=== PATIENT | female | born 1960 | race Caucasian/White ===

== ENCOUNTER → 2020-03-17 08:30 | Outpatient (BNVA) | payer MEDICARE, SELFPAY | PROVIDERS: PCP Internal Medicine Geriatric Medicine; Visit Provider Nurse Practitioner | DX: Z13.89 Encounter for screening for other disorder (principal) | CPT/HCPCS: Q3014 ==

== ENCOUNTER → 2020-03-31 09:52 | Outpatient (BNVA) | payer MEDICARE, MEDICAID, SELFPAY | PROVIDERS: PCP Internal Medicine Geriatric Medicine; Visit Provider Internal Medicine | DX: E03.9 Hypothyroidism, unspecified (principal) | CPT/HCPCS: 99202 ==

== ENCOUNTER 2020-03-31 11:13 | Outpatient (REF) | payer MEDICARE, MEDICAID, SELFPAY ==
[2020-03-31 14:52] LABS: Free T4 (Free Thyroxine) 1.07 ng/dL (0.71-1.85)
[2020-04-01 06:32] LABS: Thyroglobulin Antibodies <1 IU/mL (< or = 1); Thyroid Peroxidase Antibodies 120 IU/mL (<9)
== END 2020-03-31 11:14 | disposition home or self-care (01) ==
LOC: HO.10HDL 11:13
PROVIDERS: Visit Provider Internal Medicine
DX: E03.9 Hypothyroidism, unspecified (principal)
CPT/HCPCS: 36415; 84439; 84443; 86376; 86800

== ENCOUNTER 2020-04-12 07:47 | Outpatient (REF) | payer MEDICARE, MEDICAID, SELFPAY ==
--- NOTE | ~2020-04-12 | US_ITS ---
EXAMINATION: US THYROID CLINICAL INFORMATION: Hypothyroidism, unspecified. COMPARISON: None TECHNIQUE: Linear transducer diego-scale and color Doppler examination with attention to the region of the thyroid. FINDINGS: SIZE: Measurements of the thyroid lobes and nodules are given in sagittal, anteroposterior and transverse dimensions respectively. Right Thyroid Lobe: 4.0 x 1.7 x 1.4 cm, volume 5.0 mL. Parenchyma: The gland echotexture is heterogeneous. Thyroid vascularity is normal. Left Thyroid Lobe: 3.5 x 1.0 x 1.4 cm, volume 2.6 mL. Parenchyma: The gland echotexture is heterogeneous. Thyroid vascularity is normal. Isthmus: 0.4 cm in maximum AP dimension. Estimated total number of nodules greater than or equal to 1 cm: 0. Motor [employer] As[employer]er nodules are described as follows: 1. Location: Right lower pole. Size: 0.8 x 0.7 x 0.7 cm, volume 0.2 mL. Nodule characteristics: Composition: Solid (2). Echogenicity: Hyperechoic (1). Shape: Not taller than wide (0). Margins: Smooth (0). Echogenic Foci: None (0). ACR TI-RADS total points: 3 ACR TI-RADS category: 3 NODES: No lymphadenopathy is seen in the tissue surrounding the thyroid gland. US/US thyroid IMPRESSION: Small heterogeneous thyroid gland. Solitary small right thyroid nodule. ACR TI-RADS RECOMMENDATION REFERENCE: Ultrasound-guided fine-needle aspiration, followup ultrasound, no further follow up. * TR1 (0 point) and TR 2 (2 points): No FNA or follow up * TR3 (3 points): FNA if more than or equal to 2.5 cm in maximum dimension, followup ultrasound in 1, 3 and 5 years if 1.5 to 2.4 cm in maximum dimension. * TR4 (4-6 points): FNA if more than or equal to 1.5 cm in maximum dimension, followup ultrasound in 1, 2, 3 and 5 years if 1 to 1.4 cm in maximum dimension. * TR5 (more than or equal to 7 points): FNA if more than or equal to 1 cm in maximum dimension, followup ultrasound every year for 5 years if 0.5 to 0.9 cm in maximum dimension. * TR3, TR4 or TR5 nodules that are below the size threshold for follow up receive no follow up.
== END 2020-04-12 07:48 | disposition home or self-care (01) ==
LOC: HO.US 07:47
PROVIDERS: PCP Internal Medicine Geriatric Medicine; Visit Provider Internal Medicine
DX: E03.9 Hypothyroidism, unspecified (principal)
CPT/HCPCS: 76536

== ENCOUNTER → 2020-04-14 15:02 | Outpatient (BNVA) | payer MEDICARE, MEDICAID, SELFPAY | PROVIDERS: Visit Provider Internal Medicine | DX: E03.9 Hypothyroidism, unspecified (principal); E04.1 Nontoxic single thyroid nodule; E66.09 Other obesity due to excess calories | CPT/HCPCS: Q3014 ==

== ENCOUNTER → 2020-06-14 10:32 | Outpatient (BNVA) | payer MEDICARE, MEDICAID, SELFPAY | PROVIDERS: PCP Internal Medicine Geriatric Medicine; Visit Provider Internal Medicine | CPT/HCPCS: Q3014 ==

== ENCOUNTER 2020-12-31 13:19 | Outpatient (REF) | payer MEDICARE, MEDICAID, SELFPAY ==
--- NOTE | ~2020-12-31 | CT_ITS ---
EXAMINATION: CT CHEST SCREENING CLINICAL INFORMATION: Nicotine dependence. COMPARISON: None. TECHNIQUE: Multidetector volumetric CT imaging of the chest is performed without contrast using low dose technique. Additional 2-D coronal and sagittal reformatted images and axial 3-D maximum intensity projection (MIP) images are generated on the CT workstation. This CT examination was performed using dose optimization techniques as appropriate, variously including the following: *Automated exposure control *Adjustment of mA and/or kV according to patient size (this includes techniques or standardized protocols for targeted exams where dose is matched to indication/reason for exam; i.e. extremities or head) *Use of iterative reconstruction technique DLP: 293 mGy-cm FINDINGS: LUNGS: The lungs are well expanded and clear of acute pneumonic process. Mild atelectatic changes are seen in the right middle lobe. There are 1 mm punctate calcifications in the right upper lobe, superior segment right lower lobe likely calcified granulomas. There is a noncalcified 4 mm nodule left lower lobe. MEDIASTINUM: The heart size and the great vessels are normal caliber. There is no pericardial effusion. The central trachea and bronchi are widely patent. No abnormal mediastinal or axillary lymph nodes seen. There is no pericardial effusion. The thyroid lobes are symmetrical and normal. PLEURA: There is no pleural effusion. No pleural mass or thickening. AXILLA: There are small shotty lymph nodes in the axilla none of which are significant. The chest wall is unremarkable. UPPER ABDOMEN: Visualized liver, spleen, pancreas, and bilateral adrenal glands are unremarkable. OSSEOUS STRUCTURES: No lytic or sclerotic process seen. CT/CT lung screening IMPRESSION: Punctate 1 mm calcifications. There is a 4 mm noncalcified nodule. ASSESSMENT: Lung-RADS category 2: Benign. RECOMMENDATION: Low-dose annual CT chest.
== END 2020-12-31 13:20 | disposition home or self-care (01) ==
LOC: HO.CT 13:19
PROVIDERS: Visit Provider Physician Assistant Medical
DX: Z12.2 Encounter for screening for malignant neoplasm of respiratory organs (principal); F17.210 Nicotine dependence, cigarettes, uncomplicated
CPT/HCPCS: 71271; G0296

== ENCOUNTER 2021-02-01 09:00 | Outpatient (RCR) | payer MEDICARE, MEDICAID, SELFPAY | END 2021-02-25 10:20 | disposition home or self-care (01) | LOC: HO.PT 09:00 | PROVIDERS: Visit Provider Orthopaedic Surgery | DX: Z98.1 Arthrodesis status (principal) | CPT/HCPCS: 97110; 97116; 97140; 97162; 97530 ==

== ENCOUNTER 2021-06-06 08:27 | Outpatient (REF) | payer MEDICARE, MEDICAID, SELFPAY ==
--- NOTE | ~2021-06-06 | US_ITS ---
EXAMINATION: US THYROID CLINICAL INFORMATION: Nontoxic single thyroid nodule. COMPARISON: US thyroid 04/12/2020. TECHNIQUE: Linear transducer grayscale and color Doppler examination with attention to the region of the thyroid. FINDINGS: SIZE: Measurements of the thyroid lobes and nodules are given in sagittal, anteroposterior and transverse dimensions respectively. Right Thyroid Lobe: 3.6 x 1.3 x 1.6 cm, volume 3.9 mL. Previously 4.0 x 1.7 x 1.4 cm, volume 5.0 mL. Parenchyma: The gland echotexture is heterogeneous. Thyroid vascularity is increased. Left Thyroid Lobe: 3.8 x 1.2 x 1.4 cm, volume 3.3 mL. Previously 3.5 x 1.0 x 1.4 cm, volume 2.6 mL. Parenchyma: The gland echotexture is heterogeneous. Thyroid vascularity is increased. Isthmus: 0.6 cm in maximum AP dimension. Previously 0.4 cm. Estimated total number of nodules greater than or equal to 1 cm: 0. [employer] Manager nodules are described as follows: 1. Location: Right inferior lateral. Size: 0.7 x 0.7 x 0.7 cm, volume 0.2 mL. Previously: 0.8 x 0.7 x 0.7 cm, volume 0.2 mL. Nodule characteristics: Composition: Solid (2). Echogenicity: Hyperechoic (1). Shape: Not taller than wide (0). Margins: Smooth (0). Echogenic Foci: Peripheral calcifications (2). In retrospect this is unchanged. ACR TI-RADS total points: 5 ACR TI-RADS category: 4 Significant change in size (>/= 20% in 2 dimensions and minimal increase of 2 mm or 50% or greater increase in volume): No Change in features: No Change in ACR TI-RADS risk category: No NODES: No lymphadenopathy is seen in the tissue surrounding the thyroid gland. US/US thyroid IMPRESSION: Slightly heterogeneous hypervascular thyroid gland. Stable solitary left thyroid nodule. ACR TI-RADS RECOMMENDATION REFERENCE: Ultrasound-guided fine-needle aspiration, followup ultrasound, no further follow up. * TR1 (0 point) and TR 2 (2 points): No FNA or follow up * TR3 (3 points): FNA if more than or equal to 2.5 cm in maximum dimension, followup ultrasound in 1, 3 and 5 years if 1.5 to 2.4 cm in maximum dimension. * TR4 (4-6 points): FNA if more than or equal to 1.5 cm in maximum dimension, followup ultrasound in 1, 2, 3 and 5 years if 1 to 1.4 cm in maximum dimension. * TR5 (more than or equal to 7 points): FNA if more than or equal to 1 cm in maximum dimension, followup ultrasound every year for 5 years if 0.5 to 0.9 cm in maximum dimension. * TR3, TR4 or TR5 nodules that are below the size threshold for follow up receive no follow up.
== END 2021-06-06 08:28 | disposition home or self-care (01) ==
LOC: HO.US 08:27
PROVIDERS: Visit Provider Internal Medicine
DX: E04.1 Nontoxic single thyroid nodule (principal)
CPT/HCPCS: 76536

== ENCOUNTER → 2021-06-28 07:53 | Outpatient (BNVA) | payer MEDICARE, MEDICAID, SELFPAY | PROVIDERS: PCP Internal Medicine Geriatric Medicine; Visit Provider Nurse Practitioner | DX: K90.89 Other intestinal malabsorption (principal); K21.9 Gastro-esophageal reflux disease without esophagitis; R13.10 Dysphagia, unspecified | CPT/HCPCS: 99212 ==

== ENCOUNTER 2021-08-05 12:20 | Emergency (ER) | payer MEDICARE, MEDICAID, SELFPAY ==
--- NOTE | ~2021-08-05 | CT_ITS ---
EXAMINATION: CT HEAD WITHOUT CONTRAST CLINICAL INFORMATION: Trauma COMPARISON: None TECHNIQUE: Contiguous axial imaging was performed from the skull base to vertex without intravenous administration of contrast. This CT examination was performed using dose optimization techniques as appropriate, variously including the following: *Automated exposure control *Adjustment of mA and/or kV according to patient size (this includes techniques or standardized protocols for targeted exams where dose is matched to indication/reason for exam; i.e. extremities or head) *Use of iterative reconstruction technique DLP: 579 mGy-cm FINDINGS: There is no evidence of acute intracranial hemorrhage or territorial infarction. No abnormal mass effect or midline shift is seen. Banks to white matter differentiation is well preserved. No extra-axial fluid collections are identified. The ventricles are normal in size. There is no abnormal attenuation within the brain parenchyma. The osseous structures and soft tissues are normal. There is bilateral maxillary sinus disease left greater than right. CT/CT head/brain wo con IMPRESSION: No acute intracranial findings. Bilateral maxillary sinus disease.
--- NOTE | ~2021-08-05 | CT_ITS ---
EXAMINATION: CT FACIAL BONES WITHOUT CONTRAST CLINICAL INFORMATION: Fall COMPARISON: None TECHNIQUE: Axial imaging with coronal and sagittal reformatted images. Noncontrast This CT examination was performed using dose optimization techniques as appropriate, variously including the following: *Automated exposure control *Adjustment of mA and/or kV according to patient size (this includes techniques or standardized protocols for targeted exams where dose is matched to indication/reason for exam; i.e. extremities or head) *Use of iterative reconstruction technique DLP: 301 mGy-cm FINDINGS: There is no fracture. Significant sinus disease is noted in the ethmoids and left greater than right maxillary sinuses greater than sphenoid regions. CT/CT facial bones wo con IMPRESSION: No acute fracture is seen here. Note is made of sinus disease.
--- NOTE | ~2021-08-05 | XR_ITS ---
EXAMINATION: XR WRIST, LEFT CLINICAL INFORMATION: Left wrist pain navicular region. Fall. COMPARISON: None TECHNIQUE: Four views of the left wrist. FINDINGS: The bones and soft tissues are normal. No fracture. Alignment is anatomic with normal joint spaces. No erosions or abnormal soft tissue calcifications. XR/XR wrist LT 2V IMPRESSION: Normal left wrist.
--- NOTE | ~2021-08-05 | CT_ITS ---
EXAMINATION: CT CHEST WITHOUT CONTRAST CLINICAL INFORMATION: Right-sided rib pain COMPARISON: Previous chest CT December 2020 TECHNIQUE: Multidetector volumetric CT imaging of the chest was done. Axial MIP volume rendering provided. Sagittal and coronal reformatted images were obtained. This CT examination was performed using dose optimization techniques as appropriate, variously including the following: *Automated exposure control *Adjustment of mA and/or kV according to patient size (this includes techniques or standardized protocols for targeted exams where dose is matched to indication/reason for exam; i.e. extremities or head) *Use of iterative reconstruction technique DLP: 351 mGy-cm FINDINGS: LUNGS: There is evidence of mild paraseptal emphysema. There are small calcified pulmonary nodules that are stable. There is a small 4 mm noncalcified left lower lobe nodule axial image 13 series 3 that is stable. MEDIASTINUM: The heart size is normal. There is mild coronary artery calcification. No pericardial effusion. Upper normal-size thoracic aorta. No enlarged lymph nodes. PLEURA: There is no pleural effusion. No pleural mass or thickening. No pneumothorax. AXILLA: No lymphadenopathy. UPPER ABDOMEN: Unremarkable. OSSEOUS STRUCTURES: There are nondisplaced right lateral fourth through sixth rib fractures. CT/CT chest wo con IMPRESSION: Nondisplaced right lateral rib fractures. No evidence for acute disease in the chest. Stable small calcified and noncalcified pulmonary nodules. Mild paraseptal emphysema. Fleischner guidelines were followed.
--- NOTE | ~2021-08-05 | CT_ITS ---
EXAMINATION: CT CERVICAL SPINE WITHOUT CONTRAST CLINICAL INFORMATION: Fall COMPARISON: None TECHNIQUE: CT scan of the cervical spine with reconstruction imaging performed at the acquisition workstation This CT examination was performed using dose optimization techniques as appropriate, variously including the following: *Automated exposure control *Adjustment of mA and/or kV according to patient size (this includes techniques or standardized protocols for targeted exams where dose is matched to indication/reason for exam; i.e. extremities or head) *Use of iterative reconstruction technique DLP: 458 mGy-cm FINDINGS: Multilevel spondylosis of the cervical spine with advanced degenerative disc changes at C4-5, C5-6, and C6-7 levels with disc space narrowing vacuum disc phenomenon and endplate osteophytes. Facets unremarkable. Slight retrolisthesis of C5 on C6 secondary to the aforementioned degenerative changes. No fracture. CT/CT cervical spine wo con IMPRESSION: Multilevel spondylosis. No acute finding. Fleischner guidelines were followed.
[2021-08-05 12:24] VITALS: BP 130/98; PULSE 94; O2SAT 97
[2021-08-05 12:28] VITALS: BP 152/87; PULSE 82; RESP 18; O2SAT 98; BMI 34.3
[2021-08-05 12:31] VITALS: TEMP 36.6
--- NOTE | 2021-08-05 14:54 | ED.FALL ---
HPI - Fall General Chief Complaint: Fall Stated Complaint: JAW PAIN,HEADACHE,DIZZINESS Time Seen by Provider: 08/05/21 14:42 History of Present Illness HPI Narrative: Patient is a 60-year-old female presents today with having accidentally fallen. Patient denies any dizziness, chest pain prior. Patient tripped over an air conditioner complaining of pain to the reza area complaining of pain to her head. Question loss of consciousness. Pain to her neck. Pain to her right rib area. Patient denies any nausea vomiting. Denies any focal weakness. Patient is from home. Not on blood thinners. Also complaining of pain to the left wrist when she broke her fall. No difficulty swallowing. No changes in voice. Patient is from home. Related Data Home Medications Medication Instructions Recorded Confirmed albuterol sulfate 90 mcg/actuation inhalation PRN 03/31/20 06/14/20 aerosol inhaler cyanocobalamin (vitamin B-12) 1,000 mcg IM 03/31/20 06/14/20 1,000 mcg/mL injection solution ibuprofen 800 mg tablet 800 mg PO TID 03/31/20 06/14/20 mometasone 0.1 % topical cream appl topical DAILY 03/31/20 06/14/20 neomycin 3.5 mg/g-polymyxin B 0.25 ophthalmic-Right TID-QID 03/31/20 06/14/20 10,000 unit/g-dexameth 0.1 % eye oint paroxetine HCl 10 mg tablet 10 mg PO DAILY 03/31/20 06/14/20 polyethylene glycol 3350 17 17 g PO DAILY 03/31/20 06/14/20 gram/dose oral powder levothyroxine 50 mcg tablet 50 mcg PO DAILY 06/14/20 06/14/20 Allergies Allergy/AdvReac Type Severity Reaction Status Date / Time sertraline [From ZOLOFT] Allergy Severe GI Verified 06/28/21 07:59 UPSET/LETHARGY/CONFUSION atorvastatin [ATORVASTATIN] Allergy Intermediate SEVER Verified 06/28/21 07:59 MUSCLE/FOOT PAIN oxycodone [OXYCODONE] Allergy Intermediate GI Verified 06/28/21 07:59 UPSET,CONFUSION cefaclor [From Ceclor] Allergy Mild DYSPNEA Verified 06/28/21 07:59 Penicillins Allergy Mild DYSPNEA Verified 06/28/21 07:59 vancomycin [Vancomycin] Allergy Mild ITCHING Verified 06/28/21 07:59 acetaminophen Allergy Unknown Unknown Verified 06/28/21 07:59 [Tylenol-Codeine #3] penicillin V Allergy Unknown unknown Verified 06/28/21 07:59 Clindamycin HCl Allergy Unknown unknown Uncoded 06/28/21 07:59 Review of Systems Review of Systems: Positive chest wall pain on the right. Worse with movement. Question loss of consciousness. Positive head injury. Yes all other systems are reviewed and are negative PMFSH Past Medical History Attestation statement: The following information was validated with the patient. Medical History B12 deficiency Depression Female bladder prolapse Hyperlipidemia Osteopenia Surgical History History of colonoscopy History of esophagogastroduodenoscopy (EGD) History of foot surgery Hx of cholecystectomy Hx of mammogram Hx of tonsillectomy Family History Family History Father Heart disease Mother Cardiomyopathy Goiter Maternal Grandfather Stomach cancer Social History Social History (Updated 12/31/20 @ 13:21 by Richa Wing PA-C) Alcohol intake: current Alcohol intake frequency: a few times a month Patient Tobacco Use Status: Current everyday Tobacco user Tobacco use type: Cigarette Cigarettes Per Day: 30 Years Smoked: 40 - onset 22, 1.5-2ppd x 40yrs, 60+PYH Advance Directives: No Advance Directives Information Provided: No Patient : No Physical Exam Vital Signs: Vital Signs: Last Vital Signs Temp 97.9 F 08/05/21 12:31 Pulse 82 08/05/21 12:28 Resp 18 08/05/21 12:28 BP 152/87 H 08/05/21 12:28 Pulse Ox 98 08/05/21 12:28 O2 Del Method 08/05/21 12:28 BMI result Body Mass Index 34.3 Appearance: Alert. Oriented X3. No acute distress. Eyes: Pupils equal, round and reactive to light. Positive mild pain on palpation of the chin area. There is no malocclusion noted. There is no midface tenderness on palpation. ENT: Pharynx normal. Neck: Normal inspection. Neck supple. No lymph nodes noted. No crepitus. There is no posterior C-spine tenderness. CVS: Normal heart rate and rhythm. Pulses normal. Normal S1 and S2. There is no clavicular tenderness. There is mild chest wall tenderness on the right. There is no crepitus noted Respiratory: No respiratory distress. Breath sounds normal. No Wheezing. No rales Abdomen: Soft and nontender. No rigidity. No distention. good BS x4 Skin: Skin warm and dry. Normal skin color. Normal skin turgor. Extremities: No lower extremity edema. Neurovascular intact to all extremities. No Lacerations. No Rash. Examination of the left wrist showed no anatomical snuffbox tenderness. There is good sensation in the hands over the median radial and ulnar nerves. Capillary refill less than 2 seconds. Skin intact. Range of motion intact at the wrist with no deficits flexion extension medial ulnar deviation. Neuro: Oriented X 3. No motor deficit. No sensory deficit. Moving all extermities. No slurred speech MDM - Fall MDM Narrative Medical decision making narrative: CT scan head face C-spine chest was ordered. Labs ordered. X-rays ordered. Unfortunately patient eloped from the emergency department prior to the x-ray and the CT scan. Medical Records Attestation: I reviewed the patient's medical records. Discharge Plan Discharge Clinical Impression: Fall, Head injury Prescriptions: No Action levothyroxine 50 mcg tablet 50 mcg PO DAILY cyanocobalamin (vitamin B-12) 1,000 mcg/mL solution 1,000 mcg IM ibuprofen 800 mg tablet 800 mg PO TID paroxetine HCl 10 mg tablet 10 mg PO DAILY polyethylene glycol 3350 17 gram/dose powder 17 g PO DAILY albuterol sulfate 90 mcg/actuation HFA aerosol inhaler inhalation PRN mometasone 0.1 % cream topical DAILY neomycin-polymyxin B-dexameth 3.5 mg/g-10,000 unit/g-0.1 % ointment 0.25 ophthalmic-Right TID-QID
[2021-08-05 15:30] LABS: MANUAL DIFF FLAG NO
[2021-08-05 15:33] LABS: Basophils Absolute Auto 0.1 X10*3/uL (0.0-0.2); Basophils Percent Auto 0.4 % (0-2); Eosinophils Absolute Auto 0.2 X10*3/uL (0.0-0.4); Eosinophils Percent Auto 1.6 % (0-4); Hematocrit 47.5 % (37.0-47.0); Hemoglobin 15.1 g/dl (12.0-16.0); Imm Gran Abs Auto 0.06 X10*3/uL (0.00-0.03); Imm Gran Pct Auto 0.5 % (0.0-0.4); Lymphocytes Absolute Auto 2.3 X10*3/uL (1.2-4.9); Lymphocytes Percent Auto 20.1 % (20-40); Mean Corpuscular HGB Conc 31.8 g/dl (31.0-35.0); Mean Corpuscular Hemoglobin 29.3 pg (27.0-33.0); Mean Corpuscular Volume 92.2 fL (80.0-98.0); Mean Platelet Volume 10.2 fL (9.4-12.3); Monocytes Absolute Auto 0.6 X10*3/uL (0.1-1.2); Monocytes Percent Auto 5.2 % (2-11); Neutrophils Absolute Auto 8.1 x10*3/uL (2.0-8.3); Neutrophils Percent Auto 72.2 % (45-73); Platelet Count 265 X10*3/uL (160-400); Red Blood Count 5.15 X10*6/uL (4.20-5.50); White Blood Count 11.2 X10*3/uL (4.8-10.8)
[2021-08-05 15:50] LABS: Anion Gap 12 (12-20); Blood Urea Nitrogen 12 mg/dL (9-16); Calcium 9.8 mg/dL (8.4-10.2); Carbon Dioxide 27 mmol/L (22-29); Chloride 106 mmol/L (96-108); Creatinine Clr Calc Pharmacy 102.6; Estimated Glomerular Filt Rate > 60; Glucose Random 99 mg/dL (60-115); Potassium 4.5 mmol/L (3.3-5.1); Sodium 140 mmol/L (135-145)
[2021-08-05 17:02] VITALS: BP 146/102; PULSE 95; RESP 18; O2SAT 99
--- NOTE | 2021-08-05 17:09 | PC.NURSE ---
Pt provided with DC instructions and incentive spirometry. Pt verbalized understanding and was able to teach back IS teachings. Pt A/O and discharged home at this time.
== END 2021-08-05 17:10 | disposition home or self-care (01) ==
PROVIDERS: Emergency Provider Emergency Medicine Emergency Medical Services; PCP Internal Medicine Geriatric Medicine
DX: R07.81 Pleurodynia (principal); R51.9 Headache, unspecified; R68.84 Jaw pain; M25.532 Pain in left wrist; M54.6 Pain in thoracic spine; M54.2 Cervicalgia; R42 Dizziness and giddiness; F17.210 Nicotine dependence, cigarettes, uncomplicated; Z71.6 Tobacco abuse counseling
CPT/HCPCS: 36415; 70450; 70486; 71250; 72125; 73100; 80048; 85025; 99284

== ENCOUNTER → 2021-09-14 09:07 | Outpatient (BNVA) | payer MEDICARE, MEDICAID, SELFPAY | PROVIDERS: PCP Internal Medicine Geriatric Medicine; Visit Provider Internal Medicine | DX: E03.9 Hypothyroidism, unspecified (principal); E04.1 Nontoxic single thyroid nodule | CPT/HCPCS: 99212 ==

== ENCOUNTER 2022-01-04 06:33 | Emergency (ER) | payer MEDICARE, MEDICAID, SELFPAY ==
--- NOTE | ~2022-01-04 | XR_ITS ---
EXAMINATION: XR ABDOMEN COMPLETE CLINICAL INDICATION: Pain COMPARISON: None TECHNIQUE: 2 views of the abdomen. FINDINGS: There is scattered gas and stool seen in colon without distention. There is no organomegaly. No radiopaque renal or gallbladder calculi seen. No gross bony abnormality. XR/XR abdomen min 2V IMPRESSION: Mild constipation.
[2022-01-04 06:39] VITALS: BP 122/75; BP 152/70; PULSE 82; PULSE 87; RESP 16; TEMP 36.3; O2SAT 97; O2SAT 98; BMI 34.7
--- NOTE | 2022-01-04 06:54 | ED_ITS ---
HPI - Abdominal Pain General Chief Complaint: Abdominal Pain Stated Complaint: Abd pain Time Seen by Provider: 01/04/22 06:52 Source: patient Mode of arrival: ambulatory Limitations: no limitations History of Present Illness HPI narrative: Diffuse abdominal pain, with diarrhea and mucous. patient with consistent pain, she is going frequently with mucous. MD elicited complaint: abdominal pain Pertinent past history: other (diarrhea) Onset (ago): week(s) Pain Consistency: intermittent Location: diffuse Severity: moderate Quality: cramping Exacerbating factors: eating Relieving factors: nothing Associated symptoms: diarrhea Related Data Home Medications Medication Instructions Recorded Confirmed albuterol sulfate 90 mcg/actuation inhalation PRN 03/31/20 09/14/21 aerosol inhaler cyanocobalamin (vitamin B-12) 1,000 mcg IM 03/31/20 09/14/21 1,000 mcg/mL injection solution ibuprofen 800 mg tablet 800 mg PO TID 03/31/20 09/14/21 mometasone 0.1 % topical cream appl topical DAILY 03/31/20 09/14/21 neomycin 3.5 mg/g-polymyxin B 0.25 ophthalmic-Right TID-QID 03/31/20 09/14/21 10,000 unit/g-dexameth 0.1 % eye oint paroxetine HCl 10 mg tablet 10 mg PO DAILY 03/31/20 09/14/21 polyethylene glycol 3350 17 17 g PO DAILY 03/31/20 09/14/21 gram/dose oral powder levothyroxine 50 mcg tablet 50 mcg PO DAILY 06/14/20 09/14/21 cholecalciferol (vitamin D3) 1,250 1,250 mcg PO QWEEK 09/14/21 09/14/21 mcg (50,000 unit) capsule multivitamin 1 tab PO DAILY 09/14/21 09/14/21 tizanidine 2 mg tablet 2 mg PO BEDTIME 09/14/21 09/14/21 Previous Rx's Medication Instructions Recorded xwduhxzpp-rgzvcijfa-qqhduass-scop 1 tab PO BID PRN indigestion #14 01/04/22 16.2 mg-0.1037 mg-0.0194 mg tablet tabs () psyllium husk 3.4 gram/5.4 gram 1 tbsp PO DAILY #660 grams 01/04/22 oral powder (Metamucil) Allergies Allergy/AdvReac Type Severity Reaction Status Date / Time sertraline [From ZOLOFT] Allergy Severe GI Verified 09/14/21 09:17 UPSET/LETHARGY/CONFUSION atorvastatin [ATORVASTATIN] Allergy Intermediate SEVER Verified 09/14/21 09:17 MUSCLE/FOOT PAIN oxycodone [OXYCODONE] Allergy Intermediate GI Verified 09/14/21 09:17 UPSET,CONFUSION cefaclor [From Ceclor] Allergy Mild DYSPNEA Verified 09/14/21 09:17 Penicillins Allergy Mild DYSPNEA Verified 09/14/21 09:17 vancomycin [Vancomycin] Allergy Mild ITCHING Verified 09/14/21 09:17 acetaminophen Allergy Unknown Unknown Verified 09/14/21 09:17 [Tylenol-Codeine #3] penicillin V Allergy Unknown unknown Verified 09/14/21 09:17 Clindamycin HCl Allergy Unknown unknown Uncoded 09/14/21 09:17 Review of Systems Constitutional: Reports no additional constitutional complaints Eyes: Reports no additional eye complaints Denies dizziness Cardiovascular: Reports no additional cardiovascular complaints Respiratory: Reports as per HPI Gastrointestinal: Reports no additional gastrointestinal complaints Genitourinary: Reports no additional female genitourinary complaints Musculoskeletal: Reports no additional musculoskeletal complaints Skin/Breast: Denies rash Reports system reviewed and no additional complaints, except as documented, Denies dizziness and Denies Sensory deficit (Neuro) Psychiatric: Denies anxiety PMFSH Past Medical History Medical History B12 deficiency Depression Female bladder prolapse Hyperlipidemia Hypothyroidism (~2014) Obesity Osteopenia Personal history of nicotine dependence Thyroid nodule Surgical History History of colonoscopy History of esophagogastroduodenoscopy (EGD) History of foot surgery Hx of cholecystectomy Hx of mammogram Hx of tonsillectomy Family History Family History Father Heart disease Mother Cardiomyopathy Goiter Maternal Grandfather Stomach cancer Social History Social History Alcohol intake: current Alcohol intake frequency: a few times a month Patient Tobacco Use Status: Current everyday Tobacco user Tobacco use type: Cigarette Cigarettes Per Day: 30 Years Smoked: 40 - onset 22, 1.5-2ppd x 40yrs, 60+PYH Advance Directives: No Physical Exam ED Vital Signs: Vital Signs - 24 hr 01/04/22 06:39 01/04/22 07:38 Temperature 97.3 F Pulse Rate 87 75 Respiratory Rate 16 18 Blood Pressure 122/75 121/75 Pulse Oximetry 97 94 Oxygen Delivery Method Room Air Room Air BMI result Body Mass Index 34.7 Neuro Sensory Exam: No Sensory deficit (Neuro) Course Reevaluation(s) Reevaluation #1: Xray and labs are normal, patient with mild constipation. Will place on donatal for pain and metamucil for fiber Time: 08:48 Medications Administered Generic Name Dose Route Start Last Admin Trade Name Freq PRN Reason Stop Dose Admin Sodium Chloride 500 mls @ 250 mls/hr 01/04/22 07:15 01/04/22 07:27 Ns IVCONT 01/04/22 09:14 250 mls/hr .Q2H RHIANNA Administration Discontinued Medications Generic Name Dose Route Start Last Admin Trade Name Freq PRN Reason Stop Dose Admin Pantoprazole Sodium 40 mg 01/04/22 06:59 01/04/22 07:27 Pantoprazole Sodium 40 Mg/10 Ml Vial IVPUSH 01/04/22 07:00 40 mg ONCE ONE Administration MDM - Abdominal Pain Lab Data Result diagrams: 01/04/22 07:20 01/04/22 07:20 Labs: Lab Results 01/04/22 01/04/22 01/04/22 Range/Units 07:20 07:20 07:20 WBC 9.3 (4.8-10.8) X10*3/uL RBC 5.23 (4.20-5.50) X10*6/uL Hgb 15.2 (12.0-16.0) g/dl Hct 47.8 H (37.0-47.0) % MCV 91.4 (80.0-98.0) fL MCH 29.1 (27.0-33.0) pg MCHC 31.8 (31.0-35.0) g/dl RDW 13.7 (11.0-16.0) % Plt Count 281 (160-400) X10*3/uL MPV 10.0 (9.4-12.3) fL Immature Gran % (Auto) 0.3 (0.0-0.4) % Neut % (Auto) 60.4 (45-73) % Lymph % (Auto) 26.8 (20-40) % [place] % (Auto) 8.6 (2-11) % Eos % (Auto) 3.4 (0-4) % Baso % (Auto) 0.5 (0-2) % Lymph # (Auto) 2.5 (1.2-4.9) X10*3/uL [place] # (Auto) 0.8 (0.1-1.2) X10*3/uL Eos # (Auto) 0.3 (0.0-0.4) X10*3/uL Baso # (Auto) 0.1 (0.0-0.2) X10*3/uL Abs Immat Gran (auto) 0.03 (0.00-0.03) X10*3/uL Absolute Neuts (auto) 5.6 (2.0-8.3) x10*3/uL Absolute Nucleated RBC 0.000 (0.0-0.012) X10*3/uL Nucleated RBC % (auto) 0.0 (0.0-0.2) /100WBC Sodium 140 (135-145) mmol/L Potassium 4.1 (3.3-5.1) mmol/L Chloride 103 (96-108) mmol/L Carbon Dioxide 26 (22-29) mmol/L Anion Gap 15 (12-20) BUN 14 (9-16) mg/dL Creatinine 0.77 (0.5-1.4) mg/dL Estim Creat Clear Calc 92.6 Estimated GFR > 60 Random Glucose 105 (60-115) mg/dL Calcium 9.6 (8.4-10.2) mg/dL Total Bilirubin 0.5 (0.0-1.0) mg/dL AST 16 (5-31) U/L ALT 12 (0-31) U/L Alkaline Phosphatase 107 (39-117) U/L Total Protein 7.2 (6.5-8.0) g/dL Albumin 4.2 (3.5-5.0) g/dL Lipase 27 (8-78) U/L Urine Color Straw Urine Appearance Clear Urine pH 5.5 (5.0-9.0) Ur Specific [place] <= 1.005 (1.005-1.025) Urine Protein Negative (Neg-Trace) mg/dL Urine Glucose (UA) Negative (Negative) mg/dL Urine Ketones Negative (Negative) mg/dL Urine Blood Negative (Negative) Urine Nitrite Negative (Negative) Ur Leukocyte Esterase Negative (Negative) Imaging Data Abdominal x-ray: Radiologist's impression: EXAMINATION: XR ABDOMEN COMPLETE CLINICAL INDICATION: Pain COMPARISON: None TECHNIQUE: 2 views of the abdomen. FINDINGS: There is scattered gas and stool seen in colon without distention. There is no organomegaly. No radiopaque renal or gallbladder calculi seen. No gross bony abnormality. XR/XR abdomen min 2V IMPRESSION: Mild constipation. ? Dictated By: Jason Bacon MD Signed By: <Electronically signed by Jason Bacon MD in OV> Discharge Plan Discharge Clinical Impression: Irritable bowel Patient Disposition: Home, Self-Care Instructions: Irritable Bowel Syndrome (ED), Constipation (ED) Prescriptions: New Metamucil 3.4 gram/5.4 gram powder 1 tbsp PO DAILY Qty: 660 0RF Rx Instructions: mix into at least 8 oz of water or juice before administering wdykkrtqr-slxshv-smsrpriy-scop [] 16.2-0.1037 -0.0194 mg tablet 1 tab PO BID PRN (Reason: indigestion) Qty: 14 0RF No Action levothyroxine 50 mcg tablet 50 mcg PO DAILY cyanocobalamin (vitamin B-12) 1,000 mcg/mL solution 1,000 mcg IM ibuprofen 800 mg tablet 800 mg PO TID paroxetine HCl 10 mg tablet 10 mg PO DAILY polyethylene glycol 3350 17 gram/dose powder 17 g PO DAILY albuterol sulfate 90 mcg/actuation HFA aerosol inhaler inhalation PRN mometasone 0.1 % cream topical DAILY neomycin-polymyxin B-dexameth 3.5 mg/g-10,000 unit/g-0.1 % ointment 0.25 ophthalmic-Right TID-QID tizanidine 2 mg tablet 2 mg PO BEDTIME cholecalciferol (vitamin D3) 1,250 mcg (50,000 unit) capsule 1,250 mcg PO QWEEK multivitamin Tablet 1 tab PO DAILY Referrals: Name,MD Krzysztof [Primary Care Provider] - 5 days
[2022-01-04 07:27] LABS: MANUAL DIFF FLAG NO
[2022-01-04] MEDS: Pantoprazole Sodium 40 MG/10 ML VIAL IVPUSH (07:27)
[2022-01-04] MEDS: 0.9 % Sodium Chloride 500 ML 250 ML IVCONT (07:27)
[2022-01-04 07:29] LABS: Basophils Absolute Auto 0.1 X10*3/uL (0.0-0.2); Basophils Percent Auto 0.5 % (0-2); Eosinophils Absolute Auto 0.3 X10*3/uL (0.0-0.4); Eosinophils Percent Auto 3.4 % (0-4); Hematocrit 47.8 % (37.0-47.0); Hemoglobin 15.2 g/dl (12.0-16.0); Imm Gran Abs Auto 0.03 X10*3/uL (0.00-0.03); Imm Gran Pct Auto 0.3 % (0.0-0.4); Lymphocytes Absolute Auto 2.5 X10*3/uL (1.2-4.9); Lymphocytes Percent Auto 26.8 % (20-40); Mean Corpuscular HGB Conc 31.8 g/dl (31.0-35.0); Mean Corpuscular Hemoglobin 29.1 pg (27.0-33.0); Mean Corpuscular Volume 91.4 fL (80.0-98.0); Monocytes Absolute Auto 0.8 X10*3/uL (0.1-1.2); Monocytes Percent Auto 8.6 % (2-11); Neutrophils Absolute Auto 5.6 x10*3/uL (2.0-8.3); Neutrophils Percent Auto 60.4 % (45-73); Platelet Count 281 X10*3/uL (160-400); Red Blood Count 5.23 X10*6/uL (4.20-5.50); Red Cell Distribution Width 13.7 % (11.0-16.0); White Blood Count 9.3 X10*3/uL (4.8-10.8)
[2022-01-04 07:38] VITALS: BP 121/75; PULSE 75; RESP 18; O2SAT 94
[2022-01-04 07:38] LABS: Appearance Urine Clear; Color Urine Straw; Glucose Urine UA Negative (Negative); Leukocyte Esterase Urine Negative (Negative); Nitrite Urine Negative (Negative); PH 5.5 (5.0-9.0); Specific Gravity - Urine <= 1.005 (1.005-1.025); Urine Blood Negative (Negative); Urine Ketones Negative (Negative); Urine Protein Negative (Neg-Trace)
[2022-01-04 07:43] LABS: Alanine Aminotransferase 12 U/L (0-31); Albumin Level 4.2 g/dL (3.5-5.0); Alkaline Phosphatase 107 U/L (39-117); Anion Gap 15 (12-20); Aspartate Amino Transferase 16 U/L (5-31); Bilirubin Total 0.5 mg/dL (0.0-1.0); Blood Urea Nitrogen 14 mg/dL (9-16); Calcium 9.6 mg/dL (8.4-10.2); Carbon Dioxide 26 mmol/L (22-29); Chloride 103 mmol/L (96-108); Creatinine Clr Calc Pharmacy 92.6; Estimated Glomerular Filt Rate > 60; Glucose Random 105 mg/dL (60-115); Lipase 27 U/L (8-78); Potassium 4.1 mmol/L (3.3-5.1); Sodium 140 mmol/L (135-145); Total Protein 7.2 g/dL (6.5-8.0)
== END 2022-01-04 09:02 | disposition home or self-care (01) ==
PROVIDERS: Emergency Provider Emergency Medicine; PCP Internal Medicine Geriatric Medicine
DX: K58.9 Irritable bowel syndrome, unspecified (principal); R10.9 Unspecified abdominal pain; F17.210 Nicotine dependence, cigarettes, uncomplicated; Z79.899 Other long term (current) drug therapy; Z71.6 Tobacco abuse counseling
CPT/HCPCS: 36415; 74019; 80053; 81003; 83690; 85025; 96374; 99283; 99284

== ENCOUNTER → 2022-04-04 14:57 | Outpatient (BNVA) | payer MEDICARE, MEDICAID, SELFPAY | PROVIDERS: PCP Internal Medicine Geriatric Medicine; Referring Provider Internal Medicine Geriatric Medicine; Visit Provider Nurse Practitioner | DX: K90.89 Other intestinal malabsorption (principal); K21.9 Gastro-esophageal reflux disease without esophagitis; R13.10 Dysphagia, unspecified | CPT/HCPCS: 99212 ==

== ENCOUNTER 2022-08-31 08:45 | Outpatient (REF) | payer MEDICARE, MEDICAID, SELFPAY ==
[2022-08-31 15:35] LABS: TSH reflex Free T4 4.39 uIU/mL (0.32-4.0)
[2022-08-31 16:12] LABS: Free T4 (Free Thyroxine) 1.03 ng/dL (0.71-1.85)
== END 2022-08-31 08:46 | disposition home or self-care (01) ==
LOC: HO.HHCL 08:45
PROVIDERS: Visit Provider Internal Medicine Geriatric Medicine
DX: E03.8 Other specified hypothyroidism (principal)
CPT/HCPCS: 36415; 84439; 84443

== ENCOUNTER 2022-10-05 13:40 | Outpatient (AMB) | payer MEDICARE, MEDICAID, SELFPAY ==
--- NOTE | 2022-10-05 13:42 | MHC.OFFVIS ---
Intake Vital Signs 10/05/22 13:54 Height 5 ft 6 in Weight 218 lb BMI 35.2 BP 141/73 H Blood Pressure Location Lt brachial Position Sitting Pulse 80 Intake Visit Reasons: umbilical hernia Intake Note: Patient is seen in office for evaluation and treatment of an umbilical hernia. Patient c/o: onset since having a hysterectomy on 05/2022, had past surgeries in the area such as c-sections and cholecystectomy, states area is still sore from recent surgery, pain, diarrhea, GERD, IBS denies nausea, vomit, constipation Batch Mixer Required: No Accompanied by: Other Relationship Allergies sertraline [From ZOLOFT] Allergy (Severe, Verified 10/05/22 13:51) GI UPSET/LETHARGY/CONFUSION atorvastatin [ATORVASTATIN] Allergy (Intermediate, Verified 10/05/22 13:51) SEVER MUSCLE/FOOT PAIN oxycodone [OXYCODONE] Allergy (Intermediate, Verified 10/05/22 13:51) GI UPSET,CONFUSION cefaclor [From Ceclor] Allergy (Mild, Verified 10/05/22 13:51) DYSPNEA Penicillins Allergy (Mild, Verified 10/05/22 13:51) DYSPNEA vancomycin [Vancomycin] Allergy (Mild, Verified 10/05/22 13:51) ITCHING acetaminophen [Tylenol-Codeine #3] Allergy (Unknown, Verified 10/05/22 13:51) Unknown penicillin V Allergy (Unknown, Verified 10/05/22 13:51) unknown Medication List - Last Reconciled 10/05/22 by Sp Dubois MD albuterol sulfate 90 mcg/actuation inhalation PRN cyanocobalamin (vitamin B-12) 1,000 mcg IM hydrocodone-acetaminophen 5-300 mg 1 tab PO BID PRN ibuprofen 800 mg PO TID levothyroxine 50 mcg PO DAILY mometasone 0.1% appl topical DAILY multivitamin 1 tab PO DAILY naloxone 4 mg/actuation 0 sprays intranasal paroxetine HCl 10 mg PO DAILY lodrnwmcb-ibkkyg-ipiafvqa-scop 16.2-0.1037 -0.0194 mg () 1 tab PO BID PRN polyethylene glycol 3350 17 grams PO DAILY HPI HPI Comments History of Present Illness Details 61-year-old female patient presenting with complaints of abdominal pain in a periumbilical location with a palpable lump. This is been developing over the last several months and seems to be increasing in size. The patient has had multiple abdominal surgeries including several Caesarean sections, hysterectomy, and open cholecystectomy. She was subsequently evaluated by CT abdomen and pelvis which confirmed a 2.5 cm ventral hernia/incisional hernia above the umbilicus. She denies nausea, vomiting, fever, or chills. She also denies any new bowel changes but does report a prior history of IBS and GERD. [facility], [facility] Medical History B12 deficiency Depression Female bladder prolapse Hyperlipidemia Hypothyroidism (~2014) Obesity Osteopenia Personal history of nicotine dependence Thyroid nodule Surgical History History of colonoscopy History of esophagogastroduodenoscopy (EGD) History of foot surgery History of partial hysterectomy (05/2022) Hx of cholecystectomy Hx of mammogram Hx of tonsillectomy Family History Father Heart disease Mother Cardiomyopathy Goiter Maternal Grandfather Stomach cancer Social History Alcohol intake: current Alcohol intake frequency: a few times a month Patient Tobacco Use Status: Current everyday Tobacco user Tobacco use type: Cigarette Cigarettes Per Day: 30 Years Smoked: 40 - onset 22, 1.5-2ppd x 40yrs, 60+PYH Review of Systems Const All systems reviewed & are unremarkable except as noted in HPI and below Denies chills, Denies fever(s), Denies headache(s), Denies poor appetite and Denies weakness ENT Denies headache(s) Card Denies chest pain, Denies irregular heart rhythm, Denies palpitations and Denies dyspnea Resp Denies cough, Denies excessive phlegm production and Denies dyspnea GI Reports abdominal pain, Denies bloating, Denies change in bowel habits, Denies constipation, Reports heartburn, Denies diarrhea, Denies nausea and Denies vomiting Denies urinary frequency Musc Denies back pain, Denies muscle weakness and Denies numbness Skin/Breast Denies changing lesions and Denies unusual bruising Neuro Denies headache(s), Denies numbness, Denies paresthesias and Denies weakness Psych Denies anxiety and Denies depression Endo Denies palpitations Romel/Lymph Denies lymphadenopathy Physical Exam Vital Signs: Last Vital Signs Pulse 80 10/05/22 13:54 BP 141/73 H 10/05/22 13:54 BMI result Body Mass Index 35.2 Const General: cooperative and no acute distress Nutritional Appearance: well nourished Orientation/consciousness: patient oriented x3 Limitations: no limitations and ambulation with cane HEENT Head: Yes normocephalic and Yes atraumatic Ears: hearing grossly normal bilaterally Neck Neck: Yes normal visual inspection Resp Effort & Inspection: normal respiratory effort, no audible wheezes, no cough and no respiratory distress Cardio Jugular venous distension: no JVD GI Inspection: Yes normal to inspection and Yes obesity Palpation (GI): Soft to palpation, nontender, no guarding and not rigid Abdomen image: 1. Palpable hernia located above the umbilicus which increases in size with Valsalva maneuvers. Skin Other: Warm, dry, no rash Redundant abdominal skin Neuro General: patient oriented x3 Extrem General: Yes no clubbing, cyanosis or edema Assessment & Plan Assessment & Plan (1) Incisional hernia without obstruction or gangrene: Code(s): K43.2 - Incisional hernia without obstruction or gangrene Plan 61-year-old female patient presenting with a probable incisional hernia located above the umbilicus confirmed by CT abdomen and pelvis. On examination there is a palpable lump located just above the umbilicus measuring approximately 3.5 cm in diameter. The lump increases in size with Valsalva maneuvers and reduces with light pressure. Findings are consistent with an incisional hernia. I recommended repair of this incisional hernia with mesh on elective basis. After discussion of the procedure, risks, and alternatives, he consents to the repair of the incisional hernia with mesh. This will be scheduled at her earliest convenience. Coding Level of Care Code New Pt Level 4 (01669) Diagnoses Incisional hernia without obstruction or gangrene K43.2
[2022-10-05 13:54] VITALS: BP 141/73; PULSE 80; BMI 35.2
== END 2022-10-05 14:05 | disposition home or self-care (01) ==
PROVIDERS: PCP Internal Medicine Geriatric Medicine; Visit Provider Surgery
DX: K43.2 Incisional hernia without obstruction or gangrene (principal)
CPT/HCPCS: 99204

== ENCOUNTER → 2022-10-05 13:40 | Outpatient (BNVA) | payer MEDICARE, MEDICAID, SELFPAY | PROVIDERS: PCP Internal Medicine Geriatric Medicine; Visit Provider Surgery | DX: K43.2 Incisional hernia without obstruction or gangrene (principal) | CPT/HCPCS: 99202 ==

== ENCOUNTER 2022-11-01 08:21 | Outpatient (AMB) | payer MEDICARE, MEDICAID, SELFPAY ==
--- NOTE | 2022-11-01 08:30 | MHC.OFFVIS ---
Intake Vital Signs 11/01/22 08:31 Height 5 ft 6 in Weight 212 lb 15.465 oz BMI 34.4 BP 105/68 Blood Pressure Location Lt brachial Position Sitting Pulse 111 H Intake Visit Reasons: IBS / Gerd EST [facility] May Intake Note: Patient returns to in office visit today in follow up for abdominal pain. CC: pain from gastritis , nausea, throbbing sensation from esophagus, foul smell from stool x 2 days, abdominal pain x 6 days. She states stools started brown a few days ago, then they were black, then orange, and now they smell really bad. S/p hysterectomy and double prolapse repair 05/15/22. She reports it does not matter what she eats she continues to have pain. Medical Information Specialist Required: No Allergies sertraline [From ZOLOFT] Allergy (Severe, Verified 11/01/22 08:37) GI UPSET/LETHARGY/CONFUSION atorvastatin [ATORVASTATIN] Allergy (Intermediate, Verified 11/01/22 08:37) SEVER MUSCLE/FOOT PAIN oxycodone [OXYCODONE] Allergy (Intermediate, Verified 11/01/22 08:37) GI UPSET,CONFUSION cefaclor [From Ceclor] Allergy (Mild, Verified 11/01/22 08:37) DYSPNEA Penicillins Allergy (Mild, Verified 11/01/22 08:37) DYSPNEA vancomycin [Vancomycin] Allergy (Mild, Verified 11/01/22 08:37) ITCHING acetaminophen [Tylenol-Codeine #3] Allergy (Unknown, Verified 11/01/22 08:37) Unknown penicillin V Allergy (Unknown, Verified 11/01/22 08:37) unknown HPI IBS / Gerd EST [facility] May HPI Details Assessment & Plan (1) Bile salt-induced diarrhea: ?Code(s): K90.89 - Other intestinal malabsorption ?Plan: She is having very bad diarrhea, and even when the stool is soft she has bleeding and she has some trouble evacuating, because it is too soft. She has tried FODMAP and avoiding foods but she can not find any particular food that sets it off. She will be having surgery to correct uterine prolapse and bladder prolapse soon and this will likely be helpful. She never tried the carafate, after more education she is agreeable to trying starting at 1/2 pill at 4pm daily. She is having a lot of rectal bleeding. She went to the ER and was put on pheno/levsin which worked, but then her PCP put her on bentyl which did not work. These meds will not correct the underlying problem, so they are not the best approach. ROV 4-6 weeks. (2) GERD (gastroesophageal reflux disease): ?Code(s): K21.9 - Gastro-esophageal reflux disease without esophagitis (3) Dysphagia: ?Code(s): R13.10 - Dysphagia, unspecified ? ? ? Medications: New sucralfate (Carafa te) 1 g? PO .q4pm 30 tabs 3RF K90.89 - Other int estinal malabsorpt ion ? TODAY'S VISIT She had several surgeries for hyst and bladder sling. This was at [facility]. Since she has copious diarrhea 10-15 times a day with varying consistencies and color, some black but some bile yellow and green. She has pain in the bilateral lower abdomen like menses cramps that are 10/10 and relieved a while after BM, and soreness around the umbilicus. She also has pain in the upper mid stomach with eating that is better with donnatol. The diarrhea smells like something and is different than she has ever had, she is concerned re: Internal bleeding. She says that she has been losing weight. Has upcoming surgery with Dr. Perkins for paraumbilcal/ventral hernia end of november ? . Had umbilical cellulits and abx. Will check for c diff etc, FIT, CBC. Filling donnatol, she did not have success with carafate and cholestyramine. ROV 2 weeks. [facility] Medical History (Updated 11/01/22 @ 09:05 by BARBIE Thomas) Female bladder prolapse B12 deficiency Depression Hyperlipidemia Osteopenia Personal history of nicotine dependence Obesity Thyroid nodule Hypothyroidism (~2014) Surgical History History of partial hysterectomy (05/2022) History of colonoscopy History of foot surgery Hx of mammogram Hx of cholecystectomy Hx of tonsillectomy History of esophagogastroduodenoscopy (EGD) Family History Father Heart disease Mother Cardiomyopathy Goiter Maternal Grandfather Stomach cancer Social History Alcohol intake: current Alcohol intake frequency: a few times a month Patient Tobacco Use Status: Current everyday Tobacco user Tobacco use type: Cigarette Cigarettes Per Day: 30 Years Smoked: 40 - onset 22, 1.5-2ppd x 40yrs, 60+PYH Review of Systems Const Denies fatigue, Denies fever(s), Denies night sweats, Denies poor appetite and Reports weight loss ENT Reports Normal hearing present, Denies dental pain, Denies dysphagia, Denies hearing loss, Denies mouth pain, Denies odynophagia, Denies throat swelling, Denies tongue swelling and Reports other (Dentition adequate) Card Reports no additional complaints Resp Reports no additional complaints GI Reports abdominal pain, Denies melena, Denies bloating, Reports hematochezia, Denies constipation, Reports GI cramping, Denies dysphagia, Denies excessive flatus, Denies early satiety, Denies heartburn, Reports diarrhea, Denies nausea, Denies odynophagia, Denies vomiting and Denies hematemesis Skin/Breast Denies pruritus, Denies lesions, Denies rash and Denies jaundice Neuro Reports Normal hearing present and Denies Abnormal speech present Endo Denies fatigue Aller/Immun Denies throat swelling and Denies tongue swelling Physical Exam Vital Signs: Last Vital Signs Pulse 111 H 11/01/22 08:31 BP 105/68 11/01/22 08:31 BMI result Body Mass Index 34.4 Const General: cooperative, no acute distress, well developed and well groomed Nutritional Appearance: well nourished and obese Orientation/consciousness: oriented to person, oriented to place and oriented to time Limitations: No language barrier and ambulation with cane HEENT Head: Yes normocephalic and Yes atraumatic Eyes General: appearance normal, both eyes and all related structures Pupils: Equal, round and reactive pupils present Neck Neck: Yes normal visual inspection and Yes no lymphadenopathy Thyroid: Thyroid normal Resp Effort & Inspection: normal respiratory effort and able to speak in complete sentences Auscultation: clear to auscultation bilaterally Cardio Rate: regular rate Rhythm: regular rhythm Heart sounds: Normal, physiologic split S2 sound present Peripheral pulses: radial pulses present and posterior tibial pulses present GI Inspection: No distended, Yes Abdominal panniculus present, Yes obesity and Yes scar Palpation (GI): Soft to palpation, nontender, no guarding, not rigid and No hepatosplenomegaly present Percussion: Yes normal to percussion Auscultation: normal bowel sounds Rectal Exam - Female: deferred Abdomen image: 1. OLD SURGICAL SCAR 2. WLEL HEALING RECTEN SURGICAL SCARS 3. 4. 5. 6. 7. Skin General skin exam: no rashes or lesions noted, turgor normal, skin not dry, no jaundice, No spider nevi and no striae Rashes: no rashes Nails: normal Neuro General: oriented to person, oriented to place and oriented to time Cranial nerves: Yes Equal, round and reactive pupils present and Yes Normal hearing present Speech: No Abnormal speech present Extrem General: Yes normal to inspection, No clubbing, No cyanosis and No edema Psych Appearance: grossly normal and well kempt Mental Status: mental status grossly normal Speech and movement: Normal speech and movement present Affect: normal affect Attitude: cooperative Thought process: Normal thought process present and not confabulating Thought content: Normal thought content present Insight: Fair insight present (Psych) Judgement: Fair judgement present (Psych) Assessment & Plan Assessment & Plan (1) Bile salt-induced diarrhea: Code(s): K90.89 - Other intestinal malabsorption Plan: She had several surgeries for hyst and bladder sling. This was at [facility]. Since she has copious diarrhea 10-15 times a day with varying consistencies and color, some black but some bile yellow and green. She has pain in the bilateral lower abdomen like menses cramps that are 10/10 and relieved a while after BM, and soreness around the umbilicus. She also has pain in the upper mid stomach with eating that is better with donnatol. The diarrhea smells like something and is different than she has ever had, she is concerned re: Internal bleeding. She says that she has been losing weight. Has upcoming surgery with Dr. Perkins for paraumbilcal/ventral hernia end of november ? . Had umbilical cellulits and abx. Will check for c diff etc, FIT, CBC. Filling donnatol, she did not have success with carafate and cholestyramine. She has not been taking anything for GERD. ROV 2 weeks. (2) GERD (gastroesophageal reflux disease): Code(s): K21.9 - Gastro-esophageal reflux disease without esophagitis (3) Dysphagia: Code(s): R13.10 - Dysphagia, unspecified (4) Acute diarrhea: Code(s): R19.7 - Diarrhea, unspecified Orders: Orders GI Panel 11/01/22 R19.7 - Diarrhea, unspecified CDiff Gene PCR 11/01/22 R19.7 - Diarrhea, unspecified FITS 11/02/22 R19.7 - Diarrhea, unspecified Complete Blood Count Auto Diff 11/01/22 R19.7 - Diarrhea, unspecified Medications: Refilled uhazxqkbt-osomrz-elxqrkgy-scop 16.2-0.1037 -0.0194 mg () 1 tab PO BID PRN 60 tabs 3RF indigestion R10.0 - Acute abdomen Coding Level of Care Code Est Pt Level 4 (30920) Diagnoses Bile salt-induced diarrhea K90.89 GERD (gastroesophageal reflux disease) K21.9 Dysphagia R13.10 Acute diarrhea R19.7
[2022-11-01 08:31] VITALS: BP 105/68; PULSE 111; BMI 34.4
== END 2022-11-01 09:15 | disposition home or self-care (01) ==
PROVIDERS: PCP Internal Medicine Geriatric Medicine; Visit Provider Nurse Practitioner
DX: K90.89 Other intestinal malabsorption (principal); K21.9 Gastro-esophageal reflux disease without esophagitis; R13.10 Dysphagia, unspecified; R19.7 Diarrhea, unspecified
CPT/HCPCS: 99214

== ENCOUNTER 2022-11-01 08:21 | Outpatient (REF) | payer MEDICARE, MEDICAID, SELFPAY ==
[2022-11-01 09:52] LABS: MANUAL DIFF FLAG NO
[2022-11-01 10:18] LABS: Basophils Absolute Auto 0.1 X10*3/uL (0.0-0.2); Basophils Percent Auto 0.6 % (0-2); Eosinophils Absolute Auto 0.3 X10*3/uL (0.0-0.4); Eosinophils Percent Auto 3.2 % (0-4); Hemoglobin 15.2 g/dl (12.0-16.0); Imm Gran Abs Auto 0.02 X10*3/uL (0.00-0.03); Imm Gran Pct Auto 0.2 % (0.0-0.4); Lymphocytes Absolute Auto 2.1 X10*3/uL (1.2-4.9); Lymphocytes Percent Auto 23.8 % (20-40); Mean Corpuscular HGB Conc 31.7 g/dl (31.0-35.0); Mean Corpuscular Hemoglobin 28.8 pg (27.0-33.0); Mean Corpuscular Volume 91.1 fL (80.0-98.0); Mean Platelet Volume 10.2 fL (9.4-12.3); Monocytes Absolute Auto 0.9 X10*3/uL (0.1-1.2); Monocytes Percent Auto 10.6 % (2-11); Neutrophils Absolute Auto 5.5 x10*3/uL (2.0-8.3); Neutrophils Percent Auto 61.6 % (45-73); Platelet Count 301 X10*3/uL (160-400); Red Blood Count 5.27 X10*6/uL (4.20-5.50); Red Cell Distribution Width 14.6 % (11.0-16.0); White Blood Count 8.9 X10*3/uL (4.8-10.8)
[2022-11-01 14:12] LABS: CDiff Gene PCR NEGATIVE (Negative)
[2022-11-01 14:24] LABS: Adenovirus F 40/41 Not Detected (Not Detect.); Astrovirus Not Detected (Not Detect.); Campylobacter Not Detected (Not Detect.); Cryptosporidium Not Detected (Not Detect.); Cyclospora cayetanensis Not Detected (Not Detect.); E. coli EAEC Not Detected (Not Detect.); E. coli EPEC Not Detected (Not Detect.); E. coli ETEC Not Detected (Not Detect.); E. coli STEC Not Detected (Not Detect.); Entamoeba histolytica Not Detected (Not Detect.); Giardia lamblia Not Detected (Not Detect.); Norovirus GI/GII Not Detected (Not Detect.); Plesiomonas shigelloides Not Detected (Not Detect.); Rotavirus A Not Detected (Not Detect.); Salmonella Not Detected (Not Detect.); Sapovirus Not Detected (Not Detect.); Shigella sp./EIEC Not Detected (Not Detect.); Vibrio Not Detected (Not Detect.); Vibrio Cholerae Not Detected (Not Detect.); Yersinia enterocolitica Not Detected (Not Detect.)
== END 2022-11-01 08:22 | disposition home or self-care (01) ==
LOC: HO.LAB 08:21
PROVIDERS: PCP Internal Medicine Geriatric Medicine; Visit Provider Nurse Practitioner
DX: K90.89 Other intestinal malabsorption (principal); K21.9 Gastro-esophageal reflux disease without esophagitis; R13.10 Dysphagia, unspecified; R19.7 Diarrhea, unspecified
CPT/HCPCS: 36415; 85025; 87493; 87507; 99212

== ENCOUNTER 2022-11-02 16:12 | Outpatient (REF) | payer MEDICARE, MEDICAID, SELFPAY ==
[2022-11-02 17:01] LABS: FIT Int Ctl YES
[2022-11-02 17:16] LABS: FIT1 POSITIVE (NEGATIVE); FIT2 POSITIVE (NEGATIVE)
== END 2022-11-02 16:13 | disposition home or self-care (01) ==
LOC: HO.LNP 16:12
PROVIDERS: Visit Provider Nurse Practitioner
DX: R19.7 Diarrhea, unspecified (principal)
CPT/HCPCS: 82274

== ENCOUNTER 2022-11-14 11:06 | Outpatient (AMB) | payer MEDICARE, MEDICAID, SELFPAY ==
--- NOTE | 2022-11-14 11:10 | MHC.OFFVIS ---
Intake Vital Signs 11/14/22 11:23 Height 5 ft 6 in Weight 216 lb 4 oz BMI 34.9 BP 131/78 Blood Pressure Location Lt brachial Position Sitting Pulse 94 Intake Visit Reasons: re-evaluation, surgery 12/11/22 Intake Note: Patient is seen in office for follow up visit, re-evaluate for upcoming surgical procedure. Patient c/o: admits to severe diarrhea that lasted 14 days, loss 6 pounds, diarrhea re-started on Sunday, tender and pain around the belly button, nausea, heartburn, those have IBS Equipment Superintendent Required: No Accompanied by: Self / Same As Patient Allergies sertraline [From ZOLOFT] Allergy (Severe, Verified 11/14/22 11:23) GI UPSET/LETHARGY/CONFUSION atorvastatin [ATORVASTATIN] Allergy (Intermediate, Verified 11/14/22 11:23) SEVER MUSCLE/FOOT PAIN oxycodone [OXYCODONE] Allergy (Intermediate, Verified 11/14/22 11:23) GI UPSET,CONFUSION cefaclor [From Ceclor] Allergy (Mild, Verified 11/14/22 11:23) DYSPNEA Penicillins Allergy (Mild, Verified 11/14/22 11:23) DYSPNEA vancomycin [Vancomycin] Allergy (Mild, Verified 11/14/22 11:23) ITCHING acetaminophen [Tylenol-Codeine #3] Allergy (Unknown, Verified 11/14/22 11:23) Unknown penicillin V Allergy (Unknown, Verified 11/14/22 11:23) unknown Medication List - Last Reconciled 11/14/22 by Sp Dubois MD albuterol sulfate 90 mcg/actuation inhalation PRN cyanocobalamin (vitamin B-12) 1,000 mcg IM fluticasone propionate 110 mcg/actuation (Flovent HFA) inhalation hydrocodone-acetaminophen 5-300 mg 1 tab PO BID PRN ibuprofen 800 mg PO TID levothyroxine 50 mcg PO DAILY mometasone 0.1% appl topical DAILY multivitamin 1 tab PO DAILY naloxone 4 mg/actuation 0 sprays intranasal paroxetine HCl 10 mg PO DAILY hztznjwpd-miftqt-alkybukk-scop 16.2-0.1037 -0.0194 mg () 1 tab PO BID PRN polyethylene glycol 3350 17 grams PO DAILY HPI HPI Comments History of Present Illness Details 61-year-old female patient returning for re-evaluation of her periumbilical hernia. She was previously evaluated on 10/05/2022 for similar complaint. She presented with complaints of abdominal pain in a periumbilical location with a palpable lump. This has developed over the last several months and seems to be increasing in size. The patient has had multiple abdominal surgeries including several Caesarean sections, hysterectomy, and open cholecystectomy. She was subsequently evaluated by CT abdomen and pelvis which confirmed a 2.5 cm ventral hernia/incisional hernia above the umbilicus. She denies nausea, vomiting, fever, or chills. She reports having increased discomfort from her IBS and has had frequent diarrhea for which she is seeing Luna Swartz. She is mainly having pain below the umbilicus extending to the left lower quadrant. [facility] Medical History Female bladder prolapse B12 deficiency Depression Hyperlipidemia Osteopenia Personal history of nicotine dependence Obesity Thyroid nodule Hypothyroidism (~2014) Surgical History History of partial hysterectomy (05/2022) History of colonoscopy History of foot surgery Hx of mammogram Hx of cholecystectomy Hx of tonsillectomy History of esophagogastroduodenoscopy (EGD) Family History Father Heart disease Mother Cardiomyopathy Goiter Maternal Grandfather Stomach cancer Social History Alcohol intake: current Alcohol intake frequency: a few times a month Patient Tobacco Use Status: Current everyday Tobacco user Tobacco use type: Cigarette Cigarettes Per Day: 30 Years Smoked: 40 - onset 22, 1.5-2ppd x 38yrs, 60+PYH Review of Systems Const All systems reviewed & are unremarkable except as noted in HPI and below Denies chills, Denies fever(s), Denies headache(s), Denies poor appetite and Denies weakness ENT Denies headache(s) Card Denies chest pain, Denies irregular heart rhythm, Denies palpitations and Denies dyspnea Resp Denies cough, Denies excessive phlegm production and Denies dyspnea GI Reports abdominal pain, Denies bloating, Denies change in bowel habits, Denies constipation, Reports heartburn, Denies diarrhea, Denies nausea and Denies vomiting Denies urinary frequency Musc Denies back pain, Denies muscle weakness and Denies numbness Skin/Breast Denies changing lesions and Denies unusual bruising Neuro Denies headache(s), Denies numbness, Denies paresthesias and Denies weakness Psych Denies anxiety and Denies depression Endo Denies palpitations Romel/Lymph Denies lymphadenopathy Physical Exam Vital Signs: Last Vital Signs Pulse 94 11/14/22 11:23 BP 131/78 11/14/22 11:23 BMI result Body Mass Index 34.9 Const General: cooperative and no acute distress Nutritional Appearance: well nourished Orientation/consciousness: patient oriented x3 Limitations: no limitations and ambulation with cane HEENT Head: Yes normocephalic and Yes atraumatic Ears: hearing grossly normal bilaterally Neck Neck: Yes normal visual inspection Resp Effort & Inspection: normal respiratory effort, no audible wheezes, no cough and no respiratory distress Cardio Jugular venous distension: no JVD GI Other: Palpable tenderness noted in the left lower quadrant extending from the midline to the midclavicular line. No distended non reducible hernia is identified at this time. Skin is slightly red from the folds of skin but no evidence of hernia incarceration at this time. Inspection: Yes normal to inspection and Yes obesity Palpation (GI): Soft to palpation, nontender, no guarding and not rigid Abdomen image: 1. Area of discomfort left lower quadrant Skin Other: Warm, dry, no rash Redundant abdominal skin Neuro General: patient oriented x3 Extrem General: Yes no clubbing, cyanosis or edema Assessment & Plan Assessment & Plan (1) Incisional hernia without obstruction or gangrene: Code(s): K43.2 - Incisional hernia without obstruction or gangrene Plan 61-year-old female patient presenting with a probable incisional hernia located above the umbilicus confirmed by CT abdomen and pelvis. On examination there is a palpable lump located just above the umbilicus measuring approximately 3.5 cm in diameter. The lump increases in size with Valsalva maneuvers and reduces with light pressure. Findings are consistent with an incisional hernia. I recommended repair of this incisional hernia with mesh on elective basis. After discussion of the procedure, risks, and alternatives, he consents to the repair of the incisional hernia with mesh. Her surgery is currently scheduled on 12/11/2022. Coding Level of Care Code Est Pt Level 3 (12530) Diagnoses Incisional hernia without obstruction or gangrene K43.2
[2022-11-14 11:23] VITALS: BP 131/78; PULSE 94; BMI 34.9
== END 2022-11-14 11:32 | disposition home or self-care (01) ==
PROVIDERS: PCP Internal Medicine Geriatric Medicine; Visit Provider Surgery
DX: K43.2 Incisional hernia without obstruction or gangrene (principal)
CPT/HCPCS: 99213

== ENCOUNTER → 2022-11-14 11:06 | Outpatient (BNVA) | payer MEDICARE, MEDICAID, SELFPAY | PROVIDERS: PCP Internal Medicine Geriatric Medicine; Visit Provider Surgery | DX: K43.2 Incisional hernia without obstruction or gangrene (principal) | CPT/HCPCS: 99212 ==

== ENCOUNTER 2022-12-01 11:36 | Outpatient (AMB) | payer MEDICARE, MEDICAID, SELFPAY ==
--- NOTE | 2022-12-01 11:40 | MHC.OFFVIS ---
Intake Vital Signs 12/01/22 11:43 Height 5 ft 6 in Weight 218 lb 11.177 oz BMI 35.3 BP 130/73 Blood Pressure Location Lt brachial Position Sitting Pulse 82 Intake Visit Reasons: follow up Intake Note: Patient returns to in office visit today in follow up of labs and abdominal pain. CC: Patient reports that by November 14 her symptoms subsided and now the symptoms are starting to bother again . She state that she could not get her and Dr. Martell prescribed Phenohytro. Managed Services Consultant Required: No Accompanied by: Self / Same As Patient Allergies sertraline [From ZOLOFT] Allergy (Severe, Verified 01/02/23 08:54) GI UPSET/LETHARGY/CONFUSION atorvastatin [ATORVASTATIN] Allergy (Intermediate, Verified 01/02/23 08:54) SEVER MUSCLE/FOOT PAIN oxycodone [OXYCODONE] Allergy (Intermediate, Verified 01/02/23 08:54) GI UPSET,CONFUSION cefaclor [From Ceclor] Allergy (Mild, Verified 01/02/23 08:54) DYSPNEA Penicillins Allergy (Mild, Verified 01/02/23 08:54) DYSPNEA vancomycin [Vancomycin] Allergy (Mild, Verified 01/02/23 08:54) ITCHING acetaminophen [Tylenol-Codeine #3] Allergy (Unknown, Verified 01/02/23 08:54) Unknown penicillin V Allergy (Unknown, Verified 01/02/23 08:54) unknown Medication List - Last Reconciled 12/01/22 by BARBIE Thomas albuterol sulfate 90 mcg/actuation inhalation PRN cyanocobalamin (vitamin B-12) 1,000 mcg IM dicyclomine 20 mg PO QID 90 days fluticasone propionate 110 mcg/actuation (Flovent HFA) inhalation hydrocodone-acetaminophen 5-300 mg 1 tab PO BID PRN levothyroxine 50 mcg PO DAILY mometasone 0.1% appl topical DAILY naloxone 4 mg/actuation 0 sprays intranasal paroxetine HCl 10 mg PO DAILY nyvuqcwfi-xbhqmo-flfktsjn-scop 16.2-0.1037 -0.0194 mg (Phenohytro) 1 tab PO TID polyethylene glycol 3350 17 grams PO DAILY HPI follow up HPI Details .Assessment & Plan (1) Bile salt-induced diarrhea: Code(s): K90.89 - Other intestinal malabsorption Plan: She had several surgeries for hyst and bladder sling. This was at [facility]. Since she has copious diarrhea 10-15 times a day with varying consistencies and color, some black but some bile yellow and green. She has pain in the bilateral lower abdomen like menses cramps that are 10/10 and relieved a while after BM, and soreness around the umbilicus. She also has pain in the upper mid stomach with eating that is better with donnatol. The diarrhea smells like something and is different than she has ever had, she is concerned re: Internal bleeding. She says that she has been losing weight. Has upcoming surgery with Dr. Perkins for paraumbilcal/ventral hernia end of november ? . Had umbilical cellulits and abx. Will check for c diff etc, FIT, CBC. Filling donnatol, she did not have success with carafate and cholestyramine. She has not been taking anything for GERD. ROV 2 weeks. (2) GERD (gastroesophageal reflux disease): Code(s): K21.9 - Gastro-esophageal reflux disease without esophagitis (3) Dysphagia: Code(s): R13.10 - Dysphagia, unspecified (4) Acute diarrhea: Code(s): R19.7 - Diarrhea, unspecified Orders: Orders GI Panel 11/01/22 R19.7 - Diarrhea, unspecified CDiff Gene PCR 11/01/22 R19.7 - Diarrhea, unspecified FITS 11/02/22 R19.7 - Diarrhea, unspecified Complete Blood Count Auto Diff 11/01/22 R19.7 - Diarrhea, unspecified Medications: Refilled ijswlhpfj-cgqxhb-buurrauq-scop 16.2-0.1037 -0.0194 mg () 1 tab PO BID PRN 60 tabs 3RF indigestion R10.0 - Acute abdomen CORRESPONDENCE On 11/07/22 @ 07:43 Luna Swartz Wrote To MaximeLuna Please keep me posted on PA progress and advise pt of our efforts. On 11/06/22 @ 16:49 Dameon Mahmood Wrote To MaximeLuna It is for RODERICK Call started. On 11/01/22 @ 16:13 MaximeLuna Wrote To Dameon Mahmood V can you call and find out which prescription On 11/01/22 @ 11:16 Isabell Tamayo Wrote To MaximeMay Tenisha called she said the prescription you ordered is not covered by her insurance is there an alternative you can order for her instead. Thank you TODAY'S VISIT It seems that her primary care was able to get the covered under a different name of pheno- hydro. BUT she needs to take 3 a day but she can 't afford it because she has to pay $23 for 21 pills. Her diarrhea continues and she has been the BR as much as 15 times. She has not find the dicyclomine helpful so we will discontinue it. She did not tolerate the Carafate and also was not very effective. Will try cholestyramine instead, get a CRP, fecal calprotectin, and a RAST allergen panel to see if we can uncover some reversible cause of her severe diarrhea. She is requesting to see 1 of the physicians for another look and I will certainly accommodate her by referring her up. She is welcome to return to my service if desired. [facility] Medical History Female bladder prolapse B12 deficiency Depression Hyperlipidemia Osteopenia Personal history of nicotine dependence Obesity Thyroid nodule Hypothyroidism (~2014) Surgical History History of incisional hernia repair (12/11/22) Previous section Hx of laparoscopy History of partial hysterectomy (05/2022) History of colonoscopy History of foot surgery Hx of mammogram Hx of cholecystectomy Hx of tonsillectomy History of esophagogastroduodenoscopy (EGD) Family History Father Heart disease Mother Cardiomyopathy Goiter Maternal Grandfather Stomach cancer Social History Alcohol intake: current Alcohol intake frequency: holidays/special occasions only Patient Tobacco Use Status: Current everyday Tobacco user Tobacco use type: Cigarette Cigarettes Per Day: 10 Years Smoked: 40 - onset 22, 1.5-2ppd x 40yrs, 60+PYH Review of Systems Const Denies fatigue, Denies fever(s), Denies night sweats, Denies poor appetite and Denies weight loss ENT Reports Normal hearing present, Denies dental pain, Denies dysphagia, Denies hearing loss, Denies mouth pain, Denies odynophagia, Denies throat swelling, Denies tongue swelling and Reports other (Dentition adequate) Card Reports no additional complaints Resp Reports no additional complaints GI Denies abdominal pain, Denies melena, Reports bloating, Denies hematochezia, Denies constipation, Reports GI cramping, Denies dysphagia, Denies excessive flatus, Denies early satiety, Reports heartburn, Reports diarrhea, Denies nausea, Denies odynophagia, Denies vomiting and Denies hematemesis Skin/Breast Denies pruritus, Denies lesions, Denies rash and Denies jaundice Neuro Reports Normal hearing present and Denies Abnormal speech present Endo Denies fatigue Aller/Immun Denies throat swelling and Denies tongue swelling Physical Exam Vital Signs: Last Vital Signs Pulse 82 12/01/22 11:43 BP 130/73 12/01/22 11:43 BMI result Body Mass Index 35.3 Const General: cooperative, no acute distress, well developed and well groomed Nutritional Appearance: well nourished and obese Orientation/consciousness: oriented to person, oriented to place and oriented to time Limitations: No language barrier and ambulation with cane HEENT Head: Yes normocephalic and Yes atraumatic Eyes General: appearance normal, both eyes and all related structures Pupils: Equal, round and reactive pupils present Neck Neck: Yes normal visual inspection and Yes no lymphadenopathy Thyroid: Thyroid normal Resp Effort & Inspection: normal respiratory effort and able to speak in complete sentences Auscultation: clear to auscultation bilaterally Cardio Rate: regular rate Rhythm: regular rhythm Heart sounds: Normal, physiologic split S2 sound present Peripheral pulses: radial pulses present and posterior tibial pulses present GI Inspection: No distended, Yes Abdominal panniculus present and Yes obesity Palpation (GI): Soft to palpation, nontender, no guarding, not rigid and No hepatosplenomegaly present Percussion: Yes normal to percussion Auscultation: normal bowel sounds Rectal Exam - Female: deferred Skin General skin exam: no rashes or lesions noted, turgor normal, skin not dry, no jaundice, No spider nevi and no striae Rashes: no rashes Nails: normal Neuro General: oriented to person, oriented to place and oriented to time Cranial nerves: Yes Equal, round and reactive pupils present and Yes Normal hearing present Speech: No Abnormal speech present Extrem General: Yes normal to inspection, No clubbing, No cyanosis and No edema Psych Appearance: grossly normal and well kempt Mental Status: mental status grossly normal Speech and movement: Normal speech and movement present Affect: normal affect Attitude: cooperative Thought process: Normal thought process present and not confabulating Thought content: Normal thought content present Insight: Poor insight present (Psych) Judgement: Poor judgement present (Psych) Assessment & Plan Assessment & Plan (1) Bile salt-induced diarrhea: Code(s): K90.89 - Other intestinal malabsorption Plan: It seems that her primary care was able to get the covered under a different name of pheno- hydro. BUT she needs to take 3 a day but she can 't afford it because she has to pay $23 for 21 pills. Her diarrhea continues and she has been the BR as much as 15 times. She has not find the dicyclomine helpful so we will discontinue it. She did not tolerate the Carafate and also was not very effective. Will try cholestyramine instead, get a CRP, fecal calprotectin, and a RAST allergen panel to see if we can uncover some reversible cause of her severe diarrhea. She is requesting to see 1 of the physicians for another look and I will certainly accommodate her by referring her up. She is welcome to return to my service if desired. (2) GERD (gastroesophageal reflux disease): Code(s): K21.9 - Gastro-esophageal reflux disease without esophagitis (3) Acute diarrhea: Code(s): R19.7 - Diarrhea, unspecified Orders: Orders C Reactive Protein 12/01/22 R19.7 - Diarrhea, unspecified Calprotectin, Fecal 12/01/22 R19.7 - Diarrhea, unspecified Rast Allergen 12/01/22 R19.7 - Diarrhea, unspecified Medications: New cholestyramine-aspartame 4 gram (Cholestyramine Light) administer w/meal; 4 grams PO BID 60 ea 6RF K90.89 - Other intestinal malabsorption Discontinued dicyclomine Discontinued Reason: Doctor's Order 20 mg PO QID 90 days 360 tabs 1RF Coding Level of Care Code Est Pt Level 3 (67511) Diagnoses Bile salt-induced diarrhea K90.89 GERD (gastroesophageal reflux disease) K21.9 Acute diarrhea R19.7
[2022-12-01 11:43] VITALS: BP 130/73; PULSE 82; BMI 35.3
== END 2022-12-01 12:30 | disposition home or self-care (01) ==
PROVIDERS: PCP Internal Medicine Geriatric Medicine; Visit Provider Nurse Practitioner
DX: K90.89 Other intestinal malabsorption (principal); K21.9 Gastro-esophageal reflux disease without esophagitis; R19.7 Diarrhea, unspecified
CPT/HCPCS: 99213

== ENCOUNTER → 2022-12-01 11:36 | Outpatient (BNVA) | payer MEDICARE, MEDICAID, SELFPAY | PROVIDERS: PCP Internal Medicine Geriatric Medicine; Visit Provider Nurse Practitioner | DX: K90.89 Other intestinal malabsorption (principal); R19.7 Diarrhea, unspecified; K21.9 Gastro-esophageal reflux disease without esophagitis | CPT/HCPCS: 99212 ==

== ENCOUNTER 2022-12-11 06:07 | Day surgery (SDC) | payer MEDICARE, MEDICAID, SELFPAY ==
[2022-12-07 07:27] VITALS: BMI 34.9
--- NOTE | 2022-12-10 18:46 | HO.ANESPROP2 ---
HPI - Anesthesia Eval Consult details Narrative: Incisional hernia, 60PKYear history pof smoking PMFSH Active Problems Active Problems: All Active Problems (Updated 12/01/22 @ 12:19 by BARBIE Thomas) Irritable bowel syndrome with diarrhea (Acute) Acute diarrhea (Acute) Incisional hernia without obstruction or gangrene (Acute) Umbilical hernia (Acute) Personal history of nicotine dependence (Acute) Obesity (Acute) Thyroid nodule (Acute) Hypothyroidism (Acute ~2015) Dysphagia (Acute) GERD (gastroesophageal reflux disease) (Acute) Bile salt-induced diarrhea (Acute) Past Medical History Medical History Female bladder prolapse B12 deficiency Depression Hyperlipidemia Osteopenia Personal history of nicotine dependence Obesity Thyroid nodule Hypothyroidism (~2014) Family History Family History Father Heart disease Mother Cardiomyopathy Goiter Maternal Grandfather Stomach cancer Family history of problems with anesthesia: No Surgical History Surgical History History of partial hysterectomy (05/2022) History of colonoscopy History of foot surgery Hx of mammogram Hx of cholecystectomy Hx of tonsillectomy History of esophagogastroduodenoscopy (EGD) History of Problems with Anesthesia: No Social History Social History Alcohol intake: current Alcohol intake frequency: a few times a month Patient Tobacco Use Status: Current everyday Tobacco user Tobacco use type: Cigarette Cigarettes Per Day: 30 Years Smoked: 40 - onset 22, 1.5-2ppd x 40yrs, 60+PYH Meds Allergies Allergy/AdvReac Type Severity Reaction Status Date / Time sertraline [From ZOLOFT] Allergy Severe GI Verified 11/14/22 11:23 UPSET/LETHARGY/CONFUSION atorvastatin [ATORVASTATIN] Allergy Intermediate SEVER Verified 11/14/22 11:23 MUSCLE/FOOT PAIN oxycodone [OXYCODONE] Allergy Intermediate GI Verified 11/14/22 11:23 UPSET,CONFUSION cefaclor [From Ceclor] Allergy Mild DYSPNEA Verified 11/14/22 11:23 Penicillins Allergy Mild DYSPNEA Verified 11/14/22 11:23 vancomycin [Vancomycin] Allergy Mild ITCHING Verified 11/14/22 11:23 acetaminophen Allergy Unknown Unknown Verified 11/14/22 11:23 [Tylenol-Codeine #3] penicillin V Allergy Unknown unknown Verified 11/14/22 11:23 Home Medications Medication Instructions Recorded Confirmed Last Taken Type albuterol sulfate 90 mcg/actuation inhalation PRN 03/31/20 12/01/22 Unknown History aerosol inhaler cyanocobalamin (vitamin B-12) 1,000 mcg IM 03/31/20 12/01/22 Unknown History 1,000 mcg/mL injection solution mometasone 0.1 % topical cream appl topical DAILY 03/31/20 12/01/22 Unknown History paroxetine HCl 10 mg tablet 10 mg PO DAILY 03/31/20 12/01/22 Unknown History polyethylene glycol 3350 17 17 g PO DAILY 03/31/20 11/14/22 Unknown History gram/dose oral powder levothyroxine 50 mcg tablet 50 mcg PO DAILY 06/14/20 12/01/22 Unknown History naloxone 4 mg/actuation nasal spray 0 spray intranasal 04/04/22 12/01/22 Unknown History hydrocodone 5 mg-acetaminophen 300 1 tab PO BID PRN 10/05/22 12/01/22 Unknown History mg tablet fluticasone propionate 110 inhalation 11/01/22 12/01/22 Unknown History mcg/actuation HFA aerosol inhaler (Flovent HFA) xljlxykpv-trqbmfhwb-ofhwfxvy-scop 1 tab PO TID 12/01/22 12/01/22 Unknown History 16.2 mg-0.1037 mg-0.0194 mg tablet (Phenohytro) Exam Exam Date and Time: December 10, 2022 1846 Height,Weight and Vital Signs: Height 5 ft 6 in Weight 97.976 kg Airway Mallampati Class: II Heart: rrr Lungs: bilat wheezing Assessment and Plan Assessment Anesthesia Assessment: Anesthesia Plan Discussed, Smoking Cess. Discussed and Chart Reviewed Final Anesthetic Review Family History of Problems with Anesthesia: No History of Problems with Anesthesia: No NPO: Yes ASA Class: III Final Preanesthetic Review: No Changes in Pt Med Stat, Consent Obtained/Reviewed and Anes Risks/Benef Reviewed Patient Risk: High Procedure Risk: Intermediate Anesthetic Plan Anesthetic Plan: GA Disposition: Standard PACU
[2022-12-11] VITALS (12 sets, daily range): BP systolic 111–134; BP diastolic 67–89; PULSE 69–87; RESP 16–20; TEMP 36.4–37.2; O2SAT 94–99
[2022-12-11] MEDS: Lactated Ringers 1,000 ML 100 ML IVCONT (06:53)
--- NOTE | 2022-12-11 07:19 | MHC.SHP ---
Pre-Procedural Eval Section A Date of Service: 12/11/22 The patient is an INPATIENT: No Changes since office visit: Yes Patient answered all questions; No Cold of Flu in the past 2 weeks, No New Medical Problems and No Changes in Medication The History & Physical has been completed within 30 days and I have reviewed it.: Yes Section B Chief Complaint: Umbilical hernia without obstruction or gangrene Allergies: Allergies Allergy/AdvReac Type Severity Reaction Status Date / Time sertraline [From ZOLOFT] Allergy Severe GI Verified 11/14/22 11:23 UPSET/LETHARGY/CONFUSION atorvastatin [ATORVASTATIN] Allergy Intermediate SEVER Verified 11/14/22 11:23 MUSCLE/FOOT PAIN oxycodone [OXYCODONE] Allergy Intermediate GI Verified 11/14/22 11:23 UPSET,CONFUSION cefaclor [From Ceclor] Allergy Mild DYSPNEA Verified 11/14/22 11:23 Penicillins Allergy Mild DYSPNEA Verified 11/14/22 11:23 vancomycin [Vancomycin] Allergy Mild ITCHING Verified 11/14/22 11:23 acetaminophen Allergy Unknown Unknown Verified 11/14/22 11:23 [Tylenol-Codeine #3] penicillin V Allergy Unknown unknown Verified 11/14/22 11:23 Plan Diagnosis/Plan: Unchanged I have reviewed the history and physical and performed a pertinent physical examination on my patient. No changes have occurred unless specified. Time Spent With Patient Time: Total time managing care of this patient today ____ minutes.
--- NOTE | 2022-12-11 07:38 | W.PM.OPN ---
Operative Note Operative Note Date of Service: 12/11/22 Narrative: Preoperative diagnosis:Incisional Hernia Postoperative diagnosis:same Procedure:Repair of incisional hernia with mesh Surgeon: Sp Dubois MD Associate Spa Director: Leola Chan PA-C Anesthesia: general LMA Indications for procedure: 61-year-old female patient presenting with a large upper abdominal incisional hernia located at the periumbilical location extending to the right. Operative findings: 5 cm fascial defect located just above the umbilicus repaired with an 8 cm round Ventralex mesh Specimen: none Estimated blood loss: 10 mL Complications: none Procedure details: patient was brought to the OR placed in a supine position. After administering general anesthesia patient's abdomen was prepped with ChloraPrep and draped in a sterile fashion. A surgical time-out was called the consent confirmed. Patient received preoperative antibiotics and Venodyne boots were in place. Local anesthesia was infiltrated in the midline extending around the umbilicus. Incision was then made with a scalpel carried out through subcutaneous tissue up to the hernia sac. A large hernia sac was identified measuring at least 10 cm in diameter. This was dissected down to the fascia the circumferentially. Fascial defect measured approximately 5 cm in diameter. The fascial defect was further defined circumferentially and the hernia reduced into the peritoneal space. A preperitoneal space was further dissected using combination of blunt and electrocautery dissection. An 8 cm round Ventralex mesh was then obtained. This was then deployed within the preperitoneal space. The peritoneum was not entered at any point during the procedure. Mesh was then secured in 4 quadrants using a 1 Tycron suture. Bleeding was controlled using electrocautery and suture ligature of 3-0 Polysorb. Fascia was then closed over the mesh using [id number] 1 Tycron sutures. Wounds were then irrigated with saline solution and suctioned dry. Additional local was infiltrated into the fascia and subcutaneous tissue. Umbilical skin was then attached to the fascia using a 3-0 Polysorb suture. Deep subcutaneous tissue and dermis were then reapproximated using interrupted 3-0 Polysorb sutures. Skin was closed using a running subcuticular 4-0 Polysorb suture. Steri-Strips, 2 x 2 gauze and Tegaderm were then applied. The patient tolerated the procedure well. Sponge, instrument, needle counts reported as correct. Patient was transferred to PACU in stable condition.
[2022-12-11] MEDS: fentaNYL citrate/PF 100 MCG/2 ML VIAL 25 MCG IVPUSH ×2 (09:30→09:44)
[2022-12-11] MEDS: HYDROcodone Bit/Acetam 5/325 TABLET 1 TAB PO (10:17)
== END 2022-12-11 11:59 | disposition home or self-care (01) ==
PROVIDERS: PCP Internal Medicine Geriatric Medicine; Visit Provider Surgery
PROC: (CPT 49593; principal; 2022-12-11 07:30)
DX: K43.2 Incisional hernia without obstruction or gangrene (principal); E78.5 Hyperlipidemia, unspecified; N81.10 Cystocele, unspecified; E03.9 Hypothyroidism, unspecified; E66.9 Obesity, unspecified; Z68.34 Body mass index [BMI] 34.0-34.9, adult; K58.9 Irritable bowel syndrome, unspecified; Z79.51 Long term (current) use of inhaled steroids; Z79.1 Long term (current) use of non-steroidal anti-inflammatories (NSAID); Z79.899 Other long term (current) drug therapy; Z88.0 Allergy status to penicillin; Z88.1 Allergy status to other antibiotic agents; Z88.8 Allergy status to other drugs, medicaments and biological substances; F17.210 Nicotine dependence, cigarettes, uncomplicated; Z98.890 Other specified postprocedural states
CPT/HCPCS: 49593; C1781; C9088; J1170; J1956; J2371; J2405; J2795; J3010

== ENCOUNTER → 2022-12-11 06:07 | Outpatient (BNV) | payer MEDICARE, MEDICAID, SELFPAY | PROVIDERS: PCP Internal Medicine Geriatric Medicine; Visit Provider Surgery | DX: K43.2 Incisional hernia without obstruction or gangrene (principal) | CPT/HCPCS: 49593 ==

== ENCOUNTER 2022-12-21 08:52 | Outpatient (AMB) | payer MEDICARE, MEDICAID, SELFPAY ==
--- NOTE | 2022-12-21 08:55 | A.OFFVIS_ITS ---
Intake Vital Signs 12/21/22 09:05 Height 5 ft 6 in Weight 214 lb BMI 34.5 BP 127/80 Blood Pressure Location Lt brachial Position Sitting Pulse 113 H Intake Visit Reasons: S/P incisional hernia w/mesh Intake Note: Patient is seen in office for post op assessment post incisional hernia repair. 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 Accompanied by: Self / Same As Patient Allergies sertraline [From ZOLOFT] Allergy (Severe, Verified 12/21/22 08:56) GI UPSET/LETHARGY/CONFUSION atorvastatin [ATORVASTATIN] Allergy (Intermediate, Verified 12/21/22 08:56) SEVER MUSCLE/FOOT PAIN oxycodone [OXYCODONE] Allergy (Intermediate, Verified 12/21/22 08:56) GI UPSET,CONFUSION cefaclor [From Ceclor] Allergy (Mild, Verified 12/21/22 08:56) DYSPNEA Penicillins Allergy (Mild, Verified 12/21/22 08:56) DYSPNEA vancomycin [Vancomycin] Allergy (Mild, Verified 12/21/22 08:56) ITCHING acetaminophen [Tylenol-Codeine #3] Allergy (Unknown, Verified 12/21/22 08:56) Unknown penicillin V Allergy (Unknown, Verified 12/21/22 08:56) unknown HPI HPI Comments History of Present Illness Details Patient returns 1 week following repair of a mid abdominal incisional hernia on 12/11/2022. She developed an oral thrush and started taking nystatin swish yesterday. She continues to have some burning the mouth. Reports some mild discomfort in the incision but generally feels well. She continues to wear the abdominal binder as recommended. She denies nausea, vomiting, fever or chills. [facility] Medical History (Updated 12/18/22 @ 10:35 by Sp Dubios MD) Female bladder prolapse B12 deficiency Depression Hyperlipidemia Osteopenia Personal history of nicotine dependence Obesity Thyroid nodule Hypothyroidism (~2014) Surgical History (Updated 12/20/22 @ 09:47 by DARON Hamm) History of incisional hernia repair (12/11/22) Previous section Hx of laparoscopy History of partial hysterectomy (05/2022) History of colonoscopy History of foot surgery Hx of mammogram Hx of cholecystectomy Hx of tonsillectomy History of esophagogastroduodenoscopy (EGD) Family History Father Heart disease Mother Cardiomyopathy Goiter Maternal Grandfather Stomach cancer Social History Alcohol intake: current Alcohol intake frequency: holidays/special occasions only Patient Tobacco Use Status: Current everyday Tobacco user Tobacco use type: Cigarette Cigarettes Per Day: 10 Years Smoked: 40 - onset 22, 1.5-2ppd x 40yrs, 60+PYH Physical Exam Const General: no acute distress Nutritional Appearance: obese Orientation/consciousness: patient oriented x3 Limitations: ambulation with cane Resp Effort & Inspection: normal respiratory effort GI Other: Intact midline incision without redness or discharge. Steri-Strips remain in place. Palpation (GI): Soft to palpation, nontender, no guarding and not rigid Skin Other: Warm, dry, no rash Neuro General: patient oriented x3 Extrem General: Yes edema Assessment & Plan Assessment & Plan (1) Oral candidiasis: Code(s): B37.0 - Candidal stomatitis (2) Incisional hernia without obstruction or gangrene: Code(s): K43.2 - Incisional hernia without obstruction or gangrene Plan Patient returns following repair of an incisional hernia with mesh. She received perioperative dose of antibiotics and now has oral thrush. She was started on nystatin yesterday and she continue this as prescribed for the next 7 days. She will follow-up in 3-4 weeks for follow-up examination. She should avoid any lifting greater than 10 lb. Ambulation is encouraged. Continue with abdominal binder. Medications: New nystatin administer 1/2 of dose in each side of the mouth, retain in mouth as long as possible 400,000 units (4 mL) PO QID 7 days 112 mL 0RF B37.0 - Candidal stomatitis Coding Level of Care Code Global (95654) Diagnoses Oral candidiasis B37.0 Incisional hernia without obstruction or gangrene K43.2
[2022-12-21 09:05] VITALS: BP 127/80; PULSE 113; BMI 34.5
== END 2022-12-21 09:24 | disposition home or self-care (01) ==
PROVIDERS: PCP Internal Medicine Geriatric Medicine; Visit Provider Surgery
DX: B37.0 Candidal stomatitis (principal); K43.2 Incisional hernia without obstruction or gangrene; Z09 Encounter for follow-up examination after completed treatment for conditions other than malignant neoplasm
CPT/HCPCS: 99214

== ENCOUNTER → 2022-12-21 08:52 | Outpatient (BNVA) | payer MEDICARE, MEDICAID, SELFPAY | PROVIDERS: PCP Internal Medicine Geriatric Medicine; Visit Provider Surgery | DX: B37.0 Candidal stomatitis (principal); K43.2 Incisional hernia without obstruction or gangrene | CPT/HCPCS: 99212 ==

== ENCOUNTER 2023-01-02 08:41 | Outpatient (AMB) | payer MEDICARE, MEDICAID, SELFPAY ==
--- NOTE | 2023-01-02 08:43 | A.OFFVIS_ITS ---
Intake Vital Signs 01/02/23 08:53 Height 5 ft 6 in Weight 213 lb 4 oz BMI 34.4 BP 127/74 Blood Pressure Location Lt brachial Position Sitting Pulse 113 H Intake Visit Reasons: Wound check Intake Note: Patient is seen in office for post op assessment post incisional hernia repair. 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 Accompanied by: Self / Same As Patient Allergies sertraline [From ZOLOFT] Allergy (Severe, Verified 01/02/23 08:54) GI UPSET/LETHARGY/CONFUSION atorvastatin [ATORVASTATIN] Allergy (Intermediate, Verified 01/02/23 08:54) SEVER MUSCLE/FOOT PAIN oxycodone [OXYCODONE] Allergy (Intermediate, Verified 01/02/23 08:54) GI UPSET,CONFUSION cefaclor [From Ceclor] Allergy (Mild, Verified 01/02/23 08:54) DYSPNEA Penicillins Allergy (Mild, Verified 01/02/23 08:54) DYSPNEA vancomycin [Vancomycin] Allergy (Mild, Verified 01/02/23 08:54) ITCHING acetaminophen [Tylenol-Codeine #3] Allergy (Unknown, Verified 01/02/23 08:54) Unknown penicillin V Allergy (Unknown, Verified 01/02/23 08:54) unknown HPI HPI Comments History of Present Illness Details 62-year-old female patient returning 3 w eeks following repair of a mid abdominal incisional hernia on 12/11/2022. She developed an oral thrush and started taking nystatin swish last week. Reports some mild discomfort in the incision but then was concerned about infection in the incision. She denies fever, chills, nausea or vomiting. Reports that the oral thrush is much improved and she is no longer taking the nystatin. [facility] Medical History Female bladder prolapse B12 deficiency Depression Hyperlipidemia Osteopenia Personal history of nicotine dependence Obesity Thyroid nodule Hypothyroidism (~2014) Surgical History History of incisional hernia repair (12/11/22) Previous section Hx of laparoscopy History of partial hysterectomy (05/2022) History of colonoscopy History of foot surgery Hx of mammogram Hx of cholecystectomy Hx of tonsillectomy History of esophagogastroduodenoscopy (EGD) Family History Father Heart disease Mother Cardiomyopathy Goiter Maternal Grandfather Stomach cancer Social History Alcohol intake: current Alcohol intake frequency: holidays/special occasions only Patient Tobacco Use Status: Current everyday Tobacco user Tobacco use type: Cigarette Cigarettes Per Day: 10 Years Smoked: 40 - onset 22, 1.5-2ppd x 40yrs, 60+PYH Physical Exam Const General: no acute distress Nutritional Appearance: obese Orientation/consciousness: patient oriented x3 Limitations: ambulation with cane Resp Effort & Inspection: normal respiratory effort GI Other: Intact midline incision without redness or discharge. Small stitch abscess may have been present previously but no active infection is noted at this time. No evidence of erythema or fluctuance. No hernia noted with Valsalva maneuvers. Palpation (GI): Soft to palpation, nontender, no guarding and not rigid Skin Other: Warm, dry, no rash Neuro General: patient oriented x3 Extrem General: Yes edema Assessment & Plan Assessment & Plan (1) Oral candidiasis: Code(s): B37.0 - Candidal stomatitis (2) Incisional hernia without obstruction or gangrene: Code(s): K43.2 - Incisional hernia without obstruction or gangrene Plan 62-year-old female patient returning 3 weeks following incisional hernia repair. She may have developed a small stitch abscess which has subsequently resolved. I recommended keeping the incision open and avoiding the abdominal binder at this time. She does not require antibiotics as there is no active infection at this time. She should continue to avoid lifting greater than [address] and bend but just avoid the lifting. She will return on 01/11/2023 for follow-up visit. Coding Level of Care Code Global (54240) Diagnoses Oral candidiasis B37.0 Incisional hernia without obstruction or gangrene K43.2
[2023-01-02 08:53] VITALS: BP 127/74; PULSE 113; BMI 34.4
== END 2023-01-02 08:55 | disposition home or self-care (01) ==
PROVIDERS: PCP Internal Medicine Geriatric Medicine; Visit Provider Surgery
DX: B37.0 Candidal stomatitis (principal); K43.2 Incisional hernia without obstruction or gangrene
CPT/HCPCS: 99212

== ENCOUNTER → 2023-01-02 08:41 | Outpatient (BNVA) | payer MEDICARE, MEDICAID, SELFPAY | PROVIDERS: PCP Internal Medicine Geriatric Medicine; Visit Provider Surgery | DX: Z48.815 Encounter for surgical aftercare following surgery on the digestive system (principal); B37.0 Candidal stomatitis; Z87.19 Personal history of other diseases of the digestive system | CPT/HCPCS: 99212 ==

== ENCOUNTER 2023-01-12 12:53 | Outpatient (AMB) | payer MEDICARE, MEDICAID, SELFPAY ==
--- NOTE | 2023-01-12 13:09 | A.OFFVIS_ITS ---
Intake Vital Signs 3 01/12/23 13:13 Height 5 ft 6 in Weight 214 lb BMI 34.5 BP 131/78 Blood Pressure Location Lt brachial Position Sitting Pulse 105 H Intake Visit Reasons: 3 wk follow up incisional hernia repair Intake Note: Patient is seen in office for 3wks follow up visit, post incisional hernia repair. 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 Accompanied by: Family/Other Allergies sertraline [From ZOLOFT] Allergy (Severe, Verified 01/12/23 13:12) GI UPSET/LETHARGY/CONFUSION atorvastatin [ATORVASTATIN] Allergy (Intermediate, Verified 01/12/23 13:12) SEVER MUSCLE/FOOT PAIN oxycodone [OXYCODONE] Allergy (Intermediate, Verified 01/12/23 13:12) GI UPSET,CONFUSION cefaclor [From Ceclor] Allergy (Mild, Verified 01/12/23 13:12) DYSPNEA Penicillins Allergy (Mild, Verified 01/12/23 13:12) DYSPNEA vancomycin [Vancomycin] Allergy (Mild, Verified 01/12/23 13:12) ITCHING acetaminophen [Tylenol-Codeine #3] Allergy (Unknown, Verified 01/12/23 13:12) Unknown penicillin V Allergy (Unknown, Verified 01/12/23 13:12) unknown HPI HPI Comments 2 History of Present Illness0 Details Patient returns and following repair of a ventral hernia above the umbilicus on 12/11/2022. Patient underwent a repair of 5 cm defect using an 8 cm round Ventralex mesh. She developed small amount of discharge from the incision presumably from a stitch abscess. She feels a lump to the right of the incision and is concerned about a hernia recurrence. [facility] Medical History Female bladder prolapse B12 deficiency Depression Hyperlipidemia Osteopenia Personal history of nicotine dependence Obesity Thyroid nodule Hypothyroidism (~2014) Surgical History History of incisional hernia repair (12/11/22) Previous section Hx of laparoscopy History of partial hysterectomy (05/2022) History of colonoscopy History of foot surgery Hx of mammogram Hx of cholecystectomy Hx of tonsillectomy History of esophagogastroduodenoscopy (EGD) Family History Father Heart disease Mother Cardiomyopathy Goiter Maternal Grandfather Stomach cancer Social History Alcohol intake: current Alcohol intake frequency: holidays/special occasions only Patient Tobacco Use Status: Current everyday Tobacco user Tobacco use type: Cigarette Cigarettes Per Day: 10 Years Smoked: 40 - onset 22, 1.5-2ppd x 38yrs, 60+PYH Physical Exam Vital Signs: Last Vital Signs Pulse 105 H 01/12/23 13:13 BP 131/78 01/12/23 13:13 BMI result Body Mass Index 34.5 Const General: well developed Nutritional Appearance: obese Orientation/consciousness: patient oriented x3 Resp Effort & Inspection: normal respiratory effort GI Other: Midline incision with 1 small open area superficial wound suggestive of a stitch abscess from the dissolvable suture. A seromas palpable to the right of midline. No changes noted with Valsalva maneuvers. No evidence of wound infection. Dry sterile dressings applied to the incision. Abdomen image: 2 1. seroma right lower quadrant to the right of incision Neuro General: patient oriented x3 Extrem General: No edema Assessment & Plan Assessment & Plan (1) Incisional hernia without obstruction or gangrene: Code(s): K43.2 - Incisional hernia without obstruction or gangrene Plan continue light duty with no lifting greater than 10 lb. Patient should apply bacitracin to the incision followed by dry sterile dressing. Will monitor the size of the seroma. May possibly require aspiration if it continues increase in size. Patient should follow-up in 2-3 weeks. Coding Level of Care Code Global (48886) Diagnoses Incisional hernia without obstruction or gangrene K43.2
[2023-01-12 13:13] VITALS: BP 131/78; PULSE 105; BMI 34.5
== END 2023-01-12 13:21 | disposition home or self-care (01) ==
PROVIDERS: PCP Internal Medicine Geriatric Medicine; Visit Provider Surgery
DX: K43.2 Incisional hernia without obstruction or gangrene (principal); L76.32 Postprocedural hematoma of skin and subcutaneous tissue following other procedure
CPT/HCPCS: 99213

== ENCOUNTER → 2023-01-12 12:53 | Outpatient (BNVA) | payer MEDICARE, MEDICAID, SELFPAY | PROVIDERS: PCP Internal Medicine Geriatric Medicine; Visit Provider Surgery | DX: K43.2 Incisional hernia without obstruction or gangrene (principal) | CPT/HCPCS: 99212 ==

== ENCOUNTER → 2023-01-15 09:49 | Outpatient (BNVA) | payer MEDICARE, MEDICAID, SELFPAY | PROVIDERS: PCP Internal Medicine Geriatric Medicine; Visit Provider Surgery | DX: Z48.00 Encounter for change or removal of nonsurgical wound dressing (principal) | CPT/HCPCS: 99211 ==

== ENCOUNTER 2023-01-17 11:24 | Outpatient (REF) | payer MEDICARE, MEDICAID, SELFPAY ==
--- NOTE | ~2023-01-17 | US_ITS ---
EXAMINATION: US THYROID CLINICAL INFORMATION: Nontoxic single thyroid nodule. COMPARISON: Ultrasound soft tissue head/neck thyroid dated 06/06/2021 and 04/12/2020. TECHNIQUE: Linear transducer grayscale and color Doppler examination with attention to the region of the thyroid. FINDINGS: SIZE: Measurements of the thyroid lobes and nodules are given in sagittal, anteroposterior and transverse dimensions respectively. Right Thyroid Lobe: 3.8 x 1.1 x 1.1 cm, volume 2.21 mL. Previously 3.6 x 1.3 x 1.6 cm, volume 3.9 mL. Parenchyma: The gland echotexture is heterogeneous. Thyroid vascularity is increased. Left Thyroid Lobe: 3.5 x 0.83 x 1.1 cm, volume 1.7 mL. Previously 3.8 x 1.2 x 1.4 cm, volume 3.3 mL. Parenchyma: The gland echotexture is heterogeneous. Thyroid vascularity is increased. Isthmus: 0.46 cm in maximum AP dimension. Previously 0.60 cm. Estimated total number of nodules greater than or equal to 1 cm: 0. Roller Hand nodules are described as follows: 1. Location: Right inferior. Size: 0.6 x 0.6 x 0.6 cm, volume 0.11 mL. Previously: 0.7 x 0.7 x 0.7 cm, volume 0.20 mL. Nodule characteristics: Composition: Solid (2). Echogenicity: Isoechoic (1). Shape: Not taller than wide (0). Margins: Smooth (0). Echogenic Foci: None (0). ACR TI-RADS total points: 3 ACR TI-RADS category: 3 Significant change in size (>/= 20% in 2 dimensions and minimal increase of 2 mm or 50% or greater increase in volume): No NODES: No lymphadenopathy is seen in the tissue surrounding the thyroid gland. US/US thyroid IMPRESSION: A 0.6 cm TR 3 right inferior thyroid nodule which does not meet criteria for follow-up. Heterogeneous hypervascular thyroid is seen in the setting of thyroiditis.. ACR TI-RADS RECOMMENDATION REFERENCE: Ultrasound-guided fine-needle aspiration, follow up ultrasound, no further followup. * TR1 (0 point) and TR2 (2 points): No FNA or followup * TR3 (3 points): FNA if more than or equal to 2.5 cm in maximum dimension, follow up ultrasound in 1, 3 and 5 years if 1.5 to 2.4 cm in maximum dimension. * TR4 (4-6 points): FNA if more than or equal to 1.5 cm in maximum dimension, follow up ultrasound in 1, 2, 3 and 5 years if 1 to 1.4 cm in maximum dimension. * TR5 (more than or equal to 7 points): FNA if more than or equal to 1 cm in maximum dimension, follow up ultrasound every year for 5 years if 0.5 to 0.9 cm in maximum dimension. * TR3, TR4 or TR5 nodules that are below the size threshold for follow up receive no followup.
== END 2023-01-17 11:25 | disposition home or self-care (01) ==
LOC: HO.US 11:24
PROVIDERS: PCP Internal Medicine Geriatric Medicine; Visit Provider Internal Medicine Geriatric Medicine
DX: E04.1 Nontoxic single thyroid nodule (principal)
CPT/HCPCS: 76536; 99211

== ENCOUNTER 2023-01-23 08:34 | Outpatient (REF) | payer MEDICARE, MEDICAID, SELFPAY ==
--- NOTE | ~2023-01-23 | CT_ITS ---
EXAMINATION: CT CHEST SCREENING CLINICAL INFORMATION: Current smoker; 40 pack-year history. COMPARISON: Chest CT examinations dated 08/05/2021 and 12/31/2020. TECHNIQUE: Multidetector volumetric CT imaging of the chest is performed without contrast using low dose technique. Additional 2D coronal and sagittal reformatted images and axial 3D maximum intensity projection (MIP) images are generated on the CT workstation. This CT examination was performed using dose optimization techniques as appropriate, variously including the following: *Automated exposure control *Adjustment of mA and/or kV according to patient size (this includes techniques or standardized protocols for targeted exams where dose is matched to indication/reason for exam; i.e. extremities or head) *Use of iterative reconstruction technique DLP: 64 mGy-cm FINDINGS: LUNGS: In the anterior right apex (5:103), a small benign, calcified granuloma is seen. In the posterior basal segment of the left lower lobe (5:258), a benign, stable 4 mm noncalcified nodule is seen, which is unchanged from 12/31/2020 (5:261). There is no new nodule, mass, infiltrate or groundglass opacity. There is mild biapical pleural and parenchymal scarring. There is mild linear scar/subsegmental atelectasis within the lingula and the lateral basal segment of the left lower lobe. There is no associated focal airway obstruction. No generalized small airway thickening is seen. The central airways appear patent. MEDIASTINUM: The thyroid is unremarkable. There is no thoracic aortic aneurysm. There are mild atherosclerotic calcifications of the great vessel origins and thoracic aorta. No mediastinal or hilar lymphadenopathy is seen. CORONARY ARTERY CALCIFICATION: Very mild. PLEURA: There is no pleural effusion. No pleural mass or thickening. AXILLA: No lymphadenopathy. UPPER ABDOMEN: Limited evaluation of the upper abdominal viscera, including the adrenal glands, is unremarkable. OSSEOUS STRUCTURES: Unremarkable. CT/CT lung screening IMPRESSION: There are benign, stable calcified and noncalcified lung nodules. No new nodule, mass, infiltrate or groundglass opacity is seen. There is no thoracic lymphadenopathy or pleural effusion. No aggressive osseous lesion is noted. ASSESSMENT: Lung-RADS category 2: Benign RECOMMENDATION: Routine annual low-dose CT screening in 12 months.
== END 2023-01-23 08:35 | disposition home or self-care (01) ==
LOC: HO.CT 08:34
PROVIDERS: PCP Internal Medicine Geriatric Medicine; Visit Provider Physician Assistant Medical
DX: Z12.2 Encounter for screening for malignant neoplasm of respiratory organs (principal); F17.210 Nicotine dependence, cigarettes, uncomplicated
CPT/HCPCS: 71271; 99212

== ENCOUNTER 2023-01-23 13:40 | Outpatient (AMB) | payer MEDICARE, MEDICAID, SELFPAY ==
--- NOTE | 2023-01-23 13:52 | MHC.OFFVIS ---
Intake Vital Signs 01/23/23 13:53 Height 5 ft 6 in Weight 213 lb 13.574 oz BMI 34.5 BP 122/72 Blood Pressure Location Lt brachial Position Sitting Intake Visit Reasons: 3 week follow-up incisional hernia Intake Note: Patient is seen in office for 3 wks follow up visit, post incisional hernia repair. 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 Accompanied by: Self / Same As Patient Allergies sertraline [From ZOLOFT] Allergy (Severe, Verified 01/23/23 13:56) GI UPSET/LETHARGY/CONFUSION atorvastatin [ATORVASTATIN] Allergy (Intermediate, Verified 01/23/23 13:56) SEVER MUSCLE/FOOT PAIN oxycodone [OXYCODONE] Allergy (Intermediate, Verified 01/23/23 13:56) GI UPSET,CONFUSION cefaclor [From Ceclor] Allergy (Mild, Verified 01/23/23 13:56) DYSPNEA Penicillins Allergy (Mild, Verified 01/23/23 13:56) DYSPNEA vancomycin [Vancomycin] Allergy (Mild, Verified 01/23/23 13:56) ITCHING acetaminophen [Tylenol-Codeine #3] Allergy (Unknown, Verified 01/23/23 13:56) Unknown penicillin V Allergy (Unknown, Verified 01/23/23 13:56) unknown HPI HPI Comments History of Present Illness Details Patient reports increased discharge from the midline incision since her last visit. She feels that some of the swelling is improved however there is still swelling to the right of midline. Discharge has persisted. She denies any fever or chills. [facility] Medical History Female bladder prolapse B12 deficiency Depression Hyperlipidemia Osteopenia Personal history of nicotine dependence Obesity Thyroid nodule Hypothyroidism (~2014) Surgical History History of incisional hernia repair (12/11/22) Previous section Hx of laparoscopy History of partial hysterectomy (05/2022) History of colonoscopy History of foot surgery Hx of mammogram Hx of cholecystectomy Hx of tonsillectomy History of esophagogastroduodenoscopy (EGD) Family History Father Heart disease Mother Cardiomyopathy Goiter Maternal Grandfather Stomach cancer Social History Alcohol intake: current Alcohol intake frequency: holidays/special occasions only Patient Tobacco Use Status: Current everyday Tobacco user Tobacco use type: Cigarette Cigarettes Per Day: 10 Years Smoked: 40 - onset 22, 1.5-2ppd x 38yrs, 60+PYH Physical Exam Vital Signs: Last Vital Signs BP 122/72 01/23/23 13:53 BMI result Body Mass Index 34.5 Const General: comfortable Nutritional Appearance: well nourished Orientation/consciousness: patient oriented x3 Resp Effort & Inspection: normal respiratory effort GI Other: Lower midline incision with an opening measuring approximately 1 cm in diameter reducing clear to cloudy discharge. An area of fullness is noted to the right of midline which does not change with Valsalva maneuvers. There is no overlying erythema to indicate underlying abscess. A needle aspiration was performed through the open incision and no seroma could be drained. Findings are suggestive of an underlying area of inflammation, scar tissue following hernia repair. Wounds were dressed with fluff gauze and ABD pad. Neuro General: patient oriented x3 Assessment & Plan Assessment & Plan (1) Incisional hernia without obstruction or gangrene: Code(s): K43.2 - Incisional hernia without obstruction or gangrene Plan Patient returns with spontaneous drainage of the seroma through the midline incision. The seroma is now improved although there is still small area of residual inflammation to the right of midline. Needle aspiration was negative for any further seroma. I recommended starting antibiotics to help decrease the inflammation. She should continue with the dry sterile dressings a return on Sunday follow-up examination. Medications: New doxycycline hyclate 100 mg PO BID 40 tabs 0RF K43.2 - Incisional hernia without obstruction or gangrene Coding Level of Care Code Global (90527) Diagnoses Incisional hernia without obstruction or gangrene K43.2
[2023-01-23 13:53] VITALS: BP 122/72; BMI 34.5
== END 2023-01-23 14:00 | disposition home or self-care (01) ==
PROVIDERS: PCP Internal Medicine Geriatric Medicine; Visit Provider Surgery
DX: K43.2 Incisional hernia without obstruction or gangrene (principal)
CPT/HCPCS: 99213

== ENCOUNTER → 2023-01-26 10:55 | Outpatient (BNVA) | payer MEDICARE, MEDICAID, SELFPAY | PROVIDERS: PCP Internal Medicine Geriatric Medicine; Visit Provider Surgery | DX: K43.2 Incisional hernia without obstruction or gangrene (principal) | CPT/HCPCS: 99212 ==

== ENCOUNTER → 2023-01-29 09:51 | Outpatient (BNVA) | payer MEDICARE, MEDICAID, SELFPAY | PROVIDERS: PCP Internal Medicine Geriatric Medicine; Visit Provider Surgery | DX: K42.9 Umbilical hernia without obstruction or gangrene (principal); K43.2 Incisional hernia without obstruction or gangrene; K58.0 Irritable bowel syndrome with diarrhea | CPT/HCPCS: 99211 ==

== ENCOUNTER → 2023-01-30 11:03 | Outpatient (BNVA) | payer MEDICARE, MEDICAID, SELFPAY | PROVIDERS: PCP Internal Medicine Geriatric Medicine; Visit Provider Surgery ==

== ENCOUNTER 2023-02-07 14:40 | Outpatient (REF) | payer MEDICARE, MEDICAID, SELFPAY ==
[2023-02-07 18:27] LABS: Blood Urea Nitrogen 13 mg/dL (9-16); Estimated Glomerular Filt Rate > 60
== END 2023-02-07 14:41 | disposition home or self-care (01) ==
LOC: HO.LAB 14:40
PROVIDERS: Absent Provider Nurse Practitioner; PCP Internal Medicine Geriatric Medicine; Visit Provider Surgery
DX: Z09 Encounter for follow-up examination after completed treatment for conditions other than malignant neoplasm (principal); R22.2 Localized swelling, mass and lump, trunk; Z87.19 Personal history of other diseases of the digestive system
CPT/HCPCS: 36415; 82565; 84520; 99212

== ENCOUNTER 2023-02-07 14:40 | Outpatient (AMB) | payer MEDICARE, MEDICAID, SELFPAY ==
--- NOTE | 2023-02-07 14:45 | MHC.OFFVIS ---
Intake Vital Signs 02/07/23 14:51 Height 5 ft 6 in Weight 210 lb BMI 33.9 BP 139/72 Blood Pressure Location Rt brachial Position Sitting Pulse 91 Intake Visit Reasons: wound check (JM pt) Intake Note: This patient patient presents for an assessment for wound check. Patient c/o; reports no changes at this time. 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 Accompanied by: Other Relationship Allergies sertraline [From ZOLOFT] Allergy (Severe, Verified 02/07/23 14:52) GI UPSET/LETHARGY/CONFUSION atorvastatin [ATORVASTATIN] Allergy (Intermediate, Verified 02/07/23 14:52) SEVER MUSCLE/FOOT PAIN oxycodone [OXYCODONE] Allergy (Intermediate, Verified 02/07/23 14:52) GI UPSET,CONFUSION cefaclor [From Ceclor] Allergy (Mild, Verified 02/07/23 14:52) DYSPNEA Penicillins Allergy (Mild, Verified 02/07/23 14:52) DYSPNEA vancomycin [Vancomycin] Allergy (Mild, Verified 02/07/23 14:52) ITCHING acetaminophen [Tylenol-Codeine #3] Allergy (Unknown, Verified 02/07/23 14:52) Unknown penicillin V Allergy (Unknown, Verified 02/07/23 14:52) unknown HPI wound check (SHERI pt) HPI Details She had undergone incisional hernia repair with Dr. Dubois last 12/11/2022 She has had this open wound on the area and had been following Dr. Dubois for wound care. She also has had this persistent ?lump? to the right of the incision. She feels that this has not really improved and had been persisted. She describes a little bit of discomfort She undergoes packing changes on the open wound every day. She has no GI complaints. She had been started on oral antibiotics work Dr. Dubois and she is supposed to complete this this weekend. [facility] Medical History Abdominal wall mass Female bladder prolapse B12 deficiency Depression Hyperlipidemia Osteopenia Personal history of nicotine dependence Obesity Thyroid nodule Hypothyroidism (~2014) Surgical History History of incisional hernia repair (12/11/22) Previous section Hx of laparoscopy History of partial hysterectomy (05/2022) History of colonoscopy History of foot surgery Hx of mammogram Hx of cholecystectomy Hx of tonsillectomy History of esophagogastroduodenoscopy (EGD) Family History Father Heart disease Mother Cardiomyopathy Goiter Maternal Grandfather Stomach cancer Social History Alcohol intake: current Alcohol intake frequency: holidays/special occasions only Patient Tobacco Use Status: Current everyday Tobacco user Tobacco use type: Cigarette Cigarettes Per Day: 10 Years Smoked: 40 - onset 22, 1.5-2ppd x 38yrs, 60+PYH Review of Systems Const Denies chills and Denies fever(s) Card Denies chest pain, Denies dyspnea and Denies dyspnea on exertion Resp Denies cough, Denies dyspnea and Denies dyspnea on exertion GI Denies hematochezia and Denies change in bowel habits Denies hematuria Musc Denies back pain and Denies limited range of motion Neuro Denies focal weakness and Denies convulsions Psych Denies depression and Denies mood swings Physical Exam Vital Signs: Last Vital Signs Pulse 91 02/07/23 14:51 BP 139/72 02/07/23 14:51 BMI result Body Mass Index 33.9 Const Other: Morbidly obese General: comfortable and no acute distress Resp Effort & Inspection: normal respiratory effort GI Other: Open wound, on the midline incision, about 1 cm in diameter but tunneling deep in the subcutaneous layer, about 4 cm deep on probing; vague mass to the right of the midline adjacent to the umbilicus, about 2.5 cm, Palpation (GI): not firm, nontender and no guarding Assessment & Plan Assessment & Plan (1) Abdominal wall mass: Code(s): R22.2 - Localized swelling, mass and lump, trunk Plan She has had a persistent mass in the abdominal wall after hernia repair last November,. She also has this persistent open wound that tunnels to the deep subcutaneous layer . She says she has 1st rated about this persistent issues. I have ordered for a CT scan investigate this persistent mass which may be a granuloma on the area. She is to follow-up with Dr. Dubois after the CT scan. I have changed her dressings and applied light packing for now. Overall, she looks well otherwise. Orders: Orders CT abdomen pelvis w IV con Today R22.2 - Localized swelling, mass and lump, trunk Blood Urea Nitrogen Today R22.2 - Localized swelling, mass and lump, trunk Creatinine Today R22.2 - Localized swelling, mass and lump, trunk Coding Level of Care Code Global (06935) Diagnoses Abdominal wall mass R22.2
[2023-02-07 14:51] VITALS: BP 139/72; PULSE 91; BMI 33.9
== END 2023-02-07 15:06 | disposition home or self-care (01) ==
PROVIDERS: PCP Internal Medicine Geriatric Medicine; Visit Provider Surgery
DX: R22.2 Localized swelling, mass and lump, trunk (principal)
CPT/HCPCS: 99213

== ENCOUNTER 2023-02-09 09:16 | Outpatient (REF) | payer MEDICARE, MEDICAID, SELFPAY ==
[2023-02-09] MEDS: iohexoL 350 MG/ML 75 ML INFUS..BTL 85 ML IV (09:57)
== END 2023-02-09 09:17 | disposition home or self-care (01) ==
LOC: HO.CT 09:16
PROVIDERS: Visit Provider Surgery
DX: R22.2 Localized swelling, mass and lump, trunk (principal)
CPT/HCPCS: 74177; Q9967

== ENCOUNTER 2023-02-15 10:41 | Outpatient (AMB) | payer MEDICARE, MEDICAID, SELFPAY ==
--- NOTE | 2023-02-15 10:49 | MHC.OFFVIS ---
Intake Vital Signs 02/15/23 10:54 Height 5 ft 6 in Weight 208 lb BMI 33.6 BP 113/71 Blood Pressure Location Rt brachial Position Sitting Pulse 102 H Intake Visit Reasons: Abdominal wall mass, CT results Intake Note: Patient is seen in office for CT scan results, following abdominal wall mass. Pt c/o: reports no changes at this time. CT: 02/09/23 (not read) Collector Required: No Accompanied by: Other Relationship Allergies sertraline [From ZOLOFT] Allergy (Severe, Verified 02/15/23 10:55) GI UPSET/LETHARGY/CONFUSION atorvastatin [ATORVASTATIN] Allergy (Intermediate, Verified 02/15/23 10:55) SEVER MUSCLE/FOOT PAIN oxycodone [OXYCODONE] Allergy (Intermediate, Verified 02/15/23 10:55) GI UPSET,CONFUSION cefaclor [From Ceclor] Allergy (Mild, Verified 02/15/23 10:55) DYSPNEA Penicillins Allergy (Mild, Verified 02/15/23 10:55) DYSPNEA vancomycin [Vancomycin] Allergy (Mild, Verified 02/15/23 10:55) ITCHING acetaminophen [Tylenol-Codeine #3] Allergy (Unknown, Verified 02/15/23 10:55) Unknown penicillin V Allergy (Unknown, Verified 02/15/23 10:55) unknown Medication List - Last Reconciled 02/16/23 by Sp Dubois MD albuterol sulfate 90 mcg/actuation inhalation PRN cholestyramine-aspartame 4 gram (Cholestyramine Light) 4 grams PO BID cyanocobalamin (vitamin B-12) 1,000 mcg IM docusate sodium 100 mg PO BID doxycycline hyclate 100 mg PO BID fluticasone propionate 110 mcg/actuation (Flovent HFA) inhalation hydrocodone-acetaminophen 5-300 mg 1 tab PO Q6H PRN hydrocodone-acetaminophen 5-300 mg 1 tab PO BID PRN levothyroxine 50 mcg PO DAILY mometasone 0.1% appl topical DAILY naloxone 4 mg/actuation 0 sprays intranasal nystatin 400,000 units (4 mL) PO QID 7 days paroxetine HCl 10 mg PO DAILY awkmaivic-uevuae-syzjzhhi-scop 16.2-0.1037 -0.0194 mg (Phenohytro) 1 tab PO TID polyethylene glycol 3350 17 grams PO DAILY HPI HPI Comments History of Present Illness Details Patient returns today for wound check and review of her recent CT. She reports continued discharge from the wound and has visiting nurses changing the dressing [address] abdomen and pelvis was reviewed in detail with the patient and her family. Inflammatory changes noted in the right abdomen adjacent to the previous hernia site. No seroma or mesh disruption is identified. No involvement of underlying bowel is identified as well. Subcutaneous air is consistent with the open wound and packing currently in place. [facility] Medical History Abdominal wall mass Female bladder prolapse B12 deficiency Depression Hyperlipidemia Osteopenia Personal history of nicotine dependence Obesity Thyroid nodule Hypothyroidism (~2014) Surgical History History of incisional hernia repair (12/11/22) Previous section Hx of laparoscopy History of partial hysterectomy (05/2022) History of colonoscopy History of foot surgery Hx of mammogram Hx of cholecystectomy Hx of tonsillectomy History of esophagogastroduodenoscopy (EGD) Family History Father Heart disease Mother Cardiomyopathy Goiter Maternal Grandfather Stomach cancer Social History Alcohol intake: current Alcohol intake frequency: holidays/special occasions only Patient Tobacco Use Status: Current everyday Tobacco user Tobacco use type: Cigarette Cigarettes Per Day: 10 Years Smoked: 40 - onset 22, 1.5-2ppd x 40yrs, 60+PYH Physical Exam Vital Signs: Last Vital Signs Pulse 102 H 02/15/23 10:54 BP 113/71 02/15/23 10:54 BMI result Body Mass Index 33.6 Const General: no acute distress Nutritional Appearance: well nourished Orientation/consciousness: patient oriented x3 Resp Effort & Inspection: normal respiratory effort, no cough and no respiratory distress GI Other: Dressings changed to abdominal incision. Current opening measures approximately 0.5 cm in diameter extends approximately 3 cm deep. Granulation is noted at the margins wounds were packed with quarter-inch Nu Gauze followed by dry sterile dressings. Patient tolerated the dressing change well. Overall the wounds are much improved from prior examination. Neuro General: patient oriented x3 Assessment & Plan Assessment & Plan (1) Incisional hernia without obstruction or gangrene: Code(s): K43.2 - Incisional hernia without obstruction or gangrene Plan 62-year-old female patient returning following recent incisional hernia repair. CT revealed mainly postoperative change at the site of the previous hernia with no seroma, abscess or hernia recurrence. Mesh repair is intact and no bowel changes are noted. Patient completed her antibiotics and no further antibiotics will be given at this time. I have asked her to return in 1 week for wound examination. She should continue with visiting nurses as well. Coding Level of Care Code Global (67415) Diagnoses Incisional hernia without obstruction or gangrene K43.2
[2023-02-15 10:54] VITALS: BP 113/71; PULSE 102; BMI 33.6
== END 2023-02-15 11:12 | disposition home or self-care (01) ==
PROVIDERS: PCP Internal Medicine Geriatric Medicine; Visit Provider Surgery
DX: K43.2 Incisional hernia without obstruction or gangrene (principal)
CPT/HCPCS: 99213

== ENCOUNTER → 2023-02-15 10:41 | Outpatient (BNVA) | payer MEDICARE, MEDICAID, SELFPAY | PROVIDERS: PCP Internal Medicine Geriatric Medicine; Visit Provider Surgery | DX: K43.2 Incisional hernia without obstruction or gangrene (principal) | CPT/HCPCS: 99212 ==

== ENCOUNTER 2023-02-22 11:40 | Outpatient (AMB) | payer MEDICARE, MEDICAID, SELFPAY ==
--- NOTE | 2023-02-22 11:45 | MHC.OFFVIS ---
Intake Vital Signs 02/22/23 11:53 Height 5 ft 6 in Weight 207 lb BMI 33.4 BP 138/94 H Blood Pressure Location Lt brachial Position Sitting Pulse 93 Intake Visit Reasons: follow up Abdominal wall mass Intake Note: Patient is seen in office for follow up visit, following abdominal wall abscess. Pt c/o: admits to less discharge in the area, has nurses coming in 3 times a week, applying dry wick, admits to nausea and pain Abap Developer Required: No Accompanied by: Self / Same As Patient Allergies sertraline [From ZOLOFT] Allergy (Severe, Verified 02/22/23 11:52) GI UPSET/LETHARGY/CONFUSION atorvastatin [ATORVASTATIN] Allergy (Intermediate, Verified 02/22/23 11:52) SEVER MUSCLE/FOOT PAIN oxycodone [OXYCODONE] Allergy (Intermediate, Verified 02/22/23 11:52) GI UPSET,CONFUSION cefaclor [From Ceclor] Allergy (Mild, Verified 02/22/23 11:52) DYSPNEA Penicillins Allergy (Mild, Verified 02/22/23:52) DYSPNEA vancomycin [Vancomycin] Allergy (Mild, Verified 02/22/23 11:52) ITCHING acetaminophen [Tylenol-Codeine #3] Allergy (Unknown, Verified 02/22/23:52) Unknown penicillin V Allergy (Unknown, Verified 02/22/23:) unknown HPI HPI Comments History of Present Illness Details Patient returns today for wound check and review of her recent CT. She reports continued discharge from the wound and has visiting nurses changing the dressing [address] abdomen and pelvis was reviewed in detail with the patient and her family. Inflammatory changes noted in the right abdomen adjacent to the previous hernia site. No seroma or mesh disruption is identified. No involvement of underlying bowel is identified as well. Subcutaneous air is consistent with the open wound and packing currently in place. [facility] Medical History Abdominal wall mass Female bladder prolapse B12 deficiency Depression Hyperlipidemia Osteopenia Personal history of nicotine dependence Obesity Thyroid nodule Hypothyroidism (~2014) Surgical History History of incisional hernia repair (12/11/22) Previous section Hx of laparoscopy History of partial hysterectomy (05/2022) History of colonoscopy History of foot surgery Hx of mammogram Hx of cholecystectomy Hx of tonsillectomy History of esophagogastroduodenoscopy (EGD) Family History Father Heart disease Mother Cardiomyopathy Goiter Maternal Grandfather Stomach cancer Social History Alcohol intake: current Alcohol intake frequency: holidays/special occasions only Patient Tobacco Use Status: Current everyday Tobacco user Tobacco use type: Cigarette Cigarettes Per Day: 10 Years Smoked: 40 - onset 22, 1.5-2ppd x 40yrs, 60+PYH Physical Exam Const General: no acute distress Nutritional Appearance: well nourished Orientation/consciousness: patient oriented x3 Resp Effort & Inspection: normal respiratory effort, no cough and no respiratory distress GI Other: Wounds examined and dressings changed. No erythema identified in the skin. Wound measures just slightly less than 3 cm in depth. Wound packed with quarter-inch Nu gauze followed by 4 x 4 and ABD pad. Patient tolerated dressing change well. Neuro General: patient oriented x3 Assessment & Plan Assessment & Plan (1) Incisional hernia without obstruction or gangrene: Code(s): K43.2 - Incisional hernia without obstruction or gangrene Plan Slow improvement in the abdominal incision closing slightly from last week. Continue local wound care with visiting nurses and follow-up in 2 weeks. Coding Level of Care Code Global (86566) Diagnoses Incisional hernia without obstruction or gangrene K43.2
[2023-02-22 11:53] VITALS: BP 138/94; PULSE 93; BMI 33.4
== END 2023-02-22 12:01 | disposition home or self-care (01) ==
PROVIDERS: PCP Internal Medicine Geriatric Medicine; Visit Provider Surgery
DX: K43.2 Incisional hernia without obstruction or gangrene (principal)
CPT/HCPCS: 99212

== ENCOUNTER → 2023-02-22 11:40 | Outpatient (BNVA) | payer MEDICARE, MEDICAID, SELFPAY | PROVIDERS: PCP Internal Medicine Geriatric Medicine; Visit Provider Surgery | DX: K43.2 Incisional hernia without obstruction or gangrene (principal) | CPT/HCPCS: 99212 ==

== ENCOUNTER 2023-02-27 12:57 | Outpatient (AMB) | payer MEDICARE, MEDICAID, SELFPAY ==
--- NOTE | 2023-02-27 13:04 | A.OFFVIS_ITS ---
Intake Vital Signs 02/27/23 13:05 Height 5 ft 6 in Weight 207 lb BMI 33.4 BP 120/82 Blood Pressure Location Lt brachial Position Sitting Intake Visit Reasons: wound check - bump increasing in size Intake Note: Patient is seen in office for wound check, post hernia repair. Pt c/o: admits that lump has increase in size, some yellow discharge Service Advocate Contact Required: No Accompanied by: Self / Same As Patient Allergies sertraline [From ZOLOFT] Allergy (Severe, Verified 02/27/23 13:07) GI UPSET/LETHARGY/CONFUSION atorvastatin [ATORVASTATIN] Allergy (Intermediate, Verified 02/27/23 13:07) SEVER MUSCLE/FOOT PAIN oxycodone [OXYCODONE] Allergy (Intermediate, Verified 02/27/23 13:07) GI UPSET,CONFUSION cefaclor [From Ceclor] Allergy (Mild, Verified 02/27/23 13:07) DYSPNEA Penicillins Allergy (Mild, Verified 02/27/23 13:07) DYSPNEA vancomycin [Vancomycin] Allergy (Mild, Verified 02/27/23 13:07) ITCHING acetaminophen [Tylenol-Codeine #3] Allergy (Unknown, Verified 02/27/23 13:07) Unknown penicillin V Allergy (Unknown, Verified 02/27/23 13:07) unknown HPI HPI Comments History of Present Illness Details VNA felt the lump in the right upper quadrant is increasing in size and recommended re-examination. Patient continues to have some cloudy discharge from opening. Denies any pain associated with the lump. [facility] Medical History Abdominal wall mass Female bladder prolapse B12 deficiency Depression Hyperlipidemia Osteopenia Personal history of nicotine dependence Obesity Thyroid nodule Hypothyroidism (~2014) Surgical History History of incisional hernia repair (12/11/22) Previous section Hx of laparoscopy History of partial hysterectomy (05/2022) History of colonoscopy History of foot surgery Hx of mammogram Hx of cholecystectomy Hx of tonsillectomy History of esophagogastroduodenoscopy (EGD) Family History Father Heart disease Mother Cardiomyopathy Goiter Maternal Grandfather Stomach cancer Social History Alcohol intake: current Alcohol intake frequency: holidays/special occasions only Patient Tobacco Use Status: Current everyday Tobacco user Tobacco use type: Cigarette Cigarettes Per Day: 10 Years Smoked: 40 - onset 22, 1.5-2ppd x 38yrs, 60+PYH Physical Exam Vital Signs: Last Vital Signs BP 120/82 02/27/23 13:05 BMI result Body Mass Index 33.4 Const General: no acute distress Nutritional Appearance: well nourished Orientation/consciousness: patient oriented x3 Limitations: no limitations GI Other: Wound packed with Nu Gauze. Thin white fluid draining. Wound is 2.5 cm deep by 0.75 cm wide. Lump is unchanged in the right upper quadrant, nontender to palpation with no overlying skin change consistent with postoperative scar tissue. No changes noted with Valsalva maneuvers. Neuro General: patient oriented x3 Extrem Other: No edema Assessment & Plan Assessment & Plan (1) Abdominal wall mass: Code(s): R22.2 - Localized swelling, mass and lump, trunk Plan No change in the swelling in the right upper quadrant consistent with postoperative scar tissue. Site is non fluctuant, nontender with no overlying skin change to suggest underlying abscess. Previous attempts at needle aspiration were negative as well. CT negative for abscess. Continue local wound care with packing of incision and dry sterile dressings. Restart antibiotics for 10 days. Follow-up in 1 week. Medications: Refilled doxycycline hyclate 100 mg PO BID 20 tabs 0RF K43.2 - Incisional hernia without obstruction or gangrene Coding Level of Care Code Global (83237) Diagnoses Abdominal wall mass R22.2
[2023-02-27 13:05] VITALS: BP 120/82; BMI 33.4
== END 2023-02-27 13:47 | disposition home or self-care (01) ==
PROVIDERS: PCP Internal Medicine Geriatric Medicine; Visit Provider Surgery
DX: R22.2 Localized swelling, mass and lump, trunk (principal)
CPT/HCPCS: 99213

== ENCOUNTER → 2023-02-27 12:57 | Outpatient (BNVA) | payer MEDICARE, MEDICAID, SELFPAY | PROVIDERS: PCP Internal Medicine Geriatric Medicine; Visit Provider Surgery | DX: R22.2 Localized swelling, mass and lump, trunk (principal) | CPT/HCPCS: 99212 ==

== ENCOUNTER 2023-03-08 09:23 | Outpatient (AMB) | payer MEDICARE, MEDICAID, SELFPAY ==
--- NOTE | 2023-03-08 09:24 | MHC.OFFVIS ---
Intake Vital Signs 03/08/23 09:33 Height 5 ft 6 in Weight 204 lb 8 oz BMI 33.0 BP 121/77 Blood Pressure Location Lt brachial Position Sitting Pulse 98 Intake Visit Reasons: follow up Abdominal wall mass Intake Note: Patient is seen in office for follow up visit, following abdominal wall mass. 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 Accompanied by: Self / Same As Patient Allergies sertraline [From ZOLOFT] Allergy (Severe, Verified 03/08/23 09:25) GI UPSET/LETHARGY/CONFUSION atorvastatin [ATORVASTATIN] Allergy (Intermediate, Verified 03/08/23 09:25) SEVER MUSCLE/FOOT PAIN oxycodone [OXYCODONE] Allergy (Intermediate, Verified 03/08/23 09:25) GI UPSET,CONFUSION cefaclor [From Ceclor] Allergy (Mild, Verified 03/08/23 09:25) DYSPNEA Penicillins Allergy (Mild, Verified 03/08/23 09:25) DYSPNEA vancomycin [Vancomycin] Allergy (Mild, Verified 03/08/23 09:25) ITCHING acetaminophen [Tylenol-Codeine #3] Allergy (Unknown, Verified 03/08/23 09:25) Unknown penicillin V Allergy (Unknown, Verified 03/08/23 09:25) unknown HPI HPI Comments History of Present Illness Details 62-year-old female patient returning for wound check following repair of a large incisional hernia on 12/12/2023. She continues to have [facility]NA for dressing changes 3 times weekly. She reports continued discharge from the wound. She was placed on oral antibiotics doxycycline 100 mg p.o. b.i.d.. [facility] Medical History Abdominal wall mass Female bladder prolapse B12 deficiency Depression Hyperlipidemia Osteopenia Personal history of nicotine dependence Obesity Thyroid nodule Hypothyroidism (~2014) Surgical History History of incisional hernia repair (12/11/22) Previous section Hx of laparoscopy History of partial hysterectomy (05/2022) History of colonoscopy History of foot surgery Hx of mammogram Hx of cholecystectomy Hx of tonsillectomy History of esophagogastroduodenoscopy (EGD) Family History Father Heart disease Mother Cardiomyopathy Goiter Maternal Grandfather Stomach cancer Social History Alcohol intake: current Alcohol intake frequency: holidays/special occasions only Patient Tobacco Use Status: Current everyday Tobacco user Tobacco use type: Cigarette Cigarettes Per Day: 10 Years Smoked: 40 - onset 22, 1.5-2ppd x 40yrs, 60+PYH Physical Exam Const General: no acute distress Nutritional Appearance: well nourished Orientation/consciousness: patient oriented x3 Limitations: no limitations GI Other: Wound packed with Nu Gauze. Thin white fluid draining. Wound is 2 cm deep by 0.75 cm wide. Lump is much smaller in the right upper quadrant, nontender to palpation with no overlying skin change consistent with postoperative scar tissue. No changes noted with Valsalva maneuvers. Packing was removed dry sterile dressings applied. Neuro General: patient oriented x3 Extrem Other: No edema Assessment & Plan Assessment & Plan (1) Incisional hernia without obstruction or gangrene: Code(s): K43.2 - Incisional hernia without obstruction or gangrene Plan Patient will continue with daily dressing changes but the packing will be stopped. Patient will return in 1 week for follow-up evaluation. She should continue the antibiotics until complete. Orders change with VNA by phone. Coding Level of Care Code Global (08256) Diagnoses Incisional hernia without obstruction or gangrene K43.2
[2023-03-08 09:33] VITALS: BP 121/77; PULSE 98; BMI 33.0
== END 2023-03-08 09:42 | disposition home or self-care (01) ==
PROVIDERS: PCP Internal Medicine Geriatric Medicine; Visit Provider Surgery
DX: K43.2 Incisional hernia without obstruction or gangrene (principal)
CPT/HCPCS: 99213

== ENCOUNTER → 2023-03-08 09:23 | Outpatient (BNVA) | payer MEDICARE, MEDICAID, SELFPAY | PROVIDERS: PCP Internal Medicine Geriatric Medicine; Visit Provider Surgery | DX: K43.2 Incisional hernia without obstruction or gangrene (principal) | CPT/HCPCS: 99212 ==

== ENCOUNTER 2023-03-09 11:10 | Outpatient (REF) | payer MEDICARE, MEDICAID, SELFPAY ==
[2023-03-09 12:43] LABS: C Reactive Protein 0.56 mg/dL (< or = 0.50)
== END 2023-03-09 11:11 | disposition home or self-care (01) ==
LOC: HO.LAB 11:10
PROVIDERS: Visit Provider Nurse Practitioner
DX: R19.7 Diarrhea, unspecified (principal)
CPT/HCPCS: 36415; 86003; 86140

== ENCOUNTER 2023-03-12 11:24 | Outpatient (AMB) | payer MEDICARE, MEDICAID, SELFPAY ==
--- NOTE | 2023-03-12 11:27 | A.OFFVIS_ITS ---
Intake Vital Signs 03/12/23 11:29 Height 5 ft 6 in Weight 202 lb 13.204 oz BMI 32.7 BP 120/78 Blood Pressure Location Lt brachial Position Sitting Pulse 91 Intake Visit Reasons: may pt second opinion Intake Note: Tenisha presents in the office as a second opinion from Luna Swartz. She states she was given a Rast Allergen. Allergies sertraline [From ZOLOFT] Allergy (Severe, Verified 03/08/23 09:25) GI UPSET/LETHARGY/CONFUSION atorvastatin [ATORVASTATIN] Allergy (Intermediate, Verified 03/08/23 09:25) SEVER MUSCLE/FOOT PAIN oxycodone [OXYCODONE] Allergy (Intermediate, Verified 03/08/23 09:25) GI UPSET,CONFUSION cefaclor [From Ceclor] Allergy (Mild, Verified 03/08/23 09:25) DYSPNEA Penicillins Allergy (Mild, Verified 03/08/23 09:25) DYSPNEA vancomycin [Vancomycin] Allergy (Mild, Verified 03/08/23 09:25) ITCHING acetaminophen [Tylenol-Codeine #3] Allergy (Unknown, Verified 03/08/23 09:25) Unknown penicillin V Allergy (Unknown, Verified 03/08/23 09:25) unknown HPI may pt second opinion HPI Details 62 yr old f here for f/u Had been seeing May, ongoing diarrhea with constipation bouts she can go up to 8 times a day, feels prolapse has came back she takes colace she has gas bloating with veg says she has had lazy colon and IBS etc since GB removed aged 19 she had rectal and vaginal prolapse surgery 05/2022 she was intolerant of cholestyramine -made her sick recovering from ventral hernia repair abscess and just finsished ABx, finally healing ibuprofen every other day at least OD last colonoscopy 2016--- no random bx done. hyperplastic polyp removed LABS: stool PCR GI--neg c diff neg celiac neg RAST pending EXAM: GENERAL: The patient is well developed and nontoxic. VITAL SIGNS:see workflow HEENT: Nonicteric sclerae, PERRLA, EOMI. Oropharynx clear. Moist mucous membranes. Conjunctivae appear well perfused. No thyroid mass. CHEST: Chest wall is nontender. HEART: Regular rate and rhythm without murmurs. LUNGS: Clear to auscultation bilaterally. ABDOMEN: Soft, positive bowel sounds, nontender, no organomegaly.no flank tenderness--bandage lower abdo SKIN: No rash, no excessive bruising, petechiae, or purpura. NEUROLOGIC: Cranial nerves II-XII intact without motor/sensory deficit. Psych: nml affect A/P: 1/ Abn bowel habit ddx: BAM, SIBO, CHO i ntolerance, food allergies, IBD, microscopic colitis--tried fodmap PLAN: 1/ Await RAST if neg then SIBO test, fec al lacto, elastas,e fats, tryptase, h istamine 2/ she is against other tabs and meds at this time, discussed other options like acupuncture, massage therapies etc PFSH Medical History Abdominal wall mass Female bladder prolapse B12 deficiency Depression Hyperlipidemia Osteopenia Personal history of nicotine dependence Obesity Thyroid nodule Hypothyroidism (~2014) Surgical History History of incisional hernia repair (12/11/22) Previous section Hx of laparoscopy History of partial hysterectomy (05/2022) History of colonoscopy History of foot surgery Hx of mammogram Hx of cholecystectomy Hx of tonsillectomy History of esophagogastroduodenoscopy (EGD) Family History Father Heart disease Mother Cardiomyopathy Goiter Maternal Grandfather Stomach cancer Social History Alcohol intake: current Alcohol intake frequency: holidays/special occasions only Patient Tobacco Use Status: Current everyday Tobacco user Tobacco use type: Cigarette Cigarettes Per Day: 10 Years Smoked: 40 - onset 22, 1.5-2ppd x 40yrs, 60+PYH Physical Exam Vital Signs: Last Vital Signs Pulse 91 03/12/23 11:29 BP 120/78 03/12/23 11:29 BMI result Body Mass Index 32.7 Assessment & Plan Assessment & Plan (1) Irritable bowel syndrome with diarrhea: Code(s): K58.0 - Irritable bowel syndrome with diarrhea Plan: A/P: 1/ Abn bowel habit ddx: BAM, SIBO, CHO intolerance, food allergies, IBD, microscopic colitis--tried fodmap PLAN: 1/ Await RAST if neg then SIBO test, fecal lacto, elastas,e fats, tryptase, histamine 2/ she is against other tabs and meds at this time, discussed other options like acupuncture, massage therapies etc (2) Dysphagia: Code(s): R13.10 - Dysphagia, unspecified Plan: A/P: 1/ Abn bowel habit ddx: BAM, SIBO, CHO intolerance, food allergies, IBD, microscopic colitis--tried fodmap PLAN: 1/ Await RAST if neg then SIBO test, fecal lacto, elastas,e fats, tryptase, histamine 2/ she is against other tabs and meds at this time, discussed other options like acupuncture, massage therapies etc Coding Level of Care Code Est Pt Level 4 (39356) Diagnoses Irritable bowel syndrome with diarrhea K58.0 Dysphagia R13.10
[2023-03-12 11:29] VITALS: BP 120/78; PULSE 91; BMI 32.7
== END 2023-03-12 13:22 | disposition home or self-care (01) ==
PROVIDERS: PCP Internal Medicine Geriatric Medicine; Visit Provider Internal Medicine Gastroenterology
DX: K58.0 Irritable bowel syndrome with diarrhea (principal); R13.10 Dysphagia, unspecified
CPT/HCPCS: 99214

== ENCOUNTER → 2023-03-12 11:24 | Outpatient (BNVA) | payer MEDICARE, MEDICAID, SELFPAY | PROVIDERS: PCP Internal Medicine Geriatric Medicine; Visit Provider Internal Medicine Gastroenterology | DX: K58.0 Irritable bowel syndrome with diarrhea (principal); R13.10 Dysphagia, unspecified | CPT/HCPCS: 99212 ==

== ENCOUNTER 2023-03-15 09:06 | Outpatient (AMB) | payer MEDICARE, MEDICAID, SELFPAY ==
[2023-03-15 09:17] VITALS: BP 124/68; PULSE 101; BMI 33.1
--- NOTE | 2023-03-15 09:17 | A.OFFVIS_ITS ---
Intake Vital Signs 03/15/23 09:17 Height 5 ft 6 in Weight 205 lb BMI 33.1 BP 124/68 Blood Pressure Location Lt brachial Position Sitting Pulse 101 H Intake Visit Reasons: f/u Abdominal wall mass Intake Note: Patient is seen in office for follow up visit, following abdominal wall mass. 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 Accompanied by: Self / Same As Patient Allergies sertraline [From ZOLOFT] Allergy (Severe, Verified 03/15/23 09:18) GI UPSET/LETHARGY/CONFUSION atorvastatin [ATORVASTATIN] Allergy (Intermediate, Verified 03/15/23 09:18) SEVER MUSCLE/FOOT PAIN oxycodone [OXYCODONE] Allergy (Intermediate, Verified 03/15/23 09:18) GI UPSET,CONFUSION cefaclor [From Ceclor] Allergy (Mild, Verified 03/15/23 09:18) DYSPNEA Penicillins Allergy (Mild, Verified 03/15/23 09:18) DYSPNEA vancomycin [Vancomycin] Allergy (Mild, Verified 03/15/23 09:18) ITCHING acetaminophen [Tylenol-Codeine #3] Allergy (Unknown, Verified 03/15/23 09:18) Unknown penicillin V Allergy (Unknown, Verified 03/15/23 09:18) unknown Medication List - Last Reconciled 03/15/23 by Sp Dubois MD albuterol sulfate 90 mcg/actuation inhalation PRN cyanocobalamin (vitamin B-12) 1,000 mcg IM docusate sodium 100 mg PO BID fluticasone propionate 110 mcg/actuation (Flovent HFA) inhalation hydrocodone-acetaminophen 5-300 mg 1 tab PO Q6H PRN hydrocodone-acetaminophen 5-300 mg 1 tab PO BID PRN hydrocodone-acetaminophen 5-325 mg 1 tab PO BID PRN ibuprofen 800 mg PO TID levothyroxine 50 mcg PO DAILY mometasone 0.1% appl topical DAILY naloxone 4 mg/actuation 0 sprays intranasal nystatin 400,000 units (4 mL) PO QID 7 days omeprazole 20 mg PO DAILY paroxetine HCl 10 mg PO DAILY sozsowzmn-szybts-hnyieolj-scop 16.2-0.1037 -0.0194 mg (Phenohytro) 1 tab PO TID polyethylene glycol 3350 17 grams PO DAILY HPI HPI Comments History of Present Illness Details 62-year-old female status post repair of an incisional hernia in the lower abdomen returning today for wound check. Since the packing was removed she denies any further discharge. She does have some pain in the incision when standing and sitting. She denies any redness and is no longer applying a dressing. She denies fever or chills. [facility] Medical History Abdominal wall mass Female bladder prolapse B12 deficiency Depression Hyperlipidemia Osteopenia Personal history of nicotine dependence Obesity Thyroid nodule Hypothyroidism (~2014) Surgical History History of incisional hernia repair (12/11/22) Previous section Hx of laparoscopy History of partial hysterectomy (05/2022) History of colonoscopy History of foot surgery Hx of mammogram Hx of cholecystectomy Hx of tonsillectomy History of esophagogastroduodenoscopy (EGD) Family History Father Heart disease Mother Cardiomyopathy Goiter Maternal Grandfather Stomach cancer Social History Alcohol intake: current Alcohol intake frequency: holidays/special occasions only Patient Tobacco Use Status: Current everyday Tobacco user Tobacco use type: Cigarette Cigarettes Per Day: 10 Years Smoked: 40 - onset 22, 1.5-2ppd x 40yrs, 60+PYH Physical Exam Vital Signs: Last Vital Signs Pulse 101 H 03/15/23 09:17 BP 124/68 03/15/23 09:17 BMI result Body Mass Index 33.1 Const General: comfortable and no acute distress Nutritional Appearance: well nourished Orientation/consciousness: patient oriented x3 GI Other: Abdominal incision is now well healed with no further discharge. The incision is now well healed. No erythema or fluctuance is appreciated. No tenderness to deep palpation. No hernias are identified with Valsalva maneuvers. Neuro General: patient oriented x3 Assessment & Plan Assessment & Plan (1) Abdominal wall mass: Code(s): R22.2 - Localized swelling, mass and lump, trunk (2) Incisional hernia without obstruction or gangrene: Code(s): K43.2 - Incisional hernia without obstruction or gangrene Plan 62-year-old female patient returning for wound check after incisional hernia repair. The persistent drainage is now stopped and no purulent discharge or abscess is identified. We will schedule her for an ultrasound around the incision to evaluate for any residual seroma. She will return following the study to review the results. She is welcome to call sooner for any new concerns. Orders: Orders US abdomen limited Today K43.2 - Incisional hernia without obstruction or gangrene, R22.2 - Localized swelling, mass and lump, trunk Coding Level of Care Code Global (80685) Diagnoses Abdominal wall mass R22.2 Incisional hernia without obstruction or gangrene K43.2
== END 2023-03-15 09:21 | disposition home or self-care (01) ==
PROVIDERS: PCP Internal Medicine Geriatric Medicine; Visit Provider Surgery
DX: R22.2 Localized swelling, mass and lump, trunk (principal); K43.2 Incisional hernia without obstruction or gangrene
CPT/HCPCS: 99213

== ENCOUNTER → 2023-03-15 09:06 | Outpatient (BNVA) | payer MEDICARE, MEDICAID, SELFPAY | PROVIDERS: PCP Internal Medicine Geriatric Medicine; Visit Provider Surgery | DX: Z48.815 Encounter for surgical aftercare following surgery on the digestive system (principal); R22.2 Localized swelling, mass and lump, trunk | CPT/HCPCS: 99212 ==

== ENCOUNTER 2023-03-20 08:26 | Outpatient (REF) | payer MEDICARE, MEDICAID, SELFPAY ==
--- NOTE | ~2023-03-20 | US_ITS ---
EXAMINATION: US ABDOMEN LIMITED CLINICAL INFORMATION: Pain/lump right periumbilical region. History of periumbilical hernia surgery on 12/11/2022. History of abscess/seroma with drainage COMPARISON: 02/09/2023 CT TECHNIQUE: Real-time imaging of the right periumbilical region. Permanent documented images obtained and cine images obtained. FINDINGS: In the region of right periumbilical discomfort/lump, complex appearing tissue is identified. There is suggestion of a 7.2 x 3.0 x 5.1 cm soft tissue mass, question hernia and/or abscess. US/US abdomen limited IMPRESSION: Abnormal right periumbilical soft tissue, underlying abscess and/or hernia not excluded. Abdomen/pelvic CT with IV and oral contrast recommended.
== END 2023-03-20 08:27 | disposition home or self-care (01) ==
LOC: HO.US 08:26
PROVIDERS: PCP Internal Medicine Geriatric Medicine; Visit Provider Surgery
DX: R22.2 Localized swelling, mass and lump, trunk (principal); K43.2 Incisional hernia without obstruction or gangrene
CPT/HCPCS: 76705

== ENCOUNTER 2023-03-23 08:34 | Outpatient (AMB) | payer MEDICARE, MEDICAID, SELFPAY ==
[2023-03-23 09:04] VITALS: BP 143/79; PULSE 107; BMI 33.1
--- NOTE | 2023-03-23 09:04 | A.OFFVIS_ITS ---
Intake Vital Signs 03/23/23 09:04 Height 5 ft 6 in Weight 205 lb BMI 33.1 BP 143/79 H Blood Pressure Location Lt brachial Position Sitting Pulse 107 H Intake Visit Reasons: Abdominal wall mass, persistent seroma, US results Intake Note: Patient is seen in office for ultrasound results, following abdominal wall mass. Pt c/o: wound is completely closed, continued pain in the abdomen, here for results CT:03/20/23 Director Workers Compensation Required: No Accompanied by: Self / Same As Patient Allergies sertraline [From ZOLOFT] Allergy (Severe, Verified 03/23/23 09:06) GI UPSET/LETHARGY/CONFUSION atorvastatin [ATORVASTATIN] Allergy (Intermediate, Verified 03/23/23 09:06) SEVER MUSCLE/FOOT PAIN oxycodone [OXYCODONE] Allergy (Intermediate, Verified 03/23/23 09:06) GI UPSET,CONFUSION cefaclor [From Ceclor] Allergy (Mild, Verified 03/23/23 09:06) DYSPNEA Penicillins Allergy (Mild, Verified 03/23/23 09:06) DYSPNEA vancomycin [Vancomycin] Allergy (Mild, Verified 03/23/23 09:06) ITCHING acetaminophen [Tylenol-Codeine #3] Allergy (Unknown, Verified 03/23/23 09:06) Unknown penicillin V Allergy (Unknown, Verified 03/23/23 09:06) unknown Medication List - Last Reconciled 03/23/23 by Sp Dubois MD albuterol sulfate 90 mcg/actuation inhalation PRN cyanocobalamin (vitamin B-12) 1,000 mcg IM docusate sodium 100 mg PO BID fluticasone propionate 110 mcg/actuation (Flovent HFA) inhalation hydrocodone-acetaminophen 5-300 mg 1 tab PO Q6H PRN hydrocodone-acetaminophen 5-300 mg 1 tab PO BID PRN hydrocodone-acetaminophen 5-325 mg 1 tab PO BID PRN ibuprofen 800 mg PO TID levothyroxine 50 mcg PO DAILY mometasone 0.1% appl topical DAILY naloxone 4 mg/actuation 0 sprays intranasal nystatin 400,000 units (4 mL) PO QID 7 days omeprazole 20 mg PO DAILY paroxetine HCl 10 mg PO DAILY dczoteewz-nflgbc-whugiwbf-scop 16.2-0.1037 -0.0194 mg (Phenohytro) 1 tab PO TID polyethylene glycol 3350 17 grams PO DAILY HPI HPI Comments History of Present Illness Details Patient returns for follow-up wound check after recent ultrasound. Ultrasound shows postoperative changes however abscess and hernia could not be ruled out by ultrasound. Patient reports some tenderness in the incision area but denies any redness or discharge. She denies fever or chills. [facility] Medical History Abdominal wall mass Female bladder prolapse B12 deficiency Depression Hyperlipidemia Osteopenia Personal history of nicotine dependence Obesity Thyroid nodule Hypothyroidism (~2014) Surgical History History of incisional hernia repair (12/11/22) Previous section Hx of laparoscopy History of partial hysterectomy (05/2022) History of colonoscopy History of foot surgery Hx of mammogram Hx of cholecystectomy Hx of tonsillectomy History of esophagogastroduodenoscopy (EGD) Family History Father Heart disease Mother Cardiomyopathy Goiter Maternal Grandfather Stomach cancer Social History Alcohol intake: current Alcohol intake frequency: holidays/special occasions only Patient Tobacco Use Status: Current everyday Tobacco user Tobacco use type: Cigarette Cigarettes Per Day: 10 Years Smoked: 40 - onset 22, 1.5-2ppd x 40yrs, 60+PYH Physical Exam Vital Signs: Last Vital Signs Pulse 107 H 03/23/23 09:04 BP 143/79 H 03/23/23 09:04 BMI result Body Mass Index 33.1 Const General: no acute distress Nutritional Appearance: well nourished Orientation/consciousness: patient oriented x3 Resp Effort & Inspection: normal respiratory effort GI Other: Incision is well healed with no redness or discharge appreciated. No hernia noted with Valsalva maneuvers. Area of swelling in the right upper quadrant is smaller from previous examination. No other significant changes are identified to indicate abscess or hernia recurrence. Neuro General: patient oriented x3 Assessment & Plan Assessment & Plan (1) Incisional hernia without obstruction or gangrene: Code(s): K43.2 - Incisional hernia without obstruction or gangrene Plan Patient returns for follow-up examination of her incisional hernia wounds. The wounds are clean, dry, and intact without redness or discharge. There is no evidence of hernia recurrence or abscess. She may resume normal activity. I have asked her to return approximately 2 weeks for a final postoperative visit. Coding Level of Care Code Global (90870) Diagnoses Incisional hernia without obstruction or gangrene K43.2
== END 2023-03-23 09:18 | disposition home or self-care (01) ==
PROVIDERS: PCP Internal Medicine Geriatric Medicine; Visit Provider Surgery
DX: K43.2 Incisional hernia without obstruction or gangrene (principal)
CPT/HCPCS: 99213

== ENCOUNTER → 2023-03-23 08:34 | Outpatient (BNVA) | payer MEDICARE, MEDICAID, SELFPAY | PROVIDERS: PCP Internal Medicine Geriatric Medicine; Visit Provider Surgery | DX: K43.2 Incisional hernia without obstruction or gangrene (principal) | CPT/HCPCS: 99212 ==

== ENCOUNTER → 2023-03-26 11:22 | Outpatient (BNVA) | payer MEDICARE, MEDICAID, SELFPAY | PROVIDERS: PCP Internal Medicine Geriatric Medicine; Visit Provider Surgery | DX: R22.2 Localized swelling, mass and lump, trunk (principal); L03.90 Cellulitis, unspecified | CPT/HCPCS: 99211 ==

== ENCOUNTER → 2023-04-06 09:49 | Outpatient (BNVA) | payer MEDICARE, MEDICAID, SELFPAY | PROVIDERS: PCP Internal Medicine Geriatric Medicine; Visit Provider Surgery | DX: Z48.00 Encounter for change or removal of nonsurgical wound dressing (principal); Z87.19 Personal history of other diseases of the digestive system | CPT/HCPCS: 99212 ==

== ENCOUNTER → 2023-04-06 09:49 | Outpatient (AMB) | payer MEDICARE, MEDICAID, SELFPAY ==
--- NOTE | 2023-03-26 13:00 | A.OFFVIS_ITS ---
Intake Intake Visit Reasons: Abdominal wall mass, persistent seroma, US results Allergies sertraline [From ZOLOFT] Allergy (Severe, Verified 03/23/23 09:06) GI UPSET/LETHARGY/CONFUSION atorvastatin [ATORVASTATIN] Allergy (Intermediate, Verified 03/23/23 09:06) SEVER MUSCLE/FOOT PAIN oxycodone [OXYCODONE] Allergy (Intermediate, Verified 03/23/23 09:06) GI UPSET,CONFUSION cefaclor [From Ceclor] Allergy (Mild, Verified 03/23/23 09:06) DYSPNEA Penicillins Allergy (Mild, Verified 03/23/23 09:06) DYSPNEA vancomycin [Vancomycin] Allergy (Mild, Verified 03/23/23 09:06) ITCHING acetaminophen [Tylenol-Codeine #3] Allergy (Unknown, Verified 03/23/23 09:06) Unknown penicillin V Allergy (Unknown, Verified 03/23/23 09:06) unknown metronidazole [From Flagyl] Adverse Reaction (Unknown, Unverified 03/27/23 08:51) Unknown Bactrim Allergy (Unknown, Uncoded 03/27/23 08:51) Unknown HPI HPI Comments History of Present Illness Details Patient called over the weekend because of the onset of drainage once again from the incision. Drainage started on Sunday and continued through Sunday. She presents today for wound check. [facility] Medical History Abdominal wall mass Female bladder prolapse B12 deficiency Depression Hyperlipidemia Osteopenia Personal history of nicotine dependence Obesity Thyroid nodule Hypothyroidism (~2014) Surgical History History of incisional hernia repair (12/11/22) Previous section Hx of laparoscopy History of partial hysterectomy (05/2022) History of colonoscopy History of foot surgery Hx of mammogram Hx of cholecystectomy Hx of tonsillectomy History of esophagogastroduodenoscopy (EGD) Family History Father Heart disease Mother Cardiomyopathy Goiter Maternal Grandfather Stomach cancer Social History Alcohol intake: current Alcohol intake frequency: holidays/special occasions only Patient Tobacco Use Status: Current everyday Tobacco user Tobacco use type: Cigarette Cigarettes Per Day: 10 Years Smoked: 40 - onset 22, 1.5-2ppd x 38yrs, 60+PYH Physical Exam Const General: anxious Resp Effort & Inspection: normal respiratory effort GI Other: small opening noted lateral to the umbilicus. Light pressure on the right upper quadrant produces a small amount of discharge. No surrounding erythema appreciated. Wounds dressed with dry sterile dressing and ABD. Assessment & Plan Assessment & Plan (1) Abdominal wall mass: Code(s): R22.2 - Localized swelling, mass and lump, trunk Plan Persistent discharge from umbilical incision. Continue local wound care. Will restart antibiotics. Patient initially prescribed Bactrim but she reports that her mother had an allergy and she refuses to take this medication. She also refuses to take Flagyl. Prescription for doxycycline 100 mg p.o. b.i.d. x7 days prescribed. Follow-up in 1 week. Medications: New sulfamethoxazole-trimethoprim 800-160 mg (Bactrim DS) 1 tab PO Q12H 14 tabs 0RF R22.2 - Localized swelling, mass and lump, trunk Coding Level of Care Code Global (44310) Diagnoses Abdominal wall mass R22.2
== END ==
PROVIDERS: PCP Internal Medicine Geriatric Medicine; Visit Provider Surgery
DX: R22.2 Localized swelling, mass and lump, trunk (principal)
CPT/HCPCS: 99212

== ENCOUNTER → 2023-04-06 09:49 | Outpatient (BNVA) | payer MEDICARE, MEDICAID, SELFPAY | PROVIDERS: PCP Internal Medicine Geriatric Medicine; Visit Provider Surgery | DX: R22.2 Localized swelling, mass and lump, trunk (principal) | CPT/HCPCS: 99212 ==

== ENCOUNTER 2023-04-06 10:11 | Outpatient (AMB) | payer MEDICARE, MEDICAID, SELFPAY ==
[2023-04-06 10:10] VITALS: BP 123/86; PULSE 88; BMI 33.1
--- NOTE | 2023-04-06 10:10 | A.OFFVIS_ITS ---
Intake Vital Signs 04/06/23 10:10 Height 5 ft 6 in Weight 205 lb BMI 33.1 BP 123/86 Blood Pressure Location Lt brachial Position Sitting Pulse 88 Intake Visit Reasons: Abdominal wall mass, persistent seroma, US results Intake Note: Patient is seen in office for abdominal wall mass, wound check. Patient c/o: per pt on 03/26/23 wound started to drain, lasted for a week and since hasn't had any discharge Operations Advisor Required: No Accompanied by: Self / Same As Patient Allergies sertraline [From ZOLOFT] Allergy (Severe, Verified 04/06/23 10:13) GI UPSET/LETHARGY/CONFUSION atorvastatin [ATORVASTATIN] Allergy (Intermediate, Verified 04/06/23 10:13) SEVER MUSCLE/FOOT PAIN oxycodone [OXYCODONE] Allergy (Intermediate, Verified 04/06/23 10:13) GI UPSET,CONFUSION cefaclor [From Ceclor] Allergy (Mild, Verified 04/06/23 10:13) DYSPNEA Penicillins Allergy (Mild, Verified 04/06/23 10:13) DYSPNEA vancomycin [Vancomycin] Allergy (Mild, Verified 04/06/23 10:13) ITCHING acetaminophen [Tylenol-Codeine #3] Allergy (Unknown, Verified 04/06/23 10:13) Unknown penicillin V Allergy (Unknown, Verified 04/06/23 10:13) unknown metronidazole [From Flagyl] Adverse Reaction (Unknown, Unverified 04/06/23 10:13) Unknown Bactrim Allergy (Unknown, Uncoded 04/06/23 10:13) Unknown HPI HPI Comments History of Present Illness Details Patient returns for follow-up examination. She reports discharge for approximately 1 week but no further discharge since Sunday (6 days). She denies any significant pain but does have a little soreness in the incision. She continues to apply a sterile dressing to the wound. She denies any fever or chills. [facility] Medical History Abdominal wall mass Female bladder prolapse B12 deficiency Depression Hyperlipidemia Osteopenia Personal history of nicotine dependence Obesity Thyroid nodule Hypothyroidism (~2014) Surgical History History of incisional hernia repair (12/11/22) Previous section Hx of laparoscopy History of partial hysterectomy (05/2022) History of colonoscopy History of foot surgery Hx of mammogram Hx of cholecystectomy Hx of tonsillectomy History of esophagogastroduodenoscopy (EGD) Family History Father Heart disease Mother Cardiomyopathy Goiter Maternal Grandfather Stomach cancer Social History Alcohol intake: current Alcohol intake frequency: holidays/special occasions only Patient Tobacco Use Status: Current everyday Tobacco user Tobacco use type: Cigarette Cigarettes Per Day: 10 Years Smoked: 40 - onset 22, 1.5-2ppd x 40yrs, 60+PYH Physical Exam Vital Signs: Last Vital Signs Pulse 88 04/06/23 10:10 BP 123/86 04/06/23 10:10 BMI result Body Mass Index 33.1 Const General: comfortable Nutritional Appearance: well nourished GI Other: Incision is now healed with no evidence of discharge. There are 2 areas of thickening in the subcutaneous tissue in the right upper quadrant with no overlying redness and no fluctuance to palpation. No discharge could be expressed from the incision. Sterile dressing was reapplied. Skin Other: Warm, dry, no rashes Assessment & Plan Assessment & Plan (1) Incisional hernia without obstruction or gangrene: Code(s): K43.2 - Incisional hernia without obstruction or gangrene Plan Patient is wounds are healed for the past 6 days. She will continue to apply a sterile dressing for protection and return approximately 2 weeks for wound check. Coding Level of Care Code Global (93036) Diagnoses Incisional hernia without obstruction or gangrene K43.2
== END 2023-04-06 10:17 | disposition home or self-care (01) ==
PROVIDERS: PCP Internal Medicine Geriatric Medicine; Visit Provider Surgery
DX: K43.2 Incisional hernia without obstruction or gangrene (principal); Z09 Encounter for follow-up examination after completed treatment for conditions other than malignant neoplasm
CPT/HCPCS: 99212

== ENCOUNTER 2023-04-10 10:40 | Outpatient (AMB) | payer MEDICARE, MEDICAID, SELFPAY ==
--- NOTE | 2023-04-10 10:44 | MHC.OFFVIS ---
Intake Vital Signs 04/10/23 10:49 Height 5 ft 6 in Weight 204 lb BMI 32.9 BP 133/84 Blood Pressure Location Lt brachial Position Sitting Pulse 101 H Intake Visit Reasons: wound check, redness Intake Note: Patient is seen in office for wound check, following post hernia repair. Pt c/o: pt states on Sunday she was in increase pain and notice the areas was red and swollen Inspector Metal Can Required: No Accompanied by: Self / Same As Patient Allergies sertraline [From ZOLOFT] Allergy (Severe, Verified 04/10/23 10:49) GI UPSET/LETHARGY/CONFUSION atorvastatin [ATORVASTATIN] Allergy (Intermediate, Verified 04/10/23 10:49) SEVER MUSCLE/FOOT PAIN oxycodone [OXYCODONE] Allergy (Intermediate, Verified 04/10/23 10:49) GI UPSET,CONFUSION cefaclor [From Ceclor] Allergy (Mild, Verified 04/10/23 10:49) DYSPNEA Penicillins Allergy (Mild, Verified 04/10/23 10:49) DYSPNEA vancomycin [Vancomycin] Allergy (Mild, Verified 04/10/23 10:49) ITCHING acetaminophen [Tylenol-Codeine #3] Allergy (Unknown, Verified 04/10/23 10:49) Unknown penicillin V Allergy (Unknown, Verified 04/10/23 10:49) unknown metronidazole [From Flagyl] Adverse Reaction (Unknown, Unverified 04/10/23 10:49) Unknown Bactrim Allergy (Unknown, Uncoded 04/10/23 10:49) Unknown Medication List - Last Reconciled 04/10/23 by Sp Dubois MD albuterol sulfate 90 mcg/actuation inhalation PRN cyanocobalamin (vitamin B-12) 1,000 mcg IM docusate sodium 100 mg PO BID doxycycline hyclate 100 mg PO BID 7 days fluticasone propionate 110 mcg/actuation (Flovent HFA) inhalation ibuprofen 800 mg PO TID levothyroxine 50 mcg PO DAILY mometasone 0.1% appl topical DAILY naloxone 4 mg/actuation 0 sprays intranasal nystatin 400,000 units (4 mL) PO QID 7 days omeprazole 20 mg PO DAILY paroxetine HCl 10 mg PO DAILY ifxrffqin-cudczi-jaxzllzd-scop 16.2-0.1037 -0.0194 mg (Phenohytro) 1 tab PO TID polyethylene glycol 3350 17 grams PO DAILY HPI HPI Comments History of Present Illness Details Patient returns for wound check of her abdominal incision. She noted some burning and pinching over the last several days which improved with Motrin and warm compresses. She denies any bleeding or discharge from the incision. She stopped applying a dressing to the wound. She denies any fever or chills. PFS Medical History Abdominal wall mass Female bladder prolapse B12 deficiency Depression Hyperlipidemia Osteopenia Personal history of nicotine dependence Obesity Thyroid nodule Hypothyroidism (~2014) Surgical History History of incisional hernia repair (12/11/22) Previous section Hx of laparoscopy History of partial hysterectomy (05/2022) History of colonoscopy History of foot surgery Hx of mammogram Hx of cholecystectomy Hx of tonsillectomy History of esophagogastroduodenoscopy (EGD) Family History Father Heart disease Mother Cardiomyopathy Goiter Maternal Grandfather Stomach cancer Social History Alcohol intake: current Alcohol intake frequency: holidays/special occasions only Patient Tobacco Use Status: Current everyday Tobacco user Tobacco use type: Cigarette Cigarettes Per Day: 10 Years Smoked: 40 - onset 22, 1.5-2ppd x 40yrs, 60+PYH Physical Exam Const General: comfortable Nutritional Appearance: well nourished GI Other: Incision is now healed with no evidence of discharge. She continues to have 2 areas of thickening which are minimally tender. There is no erythema overlying the skin. There does appear to be slight skin redness from moisture affect in the umbilical skin. No evidence of an underlying abscess by examination. Skin Other: Warm, dry, no rashes Assessment & Plan Assessment & Plan (1) Abdominal wall mass: Code(s): R22.2 - Localized swelling, mass and lump, trunk Plan Will restart antibiotics for 10 days. Patient to return in 1 week if not improved. Medications: Refilled doxycycline hyclate 100 mg PO BID 20 tabs 0RF 7 days L03.90 - Cellulitis, unspecified, R22.2 - Localized swelling, mass and lump, trunk Coding Level of Care Code Global (87434) Diagnoses Abdominal wall mass R22.2
[2023-04-10 10:49] VITALS: BP 133/84; PULSE 101; BMI 32.9
== END 2023-04-10 11:20 | disposition home or self-care (01) ==
PROVIDERS: PCP Internal Medicine Geriatric Medicine; Visit Provider Surgery
DX: R22.2 Localized swelling, mass and lump, trunk (principal)
CPT/HCPCS: 99212

== ENCOUNTER → 2023-04-10 10:40 | Outpatient (BNVA) | payer MEDICARE, MEDICAID, SELFPAY | PROVIDERS: PCP Internal Medicine Geriatric Medicine; Visit Provider Surgery | DX: Z48.1 Encounter for planned postprocedural wound closure (principal); Z87.19 Personal history of other diseases of the digestive system; Z98.890 Other specified postprocedural states | CPT/HCPCS: 99212 ==

== ENCOUNTER 2023-04-23 10:31 | Outpatient (AMB) | payer MEDICARE, MEDICAID, SELFPAY ==
--- NOTE | 2023-04-23 10:41 | MHC.OFFVIS ---
Intake Vital Signs 04/23/23 10:45 Height 5 ft 6 in Weight 204 lb 8 oz BMI 33.0 BP 130/80 Blood Pressure Location Lt brachial Position Sitting Intake Visit Reasons: abdominal wall mass, discharge Intake Note: Patient is seen in office for abdominal mass, wound check. Pt c/o: admits to bloody discharge in the area since yesterday, change dressing frequently, pain has gone down since yesterday Addiction Treatment Counselor Required: No Accompanied by: Self / Same As Patient Allergies sertraline [From ZOLOFT] Allergy (Severe, Verified 04/23/23 10:44) GI UPSET/LETHARGY/CONFUSION atorvastatin [ATORVASTATIN] Allergy (Intermediate, Verified 04/23/23 10:44) SEVER MUSCLE/FOOT PAIN oxycodone [OXYCODONE] Allergy (Intermediate, Verified 04/23/23 10:44) GI UPSET,CONFUSION cefaclor [From Ceclor] Allergy (Mild, Verified 04/23/23 10:44) DYSPNEA Penicillins Allergy (Mild, Verified 04/23/23 10:44) DYSPNEA vancomycin [Vancomycin] Allergy (Mild, Verified 04/23/23 10:44) ITCHING acetaminophen [Tylenol-Codeine #3] Allergy (Unknown, Verified 04/23/23 10:44) Unknown penicillin V Allergy (Unknown, Verified 04/23/23 10:44) unknown metronidazole [From Flagyl] Adverse Reaction (Unknown, Unverified 04/23/23 10:44) Unknown Bactrim Allergy (Unknown, Uncoded 04/23/23 10:44) Unknown Medication List - Last Reconciled 04/23/23 by Sp Dubois MD albuterol sulfate 90 mcg/actuation inhalation PRN cyanocobalamin (vitamin B-12) 1,000 mcg IM docusate sodium 100 mg PO BID doxycycline hyclate 100 mg PO BID 7 days fluticasone propionate 110 mcg/actuation (Flovent HFA) inhalation ibuprofen 800 mg PO TID levothyroxine 50 mcg PO DAILY mometasone 0.1% appl topical DAILY naloxone 4 mg/actuation 0 sprays intranasal nystatin 400,000 units (4 mL) PO QID 7 days omeprazole 20 mg PO DAILY paroxetine HCl 10 mg PO DAILY jebshlwtn-ssbrbp-exbschwm-scop 16.2-0.1037 -0.0194 mg (Phenohytro) 1 tab PO TID polyethylene glycol 3350 17 grams PO DAILY HPI HPI Comments History of Present Illness Details Patient returns after developing a sudden onset of discharge from the midline incision of mainly bloody fluid. She reports an area of swelling in the right upper quadrant which had increased in size prior to the development of this discharge. She denied any foul smell or purulent output. She continues to have some bloody discharge today but does feel that the lump has decreased in size in the right upper quadrant. She has had several episodes of the Wound healing and subsequently draining. She reports developing a yeast infection after her last course of antibiotics. This was treated by her food counselor. [facility] Medical History Abdominal wall mass Female bladder prolapse B12 deficiency Depression Hyperlipidemia Osteopenia Personal history of nicotine dependence Obesity Thyroid nodule Hypothyroidism (~2014) Surgical History History of incisional hernia repair (12/11/22) Previous section Hx of laparoscopy History of partial hysterectomy (05/2022) History of colonoscopy History of foot surgery Hx of mammogram Hx of cholecystectomy Hx of tonsillectomy History of esophagogastroduodenoscopy (EGD) Family History Father Heart disease Mother Cardiomyopathy Goiter Maternal Grandfather Stomach cancer Social History Alcohol intake: current Alcohol intake frequency: holidays/special occasions only Patient Tobacco Use Status: Current everyday Tobacco user Tobacco use type: Cigarette Cigarettes Per Day: 10 Years Smoked: 40 - onset 22, 1.5-2ppd x 40yrs, 60+PYH Physical Exam Vital Signs: Last Vital Signs BP 130/80 04/23/23 10:45 BMI result Body Mass Index 33.0 Const General: comfortable Nutritional Appearance: well nourished GI Other: Small opening in the midline incision is noted lateral to the umbilicus. Pressure on the right upper quadrant does produce some thick bloody fluid suggestive of old blood. No erythema is noted. An area of firmness still felt in the right upper quadrant as noted below. This appears to be a seroma or hematoma collection. Abdomen image: 1. Site of seroma/hematoma Skin Other: Warm, dry, no rashes, no erythema Assessment & Plan Assessment & Plan (1) Abdominal wall seroma: Code(s): S30.1XXA - Contusion of abdominal wall, initial encounter Qualifiers: Encounter type: subsequent encounter Qualified Code(s): S30.1XXD - Contusion of abdominal wall, subsequent encounter Plan 62-year-old female patient with a previous history of a large incisional hernia repair now with persistent seroma in the right upper quadrant with occasional discharge from the incision. This has erupted several times in the past several months with intermittent healing of the incision. We discussed options including incision of the persistent seroma in the right upper quadrant with washout and possible drain placement. After discussion of the procedure, risks, and alternatives, the patient gives her consent for a drainage of right upper quadrant seroma. This will be scheduled as a short-stay surgery. Coding Level of Care Code Est Pt Level 4 (19537) Diagnoses Abdominal wall seroma, subsequent encounter S30.1XXD Encounter type: subsequent encounter
[2023-04-23 10:45] VITALS: BP 130/80; BMI 33.0
== END 2023-04-23 11:16 | disposition home or self-care (01) ==
PROVIDERS: PCP Internal Medicine Geriatric Medicine; Visit Provider Surgery
DX: L76.34 Postprocedural seroma of skin and subcutaneous tissue following other procedure (principal)
CPT/HCPCS: 99214

== ENCOUNTER → 2023-04-23 10:31 | Outpatient (BNVA) | payer MEDICARE, MEDICAID, SELFPAY | PROVIDERS: PCP Internal Medicine Geriatric Medicine; Visit Provider Surgery | DX: S30.1XXD Contusion of abdominal wall, subsequent encounter (principal) | CPT/HCPCS: 99212 ==

== ENCOUNTER 2023-04-30 07:00 | Day surgery (SDC) | payer MEDICARE, MEDICAID, SELFPAY ==
[2023-04-30] VITALS (7 sets, daily range): BP systolic 114–130; BP diastolic 63–86; PULSE 61–73; RESP 16; TEMP 36.2–36.4; O2SAT 96–98; BMI 33.4
[2023-04-30] MEDS: Lactated Ringers 1,000 ML 100 ML IVCONT (07:39)
--- NOTE | 2023-04-30 08:15 | P.CONAN_ITS ---
[facility] Active Problems Active Problems: All Active Problems (Updated 04/23/23 @ 11:52 by Sp Dubois MD) Abdominal wall seroma (Acute) Abdominal wall mass (Acute) Oral candidiasis (Acute) Irritable bowel syndrome with diarrhea (Acute) Acute diarrhea (Acute) Incisional hernia without obstruction or gangrene (Acute) Umbilical hernia (Acute) Dysphagia (Acute) GERD (gastroesophageal reflux disease) (Acute) Bile salt-induced diarrhea (Acute) Personal history of nicotine dependence (Acute) Obesity (Acute) Thyroid nodule (Acute) Hypothyroidism (Acute ~2014) Past Medical History Medical History Abdominal wall mass Female bladder prolapse B12 deficiency Depression Hyperlipidemia Osteopenia Personal history of nicotine dependence Obesity Thyroid nodule Hypothyroidism (~2014) Family History Family History Father Heart disease Mother Cardiomyopathy Goiter Maternal Grandfather Stomach cancer Family history of problems with anesthesia: No Surgical History Surgical History History of incisional hernia repair (12/11/22) Previous section Hx of laparoscopy History of partial hysterectomy (05/2022) History of colonoscopy History of foot surgery Hx of mammogram Hx of cholecystectomy Hx of tonsillectomy History of esophagogastroduodenoscopy (EGD) History of Problems with Anesthesia: No Social History Social History Alcohol intake: current Alcohol intake frequency: does not drink Patient Tobacco Use Status: Current everyday Tobacco user Tobacco use type: Cigarette Cigarettes Per Day: 10 Years Smoked: 40 - onset 22, 1.5-2ppd x 40yrs, 60+PYH Second Hand Smoke Exposure: No Meds Allergies Allergy/AdvReac Type Severity Reaction Status Date / Time sertraline [From ZOLOFT] Allergy Severe GI Verified 04/23/23 10:44 UPSET/LETHARGY/CONFUSION atorvastatin [ATORVASTATIN] Allergy Intermediate SEVER Verified 04/23/23 10:44 MUSCLE/FOOT PAIN oxycodone [OXYCODONE] Allergy Intermediate GI Verified 04/23/23 10:44 UPSET,CONFUSION cefaclor [From Ceclor] Allergy Mild DYSPNEA Verified 04/23/23 10:44 Penicillins Allergy Mild DYSPNEA Verified 04/23/23 10:44 vancomycin [Vancomycin] Allergy Mild ITCHING Verified 04/23/23 10:44 acetaminophen Allergy Unknown Unknown Verified 04/23/23 10:44 [Tylenol-Codeine #3] penicillin V Allergy Unknown unknown Verified 04/23/23 10:44 metronidazole [From Flagyl] AdvReac Unknown Unknown Unverified 04/23/23 10:44 Bactrim Allergy Unknown Unknown Uncoded 04/23/23 10:44 Active Medications: Current Medications Fentanyl (Fentanyl Citrate/Pf 100 Mcg/2 Ml Vial) 25 mcg IVPUSH Q5M PRN; Protocol PRN Reason: Pain, Moderate(Pain Scale 4-6) Stop: 04/30/23 14:14 Hydromorphone HCl (Hydromorphone Hcl 0.5 Mg/0.5 Ml Syringe) 0.5 mg IVPUSH Q5M PRN; Protocol PRN Reason: Pain, Severe (Pain Scale 7-10) Stop: 04/30/23 14:14 Lactated Ringer's (Lr) 1,000 mls @ 100 mls/hr IVCONT .Q10H RHIANNA Last Admin: 04/30/23 07:39 Dose: 100 mls/hr Home Medications Medication Instructions Recorded Confirmed Last Taken Type albuterol sulfate 90 mcg/actuation inhalation PRN Shortness Of Breath 03/31/20 04/23/23 Unknown History aerosol inhaler Or Wheezing cyanocobalamin (vitamin B-12) 1,000 mcg IM 03/31/20 04/23/23 Unknown History 1,000 mcg/mL injection solution mometasone 0.1 % topical cream appl topical DAILY 03/31/20 04/23/23 Unknown History paroxetine HCl 10 mg tablet 10 mg PO DAILY 03/31/20 04/23/23 Unknown History polyethylene glycol 3350 17 17 g PO DAILY 03/31/20 04/23/23 Unknown History gram/dose oral powder levothyroxine 50 mcg tablet 50 mcg PO DAILY 06/14/20 04/23/23 12/11/22 05:00 History naloxone 4 mg/actuation nasal spray 0 spray intranasal 04/04/22 04/23/23 Unknown History fluticasone propionate 110 inhalation 11/01/22 04/23/23 Unknown History mcg/actuation HFA aerosol inhaler (Flovent HFA) hloivrpfc-atddieyaw-ibolkqpp-scop 1 tab PO TID 12/01/22 04/23/23 Unknown History 16.2 mg-0.1037 mg-0.0194 mg tablet (Phenohytro) docusate sodium 100 mg capsule 100 mg PO BID 12/11/22 04/23/23 Unknown History ibuprofen 800 mg tablet 800 mg PO TID 03/12/23 04/23/23 Unknown History omeprazole 20 mg capsule,delayed 20 mg PO DAILY 03/12/23 04/23/23 Unknown History release Exam Height,Weight and Vital Signs: Height 5 ft 6 in Weight 93.95 kg Last Vital Signs Temp 97.6 F 04/30/23 07:38 Pulse 68 04/30/23 07:38 Resp 16 04/30/23 07:38 BP 114/71 04/30/23 07:38 Pulse Ox 97 04/30/23 07:38 O2 Del Method Room Air 04/30/23 07:38 Airway Mallampati Class: II TM Dist: >3cm Neck ROM: Full Denture: Upper and Lower Loose/Missing/Broken Teeth: No Heart: rrr Lungs: cta b/l Assessment and Plan Assessment Anesthesia Assessment: Anesthesia Plan Discussed, Smoking Cess. Discussed and Chart Reviewed Final Anesthetic Review Family History of Problems with Anesthesia: No History of Problems with Anesthesia: No NPO: Yes ASA Class: III Final Preanesthetic Review: No Changes in Pt Med Stat, Meds/Allgs Chart Reviewed, Consent Obtained/Reviewed and Anes Risks/Benef Reviewed Patient Risk: Intermediate Procedure Risk: Low Anesthetic Plan Anesthetic Plan: MAC: Disposition: Standard PACU
--- NOTE | 2023-04-30 08:26 | MHC.SHP ---
Pre-Procedural Eval Section A - 24 Hr Update-Section A only Date of Service: 04/30/23 The patient is an INPATIENT: No Changes since office visit: Yes Patient answered all questions; No Cold of Flu in the past 2 weeks, No New Medical Problems and No Changes in Medication The patient has been examined within 24 hours of the surgical procedure. The History & Physical has been completed within 30 days and I have reviewed it.: Yes Section B - Complete if H&P > 30 days Chief Complaint: Contusion of abdominal wall, subsequent encounter Allergies: Allergies Allergy/AdvReac Type Severity Reaction Status Date / Time sertraline [From ZOLOFT] Allergy Severe GI Verified 04/23/23 10:44 UPSET/LETHARGY/CONFUSION atorvastatin [ATORVASTATIN] Allergy Intermediate SEVER Verified 04/23/23 10:44 MUSCLE/FOOT PAIN oxycodone [OXYCODONE] Allergy Intermediate GI Verified 04/23/23 10:44 UPSET,CONFUSION cefaclor [From Ceclor] Allergy Mild DYSPNEA Verified 04/23/23 10:44 Penicillins Allergy Mild DYSPNEA Verified 04/23/23 10:44 vancomycin [Vancomycin] Allergy Mild ITCHING Verified 04/23/23 10:44 acetaminophen Allergy Unknown Unknown Verified 04/23/23 10:44 [Tylenol-Codeine #3] penicillin V Allergy Unknown unknown Verified 04/23/23 10:44 metronidazole [From Flagyl] AdvReac Unknown Unknown Unverified 04/23/23 10:44 Bactrim Allergy Unknown Unknown Uncoded 04/23/23 10:44 Plan Diagnosis/Plan: Unchanged I have reviewed the history and physical and performed a pertinent physical examination on my patient. No changes have occurred unless specified. Time Spent With Patient Time: Total time managing care of this patient today ____ minutes.
[2023-04-30] MEDS: fentaNYL citrate/PF 100 MCG/2 ML VIAL 25 MCG IVPUSH ×2 (10:15→10:21)
[2023-04-30] MEDS: HYDROcodone Bit/Acetam 5/325 TABLET 1 TAB PO (10:55)
--- NOTE | 2023-04-30 13:24 | P.OP_ITS ---
Operative Note Operative Note Date of Service: 04/30/23 Narrative: Preoperative diagnosis: Seroma right upper quadrant following hernia repair Postoperative diagnosis: Same Procedure: Drainage/excision of seroma upper quadrant Surgeon: Sp Dubois MD Milieu Counselor: Leola Chan PA-C Anesthesia: Mac Indications for procedure: 62-year-old female patient with a previous history of a large incisional hernia status repair with mesh. Patient has had intermittent drainage from the incision and was found to have have a seroma located in the right upper quadrant. She presents today for excision of this seroma and drainage track. Operative findings: Seroma noted in the right upper quadrant measuring approximately 4 cm in diameter excised up to the skin incision in the midline. Collection did not extend to the mesh repair. Specimen: Wound culture, seroma wall right upper quadrant Estimated blood loss: 5 mL Complications: None Procedure details: Patient was brought to the OR placed in a supine position. After administering light sedation the patient's abdomen was prepped with Betadine and draped in a sterile fashion. Local anesthesia was infiltrated around the palpable mass in the right upper quadrant. An incision in a transverse fashion was then made over the seroma. This was carried out through subcutaneous tissue up to the seroma collection. Cultures were obtained of the fluid. The surrounding inhalation tissue that made up the seroma was then excised using electrocautery down to normal tissue. The excision was also extended to the midline to include the midline incision. Counter incision in the midline was then made to include this tract. Hemostasis was assured using electrocautery. Deep subcutaneous tissue and dermis were then reapproximated using interrupted 3-0 Polysorb sutures. Skin was closed using interrupted 3-0 nylon sutures. Sterile dressings were then applied. The patient tolerated the procedure well. She was transferred to PACU in stable condition.
== END 2023-04-30 11:28 | disposition home or self-care (01) ==
PROVIDERS: PCP Internal Medicine Geriatric Medicine; Visit Provider Surgery
PROC: (CPT 22903; principal; 2023-04-30 08:40)
DX: K91.872 Postprocedural seroma of a digestive system organ or structure following a digestive system procedure (principal); S30.1XXA Contusion of abdominal wall, initial encounter; Y83.8 Other surgical procedures as the cause of abnormal reaction of the patient, or of later complication, without mention of misadventure at the time of the procedure; Y92.9 Unspecified place or not applicable; E78.5 Hyperlipidemia, unspecified; E03.9 Hypothyroidism, unspecified; M85.80 Other specified disorders of bone density and structure, unspecified site; N81.10 Cystocele, unspecified; E66.9 Obesity, unspecified; Z68.33 Body mass index [BMI] 33.0-33.9, adult; F32.A Depression, unspecified; Z79.1 Long term (current) use of non-steroidal anti-inflammatories (NSAID); Z79.51 Long term (current) use of inhaled steroids; Z79.899 Other long term (current) drug therapy; Z88.8 Allergy status to other drugs, medicaments and biological substances; Z88.0 Allergy status to penicillin; Z88.1 Allergy status to other antibiotic agents; Z88.5 Allergy status to narcotic agent; Z90.710 Acquired absence of both cervix and uterus; Z98.890 Other specified postprocedural states; Z90.49 Acquired absence of other specified parts of digestive tract; F17.210 Nicotine dependence, cigarettes, uncomplicated
CPT/HCPCS: 22903; 87070; 87073; 87076; 87205; 88305; J2250; J2704; J2795; J3010

== ENCOUNTER → 2023-04-30 07:00 | Outpatient (BNV) | payer MEDICARE, MEDICAID, SELFPAY | PROVIDERS: PCP Internal Medicine Geriatric Medicine; Visit Provider Surgery | DX: L76.32 Postprocedural hematoma of skin and subcutaneous tissue following other procedure (principal) | CPT/HCPCS: 10140 ==

== ENCOUNTER → 2023-05-03 10:26 | Outpatient (BNVA) | payer MEDICARE, MEDICAID, SELFPAY | PROVIDERS: PCP Internal Medicine Geriatric Medicine; Visit Provider Surgery ==

== ENCOUNTER 2023-05-07 12:57 | Outpatient (AMB) | payer MEDICARE, MEDICAID, SELFPAY ==
--- NOTE | 2023-05-07 13:02 | A.OFFVIS_ITS ---
Intake Vital Signs 05/07/23 13:09 Height 5 ft 6 in Weight 206 lb 2.115 oz BMI 33.3 Pulse 70 Intake Visit Reasons: s/p abd wound wall fluid collection ( Naima pt) Intake Note: Patient is seen in office for wound check, post excision abdominal wound. Pt c/o: admits to pain, bloody discharge, redness, nausea, diarrhea Ios Developer Required: No Accompanied by: Family/Other Allergies sertraline [From ZOLOFT] Allergy (Severe, Verified 05/07/23 13:09) GI UPSET/LETHARGY/CONFUSION atorvastatin [ATORVASTATIN] Allergy (Intermediate, Verified 05/07/23 13:09) SEVER MUSCLE/FOOT PAIN oxycodone [OXYCODONE] Allergy (Intermediate, Verified 05/07/23 13:09) GI UPSET,CONFUSION cefaclor [From Ceclor] Allergy (Mild, Verified 05/07/23 13:09) DYSPNEA Penicillins Allergy (Mild, Verified 05/07/23 13:09) DYSPNEA vancomycin [Vancomycin] Allergy (Mild, Verified 05/07/23 13:09) ITCHING acetaminophen [Tylenol-Codeine #3] Allergy (Unknown, Verified 05/07/23 13:09) Unknown penicillin V Allergy (Unknown, Verified 05/07/23 13:09) unknown metronidazole [From Flagyl] Adverse Reaction (Unknown, Unverified 05/07/23 13:09) Unknown Bactrim Allergy (Unknown, Uncoded 05/07/23 13:09) Unknown HPI HPI Comments History of Present Illness Details Patient presents with her because of wound /incision issue. She had some staining of her incision and presented here because of concern. She was seen by Rich last week on in the office. Patient presents here for a similar complaint of wound it evaluation COUNTS INCLUDE [facility] BEDS AT THE [facility] Medical History Abdominal wall mass Female bladder prolapse B12 deficiency Depression Hyperlipidemia Osteopenia Personal history of nicotine dependence Obesity Thyroid nodule Hypothyroidism (~2014) Surgical History Hx of abdominal surgery (04/30/23) History of incisional hernia repair (12/11/22) Previous section Hx of laparoscopy History of partial hysterectomy (05/2022) History of colonoscopy History of foot surgery Hx of mammogram Hx of cholecystectomy Hx of tonsillectomy History of esophagogastroduodenoscopy (EGD) Family History Father Heart disease Mother Cardiomyopathy Goiter Maternal Grandfather Stomach cancer Social History Alcohol intake: current Alcohol intake frequency: does not drink Patient Tobacco Use Status: Current everyday Tobacco user Tobacco use type: Cigarette Cigarettes Per Day: 10 Years Smoked: 40 - onset 22, 1.5-2ppd x 40yrs, 60+PYH Second Hand Smoke Exposure: No Physical Exam Vital Signs: Last Vital Signs Pulse 70 05/07/23 13:09 BMI result Body Mass Index 33.3 GI Other: Abdomen is soft. Incision clean dry and intact right mid abdomen sutures present. No evidence of any cellulitis or fluctuance. Assessment & Plan Assessment & Plan (1) Abdominal wall seroma: Code(s): S30.1XXA - Contusion of abdominal wall, initial encounter Qualifiers: Encounter type: subsequent encounter Qualified Code(s): S30.1XXD - Contusion of abdominal wall, subsequent encounter Plan Patient is very anxious and apprehensive. She was reassured at present time there was no acute surgical issue regarding her incision. She is scheduled see Dr. Dubois later in the week. She is to keep that appointment. All questions answered. She was given local instructions, and scheduled as above or follow-up p.r.n.. Coding Level of Care Code New Pt Level 4 (76862) Diagnoses Abdominal wall seroma, subsequent encounter S30.1XXD Encounter type: subsequent encounter
[2023-05-07 13:09] VITALS: PULSE 70; BMI 33.3
== END 2023-05-07 13:22 | disposition home or self-care (01) ==
PROVIDERS: PCP Internal Medicine Geriatric Medicine; Visit Provider Surgery
DX: S30.1XXD Contusion of abdominal wall, subsequent encounter (principal)
CPT/HCPCS: 99204

== ENCOUNTER → 2023-05-07 12:57 | Outpatient (BNVA) | payer MEDICARE, MEDICAID, SELFPAY | PROVIDERS: PCP Internal Medicine Geriatric Medicine; Visit Provider Surgery | DX: S30.1XXD Contusion of abdominal wall, subsequent encounter (principal) | CPT/HCPCS: 99202 ==

== ENCOUNTER 2023-05-08 08:56 | Outpatient (AMB) | payer MEDICARE, MEDICAID, SELFPAY ==
--- NOTE | 2023-05-08 08:57 | A.OFFVIS_ITS ---
Intake Vital Signs 05/08/23 09:05 Height 5 ft 6 in Weight 206 lb 2.115 oz BMI 33.3 BP 127/81 Blood Pressure Location Lt brachial Position Sitting Pulse 107 H Intake Visit Reasons: S/P drainage Abd. wall fluid collection Intake Note: Patient is seen in office for post op assessment post excision of seroma upper quadrant. 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: No Accompanied by: Self / Same As Patient Allergies sertraline [From ZOLOFT] Allergy (Severe, Verified 05/07/23 13:09) GI UPSET/LETHARGY/CONFUSION atorvastatin [ATORVASTATIN] Allergy (Intermediate, Verified 05/07/23 13:09) SEVER MUSCLE/FOOT PAIN oxycodone [OXYCODONE] Allergy (Intermediate, Verified 05/07/23 13:09) GI UPSET,CONFUSION cefaclor [From Ceclor] Allergy (Mild, Verified 05/07/23 13:09) DYSPNEA Penicillins Allergy (Mild, Verified 05/07/23 13:09) DYSPNEA vancomycin [Vancomycin] Allergy (Mild, Verified 05/07/23 13:09) ITCHING acetaminophen [Tylenol-Codeine #3] Allergy (Unknown, Verified 05/07/23 13:09) Unknown penicillin V Allergy (Unknown, Verified 05/07/23 13:09) unknown metronidazole [From Flagyl] Adverse Reaction (Unknown, Unverified 05/07/23 13:09) Unknown Bactrim Allergy (Unknown, Uncoded 05/07/23 13:09) Unknown Medication List - Last Reconciled 05/08/23 by Sp Dubois MD albuterol sulfate 90 mcg/actuation inhalation PRN cyanocobalamin (vitamin B-12) 1,000 mcg IM docusate sodium 100 mg PO BID doxycycline hyclate 100 mg PO BID 7 days fluticasone propionate 110 mcg/actuation (Flovent HFA) inhalation hydrocodone-acetaminophen 5-325 mg 1 tab PO Q6H PRN ibuprofen 800 mg PO TID levothyroxine 50 mcg PO DAILY mometasone 0.1% appl topical DAILY naloxone 4 mg/actuation 0 sprays intranasal nystatin 400,000 units (4 mL) PO QID 7 days omeprazole 20 mg PO DAILY paroxetine HCl 10 mg PO DAILY zavrhojne-drufaq-bbdozbzs-scop 16.2-0.1037 -0.0194 mg (Phenohytro) 1 tab PO TID polyethylene glycol 3350 17 grams PO DAILY HPI HPI Comments History of Present Illness Details Patient returns following excision of a seroma cavity in the right upper quadrant. She noted some discharge yesterday as well as over the weekend which was bloody in color. This was coming from the incision in the right upper quadrant. She feels it has filled fluid again. PFSH Medical History Abdominal wall mass Female bladder prolapse B12 deficiency Depression Hyperlipidemia Osteopenia Personal history of nicotine dependence Obesity Thyroid nodule Hypothyroidism (~2014) Surgical History Hx of abdominal surgery (04/30/23) History of incisional hernia repair (12/11/22) Previous section Hx of laparoscopy History of partial hysterectomy (05/2022) History of colonoscopy History of foot surgery Hx of mammogram Hx of cholecystectomy Hx of tonsillectomy History of esophagogastroduodenoscopy (EGD) Family History Father Heart disease Mother Cardiomyopathy Goiter Maternal Grandfather Stomach cancer Social History Alcohol intake: current Alcohol intake frequency: does not drink Patient Tobacco Use Status: Current everyday Tobacco user Tobacco use type: Cigarette Cigarettes Per Day: 10 Years Smoked: 40 - onset 22, 1.5-2ppd x 40yrs, 60+PYH Second Hand Smoke Exposure: No Physical Exam Vital Signs: Last Vital Signs Pulse 107 H 05/08/23 09:05 BP 127/81 05/08/23 09:05 BMI result Body Mass Index 33.3 GI Other: Incision in the right upper quadrant is clean and intact. Some bloody discharge is noted between the 2nd and 3rd suture from the right suggestive of an underlying hematoma. Two sutures removed and the incision probe with a cotton swab. Large thick bloody collection was drained. This was then packed with Nu Gauze and covered with dry sterile dressings. The patient tolerated this well. Extrem Other: No edema Assessment & Plan Assessment & Plan (1) Abdominal wall seroma: Code(s): S30.1XXA - Contusion of abdominal wall, initial encounter Qualifiers: Encounter type: subsequent encounter Qualified Code(s): S30.1XXD - Contusion of abdominal wall, subsequent encounter Plan Hematoma/seroma of the right upper quadrant status post excision. The incision was opened today and a large hematoma drained. Wounds were then packed and covered with dry sterile dressings. Patient is instructed to follow-up on for wound check. Patient's pain medication was refilled as well. Medications: Refilled hydrocodone-acetaminophen 5-325 mg Partial Fill upon patient request. 1 tab PO Q6H PRN 15 tabs 0RF pain (scale score 7-10) Coding Level of Care Code Global (47636) Diagnoses Abdominal wall seroma, subsequent encounter S30.1XXD Encounter type: subsequent encounter
[2023-05-08 09:05] VITALS: BP 127/81; PULSE 107; BMI 33.3
== END 2023-05-08 09:27 | disposition home or self-care (01) ==
PROVIDERS: PCP Internal Medicine Geriatric Medicine; Visit Provider Surgery
DX: S30.1XXD Contusion of abdominal wall, subsequent encounter (principal)
CPT/HCPCS: 99024

== ENCOUNTER → 2023-05-08 08:56 | Outpatient (BNVA) | payer MEDICARE, MEDICAID, SELFPAY | PROVIDERS: PCP Internal Medicine Geriatric Medicine; Visit Provider Surgery | DX: S30.1XXD Contusion of abdominal wall, subsequent encounter (principal); X58.XXXD Exposure to other specified factors, subsequent encounter; Z79.899 Other long term (current) drug therapy | CPT/HCPCS: 99212 ==

== ENCOUNTER 2023-05-10 09:10 | Outpatient (AMB) | payer MEDICARE, MEDICAID, SELFPAY ==
--- NOTE | 2023-05-10 09:16 | MHC.OFFVIS ---
Intake Vital Signs 05/10/23 09:27 Height 5 ft 6 in Weight 205 lb 0.478 oz BMI 33.1 BP 122/82 Blood Pressure Location Lt brachial Position Sitting Intake Visit Reasons: wound check Intake Note: Patient is seen in office for wound check, following hematoma/seroma of the right upper quadrant status post excision. 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 Accompanied by: Self / Same As Patient Allergies sertraline [From ZOLOFT] Allergy (Severe, Verified 05/10/23 09:28) GI UPSET/LETHARGY/CONFUSION atorvastatin [ATORVASTATIN] Allergy (Intermediate, Verified 05/10/23 09:28) SEVER MUSCLE/FOOT PAIN oxycodone [OXYCODONE] Allergy (Intermediate, Verified 05/10/23 09:28) GI UPSET,CONFUSION cefaclor [From Ceclor] Allergy (Mild, Verified 05/10/23 09:28) DYSPNEA Penicillins Allergy (Mild, Verified 05/10/23 09:28) DYSPNEA vancomycin [Vancomycin] Allergy (Mild, Verified 05/10/23 09:28) ITCHING acetaminophen [Tylenol-Codeine #3] Allergy (Unknown, Verified 05/10/23 09:28) Unknown penicillin V Allergy (Unknown, Verified 05/10/23 09:28) unknown metronidazole [From Flagyl] Adverse Reaction (Unknown, Unverified 05/10/23 09:28) Unknown Bactrim Allergy (Unknown, Uncoded 05/10/23 09:28) Unknown HPI HPI Comments History of Present Illness Details Patient returns following excision of a seroma cavity in the right upper quadrant. She had drainage of the packing is in however the packing came out during the night and wound has subsequently sealed. She reports some pain in the incision area. [facility] Medical History Abdominal wall mass Female bladder prolapse B12 deficiency Depression Hyperlipidemia Osteopenia Personal history of nicotine dependence Obesity Thyroid nodule Hypothyroidism (~2014) Surgical History Hx of abdominal surgery (04/30/23) History of incisional hernia repair (12/11/22) Previous section Hx of laparoscopy History of partial hysterectomy (05/2022) History of colonoscopy History of foot surgery Hx of mammogram Hx of cholecystectomy Hx of tonsillectomy History of esophagogastroduodenoscopy (EGD) Family History Father Heart disease Mother Cardiomyopathy Goiter Maternal Grandfather Stomach cancer Social History Alcohol intake: current Alcohol intake frequency: does not drink Patient Tobacco Use Status: Current everyday Tobacco user Tobacco use type: Cigarette Cigarettes Per Day: 10 Years Smoked: 40 - onset 22, 1.5-2ppd x 40yrs, 60+PYH Second Hand Smoke Exposure: No Physical Exam Vital Signs: Last Vital Signs BP 122/82 05/10/23 09:27 BMI result Body Mass Index 33.1 GI Other: Incision in the right upper quadrant is sealed. Sutures remained intact. Wound was probed with a cotton swab with production of a small amount of bloody fluid. Wound was repacked with quarter-inch Nu Gauze and covered with dry sterile dressings. Extrem Other: No edema Assessment & Plan Assessment & Plan (1) Abdominal wall seroma: Code(s): S30.1XXA - Contusion of abdominal wall, initial encounter Qualifiers: Encounter type: subsequent encounter Qualified Code(s): S30.1XXD - Contusion of abdominal wall, subsequent encounter Plan Hematoma/seroma of the right upper quadrant status post excision. Wound was repacked and covered with dry sterile dressings. Instructed patient to try to keep packing in place until next week. Patient may bend without restriction. No restrictions to lifting as well. She will return next week for suture removal and wound check. Medications: New doxycycline hyclate 100 mg PO BID 28 caps 1RF S30.1XXA - Contusion of abdominal wall, initial encounter Coding Level of Care Code Global (06935) Diagnoses Abdominal wall seroma, subsequent encounter S30.1XXD Encounter type: subsequent encounter
[2023-05-10 09:27] VITALS: BP 122/82; BMI 33.1
== END 2023-05-10 09:43 | disposition home or self-care (01) ==
PROVIDERS: PCP Internal Medicine Geriatric Medicine; Visit Provider Surgery
DX: S30.1XXD Contusion of abdominal wall, subsequent encounter (principal)
CPT/HCPCS: 99024

== ENCOUNTER → 2023-05-10 09:10 | Outpatient (BNVA) | payer MEDICARE, MEDICAID, SELFPAY | PROVIDERS: PCP Internal Medicine Geriatric Medicine; Visit Provider Surgery | DX: S30.1XXD Contusion of abdominal wall, subsequent encounter (principal) | CPT/HCPCS: 99212 ==

== ENCOUNTER 2023-05-15 11:10 | Outpatient (AMB) | payer MEDICARE, MEDICAID, SELFPAY ==
--- NOTE | 2023-05-15 11:23 | A.OFFVIS_ITS ---
Intake Vital Signs 05/15/23 11:24 Height 5 ft 6 in Weight 205 lb BMI 33.1 BP 143/82 H Blood Pressure Location Lt brachial Position Sitting Pulse 93 Intake Visit Reasons: wound check , Suture removal Intake Note: Patient is seen in office for suture removal, post excision abdominal wound seroma. 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 Required: No Accompanied by: Self / Same As Patient Allergies sertraline [From ZOLOFT] Allergy (Severe, Verified 05/15/23 11:26) GI UPSET/LETHARGY/CONFUSION atorvastatin [ATORVASTATIN] Allergy (Intermediate, Verified 05/15/23 11:26) SEVER MUSCLE/FOOT PAIN oxycodone [OXYCODONE] Allergy (Intermediate, Verified 05/15/23 11:26) GI UPSET,CONFUSION cefaclor [From Ceclor] Allergy (Mild, Verified 05/15/23 11:26) DYSPNEA Penicillins Allergy (Mild, Verified 05/15/23 11:26) DYSPNEA vancomycin [Vancomycin] Allergy (Mild, Verified 05/15/23 11:26) ITCHING acetaminophen [Tylenol-Codeine #3] Allergy (Unknown, Verified 05/15/23 11:26) Unknown penicillin V Allergy (Unknown, Verified 05/15/23 11:26) unknown metronidazole [From Flagyl] Adverse Reaction (Unknown, Unverified 05/15/23 11:26) Unknown Bactrim Allergy (Unknown, Uncoded 05/15/23 11:26) Unknown Medication List - Last Reconciled 05/15/23 by Sp Dubois MD albuterol sulfate 90 mcg/actuation inhalation PRN cyanocobalamin (vitamin B-12) 1,000 mcg IM docusate sodium 100 mg PO BID doxycycline hyclate 100 mg PO BID fluticasone propionate 110 mcg/actuation (Flovent HFA) inhalation ibuprofen 800 mg PO TID levothyroxine 50 mcg PO DAILY mometasone 0.1% appl topical DAILY naloxone 4 mg/actuation 0 sprays intranasal nystatin 400,000 units (4 mL) PO QID 7 days omeprazole 20 mg PO DAILY paroxetine HCl 10 mg PO DAILY uujotsqfc-ykpjfu-jnvdxjkw-scop 16.2-0.1037 -0.0194 mg (Phenohytro) 1 tab PO TID polyethylene glycol 3350 17 grams PO DAILY HPI HPI Comments History of Present Illness Details Patient returns for wound check. She reports a large amount of drainage on . Packing fell out approximately 1.5 days after her last visit. She reports feeling nauseous but denies any fever or chills. PFSH Medical History Abdominal wall mass Female bladder prolapse B12 deficiency Depression Hyperlipidemia Osteopenia Personal history of nicotine dependence Obesity Thyroid nodule Hypothyroidism (~2014) Surgical History Hx of abdominal surgery (04/30/23) History of incisional hernia repair (12/11/22) Previous section Hx of laparoscopy History of partial hysterectomy (05/2022) History of colonoscopy History of foot surgery Hx of mammogram Hx of cholecystectomy Hx of tonsillectomy History of esophagogastroduodenoscopy (EGD) Family History Father Heart disease Mother Cardiomyopathy Goiter Maternal Grandfather Stomach cancer Social History Alcohol intake: current Alcohol intake frequency: does not drink Patient Tobacco Use Status: Current everyday Tobacco user Tobacco use type: Cigarette Cigarettes Per Day: 10 Years Smoked: 40 - onset 22, 1.5-2ppd x 40yrs, 60+PYH Second Hand Smoke Exposure: No Physical Exam Vital Signs: Last Vital Signs Pulse 93 05/15/23 11:24 BP 143/82 H 05/15/23 11:24 BMI result Body Mass Index 33.1 Const General: no acute distress Nutritional Appearance: well nourished Resp Effort & Inspection: normal respiratory effort GI Other: Incision in the right upper quadrant was probed with a cotton swab. No further seroma is identified. Inflammation remains but no fluid discharge could be identified. Wound was repacked with quarter-inch Nu Gauze. Sutures removed from umbilical and right upper quadrant incision. Dry sterile dressings were applied. Extrem General: No edema Assessment & Plan Assessment & Plan (1) Abdominal wall seroma: Code(s): S30.1XXA - Contusion of abdominal wall, initial encounter Qualifiers: Encounter type: subsequent encounter Qualified Code(s): S30.1XXD - Contusion of abdominal wall, subsequent encounter Plan Patient returns for wound check. No further fluid collection is identified at this time. Wounds were repacked with Nu Gauze and covered with dry sterile dressings. Patient will return next week for an RN visit. Coding Level of Care Code Global (24969) Diagnoses Abdominal wall seroma, subsequent encounter S30.1XXD Encounter type: subsequent encounter
[2023-05-15 11:24] VITALS: BP 143/82; PULSE 93; BMI 33.1
== END 2023-05-15 11:41 | disposition home or self-care (01) ==
PROVIDERS: PCP Internal Medicine Geriatric Medicine; Visit Provider Surgery
DX: S30.1XXD Contusion of abdominal wall, subsequent encounter (principal)
CPT/HCPCS: 99024

== ENCOUNTER → 2023-05-15 11:10 | Outpatient (BNVA) | payer MEDICARE, MEDICAID, SELFPAY | PROVIDERS: PCP Internal Medicine Geriatric Medicine; Visit Provider Surgery | DX: Z48.1 Encounter for planned postprocedural wound closure (principal); S30.1XXD Contusion of abdominal wall, subsequent encounter | CPT/HCPCS: 99212 ==

== ENCOUNTER 2023-05-16 14:09 | Outpatient (AMB) | payer MEDICARE, MEDICAID, SELFPAY ==
--- NOTE | 2023-05-16 16:22 | MHC.OFFVIS ---
Intake Intake Visit Reasons: wound check, incision open up Allergies sertraline [From ZOLOFT] Allergy (Severe, Verified 05/15/23 11:26) GI UPSET/LETHARGY/CONFUSION atorvastatin [ATORVASTATIN] Allergy (Intermediate, Verified 05/15/23 11:26) SEVER MUSCLE/FOOT PAIN oxycodone [OXYCODONE] Allergy (Intermediate, Verified 05/15/23 11:26) GI UPSET,CONFUSION cefaclor [From Ceclor] Allergy (Mild, Verified 05/15/23 11:26) DYSPNEA Penicillins Allergy (Mild, Verified 05/15/23 11:26) DYSPNEA vancomycin [Vancomycin] Allergy (Mild, Verified 05/15/23 11:26) ITCHING acetaminophen [Tylenol-Codeine #3] Allergy (Unknown, Verified 05/15/23 11:) Unknown penicillin V Allergy (Unknown, Verified 05/15/23 11:) unknown metronidazole [From Flagyl] Adverse Reaction (Unknown, Unverified 05/15/23 11:) Unknown Bactrim Allergy (Unknown, Uncoded 05/15/23 11:) Unknown Medication List - Last Reconciled 05/16/23 by Sp Dubois MD [ABD gauze pads 1 box As directed] albuterol sulfate 90 mcg/actuation inhalation PRN cyanocobalamin (vitamin B-12) 1,000 mcg IM docusate sodium 100 mg PO BID doxycycline hyclate 100 mg PO BID fluticasone propionate 110 mcg/actuation (Flovent HFA) inhalation ibuprofen 800 mg PO TID [Kerlix gauze pads 1 box As directed] levothyroxine 50 mcg PO DAILY mometasone 0.1% appl topical DAILY naloxone 4 mg/actuation 0 sprays intranasal nystatin 400,000 units (4 mL) PO QID 7 days omeprazole 20 mg PO DAILY paroxetine HCl 10 mg PO DAILY ffevkzhok-cizkjr-nhogtdtg-scop 16.2-0.1037 -0.0194 mg (Phenohytro) 1 tab PO TID polyethylene glycol 3350 17 grams PO DAILY HPI HPI Comments History of Present Illness Details Patient returns today for wound check. was changing her dressing this morning and felt the incision had opened up. She was asked to return today for re-evaluation. She denies any new symptoms. There was some discharge overnight. She denies any fever or chills. [facility] Medical History Abdominal wall mass Female bladder prolapse B12 deficiency Depression Hyperlipidemia Osteopenia Personal history of nicotine dependence Obesity Thyroid nodule Hypothyroidism (~2014) Surgical History Hx of abdominal surgery (04/30/23) History of incisional hernia repair (12/11/22) Previous section Hx of laparoscopy History of partial hysterectomy (05/2022) History of colonoscopy History of foot surgery Hx of mammogram Hx of cholecystectomy Hx of tonsillectomy History of esophagogastroduodenoscopy (EGD) Family History Father Heart disease Mother Cardiomyopathy Goiter Maternal Grandfather Stomach cancer Social History Alcohol intake: current Alcohol intake frequency: does not drink Patient Tobacco Use Status: Current everyday Tobacco user Tobacco use type: Cigarette Cigarettes Per Day: 10 Years Smoked: 40 - onset 22, 1.5-2ppd x 40yrs, 60+PYH Second Hand Smoke Exposure: No Physical Exam Const General: no acute distress Nutritional Appearance: well nourished Resp Effort & Inspection: normal respiratory effort GI Other: Incision in the right upper quadrant is open in the central portion where the packing previously was. There is a small amount of skin slough noted at this spot but no new opening is identified. The umbilical incision is now well healed. Wounds were repacked with quarter-inch Nu Gauze and covered with dry sterile dressings. Extrem General: No edema Assessment & Plan Assessment & Plan (1) Abdominal wall seroma: Code(s): S30.1XXA - Contusion of abdominal wall, initial encounter Qualifiers: Encounter type: subsequent encounter Qualified Code(s): S30.1XXD - Contusion of abdominal wall, subsequent encounter Plan Patient returns for wound check. No further fluid collection is identified at this time. Wounds were repacked with Nu Gauze and covered with dry sterile dressings. Patient will return next week for an RN visit. Coding Level of Care Code Global (46287) Diagnoses Abdominal wall seroma, subsequent encounter S30.1XXD Encounter type: subsequent encounter
== END 2023-05-16 14:36 | disposition home or self-care (01) ==
PROVIDERS: PCP Internal Medicine Geriatric Medicine; Visit Provider Surgery
DX: S30.1XXD Contusion of abdominal wall, subsequent encounter (principal)
CPT/HCPCS: 99024

== ENCOUNTER → 2023-05-16 14:09 | Outpatient (BNVA) | payer MEDICARE, MEDICAID, SELFPAY | PROVIDERS: PCP Internal Medicine Geriatric Medicine; Visit Provider Surgery | DX: S30.1XXD Contusion of abdominal wall, subsequent encounter (principal) | CPT/HCPCS: 99212 ==

== ENCOUNTER → 2023-05-22 09:53 | Outpatient (BNVA) | payer MEDICARE, MEDICAID, SELFPAY | PROVIDERS: PCP Internal Medicine Geriatric Medicine; Visit Provider Surgery | DX: Z48.01 Encounter for change or removal of surgical wound dressing (principal) | CPT/HCPCS: 99211 ==

== ENCOUNTER → 2023-05-29 11:00 | Outpatient (BNVA) | payer MEDICARE, MEDICAID, SELFPAY | PROVIDERS: PCP Internal Medicine Geriatric Medicine; Visit Provider Surgery | DX: Z48.1 Encounter for planned postprocedural wound closure (principal) | CPT/HCPCS: 99211 ==

== ENCOUNTER 2023-06-05 11:04 | Outpatient (AMB) | payer MEDICARE, MEDICAID, SELFPAY ==
--- NOTE | 2023-06-05 11:05 | MHC.OFFVIS ---
Vital Signs 06/05/23 11:15 Height 5 ft 6 in Weight 206 lb BMI 33.2 BP 130/84 Blood Pressure Location Lt brachial Position Sitting Pulse 95 Intake Visit Reasons: wound check Intake Note: Patient is seen in office for wound check, post excision abdominal wound seroma. 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 Accompanied by: Self / Same As Patient Allergies sertraline [From ZOLOFT] Allergy (Severe, Verified 06/05/23 11:05) GI UPSET/LETHARGY/CONFUSION atorvastatin [ATORVASTATIN] Allergy (Intermediate, Verified 06/05/23 11:05) SEVER MUSCLE/FOOT PAIN oxycodone [OXYCODONE] Allergy (Intermediate, Verified 06/05/23 11:05) GI UPSET,CONFUSION cefaclor [From Ceclor] Allergy (Mild, Verified 06/05/23 11:05) DYSPNEA Penicillins Allergy (Mild, Verified 06/05/23 11:05) DYSPNEA vancomycin [Vancomycin] Allergy (Mild, Verified 06/05/23 11:05) ITCHING acetaminophen [Tylenol-Codeine #3] Allergy (Unknown, Verified 06/05/23 11:05) Unknown penicillin V Allergy (Unknown, Verified 06/05/23 11:05) unknown metronidazole [From Flagyl] Adverse Reaction (Unknown, Unverified 06/05/23 11:05) Unknown Bactrim Allergy (Unknown, Uncoded 06/05/23 11:05) Unknown HPI Comments Details: Patient returns for wound check. She continues to have a small amount of discharge and continues to feel a lump under the incision. There is occasional discomfort from the site. She did have some discharge from the umbilical incision however nothing since last week. [facility] Medical History Abdominal wall mass Female bladder prolapse B12 deficiency Depression Hyperlipidemia Osteopenia Personal history of nicotine dependence Obesity Thyroid nodule Hypothyroidism (~2014) Surgical History Hx of abdominal surgery (04/30/23) History of incisional hernia repair (12/11/22) Previous section Hx of laparoscopy History of partial hysterectomy (05/2022) History of colonoscopy History of foot surgery Hx of mammogram Hx of cholecystectomy Hx of tonsillectomy History of esophagogastroduodenoscopy (EGD) Family History Father Heart disease Mother Cardiomyopathy Goiter Maternal Grandfather Stomach cancer Social History Alcohol intake: current Alcohol intake frequency: does not drink Patient Tobacco Use Status: Current everyday Tobacco user Tobacco use type: Cigarette Cigarettes Per Day: 10 Years Smoked: 40 - onset 22, 1.5-2ppd x 40yrs, 60+PYH Second Hand Smoke Exposure: No Physical Exam Const General: no acute distress Nutritional Appearance: well nourished Orientation/consciousness: patient oriented x3 Resp Effort & Inspection: normal respiratory effort GI Other: Incision in the right upper quadrant is open and measures approximately 2 cm deep which is much improved from prior examination. The expected inflammatory reaction is noted surrounding this but no residual seroma or abscess cavity is appreciated. No packing was required at this time. Wounds dressed with fluff gauze and dry sterile dressings. The umbilical incision is well healed. Neuro General: patient oriented x3 Extrem General: No edema Assessment & Plan Assessment & Plan (1) Abdominal wall seroma: Code(s): S30.1XXA - Contusion of abdominal wall, initial encounter Category: Surgical Qualifiers: Encounter type: subsequent encounter Qualified Code(s): S30.1XXD - Contusion of abdominal wall, subsequent encounter Plan Abdominal seroma is now resolved with residual open incision which is healing slowly. Depth of the incision is now approximately 2 cm. She should continue with dry sterile dressings and follow-up in approximately 2 weeks. Coding Level of Care Code Global (68188) Diagnoses Abdominal wall seroma, subsequent encounter S30.1XXD Encounter type: subsequent encounter
[2023-06-05 11:15] VITALS: BP 130/84; PULSE 95; BMI 33.2
== END 2023-06-05 11:23 | disposition home or self-care (01) ==
PROVIDERS: PCP Internal Medicine Geriatric Medicine; Visit Provider Surgery
DX: S30.1XXD Contusion of abdominal wall, subsequent encounter (principal)
CPT/HCPCS: 99024

== ENCOUNTER → 2023-06-05 11:04 | Outpatient (BNVA) | payer MEDICARE, MEDICAID, SELFPAY | PROVIDERS: PCP Internal Medicine Geriatric Medicine; Visit Provider Surgery | DX: S30.1XXD Contusion of abdominal wall, subsequent encounter (principal) | CPT/HCPCS: 99212 ==

== ENCOUNTER 2023-06-15 11:10 | Outpatient (AMB) | payer MEDICARE, MEDICAID, SELFPAY ==
[2023-06-15 11:31] VITALS: BP 117/76; PULSE 93; BMI 33.2
--- NOTE | 2023-06-15 11:31 | MHC.OFFVIS ---
Vital Signs 06/15/23 11:31 Height 5 ft 6 in Weight 206 lb BMI 33.2 BP 117/76 Blood Pressure Location Rt brachial Position Sitting Pulse 93 Intake Visit Reasons: Wound Check Intake Note: Patient here for wound check on abd. Reports wound is closing up. Worried seroma will grow back and won't have space to come out. Patient c/o: painful lump underneath scar from hernia surgery. Finished Doxy course. 2nd complaint: LLQ feels like is blowing up. Painful to touch. Bump developed after 2nd surgery. 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 Accompanied by: Self / Same As Patient Allergies sertraline [From ZOLOFT] Allergy (Severe, Verified 06/18/23 09:48) GI UPSET/LETHARGY/CONFUSION atorvastatin [ATORVASTATIN] Allergy (Intermediate, Verified 06/18/23 09:48) SEVER MUSCLE/FOOT PAIN oxycodone [OXYCODONE] Allergy (Intermediate, Verified 06/18/23 09:48) GI UPSET,CONFUSION cefaclor [From Ceclor] Allergy (Mild, Verified 06/18/23 09:48) DYSPNEA Penicillins Allergy (Mild, Verified 06/18/23 09:48) DYSPNEA vancomycin [Vancomycin] Allergy (Mild, Verified 06/18/23 09:48) ITCHING acetaminophen [Tylenol-Codeine #3] Allergy (Unknown, Verified 06/18/23 09:48) Unknown penicillin V Allergy (Unknown, Verified 06/18/23 09:48) unknown metronidazole [From Flagyl] Adverse Reaction (Unknown, Unverified 06/18/23 09:48) Unknown Bactrim Allergy (Unknown, Uncoded 06/18/23 09:48) Unknown Medication List - Last Reconciled 06/19/23 by Sp Dubois MD [ABD gauze pads 1 box As directed] albuterol sulfate 90 mcg/actuation inhalation PRN cyanocobalamin (vitamin B-12) 1,000 mcg IM docusate sodium 100 mg PO BID fluticasone furoate 100 mcg/actuation (Arnuity Ellipta) 1 inh inhalation DAILY ibuprofen 800 mg PO TID [Kerlix gauze pads 1 box As directed] levothyroxine 50 mcg PO DAILY loratadine 10 mg PO DAILY mometasone 0.1% appl topical DAILY naloxone 4 mg/actuation 0 sprays intranasal nystatin 400,000 units (4 mL) PO QID 7 days omeprazole 20 mg PO DAILY paroxetine HCl 10 mg PO DAILY jvxqgmxxn-fmoudu-ywiiqcqx-scop 16.2-0.1037 -0.0194 mg (Phenohytro) 1 tab PO TID polyethylene glycol 3350 17 grams PO DAILY sodium,potassium,mag sulfates 17.5-3.13-1.6 gram (Suprep Bowel Prep Kit) DILUTE; drink 1/2 at 6-8 pm and half at 11 PM- 1AM HPI Comments Details: Patient is concerned regarding her right upper quadrant incision. She has had no discharge for the past 48 hours and is concerned the lesion is filling up once again. She denies any fever or chills. Patient is concerned about swelling in the left upper quadrant and feels a new collection may be developing. [facility] Medical History Abdominal wall mass Female bladder prolapse B12 deficiency Depression Hyperlipidemia Osteopenia Personal history of nicotine dependence Obesity Thyroid nodule Hypothyroidism (~2014) Surgical History Hx of abdominal surgery (04/30/23) History of incisional hernia repair (12/11/22) Previous section Hx of laparoscopy History of partial hysterectomy (05/2022) History of colonoscopy History of foot surgery Hx of mammogram Hx of cholecystectomy Hx of tonsillectomy History of esophagogastroduodenoscopy (EGD) Family History Father Heart disease Mother Cardiomyopathy Goiter Maternal Grandfather Stomach cancer Social History Alcohol intake: current Alcohol intake frequency: does not drink Patient Tobacco Use Status: Current everyday Tobacco user Tobacco use type: Cigarette Cigarettes Per Day: 10 Years Smoked: 40 - onset 22, 1.5-2ppd x 40yrs, 60+PYH Second Hand Smoke Exposure: No Physical Exam Vital Signs: Last Vital Signs Pulse 93 06/15/23 11:31 BP 117/76 06/15/23 11:31 BMI result Body Mass Index 33.2 Const General: comfortable Nutritional Appearance: well nourished GI Other: Incision in the right upper quadrant remains open. This was gently probed with a cotton swab. A pocket approximately 1.5 cm deep was identified. A small amount of purulence discharge was able to be drained. This was then packed with quarter-inch Nu Gauze. Dry sterile dressings were applied. Assessment & Plan Assessment & Plan (1) Abdominal wall seroma: Code(s): S30.1XXA - Contusion of abdominal wall, initial encounter Category: Surgical Qualifiers: Encounter type: subsequent encounter Qualified Code(s): S30.1XXD - Contusion of abdominal wall, subsequent encounter Plan Right upper quadrant incision was opened and a small amount of purulence discharge noted. This was repacked with Nu Gauze covered with dry sterile dressings. The left upper quadrant feels normal to me however I will order an ultrasound to evaluate for subcutaneous collections. She will return in 2 weeks. Orders: Orders US abdomen limited 06/15/23 S30.1XXD - Contusion of abdominal wall, subsequent encounter Coding Level of Care Code Global (56993) Diagnoses Abdominal wall seroma, subsequent encounter S30.1XXD Encounter type: subsequent encounter
== END 2023-06-15 11:53 | disposition home or self-care (01) ==
PROVIDERS: PCP Internal Medicine Geriatric Medicine; Visit Provider Surgery
DX: S30.1XXD Contusion of abdominal wall, subsequent encounter (principal)
CPT/HCPCS: 99024

== ENCOUNTER → 2023-06-15 11:10 | Outpatient (BNVA) | payer MEDICARE, MEDICAID, SELFPAY | PROVIDERS: PCP Internal Medicine Geriatric Medicine; Visit Provider Surgery | DX: L76.34 Postprocedural seroma of skin and subcutaneous tissue following other procedure (principal) | CPT/HCPCS: 99212 ==

== ENCOUNTER 2023-06-18 09:40 | Outpatient (AMB) | payer MEDICARE, MEDICAID, SELFPAY ==
--- NOTE | 2023-06-18 09:45 | A.OFFVIS_ITS ---
Vital Signs 06/18/23 09:46 Height 5 ft 6 in Weight 205 lb 0.478 oz BMI 33.1 BP 123/74 Blood Pressure Location Lt brachial Position Sitting Pulse 93 Intake Visit Reasons: follow up Intake Note: Arlin presents in the office as a follow up. CC: Still having complications from her hernia surgery. She states that she still has issues with her bowels. She does not always take miralax because when she has to leave her house she will have diarrhea. She deals with constipation and then she has diarrhea - then back to hard stools. US is on the . Since her surgery she has leakage and one side of her stomach is hanging down lower than the other. Left side is swollen but she states she does not feel anything in there. IT is visibly bigger than the other side. Allergies sertraline [From ZOLOFT] Allergy (Severe, Verified 06/18/23 09:48) GI UPSET/LETHARGY/CONFUSION atorvastatin [ATORVASTATIN] Allergy (Intermediate, Verified 06/18/23 09:48) SEVER MUSCLE/FOOT PAIN oxycodone [OXYCODONE] Allergy (Intermediate, Verified 06/18/23 09:48) GI UPSET,CONFUSION cefaclor [From Ceclor] Allergy (Mild, Verified 06/18/23 09:48) DYSPNEA Penicillins Allergy (Mild, Verified 06/18/23 09:48) DYSPNEA vancomycin [Vancomycin] Allergy (Mild, Verified 06/18/23 09:48) ITCHING acetaminophen [Tylenol-Codeine #3] Allergy (Unknown, Verified 06/18/23 09:48) Unknown penicillin V Allergy (Unknown, Verified 06/18/23 09:48) unknown metronidazole [From Flagyl] Adverse Reaction (Unknown, Unverified 06/18/23 09:48) Unknown Bactrim Allergy (Unknown, Uncoded 06/18/23 09:48) Unknown HPI HPI follow up : Details: 62 yr old f here for f/u RECAP: Had been seeing May, ongoing diarrhea with constipation bouts she can go up to 8 times a day, feels prolapse has came back she takes colace she has gas bloating with veg says she has had lazy colon and IBS etc since GB removed aged 19 she had rectal and vaginal prolapse surgery 05/2022 she was intolerant of cholestyramine -made her sick recovering from ventral hernia repair abscess and just finished ABx, finally healing ibuprofen every other day at least OD last colonoscopy 2017--- no random bx done. hyperplastic polyp removed LABS: stool PCR GI--neg c diff neg celiac neg RAST--pos for egg whites, shrimp and scallop INTERIM: she has had issues with hernia surgery, seroma keeps developing she has noted loose stools then hard stools she uses dulcolax as needed she has to do manual disimpaction sometimes, puts her hand into the rectum to remove stools taking activia she has dry heaves and chronic nausea, satiety EXAM: GENERAL: The patient is well developed and nontoxic. VITAL SIGNS:see workflow HEENT: Nonicteric sclerae, PERRLA, EOMI. Oropharynx clear. Moist mucous mem branes. Conjunctivae appear well perfused. No thyroid mass. CHEST: Chest wall is nontender. HEART: Regular rate and rhythm without murmurs. LUNGS: Clear to auscultation bilaterally. ABDOMEN: Soft, positive bowel sounds, nontender, no organomegaly.no flank tenderness--bandage lower abdo with seroma SKIN: No rash, no excessive bruising, petechiae, or purpura. NEUROLOGIC: Cranial nerves II-XII intact without motor/sensory deficit. Psych: nml affect A/P: 1/ Abn bowel habit ddx: BAM, SIBO, CHO intolerance, food allergies, IBD, microscopic colitis--tried fodmap --miht need MR defecography or ARM 2/ satiety, nausea--r/o GOO PLAN: 1/ colonoscopy with suprep, egd for nausea 2/ advised on high fiber diet to make stool more consistent--add benefiber PFSH Medical History Abdominal wall mass Female bladder prolapse B12 deficiency Depression Hyperlipidemia Osteopenia Personal history of nicotine dependence Obesity Thyroid nodule Hypothyroidism (~2014) Surgical History Hx of abdominal surgery (04/30/23) History of incisional hernia repair (12/11/22) Previous section Hx of laparoscopy History of partial hysterectomy (05/2022) History of colonoscopy History of foot surgery Hx of mammogram Hx of cholecystectomy Hx of tonsillectomy History of esophagogastroduodenoscopy (EGD) Family History Father Heart disease Mother Cardiomyopathy Goiter Maternal Grandfather Stomach cancer Social History Alcohol intake: current Alcohol intake frequency: does not drink Patient Tobacco Use Status: Current everyday Tobacco user Tobacco use type: Cigarette Cigarettes Per Day: 10 Years Smoked: 40 - onset 22, 1.5-2ppd x 40yrs, 60+PYH Second Hand Smoke Exposure: No Physical Exam Vital Signs: Last Vital Signs Pulse 93 06/18/23 09:46 BP 123/74 06/18/23 09:46 BMI result Body Mass Index 33.1 Assessment & Plan Assessment & Plan (1) Abnormal bowel habits: Code(s): R19.8 - Other specified symptoms and signs involving the digestive system and abdomen Category: Medical Plan: see above Orders: Orders Fecal Fat Qualitative Today R19.8 - Other specified symptoms and signs involving the digestive system and abdomen Pancreatic Elastase-1 Today R19.8 - Other specified symptoms and signs involving the digestive system and abdomen Lactoferrin, Fecal, Quant. Today K51.50 - Left sided colitis without complications, R19.8 - Other specified symptoms and signs involving the digestive system and abdomen Immunoglobulin E Today R19.8 - Other specified symptoms and signs involving the digestive system and abdomen Tryptase Today R19.7 - Diarrhea, unspecified, R19.8 - Other specified symptoms and signs involving the digestive system and abdomen Histamine Plasma Today R19.8 - Other specified symptoms and signs involving the digestive system and abdomen Medications: New sodium,potassium,mag sulfates 17.5-3.13-1.6 gram (Suprep Bowel Prep Kit) DILUTE; drink 1/2 at 6-8 pm and half at 11 PM- 1AM 354 mL 0RF Coding Level of Care Code Est Pt Level 4 (46613) Diagnoses Abnormal bowel habits R19.8
[2023-06-18 09:46] VITALS: BP 123/74; PULSE 93; BMI 33.1
== END 2023-06-18 10:29 | disposition home or self-care (01) ==
PROVIDERS: PCP Internal Medicine Geriatric Medicine; Visit Provider Internal Medicine Gastroenterology
DX: R19.8 Other specified symptoms and signs involving the digestive system and abdomen (principal)
CPT/HCPCS: 99214

== ENCOUNTER → 2023-06-18 09:40 | Outpatient (BNVA) | payer MEDICARE, MEDICAID, SELFPAY | PROVIDERS: PCP Internal Medicine Geriatric Medicine; Visit Provider Internal Medicine Gastroenterology | DX: R19.8 Other specified symptoms and signs involving the digestive system and abdomen (principal) | CPT/HCPCS: 99212 ==

== ENCOUNTER 2023-06-21 07:41 | Outpatient (REF) | payer MEDICARE, MEDICAID, SELFPAY ==
--- NOTE | ~2023-06-21 | US_ITS ---
EXAMINATION: US ABDOMEN LIMITED CLINICAL INFORMATION: Contusion abdominal wall, subsequent encounter Swelling left upper quadrant following hernia repair. History of periumbilical hernia surgery 12/11/2022 with seroma and drainage. Now with fullness/swelling left mid flank area COMPARISON: Limited abdominal ultrasound 03/20/2023 TECHNIQUE: Real-time imaging from just to the right of the umbilicus to the left upper quadrant/left flank was performed FINDINGS: Ultrasound of the area scanned demonstrate no abnormal fluid collection.? Small hernia in the left mid abdomen measuring 0.57 cm US/US abdomen limited IMPRESSION: 1. No abnormal fluid collection in the area of concern. 2. ? Small hernia in the left mid abdomen. If of clinical concern, CT scan of the abdomen could be obtained.
[2023-06-21 09:08] LABS: MANUAL DIFF FLAG NO
[2023-06-21 09:49] LABS: Basophils Absolute Auto 0.1 X10*3/uL (0.0-0.2); Basophils Percent Auto 0.8 % (0-2); Eosinophils Absolute Auto 0.4 X10*3/uL (0.0-0.4); Eosinophils Percent Auto 4.9 % (0-4); Hematocrit 45.4 % (37.0-47.0); Hemoglobin 14.6 g/dl (12.0-16.0); Imm Gran Abs Auto 0.03 X10*3/uL (0.00-0.03); Imm Gran Pct Auto 0.3 % (0.0-0.4); Lymphocytes Absolute Auto 2.1 X10*3/uL (1.2-4.9); Mean Corpuscular HGB Conc 32.2 g/dl (31.0-35.0); Mean Corpuscular Hemoglobin 28.7 pg (27.0-33.0); Mean Corpuscular Volume 89.2 fL (80.0-98.0); Mean Platelet Volume 10.2 fL (9.4-12.3); Monocytes Absolute Auto 0.8 X10*3/uL (0.1-1.2); Monocytes Percent Auto 8.4 % (2-11); Neutrophils Absolute Auto 5.5 x10*3/uL (2.0-8.3); Neutrophils Percent Auto 61.6 % (45-73); Platelet Count 273 X10*3/uL (160-400); Red Blood Count 5.09 X10*6/uL (4.20-5.50); White Blood Count 8.9 X10*3/uL (4.8-10.8)
[2023-06-21 10:47] LABS: Alanine Aminotransferase 15 U/L (0-31); Albumin Level 3.9 g/dL (3.5-5.0); Alkaline Phosphatase 101 U/L (39-117); Anion Gap 14 (12-20); Aspartate Amino Transferase 19 U/L (5-31); Bilirubin Total 0.4 mg/dL (0.0-1.0); Blood Urea Nitrogen 13 mg/dL (9-16); Calcium 9.9 mg/dL (8.4-10.2); Carbon Dioxide 26 mmol/L (22-29); Chloride 105 mmol/L (96-108); Estimated Glomerular Filt Rate > 60; Glucose Random 85 mg/dL (60-115); Potassium 4.2 mmol/L (3.3-5.1); Sodium 141 mmol/L (135-145); Total Protein 7.4 g/dL (6.5-8.0)
[2023-06-21 11:04] LABS: TSH reflex Free T4 5.76 uIU/mL (0.32-4.0)
[2023-06-21 11:38] LABS: Free T4 (Free Thyroxine) 1.17 ng/dL (0.71-1.85)
[2023-06-22 23:38] LABS: Immunoglobulin E 76 kU/L (<OR=114)
[2023-06-29 16:47] LABS: Histamine Plasma <1.5 ng/mL (< OR = 1.8)
== END 2023-06-21 07:42 | disposition home or self-care (01) ==
LOC: HO.US 07:41
PROVIDERS: Absent Provider Internal Medicine Geriatric Medicine; PCP Internal Medicine Geriatric Medicine; Referring Provider Internal Medicine Gastroenterology; Visit Provider Surgery
DX: S30.1XXD Contusion of abdominal wall, subsequent encounter (principal); R19.8 Other specified symptoms and signs involving the digestive system and abdomen; R19.7 Diarrhea, unspecified; E03.9 Hypothyroidism, unspecified; R53.83 Other fatigue
CPT/HCPCS: 36415; 76705; 80053; 82785; 83088; 83520; 84439; 84443; 85025

== ENCOUNTER 2023-06-22 09:46 | Outpatient (AMB) | payer MEDICARE, MEDICAID, SELFPAY ==
--- NOTE | 2023-06-22 09:53 | MHC.OFFVIS ---
Vital Signs 06/22/23 10:08 Height 5 ft 6 in Weight 207 lb BMI 33.4 BP 153/69 H Blood Pressure Location Lt brachial Position Sitting Pulse 103 H Intake Visit Reasons: 1 wk Wound Check Intake Note: Patient is seen in office for ultrasound results, following seroma of the abdomen. 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 Accompanied by: Self / Same As Patient Allergies sertraline [From ZOLOFT] Allergy (Severe, Verified 06/22/23 09:54) GI UPSET/LETHARGY/CONFUSION atorvastatin [ATORVASTATIN] Allergy (Intermediate, Verified 06/22/23 09:54) SEVER MUSCLE/FOOT PAIN oxycodone [OXYCODONE] Allergy (Intermediate, Verified 06/22/23 09:54) GI UPSET,CONFUSION cefaclor [From Ceclor] Allergy (Mild, Verified 06/22/23 09:54) DYSPNEA Penicillins Allergy (Mild, Verified 06/22/23 09:54) DYSPNEA vancomycin [Vancomycin] Allergy (Mild, Verified 06/22/23 09:54) ITCHING acetaminophen [Tylenol-Codeine #3] Allergy (Unknown, Verified 06/22/23 09:54) Unknown penicillin V Allergy (Unknown, Verified 06/22/23 09:54) unknown metronidazole [From Flagyl] Adverse Reaction (Unknown, Unverified 06/22/23 09:54) Unknown Bactrim Allergy (Unknown, Uncoded 06/22/23 09:54) Unknown HPI Comments Details: Patient returns to review recent ultrasound evaluation of the left upper quadrant. No fluid collections were identified however the possibility of a new abdominal wall hernia was noted by ultrasound in the left upper quadrant. This is in a separate location from previous surgery and appears to be directly over the rectus muscle. Overall patient feels improved with decreased size of the right upper quadrant lump and decreased amount of discharge. [facility] Medical History Abdominal wall mass Female bladder prolapse B12 deficiency Depression Hyperlipidemia Osteopenia Personal history of nicotine dependence Obesity Thyroid nodule Hypothyroidism (~2014) Surgical History Hx of abdominal surgery (04/30/23) History of incisional hernia repair (12/11/22) Previous section Hx of laparoscopy History of partial hysterectomy (05/2022) History of colonoscopy History of foot surgery Hx of mammogram Hx of cholecystectomy Hx of tonsillectomy History of esophagogastroduodenoscopy (EGD) Family History Father Heart disease Mother Cardiomyopathy Goiter Maternal Grandfather Stomach cancer Social History Alcohol intake: current Alcohol intake frequency: does not drink Patient Tobacco Use Status: Current everyday Tobacco user Tobacco use type: Cigarette Cigarettes Per Day: 10 Years Smoked: 40 - onset 22, 1.5-2ppd x 40yrs, 60+PYH Second Hand Smoke Exposure: No Physical Exam Vital Signs: Last Vital Signs Pulse 103 H 06/22/23 10:08 BP 153/69 H 06/22/23 10:08 BMI result Body Mass Index 33.4 Const General: comfortable Nutritional Appearance: well nourished GI Other: Incision in the right upper quadrant remains open. A small amount of discharge was able to be expressed with a cotton swab. Wound measures approximately 1 cm deep. No packing was applied. No palpable lump is noted in the left upper quadrant at this time with Valsalva maneuvers. Dry sterile dressing was applied to the right upper quadrant incision. Assessment & Plan Assessment & Plan (1) Abdominal wall seroma: Code(s): S30.1XXA - Contusion of abdominal wall, initial encounter Category: Surgical Qualifiers: Encounter type: subsequent encounter Qualified Code(s): S30.1XXD - Contusion of abdominal wall, subsequent encounter (2) Incisional hernia without obstruction or gangrene: Code(s): K43.2 - Incisional hernia without obstruction or gangrene Category: Medical Plan Patient returns following ultrasound of the left upper quadrant to evaluate for seroma. No seroma was identified although the possibility of a new hernia was noted in the left upper quadrant. This is certainly an unusual location for a ventral hernia with the overlying rectus muscle. On examination no hernia is identified. Ultrasound report does recommend proceeding with CT abdomen and pelvis to better evaluate for hernia. I discussed this with the patient and she agrees to proceed. She will return following the study to review the results. Orders: Orders CT abdomen pelvis wo IV con Today K43.2 - Incisional hernia without obstruction or gangrene Coding Level of Care Code Global (52120) Diagnoses Abdominal wall seroma, subsequent encounter S30.1XXD Encounter type: subsequent encounter Incisional hernia without obstruction or gangrene K43.2
[2023-06-22 10:08] VITALS: BP 153/69; PULSE 103; BMI 33.4
== END 2023-06-22 10:20 | disposition home or self-care (01) ==
PROVIDERS: PCP Internal Medicine Geriatric Medicine; Visit Provider Surgery
DX: S30.1XXD Contusion of abdominal wall, subsequent encounter (principal); K43.2 Incisional hernia without obstruction or gangrene
CPT/HCPCS: 99024

== ENCOUNTER → 2023-06-22 09:46 | Outpatient (BNVA) | payer MEDICARE, MEDICAID, SELFPAY | PROVIDERS: PCP Internal Medicine Geriatric Medicine; Visit Provider Surgery | DX: S30.1XXD Contusion of abdominal wall, subsequent encounter (principal); K43.2 Incisional hernia without obstruction or gangrene | CPT/HCPCS: 99212 ==

== ENCOUNTER 2023-06-29 11:03 | Outpatient (REF) | payer MEDICARE, MEDICAID, SELFPAY ==
--- NOTE | ~2023-06-29 | CT_ITS ---
EXAMINATION: CT ABDOMEN AND PELVIS WITHOUT CONTRAST CLINICAL INFORMATION: Incisional hernia evaluation COMPARISON: Prior ultrasound dated 06/21/[address] abdomen pelvis 02/09/2023 TECHNIQUE: Multidetector volumetric imaging was performed from the superior aspect of the liver through the pubic symphysis. Sagittal and coronal reformatted images were obtained on the technologist's workstation. This CT examination was performed using dose optimization techniques as appropriate, variously including the following: *Automated exposure control *Adjustment of mA and/or kV according to patient size (this includes techniques or standardized protocols for targeted exams where dose is matched to indication/reason for exam; i.e. extremities or head) *Use of iterative reconstruction technique DLP: 809 mGy-cm FINDINGS: LUNG BASES: The visualized lung bases are unremarkable. LIVER, GALLBLADDER, AND BILIARY TREE: The liver is normal in size, shape, and attenuation. No focal hepatic lesion or biliary ductal dilatation is present. The gallbladder is absent. PANCREAS: Unremarkable. SPLEEN: Small adjacent splenule. Spleen otherwise unremarkable. No perisplenic collections. No left upper quadrant collections. ADRENAL GLANDS: Unremarkable. KIDNEYS AND URETERS: Tiny punctate bilateral nephroliths but no hydronephrosis or perinephric collection. Previously noted tiny hypodensities in the kidneys are less conspicuous on this noncontrast study. BLADDER: The bladder is decompressed thus suboptimally evaluated. GASTROINTESTINAL TRACT: There is moderate sigmoid diverticular disease, with some induration in the adjacent perisigmoid fat suspicious for mild diverticulitis. No drainable collections. No bowel obstruction or right or left lower quadrant inflammatory change. Surgical clips are observed, at the base of the cecum. ABDOMINAL WALL: There is residual induration within the anterior abdominal subcutaneous fat right of midline cyst with the patient's incisional hernia with scarring however I do not see an active hernia or defect in the ventral fascia and bowel does not appear to participate. The appearance certainly has improved from 02/09/2023. Abscess collections are not seen. LYMPH NODES: Normal. VASCULAR: Aorta is atherosclerotic but nonaneurysmal. PELVIC VISCERA: Unremarkable. OSSEOUS STRUCTURES: Unremarkable. CT/CT abdomen pelvis wo IV con IMPRESSION: 1. Previously noted edema and induration in the subcutaneous tissues at the umbilicus as improved with residual scarring noted. A recurrent bowel containing hernia is not seen and there are no abscess collections. 2. Mild diverticulitis of the sigmoid colon without drainable collections. Fleischner guidelines were followed.
== END 2023-06-29 11:04 | disposition home or self-care (01) ==
LOC: HO.CT 11:03
PROVIDERS: PCP Internal Medicine Geriatric Medicine; Visit Provider Surgery
DX: K43.2 Incisional hernia without obstruction or gangrene (principal)
CPT/HCPCS: 74176

== ENCOUNTER 2023-07-06 10:20 | Outpatient (AMB) | payer MEDICARE, MEDICAID, SELFPAY ==
--- NOTE | 2023-07-06 10:26 | A.OFFVIS_ITS ---
Vital Signs 07/06/23 10:35 Height 5 ft 6 in Weight 207 lb BMI 33.4 BP 131/85 Blood Pressure Location Lt brachial Position Sitting Pulse 104 H Intake Visit Reasons: Ct-Scan results Intake Note: Patient is seen in office for CT scan results, following seroma. 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 Accompanied by: Self / Same As Patient Allergies sertraline [From ZOLOFT] Allergy (Severe, Verified 07/06/23 10:27) GI UPSET/LETHARGY/CONFUSION atorvastatin [ATORVASTATIN] Allergy (Intermediate, Verified 07/06/23 10:27) SEVER MUSCLE/FOOT PAIN oxycodone [OXYCODONE] Allergy (Intermediate, Verified 07/06/23 10:27) GI UPSET,CONFUSION cefaclor [From Ceclor] Allergy (Mild, Verified 07/06/23 10:27) DYSPNEA Penicillins Allergy (Mild, Verified 07/06/23 10:27) DYSPNEA vancomycin [Vancomycin] Allergy (Mild, Verified 07/06/23 10:27) ITCHING acetaminophen [Tylenol-Codeine #3] Allergy (Unknown, Verified 07/06/23 10:27) Unknown penicillin V Allergy (Unknown, Verified 07/06/23 10:27) unknown metronidazole [From Flagyl] Adverse Reaction (Unknown, Unverified 07/06/23 10:27) Unknown Bactrim Allergy (Unknown, Uncoded 07/06/23 10:27) Unknown Medication List - Last Reconciled 07/06/23 by Sp Dubois MD [ABD gauze pads 1 box As directed] albuterol sulfate 90 mcg/actuation inhalation PRN cyanocobalamin (vitamin B-12) 1,000 mcg IM docusate sodium 100 mg PO BID fluticasone furoate 100 mcg/actuation (Arnuity Ellipta) 1 inh inhalation DAILY ibuprofen 800 mg PO TID [Kerlix gauze pads 1 box As directed] levothyroxine 50 mcg PO DAILY loratadine 10 mg PO DAILY mometasone 0.1% appl topical DAILY naloxone 4 mg/actuation 0 sprays intranasal nystatin 400,000 units (4 mL) PO QID 7 days omeprazole 20 mg PO DAILY paroxetine HCl 10 mg PO DAILY aulifrbup-xhyuum-ncfxkobo-scop 16.2-0.1037 -0.0194 mg (Phenohytro) 1 tab PO TID polyethylene glycol 3350 17 grams PO DAILY sodium,potassium,mag sulfates 17.5-3.13-1.6 gram (Suprep Bowel Prep Kit) DILUTE; drink 1/2 at 6-8 pm and half at 11 PM- 1AM HPI Comments Details: Patient returns reporting upper respiratory infection symptoms. She noted occasional discharge from the abdominal wound but no discharge recently. She returns following a recent CT abdomen and pelvis with she was reviewed in detail. No recurrent hernia, fluid collection is identified. There is evidence of diverticulosis with some inflammatory changes. No drainable collections are identified. [facility] Medical History Abdominal wall mass Female bladder prolapse B12 deficiency Depression Hyperlipidemia Osteopenia Personal history of nicotine dependence Obesity Thyroid nodule Hypothyroidism (~2014) Surgical History Hx of abdominal surgery (04/30/23) History of incisional hernia repair (12/11/22) Previous section Hx of laparoscopy History of partial hysterectomy (05/2022) History of colonoscopy History of foot surgery Hx of mammogram Hx of cholecystectomy Hx of tonsillectomy History of esophagogastroduodenoscopy (EGD) Family History Father Heart disease Mother Cardiomyopathy Goiter Maternal Grandfather Stomach cancer Social History Alcohol intake: current Alcohol intake frequency: does not drink Patient Tobacco Use Status: Current everyday Tobacco user Tobacco use type: Cigarette Cigarettes Per Day: 10 Years Smoked: 40 - onset 22, 1.5-2ppd x 40yrs, 60+PYH Second Hand Smoke Exposure: No Physical Exam Vital Signs: Last Vital Signs Pulse 104 H 07/06/23 10:35 BP 131/85 07/06/23 10:35 BMI result Body Mass Index 33.4 Const General: comfortable Nutritional Appearance: well nourished GI Other: Incision in the right upper quadrant is now closed and no remaining pocket could be identified with a cotton swab. There is some overlying skin excoriation but no residual fluid collection could be identified. The midline incision is clean and intact without any new opening. Left upper quadrant is soft and nondistended. No changes noted with Valsalva maneuvers. Assessment & Plan Assessment & Plan (1) Abdominal wall seroma: Code(s): S30.1XXA - Contusion of abdominal wall, initial encounter Category: Surgical Qualifiers: Encounter type: subsequent encounter Qualified Code(s): S30.1XXD - Contusion of abdominal wall, subsequent encounter Plan Patient's symptoms are now improved and no residual fluid collections are bailey ntified. She should continue with dry sterile dressings as needed. She may resume normal activity without restrictions. She should follow up as needed. Coding Level of Care Code Global (85816) Diagnoses Abdominal wall seroma, subsequent encounter S30.1XXD Encounter type: subsequent encounter
[2023-07-06 10:35] VITALS: BP 131/85; PULSE 104; BMI 33.4
== END 2023-07-06 10:44 | disposition home or self-care (01) ==
PROVIDERS: PCP Internal Medicine Geriatric Medicine; Visit Provider Surgery
DX: S30.1XXD Contusion of abdominal wall, subsequent encounter (principal)
CPT/HCPCS: 99024

== ENCOUNTER → 2023-07-06 10:20 | Outpatient (BNVA) | payer MEDICARE, MEDICAID, SELFPAY | PROVIDERS: PCP Internal Medicine Geriatric Medicine; Visit Provider Surgery | DX: S30.1XXD Contusion of abdominal wall, subsequent encounter (principal); X58.XXXD Exposure to other specified factors, subsequent encounter | CPT/HCPCS: 99212 ==

== ENCOUNTER 2023-07-09 | Outpatient (REF) | payer MEDICARE, MEDICAID, SELFPAY ==
[2023-07-16 17:14] LABS: Fecal Fat Qualitative Normal (Normal)
[2023-07-17 19:24] LABS: Pancreatic Elastase-1 >500 mcg/g
== END 2023-07-09 00:01 | disposition home or self-care (01) ==
LOC: HO.LNP
PROVIDERS: Visit Provider Internal Medicine Gastroenterology
DX: R19.8 Other specified symptoms and signs involving the digestive system and abdomen (principal); K51.50 Left sided colitis without complications
CPT/HCPCS: 82656; 82705; 83631

== ENCOUNTER 2023-07-10 11:28 | Outpatient (REF) | payer MEDICARE, MEDICAID, SELFPAY ==
[2023-07-17 09:53] LABS: Creatinine 24Hr Urine 555 mg/24 h (603 - 1783); N-Methylhistamine, 24Hr Urine 102 mcg/g Cr (30-200); Total Volume 1850 mL
== END 2023-07-10 11:29 | disposition home or self-care (01) ==
LOC: HO.LNP 11:28
PROVIDERS: Visit Provider Internal Medicine Gastroenterology
DX: R19.8 Other specified symptoms and signs involving the digestive system and abdomen (principal); R74.8 Abnormal levels of other serum enzymes; K51.50 Left sided colitis without complications
CPT/HCPCS: 81050; 82542

== ENCOUNTER 2023-07-13 06:24 | Day surgery (SDC) | payer MEDICARE, MEDICAID, SELFPAY ==
--- NOTE | 2023-07-11 12:33 | HO.ANESPROP2 ---
Documented by User: Kala Godinez NP 07/11/23 12:34 HPI - Anesthesia Eval Consult details Narrative: 62yo F for Upper Endoscopy and Colonoscopy PMFSH Active Problems Active Problems: All Active Problems Elevated serum tryptase (Acute) Abnormal bowel habits (Acute) Abdominal wall seroma (Acute) Abdominal wall mass (Acute) Oral candidiasis (Acute) Irritable bowel syndrome with diarrhea (Acute) Acute diarrhea (Acute) Incisional hernia without obstruction or gangrene (Acute) Umbilical hernia (Acute) Dysphagia (Acute) GERD (gastroesophageal reflux disease) (Acute) Bile salt-induced diarrhea (Acute) Personal history of nicotine dependence (Acute) Obesity (Acute) Thyroid nodule (Acute) Hypothyroidism (Acute ~2015) Past Medical History Medical History Abdominal wall mass Female bladder prolapse B12 deficiency Depression Hyperlipidemia Osteopenia Personal history of nicotine dependence Obesity Thyroid nodule Hypothyroidism (~2014) Family History Family History Father Heart disease Mother Cardiomyopathy Goiter Maternal Grandfather Stomach cancer Family history of problems with anesthesia: No Surgical History Surgical History Hx of abdominal surgery (04/30/23) History of incisional hernia repair (12/11/22) Previous section Hx of laparoscopy History of partial hysterectomy (05/2022) History of colonoscopy History of foot surgery Hx of mammogram Hx of cholecystectomy Hx of tonsillectomy History of esophagogastroduodenoscopy (EGD) History of Problems with Anesthesia: No Social History Social History Alcohol intake: current Alcohol intake frequency: does not drink Patient Tobacco Use Status: Current everyday Tobacco user Tobacco use type: Cigarette Cigarette Packs Per Day: 0.5 Cigarettes Per Day: 10.0 Years Smoked: 40 - onset 22, 1.5-2ppd x 38yrs, 60+PYH Date Education Initiated: 07/13/23 Second Hand Smoke Exposure: No Use of substances other than those prescribed or required for medical reasons: No Are you DNR?: No Advance Directives: No Advance Directives Information Provided: Yes Meds Allergies Allergy/AdvReac Type Severity Reaction Status Date / Time sertraline [From ZOLOFT] Allergy Severe GI Verified 07/13/23 07:06 UPSET/LETHARGY/CONFUSION atorvastatin [ATORVASTATIN] Allergy Intermediate SEVER Verified 07/13/23 07:06 MUSCLE/FOOT PAIN oxycodone [OXYCODONE] Allergy Intermediate GI Verified 07/13/23 07:06 UPSET,CONFUSION cefaclor [From Ceclor] Allergy Mild DYSPNEA Verified 07/13/23 07:06 Penicillins Allergy Mild DYSPNEA Verified 07/13/23 07:06 vancomycin [Vancomycin] Allergy Mild ITCHING Verified 07/13/23 07:06 acetaminophen Allergy Unknown Unknown Verified 07/13/23 07:06 [Tylenol-Codeine #3] penicillin V Allergy Unknown unknown Verified 07/13/23 07:06 metronidazole [From Flagyl] AdvReac Unknown Unknown Verified 07/13/23 07:06 Bactrim Allergy Unknown Unknown Uncoded 07/13/23 06:39 Home Medications ?Medication ?Instructions ?Recorded ?Confirmed ?Last Taken ?Type albuterol sulfate 90 mcg/actuation inhalation PRN Shortness Of Breath 03/31/20 07/06/23 Unknown History aerosol inhaler Or Wheezing cyanocobalamin (vitamin B-12) 1,000 mcg IM 03/31/20 07/06/23 Unknown History 1,000 mcg/mL injection solution mometasone 0.1 % topical cream appl topical DAILY 03/31/20 07/06/23 Unknown History paroxetine HCl 10 mg tablet 10 mg PO DAILY 03/31/20 07/06/23 Unknown History polyethylene glycol 3350 17 17 g PO DAILY 03/31/20 07/06/23 Unknown History gram/dose oral powder levothyroxine 50 mcg tablet 50 mcg PO DAILY 06/14/20 07/06/23 12/11/22 05:00 History naloxone 4 mg/actuation nasal spray 0 spray intranasal 04/04/22 07/06/23 Unknown History gvakrhpvw-pzbzqntuq-qzkwezit-scop 1 tab PO TID 12/01/22 07/06/23 Unknown History 16.2 mg-0.1037 mg-0.0194 mg tablet (Phenohytro) docusate sodium 100 mg capsule 100 mg PO BID 12/11/22 07/06/23 Unknown History ibuprofen 800 mg tablet 800 mg PO TID 03/12/23 07/06/23 Unknown History omeprazole 20 mg capsule,delayed 20 mg PO DAILY 03/12/23 07/06/23 Unknown History release fluticasone furoate 100 1 inh inhalation DAILY 06/18/23 07/06/23 Unknown History mcg/actuation blister powder for inhalation (Arnuity Ellipta) loratadine 10 mg tablet 10 mg PO DAILY 06/18/23 07/06/23 Unknown History Assessment and Plan Assessment Anesthesia Assessment: Chart Reviewed Final Anesthetic Review Family History of Problems with Anesthesia: No History of Problems with Anesthesia: No Documented by User: Karla Stark MD 07/13/23 08:06 PMF Past Medical History Medical History Abdominal wall mass Female bladder prolapse B12 deficiency Depression Hyperlipidemia Osteopenia Personal history of nicotine dependence Obesity Thyroid nodule Hypothyroidism (~2014) Family History Family History Father Heart disease Mother Cardiomyopathy Goiter Maternal Grandfather Stomach cancer Surgical History Surgical History Hx of abdominal surgery (04/30/23) History of incisional hernia repair (12/11/22) Previous section Hx of laparoscopy History of partial hysterectomy (05/2022) History of colonoscopy History of foot surgery Hx of mammogram Hx of cholecystectomy Hx of tonsillectomy History of esophagogastroduodenoscopy (EGD) Social History Social History Alcohol intake: current Alcohol intake frequency: does not drink Patient Tobacco Use Status: Current everyday Tobacco user Tobacco use type: Cigarette Cigarette Packs Per Day: 0.5 Cigarettes Per Day: 10.0 Years Smoked: 40 - onset 22, 1.5-2ppd x 40yrs, 60+PYH Date Education Initiated: 07/13/23 Second Hand Smoke Exposure: No Use of substances other than those prescribed or required for medical reasons: No Are you DNR?: No Advance Directives: No Advance Directives Information Provided: Yes Meds Allergies Allergy/AdvReac Type Severity Reaction Status Date / Time sertraline [From ZOLOFT] Allergy Severe GI Verified 07/13/23 07:06 UPSET/LETHARGY/CONFUSION atorvastatin [ATORVASTATIN] Allergy Intermediate SEVER Verified 07/13/23 07:06 MUSCLE/FOOT PAIN oxycodone [OXYCODONE] Allergy Intermediate GI Verified 07/13/23 07:06 UPSET,CONFUSION cefaclor [From Ceclor] Allergy Mild DYSPNEA Verified 07/13/23 07:06 Penicillins Allergy Mild DYSPNEA Verified 07/13/23 07:06 vancomycin [Vancomycin] Allergy Mild ITCHING Verified 07/13/23 07:06 acetaminophen Allergy Unknown Unknown Verified 07/13/23 07:06 [Tylenol-Codeine #3] penicillin V Allergy Unknown unknown Verified 07/13/23 07:06 metronidazole [From Flagyl] AdvReac Unknown Unknown Verified 07/13/23 07:06 Bactrim Allergy Unknown Unknown Uncoded 07/13/23 06:39 Home Medications ?Medication ?Instructions ?Recorded ?Confirmed ?Last Taken ?Type albuterol sulfate 90 mcg/actuation inhalation PRN Shortness Of Breath 03/31/20 07/06/23 Unknown History aerosol inhaler Or Wheezing cyanocobalamin (vitamin B-12) 1,000 mcg IM 03/31/20 07/06/23 Unknown History 1,000 mcg/mL injection solution mometasone 0.1 % topical cream appl topical DAILY 03/31/20 07/06/23 Unknown History paroxetine HCl 10 mg tablet 10 mg PO DAILY 03/31/20 07/06/23 Unknown History polyethylene glycol 3350 17 17 g PO DAILY 03/31/20 07/06/23 Unknown History gram/dose oral powder levothyroxine 50 mcg tablet 50 mcg PO DAILY 06/14/20 07/06/23 12/11/22 05:00 History naloxone 4 mg/actuation nasal spray 0 spray intranasal 04/04/22 07/06/23 Unknown History jbtihupdv-mxwgwpxsx-ntitevtc-scop 1 tab PO TID 12/01/22 07/06/23 Unknown History 16.2 mg-0.1037 mg-0.0194 mg tablet (Phenohytro) docusate sodium 100 mg capsule 100 mg PO BID 12/11/22 07/06/23 Unknown History ibuprofen 800 mg tablet 800 mg PO TID 03/12/23 07/06/23 Unknown History omeprazole 20 mg capsule,delayed 20 mg PO DAILY 03/12/23 07/06/23 Unknown History release fluticasone furoate 100 1 inh inhalation DAILY 06/18/23 07/06/23 Unknown History mcg/actuation blister powder for inhalation (Arnuity Ellipta) loratadine 10 mg tablet 10 mg PO DAILY 06/18/23 07/06/23 Unknown History Exam Airway Mallampati Class: II TM Dist: >3cm Neck ROM: Full Partial: Upper and Lower Loose/Missing/Broken Teeth: Yes, Upper and Lower Heart: RRR Lungs: CTA Assessment and Plan Final Anesthetic Review NPO: Yes ASA Class: II Final Preanesthetic Review: Meds/Allgs Chart Reviewed, Consent Obtained/Reviewed and Anes Risks/Benef Reviewed Patient Risk: Low Procedure Risk: Intermediate Anesthetic Plan Anesthetic Plan: MAC: Disposition: Standard PACU
--- NOTE | 2023-07-13 06:04 | MHC.SHP ---
Pre-Procedural Eval Section A - 24 Hr Update-Section A only Date of Service: 07/13/23 The patient is an INPATIENT: No The patient has been examined within 24 hours of the surgical procedure. The History & Physical has been completed within 30 days and I have reviewed it.: Yes Section B - Complete if H&P > 30 days Chief Complaint: Other specified symptoms and signs involving Allergies: Allergies Allergy/AdvReac Type Severity Reaction Status Date / Time sertraline [From ZOLOFT] Allergy Severe GI Verified 07/06/23 10:27 UPSET/LETHARGY/CONFUSION atorvastatin [ATORVASTATIN] Allergy Intermediate SEVER Verified 07/06/23 10:27 MUSCLE/FOOT PAIN oxycodone [OXYCODONE] Allergy Intermediate GI Verified 07/06/23 10:27 UPSET,CONFUSION cefaclor [From Ceclor] Allergy Mild DYSPNEA Verified 07/06/23 10:27 Penicillins Allergy Mild DYSPNEA Verified 07/06/23 10:27 vancomycin [Vancomycin] Allergy Mild ITCHING Verified 07/06/23 10:27 acetaminophen Allergy Unknown Unknown Verified 07/06/23 10:27 [Tylenol-Codeine #3] penicillin V Allergy Unknown unknown Verified 07/06/23 10:27 metronidazole [From Flagyl] AdvReac Unknown Unknown Unverified 07/06/23 10:27 Bactrim Allergy Unknown Unknown Uncoded 07/06/23 10:27 Plan I have reviewed the history and physical and performed a pertinent physical examination on my patient. No changes have occurred unless specified. Time Spent With Patient Time: Total time managing care of this patient today ____ minutes.
[2023-07-13 06:43] VITALS: BMI 33.5
[2023-07-13 06:49] VITALS: BP 114/86; PULSE 90; RESP 18; TEMP 36.3; O2SAT 95; BMI 33.5
[2023-07-13] MEDS: Lactated Ringers 1,000 ML 100 ML IVCONT (07:03)
--- NOTE | 2023-07-13 08:26 | HO.OPN-COLON ---
Colonoscopy Operative Note Operative Note Date of Service: 07/13/23 Narrative: Operative Information Procedure Description: EGD, Colonoscopy Indication: nausea, abnormal bowel habits Anesthesia: MAC FLEXIBLE TRANSORAL UPPER GASTROINTESTINAL ENDOSCOPY AND COLONOSCOPY PROCEDURE NOTE UPPER ENDOSCOPY Consent: Indications for the procedure and potential complications of bleeding, perforation, reaction to medications and missed diagnosis were discussed with the patient and informed consent was obtained. Instrument: Olympus GIF H 190 J mid size upper endoscope Monitoring: Vital signs and clinical assessment, continuous EKG monitoring, Pulse oximetry, Carbon Dioxide monitoring and blood pressure monitoring were done throughout the procedure. Procedure: The patient was placed in the left lateral decubitis position and pre-procedure medications were administered and a bite block was placed. The endoscope was inserted into the mouth and advanced under direct vision to the third part of duodenum. A careful inspection was made as the upper endoscope was withdrawn including a retroflexed examination of the proximal stomach; Findings and interventions are described below. Findings: Larynx:normal Esophagus: GE junction at 38 cm, diaphragm hiatus at 38 cm, edema and swelling at GEJ, bx taken from GEJ and distal esophagus Stomach: Patchy erythema and edema. Biopsies were obtained. Grade 2 flap valve on retroflexed examination of the cardia. Duodenum: Normal bulb and descending duodenum, bx taken Intervention: Biopsies as noted above, COLONOSCOPY Instrument: Olympus variable stiffness pediatric scope 190L Colonoscopy Monitoring: Vital signs and clinical assessment, continuous EKG monitoring, Pulse oximetry, Carbon Dioxide monitoring and blood pressure monitoring were done throughout the procedure. Colon withdrawal time was 20 minutes. Procedure: The patient was placed in the left lateral decubitis position and pre-procedure medications were administered. After a digital rectal examination of the ano-rectum, the video colonoscope was inserted into the rectum and advanced through the colon to the cecum/TI. The colonoscope was slowly withdrawn in a retrograde panoramic fashion and the colon mucosa was carefully examined including a retroflexed view of the rectum. Findings and interventions are described below. Procedure Difficulty: easy Findings: Terminal Ileum-normal, bx taken Bx taken from right, left colon, sigmoid and rectum Cecum:normal Ascending Colon: 6-7 mm sessile polyp removed with cold snare Transverse Colon -normal Descending Colon:normal Sigmoid Colon: moderate severe diverticulosis with luminal narrowing and patchy erythema Rectum: Retroflexion with small internal hemorrhoids, grade I, patchy erythema and congestion consistent with possible prolapse, x 2 sessile polyps 5-7 mm removed with cold forceps Anorectum - normal Colon preparation: [place] Bowel Preparation Scale Right colon; 2 Transverse colon: 2 Left colon; 2 (0 = Unprepared colon segment with mucosa not seen due to solid stool that cannot be cleared. 1 = Portion of mucosa of the colon segment seen, but other areas of the colon segment not well seen due to staining, residual stool and/or opaque liquid. 2 = Minor amount of residual staining, small fragments of stool and/or opaque liquid, but mucosa of colon segment seen well. 3 = Entire mucosa of colon segment seen well with no residual staining, small fragments of stool or opaque liquid) Impression and Post Procedure Diagnosis: Endoscopy Findings: gastritis esophagitis Colonoscopy Findings: diverticulosis colon polyps internal hemorrhoids non specific proctitis Plan: Await Pathology results Repeat Colonoscopy in 5 years due to polyps or earlier if clinically indicated High fiber diet leaflet avoid straining at stool, epsom salts and sitz bath, anusol supps or cream if h pylori pos then treat Above findings were reviewed with the patient and relevant handouts were provided if indicated.
[2023-07-13 08:30] VITALS: BP 105/72; PULSE 83; RESP 18; TEMP 36.1; O2SAT 97
[2023-07-13 08:45] VITALS: BP 122/71; PULSE 77; RESP 18; TEMP 36.1; O2SAT 96
== END 2023-07-13 09:20 | disposition home or self-care (01) ==
PROVIDERS: PCP Internal Medicine Geriatric Medicine; Visit Provider Internal Medicine Gastroenterology
PROC: (CPT 45385; principal; 2023-07-13 07:30)
DX: R19.4 Change in bowel habit (principal); R11.0 Nausea; K63.5 Polyp of colon; K62.1 Rectal polyp; K57.30 Diverticulosis of large intestine without perforation or abscess without bleeding; K52.9 Noninfective gastroenteritis and colitis, unspecified; K62.89 Other specified diseases of anus and rectum; K64.0 First degree hemorrhoids; K20.90 Esophagitis, unspecified without bleeding; K29.70 Gastritis, unspecified, without bleeding; K29.80 Duodenitis without bleeding; Z88.0 Allergy status to penicillin; Z88.6 Allergy status to analgesic agent; Z88.8 Allergy status to other drugs, medicaments and biological substances
CPT/HCPCS: 45385; 45380; 43239; 88305; 88313; 88342; J2704

== ENCOUNTER → 2023-07-13 06:24 | Outpatient (BNV) | payer MEDICARE, MEDICAID, SELFPAY | PROVIDERS: PCP Internal Medicine Geriatric Medicine; Visit Provider Internal Medicine Gastroenterology | DX: R11.0 Nausea (principal); K29.70 Gastritis, unspecified, without bleeding; K20.90 Esophagitis, unspecified without bleeding; K63.5 Polyp of colon; K52.9 Noninfective gastroenteritis and colitis, unspecified; K62.89 Other specified diseases of anus and rectum | CPT/HCPCS: 43239; 45380; 45385 ==

== ENCOUNTER → 2023-07-26 09:20 | Outpatient (BNVA) | payer MEDICARE, MEDICAID, SELFPAY | PROVIDERS: PCP Internal Medicine Geriatric Medicine; Visit Provider Surgery | DX: Z48.00 Encounter for change or removal of nonsurgical wound dressing (principal) | CPT/HCPCS: 99211 ==

== ENCOUNTER 2023-08-09 13:43 | Outpatient (AMB) | payer MEDICARE, MEDICAID, SELFPAY ==
--- NOTE | 2023-08-09 13:48 | MHC.OFFVIS ---
Vital Signs 08/09/23 13:54 Height 5 ft 6 in Weight 207 lb 3.752 oz BMI 33.4 Respiration 16 Intake Visit Reasons: Incision site check, leaking Intake Note: Patient is seen in office for wound check, post abdominal seroma. 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 Accompanied by: Self / Same As Patient Allergies sertraline [From ZOLOFT] Allergy (Severe, Verified 08/09/23 13:54) GI UPSET/LETHARGY/CONFUSION atorvastatin [ATORVASTATIN] Allergy (Intermediate, Verified 08/09/23 13:54) SEVER MUSCLE/FOOT PAIN oxycodone [OXYCODONE] Allergy (Intermediate, Verified 08/09/23 13:54) GI UPSET,CONFUSION cefaclor [From Ceclor] Allergy (Mild, Verified 08/09/23 13:54) DYSPNEA Penicillins Allergy (Mild, Verified 08/09/23 13:54) DYSPNEA vancomycin [Vancomycin] Allergy (Mild, Verified 08/09/23 13:54) ITCHING acetaminophen [Tylenol-Codeine #3] Allergy (Unknown, Verified 08/09/23 13:54) Unknown penicillin V Allergy (Unknown, Verified 08/09/23 13:54) unknown metronidazole [From Flagyl] Adverse Reaction (Unknown, Verified 08/09/23 13:54) Unknown Bactrim Allergy (Unknown, Uncoded 08/09/23 13:54) Unknown HPI Comments Details: Patient returns for wound check of her incision in the right upper quadrant. She noted some discharge and pain below the incision. She continues to feel hardness below the incision. She is concerned about a collection of fluid redeveloping. [facility] Medical History Abdominal wall mass Female bladder prolapse B12 deficiency Depression Hyperlipidemia Osteopenia Personal history of nicotine dependence Obesity Thyroid nodule Hypothyroidism (~2014) Surgical History Hx of abdominal surgery (04/30/23) History of incisional hernia repair (12/11/22) Previous section Hx of laparoscopy History of partial hysterectomy (05/2022) History of colonoscopy History of foot surgery Hx of mammogram Hx of cholecystectomy Hx of tonsillectomy History of esophagogastroduodenoscopy (EGD) Family History Father Heart disease Mother Cardiomyopathy Goiter Maternal Grandfather Stomach cancer Social History Alcohol intake: current Alcohol intake frequency: does not drink Patient Tobacco Use Status: Current everyday Tobacco user Tobacco use type: Cigarette Cigarette Packs Per Day: 0.5 Cigarettes Per Day: 10.0 Years Smoked: 40 - onset 22, 1.5-2ppd x 38yrs, 60+PYH Second Hand Smoke Exposure: No Physical Exam Vital Signs: Last Vital Signs Resp 16 08/09/23 13:54 BMI result Body Mass Index 33.4 Const General: no acute distress Nutritional Appearance: well nourished Resp Effort & Inspection: normal respiratory effort GI Other: Midline incision is now clean, dry and intact without any redness or discharge. The incision in the right upper quadrant is somewhat retracted causing a cave like appearance with some skin excoriation probably from moisture. There may actually be a fungal skin infection associated with this. No skin opening is identified. Normal scar tissue was noted below the skin. No evidence of fluctuance. Assessment & Plan Assessment & Plan (1) Fungal skin infection: Code(s): B36.9 - Superficial mycosis, unspecified Category: Medical Plan Patient appears to be have a cutaneous fungal infection which may benefit from applying nystatin cream. She should do this least once a day and leave the wound open to dry out. She should follow up as needed. Medications: New nystatin 1 appl topical BID 15 grams 0RF B36.9 - Superficial mycosis, unspecified Coding Level of Care Code Est Pt Level 2 (69490) Diagnoses Fungal skin infection B36.9
[2023-08-09 13:54] VITALS: RESP 16; BMI 33.4
== END 2023-08-09 14:10 | disposition home or self-care (01) ==
PROVIDERS: PCP Internal Medicine Geriatric Medicine; Visit Provider Surgery
DX: B36.9 Superficial mycosis, unspecified (principal)
CPT/HCPCS: 99214

== ENCOUNTER → 2023-08-09 13:43 | Outpatient (BNVA) | payer MEDICARE, MEDICAID, SELFPAY | PROVIDERS: PCP Internal Medicine Geriatric Medicine; Visit Provider Surgery | DX: B36.9 Superficial mycosis, unspecified (principal) | CPT/HCPCS: 99212 ==

== ENCOUNTER 2023-09-06 11:22 | Outpatient (AMB) | payer MEDICARE, MEDICAID, SELFPAY ==
--- NOTE | 2023-09-06 11:29 | A.OFFVIS_ITS ---
Vital Signs 3 09/06/23 11:34 Height 5 ft 6 in Weight 208 lb BMI 33.6 BP 141/82 H Blood Pressure Location Lt brachial Position Sitting Pulse 89 Intake Visit Reasons: Wound check Intake Note: Patient is seen in office for wound check, post abdominal seroma. 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 Accompanied by: Self / Same As Patient Allergies sertraline [From ZOLOFT] Allergy (Severe, Verified 09/06/23 11:35) GI UPSET/LETHARGY/CONFUSION atorvastatin [ATORVASTATIN] Allergy (Intermediate, Verified 09/06/23 11:35) SEVER MUSCLE/FOOT PAIN oxycodone [OXYCODONE] Allergy (Intermediate, Verified 09/06/23 11:35) GI UPSET,CONFUSION cefaclor [From Ceclor] Allergy (Mild, Verified 09/06/23 11:35) DYSPNEA Penicillins Allergy (Mild, Verified 09/06/23 11:35) DYSPNEA vancomycin [Vancomycin] Allergy (Mild, Verified 09/06/23 11:35) ITCHING acetaminophen [Tylenol-Codeine #3] Allergy (Unknown, Verified 09/06/23 11:35) Unknown penicillin V Allergy (Unknown, Verified 09/06/23 11:35) unknown metronidazole [From Flagyl] Adverse Reaction (Unknown, Verified 09/06/23 11:35) Unknown Bactrim Allergy (Unknown, Uncoded 09/06/23 11:35) Unknown Medication List - Last Reconciled 09/06/23 by Sp Dubois MD [ABD gauze pads 1 box As directed] albuterol sulfate 90 mcg/actuation inhalation PRN cyanocobalamin (vitamin B-12) 1,000 mcg IM docusate sodium 100 mg PO BID fluticasone furoate 100 mcg/actuation (Arnuity Ellipta) 1 inh inhalation DAILY ibuprofen 800 mg PO TID [Kerlix gauze pads 1 box As directed] levothyroxine 50 mcg PO DAILY loratadine 10 mg PO DAILY mesalamine 4 grams (60 mL) [place] BEDTIME mesalamine ER (Apriso) 1.5 grams (4 x 0.375 gram) PO QAM mometasone 0.1% appl topical DAILY naloxone 4 mg/actuation 0 sprays intranasal nystatin 400,000 units (4 mL) PO QID 7 days nystatin 1 appl topical BID omeprazole 20 mg PO DAILY paroxetine HCl 10 mg PO DAILY ukkqacpkv-wmhnvr-wgmemmkk-scop 16.2-0.1037 -0.0194 mg (Phenohytro) 1 tab PO TID polyethylene glycol 3350 17 grams PO DAILY sodium,potassium,mag sulfates 17.5-3.13-1.6 gram (Suprep Bowel Prep Kit) DILUTE; drink 1/2 at 6-8 pm and half at 11 PM- 1AM HPI Comments Details: 62-year-old female patient with a prior history of incisional hernia repair returning today for wound check. She reports some whitish changes in the skin in the right upper quadrant at the site of a previous seroma. After she takes a shower sometimes the whitish piece is removed but subsequently returns. She also feels a palpable nodule under the skin further up in the right upper quadrant. She is concerned about further fluid accumulating. [facility] Medical History Abdominal wall mass Female bladder prolapse B12 deficiency Depression Hyperlipidemia Osteopenia Personal history of nicotine dependence Obesity Thyroid nodule Hypothyroidism (~2014) Surgical History Hx of abdominal surgery (04/30/23) History of incisional hernia repair (12/11/22) Previous section Hx of laparoscopy History of partial hysterectomy (05/2022) History of colonoscopy History of foot surgery Hx of mammogram Hx of cholecystectomy Hx of tonsillectomy History of esophagogastroduodenoscopy (EGD) Family History Father Heart disease Mother Cardiomyopathy Goiter Maternal Grandfather Stomach cancer Social History Alcohol intake: current Alcohol intake frequency: does not drink Patient Tobacco Use Status: Current everyday Tobacco user Tobacco use type: Cigarette Cigarette Packs Per Day: 0.5 Cigarettes Per Day: 10.0 Years Smoked: 40 - onset 22, 1.5-2ppd x 40yrs, 60+PYH Second Hand Smoke Exposure: No Review of Systems Const All systems reviewed & are unremarkable except as noted in HPI and below Denies chills, Denies fever(s), Denies headache(s), Denies poor appetite and Denies weakness ENT Denies headache(s) Card Denies chest pain, Denies irregular heart rhythm, Denies palpitations and Denies dyspnea Resp Denies cough, Denies excessive phlegm production and Denies dyspnea GI Reports abdominal pain, Denies bloating, Denies change in bowel habits, Denies constipation, Reports heartburn, Denies diarrhea, Denies nausea and Denies vomiting Denies urinary frequency Musc Denies back pain, Denies muscle weakness and Denies numbness Skin/Breast Denies changing lesions and Denies unusual bruising Neuro Denies headache(s), Denies numbness, Denies paresthesias and Denies weakness Psych Denies anxiety and Denies depression Endo Denies palpitations Romel/Lymph Denies lymphadenopathy Physical Exam Vital Signs: Last Vital Signs Pulse 89 09/06/23 11:34 BP 141/82 H 09/06/23 11:34 BMI result Body Mass Index 33.6 Const General: no acute distress Nutritional Appearance: well nourished Resp Effort & Inspection: normal respiratory effort GI Other: Midline incision is now clean, dry and intact without any redness or discharge. The incision in the right upper quadrant is somewhat retracted but no further fungal infection is identified. Skin is dry and intact without discharge. No hernia recurrence is identified. Subcutaneous palpable lump feels consistent with scar tissue from the prior excision. No evidence of fluctuance or erythema. Abdomen image: 2 1. Palpable lump right upper quadrant consistent with scar tissue Assessment & Plan Assessment & Plan (1) Fungal skin infection: Code(s): B36.9 - Superficial mycosis, unspecified Category: Medical Plan Patient returns for an abdominal wound check; wounds are clean and intact without redness or discharge. The previous fungal skin infection is now resolved. Coding Level of Care Code Est Pt Level 3 (18036) Diagnoses Fungal skin infection B36.9
[2023-09-06 11:34] VITALS: BP 141/82; PULSE 89; BMI 33.6
== END 2023-09-06 11:42 | disposition home or self-care (01) ==
PROVIDERS: PCP Internal Medicine Geriatric Medicine; Visit Provider Surgery
DX: B36.9 Superficial mycosis, unspecified (principal)
CPT/HCPCS: 99213

== ENCOUNTER → 2023-09-06 11:22 | Outpatient (BNVA) | payer MEDICARE, MEDICAID, SELFPAY | PROVIDERS: PCP Internal Medicine Geriatric Medicine; Visit Provider Surgery | DX: B36.9 Superficial mycosis, unspecified (principal) | CPT/HCPCS: 99212 ==

== ENCOUNTER 2023-09-28 13:03 | Emergency (ER) | payer MEDICARE, MEDICAID, SELFPAY ==
--- NOTE | ~2023-09-28 | XR_ITS ---
EXAMINATION: XR KNEE, RIGHT CLINICAL INFORMATION: Pain and swelling. Unable to bear weight. COMPARISON: Right knee radiographs dated 06/21/2017. TECHNIQUE: Four views of the right knee. FINDINGS: There is no fracture or dislocation. Joint spaces are well-maintained. There may be a very small suprapatellar effusion. Regional soft tissue is normal. XR/XR knee RT 4V IMPRESSION: No fracture or dislocation. Possible small right suprapatellar joint effusion.
--- NOTE | ~2023-09-28 | XR_ITS ---
EXAMINATION: XR TIBIA AND FIBULA, LEFT CLINICAL INFORMATION: Pain status post fall. COMPARISON: Left foot radiographs dated 11/27/2017. TECHNIQUE: AP and lateral views of the left tibia and fibula were obtained. FINDINGS: The left tibia and left fibula are intact. There is no dislocation. The ankle mortise appears maintained. The knee joint appears maintained. There are screws within the proximal aspect of the first metatarsal bone. Regional soft tissue appears normal. XR/XR tibia fibula LT 2V IMPRESSION: No fracture or dislocation.
--- NOTE | 2023-09-28 13:19 | ED_ITS ---
HPI - Extremity Injury (Lower) General Chief Complaint: Extremity Injury, Lower Stated Complaint: Fall 09/27/23 - knee injury Time Seen by Provider: 09/28/23 13:35 Source: patient and RN notes reviewed Mode of arrival: ambulatory Limitations: no limitations History of Present Illness ED Provider: Tamica Bullard PA-C HPI Narrative: This is a 62-year-old female who presents emergency department with complaints of right knee pain and left reza pain status post mechanical fall. Patient states that she accidentally slipped on a grape in the grocery store 1 week ago and fell directly onto her right knee. She states that during this fall she twisted her knee. She states that she has been resting, icing, elevating and using Huber wrap at home however states that she continues to have pain. She states that the pain worsens with weight-bearing and going down stairs. She previously was seen by the orthopedic team for knee pain in the past, however states that she was not a candidate for any surgical intervention. She denies hitting her head or loss of consciousness during this fall. She denies any fevers or chills. No other complaints or concerns at this time. MD complaint: knee injury Onset (ago): week(s) Type of Injury: blunt Place: street/outdoors Severity: moderate Relieving factors: NSAID, cold therapy and immobilization Exacerbating factors: weight bearing, movement and palpation Context: fall and direct blow Associated symptoms: swelling Other symptoms: none Treatments prior to arrival: cold therapy, bandage and NSAIDS Related Data Home Medications ?Medication ?Instructions ?Recorded ?Confirmed albuterol sulfate 90 mcg/actuation inhalation PRN Shortness Of Breath 03/31/20 09/06/23 aerosol inhaler Or Wheezing cyanocobalamin (vitamin B-12) 1,000 mcg IM 03/31/20 09/06/23 1,000 mcg/mL injection solution mometasone 0.1 % topical cream appl topical DAILY 03/31/20 09/06/23 paroxetine HCl 10 mg tablet 10 mg PO DAILY 03/31/20 09/06/23 polyethylene glycol 3350 17 17 g PO DAILY 03/31/20 09/06/23 gram/dose oral powder levothyroxine 50 mcg tablet 50 mcg PO DAILY 06/14/20 09/06/23 naloxone 4 mg/actuation nasal spray 0 spray intranasal 04/04/22 09/06/23 pwcaasado-txtxcuaav-iakrhoxs-scop 1 tab PO TID 12/01/22 09/06/23 16.2 mg-0.1037 mg-0.0194 mg tablet (Phenohytro) docusate sodium 100 mg capsule 100 mg PO BID 12/11/22 09/06/23 ibuprofen 800 mg tablet 800 mg PO TID 03/12/23 09/06/23 omeprazole 20 mg capsule,delayed 20 mg PO DAILY 03/12/23 09/06/23 release fluticasone furoate 100 1 inh inhalation DAILY 06/18/23 09/06/23 mcg/actuation blister powder for inhalation (Arnuity Ellipta) loratadine 10 mg tablet 10 mg PO DAILY 06/18/23 09/06/23 Previous Rx's ?Medication ?Instructions ?Recorded nystatin 100,000 unit/mL oral 400,000 unit (4 mL) PO QID 7 days 12/20/22 suspension #112 mL ABD gauze pads 1 box #1 ea 05/21/23 Kerlix gauze pads 1 box #1 ea 05/21/23 sodium,potassium,mag sulfates 17.5 See Rx Instructions PO .COMPLEX 06/18/23 gram-3.13 gram-1.6 gram oral soln #354 mL (Suprep Bowel Prep Kit) mesalamine 0.375 gram 1.5 g (4 x 0.375 gram) PO QAM #120 07/18/23 capsule,extended release 24 hr caps (Apriso) mesalamine 4 gram/60 mL enema 4 g (60 mL) SD BEDTIME #1,680 mL 07/18/23 nystatin 100,000 unit/gram topical 1 appl topical BID #15 grams 08/09/23 cream Allergies Allergy/AdvReac Type Severity Reaction Status Date / Time sertraline [From ZOLOFT] Allergy Severe GI Verified 09/28/23 13:24 UPSET/LETHARGY/CONFUSION atorvastatin [ATORVASTATIN] Allergy Intermediate SEVER Verified 09/28/23 13:24 MUSCLE/FOOT PAIN oxycodone [OXYCODONE] Allergy Intermediate GI Verified 09/28/23 13:24 UPSET,CONFUSION cefaclor [From Ceclor] Allergy Mild DYSPNEA Verified 09/28/23 13:24 Penicillins Allergy Mild DYSPNEA Verified 09/28/23 13:24 vancomycin [Vancomycin] Allergy Mild ITCHING Verified 09/28/23 13:24 acetaminophen Allergy Unknown Unknown Verified 09/28/23 13:24 [Tylenol-Codeine #3] penicillin V Allergy Unknown unknown Verified 09/28/23 13:24 metronidazole [From Flagyl] AdvReac Unknown Unknown Verified 09/28/23 13:24 Bactrim Allergy Unknown Unknown Uncoded 09/28/23 13:24 Review of Systems Review of Systems: Yes all other systems are reviewed and are negative Constitutional: Constitutional: Reports as per [facility] Past Medical History Medical History Abdominal wall mass Female bladder prolapse B12 deficiency Depression Hyperlipidemia Osteopenia Personal history of nicotine dependence Obesity Thyroid nodule Hypothyroidism (~2014) Surgical History Hx of abdominal surgery (04/30/23) History of incisional hernia repair (12/11/22) Previous section Hx of laparoscopy History of partial hysterectomy (05/2022) History of colonoscopy History of foot surgery Hx of mammogram Hx of cholecystectomy Hx of tonsillectomy History of esophagogastroduodenoscopy (EGD) Family History Family History Father Heart disease Mother Cardiomyopathy Goiter Maternal Grandfather Stomach cancer Social History Social History Alcohol intake: current Alcohol intake frequency: does not drink Patient Tobacco Use Status: Current everyday Tobacco user Tobacco use type: Cigarette Cigarette Packs Per Day: 0.5 Cigarettes Per Day: 10.0 Years Smoked: 40 - onset 22, 1.5-2ppd x 40yrs, 62+PYH Second Hand Smoke Exposure: No Advance Directives: No Advance Directives Information Provided: No Do you have a plan to hurt others: No Plan Physical Exam Vital Signs: Vital Signs: Last Vital Signs Temp 98.4 F 09/28/23 16:02 Pulse 66 09/28/23 16:02 Resp 16 09/28/23 16:02 BP 113/64 09/28/23 16:02 Pulse Ox 97 09/28/23 16:02 O2 Del Method Room Air 09/28/23 16:02 BMI result Body Mass Index 34.0 Const: General: cooperative, comfortable and no acute distress Orientation/consciousness: patient oriented x3 Limitations: no limitations HEENT: Head: Yes normal to inspection, Yes normocephalic and Yes atraumatic Ears: hearing grossly normal bilaterally General nose exam: Normal external nose present Face and sinus: Yes normal facial exam Mouth: Normal oral and palatal mucosa present, oropharynx normal and moist mucous membranes Throat: Yes posterior oropharynx normal Eyes: General: appearance normal, both eyes and all related structures Eyelids: Yes eyelids normal Conjunctivae: conjunctivae normal Sclerae: sclerae normal Pupils: Equal, round and reactive pupils present EOM: EOMs intact bilaterally Neck: Neck: Yes normal visual inspection, Yes full ROM and Yes no lymp hadenopathy Lymphatic: no lymphadenopathy noted Chest: Chest palpation & inspection: normal inspection of the chest Resp: Effort & Inspection: normal respiratory effort and able to speak in complete sentences Auscultation: clear to auscultation bilaterally, no crackles, no rales, no rhonchi and no wheezes Cardio: Rate: regular rate Rhythm: regular rhythm Heart sounds: S1 normal heart sound present and S2 normal heart sound present GI: Inspection: Yes normal to inspection Skin: General skin exam: no rashes or lesions noted Trauma: no lacerations or abrasions Wounds: no wounds Neuro: General: patient oriented x3 and moves all extremities Cranial nerves: Yes Equal, round and reactive pupils present Extrem: Other: Right knee with ecchymosis, and tenderness to palpation along the medial aspect, full range of motion of the knee without difficulty. No overlying erythema or warmth. No patellar ballottement. Negative anterior-posterior drawer test. No pain with varus and valgus strain. Negative patellar grind test Left mid reza with hematoma noted, no bony step-off or deformity. No open wounds, erythema or warmth. General: Yes normal to inspection Right upper extremity: normal to inspection Left upper extremity: normal to inspection Right lower extremity: normal to inspection Left lower extremity: normal to inspection Course Course Course Narrative: This is a Rapid Medical Exam performed in triage by Nella Mercer PA-C. Full HPI, ROS and PE to be performed by primary ED provider. 62 year-old female w/ PMHx p GERD, obesity, hypothyroid, resenting to the ED c/o R knee pain s/p slip & fall at grocery store on grape 8 days ago.. denies head trauma or LOC. does not take AC. taking Motrin w/o relief PE: ambulating w/limping gait with cane. +R knee with swelling & ttp. L reza w/swelling and ecchymosis Plan: XR Medical Decision Making Medical Decision Making MDM Narrative: This is a 62-year-old female who presents emergency department with complaints of right knee pain and left tib-fib pain status post mechanical fall which occurred 1 week ago. No head strike or LOC. On arrival, vital signs revealing slight hyper tension at 163/97, all other vital signs within normal limits. X- ray of the right knee and left tib-fib revealing no acute bony abnormalities. There is a slight joint effusion noted to the right knee. Discussed findings with patient, she will follow-up with orthopedics for further treatment and recommendations. Patient given Huber wrap. Given strict return precautions. She understands and agrees with plan. Patient stable for discharge Differential Diagnosis Differential Diagnoses: The differential diagnosis associated with the presentation includes Contusion, fracture, sprain, strain Radiology Impression Discussion of test interpretation with radiology: I have reviewed the radiologist's reading. Radiologist Impression: FINDINGS: The left tibia and left fibula are intact. There is no dislocation. The ankle mortise appears maintained. The knee joint appears maintained. There are screws within the proximal aspect of the first metatarsal bone. Regional soft tissue appears normal. XR/XR tibia fibula LT 2V IMPRESSION: No fracture or dislocation. XR/XR knee RT 4V IMPRESSION: No fracture or dislocation. Possible small right suprapatellar joint effusion. Dictated By: Charly Jackson Jr, DO Signed By: <Electronically signed by Charly Jackson Jr, DO in OV> External Record Review External record reviewed: Prior outpatient labs Discharge Plan Discharge Clinical Impression: Knee pain, right Patient Disposition: Home, Self-Care Instructions: Knee Pain (ED) Additional Instructions: You were seen in the emergency department due to right knee pain. Your x-ray does not show any broken bones. You do have moderate swelling in this area. Please rest, ice, elevate, and use Huber wrap. You need follow-up with the orthopedic team as you may have a ligament injury. Call to make an appointment. Alternate between ibuprofen and Tylenol as needed for pain. If any new or worsening symptoms occur including but not limited to worsening pain, fevers, chills, redness or swelling, please return for re-evaluation. Prescriptions: No Action (DME) ABD gauze pads 1 box 9x5 See Rx Instructions .Route .MEDSUPPLY Qty: 1 6RF Rx Instructions: As directed (DME) Kerlix gauze pads 1 box 6x6 See Rx Instructions .Route .MEDSUPPLY Qty: 1 1RF Rx Instructions: As directed mesalamine [Apriso] 0.375 gram capsule,extended release 24hr 1.5 g PO QAM Qty: 120 2RF mesalamine 4 gram/60 mL enema 4 g SD BEDTIME Qty: 1680 0RF docusate sodium 100 mg capsule 100 mg PO BID levothyroxine 50 mcg tablet 50 mcg PO DAILY cyanocobalamin (vitamin B-12) 1,000 mcg/mL solution 1,000 mcg IM paroxetine HCl 10 mg tablet 10 mg PO DAILY polyethylene glycol 3350 17 gram/dose powder 17 g PO DAILY albuterol sulfate 90 mcg/actuation HFA aerosol inhaler inhalation PRN (Reason: Shortness Of Breath Or Wheezing) mometasone 0.1 % cream topical DAILY naloxone 4 mg/actuation spray,non-aerosol 0 spray intranasal ibuprofen 800 mg tablet 800 mg PO TID omeprazole 20 mg capsule,delayed release(DR/EC) 20 mg PO DAILY loratadine 10 mg tablet 10 mg PO DAILY Arnuity Ellipta 100 mcg/actuation blister with device 1 inh inhalation DAILY sodium,potassium,mag sulfates [Suprep Bowel Prep Kit] 17.5-3.13-1.6 gram recon soln See Rx Instructions PO .COMPLEX Qty: 354 0RF Rx Instructions: DILUTE; drink 1/2 at 6-8 pm and half at 11 PM- 1AM nystatin 100,000 unit/mL suspension 400,000 unit PO QID 7 Days Qty: 112 0RF Rx Instructions: administer 1/2 of dose in each side of the mouth, retain in mouth as long as possible mlksmuozv-ohexms-iorlrkpp-scop [Phenohytro] 16.2-0.1037 -0.0194 mg tablet 1 tab PO TID nystatin 100,000 unit/gram cream 1 appl topical BID Qty: 15 0RF Referrals: [facility] [Provider Group] Interventions: ED Discharge Assessment Last Done: 09/28/23 16:02 Discharge Date/Time: 09/28/23 16:03 Print Language: [place] Islander
[2023-09-28 13:20] VITALS: BP 163/97; PULSE 83; RESP 18; TEMP 36.7; O2SAT 96; BMI 34.0
[2023-09-28 16:02] VITALS: BP 113/64; PULSE 66; RESP 16; TEMP 36.9; O2SAT 97
== END 2023-09-28 16:03 | disposition home or self-care (01) ==
PROVIDERS: Emergency Provider Emergency Medicine; PCP Internal Medicine Geriatric Medicine
DX: M25.561 Pain in right knee (principal)
CPT/HCPCS: 73564; 73590; 99283

== ENCOUNTER 2023-10-11 13:55 | Outpatient (AMB) | payer MEDICARE, MEDICAID, SELFPAY ==
[2023-10-11 14:00] VITALS: BMI 33.9
--- NOTE | 2023-10-11 14:00 | MHC.OFFVIS ---
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 Patient reports that on 09/20/23 she was in the grocery store when she slipped on a grape and twisted her knee. Patient reports that she is able to walk but she is having severe pain in the knee cap with going up and down stairs. Allergies sertraline [From ZOLOFT] Allergy (Severe, Verified 10/12/23 09:16) GI UPSET/LETHARGY/CONFUSION atorvastatin [ATORVASTATIN] Allergy (Intermediate, Verified 10/12/23 09:16) SEVER MUSCLE/FOOT PAIN oxycodone [OXYCODONE] Allergy (Intermediate, Verified 10/12/23 09:16) GI UPSET,CONFUSION cefaclor [From Ceclor] Allergy (Mild, Verified 10/12/23 09:16) DYSPNEA Penicillins Allergy (Mild, Verified 10/12/23 09:16) DYSPNEA vancomycin [Vancomycin] Allergy (Mild, Verified 10/12/23 09:16) ITCHING acetaminophen [Tylenol-Codeine #3] Allergy (Unknown, Verified 10/12/23 09:16) Unknown penicillin V Allergy (Unknown, Verified 10/12/23 09:16) unknown metronidazole [From Flagyl] Adverse Reaction (Unknown, Verified 10/12/23 09:16) Unknown Bactrim Allergy (Unknown, Uncoded 10/12/23 09:16) Unknown HPI 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 Patient reports that on 09/20/23 she was in the grocery store when she slipped on a grape and twisted her knee. Patient reports that she is able to walk but she is having severe pain in the knee cap with going up and down stairs. It is improving but still painful. COUNTS INCLUDE 234 BEDS AT THE [facility] Medical History Abdominal wall mass Female bladder prolapse B12 deficiency Depression Hyperlipidemia Osteopenia Personal history of nicotine dependence Obesity Thyroid nodule Hypothyroidism (~2014) Surgical History Hx of abdominal surgery (04/30/23) History of incisional hernia repair (12/11/22) Previous section Hx of laparoscopy History of partial hysterectomy (05/2022) History of colonoscopy History of foot surgery Hx of mammogram Hx of cholecystectomy Hx of tonsillectomy History of esophagogastroduodenoscopy (EGD) Family History Father Heart disease Mother Cardiomyopathy Goiter Maternal Grandfather Stomach cancer Social History Alcohol intake: current Alcohol intake frequency: does not drink Patient Tobacco Use Status: Current everyday Tobacco user Tobacco use type: Cigarette Cigarette Packs Per Day: 0.5 Cigarettes Per Day: 10.0 Years Smoked: 40 - onset 22, 1.5-2ppd x 40yrs, 62+PYH Second Hand Smoke Exposure: No Physical Exam Vital Signs: BMI result Body Mass Index 33.9 Extrem Other: On physical exam she has full range of motion she walks without antalgia. There is moderate tenderness to palpation over the anterior knee with resolving ecchymosis. Results Reviewed Results Reviewed: I personally reviewed relevant radiographs. Radiographs were reviewed and I suspect there is a very small fracture of the distal pole of the patella. There is no displacement. Assessment & Plan Assessment & Plan (1) Patella fracture: Code(s): S82.009A - Unspecified fracture of unspecified patella, initial encounter for closed fracture Category: Medical Plan: Nondisplaced and small distal pole patella fracture. She is walking without difficulty in his full range of motion. There is no pain with resisted leg extension. I recommend she continue to engage in activity as tolerated. May follow up if pain persists but not necessary otherwise. Coding Level of Care Code New Pt Level 3 (11076) Diagnoses Patella fracture S82.009A
== END 2023-10-11 14:35 | disposition home or self-care (01) ==
PROVIDERS: PCP Internal Medicine Geriatric Medicine; Visit Provider Orthopaedic Surgery
DX: S82.009A Unspecified fracture of unspecified patella, initial encounter for closed fracture (principal); W01.0XXA Fall on same level from slipping, tripping and stumbling without subsequent striking against object, initial encounter
CPT/HCPCS: 99203

== ENCOUNTER → 2023-10-11 13:55 | Outpatient (BNVA) | payer MEDICARE, MEDICAID, SELFPAY | PROVIDERS: PCP Internal Medicine Geriatric Medicine; Visit Provider Orthopaedic Surgery | DX: S82.001A Unspecified fracture of right patella, initial encounter for closed fracture (principal); W01.198A Fall on same level from slipping, tripping and stumbling with subsequent striking against other object, initial encounter; Y93.01 Activity, walking, marching and hiking; Y92.512 Supermarket, store or market as the place of occurrence of the external cause; Y99.9 Unspecified external cause status | CPT/HCPCS: 99202 ==

== ENCOUNTER 2023-10-12 08:54 | Outpatient (AMB) | payer MEDICARE, MEDICAID, SELFPAY ==
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
[2023-10-12 09:16] VITALS: BP 136/84; PULSE 81; BMI 33.3
== END 2023-10-12 09:45 | disposition home or self-care (01) ==
PROVIDERS: PCP Internal Medicine Geriatric Medicine; Visit Provider Student in an Organized Health Care Education/Training Program
DX: E03.9 Hypothyroidism, unspecified (principal); E04.1 Nontoxic single thyroid nodule
CPT/HCPCS: 99214

== ENCOUNTER → 2023-10-12 08:54 | Outpatient (BNVA) | payer MEDICARE, MEDICAID, SELFPAY | PROVIDERS: PCP Internal Medicine Geriatric Medicine; Visit Provider Student in an Organized Health Care Education/Training Program | DX: E06.3 Autoimmune thyroiditis (principal); E04.1 Nontoxic single thyroid nodule | CPT/HCPCS: 99212 ==

== ENCOUNTER 2023-11-08 10:26 | Outpatient (REF) | payer MEDICARE, MEDICAID, SELFPAY ==
[2023-11-08 11:32] LABS: Anion Gap 11 (12-20); Blood Urea Nitrogen 12 mg/dL (9-16); Calcium 9.9 mg/dL (8.4-10.2); Carbon Dioxide 25 mmol/L (22-29); Chloride 108 mmol/L (96-108); Estimated Glomerular Filt Rate > 60; Glucose Random 93 mg/dL (60-115); Sodium 140 mmol/L (135-145)
[2023-11-08 11:41] LABS: Free T4 (Free Thyroxine) 1.73 ng/dL (0.71-1.85); Thyroid Stimulating Hormone 3.96 uIU/mL (0.32-4.0)
[2023-11-08 11:41] LABS: Vitamin D 25-OH Total 13.4 ng/mL (>30)
[2023-11-08 11:51] LABS: Folate 6.2 ng/mL (> or = 4.0); Vitamin B12 582 pg/mL (200-900)
== END 2023-11-08 10:27 | disposition home or self-care (01) ==
LOC: HO.LAB 10:26
PROVIDERS: Absent Provider Student in an Organized Health Care Education/Training Program; PCP Internal Medicine Geriatric Medicine; Visit Provider Internal Medicine Geriatric Medicine
DX: E04.1 Nontoxic single thyroid nodule (principal); T39.395A Adverse effect of other nonsteroidal anti-inflammatory drugs [NSAID], initial encounter; R53.83 Other fatigue; E03.9 Hypothyroidism, unspecified; K90.89 Other intestinal malabsorption; K29.60 Other gastritis without bleeding
CPT/HCPCS: 36415; 80048; 82306; 82607; 82746; 84439; 84443

== ENCOUNTER 2023-11-09 14:30 | Outpatient (REF) | payer MEDICARE, MEDICAID, SELFPAY ==
--- NOTE | ~2023-11-09 | MR_ITS ---
EXAMINATION: MR LUMBAR SPINE WITHOUT CONTRAST CLINICAL INFORMATION: Lower back pain, radiating to bilateral legs COMPARISON: None TECHNIQUE: MRI of the lumbar spine was obtained using routine sequences without contrast. FINDINGS: Normal anatomic alignment. No suspicious marrow signal or focal osseous lesion. No significant marrow edema. The vertebral body heights are maintained. Mild disc desiccation at L3-L4 and L4-L5. The conus medullaris terminates at the level of T12-L1. The distal spinal cord is normal in appearance. The cauda equina nerve roots appear normal. Small sacral Tarlov cysts at S1-S2 No significant abnormalities of the paraspinal musculature. Limited evaluation of the intra-abdominal structures without significant abnormalities. The abdominal aorta is of normal contour and caliber. SPINAL LEVELS: L1-L2: No significant spinal canal or neuroforaminal narrowing. L2-L3: No significant spinal canal or neuroforaminal narrowing. L3-L4: No significant spinal canal or neuroforaminal narrowing. Mild facet arthropathy. L4-L5: No significant spinal canal or neuroforaminal narrowing. Mild facet arthropathy. L5-S1: No significant spinal canal or neuroforaminal narrowing. Moderate facet arthropathy. MR/MR lumbar spine wo con IMPRESSION: Lower lumbar facet arthropathy, worst at L5-S1. Otherwise unremarkable MRI of the lumbar spine. No significant spinal canal stenosis, neural foraminal narrowing, or evidence of nerve impingement. Electronically signed by: Good Rodriguez MD 11/13/2023 06:34 PM EDT
== END 2023-11-09 14:31 | disposition home or self-care (01) ==
LOC: HO.MRI 14:30
PROVIDERS: PCP Internal Medicine Geriatric Medicine; Visit Provider Internal Medicine Geriatric Medicine
DX: M54.16 Radiculopathy, lumbar region (principal)
CPT/HCPCS: 72148

== ENCOUNTER 2023-11-16 07:40 | Outpatient (REF) | payer MEDICARE, MEDICAID, SELFPAY ==
--- NOTE | ~2023-11-16 | XR_ITS ---
EXAMINATION: XR HIP, RIGHT CLINICAL INFORMATION: Severe right lateral hip pain for about a month after a fall COMPARISON: CT abdomen/pelvis 06/29/2023 TECHNIQUE: AP and frog-leg lateral views of the right hip. FINDINGS: No fracture. Alignment is anatomic. Hip joint space is maintained. No focal soft tissue swelling. Right pelvic lymph node. No radiopaque foreign body. XR/XR hip RT min 2V IMPRESSION: Normal right hip. Electronically signed by: Nerissa Garvey DO 11/16/2023 10:55 AM EDT
== END 2023-11-16 07:41 | disposition home or self-care (01) ==
LOC: HO.XRAY 07:40
PROVIDERS: PCP Internal Medicine Geriatric Medicine; Visit Provider Internal Medicine Geriatric Medicine
DX: M70.61 Trochanteric bursitis, right hip (principal)
CPT/HCPCS: 73502

== ENCOUNTER 2024-01-18 11:08 | Outpatient (AMB) | payer MEDICARE, MEDICAID, SELFPAY ==
--- NOTE | 2024-01-18 11:10 | A.OFFVIS_ITS ---
Vital Signs 01/18/24 11:11 Height 5 ft 6 in Intake Visit Reasons: New prob- Trochanteric Bursitis of R hip Intake Note: Tenisha is a 63 year old female who presents today for a new problem visit with complaints of right hip pain. Patient was referred by her PCP for hip bursitis due to the pain along the lateral aspect of her hip. Pt states this is from a fall on 09/20/23. Pt states her ROM is limited and she has difficulty lifting her right foot due to the pain in her hip. Allergies sertraline [From ZOLOFT] Allergy (Severe, Verified 01/18/24 11:12) GI UPSET/LETHARGY/CONFUSION atorvastatin [ATORVASTATIN] Allergy (Intermediate, Verified 01/18/24 11:12) SEVER MUSCLE/FOOT PAIN oxycodone [OXYCODONE] Allergy (Intermediate, Verified 01/18/24 11:12) GI UPSET,CONFUSION cefaclor [From Ceclor] Allergy (Mild, Verified 01/18/24 11:12) DYSPNEA Penicillins Allergy (Mild, Verified 01/18/24 11:12) DYSPNEA vancomycin [Vancomycin] Allergy (Mild, Verified 01/18/24 11:12) ITCHING acetaminophen [Tylenol-Codeine #3] Allergy (Unknown, Verified 01/18/24 11:12) Unknown penicillin V Allergy (Unknown, Verified 01/18/24 11:12) unknown metronidazole [From Flagyl] Adverse Reaction (Unknown, Verified 01/18/24 11:12) Unknown Bactrim Allergy (Unknown, Uncoded 01/18/24 11:12) Unknown HPI HPI New prob- Trochanteric Bursitis of R hip : Details: Tenisha is a 63 year old female who presents today for a new problem visit with complaints of right hip pain. Patient was referred by her PCP for hip bursitis due to the pain along the lateral aspect of her hip. Pt states this is from a fall on 09/20/23. Pt states her ROM is limited and she has difficulty lifting her right foot due to the pain in her hip. [facility] Medical History (Updated 01/18/24 @ 13:23 by Matthias Robbins MD) Nicotine dependence, cigarettes, uncomplicated Abdominal wall mass Female bladder prolapse B12 deficiency Depression Hyperlipidemia Osteopenia Obesity Thyroid nodule Hypothyroidism (~2014) Surgical History Hx of abdominal surgery (04/30/23) History of incisional hernia repair (12/11/22) Previous section Hx of laparoscopy History of partial hysterectomy (05/2022) History of colonoscopy History of foot surgery Hx of mammogram Hx of cholecystectomy Hx of tonsillectomy History of esophagogastroduodenoscopy (EGD) Family History Father Heart disease Mother Cardiomyopathy Goiter Maternal Grandfather Stomach cancer Social History Alcohol intake: current Alcohol intake frequency: does not drink Patient Tobacco Use Status: Current everyday Tobacco user Tobacco use type: Cigarette Cigarette Packs Per Day: 0.5 Cigarettes Per Day: 10.0 Years Smoked: 40 - onset 22, 1.5-2ppd x 40yrs, 62+PYH Second Hand Smoke Exposure: No Physical Exam Extrem Other: TTP right lateral hip Office Procedures Joint Inj/Aspir; Non-Pain Clin Joint Injection/Drain Details: Injected 1 mL of Decadron and 3 mL 1% lidocaine and 3 mL of 0.25% Marcaine. Site was prepped using aseptic technique. Patient tolerated the procedure well. Shoulders, Hips, Knees, Hip Injection Large Joint : Right Hip (Greater trochanter) Coding Procedure code (CPT) selection complete Assessment & Plan Assessment & Plan (1) Greater trochanteric bursitis of right hip: Code(s): M70.61 - Trochanteric bursitis, right hip Category: Medical Plan: Greater trochanteric bursitis Injected right hip. continue HEP f/u as needed Coding Level of Care Code Est Pt Level 3 (94915) Diagnoses Greater trochanteric bursitis of right hip M70.61 CPT Codes Shoulders, Hips, Knees, - Hip Injection Large Joint : Right Hip ([id number])
== END 2024-01-18 12:10 | disposition home or self-care (01) ==
PROVIDERS: PCP Internal Medicine Geriatric Medicine; Visit Provider Orthopaedic Surgery
DX: M70.61 Trochanteric bursitis, right hip (principal)
CPT/HCPCS: 20610; 99213

== ENCOUNTER → 2024-01-18 11:08 | Outpatient (BNVA) | payer MEDICARE, MEDICAID, SELFPAY | PROVIDERS: PCP Internal Medicine Geriatric Medicine; Visit Provider Orthopaedic Surgery | DX: M70.61 Trochanteric bursitis, right hip (principal) | CPT/HCPCS: 20610; 99212; J0665; J1100; J2003 ==

== ENCOUNTER 2024-01-29 07:51 | Outpatient (REF) | payer MEDICARE, MEDICAID, SELFPAY | END 2024-01-29 07:52 | disposition home or self-care (01) | LOC: HO.CT 07:51 | PROVIDERS: PCP Internal Medicine Geriatric Medicine; Visit Provider Physician Assistant Medical | DX: Z12.2 Encounter for screening for malignant neoplasm of respiratory organs (principal); F17.210 Nicotine dependence, cigarettes, uncomplicated | CPT/HCPCS: 71271 ==

== ENCOUNTER → 2024-01-29 07:53 | Outpatient (BNV) | payer MEDICARE, MEDICAID, SELFPAY | PROVIDERS: PCP Internal Medicine Geriatric Medicine; Visit Provider Radiology Diagnostic Radiology | DX: J43.2 Centrilobular emphysema (principal); R91.1 Solitary pulmonary nodule; F17.210 Nicotine dependence, cigarettes, uncomplicated | CPT/HCPCS: 71271 ==

== ENCOUNTER 2024-02-04 07:49 | Outpatient (REF) | payer MEDICARE, MEDICAID, SELFPAY | END 2024-02-04 07:50 | disposition home or self-care (01) | LOC: HO.US 07:49 | PROVIDERS: PCP Internal Medicine Geriatric Medicine; Visit Provider Student in an Organized Health Care Education/Training Program | DX: E04.1 Nontoxic single thyroid nodule (principal) | CPT/HCPCS: 76536 ==

== ENCOUNTER → 2024-02-04 07:51 | Outpatient (BNV) | payer MEDICARE, MEDICAID, SELFPAY | PROVIDERS: PCP Internal Medicine Geriatric Medicine; Visit Provider Radiology Diagnostic Radiology | DX: E04.1 Nontoxic single thyroid nodule (principal) | CPT/HCPCS: 76536 ==

== ENCOUNTER 2024-03-13 08:54 | Outpatient (REF) | payer MEDICARE, MEDICAID, SELFPAY ==
[2024-03-13 11:41] LABS: Free T4 (Free Thyroxine) 1.16 ng/dL (0.71-1.85); Thyroid Stimulating Hormone 2.26 uIU/mL (0.32-4.0)
--- OUTSIDE RECORDS SUMMARY | 2024-03-13 12:29 | XMS_ITS | Clinical Summary ---
Demographics Address [address] [place] [address] Mobile Phone Home Phone Email Address Preferred Language en Marital Status Legally Denominational Affiliation Unknown Race White Ethnic Group Not or Lati no Author Organization [employer] Address [address] [place] [address] [address] [place] [address] Care Team Providers Care Valve Grinder Name Role Phone Name, Krzysztof PERSON Primary Care Provider [phone] Allergies Active Allergy Reactions Criticality Noted Date Comments Acetaminophen 03/22/2015 Other Reaction(s): Unknown Acetaminophen-Codeine Nausea And Vomiting 07/31 Atorvastatin High 04/22/2014 Other reaction(s): Leg weakness Worsening leg pain Other Reaction(s): SEVER MUSCLE/FOOT PAIN Cefaclor Low 04/21/2005 Other Reaction(s): DYSPNEA Codeine 03/22/2015 Metronidazole 04/23/2023 Other Reaction(s): Unknown Oxycodone High 04/23/2023 Other Reaction(s): GI UPSET,CONFUSION Oxycodone-Acetaminophen Low 04/29/2018 Other reaction(s): Gastritis, Hives/Urticaria Penicillins Low 03/22/2015 Other reaction(s): Itching Other Reaction(s): DYSPNEA, unknown Sertraline High 04/29/2018 Other reaction(s): Gastritis Other Reaction(s): GI UPSET/LETHARGY/CON FUSION Sulfamethoxazole-Trimeth oprim 04/23/2023 Other Reaction(s): Unknown mother with allergy Vancomycin Itching Low 04/21/2005 Other reaction(s): Itching Medications fluticasone (Flonase) 50 MCG/ACT nasal spray Administer 1-2 sprays into affected nostril(s) at bed time. 07/13/19 22 Active folic acid (Folvite) 1 MG tablet Take 1 tablet by mouth at bed time. 04/30/19 22 Active ketotifen (Zaditor) 0.025 % ophthalmic solution Administer 1 drop into affected eye(s) every 12 (twelve) hours. 01/08/20 18 Active loperamide (Imodium) 2 MG capsule take 2 capsule by oral route after 1st loose stool, followed by 1 capsule after each subsequent loose stool not to exceed 8mg per day 03/15/19 18 Active melatonin tablet One tab once a bedtime 04/30/19 22 Active trimethoprim-po lymyxin b (Polytrim) ophthalmic solution Administer 1 drop into affected eye(s) every 6 (six) hours. 03/02/19 22 Active albuterol (Ventolin HFA) 108 (90 Base) MCG/ACT inhalerIndicati ons:Wheeze TAKE 2 PUFFS BY MOUTH EVERY 4 TO 6 HOURS IF NEEDED 18 g 1 08/23/19 23 Active doxycycline (Vibra-Tabs) 100 MG tablet Take 100 mg by mouth 2 times daily. 01/24/20 23 Active omeprazole OTC (PriLOSEC OTC) 20 MG EC tablet Take 1 tablet (20 mg) by mouth before breakfast. Do not crush, chew, or split. 30 tablet 11 01/27/20 23 Active cyanocobalamin (Vitamin B-12) 1000 MCG/ML injectionIndica tions:Vitamin B 12 deficiency INJECT 1 ML INTRAMUSCULARLY EVERY MONTH 3 mL 11 02/10/20 23 Active PARoxetine (Paxil) 10 MG tabletIndicatio ns:Anxiety TAKE 1 TABLET BY MOUTH EVERY DAY 90 tablet 3 04/20/19 24 Active Mometasone Furoate (Asmanex HFA) 100 MCG/ACT aerosolIndicati ons:Cough, unspecified type,Wheezing INHALE 1 PUFF BY MOUTH TWICE A DAY. RINSE MOUTH WITH WATER AFTER USE TO REDUCE AFTERTASTE AND INCIDENCE OF CANDIDIASIS. DO NOT SWALLOW. 13 g 2 04/26/19 24 Active fluticasone furoate (Arnuity Ellipta) 100 MCG/ACT inhaler Inhale 1 puff in the morning. Rinse mouth with water after use to reduce aftertaste and incidence of candidiasis. Do not swallow. 1 each 5 04/30/19 24 025 Active levothyroxine (Synthroid, Levoxyl) 50 MCG tablet TAKE 1 TABLET (50 MCG) BY MOUTH BEFORE BREAKFAST 90 tablet 3 07/20/19 24 025 Active loratadine (Claritin) 10 MG tablet TAKE 1 TABLET BY MOUTH EVERY DAY 90 tablet 1 07/30/19 24 Active mometasone (Elocon) 0.1 % ointment Apply topically Once per day. 45 g 2 10/19/19 24 025 Active ibuprofen 800 MG tablet TAKE 1 TABLET BY MOUTH 3 TIMES A DAY WITH FOOD 90 tablet 3 10/24/19 24 Active docusate sodium (Colace) 100 MG capsule Take 1 capsule (100 mg) by mouth 2 times daily. 180 capsule 1 11/08/19 24 Active Multiple Vitamin (multivitamin) capsuleIndicati ons:Tiredness Take 1 capsule by mouth Once per day. 30 capsule 11 11/08/19 24 025 Active cholecalciferol (Vitamin D-3) 25 MCG (1000 UT) capsuleIndicati ons:Vitamin D deficiency Take 1 capsule (25 mcg) by mouth Once per day. 30 capsule 11 11/08/19 24 025 Active polyethylene glycol, PEG, 3350 (Miralax) 17 g packet DISSOLVE 17 GRAMS IN 8 OZ OF FLUID LIQUID DRINK DAILY DIRECTED 100 packet 2 11/23/19 24 Active PHENobarbital-h yoscyamine-atro pine-scopoloami ne () 16.2 MG tablet Take 1 tablet by mouth 3 times daily. 21 tablet 12/31/19 24 Active Hospital, Clinic, or Other Facility Administered Medication Ordered Dose Route Frequency Start Date End Date Status cyanocobalamin (Vitamin B-12) injection 1,000 mcgIndications:Cobalamin deficiency 1000 mcg IM Every 30 days 02/10/2022 Active cyanocobalamin (Vitamin B-12) injection 1,000 mcgIndications:Cobalamin deficiency 1000 mcg IM Every 30 days 08/17/2022 Active cyanocobalamin (Vitamin B-12) injection 1,000 mcgIndications:Vitamin B 12 deficiency 1000 mcg IM Every 30 days 08/22/2023 Active Active Problems Problem Noted Date Diagnosed Date Ulcerative rectosigmoiditis without complication 09/12/2023 Abnormal bowel habits 09/11/2023 Elevated serum tryptase 09/11/2023 Abdominal wall mass 05/25/2023 Acute abdomen 05/25/2023 Acute diarrhea 05/25/2023 Bile salt-induced diarrhea 05/25/2023 Closed rib fracture 05/25/2023 Fall 05/25/2023 Head injury 05/25/2023 Incisional hernia without obstruction or gangren e 05/25/2023 Oral candidiasis 05/25/2023 Personal history of nicotine dependence 05/25/19 24 Umbilical hernia 05/25/2023 Hypothyroidism 05/25/2023 Irritable bowel syndrome 05/25/2023 GERD (gastroesophageal reflux disease) Abdominal wall seroma 05/25/2023 Obesity 05/25/2023 Cutaneous candidiasis 04/16/2023 Overview (05/25/2023): Last Assessment & Plan: I recommended she treat topically with nystatin BID and use oral fluconazole every three days for 5 doses. She was reluctant to use oral and thus will try topical first. If not improving in the next couple days, will try oral. She will warm compress and rinse with cool water for comfort. No soap on the vulva. She will call if she is not improving by Sunday. Thyroid nodule 12/15/2022 History of hysterectomy 07/14/2022 Rhinitis 01/17/2022 Condyloma 12/11/2017 History of cholecystectomy 11/06/2017 Osteopenia 05/31/2017 Rectocele 04/26/2017 Overview (07/14/2022): Last Assessment & Plan: I strongly encouraged Tenisha to follow up with GI and consider Linzess. I explained that it would be worth a try as she is currently miserable with her diarrhea symptoms and it is limiting her ability to live her daily life. She agreed to consider and call her GI. Last Assessment & Plan: Same as for cystocele as noted above. Chronic diarrhea 03/15/2017 Closed fracture of foot 01/19/2017 Joint pain 07/21/2016 Neck pain 01/27/2016 Foot pain 11/25/2015 Hammer toe 11/25/2015 Dysphagia 03/22/2015 Osteoarthritis of ankle and foot 03/22/2015 Peripheral neuropathic pain 03/22/2015 Acquired hypothyroidism 10/13/2014 Esophageal reflux 09/02/2014 Anxiety 06/28/2012 Chronic pain 06/28/2012 Depression 06/28/2012 Vitamin B 12 deficiency 06/19/2012 Radiculitis, cervical 07/18/2010 Hyperlipidemia 05/23/2010 Obesity, unspecified 04/21/2005 Tobacco use disorder 04/21/2005 Overview (07/14/2022): Last Assessment & Plan: Trying to cut down Resolved Problems Problem Noted Date Diagnosed Date Resolved Date Irritable bowel syndrome with diarrhea 05/25/2023 09/12/2023 Itch of left eye 01/07/2018 10/12/2022 Vaginal pessary in situ 07/21/201603/2022 Midline cystocele 01/27/2016 07/14/2022 Overview (07/14/2022): Last Assessment & Plan: After placing #4 ring with support, she was sent to the bathroom and with minimal Valsalva, the pessary was expelled. A larger size was not feasible. Reviewed other options for pelvic organ prolapse. I explained that since she is symptomatic and has now failed pessary x 2, she is most likely to have benefit from surgical intervention. Her GH is too large to maintain a pessary in place. She was encouraged to follow up with Dr. You, but preferred to see our Urogyn providers here to discuss surgical intervention. I asked her to obtain a copy of her Urodynamic studies from Dr. You's office in preparation for this visit and bring them along. Chronic fatigue syndrome 11/25/2015 Encounters Date Type Department Care Team Description 03/13/2024 Orders Only GENERIC EXTERNAL DATA DEPARTMENT Provider, Generic External Data 02/20/2024 9:30 AM EST Clinical Support [facility] [address] [place] [phone] Chitra Madrid, SAMRA Vitamin B 12 deficiency 02/19/2024 Travel 02/14/2024 Telephone [facility] [address] [place] [address] Carolina Chopra [place] jan recalls 01/29/2024 Orders Only [facility] External Provider, [facility] 01/25/2024 1:15 PM EST Office Visit [facility] [place] [address] Chepe Moreno MD Xanthoma (Primary Dx) 01/25/2024 Travel 01/22/2024 9:30 AM EST Clinical Support [facility] [address] [place] [address] Chitra Madrid, RN Vitamin B 12 deficiency 01/22/2024 Telephone [facility] [address] [place] [address] Chitra Madrid, SAMRA 01/22/2024 Travel 01/18/2024 Travel 01/02/2024 Telephone [facility] [address] [place] [address] Krzysztof Martell MD 01/01/[address] [address] Chitra Madrid, SAMRA 12/31/[address] [address] Chitra Madrid, SAMRA 12/31/2023 Refill [facility] [address] [place] [address] Krzysztof Martell MD 12/24/[address] [address] Natalee Stoddard, SAMRA 12/21/2023 9:30 AM EST Clinical Support [facility] [address] [place] [address] Aileen Payton, SAMRA Vitamin B 12 deficiency 12/18/2023 Refill [facility] [address] [place] [phone] Name, MD Krzysztof 12/16/2023 Travel from Last 3 Months Immunizations Name Administration Dates Next Due Influenza injectable quadriv alent IIV4 with preservative 11/06/2017,11/20/2016,11/25/2015 Influenza injectable quadriv alent preservative free 11/28/2022,11/01/2021,11/19/2020,10/27,10/31/2018 Influenza, IIV3, injectable 11/26/2020, 4 Influenza, seasonal, injecta ble, preservative free 12/11/2023,12/08/2014 Moderna Covid-19 Vaccine 12+ 03/02/2021,05/20/19 21,04/21/2020 Moderna Covid-19 Vaccine 6+ Bivalent 01/18/2022 PPD Test 03/21/2001,03/19/2001 Rabies, intramuscular 01/04/2013,01/01/2013 Td (adult), 5 Lf tetanus tox oid, preservative free, adsorbed 01/01/2013 Tdap 12/11/2023,10/21/2008 Social History Tobacco Use Types Packs/Day Years Used Date Smoking Tobacco: Every Day Cigarettes Smokeless Tobacco: Current Tobacco Cessation:Ready to Q uit: Not Asked; Counseling Given: Not Answered Alcohol Use Standard Drinks/Week Comments Yes 0 (1 standard drink = 0.6 oz pur e alcohol) occassionally Depression Answer Date Recorded Patient Health Questionnaire-9 Score 0 05/29/2023 Patient Health Questionnaire-9 Score 0 05/29/2023 Last PHQ-9: Questionnaire Data Not on file 0 05/29/2023 Housing Stability Answer Date Recorded What is your housing situation today? I have andrea pruitt 05/29/[address] you li ve. Do you have problems with any of the following? None of the above 05/29/2023 Food Insecurity Answer Date Recorded Within the past 12 months, y ou worried that your food would run out before you got money to buy more: Never True 05/29/2023 Within the past 12 months,th e food you bought just didn't last and you didn't have enough money to get more: Never True Transportation Answer Date Recorded In the past 12 months, has l ack of transportation kept you from medical appts, meetings, work or from getting things needed for daily living? No 05/29/2023 Utilities Answer Date Recorded In the past 12 months, has t he electric, gas, oil or water company threatened to shut off services in your home? No 05/29/2023 Depression Answer Date Recorded Patient Health Questionnaire-2 Score 0 05/29/2023 Comments Unknown Sex and Gender Information Value Date Recorded Sex Assigned at Female 12/12/2021 10:29 AM EDT Legal Sex Female 10:29 AM EDT Gender Identity Female 12/12/2021 10:29 AM EDT Sexual Orientation Straight 12/12/2021 10 :29 AM EDT Last Filed Vital Signs Vital Sign Reading Time Taken Comments Blood Pressure 144/65 01/25/2024 1:18 PM EST Pulse 100 01/25/2024 1:18 PM EST Temperature 36.2 ??C (97.1 ??F) 01/25/2024 1:18 PM ES T Respiratory Rate 19 01/25/2024 1:18 PM EST Oxygen Saturation 97% 01/25/2024 1:18 PM EST Inhaled Oxygen Concentration - - Weight 96.3 kg (212 lb 6.4 oz) 01/22/2024 9:45 A M EST Height 167.6 cm (5' 6 ) 12/11/2023 9:04 AM EDT Body Mass Index 34.28 12/11/2023 9:04 AM EDT Plan of Treatment Upcoming Encounters Date Type Department Care Team (Late st Contact Info) Description 03/21/2024 9:30 AM EST Clinical Support [facility] [address] [place] [phone] 04/25/2024 10:00 AM EDT Office Visit [facility] [address] [place] [phone] Name, MD Krzysztof [address] [place] [phone] Health Maintenance Due Date Last Done Comments CT Colonography 1962 FIT DNA/Cologuard 1960 FIT 1960 FOBT 1960 HIV Screening 1960 Sigmoidoscopy 1960 Hepatitis C Screening 1980 Pneumococcal Vaccine: 50+ Years (1 of 2 - PCV) 1981 Zoster Vaccines (1 of 2) 2012 COVID-19 Vaccine ( season) 2023 01/18/2022, 03/02/2021, 05/19/2020, Additional history exists Depression Screening 05/28/2024 05/29/2023, 05/29/19 24 SDOH Screening 05/28/2024 05/29/2023 Alcohol/Substance Use Screening 09/11/2024 09/12/2023 Tobacco Screening 01/24/2025 01/25/2024 Mammogram 02/08/2025 02/09/2024, 01/03/2022 Colonoscopy 08/24/2026 08/24/2016 Colorectal Cancer Screening 08/24/2026 Cervical Cancer Screening 05/10/2027 HPV/Cotest 05/10/2027 Pap Smear 05/10/2027 05/09/2022 Lipid Panel 06/30/2027 06/29/2022, 04/12, 10/27/2020, Additional history exists DTaP/Tdap/Td Vaccines (4 - Td or Tdap) 12/10/2033 12/11/2023, 01/01/2013, 10/21/2008 RSV Patients and Patients Aged 60 years or older (1 - 1-dose 75+ series) 2037 Influenza Vaccine Completed 12/11/2023, , 11/01/2021, Additional history exists HIB Vaccines Aged Out No longer eligi ble based on patient's age to complete this topic HPV Vaccines Aged Out No longer eligi ble based on patient's age to complete this topic Hepatitis A Vaccines Aged Out No long er eligible based on patient's age to complete this topic Hepatitis B Vaccines Aged Out No long er eligible based on patient's age to complete this topic IPV Vaccines Aged Out No longer eligi ble based on patient's age to complete this topic Meningococcal Vaccine Aged Out No nathan linda eligible based on patient's age to complete this topic RSV under 20 months Aged Out No longe r eligible based on patient's age to complete this topic Rotavirus Vaccines Aged Out No longer eligible based on patient's age to complete this topic Procedures Procedure Name Priority Date/Time Associated Diagnosis Comments TSH Routine 03/13/2024 9:37 AM EST T4, FREE Routine 03/13/2024 9:37 AM EST US THYROID Routine 02/04/2024 8:00 AM EST LDCT LUNG SCREENING Routine 01/29/2024 8 :09 AM EST LIPID PANEL, STANDARD Routine 06/29/2022 7:58 AM EDT Hyperlipidemia, unspecified hyperlipidemia type NSAID long-term use Cobalamin deficiency Acquired hypothyroidism PAP/HPV Routine 05/09/2022 12:00 AM EDT MAMMOGRAPHY Routine 01/03/2022 2:56 PM EST COLONOSCOPY Routine 08/24/2016 from Last 3 Months or Most Recently Relevant to Health Maintenance Results * TSH (03/13/2024 9:37 AM EST) Thyroid Stimulating Hormone 2.26 0.32 - 4.0 uIU/mL [facility] Comment:TSH 3rd Generation ( [facility]) 03/13/2024 9:37 AM EST 03/13/2024 9:37 AM EST us Generic External Data Provider LAB BLOOD ORDERAB LES Final Result Performing Organization Address City/[facility]/ZIP Co de Phone Number [facility] [address] [place] [phone] * T4, Free (03/13/2024 9:37 AM EST) Free T4 (Free Thyroxine) 1.16 0.71 - 1.85 ng/dL [facility] 03/13/2024 9:37 AM EST 03/13/2024 9:37 AM EST Generic External Data Provider LAB BLOOD ORDERAB LES Final Result Performing Organization Address City/[facility]/ZIP Co de Phone Number [facility] [address] [place] [phone] * US Thyroid (02/04/2024 8:00 AM EST) Anatomical Region Laterality Modality Head, Neck Ultrasound 02/04/2024 8:00 AM EST Narrative 03/13/2024 11:38 AM EST ? [facility] ?[address] ?[place] [address] ? Ultrasound Report ? Signed ? Patient: Robert,Tenisha V ?MR#: [id number] ?? 14 ? : 1960 ?Acct:[id number] ? Age/Sex: 63 / F ?ADM Date: 02/04/24 ? Loc: HO.US ? Attending Dr: Carla Prieto MD ? Ordering Physician: Carla Prieto MD ?? Date of Service: 02/04/24 ?? Procedure(s): US thyroid ?? Accession Number(s): [id number] ? cc: Carla Prieto MD; Krzysztof Martell MD ? EXAMINATION: ??US THYROID ? HISTORY: E04.1 - Nontoxic single thyroid nodule ? TECHNIQUE: Real-time grayscale ultrasound imaging was performed and ?? images were reviewed. ? COMPARISON: Comparison is made with the prior examination dated ?? 01/17/2023. ? FINDINGS: ?? SIZE: The right thyroid lobe measures 3.8 x 1.3 x 1.4 cm. ??The left ?? thyroid lobe measures 3.4 x 0.9 x 1.3 cm. ?? The isthmus measures 4 mm. ? FLOW: ??Flow to the gland is normal. ? ECHOGENICITY: ??The echotexture of the gland is heterogeneous. ? NODULES: ?? Again seen is a nodule at the lower pole of the right thyroid lobe with ?? imaging characteristics of follows: ? Nodule #: 1 ? Location: Right lower pole measuring 7 x 7 x 7 mm (previously 6 x 6 x 6 ?? mm). ?? Shape: ??Round ?? Margins: ??Smooth ?? Echotexture: ??Isoechoic ?? Morphology: ??Solid ?? Calcifications: ??None ?? TIRADS: TR3: Mildly suspicious. ? US/US thyroid ?? IMPRESSION: ?? Stable 7 mm nodule at the lower pole of the right thyroid lobe. ? ACR TI-RADS Guidelines ? TR1: Benign, ??No follow-up or biopsy required ?? TR2: Not Suspicious, ??No biopsy indicated ?? TR3: Mildly Suspicious, ??FNA if >= 2.5 cm, Follow if >= 1.5 cm ?? TR4: Moderately Suspicious, FNA if >= 1.5 cm, Follow if >= 1.0 cm ?? TR5: Highly Suspicious, ??FNA if >= 1.0 cm, Follow if >= 0.5 cm ? Electronically signed by: ??Stuart Cisneros MD ??03/13/2024 11:35 AM EST ?? RP ? Dictated By: ?Stuart Cisneros MD ? Signed By: ?<Electronically signed by Stuart Cisneros MD in OV> ?03/13/241134 ? DD/ 0800 ? TD/TT: 02/04/24 0806 ? Delivery Room Supervisor: ? Procedure Note Jerzy, Image - 03/13/2024 [place] [address] Ultrasound Report Signed Patient: Tenisha Jones VMR#: [id number] 14 : 1960Acct:[id number] Age/Sex: 63 / FADM Date: 02/04/24 Loc: HO.US Attending Dr: Carla Prieto MD Ordering Physician: Carla Prieto MD Date of Service: 02/04/24 Procedure(s): US thyroid Accession Number(s): [id number] cc: Carla Prieto MD; Name,Krzysztof PERSON EXAMINATION: US THYROID HISTORY: E04.1 - Nontoxic single thyroid nodule TECHNIQUE: Real-time grayscale ultrasound imaging was performed and images were reviewed. COMPARISON: Comparison is made with the prior examination dated 01/17/2023. FINDINGS: SIZE: The right thyroid lobe measures 3.8 x 1.3 x 1.4 cm. The left thyroid lobe measures 3.4 x 0.9 x 1.3 cm. The isthmus measures 4 mm. FLOW: Flow to the gland is normal. ECHOGENICITY: The echotexture of the gland is heterogeneous. NODULES: Again seen is a nodule at the lower pole of the right thyroid lobe with imaging characteristics of follows: Nodule #: 1 Location: Right lower pole measuring 7 x 7 x 7 mm (previously 6 x 6 x 6 mm). Shape: Round Margins: Smooth Echotexture: Isoechoic Morphology: Solid Calcifications: None TIRADS: TR3: Mildly suspicious. US/US thyroid IMPRESSION: Stable 7 mm nodule at the lower pole of the right thyroid lobe. ACR TI-RADS Guidelines TR1: Benign, No follow-up or biopsy required TR2: Not Suspicious, No biopsy indicated TR3: Mildly Suspicious, FNA if >= 2.5 cm, Follow if >= 1.5 cm TR4: Moderately Suspicious, FNA if >= 1.5 cm, Follow if >= 1.0 cm TR5: Highly Suspicious, FNA if >= 1.0 cm, Follow if >= 0.5 cm Electronically signed by: Stuart Cisneros MD 03/13/2024 11:35 AM EST Dictated By: Stuart Cisneros MD Signed By: <Electronically signed by Stuart Cisneros MD in OV> 03/13/24 1135 DD/ 0800 TD/TT: 02/04/24 0806 Delivery Room Supervisor: [facility] External Provider IMG US PROCEDURES Final Result * CT Lung Screening Low dose (01/29/2024 8:09 AM EST) Anatomical Region Laterality Modality Lung Computed Tomogra phy 01/29/2024 8:09 AM EST Narrative 03/12/2024 8:51 AM EST ? [facility] ?[address] ?[place] [address] ? CT Scan Report ? Signed ? Patient: Robert,Tenisha V ?MR#: [id number] ?? 14 ? : 1960 ?Acct:[id number] ? Age/Sex: 63 / F ?ADM Date: 12/17/24 ? Loc: HO.CT ? Attending Dr: Richa Wing PA-C ? Ordering Physician: Richa Wing PA-C ?? Date of Service: 01/29/24 ?? Procedure(s): CT lung screening ?? Accession Number(s): [id number] ? cc: Richa Wing PA-C; Name,Krzysztof PERSON ? Report Number: ?? [id number]: Total DLP = ?? 73.00 mGy-cm ?? EXAMINATION: ?? CT LOW-DOSE SCREENING CHEST WITHOUT CONTRAST ? CLINICAL INFORMATION: ?? Nicotine dependence, cigarettes, uncomplicated. The patient is a ?? current smoker with a 41 pack-year history of smoking. ? COMPARISON: ?? CT chest low-dose screening 01/23/2023, 12/31/2020. ?? X-ray chest 11/08/2015 and 04/03/2015. ? TECHNIQUE: ?? Multidetector volumetric CT imaging of the chest is performed on a ?? Siemens SOMATOM Definition scanner without contrast using low dose ?? technique. Additional 2D coronal and sagittal reformatted images and ?? axial 3D maximum intensity projection (MIP) images are generated on the ?? CT workstation. ? This CT examination was performed using dose optimization techniques as ?? appropriate, variously including the following: ?? *Automated exposure control ?? *Adjustment of mA and/or kV according to patient size (this includes ?? techniques or standardized protocols for targeted exams where dose is ?? matched to indication/reason for exam; i.e. extremities or head) ?? *Use of iterative reconstruction technique ? TOTAL EXAM DLP: ?? 73 mGy-cm. ? CTDIvol: ?? 1.91 mGy. ? Exam submitted for review 03/12/2024 7:48 AM INSPECTING MACHINE ADJUSTER. ? FINDINGS: ? PULMONARY NODULES: ?? -A few tiny calcified granulomata are stable and unchanged, benign. ?? -3 mm nodule in the anterior segment left upper lobe (series 5, image ?? 203), stable and benign. ?? -5 mm stable nodule in the left lower lobe (series 5, image 320), ?? benign. ?? -No new or enlarging pulmonary nodules. ? LUNGS: ?? -Mild centrilobular emphysema with upper lobe predominance. There are ?? paraseptal changes as well. ?? -Mild biapical pleural parenchymal scarring. ?? -Lungs otherwise clear without abnormal groundglass opacity or ?? consolidation. ?? -Small airways appear normal. ?? -Central airways are patent and normal. ?? -No pleural effusion or pneumothorax. ? MEDIASTINUM: ?? -Normal thyroid. ?? -Mildly ectatic ascending aorta at 3.9 cm. Aorta mildly calcified ?? without aneurysm. ?? -Main pulmonary artery is normal. ?? -There is no lymphadenopathy or mass in the mediastinum. ?? -Normal esophagus and GE junction. ?? -Heart size normal. No pericardial effusion. ? CORONARY ARTERY CALCIFICATION: Mild three-vessel calcification. ? CHEST WALL/AXILLA: Unremarkable. ? UPPER ABDOMEN: ?? -Gallbladder is likely surgically absent or completely contracted. ?? -Remainder of the imaged upper abdominal contents appear normal. ? OSSEOUS STRUCTURES: ?? -No suspicious lytic or blastic bone lesions. Mild degenerative ?? arthritis bilateral shoulder joints. ? CT/CT lung screening ?? IMPRESSION: ? 1. A few stable tiny scattered calcified granulomata and tiny ?? noncalcified nodules, without change, benign. No new or enlarging ?? pulmonary nodule. ?? 2. Mild centrilobular and paraseptal emphysematous changes with upper ?? lobe predominance. No active lung disease. ?? 3. Ancillary findings as discussed in the body of the report. ? ASSESSMENT: ?? 1. Lung-RADS Category 2: Benign appearance or behavior of nodules. ? 2. Lung-RADS Category S: None. ? RECOMMENDATION: ?? Continued routine annual low-dose CT lung screening in 1 year is ?? recommended. An order for CT CHEST LOW DOSE CANCER SCREENING ([id number]) ?? can be placed. ? Electronically signed by: ??Joaquim Loyola MD ??03/12/2024 08:48 AM EST RP ? Dictated By: ?Joaquim Loyola MD ? Signed By: ?<Electronically signed by Joaquim Loyola MD in OV> ?03/12/24 0848 ? DD/DT: 01/28/ 0809 ? TD/TT: 01/28/ 0843 ? Delivery Room Supervisor: ? Procedure Note Donotuseinterpreter, Image - 03/12/[address] [address] [address] Scan Report Signed Patient: Tenisha Jones VMR#: [id number] 14 : 1960Acct:[id number] Age/Sex: 63 / FADM Date: 01/29/24 Loc: HO.CT Attending Dr: Richa Wing PA-C Ordering Physician: Richa Wnig PA-C Date of Service: 01/29/24 Procedure(s): CT lung screening Accession Number(s): [id number] cc: Richa Wing PA-C; Name,Krzysztof PERSON Report Number: [id number]: Total DLP = 73.00 mGy-cm EXAMINATION: CT LOW-DOSE SCREENING CHEST WITHOUT CONTRAST CLINICAL INFORMATION: Nicotine dependence, cigarettes, uncomplicated. The patient is a current smoker with a 41 pack-year history of smoking. COMPARISON: CT chest low-dose screening 01/23/2023, 12/31/2020. X-ray chest 11/08/2015 and 04/03/2015. TECHNIQUE: Multidetector volumetric CT imaging of the chest is performed on a Siemens SOMATOM Definition scanner without contrast using low dose technique. Additional 2D coronal and sagittal reformatted images and axial 3D maximum intensity projection (MIP) images are generated on the CT workstation. This CT examination was performed using dose optimization techniques as appropriate, variously including the following: *Automated exposure control *Adjustment of mA and/or kV according to patient size (this includes techniques or standardized protocols for targeted exams where dose is matched to indication/reason for exam; i.e. extremities or head) *Use of iterative reconstruction technique TOTAL EXAM DLP: 73 mGy-cm. CTDIvol: 1.91 mGy. Exam submitted for review 03/12/2024 7:48 AM INSPECTING MACHINE ADJUSTER. FINDINGS: PULMONARY NODULES: -A few tiny calcified granulomata are stable and unchanged, benign. -3 mm nodule in the anterior segment left upper lobe (series 5, image 203), stable and benign. -5 mm stable nodule in the left lower lobe (series 5, image 320), benign. -No new or enlarging pulmonary nodules. LUNGS: -Mild centrilobular emphysema with upper lobe predominance. There are paraseptal changes as well. -Mild biapical pleural parenchymal scarring. -Lungs otherwise clear without abnormal groundglass opacity or consolidation. -Small airways appear normal. -Central airways are patent and normal. -No pleural effusion or pneumothorax. MEDIASTINUM: -Normal thyroid. -Mildly ectatic ascending aorta at 3.9 cm. Aorta mildly calcified without aneurysm. -Main pulmonary artery is normal. -There is no lymphadenopathy or mass in the mediastinum. -Normal esophagus and GE junction. -Heart size normal. No pericardial effusion. CORONARY ARTERY CALCIFICATION: Mild three-vessel calcification. CHEST WALL/AXILLA: Unremarkable. UPPER ABDOMEN: -Gallbladder is likely surgically absent or completely contracted. -Remainder of the imaged upper abdominal contents appear normal. OSSEOUS STRUCTURES: -No suspicious lytic or blastic bone lesions. Mild degenerative arthritis bilateral shoulder joints. CT/CT lung screening IMPRESSION: 1. A few stable tiny scattered calcified granulomata and tiny noncalcified nodules, without change, benign. No new or enlarging pulmonary nodule. 2. Mild centrilobular and paraseptal emphysematous changes with upper lobe predominance. No active lung disease. 3. Ancillary findings as discussed in the body of the report. ASSESSMENT: 1. Lung-RADS Category 2: Benign appearance or behavior of nodules. 2. Lung-RADS Category S: None. RECOMMENDATION: Continued routine annual low-dose CT lung screening in 1 year is recommended. An order for CT CHEST LOW DOSE CANCER SCREENING ([id number]) can be placed. Electronically signed by: Joaquim Loyola MD 03/12/2024 08:48 AM EST Dictated By: Joaquim Loyola MD Signed By: <Electronically signed by Joaquim Loyola MD in OV> 03/12/24 0848 DD/ 0809 TD/TT: 01/29/24 0843 Delivery Room Supervisor: [facility] External Provider IMG CT PROCEDURES Edited Result - Final * (ABNORMAL) Lipid Panel, Standard (06/29/2022 7:58 AM EDT) Cholesterol, Total 267(H) <200 mg/dL [facility] HDL Cholesterol 52 > OR = 50 mg/dL [facility] Triglycerides 151(H) <150 mg/dL [facility] LDL Cholesterol 185(H) mg/dL (calc) [facility] Comment: Reference range: <100 Desirable range <100 mg/dL for primary prevention; ?? <70 mg/dL for patients with CHD or diabetic patients with > or = 2 CHD risk factors. LDL-C is now calculated using the Leora calculation, which is a validated novel method providing better accuracy than the Friedewald equation in the estimation of LDL-C. Ankur SS et al. JOSE ALEJANDRO. 2013;310(19): 9990-5697 (http://education.[employer]/faq/EOB242) Chol/HDLC Ratio 5.1(H) <5.0 (calc) [facility] Non-HDL Cholesterol 215(H) <130 mg/dL (calc) [facility] Comment: For patients with diabetes plus 1 major ASCVD risk factor, treating to a non-HDL-C goal of <100 mg/dL (LDL-C of <70 mg/dL) is considered a therapeutic option. Blood Venous blood specimen / Unknown 06/29/2022 7:58 AM EDT 06/29/2022 7:58 AM EDT Narrative [facility] - 06/29/2022 10:32 PM EDT FASTING:YES FASTING: YES Krzysztof Martell MD LAB BLOOD ORDERABLES Final Resul t [facility] [address], [place] [address] [facility] [address] [place] [address] * Pap Smear (05/09/2022 12:00 AM EDT) Historical Provider HEALTH MAINTENANCE Final Result * Hm Colonoscopy (08/24/2016) Colonoscopy performed Historical Provider HEALTH MAINTENANCE Final Result from Last 3 Months or Most Recently Relevant to Health Maintenance Insurance [place] [address] [place] [phone] [facility] * Guarantor: Tenisha Jones V Account Type Relation to Patient Date of Phone Billing Address Personal/Family Self [address] [place] Care Teams Valve Grinder Relationship Specialty Start Date End Date Name, MD Krzysztof [address] [place] [id number] PCP - General Family Medicine 02/12/18
--- OUTSIDE RECORDS SUMMARY | 2024-03-13 12:29 | XMS_ITS | Encounter Summary ---
Author Organization [email or web address] Address [address] [facility] 7[address] [place] [address] Care Team Providers Care Scalehouse Attendant Name Role Phone Name, Krzysztof PERSON Primary Care Provider [phone] Reason for Visit * Reason Onset Date Comments Durable Medical Equipment 02/21/2023 Encounter Details Date Type Department Care Team ([facility] st Contact Info) Description 02/21/2023 Telephone [facility] [address] [place], [place] [phone] Name, MD Krzysztof [address] [place] [address] Durable Medical Equipment Social History Tobacco Use Types Packs/Day Years Used Date Smoking Tobacco: Every Day Cigarettes Smokeless Tobacco: Current Alcohol Use Standard Drinks/Week Comments Yes 0 (1 standard drink = 0.6 oz pur e alcohol) occassionally Housing Stability Answer Date Recorded What is your housing situation today? I have andrea pruitt 11/28/[address] you li ve. Do you have problems with any of the following? None of the above 11/28/2022 Food Insecurity Answer Date Recorded Within the past 12 months, y ou worried that your food would run out before you got money to buy more: Never True 11/28/2022 Within the past 12 months,th e food you bought just didn't last and you didn't have enough money to get more: Never True Transportation Answer Date Recorded In the past 12 months, has l ack of transportation kept you from medical appts, meetings, work or from getting things needed for daily living? No 11/28/2022 Utilities Answer Date Recorded In the past 12 months, has t he electric, gas, oil or water company threatened to shut off services in your home? No 11/28/2022 Depression Answer Date Recorded Patient Health Questionnaire-2 Score 0 01/18/2022 Comments Unknown Sex and Gender Information Value Date Recorded Sex Assigned at Female 12/12/2021 10:29 AM EDT Legal Sex Female 10:29 AM EDT Gender Identity Female 12/12/2021 10:29 AM EDT Sexual Orientation Straight 12/12/2021 10 :29 AM EDT documented as of this encounter Miscellaneous Notes * Telephone Encounter - Michela Mcgovern - 02/21/2023 11:42 AM EST Tc from [place] with [facility] requesting a shower chair for pt due to multiple falls, she is also requesting script to be send to a [employer] that does deliver DME. documented in this encounter Plan of Treatment Upcoming Encounters Date Type Department Care Team (Late st Contact Info) Description 03/21/2024 9:30 AM EST Clinical Support [facility] [address] [place] [phone] 04/25/2024 10:00 AM EDT Office Visit [facility] [address] [place] [phone] NameKrzysztof MD [address] [place] [phone] documented as of this encounter Visit Diagnoses Not on filedocumented in this encounter Care Teams Scalehouse Attendant Relationship Specialty Start Date End Date NameKrzysztof MD [address] [place] [phone] PCP - General Family Medicine 02/12/18 documented as of this encounter
--- OUTSIDE RECORDS SUMMARY | 2024-03-13 12:29 | XMS_ITS | Encounter Summary ---
Demographics Address [address] [place] [address] Mobile Phone Home Phone Email Address Preferred Language en Marital Status Legally Protestant Affiliation Unknown Race White Ethnic Group Not or Lati no Author Organization [employer] Address [address] [facility] [address] [facility] [address] 7[address] [place] [address] Care Team Providers Care Content Producer Name Role Phone Name, Krzysztof PERSON Primary Care Provider [phone] Encounter Details Date Type Department Care Team (Latest Contact Info) Description 02/19/2024 Travel Social History Tobacco Use Types Packs/Day Years [...] AM EDT documented as of this encounter Plan of Treatment Upcoming Encounters Date Type Department Care Team (Late st Contact Info) Description 03/21/2024 9:30 AM EST Clinical Support [address] [address] 04/25/2024 10:00 AM EDT Office Visit [address] [address] Name, MD Krzysztof [address] [place] [address] documented as of this encounter Visit Diagnoses Not on filedocumented in this encounter Additional Health Concerns Assessment Noted Time PHQ-9 Depression Total Score: 0 05/29/19 24 9:06 AM EDT documented as of this encounter Care Teams Content Producer Relationship Specialty Start Date End Date Name, MD Krzysztof [address] [place] [phone] PCP - General Family Medicine 02/12/18 documented as of this encounter
--- OUTSIDE RECORDS SUMMARY | 2024-03-13 12:29 | XMS_ITS | Encounter Summary ---
Author Organization [employer] Address [address] [facility] 7t [place] [address] Care Team Providers Care Plumber Apprentice Name Role Phone Name, Krzysztof PERSON Primary Care Provider [phone] Reason for Visit * Reason Onset Date Comments Nurse Triage 09/17/2023 Encounter Details Date Type Department Care Team ([facility] st Contact Info) Description 09/17/2023 Telephone [facility] [address] [place], [place] [phone] Name, MD Krzysztof [address] [place] [address] Nurse Triage Social History Tobacco Use Types Packs/Day Years [...] encounter Miscellaneous Notes * Telephone Encounter - Maddy Francois RN - 09/17/2023 8:55 AM EDT Please see below as FYI . Please advise team should any further recommendations for plan of care. * Telephone Encounter - Maddy Francois RN - 09/17/2023 8:47 AM EDT Call returned to Tenisha Jones to triage below. Reports having seen Dr. Hood during Derm clinic. Per pt banged knee right where had cryotherapy ,blister popped and wart fell off on Sunday evening. Per pt cleaned area off with warm water and applied a band-aid to cover. Per pt skin is red. Yesterday had discharge that was clear. Per pt very itchy and tender. Per pt area does not appear larger. No fever. Reviewed clear triage for warts Pedi Protocol. Under home recs for warts already treated with freezing it states Freezing Warts Off - Don't Open Blister After freezing, a blister almost always develops on top of the wart. Sometimes, it's a blood blister. A blister means the freezing was effective and destroyed the wart tissue. Do not open the blister. It will dry up in a few days and peel off in 2 weeks. No treatment is necessary. If the blister does open and drain, apply antibiotic ointment (OTC) 3 times a day for 2 days. For pain, give acetaminophen or ibuprofen as needed (See Dosage chart). Pt agrees to apply bacitracin today and return call tomorrow if does not look any better or purulent discharge develops. Reviewed home care advise, ER precautions and reasons to call back. Multiple (2) protocols were used on this call. Disposition for Call: Home Care Protocol Used: Ryan (Pediatric) Protocol-Based Disposition: Home Care Positive Triage Question: * Wart frozen with liquid nitrogen, questions about * All higher-acuity triage questions were negative Care Advice Discussed: * Freezing Warts Off - Don't Open Blister * Reasons To Call Back - Spreading redness occurs - Fever occurs - Your child becomes worse Protocol Used: No Protocol Available (Adult) Protocol-Based Disposition: Home Care Positive Triage Question: * Patient's symptoms are safe to treat at home per nursing judgment * All higher-acuity triage questions were negative Care Advice Discussed: * Reasons To Call Back - New symptoms develop - You become worse * Telephone Encounter - Lowell Coles - 09/17/2023 8:35 AM EDT Symptom: Wound Infection - Caller Reports Outcome: Talk to a nurse or provider within 15 minutes Reason: Severe pain now ( blisters ) The caller accepted this outcome Please contact at [phone] documented in this encounter Plan of Treatment Upcoming Encounters Date Type Department Care Team (Late st Contact Info) Description 03/21/2024 9:30 AM EST Clinical Support [address] [address] 04/25/2024 10:00 AM EDT Office Visit [address] [address] Name, MD Krzysztof [address] [place] [address] documented as of this encounter Visit Diagnoses Not on filedocumented in this encounter Additional Health Concerns Assessment Noted Time PHQ-9 Depression Total Score: 0 05/29/19 24 9:06 AM EDT documented as of this encounter Care Teams Plumber Apprentice Relationship Specialty Start Date End Date Name, MD Krzysztof [address] [place] [address] PCP - General Family Medicine 02/12/18 documented as of this encounter
--- OUTSIDE RECORDS SUMMARY | 2024-03-13 12:29 | XMS_ITS | Encounter Summary ---
Author Organization [facility] [employer] Address [address] [facility] 7t [place] [address] Care Team Providers Care Machine Hoop Maker Helper Name Role Phone Name, Krzysztof PERSON Primary Care Provider [phone] Encounter Details Date Type Department Care Team (Late Contact Info) Description 08/31/2022 Orders Only [facility] [address] [place] [address] [phone] Name, MD Krzysztof [address] [place] [address] [phone] Subclinical hypothyroidism Social History Tobacco Use Types Packs/Day Years Used Date Smoking Tobacco: Every Day Cigarettes Smokeless Tobacco: Current Alcohol Use Standard Drinks/Week Comments Yes 0 (1 standard drink = 0.6 oz pur e alcohol) occassionally Depression Answer Date Recorded Patient Health Questionnaire-2 Score 0 01/18/2022 Comments Unknown Sex and Gender Information Value Date Recorded Sex Assigned at Female 12/12/2021 10:29 AM EDT Legal Sex Female 10:29 AM EDT Gender Identity Female 12/12/2021 10:29 AM EDT Sexual Orientation Straight 12/12/2021 10 :29 AM EDT COVID-19 Exposure Response Date Recorded In the last 10 days, have yo u been in contact with someone who was confirmed or suspected to have Coronavirus/COVID-19? No / Unsure 08/16/2022 9:40 AM EDT documented as of this encounter Plan of Treatment Upcoming Encounters Date Type Department Care Team (Late Contact Info) Description 03/21/2024 9:30 AM EST Clinical Support [facility] [address] [place] [address] [phone] 04/25/2024 10:00 AM EDT Office Visit [facility] [address] [place] [address] Name, MD Krzysztof [address] [place] [address] documented as of this encounter Procedures Procedure Name Priority Date/Time Associated Diagnosis Comments TSH W/REFLEX TO FT4 Routine 08/31/2022 8:48 AM EDT Subclinical hypothyroidism documented in this encounter Results * (ABNORMAL) TSH W/Reflex to FT4 (08/31/2022 8:48 AM EDT) TSH reflex Free T4 4.39(H) 0.32 - 4.0 uIU/mL [facility] Blood 08/31/2022 8:48 AM EDT 08/31/2022 11:21 AM EDT Krzysztof Martell MD LAB BLOOD ORDERABLES Final Resul t [facility] [address] [place] [phone] documented in this encounter Visit Diagnoses Diagnosis Subclinical hypothyroidism Other specified acquired hypothyroidism documented in this encounter Care Teams Machine Hoop Maker Helper Relationship Specialty Start Date End Date Name, MD Kr[place] [address] PCP - General Family Medicine 02/12/18 documented as of this encounter
--- OUTSIDE RECORDS SUMMARY | 2024-03-13 12:29 | XMS_ITS | Encounter Summary ---
Author Organization [facility] [employer] Address [address] [facility] [address] [place] [address] Care Team Providers Care Clinical Services Director Name Role Phone Name, Krzysztof PERSON Primary Care Provider [phone] Encounter Details Date Type Department Care Team (Late Contact Info) Description 07/14/2022 Abstract [facility] [address] [place] [address] [phone] Name, MD Krzysztof [address] [place] [phone] Social History Tobacco Use Types Packs/Day Years [...] suspected to have Coronavirus/COVID-19? No / Unsure 07/14/2022 8:53 AM EDT documented as of this encounter Plan of Treatment Upcoming Encounters Date Type Department Care Team (Late Contact Info) Description 03/21/2024 9:30 AM EST Clinical Support [facility] [address] [place] [phone] 04/25/2024 10:00 AM EDT Office Visit [facility] [address] [place] [address] Name, MD Krzysztof [address] [place] [address] documented as of this encounter Procedures Procedure Name Priority Date/Time Associated Diagnosis Comments PAP/HPV Routine 05/09/2022 12:00 AM EDT MAMMOGRAPHY Routine 01/03/2022 2:56 PM EST documented in this encounter Results * Pap Smear (05/09/2022 12:00 AM EDT) us Historical Provider HEALTH MAINTENANCE Final Result * Mammography (01/03/2022 2:56 PM EST) Mammogram Birads-1 Anatomical Region Laterality Modality Other Narrative 01/03/2022 2:56 PM EST Recommended routine annual mammo ( [facility]) us Historical Provider MD CHOCO GAINES Edited Result - Final documented in this encounter Visit Diagnoses Not on filedocumented in this encounter Care Teams Clinical Services Director Relationship Specialty Start Date End Date Name, MD Krzysztof [address] [facility] [place] [address] PCP - General Family Medicine 02/12/18 documented as of this encounter
--- OUTSIDE RECORDS SUMMARY | 2024-03-13 12:29 | XMS_ITS | Encounter Summary ---
Author Organization [employer] Address [address] [facility] 7[address] [place] [address] Care Team Providers Care Counter Cutter Name Role Phone Name, Krzysztof PERSON Primary Care Provider [phone] Encounter Details Date Type Department Care Team (Late st Contact Info) Description 09/20/2023 Orders Only [facility] [address] [place] [address] Angelica Kyle RN Vitamin B 12 deficiency Social History Tobacco Use Types Packs/Day Years [...] your housing situation today? I have andrea sonal 05/29/[address] you li [...] Description 03/21/2024 9:30 AM EST Clinical Support [facility] [address] [place] [id number] 04/25/2024 10:00 AM EDT Office Visit [facility] [address] [place] [id number] Name, MD Krzysztof [address] [place] [phone] documented as of this encounter Procedures Procedure Name Priority Date/Time Associated Diagnosis Comments XR TIBIA FIBULA 2 VIEWS LEFT Routine 09/28/2023 2:49 PM EDT XR KNEE 4+ VIEWS RIGHT Routine 09/28/2023 1:34 PM EDT documented in this encounter Results * XR Tibia Fibula 2 Views Left (09/28/2023 2:49 PM EDT) Anatomical Region Laterality Modality Lower Extremities, Lower Leg Left Rad iographic Imaging 09/28/2023 2:49 PM EDT Narrative 09/28/2023 3:06 PM EDT ? [facility] ?[address] ?[place] [address] ?XRay Report ? Signed ? Patient: Robert,Tenisha V ?MR#: [id number] ?? 14 ? : 1960 ?Acct:[id number] ? Age/Sex: 62 / F ?ADM Date: 08/16/24 ? Loc: HO.ED ? Attending Dr: ? Ordering Physician: Tamica Bullard ?? Date of Service: 09/28/23 ?? Procedure(s): XR tibia fibula LT 2V ?? Accession Number(s): [id number] ? cc: Tamica Bullard; Name,Krzysztof PERSON ? EXAMINATION: ?? XR TIBIA AND FIBULA, LEFT ? CLINICAL INFORMATION: ?? Pain status post fall. ? COMPARISON: ?? Left foot radiographs dated 11/27/2017. ? TECHNIQUE: ?? AP and lateral views of the left tibia and fibula were obtained. ? FINDINGS: ?? The left tibia and left fibula are intact. There is no dislocation. The ?? ankle mortise appears maintained. The knee joint appears maintained. ?? There are screws within the proximal aspect of the first metatarsal ?? bone. Regional soft tissue appears normal. ? XR/XR tibia fibula LT 2V ?? IMPRESSION: ?? No fracture or dislocation. ? Dictated By: ?Charly Jackson Jr DO ? Signed By: ?<Electronically signed by Charly Jackson Jr, DO in OV> ?09/28/23 1502 ? DD/ 1449 ? TD/TT: ? Ski Instructor: CB ? Procedure Note Jerzy, Image - 09/28/2023 [place] [address] XRay Report Signed Patient: Tenisha Jones VMR#: [id number] 14 : 1960Acct:[id number] Age/Sex: 62 / FADM Date: 09/28/23 Loc: HO.ED Attending Dr: Ordering Physician: Tamica Bullard Date of Service: 09/28/23 Procedure(s): XR tibia fibula LT 2V Accession Number(s): [id number] cc: Tamica Bullard; Name,Krzysztof PERSON EXAMINATION: XR TIBIA AND FIBULA, LEFT CLINICAL INFORMATION: Pain status post fall. COMPARISON: Left foot radiographs dated 11/27/2017. TECHNIQUE: AP and lateral views of the left tibia and fibula were obtained. FINDINGS: The left tibia and left fibula are intact. There is no dislocation. The ankle mortise appears maintained. The knee joint appears maintained. There are screws within the proximal aspect of the first metatarsal bone. Regional soft tissue appears normal. XR/XR tibia fibula LT 2V IMPRESSION: No fracture or dislocation. Dictated By: Charly Jackson Jr DO Signed By: <Electronically signed by Charly Jackson Jr, DO inOV> 09/28/23 1502 DD/ 1449 TD/TT: Ski Instructor: TA [facility] External Provider IMG XR PROCEDURES Final Result * XR Knee 4+ Views Right (09/28/2023 1:34 PM EDT) Anatomical Region Laterality Modality Lower Extremities, Knee Right Radiogra phic Imaging 09/28/2023 1:34 PM EDT Narrative 09/28/2023 3:13 PM EDT ? [facility] ?[address] ?[place] [address] ?XRay Report ? Signed ? Patient: Robert,Tenisha V ?MR#: [id number] ?? 14 ? : 1960 ?Acct:[id number] ? Age/Sex: 62 / F ?ADM Date: 09/28/23 ? Loc: HO.ED ? Attending Dr: ? Ordering Physician: Nella Mercer ?? Date of Service: 09/28/23 ?? Procedure(s): XR knee RT 4V ?? Accession Number(s): [id number] ? cc: Krzysztof Martell MD; Nella Mercer ? EXAMINATION: ?? XR KNEE, RIGHT ? CLINICAL INFORMATION: ?? Pain and swelling. Unable to bear weight. ? COMPARISON: ?? Right knee radiographs dated 06/21/2017. ? TECHNIQUE: ?? Four views of the right knee. ? FINDINGS: ?? There is no fracture or dislocation. Joint spaces are well-maintained. ?? There may be a very small suprapatellar effusion. Regional soft tissue ?? is normal. ? XR/XR knee RT 4V ?? IMPRESSION: ?? No fracture or dislocation. Possible small right suprapatellar joint ?? effusion. ? Dictated By: ?Charly Jackson Jr DO ? Signed By: ?<Electronically signed by Charly Jackson Jr, DO in OV> ?09/28/23 1509 ? DD/ 1334 ? TD/TT: ? Ski Instructor: CB ? Procedure Note Jerzy, Image - 09/28/2023 [facility] [address] [place] [address] XRay Report Signed Patient: Tenisha Jones VMR#: [id number] 14 : 1960Acct:[id number] Age/Sex: 62 / FADM Date: 09/28/23 Loc: HO.ED Attending Dr: Ordering Physician: Nella Mercer Date of Service: 09/28/23 Procedure(s): XR knee RT 4V Accession Number(s): [id number] cc: Krzysztof Martell MD; Nlela Mercer EXAMINATION: XR KNEE, RIGHT CLINICAL INFORMATION: Pain and swelling. Unable to bear weight. COMPARISON: Right knee radiographs dated 06/21/2017. TECHNIQUE: Four views of the right knee. FINDINGS: There is no fracture or dislocation. Joint spaces are well-maintained. There may be a very small suprapatellar effusion. Regional soft tissue is normal. XR/XR knee RT 4V IMPRESSION: No fracture or dislocation. Possible small right suprapatellar joint effusion. Dictated By: Charly Jackson Jr, DO Signed By: <Electronically signed by Charly Jackson Jr, DO inOV> 09/28/23 1509 DD/ 1334 TD/TT: Ski Instructor: TA [facility] External Provider IMG XR PROCEDURES Final Result documented in this encounter Visit Diagnoses Diagnosis Vitamin B 12 deficiency Other B-complex deficiencies documented in this encounter Additional Health Concerns Assessment Noted Time PHQ-9 Depression Total Score: 0 05/29/19 24 9:06 AM EDT documented as of this encounter Care Teams Counter Cutter Relationship Specialty Start Date End Date Name, MD Krzysztof [address] [place] [address] PCP - General Family Medicine 02/12/18 documented as of this encounter
--- OUTSIDE RECORDS SUMMARY | 2024-03-13 12:29 | XMS_ITS | Encounter Summary ---
Author Organization [facility] Address [address] [place] [address] Care Team Providers Care Chief Operating Officer Name Role Phone Name, Krzysztof PERSON Primary Care Provider [phone] Reason for Visit * Reason Comments Uterine Prolapse Encounter Details Date Type Department Care Team (Late st Contact Info) Description 03/06/2024 1:00 PM EST Office Visit Urogynecology - [address] [address] Angelica Gunderson, [employer] [address] [address] Pyuria (Primary Dx); Cystocele with rectocele Social History Tobacco Use Types Packs/Day Years Used Date Smoking Tobacco: Every Day Cigarettes Smokeless Tobacco: Never Tobacco Cessation:Ready to Q uit: Not Asked; Counseling Given: Not Answered Alcohol Use Standard Drinks/Week Comments Yes 0 (1 standard drink = 0.6 oz pur e alcohol) Sex and Gender Information Value Date Recorded Sex Assigned at Not on file Gender Identity Not on file Sexual Orientation Not on file Job Start Date Occupation Industry Not on file Not on file Not on file documented as of this encounter Last Filed Vital Signs Vital Sign Reading Time Taken Comments Blood Pressure 130/85 03/06/2024 12:57 PM EST Pulse 94 03/06/2024 12:57 PM EST Temperature - - Respiratory Rate - - Oxygen Saturation - - Inhaled Oxygen Concentration - - Weight 95.3 kg (210 lb) 03/06/2024 12:57 PM EST Height - - Body Mass Index 33.89 04/16/2023 2:10 PM EST documented in this encounter Progress Notes * Angelica Lowe Neptali, [employer] - 03/06/2024 1:00 PM EST UROGYNECOLOGY FOLLOW UP VISIT DATE: 03/05/2024 CHIEF COMPLAINT: Tenisha Jones is a 63 y.o. female who presents for a follow-up of rectocele. Epic reviewed Note surgical records in historical epic . Pt reports pulling discomfort in lower pelvic region radiating out bilaterally for 4 weeks. Bruises sensation with palpation. Denies dysuria. No post void fullness Increased urinary frequency. Reports loose stools and diarrhea intermittent halfway Strange consistency to stool No change in prolapse or sensation of vaginal bulge. Summary from Last Visit : Last seen by Dr Ibarra for pelvic pain and prolapse She is s/p laparoscopic supracervical hysterectomy, with bilateral salpingectomy, laparoscopic sacrocolpopexy retropubic mid-urethral sling, posterior colporrhaphy and perineorrhaphy and cystourethroscopy on 05/15/2022. Dr Arzola. POP-Q: Prolapse Noted: Yes Aa: -2 Ba: -2 C: -8 GH: 3 PB: 3 TVL: 9 Ap: 0 Bp: 0 D: -9 Pt was given extensive counseling for surgical repair of prolapse. She states history of IBS, she was advised to have bowel function improved prior to having surgicalrepair. History Since Last Visit: She was diagnosed with ventral hernia in November 2023. Her wound would not close, she went back to the OR x 2. Pt seen by Dr Simon for UC and diverticulitis. She was treated with conservative measures. No medscurrently for this condition. Scheduled to return in april. REVIEW OF SYSTEMS (ROS): Negative to review except as above in HPI. PAST/FAMILY/SOCIAL HISTORY (PFSH): Past Surgical History: No date: SECTION Comment: PROCEDURE: HISTORICAL ; COMMENT: 2 No date: CHOLECYSTECTOMY Comment: PROCEDURE: HISTORICAL CHOLECYSTECTOMY 08/24/2016: COLONOSCOPY Comment: PROCEDURE: HISTORICAL COLONOSCOPY; COMMENT: Diverticulosis, colonic polyps (Hyperplastic 0.45 cmat greatest diameter No date: OTHER SURGICAL HISTORY Comment: PROCEDURE: ---- OTHER ----; COMMENT: 4 foot surgeries No date: OTHER SURGICAL HISTORY Comment: PROCEDURE: ---- OTHER ----; COMMENT: hist laparoscopy No date: TONSILLECTOMY Comment: PROCEDURE: HISTORICAL TONSILLECTOMY Past Medical History: No date: Abdominal bloating Comment: DX:Abdominal bloating No date: GERD (gastroesophageal reflux disease) Comment: DX:GERD (gastroesophageal reflux disease) 04/10/2010: Historical Medical DX Comment: DX:Alcohol abuse, episodic 05/23/2010: Hyperlipidemia Comment: DX:Hyperlipidemia No date: IBS (irritable bowel syndrome) Comment: DX:IBS (irritable bowel syndrome) 04/21/2005: Obesity, unspecified Comment: DX:Obesity, unspecified 04/21/2005: Tobacco use disorder Comment: DX:Tobacco use disorder Family History Problem Relation Name Age of Onset Esophageal cancer Brother 77.00 Maternal 1/2 brother Stomach cancer Maternal Grandfather Other (Other: cardiomyopathy) Mother at the age of 66.goiter, LOGISTICS COORDINATOR cancer ? Other (Other: valvular heart disease) Father at the age of 46. Breast cancer Neg Hx Ovarian cancer Neg Hx Colon cancer Neg Hx Uterine cancer Neg Hx Prostate cancer Neg Hx Pancreatic cancer Neg Hx reports that she has been smoking cigarettes. She has never used smokeless tobacco. She reports current alcohol use. She reports that she does not use drugs. I have reviewed the PFSH in the electronic medical record, and have updated them as necessary. Maryann Gunderson NP OBJECTIVE: There were no vitals filed for this visit. Physical Exam Life Skills Worker present: no Constitutional: BMI - There is no height or weight on file to calculate BMI. General - Awake, alert, no acute distress. Head - Normocephalic, Atraumatic Pulmonary - Normal respiratory effort, Speaking in full sentences comfortably Abdominal - Soft, Nondistended, Nontender. No rebound or guarding Pelvic: External Genitalia: Normal external genitalia, No erythema, No discharge. Urethral Meatus: Normal urethral meatus Urethra: Supine cough stress test negative. Vagina: Atrophic epithelium POP-Q: Prolapse Noted: Yes Aa: -2 Ba: -2 C: -8 GH: 3 PB: 3 TVL: 9 Ap: +1 Bp: +1 D: 9 Levator Ani Contraction: Flicker (1/5) Trace but instant contraction: <1 second Levator Ani Tone: Normal and Able to relax Levator Ani Tenderness: none Bimanual: {Small, mobile, antiverted uterus, No adnexal masses POST-VOID RESIDUAL MD performed (See procedure note below). Procedure Note: A catheterization was performed to check PVR and UA. I cleansed the urethral meatus with Betadine. Under sterile techniques a straight cath was inserted. Specimen was collected without difficulty. Patient tolerated procedure well. Maryann Gunderson NP Post-Void Residual: 20 ml. I have reviewed the post-void residual, and have independently interpreted it as: neg for urinary retention URINE DIPSTICK performed due to pelvic pain. Leuks: small Nitrites: neg Heme: neg I have reviewed the urine dipstick results, and have independently interpreted it as: presumptive urinary tract infection and for hematuria Assessment & Diagnosis: Pelvic Organ Prolapse We discussed the nature of pelvic organ prolapse, and reviewed basic alternatives includin. expectant management (no treatment) 2. pelvic floor physical therapy 3. pessary management- pt tried in the past with LOGISTICS COORDINATOR 4. surgical repair. We discussed the elective nature of prolapse treatment, which in nearly all cases can be postponed or avoided if symptoms are not bothersome or inhibiting to one???s level of function and/or quality of life. A typical pessary management routine was outlined, the need for periodic removal, and the need for periodic office visits were discussed. We discussed arranging a separate visit for a pessary fittingand for pessary care teaching. We reviewed surgical techniques for prolapse repair, including vaginal, laparoscopic, and abdominalapproaches. We discussed pt multiple comorbid conditions. She has appt for treatment for her ulcerative colitis, IBS and hernia Recommended to complete evaluation for colitis. Option for pessary fitting to assess change in pelvic discomfort with use. We discussed her history of UTI's and hematuria. Discussed plan of care including urine culture andpending treatment. Discussed recommended CT urogram and cystoscopy. Provided education regarding monitoring symptoms of infection to determine risk factors. Macrodantin suppression. D mannose reviewed if needed after culture results. Hygiene and postmenopausal state addressed as risk factors. UTIs (N39.0) We discussed abnormal UA We discussed the use of estrace vaginal cream. We discussed this in light of the findings regardingrisks of systemic estrogen including breast disease, heart disease, and blood clots as well as other risks. We also discussed that with vaginal estrogen there is far less systemic absorption and current research suggests that this is likely a less risky modality. We also encouraged her to consult with her general practitioner or oncologist before starting this medicine, but that we feel it is likely a safe component of her treatment plan. PLAN Urine sent for culture Treatment pending final results Discussed risks of UTI with diarrhea and bowel dysfunction . Will provide plan of care for prevention if UTI persist RTC 6 months or sooner as needed Treatment plan: Risk of morbidity, mortality and/or complications of treatment plan: Low I spent a total of 40 minutes on the date of the service, in seeing the patient and performing the following activities: Preparing to see the patient (e.g. reviewing tests) Performing a medically appropriate examination and/or evaluation Counseling and educating the patient, family or caregiver Documenting clinical information in the electronic health record Coordination of care (not separately reported) My final recommendations will be communicated back to the requesting physician by way of shared Medical record or letter via US mail. Maryann Gunderson NP 03/05/2024 documented in this encounter Plan of Treatment Not on file documented as of this encounter Procedures Procedure Name Priority Date/Time Associated Diagnosis Comments CULTURE URINE Routine 03/06/2024 1:58 PM EST Pyuria documented in this encounter Results * Culture urine (03/06/2024 1:58 PM EST) Culture, Urine <1,000 cfu/ml mixed bacterial nimco 03/08/2024 10:45 AM EST [facility] Urine Urinary bladder structure / Unknown Non-blood Collection / Unknown 03/06/2024 1:58 PM EST 03/06/2024 1:58 PM EST Angelica Gunderson NP LAB MICROBIOLOGY - GENERAL ORDERABLES [facility] [address] [place] [address], documented in this encounter Visit Diagnoses Diagnosis Pyuria- Primary Other nonspecific finding on examination of urine Cystocele with rectocele documented in this encounter Historical Medications * This list may reflect changes made after this encounter. Medication Sig Dispensed Refills Start Date End Date PHENobarbital-hyoscyamine -atropine-scopoloamine () 16.2-0.1037 -0.0194 mg per tablet Take 1 tablet by mouth. polyethylene glycol (MIRALAX) 17 gram packet Take 17 g by mouth 1 (one) time each day. 05/15/2022 docusate sodium (COLACE) 100 mg capsule Take 1 capsule (100 mg total) by mouth 2 (two) times a day. HYDROcodone-acetaminophen (VICODIN) 5-300 mg per tablet Take 1 tablet by mouth. 05/16/2022 cyanocobalamin (VITAMIN B-12) 1,000 mcg/mL injection Inject 1 mL (1,000 mcg total) into the shoulder, thigh, or buttocks every 30 (thirty) days. 02/09/2023 Vitamin D3 25 mcg (1,000 unit) capsule take 1 capsule (25 mcg) by mouth once per day. ibuprofen (ADVIL,MOTRIN) 800 mg tablet Take 1 tablet (800 mg total) by mouth 3 (three) times a day with meals. 10/24/2023 PARoxetine (PAXIL) 10 mg tablet Take 1 tablet (10 mg total) by mouth 1 (one) time each day. added in this encounter Care Teams Chief Operating Officer Relationship Specialty Start Date End Date Name, MD Krzysztof [address] [place], [place] PCP - General Internal Medicine 12/22/10 documented as of this encounter
--- OUTSIDE RECORDS SUMMARY | 2024-03-13 12:29 | XMS_ITS | Encounter Summary ---
Demographics Address [address] [place] [address] Mobile Phone Home Phone Email Address Preferred Language en Marital Status Legally Protestant Affiliation Unknown Race White Ethnic Group Not or Lati no Author Organization [employer] Address [address] [place] [address] Care Team Providers Care Blender Name Role Phone Name, Krzysztof PERSON Primary Care Provider [phone] Encounter Details Date Type Department Care Team (Late st Contact Info) Description 01/29/2024 Orders Only [facility] External Provider, [facility] Social History Tobacco Use Types Packs/Day Years [...] Description 03/21/2024 9:30 AM EST Clinical Support [facility] [address] [place] [address] 04/25/2024 10:00 AM EDT Office Visit [facility] [address] [place] [address] Name, MD Krzysztof [address] [facility] [address] documented as of this encounter Procedures Procedure Name Priority Date/Time Associated Diagnosis Comments US THYROID Routine 02/04/2024 8:00 AM EST LDCT LUNG SCREENING Routine 01/29/2024 8 :09 AM EST documented in this encounter Results * US Thyroid (02/04/2024 8:00 AM EST) Anatomical Region Laterality Modality Head, Neck Ultrasound 02/04/2024 8:00 AM EST Narrative 03/13/2024 11:38 AM EST ? [facility] ?[address] ?[place] [address] ? Ultrasound Report ? Signed ? Patient: Robert,Tenisha V ?MR#: [id number] ?? 14 ? : 1960 ?Acct:[id number] ? Age/Sex: 63 / F ?ADM Date: 12/23/24 ? Loc: HO.US ? Attending Dr: Carla Prieto MD ? Ordering Physician: Carla Prieto MD ?? Date of Service: 02/04/24 ?? Procedure(s): US thyroid ?? Accession Number(s): [id number] ? cc: Carla Prieto MD; Name,Krzysztof PERSON ? EXAMINATION: ??US THYROID ? HISTORY: E04.1 [...] signed by Stuart Cisneros MD in OV> ?03/13/24 1135 ? DD/DT: 02/03/ 0800 ? TD/TT: 02/04/24 0806 ? Coldfusion: ? Procedure Note Donotuseinterpreter, Image - 03/13/[address] [address] Ultrasound Report Signed Patient: Tenisha Jones VMR#: [id number] 14 : 1960Acct:[id number] Age/Sex: 63 / FADM Date: 02/04/24 Loc: HO.US Attending Dr: Carla Prieto MD Ordering Physician: Carla Prieto MD Date of Service: 02/04/24 Procedure(s): US thyroid Accession Number(s): [id number] cc: Carla Prieto MD; Name,Krzysztof PERSON EXAMINATION: [...] Stuart Cisneros MD 03/13/2024 11:35 AM EST RP Dictated By: Stuart Cisneros MD Signed By: <Electronically signed by Stuart Cisenros MD in OV> 03/13/24 1135 DD/ 08 TD/TT: 02/04/24 0806 Coldfusion: us [facility] External Provider IMG US PROCEDURES Final Result * CT Lung Screening Low dose (01/29/2024 8:09 AM EST) Anatomical Region Laterality Modality Lung Computed Tomogra phy 01/29/2024 8:09 AM EST Narrative 03/12/2024 8:51 AM EST ? [facility] ?[address] ?[place] [address] ? CT Scan Report ? Signed ? Patient: Robert,Tenisha V ?MR#: [id number] ?? 14 ? : 1960 ?Acct:[id number] ? Age/Sex: 63 / F ?ADM Date: 01/29/24 ? Loc: HO.CT ? Attending Dr: Richa Wing PA-C ? Ordering Physician: Richa Wing PA-C ?? Date of Service: 01/29/24 ?? Procedure(s): CT lung screening ?? Accession Number(s): [id number] ? cc: May,Richa Maurer PA-C; Name,Krzysztof PERSON ? Report Number: ?? [id number]: Total DLP = ?? 73.00 mGy-cm ?? [...] Exam submitted for review 03/12/2024 7:48 AM [facility]. ? FINDINGS: ? PULMONARY NODULES: ?? -A [...] for CT CHEST LOW DOSE CANCER SCREENING ([id number]) ?? can be placed. ? Electronically signed by: ??Joaquim Loyola MD ??03/12/2024 08:48 AM EST RP ? Dictated By: ?Joaquim Loyola MD ? Signed By: ?<Electronically signed by Joaquim Loyola MD in OV> ?03/12/24 0848 ? DD/ 0809 ? TD/TT: 01/29/24 0843 ? Coldfusion: ? Procedure Note Jerzy, Image - 03/12/[address] [address] [address] Scan Report Signed Patient: Tenisha Jones R#: [id number] 14 : 1960Acct:[id number] Age/Sex: 63 / FADM Date: 01/29/24 Loc: HO.CT Attending Dr: Richa Wing PA-C Ordering Physician: Richa Wing PA-C Date of Service: 01/29/24 Procedure(s): CT lung screening Accession Number(s): [id number] cc: Richa Wing PA-C; Name,Krzysztof PERSON Report Number: [id number]: Total DLP = 73.00 mGy-cm EXAMINATION: CT [...] Exam submitted for review 03/12/2024 7:48 AM SEC[facility] M[employer]ER. FINDINGS: PULMONARY NODULES: -A few tiny calcified [...] for CT CHEST LOW DOSE CANCER SCREENING ([id number]) can be placed. Electronically signed by: Joaquim Loyola MD 03/12/2024 08:48 AM [facility] [place] [place] Dictated By: Joaquim Looyla MD Signed By: <Electronically signed by Joaquim Loyola MD in OV> 03/12/24 0848 DD/ 0809 TD/TT: 01/29/24 0843 Coldfusion: [facility] External Provider IMG CT PROCEDURES Edited Result - Final documented in this encounter Visit Diagnoses Not on filedocumented in this encounter Additional Health Concerns Assessment Noted Time PHQ-9 Depression Total Score: 0 05/29/19 24 9:06 AM EDT documented as of this encounter Care Teams Blender Relationship Specialty Start Date End Date Name, MD Krzysztof [address] [place] [address] PCP - General Family Medicine 02/12/18 documented as of this encounter
--- OUTSIDE RECORDS SUMMARY | 2024-03-13 12:29 | XMS_ITS | Encounter Summary ---
Author Organization [employer] Address [address] [facility] 7t [place] [address] Care Team Providers Care Performance Test Architect Name Role Phone Name, Krzysztof PERSON Primary Care Provider [phone] Reason for Visit * Reason Onset Date Comments юлия recalls 02/14/2024 Encounter Details Date Type Department Care Team ([facility] st Contact Info) Description 02/14/2024 Telephone [facility] [address] [place], [place] [phone] Carolina Chopra [place] юлия recalls Social History Tobacco Use Types Packs/Day Years [...] encounter Miscellaneous Notes * Telephone Encounter - Carolina Chopra MA - 02/14/2024 3:30 PM EST T/C placed to pt. Scheduled recall. Pt agrees with plan. Reminder letter sent . documented in this encounter Plan of Treatment Upcoming Encounters Date Type Department Care Team (Late st Contact Info) Description 03/21/2024 9:30 AM EST Clinical Support [facility] [address] [place] [phone] 04/25/2024 10:00 AM EDT Office Visit [facility] [address] [place] [phone] Name, MD Krzysztof [address] [place] [phone] documented as of this encounter Visit Diagnoses Not on filedocumented in this encounter Additional Health Concerns Assessment Noted Time PHQ-9 Depression Total Score: 0 05/29/19 24 9:06 AM EDT documented as of this encounter Care Teams Performance Test Architect Relationship Specialty Start Date End Date Name, MD Krzysztof [address] [place] [phone] PCP - General Family Medicine 02/12/18 documented as of this encounter
--- OUTSIDE RECORDS SUMMARY | 2024-03-13 12:29 | XMS_ITS | Encounter Summary ---
Author Organization [employer] Address [address] [facility] 7t [place] [address] Care Team Providers Care Parking Meter Collector Name Role Phone Name, Krzysztof PERSON Primary Care Provider Reason for Visit * Reason Comments B12 Injection Encounter Details Date Type Department Care Team (Latest Contact Info) Description 02/20/2024 9:30 AM EST Clinical Support [facility] [address] [place], [place] [phone] Chitra Madrid RN [address] [place], [place] [phone] Vitamin B 12 deficiency Social History Tobacco [...] AM EDT documented as of this encounter Progress Notes * Chitra Madrid RN - 02/20/2024 9:30 AM EST S: Pt here for nurse visit for Vitamin B-12 Injection. Pt states that she has recently been sick with a GI virus and was coughing and vomiting. Pt reports symptoms have resolved but now c/o right sided lower back pain radiating down the back of her right thigh. Pt reports that she is icing her backand using Ibuprofen as rx and trying to walk as much as possible. Reports that pain is improving slightly but is still present. O: Standing order verified 08/21/23. A: Pt tolerated IM injection to right deltoid well. No adverse reaction noted. P: Pt advised of upcoming nurse visit for Vitamin B-12 Injection and given appointment reminder card. Recommended that pt come to [facility] prn for imaging if back pain does not continue to improve. Pt verbalized understanding and states agreement with plan. documented in this encounter Plan of Treatment Upcoming Encounters Date Type Department Care Team (Late st Contact Info) Description 03/21/2024 9:30 AM EST Clinical Support [address] [address] 04/25/2024 10:00 AM EDT Office Visit [address] [address] Name, MD Krzysztof [address] [place] [phone] documented as of this encounter Visit Diagnoses Diagnosis Vitamin B 12 deficiency Other B-complex deficiencies documented in this encounter Administered Medications Active Administered Medications - up to 3 most recent administrations Medication Order MAR Action Action Date Dose Rate Site cyanocobalamin (Vitamin B-12) injection 1,000 mcg 1,000 mcg, Intramuscular, Every 30 days, First dose on Sun08/22/23 at 0900Indications:Vitamin B 12 deficiency Given 02/20/2024 9:38 AM EST 1,000 mcg Right Deltoid Given 01/22/2024 9:43 AM EST 1,000 mcg Le ft Deltoid Given 12/21/2023 9:40 AM EST 1,000 mcg Ri ght Deltoid documented in this encounter Additional Health Concerns Assessment Noted Time PHQ-9 Depression Total Score: 0 05/29/19 24 9:06 AM EDT documented as of this encounter Care Teams Parking Meter Collector Relationship Specialty Start Date End Date Name, MD Krzysztof [address] [place] [address] PCP - General Family Medicine 02/12/18 documented as of this encounter
--- OUTSIDE RECORDS SUMMARY | 2024-03-13 12:29 | XMS_ITS | Encounter Summary ---
Author Organization [facility] [facility] [employer] Address [address] [place] [address] 7[address] [place] [address] Care Team Providers Care Plumbing Warehouse Helper Name Role Phone Name, Krzysztof PERSON Primary Care Provider [phone] Reason for Visit * Reason Onset Date Comments Med Refill 08/21/2022 Encounter Details Date Type Department Care Team (Late st Contact Info) Description 08/21/2022 Refill [facility] [address] [place] [address] [phone] Name, MD Krzsyztof [address] [place] [address] Social History Tobacco Use Types Packs/Day Years [...] Description 03/21/2024 9:30 AM EST Clinical Support [facility] [address] [place] [phone] 04/25/2024 10:00 AM EDT Office Visit [facility] [address] [place] [address] Name, MD Krzysztof [address] [place] [phone] documented as of this encounter Visit Diagnoses Not on filedocumented in this encounter Care Teams Plumbing Warehouse Helper Relationship Specialty Start Date End Date Name, MD Krzysztof [address] [place] [phone] PCP - General Family Medicine 02/12/18 documented as of this encounter
--- OUTSIDE RECORDS SUMMARY | 2024-03-13 12:29 | XMS_ITS | Encounter Summary ---
Author Organization [employer] In[employer] [facility] [employer] Address [address] [place] [address] 7[address] [place] [address] Care Team Providers Care Saddle Stitch Operator Name Role Phone Name, Krzysztof PERSON Primary Care Provider [phone] Encounter Details Date Type Department Care Team ([facility] Contact Info) Description 01/18/2022 Abstract [facility] [address] [place] [address] [phone] Name, MD Krzysztof [address] [place] [address] [phone] Social History Tobacco Use Types Packs/Day Years Used Date Smoking Tobacco: Every Day Cigarettes Smokeless Tobacco: Current Depression Answer Date Recorded Patient Health Questionnaire-2 [...] suspected to have Coronavirus/COVID-19? No / Unsure 01/20/2022 11:08 AM EST documented as of this encounter Plan of Treatment Upcoming Encounters Date Type Department Care Team ([facility] Contact Info) Description 03/21/2024 9:30 AM EST Clinical Support [facility] [address] [place] [address] [phone] 04/25/2024 10:00 AM EDT Office Visit [address] [phone] Name, MD Krzysztof [address] [place] [address] documented as of this encounter Visit Diagnoses Not on filedocumented in this encounter Care Teams Saddle Stitch Operator Relationship Specialty Start Date End Date Name, MD Krzysztof [address] [place] [address] PCP - General Family Medicine 02/12/18 documented as of this encounter
--- OUTSIDE RECORDS SUMMARY | 2024-03-13 12:29 | XMS_ITS | Encounter Summary ---
Author Organization [employer] Address [address] [place] [address] 7 [place] [address] Care Team Providers Care Ground Host/Hostess Name Role Phone Name, Krzysztof PERSON Primary Care Provider [phone] Encounter Details Date Type Department Care Team (Late st Contact Info) Description 07/01/2022 Orders Only [facility] [address] [place], [place] [phone] Nils Meza MD [address] [place], [place] [phone] Social History Tobacco Use Types Packs/Day Years [...] Description 03/21/2024 9:30 AM EST Clinical Support [facility] [address] [place] [address] [phone] 04/25/2024 10:00 AM EDT Office Visit [facility] [address] [place] [address] [phone] Name, MD Krzysztof [address] [place] [phone] documented as of this encounter Visit Diagnoses Not on filedocumented in this encounter Care Teams Ground Host/Hostess Relationship Specialty Start Date End Date Name, MD Krzysztof [address] [place] [address] PCP - General Family Medicine 02/12/18 documented as of this encounter
--- OUTSIDE RECORDS SUMMARY | 2024-03-13 12:29 | XMS_ITS | Clinical Summary ---
Author Organization [facility] [address] [place] [address] [place] [phone] Phone Care Team Providers Care Atm Servicer Name Role Phone Name, Krzysztof PERSON Primary Care Provider [phone] Allergies Active Allergy Reactions Criticality Noted Date Comments Acetaminophen-Codeine Nausea And Vomiting 07/31 Atorvastatin High 04/22/2014 Other Reaction(s): Pain in feet Worsening leg pain Other reaction(s): Leg weakness Worsening leg pain Other Reaction(s): SEVER MUSCLE/FOOT PAIN Cefaclor Headache Low 04/21/2005 Other Reaction(s): DYSPNEA Codeine High 03/22/2015 Other Reaction(s): Stomach pain, Arthritis Metronidazole 04/23/2023 Other Reaction(s): Unknown Oxycodone High 05/04/2022 Other Reaction(s): Halluctions Other Reaction(s): GI UPSET,CONFUSION Penicillins Unknown 05/15/2022 Sertraline GI intolerance High 04/29/2018 Other Reaction(s): change in Mental status Other reaction(s): Gastritis Other Reaction(s): GI UPSET/LETHARGY/CONF USION Sulfamethoxazole-Trimet hoprim 04/23/2023 Other Reaction(s): Unknown mother with allergy Vancomycin Itching High 04/21/2005 Other Reaction(s): icthing Other reaction(s): Itching Medications Medication Sig Dispensed Refills Start Date End Date Status PARoxetine (PAXIL) 10 mg tablet Take 1 tablet (10 mg total) by mouth 1 (one) time each day. Active ibuprofen (ADVIL,MOTRIN) 800 mg tablet Take 1 tablet (800 mg total) by mouth 3 (three) times a day with meals. 10/24/2023 Active Vitamin D3 25 mcg (1,000 unit) capsule take 1 capsule (25 mcg) by mouth once per day. Active cyanocobalamin (VITAMIN B-12) 1,000 mcg/mL injection Inject 1 mL (1,000 mcg total) into the shoulder, thigh, or buttocks every 30 (thirty) days. 02/09/2023 Active HYDROcodone-acetamino phen (VICODIN) 5-300 mg per tablet Take 1 tablet by mouth. 05/16/2022 Active docusate sodium (COLACE) 100 mg capsule Take 1 capsule (100 mg total) by mouth 2 (two) times a day. Active polyethylene glycol (MIRALAX) 17 gram packet Take 17 g by mouth 1 (one) time each day. 05/15/2022 Active PHENobarbital-hyoscya gaqi-kucbbuxe-qvbwaji amine () 16.2-0.1037 -0.0194 mg per tablet Take 1 tablet by mouth. Active Encounters Date Type Department Care Team Description 03/06/2024 1:00 PM EST Office Visit Urogynecology - [address] [phone] Angelica Gunderson NP Pyuria (Primary Dx); Cystocele with rectocele 02/09/2024 8:30 AM EST - 02/09/2024 11:59 PM EST Hospital Encounter Radiology Department - [address] [phone] Encounter for screening mammogram for breast cancer Discharge Disposition: Home or Self Care from Last 3 Months Surgical History Surgery Date Site/Laterality Comments OTHER SURGICAL HISTORY PROCEDURE: ---- OTHER ----; COMMENT: 4 foot surgeries TONSILLECTOMY PROCEDURE: HISTORICAL TONSILLECTOMY CHOLECYSTECTOMY PROCEDURE: HISTORICAL CHOLECYSTECTOMY SECTION PROCEDURE: HISTORICAL ; COMMENT: 2 OTHER SURGICAL HISTORY PROCEDURE: ---- OTHER ----; COMMENT: hist laparoscopy COLONOSCOPY 08/24/2016 PROCEDURE: HISTORICAL COLONOSCOPY; COMMENT: Diverticulosis, colonic polyps (Hyperplastic 0.45 cmat greatest diameter Medical History Medical History Date Comments Tobacco use disorder 04/21/2005 DX:Tobacco use disorder Obesity, unspecified 04/21/2005 DX:Obesity, unspecified Historical Medical DX 04/10/2010 DX:Alcohol abuse, episodic Hyperlipidemia 05/23/2010 DX:Hyperlipidemi a GERD (gastroesophageal reflux disease) DX:GERD (gastroesophageal reflux disease) IBS (irritable bowel syndrome) D X:IBS (irritable bowel syndrome) Abdominal bloating DX:Abdominal bloating Family History Medical History Relation Name Comments Esophageal cancer Brother Maternal 1 /2 brother Other: valvular heart disease Father at the age of 46. Stomach cancer Maternal Grandfather Other: cardiomyopathy Mother a t the age of 66.goiter, DIET KITCHEN COOK cancer ? Breast cancer Neg Hx Colon cancer Neg Hx Ovarian cancer Neg Hx Pancreatic cancer Neg Hx Prostate cancer Neg Hx Uterine cancer Neg Hx Relation Name Status Comments Brother Father heart problems Maternal Grandfather Maternal Grandmother Marga CORDERO Mother cardimyopathy Sister 1 Alive heart problems Sister 2 Alive heart problems Son Alive Social History Tobacco Use Types Packs/Day Years [...] file Not on file Not on file Obstetrics History Para Term AB IAB SAB Ectopic Multiple Livin g Live Births 3 3 3 3 Date Outcome GA Total Labor Labor/2nd/3rd Weight Sex Type Anes PTL Anni A1 A5 Name Clin Term Term Term Last Filed Vital Signs Vital Sign Reading Time Taken Comments Blood Pressure 130/85 03/06/2024 12:57 PM EST Pulse 94 03/06/2024 12:57 PM EST Temperature - - Respiratory Rate - - Oxygen Saturation - - Inhaled Oxygen Concentration - - Weight 95.3 kg (210 lb) 03/06/2024 12:57 PM EST Height 167.6 cm (5' 6 ) 04/16/2023 2:10 PM EST Body Mass Index 33.89 04/16/2023 2:10 PM EST Plan of Treatment Health Maintenance Due Date Last Done Comments Pneumococcal Vaccine: Pediatrics (0 to 5 Years) and At-Risk Patients (6 to 64 Years) (1 of 2 - PCV) 1968 Cervical Cancer Screening: HPV 12/21/1983 Zoster Vaccines (1 of 2) 2012 Colorectal Cancer Screening: Colonoscopy 01/21/2022 HIV Screening 01/21/2022 Hepatitis C Screening 01/21/2022 Medicare Annual Wellness Visit 01/21/2022 Social Influencers of Health Screening 01/21/2022 COVID-19 Vaccine ( season) 2023 01/18/2022, 03/02/2021, 05/19/2020, Additional history exists Depression Screening 05/28/2024 05/29/2023 Breast Cancer Screening 02/08/2026 02/09/20 24, 01/06/2023, 12/31/2021, Additional history exists Cholesterol Screening (Lipid Panel) 06/30/2027 06/29/2022 DTaP,Tdap,and Td Vaccines (4 - Td or Tdap) 12/10/2033 12/11/2023, 01/01/2013, 10/21/2008 RSV Immunization Patients 60+ Years Old (1 - 1-dose 75+ series) 2037 Influenza [...] on patient's age to complete this topic MMR Vaccines Aged Out No longer eligi ble based on patient's age to complete this topic Meningococcal ACWY Vaccine Aged Out N o longer eligible based on patient's age to complete this topic RSV Immunization Patients Under 20 months Aged Out No longer eligible based on patient's age to complete this topic Varicella Vaccines Aged Out No longer eligible based on patient's age to complete this topic Procedures Procedure Name Priority Date/Time Associated Diagnosis Comments CULTURE URINE Routine 03/06/2024 1:58 PM EST Pyuria MG MAMMO DIGITAL SCREENING W DEVEN BILAT Routine 02/09/2024 8:44 AM EST Encounter for screening mammogram for breast cancer from Last 3 Months Results * Culture urine (03/06/2024 1:58 PM EST) Culture, Urine <1,000 cfu/ml mixed bacterial nimco 03/08/2024 10:45 AM EST [facility] Urine Urinary bladder structure / Unknown Non-blood Collection / Unknown 03/06/2024 1:58 PM EST 03/06/2024 1:58 PM EST Angelica Gunderson NP LAB MICROBIOLOGY - GENERAL ORDERABLES [facility] [address] [place] [address], * MG Mammo Digital Screening w Deven bilat (02/09/2024 8:44 AM EST) Anatomical Region Laterality Modality Breast Bilateral Mammography 02/11/2024 7:32 PM EST Impressions 02/11/2024 7:33 PM EST No mammographic evidence of malignancy. BREAST DENSITY: B - There are scattered areas of fibroglandular density. BI-RADS CATEGORY: 1 - NEGATIVE RECOMMENDATION: Screening bilateral mammogram is recommended in 1 year. MAMMO LOCATION: [facility], [address] [place] [address], [address], . -------- FINAL REPORT -------- Dictated By: Ashli Tirado Dictated Date: 02/11/2024 19:32 ET Assigned Physician: Ashli Tirado Reviewed and Electronically Signed By: Ashli Tirado Signed Date: 02/11/2024 19:33 ET Workstation ID: [id number] Transcribed By: Self Edit Transcribed Date: 02/11/2024 19:32 ET Narrative 02/11/2024 7:33 PM EST EXAM: Screening Mammogram CLINICAL: 63 years old, Female, routine annual exam. COMPARISON: 01/06/2023 and as far back as 12/02/2019 ?? TECHNIQUE: Bilateral MLO and CC views were obtained digitally with 3-D mammogram (digital breast tomosynthesis). Computer-aided detection was utilized in evaluation of this exam (CAD). FINDINGS: No new suspicious mass, architectural distortion, or suspicious calcifications. Procedure Note Ashli Tirado MD - 02/11/2024 EXAM: Screening Mammogram CLINICAL: 63 years old, Female, routine annual exam. COMPARISON: 01/06/2023 and as far back as 12/02/2019 TECHNIQUE: Bilateral MLO and CC views were obtained digitally with 3-Dmammogram (digital breast tomosynthesis). Computer-aided detection wasutilized in evaluation of this exam (CAD). FINDINGS: No new suspicious mass, architectural distortion, or suspiciouscalcifications. IMPRESSION: No mammographic evidence of malignancy. BREAST DENSITY: B - There are scattered areas of fibroglandular density. BI-RADS CATEGORY: 1 - NEGATIVE RECOMMENDATION: Screening bilateral mammogram is recommended in 1 year. MAMMO LOCATION: [facility], [address] [place] [address], [phone], . -------- FINAL REPORT -------- Dictated By: Ashli Tirado Dictated Date: 02/11/2024 19:32 ET Assigned Physician: Ashli Tirado Reviewed and Electronically Signed By: Ashli Tirado Signed Date: 02/11/2024 19:33 ET Workstation ID: [id number] Transcribed By: Self Edit Transcribed Date: 02/11/2024 19:32 ET Krzysztoffabiola CONTRERAS BI PROCEDURES from Last 3 Months Care Teams Atm Servicer Relationship Specialty Start Date End Date Name, MD [facility] [address] [facility] [place] P[facility] - General Internal Medicine 12/22/10
--- OUTSIDE RECORDS SUMMARY | 2024-03-13 12:29 | XMS_ITS | Encounter Summary ---
Demographics Address [address] [place] [address] Mobile Phone Home Phone Email Address Preferred Language en Marital Status Legally Caodaism Affiliation Unknown Race White Ethnic Group Not or Lati no Author Organization [employer] Address [address] [facility] 7t [place] [address] Care Team Providers Care Ornament Maker Hand Name Role Phone Name, Krzysztof PERSON Primary Care Provider [phone] Reason for Visit * Reason Onset Date Comments PA Clarification 12/19/2022 Prior Authorization 12/19/2022 Phenobarbita l Encounter Details Date Type Department Care Team ([facility] st Contact Info) Description 12/19/[address] [facility] [address] [place], [place] [phone] Name, MD Krzysztof [address] [place], [place] [phone] PA Clarification ; Prior Authorization (Phenobarbital) Social History Tobacco Use Types Packs/Day Years [...] encounter Miscellaneous Notes * Telephone Encounter - Geovanna Grnaado - 12/21/2022 1:27 PM EST TW returned call to [facility], a clarification of dosage was needed and was corrected with information on in chart. [facility] determined that a PA was not needed for this medication and that the Pharmacy was to call the Pharmacy Help Desk at [phone]. Pharmacy was called and informed. * Telephone Encounter - Mauro Figueroa - 12/19/2022 11:53 AM EST Tc from Cam with [facility] requesting a call from a nurse or provider in regards to a PA form that was received. ( Did specify which medication) Cam states that in order to approve some verification and clarification most be revised. Please contact Cam at [phone] documented in this encounter Plan of Treatment Upcoming Encounters Date Type Department Care Team (Late st Contact Info) Description 03/21/2024 9:30 AM EST Clinical Support [facility] [address] [place] [phone] 04/25/2024 10:00 AM EDT Office Visit [facility] [address] [place] [phone] Name, MD [place] [address] documented as of this encounter Visit Diagnoses Not on filedocumented in this encounter Care Teams Ornament Maker Hand Relationship Specialty Start Date End Date Name, MD Krzysztof [address] [place] [address] PCP - General Family Medicine 02/12/18 documented as of this encounter
== END 2024-03-13 08:55 | disposition home or self-care (01) ==
LOC: HO.LAB 08:54
PROVIDERS: PCP Internal Medicine Geriatric Medicine; Visit Provider Student in an Organized Health Care Education/Training Program
DX: E04.1 Nontoxic single thyroid nodule (principal); E03.9 Hypothyroidism, unspecified
CPT/HCPCS: 36415; 84439; 84443; 99212

== ENCOUNTER 2024-03-13 08:54 | Outpatient (AMB) | payer MEDICARE, MEDICAID, SELFPAY ==
[2024-03-13 08:56] VITALS: BP 100/78; PULSE 80; BMI 33.9
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
== END 2024-03-13 09:18 | disposition home or self-care (01) ==
PROVIDERS: PCP Internal Medicine Geriatric Medicine; Visit Provider Student in an Organized Health Care Education/Training Program
DX: E03.9 Hypothyroidism, unspecified (principal); E04.1 Nontoxic single thyroid nodule
CPT/HCPCS: 99213

== ENCOUNTER 2024-04-14 12:56 | Outpatient (AMB) | payer MEDICARE, MEDICAID, SELFPAY ==
--- NOTE | 2024-04-14 13:08 | MHC.OFFVIS ---
Vital Signs 04/14/24 13:09 Height 5 ft 6 in Weight 207 lb 3.752 oz BMI 33.4 BP 157/96 H Blood Pressure Location Lt brachial Position Sitting Pulse 98 Intake Visit Reasons: follow up Intake Note: Tenisha presents in the office as a follow up for her procedure. CC: Had a colonoscopy and she states she has IBS, leaky gut, lazy colon and now Ulcerative Colitis. She is not sure what she should do because she cannot follow diet plans because the IBS and Diverticulitis. She states that she is always suffering. Armorer Technician Required: No Allergies sertraline [From ZOLOFT] Allergy (Severe, Verified 04/14/24 13:09) GI UPSET/LETHARGY/CONFUSION atorvastatin [ATORVASTATIN] Allergy (Intermediate, Verified 04/14/24 13:09) SEVER MUSCLE/FOOT PAIN oxycodone [OXYCODONE] Allergy (Intermediate, Verified 04/14/24 13:09) GI UPSET,CONFUSION cefaclor [From Ceclor] Allergy (Mild, Verified 04/14/24 13:09) DYSPNEA Penicillins Allergy (Mild, Verified 04/14/24 13:09) DYSPNEA vancomycin [Vancomycin] Allergy (Mild, Verified 04/14/24 13:09) ITCHING acetaminophen [Tylenol-Codeine #3] Allergy (Unknown, Verified 04/14/24 13:09) Unknown penicillin V Allergy (Unknown, Verified 04/14/24 13:09) unknown metronidazole [From Flagyl] Adverse Reaction (Unknown, Verified 04/14/24 13:09) Unknown Bactrim Allergy (Unknown, Uncoded 04/14/24 13:09) Unknown HPI HPI follow up: Details: 62 yr old f here for f/u RECAP: Had been seeing May, ongoing diarrhea with constipation bouts she can go up to 8 times a day, feels prolapse has came back she takes colace she has gas bloating with veg says she has had lazy colon and IBS etc since GB removed aged 19 she had rectal and vaginal prolapse surgery 05/2022 she was intolerant of cholestyramine -made her sick recovering from ventral hernia repair abscess and just finished ABx, finally healing ibuprofen every other day at least OD last colonoscopy 2016--- no random bx done. hyperplastic polyp removed LABS: stool PCR GI--neg c diff neg celiac neg RAST--pos for egg whites, shrimp and scallop EGD/colonscopy 2023- severe diverticulosis colitis INTERIM: she has been having erratic bowek habits she might have flu illness at this time she had norvovirus recently she has fair appetite omeprazole not effective for reflux EXAM: GENERAL: The patient is well developed and nontoxic. VITAL SIGNS:see workflow HEENT: Nonicteric sclerae, PERRLA, EOMI. Oropharynx clear. Moist mucous membranes. Conjunctivae appear well perfused. No thyroid mass. CHEST: Chest wall is nontender. HEART: Regular rate and rhythm without murmurs. LUNGS: Clear to auscultation bilaterally. ABDOMEN: Soft, positive bowel sounds, nontender, no organomegaly.no flank tenderness--bandage lower abdo with seroma SKIN: No rash, no excessive bruising, petechiae, or purpura. NEUROLOGIC: Cranial nerves II-XII intact without motor/sensory deficit. Psych: nml affect A/P: 1/ Abn bowel habit with chronic colitis on the left side and active esophagitis 2/ satiety, nausea--r/o GOO PLAN: 1/ advised to stop NSAID can use tylenol 2/ omeprazole not helping her, will send pantoprazole 40 mg 3/ advised on entyvio given her sx, she is reluctant to take budesonide or other mesalamine [facility] Medical History (Updated 01/18/24 @ 13:23 by Matthias Robbins MD) Nicotine dependence, cigarettes, uncomplicated Abdominal wall mass Female bladder prolapse B12 deficiency Depression Hyperlipidemia Osteopenia Obesity Thyroid nodule Hypothyroidism (~2014) Surgical History Hx of abdominal surgery (04/30/23) History of incisional hernia repair (12/11/22) Previous section Hx of laparoscopy History of partial hysterectomy (05/2022) History of colonoscopy History of foot surgery Hx of mammogram Hx of cholecystectomy Hx of tonsillectomy History of esophagogastroduodenoscopy (EGD) Family History Father Heart disease Mother Cardiomyopathy Goiter Maternal Grandfather Stomach cancer Social History Alcohol intake: current Alcohol intake frequency: does not drink Patient Tobacco Use Status: Current everyday Tobacco user Tobacco use type: Cigarette Cigarette Packs Per Day: 0.5 Cigarettes Per Day: 10.0 Years Smoked: 40 - onset 22, 1.5-2ppd x 40yrs, 62+PYH Second Hand Smoke Exposure: No Physical Exam Vital Signs: Last Vital Signs Pulse 98 04/14/24 13:09 BP 157/96 H 04/14/24 13:09 BMI result Body Mass Index 33.4 Assessment & Plan Assessment & Plan (1) Abnormal bowel habits: Code(s): R19.8 - Other specified symptoms and signs involving the digestive system and abdomen Category: Medical Plan: see above Medications: New acetaminophen 1,000 mg (2 x 500 mg) PO Q6H PRN 60 caps 0RF pain Coding Level of Care Code Est Pt Level 3 (52303) Diagnoses Abnormal bowel habits R19.8
[2024-04-14 13:09] VITALS: BP 157/96; PULSE 98; BMI 33.4
--- OUTSIDE RECORDS SUMMARY | 2024-04-14 15:09 | XMS_ITS | Encounter Summary ---
Author Organization [facility] [employer] Address [address] [place] [address] Care Team Providers Care Manager Sterile Name Role Phone Name, Krzysztof PERSON Primary Care Provider [phone] Encounter Details Date Type Department Care Team (Late Contact Info) Description 07/14/2022 Abstract [facility] MEDICINE [address] [place] [address] [phone] NameKrzysztof MD [address] [place] [address] [phone] Social History Tobacco Use Types Packs/Day Years [...] Upcoming Encounters Date Type Department Care Team ([facility] Contact Info) Description 04/25/2024 10:00 AM EDT Office Visit [facility] MEDICINE [address] [place] [address] [phone] Name, [place] [address] 05/05/2024 1:00 PM EDT Clinical Support [facility] [place] [address] documented as of this encounter Procedures Procedure [...] PM EST Recommended routine annual mammo ( [facility]) us Historical Provider MD CHOCO GAINES Edited Result - Final documented in this encounter Visit Diagnoses Not on filedocumented in this encounter Care Teams Manager Sterile Relationship Specialty Start Date End Date Name, [place] [address] PCP - General Family Medicine 02/12/18 documented as of this encounter
--- OUTSIDE RECORDS SUMMARY | 2024-04-14 15:09 | XMS_ITS | Encounter Summary ---
Author Organization [facility] [employer] Address [address] [place] [address] [address] [place] [address] Care Team Providers Care Grader Patrol Name Role Phone Name, Krzysztof PERSON Primary Care Provider [phone] Reason for Visit * Reason Onset Date Comments Med Refill 08/21/2022 Encounter Details Date Type Department Care Team (Late st Contact Info) Description 08/21/2022 Refill [facility] MEDICINE [address] [place], [place] [phone] Name, MD Krzysztof [address] [place] [address] Social History Tobacco Use Types Packs/Day Years [...] Department Care Team (Late Contact Info) Description 04/25/2024 10:00 AM EDT Office Visit [address] [address] Name, MD Krzysztof [address] [place] [phone] 05/05/2024 1:00 PM EDT Clinical Support [address] [address] documented as of this encounter Visit Diagnoses Not on filedocumented in this encounter Care Teams Grader Patrol Relationship Specialty Start Date End Date Name, MD Krzysztof [address] [place] [address] PCP - General Family Medicine 02/12/18 documented as of this encounter
--- OUTSIDE RECORDS SUMMARY | 2024-04-14 15:09 | XMS_ITS | Encounter Summary ---
Author Organization [employer] Address [address] [place] [address] Care Team Providers Care News Production Supervisor Name Role Phone Name, Krzysztof PERSON Primary Care Provider [phone] Encounter Details Date Type Department Care Team (Late st Contact Info) Description 09/20/2023 Orders Only [facility] MEDICINE [address] [place] [address] Angelica Kyle RN Vitamin B 12 deficiency [...] Care Team (Late st Contact Info) Description 04/25/2024 10:00 AM EDT Office Visit [address] [address] Name, MD Krzysztof [address] [place] [phone] 05/05/2024 1:00 PM EDT Clinical Support [address] [address] documented as of this encounter Procedures Procedure [...] EDT Narrative 09/28/2023 3:06 PM EDT ? [facility] ?[address] ?[place] [address] ?XRay Report ? Signed ? Patient: Robert,Tenisha V ?MR#: [id number] ?? 14 ? : 1960 ?Acct:[id number] ? Age/Sex: 62 / F ?ADM Date: 08/16/24 ? Loc: HO.ED ? Attending Dr: ? Ordering Physician: Tamica Bullard ?? Date of Service: 09/28/23 ?? Procedure(s): XR tibia fibula LT 2V ?? Accession Number(s): [id number] ? cc: Tamica Bullard; Name,Krzysztof PERSON ? [...] 1502 ? DD/ 1449 ? TD/TT: ? Firer Locomotive: CB ? Procedure Note Jerzy, Image - 09/28/2023 [place] [address] XRay Report Signed Patient: Tenisha Jones VMR#: [id number] 14 : 1960Acct:[id number] Age/Sex: 62 / FADM Date: 09/28/23 Loc: HO.ED Attending Dr: Ordering Physician: Tamica Bullard Date of Service: 09/28/23 Procedure(s): XR tibia fibula LT 2V Accession Number(s): [id number] cc: Tamica Bullard; Name,Krzysztof PERSON EXAMINATION: XR [...] fracture or dislocation. Dictated By: Charly Jackson Jr, DO Signed By: <Electronically signed by Charly Jackson Jr, DO inOV> 09/28/23 1502 DD/ 1449 TD/TT: Firer Locomotive: TA [facility] External Provider IMG XR PROCEDURES Final Result * XR Knee 4+ Views Right (09/28/2023 1:34 PM EDT) Anatomical Region Laterality Modality Lower Extremities, Knee Right Radiogra phic Imaging 09/28/2023 1:34 PM EDT Narrative 09/28/2023 3:13 PM EDT ? [facility] ?[address] ?[place] [address] ?XRay Report ? Signed ? Patient: Robert,Tenisha V ?MR#: [id number] ?? 14 ? : 1960 ?Acct:[id number] ? Age/Sex: 62 / F ?ADM Date: 09/28/23 ? Loc: HO.ED ? Attending Dr: ? Ordering Physician: Nella Mercer ?? Date of Service: 09/28/23 ?? Procedure(s): XR knee RT 4V ?? Accession Number(s): [id number] ? cc: Krzysztof Martell MD; Nella Mercer [...] By: ?<Electronically signed by Charly Jackson Jr, in OV> ?09/28/23 1509 ? DD/ 1334 ? TD/TT: ? Firer Locomotive: CB ? Procedure Note Jerzy, Image - 09/28/2023 [facility] [address] [place] [address] XRay Report Signed Patient: Tenisha Jones VMR#: [id number] 14 : 1960Acct:[id number] Age/Sex: 62 / FADM Date: 09/28/23 Loc: HO.ED Attending Dr: Ordering Physician: Nella Mercer Date of Service: 09/28/23 Procedure(s): XR knee RT 4V Accession Number(s): [id number] cc: Krzysztof Martell MD; Nella Mercer EXAMINATION: XR KNEE, RIGHT CLINICAL INFORMATION: [...] right suprapatellar joint effusion. Dictated By: Charly Jacskon Jr, DO Signed By: <Electronically signed by Charly Jackson Jr, DO inOV> 09/28/23 1509 DD/ 1334 TD/TT: Firer Locomotive: TA [facility] External Provider IMG XR PROCEDURES Final Result documented in this encounter Visit Diagnoses Diagnosis Vitamin B 12 deficiency Other B-complex deficiencies documented in this encounter Additional Health Concerns Assessment Noted Time PHQ-9 Depression Total Score: 0 05/29/19 24 9:06 AM EDT documented as of this encounter Care Teams News Production Supervisor Relationship Specialty Start Date End Date Name, MD Krzysztof [address] [place] [address] PCP - General Family Medicine 02/12/18 documented as of this encounter
--- OUTSIDE RECORDS SUMMARY | 2024-04-14 15:09 | XMS_ITS | Encounter Summary ---
Author Organization [facility] Address [address] [place] [address] Care Team Providers Care Sand Cutter Operator Name Role Phone Krzysztof Arellano MD Primary Care Provider Unavailabl e Krzysztof Arellano MD Primary Care Provider Unavailabl e Reason for Visit * Reason Onset Date Comments Follow-up Appt Unavailable 01/26/2012 Encounter Details Date Type Department Care Team Description 01/26/2012 Telephone Adult Medicine [address] [address] NameKrzysztof MD Follow-up Appt Unavailable Social History Tobacco Use Types Packs/Day Years Used Date Smoking Tobacco: Every Day Cigarettes 0.5 Smokeless Tobacco: Never Comments:She has been advise d she should stop smoking. quit 01/2011 Alcohol Use Standard Drinks/Week Comments Yes 0 (1 standard drink = 0.6 oz pur e alcohol) occ Sex Assigned at Date Recorded Not on file Job Start Date Occupation Industry Not on file Not on file Not on file documented as of this encounter Miscellaneous Notes * Telephone Encounter - Mikaela Sandoval R.N. - 01/26/2012 11:15 AM EST Pt booked for 02/15 at 10;[address] arellano, message left for pt to call. she will need to confirm appointment or be rescheduled with triage. * Telephone Encounter - Irasema Braswell - 01/26/2012 11:10 AM EST Pt needs a [address] Arellano. She would prefer a morning appt. Please contact patient to schedule. documented in this encounter Plan of Treatment Not on file documented as of this encounter Visit Diagnoses Not on filedocumented in this encounter Care Teams Sand Cutter Operator Relationship Specialty Start Date End Date Name, MD Krzysztof PCP - General Internal Medicine 12/22/10 04/05/15 Name, MD Krzysztof PCP - General Internal Medicine 04/06/15 documented as of this encounter
--- OUTSIDE RECORDS SUMMARY | 2024-04-14 15:09 | XMS_ITS | Encounter Summary ---
Author Organization [facility] Address [address] [place] [address] Care Team Providers Care Developmental Services Worker Name Role Phone Krzysztof Martell MD Primary Care Provider Unavailabl e Krzysztof Martell MD Primary Care Provider Unavailabl e Reason for Visit * Reason Onset Date Comments Provider Call Back 11/28/2013 Encounter Details Date Type Department Care Team Description 11/28/2013 Telephone Adult Medicine [address] [address] Krzysztof Martell MD Provider Call Back Social History Tobacco Use Types Packs/Day Years [...] encounter Miscellaneous Notes * Telephone Encounter - Radha Paredes R.N. - 11/28/2013 2:52 PM EDT Pt states having feet pain, joint pain, feels like feet are on fire. States she held medication today and pain has decreased. Relayed message from Dr Martell, pt will stop lipitor and monitor pain, she plans to callback Sunday for further instructions. * Telephone Encounter - Radha Paredes R.N. - 11/28/2013 1:21 PM EDT TCt pt at [phone] (home), left message for pt to call back. * Telephone Encounter - Krzysztof Martell MD - 11/28/2013 9:29 AM EDT Call the patient and see if she is having the pain since starting on the Lipitor. If she is I wouldrecommend to stop the medication * Telephone Encounter - Marie Woods - 11/28/2013 9:11 AM EDT Caller requesting call back from provider: Is the caller the patient? YES If caller is not the patient, what is the callers name? N/A Callers relationship to patient? N/A If person calling is not the patient themselves, is there a verbal release in FYI or permanent comments for this person: YES Reason for call back: Patient is on new med for 10 days now, making her foot hurt worse not able towalk or stand on her feet. Patient wants to stop taking it for a few days to see what happens. Please call patient back to see if she can change to something else. Caller offered to speak with the nurse for assistance: YES Response: Patient offered to speak with nurse for assistance and patient agreed. Message forwarded to nurse. documented in this encounter Plan of Treatment Not on file documented as of this encounter Visit Diagnoses Not on filedocumented in this encounter Care Teams Developmental Services Worker Relationship Specialty Start Date End Date Jasbir, MD Krzysztof PCP - General Internal Medicine 12/22/10 04/05/15 Krzysztof Martell MD PCP - General Internal Medicine 04/06/15 documented as of this encounter
--- OUTSIDE RECORDS SUMMARY | 2024-04-14 15:09 | XMS_ITS | Encounter Summary ---
Author Organization [facility] Address [address] [place] [address] Care Team Providers Care Aircraft De Icer Installer Name Role Phone Name, Krzysztof PERSON Primary Care Provider Unavailabl e Encounter Details Date Type Department Care Team Description 03/08/2022 Release of Information Medical Records [address] [place] [phone] Abstract, Provider Social History Tobacco Use Types Packs/Day Years [...] file Not on file Not on file COVID-19 Exposure Response Date Recorded In the last 10 days, have yo u been in contact with someone who was confirmed or suspected to have Coronavirus/COVID-19? No / Unsure 03/01/2022 9:34 AM EST documented as of this encounter Plan of Treatment Not on file documented as of this encounter Visit Diagnoses Not on filedocumented in this encounter Care Teams Aircraft De Icer Installer Relationship Specialty Start Date End Date Name, MD Krzysztof PCP - General Internal Medicine 04/06/15 documented as of this encounter
--- OUTSIDE RECORDS SUMMARY | 2024-04-14 15:09 | XMS_ITS | Encounter Summary ---
Author Organization [facility] Address [address] [place] [address] Care Team Providers Care Neurological Surgery Teacher Name Role Phone Name, Krzysztof PERSON Primary Care Provider Unavailabl e Reason for Visit * Reason Onset Date Comments Surgery (Schedule) 11/07/2019 Encounter Details Date Type Department Care Team Description 11/07/2019 Telephone OBGYN - [facility] [address] [place], [place] [phone] Fantasma Magana MD [address] [place], [place] [phone] Surgery (Schedule) Social History Tobacco Use Types Packs/Day Years [...] Exposure Response Date Recorded In the last month, have you been in contact with someone who was confirmed or suspected to have Coronavirus / COVID-19? No / Unsure 10/22/2019 8:36 AM EDT documented as of this encounter Miscellaneous Notes * Telephone Encounter - Fantasma Magana MD - 11/07/2019 12:14 PM EDT She is currently being scheduled, she will follow-up with me for hysterectomy preop prior to her hysterectomy. She is aware that she may leave her pessary in place guarding her pessary she may make an appointment to have it replaced or if she feels comfortable without it she can avoid replacement. Fantasma Magana MD * Telephone Encounter - Bridgette Rosado - 11/07/2019 9:49 AM EDT Patient called and states discussed with Dr Magana having surgery for a prolapsed blatter and rectal prolapse. Pt also states her pessary fell out and wants Dr Magana to call her. Does not want to speak with the [place]. documented in this encounter Plan of Treatment Not on file documented as of this encounter Visit Diagnoses Not on filedocumented in this encounter Care Teams Neurological Surgery Teacher Relationship Specialty Start Date End Date Name, MD Krzysztof PCP - General Internal Medicine 04/06/15 documented as of this encounter
--- OUTSIDE RECORDS SUMMARY | 2024-04-14 15:09 | XMS_ITS | Clinical Summary ---
Demographics Address [address] [place] [address] Mobile Phone Home Phone Email Address Preferred Language en Marital Status Legally Spiritism Affiliation Unknown Race White Ethnic Group Not or Lati no Author Organization [employer] Address [address] [place] [address] [address] [place] [address] Care Team Providers Care Laminating Machine Offbearer Name Role Phone Name, Krzysztof PERSON Primary Care Provider [phone] Allergies Active Allergy Reactions Criticality Noted Date [...] sprays into affected nostril(s) at bed time. 022 Active folic acid (Folvite) 1 MG tablet Take 1 tablet by mouth at bed time. Active ketotifen (Zaditor) 0.025 % ophthalmic solution Administer 1 drop into affected eye(s) every 12 (twelve) hours. Active loperamide (Imodium) 2 MG capsule take 2 capsule by oral route after 1st loose stool, followed by 1 capsule after each subsequent loose stool not to exceed 8mg per day Active melatonin tablet One tab once a bedtime Active trimethoprim-p olymyxin b (Polytrim) ophthalmic solution Administer 1 drop into affected eye(s) every 6 (six) hours. 022 Active albuterol (Ventolin HFA) 108 (90 Base) MCG/ACT inhalerIndicat ions:Wheeze TAKE 2 PUFFS BY MOUTH EVERY 4 TO 6 HOURS IF NEEDED 18 g 1 023 Active doxycycline (Vibra-Tabs) 100 MG tablet Take 100 mg by mouth 2 times daily. 023 Active omeprazole OTC (PriLOSEC OTC) 20 MG EC tablet Take 1 tablet (20 mg) by mouth before breakfast. Do not crush, chew, or split. 30 tablet 11 023 Active Mometasone Furoate (Asmanex HFA) 100 MCG/ACT aerosolIndicat ions:Cough, unspecified type,Wheezing INHALE 1 PUFF BY MOUTH TWICE A DAY. RINSE MOUTH WITH WATER AFTER USE TO REDUCE AFTERTASTE AND INCIDENCE OF CANDIDIASIS. DO NOT SWALLOW. 13 g 2 024 Active fluticasone furoate (Arnuity Ellipta) 100 MCG/ACT inhaler Inhale 1 puff in the morning. Rinse mouth with water after use to reduce aftertaste and incidence of candidiasis. Do not swallow. 1 each 5 024 2024 Active levothyroxine (Synthroid, Levoxyl) 50 MCG tablet TAKE 1 TABLET (50 MCG) BY MOUTH BEFORE BREAKFAST 90 tablet 3 024 2024 Active loratadine (Claritin) 10 MG tablet TAKE 1 TABLET BY MOUTH EVERY DAY 90 tablet 1 024 Active mometasone (Elocon) 0.1 % ointment Apply topically Once per day. 45 g 2 024 2024 Active ibuprofen 800 MG tablet TAKE 1 TABLET BY MOUTH 3 TIMES A DAY WITH FOOD 90 tablet 3 Active docusate sodium (Colace) 100 MG capsule Take 1 capsule (100 mg) by mouth 2 times daily. 180 capsule 1 Active Multiple Vitamin (multivitamin) capsuleIndicat ions:Tiredness Take 1 capsule by mouth Once per day. 30 capsule 11 024 2024 Active cholecalcifero l (Vitamin D-3) 25 MCG (1000 UT) capsuleIndicat ions:Vitamin D deficiency Take 1 capsule (25 mcg) by mouth Once per day. 30 capsule 11 024 2024 Active polyethylene glycol, PEG, 3350 (Miralax) 17 g packet DISSOLVE 17 GRAMS IN 8 OZ OF FLUID LIQUID DRINK DAILY DIRECTED 100 packet 2 Active PHENobarbital- hyoscyamine-at ropine-scopolo amine () 16.2 MG tablet Take 1 tablet by mouth 3 times daily. 21 tablet Active cyanocobalamin (Vitamin B-12) 1000 MCG/ML injectionIndic ations:Vitamin B 12 deficiency INJECT 1 ML INTRAMUSCULARLY EVERY MONTH 3 mL 3 025 Active PARoxetine (Paxil) 10 MG tabletIndicati ons:Anxiety TAKE 1 TABLET BY MOUTH EVERY DAY 90 tablet 3 025 Active cyanocobalamin (Vitamin B-12) 1000 MCG/ML injectionIndic ations:Vitamin B 12 deficiency INJECT 1 ML INTRAMUSCULARLY EVERY MONTH 3 mL 11 023 2024 Discontinued PARoxetine (Paxil) 10 MG tabletIndicati ons:Anxiety TAKE 1 TABLET BY MOUTH EVERY DAY 90 tablet 3 024 2024 Discontinued(R eorder (will not trigger notification to Pharmacy)) Hospital, Clinic, or Other Facility Administered Medication [...] 05/25/2023 Personal history of nicotine dependence 05/25/19 Umbilical hernia 05/25/2023 Hypothyroidism 05/25/2023 Irritable bowel [...] eye 01/07/2018 10/12/2022 Vaginal pessary in situ 07/21/2016 06/0 03/2022 Midline cystocele 01/27/2016 07/14/2022 Overview (07/14/2022): Last [...] Encounters Date Type Department Care Team Description 04/12/2024 Refill [facility] [address] [place] [address] Name, MD Krzysztof Anxiety 04/12/2024 Refill [facility] [place] [address] Odilia Niño FNP Vitamin B 12 deficiency; Anxiety 04/04/2024 11:00 AM EST Clinical Support [address] [place] [address] Chitra Madrid, SAMRA Vitamin B 12 deficiency 04/03/2024 Travel 03/13/2024 Orders Only GENERIC EXTERNAL DATA DEPARTMENT Provider, Generic External Data 02/20/2024 9:30 AM EST Clinical Support [address] [address] Chitra Madrid, SAMRA Vitamin B 12 deficiency 02/19/2024 Travel 02/14/[address] [address] Carolina Chopra [place] jan recalls 01/29/2024 Orders Only [facility] External Provider, [facility] 01/25/2024 1:15 PM EST Office Visit [address] [address] Chepe Moreno MD Xanthoma (Primary Dx) 01/25/2024 Travel 01/22/2024 9:30 AM EST Clinical Support [address] [address] Chitra Madrid, SAMRA Vitamin B 12 deficiency 01/22/[address] [address] Chitra Madrid, SAMRA 01/22/2024 Travel 01/18/2024 Travel from Last 3 Months Immunizations Name [...] Description 04/25/2024 10:00 AM EDT Office Visit [facility] [address] [place] [address] Name, MD Krzysztof [address] [place] [address] 05/05/2024 1:00 PM EDT Clinical Support [address] [address] Health Maintenance Due Date Last Done Comments [...] Stimulating Hormone 2.26 0.32 - 4.0 uIU/mL [facility] Comment:TSH 3rd Generation ( [facility]) 03/13/2024 9:37 AM EST 03/13/2024 9:37 AM EST Generic External Data Provider LAB BLOOD ORDERAB LES Final Result Performing Organization Address City/[facility]/ZIP Co de Phone Number [facility] [address] [place] [phone] * T4, Free (03/13/2024 9:37 AM EST) Free T4 (Free Thyroxine) 1.16 0.71 - 1.85 ng/dL [facility] 03/13/2024 9:37 AM EST 03/13/2024 9:37 AM EST Generic External Data Provider LAB BLOOD ORDERAB LES Final Result Performing Organization Address City/[facility] Co de Phone Number [facility] [address] [place] [phone] * US Thyroid (02/04/2024 8:00 AM EST) Anatomical Region Laterality Modality Head, Neck Ultrasound 02/04/2024 8:00 AM EST Narrative 03/13/2024 11:38 AM EST ? [facility] ?[address] ?[place] [address] ? Ultrasound Report ? Signed ? Patient: Robert,Tenisha V ?MR#: [id number] ?? 14 ? : 1960 ?Acct:[id number] ? Age/Sex: 63 / F ?ADM Date: 02/04/24 ? Loc: HO.US ? Attending Dr: Carla Prieto MD ? Ordering Physician: Carla Prieto MD ?? Date of Service: 02/04/24 ?? Procedure(s): US thyroid ?? Accession Number(s): [id number] ? cc: Carla Prieto MD; Name,Krzysztof PERSON [...] signed by Stuart Cisneros MD in OV> ?03/13/245 ? DD/ 0800 ? TD/TT: 02/04/24 0806 ? Bail Bonding Agent: ? Procedure Note Donotuseinterpreter, Image - 03/13/2024 [place] [address] Ultrasound Report Signed Patient: Tenisha Jones VMR#: [id number] 14 : 1960Acct:[id number] Age/Sex: 63 / FADM Date: 02/04/24 Loc: HO.US Attending Dr: Carla Prieto MD Ordering Physician: Carla Prieto MD Date of Service: 02/04/24 Procedure(s): US thyroid Accession Number(s): [id number] cc: Carla Prieto MD; Name,Krzysztof PERSON EXAMINATION: [...] 03/13/24 1135 DD/ 0800 TD/TT: 02/04/24 0806 Bail Bonding Agent: [facility] External Provider IMG US PROCEDURES Final Result * CT Lung Screening Low dose (01/29/2024 8:09 AM EST) Anatomical Region Laterality Modality Lung Computed Tomogra phy 01/29/2024 8:09 AM EST Narrative 03/12/2024 8:51 AM EST ? [facility] ?[address] ?[place] [address] ? CT Scan Report ? Signed ? Patient: Robert,Tenisha V ?MR#: [id number] ?? 14 ? : 1960 ?Acct:[id number] ? Age/Sex: 63 / F ?ADM Date: 12/17/24 ? Loc: HO.CT ? Attending Dr: Richa Wing PA-C ? Ordering Physician: Richa Wing PA-C ?? Date of Service: 01/29/24 ?? Procedure(s): CT lung screening ?? Accession Number(s): [id number] ? cc: Richa Wing PA-C; Name,Krzysztof PERSON ? Report Number: ?? [id number]: Total DLP = ?? 73.00 mGy-cm ?? [...] Exam submitted for review 03/12/2024 7:48 AM ENGINEERING DOCUMENTATION SPECIALIST. ? FINDINGS: ? PULMONARY NODULES: ?? -A [...] for CT CHEST LOW DOSE CANCER SCREENING ([id number]) ?? can be placed. ? Electronically signed by: ??Joaquim Loyola MD ??03/12/2024 08:48 AM EST RP ? Dictated By: ?Joaquim Loyola MD ? Signed By: ?<Electronically signed by Joaquim Loyola MD in OV> ?03/12/24 0848 ? DD/ 0809 ? TD/TT: 01/29/24 0843 ? Bail Bonding Agent: ? Procedure Note Jerzy, Image - 03/12/[address] [address] [address] Scan Report Signed Patient: Tenisha Jones VMR#: [id number] 14 : 1960Acct:[id number] Age/Sex: 63 / FADM Date: 01/29/24 Loc: HO.CT Attending Dr: Richa Wing PA-C Ordering Physician: Richa Wing PA-C Date of Service: 01/29/24 Procedure(s): CT lung screening Accession Number(s): [id number] cc: Richa Wing PA-C; Name,Krzysztof PERSON Report Number: [id number]: Total DLP = 73.00 mGy-cm EXAMINATION: CT [...] Exam submitted for review 03/12/2024 7:48 AM ENGINEERING DOCUMENTATION SPECIALIST. FINDINGS: PULMONARY NODULES: -A few tiny calcified [...] for CT CHEST LOW DOSE CANCER SCREENING ([id number]) can be placed. Electronically signed by: Joaquim Loyola MD 03/12/2024 08:48 AM [facility] Dictated By: Joaquim Loyola MD Signed By: <Electronically signed by Joaquim Loyola MD in OV> 03/12/24 0848 DD/ 0809 TD/TT: 01/29/24 0843 Bail Bonding Agent: [facility] External Provider IM CT PROCEDURES Edited Result - Final * (ABNORMAL) Lipid Panel, Standard (06/29/2022 7:58 AM EDT) Cholesterol, Total 267(H) <200 mg/dL [facility] [employer] [employer] HDL Cholesterol 52 > OR = 50 mg/dL [facility] [employer] Triglycerides 151(H) <150 mg/dL [facility] [employer] [employer] LDL Cholesterol 185(H) mg/dL (calc) [facility] [employer] [employer] Comment: Reference range: <100 Desirable range <100 mg/dL for primary prevention; ?? <70 mg/dL for patients with CHD or diabetic patients with > or = 2 CHD risk factors. LDL-C is now calculated using the Leora calculation, which is a validated novel method providing better accuracy than the Friedewald equation in the estimation of LDL-C. Ankur SS et al. JOSE ALEJANDRO. 2013;310(19): 6834-0979 (http://education.Viadeo/faq/YOI275) Chol/HDLC Ratio 5.1(H) <5.0 (calc) [facility] [employer] Non-HDL Cholesterol 215(H) <130 mg/dL (calc) [facility] [employer] [employer] Comment: For patients with diabetes plus 1 major ASCVD risk factor, treating to a non-HDL-C goal of <100 mg/dL (LDL-C of <70 mg/dL) is considered a therapeutic option. Blood Venous blood specimen / Unknown 06/29/2022 7:58 AM EDT 06/29/2022 7:58 AM EDT Narrative [facility] - 06/29/2022 10:32 PM EDT FASTING:YES FASTING: YES Krzysztof Martell MD LAB BLOOD ORDERABLES Final Resul t [facility] [address], [place] [address] [facility] [employer] [address] [place] [address] * Pap Smear (05/09/2022 12:00 AM EDT) Historical Provider HEALTH MAINTENANCE Final Result * Colonoscopy (08/24/2016) Colonoscopy performed Historical Provider HEALTH MAINTENANCE Final Result from Last 3 Months or Most Recently Relevant to Health Maintenance Insurance [place] [phone] [facility] STAND[facility] Care Teams Laminating Machine Offbearer Relationship Specialty Start Date End Date Name, MD Krzysztof [address] [place] [address] VIRI Owen [address] PCP - General Family Medicine 02/12/18
--- OUTSIDE RECORDS SUMMARY | 2024-04-14 15:09 | XMS_ITS | Encounter Summary ---
Author Organization [facility] Address [address] [place] [address] Care Team Providers Care Spray Gun Repairer Helper Name Role Phone NameKrzysztof MD Primary Care Provider Unavailabl e NameKrzysztof MD Primary Care Provider Unavailabl e Reason for Visit * Reason Onset Date Comments Provider Call Back 02/19/2012 Encounter Details Date Type Department Care Team Description 02/19/2012 Telephone Adult Medicine [address] [address] Name, MD Krzysztof Provider Call Back Social History Tobacco Use [...] encounter Miscellaneous Notes * Telephone Encounter - Kala Altamirano - 03/04/2012 11:32 AM EST Patient [employer] Disability form was already completed, pateint states that she needs a follow up withDr Name after 03/06/11 with her appointment with Dr. Darío Tello. * Telephone Encounter - Kaia Pedroza L.P.N. - 02/19/2012 3:47 PM EST Needs appt to discuss forms with pcp. * Telephone Encounter - Kala Altamirano - 02/19/2012 2:15 PM EST Caller requesting call back from provider:Krzysztof Martell MD Is the caller the patient? YES If caller is not the patient, what is the callers name? N/A Callers relationship to patient? N/A If person calling is not the patient themselves, is there a verbal release in FYI or permanent comments for this person: YES Reason for call back: Patient would like a call back from Krzysztof Martell MD, she would like to discussher disability forms with him, patient is also requesting that we contact Dr Ruth office to request office notes there number is [phone] fax number is [phone] Caller offered to speak with the nurse for assistance: YES Response: Patient unwilling to offer reason for requesting provider to call them documented in this encounter Plan of Treatment Not on file documented as of this encounter Visit Diagnoses Not on filedocumented in this encounter Care Teams Spray Gun Repairer Helper Relationship Specialty Start Date End Date Krzysztof Martell MD PCP - General Internal Medicine 12/22/10 04/05/15 Krzysztof Martell MD PCP - General Internal Medicine 04/06/15 documented as of this encounter
--- OUTSIDE RECORDS SUMMARY | 2024-04-14 15:09 | XMS_ITS | Encounter Summary ---
Author Organization [facility] Address [address] [place] [address] Care Team Providers Care Arson And Bomb Investigator Name Role Phone Name, Krzysztof PERSON Primary Care Provider Unavailabl e Encounter Details Date Type Department Care Team Description 05/18/2022 Orders Only Medical Records [address] [place] [address] Nikole Arzola MD [facility] [place], [place] [phone] Social History Tobacco Use Types Packs/Day Years [...] Recorded In the last 10 days, have ariel ratliff been in contact with someone who was confirmed or suspected to have Coronavirus/COVID-19? No / Unsure 05/18/2022 2:10 PM EDT documented as of this encounter Plan of Treatment Not on file documented as of this encounter Procedures Procedure Name Priority Date/Time Associated Diagnosis Comments OUTSIDE PATHOLOGY Routine 05/15/2022 documented in this encounter Results * OUTSIDE PATHOLOGY (05/15/2022) Nikole Arzola MD OUTSIDE LAB documented in this encounter Visit Diagnoses Not on filedocumented in this encounter Care Teams Arson And Bomb Investigator Relationship Specialty Start Date End Date Name, MD Krzysztof PCP - General Internal Medicine 04/06/15 documented as of this encounter
--- OUTSIDE RECORDS SUMMARY | 2024-04-14 15:09 | XMS_ITS | Encounter Summary ---
Author Organization [facility] Address [address] [place] [address] Care Team Providers Care Travel Pta Name Role Phone Krzysztof Martell MD Primary Care Provider Unavailabl e NameKrzysztof MD Primary Care Provider Unavailabl e Reason for Visit * Reason Onset Date Comments Call-returning From Provider 07/04/2011 Encounter Details Date Type Department Care Team Description 07/04/2011 Telephone Adult [address] [address] Name, MD Krzysztof Call-returning From Provider Social History Tobacco Use Types Packs/Day Years Used Date Smoking Tobacco: Former Cigarettes 0.5 Q uit: 06/17/2011 Smokeless Tobacco: Never Comments:She has been advise [...] encounter Miscellaneous Notes * Telephone Encounter - Lisa Hinojosa - 07/04/2011 3:09 PM EDT [employer] 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
--- OUTSIDE RECORDS SUMMARY | 2024-04-14 15:09 | XMS_ITS | Encounter Summary ---
Author Organization [employer] Address [address] [place] [address] [address] [place] [address] Care Team Providers Care Toys And Games Hand Finisher Name Role Phone Name, Krzysztof PERSON Primary Care Provider [phone] Encounter Details Date Type Department Care Team (Late st Contact Info) Description 07/01/2022 Orders Only [facility] MED & PEDS [address] [place], [place] [phone] Nils Meza MD [address] [place], [place] [phone] Social History Tobacco Use Types Packs/Day Years [...] Description 04/25/2024 10:00 AM EDT Office Visit [facility]ICINE [address] [place] [phone] Name, MD Krzysztof [address] [place] [phone] 05/05/2024 1:00 PM EDT Clinical Support [address] [address] documented as of this encounter Visit Diagnoses Not on filedocumented in this encounter Care Teams Toys And Games Hand Finisher Relationship Specialty Start Date End Date Name, MD Krzysztof [address] [place] [address] PCP - General Family Medicine 02/12/18 documented as of this encounter
--- OUTSIDE RECORDS SUMMARY | 2024-04-14 15:09 | XMS_ITS | Encounter Summary ---
Author Organization [facility] Address [address] [place] [address] Care Team Providers Care Quality Control Representative Name Role Phone Name, Krzysztof PERSON Primary Care Provider Unavailabl e Name, Krzysztof PERSON Primary Care Provider Unavailabl e Encounter Details Date Type Department Care Team Description 04/18/2012 Voice Network Engineer Report Medical Records [address] [place] [address] Neela Rich [address] [place] [address] Social History Tobacco Use Types Packs/Day Years [...] on file documented as of this encounter Plan of Treatment Not on file documented as of this encounter Visit Diagnoses Not on filedocumented in this encounter Care Teams Quality Control Representative Relationship Specialty Start Date End Date Krzysztof Martell MD PCP - General Internal Medicine 12/22/10 04/05/15 Krzysztof Martell MD PCP - General Internal Medicine 04/06/15 documented as of this encounter
--- OUTSIDE RECORDS SUMMARY | 2024-04-14 15:09 | XMS_ITS | Clinical Summary ---
Author Organization [facility] [address] [place] [address] [place] [phone] Phone Care Team Providers Care Crankshaft Straightener Name Role Phone Name, Krzysztof PERSON Primary Care Provider [phone] Allergies Active Allergy Reactions Criticality Noted Date [...] Other Reaction(s): icthing Other reaction(s): Itching Medications PARoxetine (PAXIL) 10 mg tablet Take 1 [...] buttocks every 30 (thirty) days. 02/09/2023 Active HYDROcodone-li taminophen (VICODIN) 5-300 mg per tablet Take 1 tablet by mouth. 05/16/2022 Active docusate sodium (COLACE) 100 mg capsule Take 1 capsule (100 mg total) by mouth 2 (two) times a day. Active polyethylene glycol (MIRALAX) 17 gram packet Take 17 g by mouth 1 (one) time each day. 05/15/2022 Active PHENobarbital-h yoscyamine-atro pine-scopoloami ne () 16.2-0.1037 -0.0194 mg per tablet Take 1 tablet by mouth. Active Encounters Date Type Department Care Team Description 03/06/2024 1:00 PM EST Office Visit Urogynecology - [address] [phone] Angelica Gunderson NP Pyuria (Primary Dx); Cystocele with rectocele 02/09/2024 8:30 AM EST - 02/09/2024 11:59 PM EST Hospital Encounter Radiology Department - [address] [phone] Encounter for screening mammogram for breast cancer [...] Mother a t the age of 66.goiter, MIXING OPERATOR cancer ? Breast cancer Neg Hx Colon [...] drink = 0.6 oz pur e alcohol) Comments No Sex and Gender Information Value Date Recorded Sex Assigned at Not on file Legal Sex Female 2:35 PM EST Gender Identity Not on file Sexual Orientation Not on file Obstetrics History Para Term [...] Due Date Last Done Comments Pneumococcal Vaccine: 50+ Years (1 of 2 - PCV) 1981 Pneumococcal Vaccine: Pediatrics (0 to 5 Years) and At-Risk Patients (6 to 64 Years) (1 of 2 - PCV) 1981 Cervical Cancer Screening: HPV 12/21/1983 Zoster Vaccines [...] patient's age to complete this topic Meningococcal B Vacine Aged Out No lo nger eligible based on patient's age to complete [...] mixed bacterial nimco 03/08/2024 10:45 AM EST [facility] Urine Urinary bladder structure / Unknown Non-blood Collection / Unknown 03/06/2024 1:58 PM EST 03/06/2024 1:58 PM EST us Angelica Gunderson NP LAB MICROBIOLOGY - GENERAL ORDERABLES Final Result [facility] [address] [place] [address], * MG Mammo Digital Screening w Deven bilat (02/09/2024 8:44 AM EST) Anatomical Region Laterality Modality Breast Bilateral Mammography 02/11/2024 7:32 PM EST Impressions 02/11/2024 7:33 PM EST No mammographic evidence of malignancy. BREAST DENSITY: B - There are scattered areas of fibroglandular density. BI-RADS CATEGORY: 1 - NEGATIVE RECOMMENDATION: Screening bilateral mammogram is recommended in 1 year. MAMMO LOCATION: [place], [address] [place] [address], [id number], . -------- FINAL REPORT -------- Dictated By: Ashli Tirado Dictated Date: 02/11/2024 19:32 ET Assigned Physician: Ashli Tirado Reviewed and Electronically Signed By: Ashli Tirado Signed Date: 02/11/2024 19:33 ET Workstation ID: [id number] Transcribed By: Self Edit Transcribed Date: 02/11/2024 [...] is recommended in 1 year. MAMMO LOCATION: [facility], [address] [place] [address], [id number], . -------- FINAL REPORT -------- Dictated By: Ashli Tirado Dictated Date: 02/11/2024 19:32 ET Assigned Physician: Ashli Tirado Reviewed and Electronically Signed By: Ashli Tirado Signed Date: 02/11/2024 19:33 ET Workstation ID: [id number] Transcribed By: Self Edit Transcribed Date: 02/11/2024 19:32 ET Krzysztof Martell MD IMG BI PROCEDURES Final Result from Last 3 Months Insurance MEDICAID - [place] MEDICARE Care Teams Crankshaft Straightener Relationship Specialty Start Date End Date Name, MD Krzysztof [address] [facility] [place] PCP - General Internal Medicine 12/22/10
--- OUTSIDE RECORDS SUMMARY | 2024-04-14 15:09 | XMS_ITS | Encounter Summary ---
Author Organization [facility] Address [address] [place] [address] Care Team Providers Care Designer And Patternmaker Name Role Phone Name, Krzysztof PERSON Primary Care Provider Unavailabl e Name, Krzysztof PERSON Primary Care Provider Unavailabl e Reason for Visit * Reason Onset Date Comments refill request 01/13/2014 Encounter Details Date Type Department Care Team Description 01/13/2014 Refill Adult Medicine [address] [address] Name, MD Krzysztof refill request Social History Tobacco Use Types Packs/Day Years [...] encounter Miscellaneous Notes * Telephone Encounter - Keeley Vuong M.A. - 01/13/2014 3:59 PM EST medication is not due til 01/19/14 I left a message for the patient to return my call. * Telephone Encounter - Trinidad Buckner - 01/13/2014 12:33 PM EST Patient would like script to be: PLACED IN PATIENT TRESTLEMAN WHEN WAS THE PATIENT'S LAST APPOINTMENT IN ADULT MEDICINE? 11/18/2013 WHEN WAS THE LAST TIME THE PATIENT SAW THEIR PCP? 11/18/2013 Does patient have an upcoming appointment? Yes 04/22/2014 (THE MEDICATION REQUESTED IS ON THE MED LIST ABOVE) All of the medications requested were on the CURRENT MEDS list Did you check the Pharmacy information above?: YES Patient wants: 30 -day supply Is this a mail order prescription request ? NO Patients current insurance carrier is: [place] / [place] / Product Type: [place]ID [id number] documented in this encounter Plan of Treatment Not on file documented as of this encounter Visit Diagnoses Diagnosis Chronic pain Other chronic pain Neuropathic pain Neuralgia, neuritis, and radiculitis, unspecified documented in this encounter Care Teams Designer And Patternmaker Relationship Specialty Start Date End Date Krzysztof Martell MD PCP - General Internal Medicine 12/22/10 04/05/15 Krzysztof Martell MD PCP - General Internal Medicine 04/06/15 documented as of this encounter
--- OUTSIDE RECORDS SUMMARY | 2024-04-14 15:09 | XMS_ITS | Encounter Summary ---
Author Organization [facility] Address [address] [place] [address] Care Team Providers Care Care Consultant Name Role Phone Name, Krzysztof PERSON Primary Care Provider Unavailabl e Reason for Visit * Reason Onset Date Comments Pre-op Needed 04/06/2022 Encounter Details Date Type Department Care Team Description 04/06/2022 Telephone Urogy[address] [address] Nikole Arzola MD [address] [place] [address] [place] [address] Pre-op Needed Social History Tobacco Use Types Packs/Day Years [...] encounter Miscellaneous Notes * Telephone Encounter - Shara Pham - 04/06/2022 2:05 PM EST Patient is suppose to have surgery with DR Arzola on 05/15 but states her pcp never received a request to do a pre-op for her prior to the surgery. She sees Dr Martell at [facility]. She has an appointment already with Dr Martell on 05/03/22 but they will need the pre-op paperwork. Please let pt know. documented in this encounter Plan of Treatment Not on file documented as of this encounter Visit Diagnoses Not on filedocumented in this encounter Care Teams Care Consultant Relationship Specialty Start Date End Date Name, MD Krzysztof PCP - General Internal Medicine 04/06/15 documented as of this encounter
--- OUTSIDE RECORDS SUMMARY | 2024-04-14 15:10 | XMS_ITS | Encounter Summary ---
Author Organization [employer] Address [address] [facility] 7t [place] [address] Care Team Providers Care Patient Care Director Name Role Phone Name, Krzysztof PERSON Primary Care Provider [phone] Reason for Visit * Reason Comments B12 Injection Encounter Details Date Type Department Care Team (Latest Contact Info) Description 04/04/2024 11:00 AM EST Clinical Support [facility] MEDICINE [address] [place], [place] [phone] Chitra Madrid RN [address] [place], [place] [phone] Vitamin B 12 deficiency Social History Tobacco [...] Progress Notes * Chitra Madrid RN - 04/04/2024 11:00 AM EST S: Pt here for nurse visit for Vitamin B-12 Injection. Pt states that she has not been feeling wellsince last B-12 injection. Pt reports that she had a stomach virus. Pt states she has been having aheadache in her forehead over her right eye and her ear is bothering her. Pt states she has not been evaluated and will not go to the ED. O: Cyanocobalamin deficiency. Standing order verified. A: Pt tolerated IM injection to right deltoid well. No adverse reaction noted. P: Pt advised of upcoming nurse visit for Vitamin B-12 Injection and given appointment reminder card. Pt verbalized understanding and states agreement with plan. Pt encouraged to seek WIC evaluation for reported symptoms. Pt advised of WIC availability. documented in this encounter Plan of Treatment Upcoming Encounters Date Type Department Care Team (Late st Contact Info) Description 04/25/2024 10:00 AM EDT Office Visit [facility] [address] [place] [address] Name, MD Krzysztof [address] [place] [address] 05/05/2024 1:00 PM EDT Clinical Support [address] [address] documented as of this encounter Visit Diagnoses Diagnosis Vitamin B 12 deficiency Other B-complex deficiencies documented in this encounter Administered Medications Active Administered Medications - up to 3 most recent administrations Medication Order MAR Action Action Date Dose Rate Site cyanocobalamin (Vitamin B-12) injection 1,000 mcg 1,000 mcg, Intramuscular, Every 30 days, First dose on Sun08/22/23 at 0900Indications:Vitamin B 12 deficiency Given 04/04/2024 11:15 AM EST 1,000 mcg Right Deltoid Given 02/20/2024 9:38 AM EST 1,000 mcg Ri ght Deltoid Given 01/22/2024 9:43 AM EST 1,000 mcg Le ft Deltoid documented in this encounter Additional Health Concerns Assessment Noted Time PHQ-9 Depression Total Score: 0 05/29/19 9:06 AM EDT documented as of this encounter Care Teams Patient Care Director Relationship Specialty Start Date End Date Name, MD Krzysztof [address] [place] [address] PCP - General Family Medicine 02/12/18 documented as of this encounter
--- OUTSIDE RECORDS SUMMARY | 2024-04-14 15:10 | XMS_ITS | Encounter Summary ---
Author Organization [facility] Address [address] [place] [address] Care Team Providers Care Home Energy Consultant Supervisor Name Role Phone Name, Krzysztof PERSON Primary Care Provider Unavailabl e Name, Krzysztof PERSON Primary Care Provider Unavailabl e Reason for Visit * Reason Comments E-prescribe Rx Request Encounter Details Date Type Department Care Team Description 05/05/2013 Refill Adult Medicine [address] [address] Lashonda Corbett NP E-prescribe Rx Request Social History Tobacco Use Types Packs/Day Years [...] Telephone Encounter - Mikaela Sandoval R.N. - 05/07/2013 11:55 AM EDT Pt to see dr arellano today at 1:45 * Telephone Encounter - Keeley Vuong M.A. - 05/07/2013 8:03 AM EDT Pt canceled appt with dr arellano for today but is still booked with lashonda for 05/08/13 which needs to be canceled if contract will be issued it has to come from pcp * Telephone Encounter - Mikaela Sandoval R.N. - 05/06/2013 3:43 PM EDT Pt has continued elbow pain and anticipates she will need contused pain meds, she will need to see dr arellano, booked for tomorrow at 1:[address] arellano I left a message for the patient to return my call. She needs to be made aware of this appointment,she cannot see lashonda for med contract and this is the next available appointment with dr arellano untilthe may * Telephone Encounter - Keeley Vuong M.A. - 05/06/2013 2:31 PM EDT Pt need to be seen by md * Telephone Encounter - Maria Isabel Arora - 05/06/2013 1:51 PM EDT Scheduled appointment for patient to be seen with Lashonda 05/08/13 at 8:45AM * Telephone Encounter - Keeley Vuong M.A. - 05/06/2013 7:42 AM EDT Pt will need to be seen no contract on file last seen in adult med 11/2012 * Telephone Encounter - Brandi Null - 05/05/2013 4:01 PM EDT Patient would like script to be: E-PRESCRIBED/FAXED TO PHARMACY WHEN WAS THE PATIENT'S LAST APPOINTMENT IN ADULT MEDICINE? 12/11/2012 WHEN WAS THE LAST TIME THE PATIENT SAW THEIR PCP? 07/29/2012 Does patient have an upcoming appointment? [facility]ill request. Appt due (THE MEDICATION REQUESTED IS ON THE MED LIST ABOVE) All of the medications requested were on the CURRENT MEDS list Did you check the Pharmacy information above?: YES Patient wants: 30 -day supply Is this a mail order prescription request ? NO Patients current insurance carrier is: Payor: [employer] Plan: [facility] TYPE II $10/$18 [id number] Product Type: HMO [id number] documented in this encounter Plan of Treatment Not on file documented as of this encounter Visit Diagnoses Not on filedocumented in this encounter Care Teams Home Energy Consultant Supervisor Relationship Specialty Start Date End Date Name, MD Krzysztof PCP - General Internal Medicine 12/22/10 04/05/15 Name, MD Krzysztof PCP - General Internal Medicine 04/06/15 documented as of this encounter
--- OUTSIDE RECORDS SUMMARY | 2024-04-14 15:10 | XMS_ITS | Encounter Summary ---
Author Organization [facility] Address [address] [place] [address] Care Team Providers Care Personnel Clerk Name Role Phone Name, Krzysztof PERSON Primary Care Provider Unavailabl e Name, Krzysztof PERSON Primary Care Provider Unavailabl e Encounter Details Date Type Department Care Team Description 01/01/2013 Night Triage Doc Medical Records [address] [place] [address] Abstract, Provider Social History Tobacco Use Types [...] on filedocumented in this encounter Care Teams Personnel Clerk Relationship Specialty Start Date End Date Krzysztof Martlel MD PCP - General Internal Medicine 12/22/10 04/05/15 Krzysztof Martell MD PCP - General Internal Medicine 04/06/15 documented as of this encounter
--- OUTSIDE RECORDS SUMMARY | 2024-04-14 15:10 | XMS_ITS | Encounter Summary ---
Author Organization [employer] Address [address] [facility] 7t [place] [address] Care Team Providers Care Intel Analyst Name Role Phone Name, Krzysztof PERSON Primary Care Provider [phone] Reason for Visit * Reason Comments Med Refill Encounter Details Date Type Department Care Team ([facility] st Contact Info) Description 04/12/2024 Refill [facility] MEDICINE [address] [place], [place] [phone] Odilia Niño FNP [address] [place], [place] [phone] Vitamin B 12 deficiency; Anxiety Social History Tobacco Use Types Packs/Day Years [...] Description 04/25/2024 10:00 AM EDT Office Visit [address] [address] Name, MD Krzysztof [address] [place] [address] 05/05/2024 1:00 PM EDT Clinical Support [address] [address] documented as of this encounter Visit Diagnoses Diagnosis Vitamin B 12 deficiency Other B-complex deficiencies Anxiety Anxiety state, unspecified documented in this encounter Additional Health Concerns Assessment Noted Time PHQ-9 Depression Total Score: 0 05/29/19 24 9:06 AM EDT documented as of this encounter Care Teams Intel Analyst Relationship Specialty Start Date End Date Name, MD Krzysztof [address] [place] [address] PCP - General Family Medicine 02/12/18 documented as of this encounter
--- OUTSIDE RECORDS SUMMARY | 2024-04-14 15:10 | XMS_ITS | Encounter Summary ---
Author Organization [employer] Includes [facility] [employer] Address [address] [place] [address] 7[address] [place] [address] Care Team Providers Care Electrophysiology Technician Name Role Phone Name, Krzysztof PERSON Primary Care Provider Encounter Details Date Type Department Care Team (Late Contact Info) Description 01/18/2022 Abstract [facility] MEDICINE [address] [place] [address] [phone] Name, MD Krzysztof [address] [place] [phone] Social History Tobacco Use Types Packs/Day Years [...] Description 04/25/2024 10:00 AM EDT Office Visit [facility] MEDICINE [address] [place] [phone] Name, MD Krzysztof [address] [place] [phone] 05/05/2024 1:00 PM EDT Clinical Support [facility] MEDICINE [address] [place] [address] documented as of this encounter Visit Diagnoses Not on filedocumented in this encounter Care Teams Electrophysiology Technician Relationship Specialty Start Date End Date Name, MD Krzysztof [address] [place] [address] PCP - General Family Medicine 02/12/18 documented as of this encounter
--- OUTSIDE RECORDS SUMMARY | 2024-04-14 15:10 | XMS_ITS | Encounter Summary ---
Demographics Address [address] [place] [address] Mobile Phone Home Phone Email Address Preferred Language en Marital Status Legally Scientologist Affiliation Unknown Race White Ethnic Group Not or Lati no Author Organization [employer] Address [address] [facility] [address] 7t [place] [address] Care Team Providers Care Net Solutions Architect Name Role Phone Name, Krzysztof PERSON Primary Care Provider Encounter Details Date Type Department Care Team (Latest Contact Info) Description 04/03/2024 Travel Social History Tobacco Use Types Packs/Day [...] Description 04/25/2024 10:00 AM EDT Office Visit [facility] MEDICINE [address] [place] [address] Name, MD Krzysztof [address] [place] [address] 05/05/2024 1:00 PM EDT Clinical Support [address] [address] documented as of this encounter Visit Diagnoses Not on filedocumented in this encounter Additional Health Concerns Assessment Noted Time PHQ-9 Depression Total Score: 0 05/29/19 24 9:06 AM EDT documented as of this encounter Care Teams Net Solutions Architect Relationship Specialty Start Date End Date NameKrzysztof MD [address] [place] [address] PCP - General Family Medicine 02/12/18 documented as of this encounter
--- OUTSIDE RECORDS SUMMARY | 2024-04-14 15:10 | XMS_ITS | Encounter Summary ---
Author Organization [facility] Address [address] [place] [address] Care Team Providers Care Parts Analyst Name Role Phone Name, Krzysztof PERSON Primary Care Provider Unavailabl e Encounter Details Date Type Department Care Team Description 05/03/2017 Release of Information Medical Records [address] [place] [address] Abstract, Provider Social History Tobacco Use Types [...] on filedocumented in this encounter Care Teams Parts Analyst Relationship Specialty Start Date End Date Name, MD Krzysztof PCP - General Internal Medicine 04/06/15 documented as of this encounter
--- OUTSIDE RECORDS SUMMARY | 2024-04-14 15:10 | XMS_ITS | Encounter Summary ---
Author Organization [facility] Address [address] [place] [address] Care Team Providers Care Drug Abuse Counselor Name Role Phone Name, Krzysztof PERSON Primary Care Provider Unavailabl e Reason for Visit * Reason Onset Date Comments Medication 04/19/2023 Encounter Details Date Type Department Care Team Description 04/19/2023 Telephone OBGYN - [facility] [address] [place] [address] Marian Tong MD [address] [place] [phone] Medication Social History Tobacco Use Types Packs/Day Years [...] encounter Miscellaneous Notes * Telephone Encounter - Slime Weber R.N. - 04/19/2023 1:53 PM EST Spoke with patient. Pt states she is feeling better, no redness or discomfort. Using topical medication since 04/17/23. Advised to continue BID until 04/23/23. Pt understands. * Telephone Encounter - Blanquita Verduzco - 04/19/2023 12:23 PM EST Chief Complaint/problem: Patient came in and got medication for yeast infection, nystatin and she is wondering how long she should take it for. How long has the patient had this problem? 4 days Pt???s AERONAUTICAL INSPECTOR provider: Marian Tong MD Last menstrual period (LMP) or EDC (due date): N/A documented in this encounter Plan of Treatment Not on file documented as of this encounter Visit Diagnoses Not on filedocumented in this encounter Care Teams Drug Abuse Counselor Relationship Specialty Start Date End Date Name, MD Krzysztof PCP - General Internal Medicine 04/06/15 documented as of this encounter
--- OUTSIDE RECORDS SUMMARY | 2024-04-14 15:10 | XMS_ITS | Encounter Summary ---
Author Organization [facility] Address [address] [place] [address] Care Team Providers Care Technical System Analyst Name Role Phone Arvind Berry MD Primary Care Provider [phone] Krzysztof Martell MD Primary Care Provider Unavailabl e Name, Krzysztof PERSON Primary Care Provider Unavailabl e Encounter Details Date Type Department Care Team Description 05/02/2010 Night Triage Doc Medical Records [address] [place] [address] Abstract, Provider Social History Tobacco Use Types Packs/Day Years Used Date Smoking Tobacco: Every Day Cigarettes 0.5 Comments:She has been advise d she should stop smoking. Alcohol Use Standard Drinks/Week Comments Yes 0 [...] on filedocumented in this encounter Care Teams Technical System Analyst Relationship Specialty Start Date End Date Arvind Berry MD [address] [place] [address] PCP - General 08/14/00 12/21/10 Krzysztof Martell MD [address] [place] [address] PCP - General Internal Medicine 12/22/10 04/05/15 Krzysztof Martell MD [address] [place] [address] PCP - General Internal Medicine 04/06/15 documented as of this encounter
--- OUTSIDE RECORDS SUMMARY | 2024-04-14 15:10 | XMS_ITS | Encounter Summary ---
Demographics Address [address] [place] [address] Mobile Phone Home Phone Email Address Preferred Language en Marital Status Legally Restorationist Affiliation Unknown Race White Ethnic Group Not or Lati no Author Organization [employer] Address [address] [facility] 7t [place] [address] Care Team Providers Care Lathe Sander Name Role Phone Name, Krzysztof PERSON Primary Care Provider [phone] Reason for Visit * Reason Onset Date Comments PA Clarification 12/19/2022 Prior Authorization 12/19/2022 Phenobarbita l Encounter Details Date Type Department Care Team ([facility] st Contact Info) Description 12/19/2022 Telephone [facility] MEDICINE [address] [place], [place] [phone] Name, MD Krzysztof [address] [place], [place] [phone] PA Clarification ; Prior Authorization (Phenobarbital) Social [...] Miscellaneous Notes * Telephone Encounter - Geovanna Granado - 12/21/2022 1:27 PM EST TW returned call to [facility], a clarification of dosage was needed and was corrected with information on in chart. [facility] determined that a PA was not needed for this medication and that the Pharmacy was to call the Pharmacy Help Desk at [phone]. Pharmacy was called and informed. * Telephone Encounter - Mauro Figueroa - 12/19/2022 11:53 AM EST Tc from Cam with [facility] requesting a call from a nurse or provider in regards to a PA form that was received. ( Did specify which medication) Cam states that in order to approve some verification and clarification most be revised. Please contact Cam at [phone] documented in this encounter Plan of Treatment Upcoming Encounters Date Type Department Care Team (Late st Contact Info) Description 04/25/2024 10:00 AM EDT Office Visit [facility] MEDICINE [address] [place] [address] Name, MD Krzysztof [address] [place] [address] 05/05/2024 1:00 PM EDT Clinical Support [address] [address] documented as of this encounter Visit Diagnoses Not on filedocumented in this encounter Care Teams Lathe Sander Relationship Specialty Start Date End Date Name, MD [facility]ztof [address] [facility] [address] PCP - General Family Medicine 02/12/18 documented as of this encounter
--- OUTSIDE RECORDS SUMMARY | 2024-04-14 15:10 | XMS_ITS | Encounter Summary ---
Author Organization [facility] Address [address] [place] [address] Care Team Providers Care Proteomics Scientist Name Role Phone NameKrzysztof MD Primary Care Provider Unavailabl e NameKrzysztof MD Primary Care Provider Unavailabl e Reason for Visit * Reason Onset Date Comments Special Procedure 07/31/2013 colonoscopy Encounter Details Date Type Department Care Team Description 07/31/2013 Telephone Gastroenterology - [address] [address] Name, MD Krzysztof Special Procedure (colonoscopy) Social History Tobacco Use Types Packs/Day Years [...] encounter Miscellaneous Notes * Telephone Encounter - Krystin Jane - 07/31/2013 3:42 PM EDT After attempting to contact patient via 2 letter/ 1 call, patient has not contacted gastroenterology to reschedule colonoscopy. At this time, patient will be removed from referral. documented in this encounter Plan of Treatment Not on file documented as of this encounter Visit Diagnoses Not on filedocumented in this encounter Care Teams Proteomics Scientist Relationship Specialty Start Date End Date Krzysztof Martell MD PCP - General Internal Medicine 12/22/10 04/05/15 Name, MD Krzysztof PCP - General Internal Medicine 04/06/15 documented as of this encounter
--- OUTSIDE RECORDS SUMMARY | 2024-04-14 15:10 | XMS_ITS | Encounter Summary ---
Author Organization [facility] Address [address] [place] [address] Care Team Providers Care Applications Systems Analyst Name Role Phone Name, Krzysztof PERSON Primary Care Provider Unavailabl e Name, Krzysztof PERSON Primary Care Provider Unavailabl e Encounter Details Date Type Department Care Team Description 05/13/2013 Controlled Substance Contract with Plan Medical Records [address] [place] [id number] Abstract, Provider Social History Tobacco Use Types [...] on filedocumented in this encounter Care Teams Applications Systems Analyst Relationship Specialty Start Date End Date Krzysztof Martell MD PCP - General Internal Medicine 12/22/10 04/05/15 Krzysztof Martell MD PCP - General Internal Medicine 04/06/15 documented as of this encounter
--- OUTSIDE RECORDS SUMMARY | 2024-04-14 15:10 | XMS_ITS | Encounter Summary ---
Author Organization [employer] Address [address] [facility] 7t [place] [address] Care Team Providers Care Cnc Technician Name Role Phone Name, Krzysztof PERSON Primary Care Provider [phone] Reason for Visit * Reason Comments Med Refill Encounter Details Date Type Department Care Team ([facility] st Contact Info) Description 04/12/2024 Refill [facility] MEDICINE [address] [place], [place] [phone] Name, MD Krzysztof [address] [place], [place] [phone] Anxiety Social History Tobacco Use Types Packs/Day [...] Description 04/25/2024 10:00 AM EDT Office Visit [address] [address] Name, MD Krzysztof [address] [place] [address] 05/05/2024 1:00 PM EDT Clinical Support [address] [address] documented as of this encounter Visit Diagnoses Diagnosis Anxiety Anxiety state, unspecified documented in this encounter Additional Health Concerns Assessment Noted Time PHQ-9 Depression Total Score: 0 05/29/19 24 9:06 AM EDT documented as of this encounter Care Teams Cnc Technician Relationship Specialty Start Date End Date Name, MD Krzysztof [address] [place] [address] PCP - General Family Medicine 02/12/18 documented as of this encounter
--- OUTSIDE RECORDS SUMMARY | 2024-04-14 15:10 | XMS_ITS | Encounter Summary ---
Author Organization [employer] Address [address] [facility] 7t [place] [address] Care Team Providers Care Presser And Shaper Knitted Goods Name Role Phone Name, Krzysztof PERSON Primary Care Provider Encounter Details Date Type Department Care Team ([facility] Contact Info) Description 08/31/2022 Orders Only [facility] [address] [place] [address] [phone] NameKrzysztof MD [address] [place] [address] [phone] Subclinical hypothyroidism Social History Tobacco Use Types [...] Upcoming Encounters Date Type Department Care Team ([facility] Contact Info) Description 04/25/2024 10:00 AM EDT Office Visit [facility] [address] [place] [address] [phone] Name, [place] [id number] 05/05/2024 1:00 PM EDT Clinical Support [facility] [place] [place] [id number] documented as of this encounter Procedures Procedure Name Priority Date/Time Associated Diagnosis Comments TSH W/REFLEX TO FT4 Routine 08/31/2022 8:48 AM EDT Subclinical hypothyroidism documented in this encounter Results * (ABNORMAL) TSH W/Reflex to FT4 (08/31/2022 8:48 AM EDT) TSH reflex Free T4 4.39(H) 0.32 - 4.0 uIU/mL [facility] Blood 08/31/2022 8:48 AM EDT 08/31/2022 11:21 AM EDT Krzysztof Martell MD LAB BLOOD ORDERABLES Final Resul t [facility] [address] [place] [address] [phone] documented in this encounter Visit Diagnoses Diagnosis Subclinical hypothyroidism Other specified acquired hypothyroidism documented in this encounter Care Teams Presser And Shaper Knitted Goods Relationship Specialty Start Date End Date Name, [place] [id number] PCP - General Family Medicine 02/12/18 documented as of this encounter
--- OUTSIDE RECORDS SUMMARY | 2024-04-14 15:10 | XMS_ITS | Encounter Summary ---
Author Organization [facility] Address [address] [place] [address] Care Team Providers Care Eclectic Doctor Name Role Phone Name, Krzysztof PERSON Primary Care Provider Unavailabl e Name, Krzysztof PERSON Primary Care Provider Unavailabl e Encounter Details Date Type Department Care Team Description 01/01/2013 Night Triage Doc Medical Records [address] [place] [address] Abstract, Provider Social History Tobacco Use Types [...] on filedocumented in this encounter Care Teams Eclectic Doctor Relationship Specialty Start Date End Date Krzysztof Martell MD PCP - General Internal Medicine 12/22/10 04/05/15 Krzysztof Martell MD PCP - General Internal Medicine 04/06/15 documented as of this encounter
--- OUTSIDE RECORDS SUMMARY | 2024-04-14 15:10 | XMS_ITS | Clinical Summary ---
Author Organization [facility] Address [address] [place] [address] Care Team Providers Care Readiness Paraprofessional Name Role Phone Name, Krzysztof PERSON Primary Care Provider Unavailabl e Allergies Active Allergy Reactions Severity Noted Date Comments Atorvastatin 04/22/2014 Worsening leg pain Cefaclor 04/21/2005 Penicillins 04/21/2005 Oxycodone-Acetaminophen Hives/Urticaria, Gastr itis Low 04/29/2018 Acetaminophen-Codeine Nausea and Vomiting 07/31 Vancomycin 04/21/2005 Zoloft Gastritis Low 04/29/2018 Medications Medication Sig Dispensed Refills Start Date End Date Status ranitidine (ZANTAC) 300 MG tablet Take 300 mg by mouth 2 times daily. 0 Active cyanocobalamin 1000 MCG/ML injectionIndication s:Vitamin B 12 deficiency Inject 1 mL into the muscle every 30 days. 1 mL 5 01/12/2015 Active paroxetine (PAXIL) 10 MG tablet TAKE 1 TABLET BY MOUTH EVERY DAY IN THE MORNING 30 Tab 5 02/16/2015 Active hydrocodone-acetami nophen (NORCO) 7.5-325 MG per tabletIndications:C hronic pain,Neuropathic pain Take 1 tablet by mouth 2 times daily as needed for Pain. Times 2 weeks then 1 daily 42 tablet 0 03/12/2015 Active Probiotic Product (PROBIOTIC OR) Take by mouth daily. 0 Active Wheat Dextrin (BENEFIBER OR) Take by mouth every other day. 0 Active Sennosides (SENNA LAX OR) Take by mouth at bedtime. 0 Active Calcium Carbonate-Vitamin D (CALTRATE 600+D OR) Take by mouth. 0 A ctive levothyroxine (SYNTHROID, LEVOTHROID) 50 MCG tablet Take 50 mcg by mouth daily. 0 Active clotrimazole-betame thasone (LOTRISONE) cream APPLY TO AFFECTED AREA TWICE DAILY FOR 10 DAYS. 30 g 0 09/07/2018 Active estradiol (ESTRACE VAGINAL) 0.1 MG/GM vaginal creamIndications:BRITO I (stress urinary incontinence, female),Pessary maintenance Apply a pea-sized drop on fingertip and rub the external vaginal area every night for 3 weeks, then every other night for 2 weeks and then twice weekly from then on. 42.5 g 3 01/31/2019 Active vitamin B-12 (CYANOCOBALAMIN) 1000 MCG tablet Take 1,000 mcg by mouth daily. 0 05/02/2019 Active OXYQUINOLONE SULFATE VAGINAL (Trimo-Bonds) 0.025 % GelIndications:Pess dilma maintenance Place 1 Applicatorful vaginally every 28 days. 30 g 0 05/19/2021 Active clotrimazole-betame thasone (Lotrisone) cream Apply to area sparingly twice a day for up to two weeks 30 g 0 05/19/2021 Active dicyclomine (BENTYL) 20 MG tablet Take 1 Tablet by mouth every 6 hours. 0 Active HYDROcodone-Acetami nophen 5-300 MG TabIndications:Acut e postoperative pain Take 1 Tablet by mouth every 6 hours as needed for Pain for up to 3 days. 12 Tablet 0 05/16/2022 Active Elastic Bandages & Supports (Abdominal Binder/Elastic 2XL) MiscIndications:Pos toperative state 1 Units by Does not apply route daily. 1 Each 0 05/23/2022 Active Incontinence Supply Disposable (Disposable Brief X-Large) MiscIndications:Pos toperative state Wear 1 brief per day as needed for vaginal bleeding/discharge and compression. 15 Each 0 05/23/2022 Active miconazole (Desenex) 2 % powder Apply 1 g topically as needed for Itching for up to 10 days. 70 g 0 06/05/2022 Active polyethylene glycol (MiraLax) 17 g packet Take 1 Packet by mouth daily for 6 days. 6 Each 0 06/16/2022 Active Magnesium Hydroxide (DULCOLAX OR) Take by mouth. 0 Active ibuprofen (ADVIL,MOTRIN) 800 MG tablet Take 1 Tablet by mouth every 8 hours as needed. 0 Active nystatin (MYCOSTATIN) ointment Apply twice daily 30 g 0 04/16/2023 Active fluconazole (DIFLUCAN) 150 MG tablet Take one tablet every 3 days for 5 doses 5 Tablet 0 04/16/2023 Active Active Problems Problem Noted Date Cutaneous candidiasis 04/16/2023 Last Assessment & Plan: I recommended she [...] if she is not improving by Sunday. Midline cystocele 12/22/2021 Last Assessment & Plan: After placing #4 [...] for this visit and bring them along. Rectocele 12/22/2021 Last Assessment & Plan: Same as for cystocele as noted above. Irritable bowel syndrome with diarrhea 1 02/21/2021 Last Assessment & Plan: I strongly encouraged Tenisha to follow up with GI and consider Linzess. I explained that it would be worth a try as she is currently miserable with her diarrhea symptoms and it is limiting her ability to live her daily life. She agreed to consider and call her GI. Condyloma 12/11/2017 Subclinical hypothyroidism 10/13/2014 Esophageal reflux 09/02/2014 Depression 06/28/2012 Anxiety 06/28/2012 Chronic pain 06/28/2012 Vitamin B 12 deficiency 06/19/2012 Radiculitis, cervical 07/18/2010 Hyperlipidemia 05/23/2010 Tobacco use disorder 04/21/2005 Last Assessment & Plan: Trying to cut down Obesity, unspecified 04/21/2005 Resolved Problems Problem Noted Date Resolved Date Incomplete uterine prolapse 04/27/201712/13 Elevated blood pressure 03/12/2012 04/23/19 15 Alcohol abuse, episodic 04/10/2010 09/29/19 11 Immunizations Name Administration Dates Next Due COVID-19 (Moderna) 03/02/2021,05/19/2020, 021 Influenza (> 6 Months) 11/26/2020,11/18/2013 Influenza (>6 Months) Split Preservative Free 12/08/2014 PPD-RBMG 03/21/2001,03/19/2001 Tdap 10/21/2008 Family History Medical History Relation Name Comments CA Esophageal Brother Maternal 1/2 b rother valvular heart disease Father at the age of 46. 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 CA Breast Negative Hx CA Colon Negative Hx CA Ovarian Negative Hx Cancer of the Pancreas Negative Hx Cancer of the Prostate Negative Hx Uterine Cancer Negative Hx Relation Name Status Comments Brother Father heart problems Maternal Grandfather Maternal Grandmother Marga CORDERO Mother cardimyopathy Sister 1 Alive heart problems Sister 2 Alive heart problems Son Alive Social History Tobacco Use Types Packs/Day Years Used Date Smoking Tobacco: Every Day Cigarettes 0.5 Smokeless Tobacco: Never Tobacco Cessation:Ready to Q uit: Not Asked; Counseling Given: Not Answered Comments:She has been advised she should stop smoking. quit 01/2011 Alcohol Use Standard Drinks/Week Comments Yes 0 (1 standard drink = 0.6 oz pur e alcohol) occ Sex Assigned at Date Recorded Not on file Job Start Date Occupation Industry Not on file Not on file Not on file Last Filed Vital Signs Vital Sign Reading Time Taken Comments Blood Pressure 112/74 04/16/2023 2:10 PM EST Pulse 63 04/16/2023 2:10 PM EST Temperature 36.2 ??C (97.1 ??F) 02/17/2015 9:04 AM ES T Respiratory Rate 16 04/16/2023 2:10 PM EST Oxygen Saturation 97% 04/29/2018 8:45 AM EDT Inhaled Oxygen Concentration - - Weight 92 kg (202 lb 12.8 oz) 04/16/2023 2:10 PM EST Height 167.6 cm (5' 6 ) 04/16/2023 2:10 PM EST Body Mass Index 32.73 04/16/2023 2:10 PM EST Plan of Treatment Health Maintenance Due Date Last Done Comments SHINGLES VACCINE (1 of 2) 2012 BASELINE HEALTH EXAM 40-64 11/19/201511/18, 06/23/2011, 06/23/2011, Additional history exists DTAP/TDAP/TD (2 - Td or Tdap) 10/21/2018 10/21/2008 DEPRESSION SCREEN 04/30/2019 04/29/2018 (Completed) CHOLESTEROL SCREENING 12/17/2019 12/16/2014 , 10/01/2014, 11/07/2013, Additional history exists COLON CANCER SCREENING 08/24/2021 08/24/2016 TOBACCO CHECK/ADVISE 02/22/2022 02/23/2020, 04/29/2018 (Completed) Covid-19 Vaccine (4 - 2022-2 4 season) 2023 03/02/2021, 05/19/2020, 04/21/2020 INFLUENZA (#1) 2023 11/26/2020, 10/13 (External Completion of Vaccination per patient), 10/22/2017 (Completed), Additional history exists MAMMOGRAM 01/07/2024 01/06/2023, 12/13, 12/25/2020, Additional history exists BMI CHECK/ADVISE 02/13/2024 05/09/2022, 12/2020, 04/29/2018 (Completed), Additional history exists CERVICAL CANCER SCREENING 05/10/20272022, 04/27/2017, 12/08/2014, Additional history exists PNEUMOCOCCAL VACCINE FOR HIG H RISK PATIENTS (#1) 12/21/2027 HEPATITIS C SCREENING Completed 03/20/2013 Care Teams Readiness Paraprofessional Relationship Specialty Start Date End Date Name, MD Krzysztof PCP - General Internal Medicine 04/06/15
--- OUTSIDE RECORDS SUMMARY | 2024-04-14 15:10 | XMS_ITS | Encounter Summary ---
Author Organization [facility] Address [address] [place] [address] Care Team Providers Care Cert Occupational Therapy Asst Name Role Phone Name, Krzysztof PERSON Primary Care Provider Unavailabl e Encounter Details Date Type Department Care Team Description 04/11/2016 Leather Roller Report Medical Records [address] [place] [address] Kinga Clark MD Social History Tobacco Use Types Packs/Day Years Used Date Smoking Tobacco: Every Day Cigarettes 0.5 Smokeless Tobacco: Never Comments:She has been advise d she should stop smoking. quit 01/2011 Alcohol Use Standard Drinks/Week Comments No 0 (1 standard drink = 0.6 oz pur e alcohol) Sex Assigned at Date Recorded Not on file Job Start Date Occupation Industry Not on file Not on file Not on file documented as of this encounter Plan of Treatment Not on file documented as of this encounter Visit Diagnoses Not on filedocumented in this encounter Care Teams Cert Occupational Therapy Asst Relationship Specialty Start Date End Date Name, MD Krzysztof PCP - General Internal Medicine 04/06/15 documented as of this encounter
--- OUTSIDE RECORDS SUMMARY | 2024-04-14 15:10 | XMS_ITS | Encounter Summary ---
Author Organization [facility] Address [address] [place] [address] Care Team Providers Care Dope And Fabric Worker Name Role Phone Name, Krzysztof PERSON Primary Care Provider Unavailabl e Encounter Details Date Type Department Care Team Description 04/30/2017 Business Doc Medical Records [address] [place] [id number] Abstract, Provider Social History Tobacco Use Types [...] on filedocumented in this encounter Care Teams Dope And Fabric Worker Relationship Specialty Start Date End Date Name, MD Krzysztof PCP - General Internal Medicine 04/06/15 documented as of this encounter
--- OUTSIDE RECORDS SUMMARY | 2024-04-14 15:10 | XMS_ITS | Encounter Summary ---
Author Organization [facility] Address [address] [place] [address] Care Team Providers Care Steel Hanger Name Role Phone Name, Krzyszotf PERSON Primary Care Provider Unavailabl e Name, Krzysztof PERSON Primary Care Provider Unavailabl e Encounter Details Date Type Department Care Team Description 02/14/2011 Telehealth Nurse Report Medical Records [address] [place] [address] Babar Thurman MD Social History Tobacco Use Types Packs/Day [...] on filedocumented in this encounter Care Teams Steel Hanger Relationship Specialty Start Date End Date Krzysztof Martell MD PCP - General Internal Medicine 12/22/10 04/05/15 Krzysztof Martell MD PCP - General Internal Medicine 04/06/15 documented as of this encounter
--- OUTSIDE RECORDS SUMMARY | 2024-04-14 15:10 | XMS_ITS | Encounter Summary ---
Author Organization [employer] Address [address] [facility] 7t [place] [address] Care Team Providers Care Product Responsibility Liaison Name Role Phone Name, Krzysztof PERSON Primary Care Provider [phone] Reason for Visit * Reason Onset Date Comments Durable Medical Equipment 02/21/2023 Encounter Details Date Type Department Care Team ([facility] st Contact Info) Description 02/21/2023 Telephone [facility] [address] [place], [place] [phone] Name, MD Krzysztof [address] [place] [address] Durable Medical Equipment Social History Tobacco Use [...] requesting script to be send to a [facility] that does deliver DME. documented in this encounter Plan of Treatment Upcoming Encounters Date Type Department Care Team (Late st Contact Info) Description 04/25/2024 10:00 AM EDT Office Visit [address] [address] Name, MD Krzysztof [address] [place] [phone] 05/05/2024 1:00 PM EDT Clinical Support [address] [address] documented as of this encounter Visit Diagnoses Not on filedocumented in this encounter Care Teams Product Responsibility Liaison Relationship Specialty Start Date End Date Name, MD Krzysztof [address] [place] [phone] PCP - General Family Medicine 02/12/18 documented as of this encounter
--- OUTSIDE RECORDS SUMMARY | 2024-04-14 15:10 | XMS_ITS | Encounter Summary ---
Author Organization [facility] Address [address] [place] [address] Care Team Providers Care Silk Hanger Name Role Phone Name, Krzysztof PERSON Primary Care Provider Unavailabl e Encounter Details Date Type Department Care Team Description 09/18/2022 Pt. Non Urgent Medical Question Urogynecology [address] [phone] Nikole Arzola MD [address] [place] [address] [place] [address] Social History Tobacco Use Types Packs/Day Years [...] In the last 10 days, have ariel u been in contact with someone who was confirmed or suspected to have Coronavirus/COVID-19? No / Unsure 09/15/2022 10:22 AM EDT documented as of this encounter Plan of Treatment Not on file documented as of this encounter Visit Diagnoses Not on filedocumented in this encounter Care Teams Silk Hanger Relationship Specialty Start Date End Date Name, MD Krzysztof PCP - General Internal Medicine 04/06/15 documented as of this encounter
--- OUTSIDE RECORDS SUMMARY | 2024-04-14 15:10 | XMS_ITS | Encounter Summary ---
Author Organization [facility] Address [address] [place] [address] Care Team Providers Care Pre Press Proofer Name Role Phone Arvind Berry MD Primary Care Provider [phone] Name, Krzysztof PERSON Primary Care Provider Unavailabl e Name, Krzysztof PERSON Primary Care Provider Unavailabl e Encounter Details Date Type Department Care Team Description 08/17/2010 Hospital Medical Records [address] [place] [phone] Darío Tello DO Social History Tobacco Use Types Packs/Day Years [...] on filedocumented in this encounter Care Teams Pre Press Proofer Relationship Specialty Start Date End Date Arvind Berry MD [address] [place] [id number] PCP - General 08/14/00 12/21/10 Krzysztof Martell MD [address] [place] [phone] PCP - General Internal Medicine 12/22/10 04/05/15 Krzysztof Martell MD [address] [place] [id number] PCP - General Internal Medicine 04/06/15 documented as of this encounter
--- OUTSIDE RECORDS SUMMARY | 2024-04-14 15:10 | XMS_ITS | Encounter Summary ---
Author Organization [facility] Address [address] [place] [address] Care Team Providers Care Chemical Research Technician Name Role Phone Name, Krzysztof PERSON Primary Care Provider Unavailabl e Name, Krzysztof PERSON Primary Care Provider Unavailabl e Encounter Details Date Type Department Care Team Description 02/11/2015 [employer] Report Medical Records [address] [place] [address] Abstract, Provider Social History Tobacco Use Types [...] on filedocumented in this encounter Care Teams Chemical Research Technician Relationship Specialty Start Date End Date Krzysztof Martell MD PCP - General Internal Medicine 12/22/10 04/05/15 Krzysztof Martell MD PCP - General Internal Medicine 04/06/15 documented as of this encounter
== END 2024-04-14 13:36 | disposition home or self-care (01) ==
PROVIDERS: PCP Internal Medicine Geriatric Medicine; Visit Provider Internal Medicine Gastroenterology
DX: R19.8 Other specified symptoms and signs involving the digestive system and abdomen (principal)
CPT/HCPCS: 99213

== ENCOUNTER → 2024-04-14 12:56 | Outpatient (BNVA) | payer MEDICARE, MEDICAID, SELFPAY | PROVIDERS: PCP Internal Medicine Geriatric Medicine; Visit Provider Internal Medicine Gastroenterology | DX: R19.8 Other specified symptoms and signs involving the digestive system and abdomen (principal) | CPT/HCPCS: 99212 ==

== ENCOUNTER 2024-04-18 09:19 | Outpatient (AMB) | payer MEDICARE, MEDICAID, SELFPAY ==
--- NOTE | 2024-04-18 09:20 | A.OFFVIS_ITS ---
Vital Signs 04/18/24 09:33 Height 5 ft 6 in Weight 205 lb BMI 33.1 Intake Visit Reasons: OV- F/u inj last 01/18/24 R hip Intake Note: Tenisha is a 63 year old female who presents today for a follow up of her right hip bursitis. The right bursa hip was last injected on 01/18/24. She reports limited range of motion. Can Pusher Required: No Allergies sertraline [From ZOLOFT] Allergy (Severe, Verified 04/18/24 09:21) GI UPSET/LETHARGY/CONFUSION atorvastatin [ATORVASTATIN] Allergy (Intermediate, Verified 04/18/24 09:21) SEVER MUSCLE/FOOT PAIN oxycodone [OXYCODONE] Allergy (Intermediate, Verified 04/18/24 09:21) GI UPSET,CONFUSION cefaclor [From Ceclor] Allergy (Mild, Verified 04/18/24 09:21) DYSPNEA Penicillins Allergy (Mild, Verified 04/18/24 09:21) DYSPNEA vancomycin [Vancomycin] Allergy (Mild, Verified 04/18/24 09:21) ITCHING acetaminophen [Tylenol-Codeine #3] Allergy (Unknown, Verified 04/18/24 09:21) Unknown penicillin V Allergy (Unknown, Verified 04/18/24 09:21) unknown metronidazole [From Flagyl] Adverse Reaction (Unknown, Verified 04/18/24 09:21) Unknown Bactrim Allergy (Unknown, Uncoded 04/18/24 09:21) Unknown Medication List - Last Reconciled 04/18/24 by Catherine Blackwood RN [ABD gauze pads 1 box As directed] acetaminophen 1,000 mg (2 x 500 mg) PO Q6H PRN albuterol sulfate 90 mcg/actuation inhalation PRN cholecalciferol (vitamin D3) (Vitamin D3) 25 mcg PO DAILY cyanocobalamin (vitamin B-12) 1,000 mcg IM docusate sodium 100 mg PO BID fluticasone furoate 100 mcg/actuation (Arnuity Ellipta) 1 inh inhalation DAILY ibuprofen 800 mg PO TID [Kerlix gauze pads 1 box As directed] levothyroxine 50 mcg PO DAILY loratadine 10 mg PO DAILY mometasone 0.1% appl topical DAILY naloxone 4 mg/actuation 0 sprays intranasal paroxetine HCl 10 mg PO DAILY eucpowygg-pkbpuk-kpdhepna-scop 16.2-0.1037 -0.0194 mg (Phenohytro) 1 tab PO TID polyethylene glycol 3350 17 grams PO DAILY HPI HPI OV- F/u inj last 01/18/24 R hip: Details: I injected her hip about 3 mo ago and the benefits were brief. She describes lateral pain extending down to her knee. She denies groin pain. There is difficutly with stairs. [facility] Medical History (Updated 01/18/24 @ 13:23 by Matthias Robbins MD) Nicotine dependence, cigarettes, uncomplicated Abdominal wall mass Female bladder prolapse B12 deficiency Depression Hyperlipidemia Osteopenia Obesity Thyroid nodule Hypothyroidism (~2014) Surgical History Hx of abdominal surgery (04/30/23) History of incisional hernia repair (12/11/22) Previous section Hx of laparoscopy History of partial hysterectomy (05/2022) History of colonoscopy History of foot surgery Hx of mammogram Hx of cholecystectomy Hx of tonsillectomy History of esophagogastroduodenoscopy (EGD) Family History Father Heart disease Mother Cardiomyopathy Goiter Maternal Grandfather Stomach cancer Social History Alcohol intake: current Alcohol intake frequency: does not drink Patient Tobacco Use Status: Current everyday Tobacco user Tobacco use type: Cigarette Cigarette Packs Per Day: 0.5 Cigarettes Per Day: 10.0 Years Smoked: 40 - onset 22, 1.5-2ppd x 40yrs, 62+PYH Second Hand Smoke Exposure: No Physical Exam Vital Signs: BMI result Body Mass Index 33.1 Extrem Other: TTP right lateral hip Neg impingement Assessment & Plan Assessment & Plan (1) Greater trochanteric bursitis of right hip: Code(s): M70.61 - Trochanteric bursitis, right hip Category: Medical Plan: Greater trochanteric bursitis/ ITB sydrome. PT Orders: Orders PT Evaluation and Treatment 04/18/24 M70.61 - Trochanteric bursitis, right hip Coding Level of Care Code Est Pt Level 3 (93787) Diagnoses Greater trochanteric bursitis of right hip M70.61
[2024-04-18 09:33] VITALS: BMI 33.1
--- OUTSIDE RECORDS SUMMARY | 2024-04-18 10:06 | XMS_ITS | Encounter Summary ---
Author Organization [facility] [employer] Address [address] [facility] [address] [place] [address] Care Team Providers Care Field Checker Name Role Phone Name, Krzysztof PERSON Primary Care Provider [phone] Encounter Details Date Type Department Care Team (Late Contact Info) Description 07/14/2022 Abstract [facility] [address] [place] [address] [phone] NameKrzysztof MD [address] [place] [address] [phone] Social History Tobacco Use Types Packs/Day Years [...] Upcoming Encounters Date Type Department Care Team ([facility] Contact Info) Description 04/25/2024 10:00 AM EDT Office Visit [facility] [address] [place] [address] [phone] Name, [place] [address] 05/05/2024 1:00 PM EDT Clinical Support [facility] [place] [address] documented as of this encounter Procedures Procedure [...] PM EST Recommended routine annual mammo ( [facility] us Historical Provider MD CHOCO GAINES Edited Result - Final documented in this encounter Visit Diagnoses Not on filedocumented in this encounter Care Teams Field Checker Relationship Specialty Start Date End Date Name, [place] [address] PCP - General Family Medicine 02/12/18 documented as of this encounter
--- OUTSIDE RECORDS SUMMARY | 2024-04-18 10:06 | XMS_ITS | Encounter Summary ---
Author Organization [facility] [employer] Address [address] [place] [address] [address] [place] [address] Care Team Providers Care Braider Operator Name Role Phone Name, Krzysztof PERSON Primary Care Provider [phone] Reason for Visit * Reason Onset Date Comments Med Refill 08/21/2022 Encounter Details Date Type Department Care Team (Late st Contact Info) Description 08/21/2022 Refill [facility] [address] [place], [place] [phone] Name, MD Krzysztof [address] [place] [address] Social History Tobacco Use Types Packs/Day Years [...] Description 04/25/2024 10:00 AM EDT Office Visit [address] [address] Name, MD Krzysztof [address] [place] [address] 05/05/2024 1:00 PM EDT Clinical Support [address] [address] documented as of this encounter Visit Diagnoses Not on filedocumented in this encounter Care Teams Braider Operator Relationship Specialty Start Date End Date Name, MD Krzysztof [address] [place] [address] PCP - General Family Medicine 02/12/18 documented as of this encounter
--- OUTSIDE RECORDS SUMMARY | 2024-04-18 10:06 | XMS_ITS | Encounter Summary ---
Author Organization [facility] [employer] Address [address] [facility] 7t [place] [address] Care Team Providers Care Roll Hauler Name Role Phone Name, Krzysztof PERSON Primary Care Provider [phone] Encounter Details Date Type Department Care Team ([facility] Contact Info) Description 08/31/2022 Orders Only [facility] [address] [place] [address] [phone] NameKrzysztof MD [address] [place] [address] [phone] Subclinical hypothyroidism Social History Tobacco Use Types [...] Upcoming Encounters Date Type Department Care Team ([facility] Contact Info) Description 04/25/2024 10:00 AM EDT Office Visit [facility] [address] [place] [address] [phone] Name, [place] [address] 05/05/2024 1:00 PM EDT Clinical Support [facility] [place] [address] documented as of this encounter Procedures Procedure Name Priority Date/Time Associated Diagnosis Comments TSH W/REFLEX TO FT4 Routine 08/31/2022 8:48 AM EDT Subclinical hypothyroidism documented in this encounter Results * (ABNORMAL) TSH W/Reflex to FT4 (08/31/2022 8:48 AM EDT) TSH reflex Free T4 4.39(H) 0.32 - 4.0 uIU/mL [facility] Blood 08/31/2022 8:48 AM EDT 08/31/2022 11:21 AM EDT Krzysztof Martell MD LAB BLOOD ORDERABLES Final Resul t [facility] [address] [place] [address] [phone] documented in this encounter Visit Diagnoses Diagnosis Subclinical hypothyroidism Other specified acquired hypothyroidism documented in this encounter Care Teams Roll Hauler Relationship Specialty Start Date End Date Name, [place] [address] PCP - General Family Medicine 02/12/18 documented as of this encounter
--- OUTSIDE RECORDS SUMMARY | 2024-04-18 10:06 | XMS_ITS | Encounter Summary ---
Author Organization [employer] Address 75 [facility] 7t [place] [address] Care Team Providers Care Scrap Breaker Name Role Phone Name, Krzysztof PERSON Primary Care Provider [phone] Reason for Visit * Reason Comments Med Refill Encounter Details Date Type Department Care Team ([facility] st Contact Info) Description 04/12/2024 Refill [facility] [address] [place], [place] [phone] Name, MD Krzysztof [address] [place] [address] Anxiety Social History Tobacco Use Types Packs/Day [...] Description 04/25/2024 10:00 AM EDT Office Visit [address] [address] Name, MD Krzysztof [address] [place] [address] 05/05/2024 1:00 PM EDT Clinical Support [address] [address] documented as of this encounter Visit Diagnoses Diagnosis Anxiety Anxiety state, unspecified documented in this encounter Additional Health Concerns Assessment Noted Time PHQ-9 Depression Total Score: 0 05/29/19 24 9:06 AM EDT documented as of this encounter Care Teams Scrap Breaker Relationship Specialty Start Date End Date Name, MD Krzysztof [address] [place] [address] PCP - General Family Medicine 02/12/18 documented as of this encounter
--- OUTSIDE RECORDS SUMMARY | 2024-04-18 10:06 | XMS_ITS | Encounter Summary ---
Author Organization [employer] Address 75 [facility] 7t [place] [address] Care Team Providers Care Supervisor Tan Room Name Role Phone Name, Krzysztof PERSON Primary Care Provider [phone] Reason for Visit * Reason Comments Med Refill Encounter Details Date Type Department Care Team ([facility] st Contact Info) Description 04/12/2024 Refill [facility] [address] [place], [place] [phone] Odilia Niño FNP [address] [place], [place] [phone] Vitamin B 12 deficiency; Anxiety Social History [...] Description 04/25/2024 10:00 AM EDT Office Visit [address] [address] Name, MD Krzysztof [address] [place] [address] 05/05/2024 1:00 PM EDT Clinical Support [address] [address] documented as of this encounter Visit Diagnoses Diagnosis Vitamin B 12 deficiency Other B-complex deficiencies Anxiety Anxiety state, unspecified documented in this encounter Additional Health Concerns Assessment Noted Time PHQ-9 Depression Total Score: 0 05/29/19 24 9:06 AM EDT documented as of this encounter Care Teams Supervisor Tan Room Relationship Specialty Start Date End Date Name, MD Krzysztof [address] [place] [address] PCP - General Family Medicine 02/12/18 documented as of this encounter
--- OUTSIDE RECORDS SUMMARY | 2024-04-18 10:06 | XMS_ITS | Encounter Summary ---
Author Organization [employer] Address 75 [facility] 7t [place] [address] Care Team Providers Care Swaging Machine Operator Name Role Phone Name, Krzysztof PERSON Primary Care Provider [phone] Encounter Details Date Type Department Care Team (Late st Contact Info) Description 09/20/2023 Orders Only [facility] [address] [place] [address] Angelica Kyle RN Vitamin B 12 deficiency [...] Description 04/25/2024 10:00 AM EDT Office Visit [address] [address] Name, MD Krzysztof [address] [place] [address] 05/05/2024 1:00 PM EDT Clinical Support [address] [address] documented as of this encounter Procedures Procedure [...] EDT Narrative 09/28/2023 3:06 PM EDT ? [facility] ?[address] ?[place] [address] ?XRay Report ? Signed ? Patient: Robert,Tenisha V ?MR#: [id number] ?? 14 ? : 1960 ?Acct:[id number] ? Age/Sex: 62 / F ?ADM Date: 08/16/24 ? Loc: HO.ED ? Attending Dr: ? Ordering Physician: Tamica Bullard ?? Date of Service: 09/28/23 ?? Procedure(s): XR tibia fibula LT 2V ?? Accession Number(s): [id number] ? cc: Tamica Bullard; Name,Krzysztof PERSON ? [...] 1502 ? DD/ 1449 ? TD/TT: ? X Ray Examiner Of Aircraft: CB ? Procedure Note Jerzy, Image - 09/28/2023 [place] [address] XRay Report Signed Patient: Tenisha Jones VMR#: [id number] 14 : 1960Acct:[id number] Age/Sex: 62 / FADM Date: 09/28/23 Loc: HO.ED Attending Dr: Ordering Physician: Tamica Bullard Date of Service: 09/28/23 Procedure(s): XR tibia fibula LT 2V Accession Number(s): [id number] cc: Tamica Bullard; Name,Krzysztof PERSON EXAMINATION: XR [...] DO inOV> 09/28/23 1502 DD/ 1449 TD/TT: X Ray Examiner Of Aircraft: TA [facility] External Provider IMG XR PROCEDURES Final Result * XR Knee 4+ Views Right (09/28/2023 1:34 PM EDT) Anatomical Region Laterality Modality Lower Extremities, Knee Right Radiogra phic Imaging 09/28/2023 1:34 PM EDT Narrative 09/28/2023 3:13 PM EDT ? [facility] ?[address] ?[place] [address] ?XRay Report ? Signed ? Patient: Robert,Tenisha V ?MR#: [id number] ?? 14 ? : 1960 ?Acct:[id number] ? Age/Sex: 62 / F ?ADM Date: 09/28/23 ? Loc: HO.ED ? Attending Dr: ? Ordering Physician: Nella Mercer ?? Date of Service: 09/28/23 ?? Procedure(s): XR knee RT 4V ?? Accession Number(s): [id number] ? cc: Krzysztof Martell MD; Nella Mercer [...] 1509 ? DD/ 1334 ? TD/TT: ? X Ray Examiner Of Aircraft: CB ? Procedure Note Jerzy, Image - 09/28/2023 [facility] [address] [place] [address] XRay Report Signed Patient: Tenisha Jones VMR#: [id number] 14 : 1960Acct:[id number] Age/Sex: 62 / FADM Date: 09/28/23 Loc: HO.ED Attending Dr: Ordering Physician: Nella Mercer Date of Service: 09/28/23 Procedure(s): XR knee RT 4V Accession Number(s): [id number] cc: Krzysztof Martell MD; Nella Mercer EXAMINATION: [...] DO inOV> 09/28/23 1509 DD/ 1334 TD/TT: X Ray Examiner Of Aircraft: TA [facility] External Provider IMG XR PROCEDURES Final Result documented in this encounter Visit Diagnoses Diagnosis Vitamin B 12 deficiency Other B-complex deficiencies documented in this encounter Additional Health Concerns Assessment Noted Time PHQ-9 Depression Total Score: 0 05/29/19 24 9:06 AM EDT documented as of this encounter Care Teams Swaging Machine Operator Relationship Specialty Start Date End Date Name, MD Krzysztof [address] [place] [address] PCP - General Family Medicine 02/12/18 documented as of this encounter
--- OUTSIDE RECORDS SUMMARY | 2024-04-18 10:06 | XMS_ITS | Encounter Summary ---
Author Organization [employer] Address 75 [facility] 7t [place] [address] Care Team Providers Care Buckshot Swage Operator Name Role Phone Name, Krzysztof PERSON Primary Care Provider [phone] Reason for Visit * Reason Onset Date Comments Durable Medical Equipment 02/21/2023 Encounter Details Date Type Department Care Team ([facility] st Contact Info) Description 02/21/2023 Telephone [facility] [address] [place], [place] [phone] Name, MD Krzysztof 230 [place] [address] Durable Medical Equipment Social History Tobacco Use [...] requesting script to be send to a [employer] that does deliver DME. documented in this encounter Plan of Treatment Upcoming Encounters Date Type Department Care Team (Late st Contact Info) Description 04/25/2024 10:00 AM EDT Office Visit [address] [address] Name, MD Krzysztof [address] [place] [address] 05/05/2024 1:00 PM EDT Clinical Support [address] [address] documented as of this encounter Visit Diagnoses Not on filedocumented in this encounter Care Teams Buckshot Swage Operator Relationship Specialty Start Date End Date Name, MD Krzysztof [address] [place] [address] PCP - General Family Medicine 02/12/18 documented as of this encounter
--- OUTSIDE RECORDS SUMMARY | 2024-04-18 10:06 | XMS_ITS | Clinical Summary ---
Author Organization [facility] [address] [place] [address] [place] [phone] Phone Care Team Providers Care Hammerer Name Role Phone Name, Krzysztof PERSON Primary Care Provider [phone] Allergies Active Allergy Reactions Criticality Noted Date [...] 1:00 PM EST Office Visit Urogynecology - [address] [phone] Angelica Gunderson NP Pyuria (Primary Dx); Cystocele with rectocele 02/09/2024 8:30 AM EST - 02/09/2024 11:59 PM EST Hospital Encounter Radiology Department - [address] [phone] Encounter for screening mammogram for breast cancer [...] Mother a t the age of 66.goiter, [employer] cancer ? Breast cancer Neg Hx Colon [...] mixed bacterial nimco 03/08/2024 10:45 AM EST [facility] Urine Urinary bladder structure / Unknown Non-blood Collection / Unknown 03/06/2024 1:58 PM EST 03/06/2024 1:58 PM EST us Angelica Gunderson NP LAB MICROBIOLOGY - GENERAL ORDERABLES Final Result [facility] [address] [place] [address], * MG Mammo Digital Screening w Deven bilat (02/09/2024 8:44 AM EST) Anatomical Region Laterality Modality Breast Bilateral Mammography 02/11/2024 7:32 PM EST Impressions 02/11/2024 7:33 PM EST No mammographic evidence of malignancy. BREAST DENSITY: B - There are scattered areas of fibroglandular density. BI-RADS CATEGORY: 1 - NEGATIVE RECOMMENDATION: Screening bilateral mammogram is recommended in 1 year. MAMMO LOCATION: [facility], [address] [place] [address], [phone], . -------- FINAL REPORT -------- Dictated By: Ashli Tirado Dictated Date: 02/11/2024 19:32 ET Assigned Physician: Ashli Tirado Reviewed and Electronically Signed By: Ashli Tirado Signed Date: 02/11/2024 19:33 ET Workstation ID: [id number] Transcribed By: Self Edit Transcribed Date: 02/11/2024 [...] is recommended in 1 year. MAMMO LOCATION: [facility], [address] [place] [address], [address], . -------- FINAL REPORT -------- Dictated By: Ashli Tirado Dictated Date: 02/11/2024 19:32 ET Assigned Physician: Ashli Tirado Reviewed and Electronically Signed By: Ashli Tirado Signed Date: 02/11/2024 19:33 ET Workstation ID: [id number] Transcribed By: Self Edit Transcribed Date: 02/11/2024 19:32 ET Krzysztof Martell MD IMG BI PROCEDURES Final Result from Last 3 Months Insurance MEDICAID - [place] MEDICARE Care Teams Hammerer Relationship Specialty Start Date End Date Name, MD Krzysztof 4 [facility] [place] PCP - General Internal Medicine 12/22/10
--- OUTSIDE RECORDS SUMMARY | 2024-04-18 10:06 | XMS_ITS | Encounter Summary ---
Demographics Address [address] [place] [address] Mobile Phone Home Phone Email Address Preferred Language en Marital Status Legally Latter Day Affiliation Unknown Race White Ethnic Group Not or Lati no Author Organization [employer] Address 75 [facility] 7t [place] [address] Care Team Providers Care Cullet Washer Name Role Phone Name, Krzysztof PERSON Primary Care Provider [phone] Reason for Visit * Reason Onset Date Comments PA Clarification 12/19/2022 Prior Authorization 12/19/2022 Phenobarbita l Encounter Details Date Type Department Care Team ([facility] st Contact Info) Description 12/19/2022 Telephone [facility] [address] [place], [place] [phone] Name, MD Krzysztof [address] [place], [place] [phone] PA Clarification ; Prior Authorization (Phenobarbital) Social [...] 1:27 PM EST TW returned call to [facility], a clarification of dosage was needed and was corrected with information on in chart. [facility] determined that a PA was not needed for this medication and that the Pharmacy was to call the Pharmacy Help Desk at [phone]. Pharmacy was called and informed. * Telephone Encounter - Mauro Figueroa - 12/19/2022 11:53 AM EST Tc from Cam with [facility] requesting a call from a nurse or provider in regards to a PA form that was received. ( Did specify which medication) Cam states that in order to approve some verification and clarification most be revised. Please contact Cam at [phone] documented in this encounter Plan of Treatment Upcoming Encounters Date Type Department Care Team (Late st Contact Info) Description 04/25/2024 10:00 AM EDT Office Visit [facility] [address] [place] [phone] Name, MD Krzysztof [address] [place] [address] 05/05/2024 1:00 PM EDT Clinical Support [address] [address] documented as of this encounter Visit Diagnoses Not on filedocumented in this encounter Care Teams Cullet Washer Relationship Specialty Start Date End Date Name, MD Krzysztof [address] [facility] [place] [address] PCP - General Family Medicine 02/12/18 documented as of this encounter
--- OUTSIDE RECORDS SUMMARY | 2024-04-18 10:06 | XMS_ITS | Clinical Summary ---
Demographics Address [address] [place] [address] Mobile Phone Home Phone Email Address Preferred Language en Marital Status Legally Sabianist Affiliation Unknown Race White Ethnic Group Not or Lati no Author Organization [employer] Address [address] [place] [address] 7t [place] [address] Care Team Providers Care Hospital Nurse Liaison Name Role Phone Name, Krzysztof PERSON Primary Care Provider [phone] Allergies Active Allergy Reactions Criticality Noted Date [...] Last Assessment & Plan: I strongly encouraged Tneisha to follow up with GI and consider [...] Type Department Care Team Description 04/12/2024 Refill [facility] [address] [place] [address] Name, MD Krzysztof Anxiety 04/12/2024 Refill [facility] [place] [address] Odilia Niño FNP Vitamin B 12 deficiency; Anxiety 04/04/2024 11:00 AM EST Clinical Support [address] [place] [address] Chitra Madrid, SAMRA Vitamin B 12 deficiency 04/03/2024 Travel 03/13/2024 Orders Only GENERIC EXTERNAL DATA DEPARTMENT Provider, Generic External Data 02/20/2024 9:30 AM EST Clinical Support [address] [address] Chitra Madrid, SAMRA Vitamin B 12 deficiency 02/19/2024 Travel 02/14/[address] [address] Carolina Chopra [place] jan recalls 01/29/2024 Orders Only [facility] External Provider, [facility] 01/25/2024 1:15 PM EST Office Visit [address] [address] Chepe Moreno MD Xanthoma (Primary Dx) 01/25/2024 Travel 01/22/2024 9:30 AM EST Clinical Support [address] [address] Chitra Madrid, SAMRA Vitamin B 12 deficiency 01/22/[address] [address] Chitra Madrid, SAMRA 01/22/2024 Travel from Last 3 Months Immunizations Name [...] Description 04/25/2024 10:00 AM EDT Office Visit [address] [address] Name, MD Krzysztof [address] [place] [address] 05/05/2024 1:00 PM EDT Clinical Support [address] [address] Health Maintenance Due Date Last Done Comments [...] Stimulating Hormone 2.26 0.32 - 4.0 uIU/mL [facility] Comment:TSH 3rd Generation ( [facility]) 03/13/2024 9:37 AM EST 03/13/2024 9:37 AM EST Generic External Data Provider LAB BLOOD ORDERAB LES Final Result Performing Organization Address City/[facility]/ZIP Co de Phone Number [facility] [address] [place] [phone] * T4, Free (03/13/2024 9:37 AM EST) Free T4 (Free Thyroxine) 1.16 0.71 - 1.85 ng/dL [facility] 03/13/2024 9:37 AM EST 03/13/2024 9:37 AM EST Generic External Data Provider LAB BLOOD ORDERAB LES Final Result Performing Organization Address [facility] Co de Phone Number [facility] [address] [place] [phone] * US Thyroid (02/04/2024 8:00 AM EST) Anatomical Region Laterality Modality Head, Neck Ultrasound 02/04/2024 8:00 AM EST Narrative 03/13/2024 11:38 AM EST ? [facility] ?[address] ?[place] [address] ? Ultrasound Report ? Signed ? Patient: Robert,Tenisha V ?MR#: [id number] ?? 14 ? : 1960 ?Acct:[id number] ? Age/Sex: 63 / F ?ADM Date: 02/04/24 ? Loc: HO.US ? Attending Dr: Carla Prieto MD ? Ordering Physician: Carla Prieto MD ?? Date of Service: 02/04/24 ?? Procedure(s): US thyroid ?? Accession Number(s): [id number] ? cc: Carla Prieto MD; Name,Krzysztof PERSON [...] Cisneros MD in OV> ?03/13/24 1135 ? DD/ 0800 ? TD/TT: 02/04/24 0806 ? Any Commodity Buyer: ? Procedure Note Donjacquelinsherylter, Image - 03/13/2024 [place] [address] Ultrasound Report Signed Patient: Tenisha Jones VMR#: [id number] 14 : 1960Acct:[id number] Age/Sex: 63 / FADM Date: 02/04/24 Loc: HO.US Attending Dr: Carla Prieto MD Ordering Physician: Carla Prieto MD Date of Service: 02/04/24 Procedure(s): US thyroid Accession Number(s): [id number] cc: Carla Prieto MD; Name,Krzysztof PERSON EXAMINATION: [...] 03/13/24 1135 DD/ 0800 TD/TT: 02/04/24 0806 Any Commodity Buyer: [facility] External Provider IMG US PROCEDURES Final Result * CT Lung Screening Low dose (01/29/2024 8:09 AM EST) Anatomical Region Laterality Modality Lung Computed Tomogra phy 01/29/2024 8:09 AM EST Narrative 03/12/2024 8:51 AM EST ? [facility] ?[address] ?[place] [address] ? CT Scan Report ? Signed ? Patient: Robert,Tenisha V ?MR#: [id number] ?? 14 ? : 1960 ?Acct:[id number] ? Age/Sex: 63 / F ?ADM Date: 12/17/24 ? Loc: HO.CT ? Attending Dr: Richa Wing PA-C ? Ordering Physician: Richa Wing PA-C ?? Date of Service: 01/29/24 ?? Procedure(s): CT lung screening ?? Accession Number(s): [id number] ? cc: Richa Wing PA-C; Name,Krzysztof PEROSN ? Report Number: ?? [id number]: Total DLP = ?? 73.00 mGy-cm ?? [...] Exam submitted for review 03/12/2024 7:48 AM FUNDRAISING OFFICER. ? FINDINGS: ? PULMONARY NODULES: ?? -A [...] for CT CHEST LOW DOSE CANCER SCREENING ([id number]) ?? can be placed. ? Electronically signed by: ??Joaquim Loyola MD ??03/12/2024 08:48 AM EST RP ? Dictated By: ?Joaquim Loyola MD ? Signed By: ?<Electronically signed by Joaquim Loyola MD in OV> ?03/12/24 0848 ? DD/ 0809 ? TD/TT: 01/29/24 0843 ? Any Commodity Buyer: ? Procedure Note Jerzy, Image - 03/12/[address] [address] [address] Scan Report Signed Patient: Tenisha Jones VMR#: [id number] 14 : 1960Acct:[id number] Age/Sex: 63 / FADM Date: 01/29/24 Loc: HO.CT Attending Dr: Richa Wing PA-C Ordering Physician: Richa Wing PA-C Date of Service: 01/29/24 Procedure(s): CT lung screening Accession Number(s): [id number] cc: Richa Wing PA-C; Name,Krzysztof PERSON Report Number: [id number]: Total DLP = 73.00 mGy-cm EXAMINATION: CT [...] Exam submitted for review 03/12/2024 7:48 AM FUNDRAISING OFFICER. FINDINGS: PULMONARY NODULES: -A few tiny calcified [...] for CT CHEST LOW DOSE CANCER SCREENING ([id number]) can be placed. Electronically signed by: Joaquim Loyola MD 03/12/2024 08:48 AM [facility] Dictated By: Joaquim Loyola MD Signed By: <Electronically signed by Joaquim Loyola MD in OV> 03/12/24 0848 DD/ 0809 TD/TT: 01/29/24 0843 Any Commodity Buyer: [facility] External Provider [facility] CT PROCEDURES Edited Result - Final * (ABNORMAL) Lipid Panel, Standard (06/29/2022 7:58 AM EDT) Cholesterol, Total 267(H) <200 mg/dL [employer] [facility] [employer] HDL Cholesterol 52 > OR = 50 mg/dL [employer] [facility] [employer] Triglycerides 151(H) <150 mg/dL [employer] LDL Cholesterol 185(H) mg/dL (calc) [employer] Comment: Reference range: <100 Desirable range <100 mg/dL for primary prevention; ?? <70 mg/dL for patients with CHD or diabetic patients with > or = 2 CHD risk factors. LDL-C is now calculated using the Leora calculation, which is a validated novel method providing better accuracy than the Friedewald equation in the estimation of LDL-C. Ankur SS et al. JOSE ALEJANDRO. 2013;310(19): 6731-1322 (http://education.thrdPlace/faq/JDP053) Chol/HDLC Ratio 5.1(H) <5.0 (calc) [employer] Non-HDL Cholesterol 215(H) <130 mg/dL (calc) [employer] Comment: For patients with diabetes plus 1 major ASCVD risk factor, treating to a non-HDL-C goal of <100 mg/dL (LDL-C of <70 mg/dL) is considered a therapeutic option. Blood Venous blood specimen / Unknown 06/29/2022 7:58 AM EDT 06/29/2022 7:58 AM EDT Narrative [facility] - 06/29/2022 10:32 PM EDT FASTING:YES FASTING: YES Krzysztof Martell MD LAB BLOOD ORDERABLES Final Resul t [facility] [address], [place] [address] [employer] [address] [place] [phone] * Pap Smear (05/09/2022 12:00 AM EDT) Historical Provider HEALTH MAINTENANCE Final Result * Hm Colonoscopy (08/24/2016) Colonoscopy performed Historical Provider HEALTH MAINTENANCE Final Result from Last 3 Months or Most Recently Relevant to Health Maintenance Insurance MEDICARE [facility] STANDARD * Guarantor: Tenisha Jones V Account Type Relation to Patient Date of Phone Billing Address Personal/Family Self [address] [place] Care Teams Hospital Nurse Liaison Relationship Specialty Start Date End Date Name, MD Krzysztof [address] [facility] [place] [address] PCP - General Family Medicine 02/12/18
--- OUTSIDE RECORDS SUMMARY | 2024-04-18 10:06 | XMS_ITS | Encounter Summary ---
Author Organization [facility] [employer] Address [address] [place] [address] [address] [place] [address] Care Team Providers Care Rn Clinical Documentation Specialist Name Role Phone Name, Krzysztof PERSON Primary Care Provider [phone] Encounter Details Date Type Department Care Team (Late Contact Info) Description 01/18/2022 Abstract [facility] [address] [place] [address] [phone] Name, MD Krzysztof [address] [place] [address] [phone] Social History Tobacco Use Types Packs/Day Years [...] Description 04/25/2024 10:00 AM EDT Office Visit [facility] [address] [place] [address] [phone] Name, MD Krzysztof [address] [place] [address] [phone] 05/05/2024 1:00 PM EDT Clinical Support [facility] [address] [place] [address] documented as of this encounter Visit Diagnoses Not on filedocumented in this encounter Care Teams Rn Clinical Documentation Specialist Relationship Specialty Start Date End Date Name, MD Krzysztof [address] [place] [address] PCP - General Family Medicine 02/12/18 documented as of this encounter
--- OUTSIDE RECORDS SUMMARY | 2024-04-18 10:06 | XMS_ITS | Encounter Summary ---
Author Organization [employer] Address [address] [place] [address] 7 [place] [address] Care Team Providers Care Buckle Wire Inserter Name Role Phone Name, Krzysztof PERSON Primary Care Provider [phone] Encounter Details Date Type Department Care Team (Late st Contact Info) Description 07/01/[address] [facility] [address] [place], [place] [phone] Nils Meza MD [address] [place], [place] [phone] Social History Tobacco Use Types Packs/Day Years [...] Description 04/25/2024 10:00 AM EDT Office Visit [facility] [address] [place] [address] [phone] Name, MD Krzysztof [address] [place] [address] [phone] 05/05/2024 1:00 PM EDT Clinical Support [address] [address] documented as of this encounter Visit Diagnoses Not on filedocumented in this encounter Care Teams Buckle Wire Inserter Relationship Specialty Start Date End Date Name, MD Krzysztof [address] [place] [address] PCP - General Family Medicine 02/12/18 documented as of this encounter
--- OUTSIDE RECORDS SUMMARY | 2024-04-18 10:07 | XMS_ITS | Encounter Summary ---
Author Organization [employer] Address [address] [facility] 7t [place] [address] Care Team Providers Care Senior Health Physics Technician Name Role Phone Name, Krzysztof PERSON Primary Care Provider [phone] Reason for Visit * Reason Comments B12 Injection Encounter Details Date Type Department Care Team (Latest Contact Info) Description 04/04/2024 11:00 AM EST Clinical Support [facility] [address] [place], [place] [phone] Chitra Madrid RN [address] [place], [place] [phone] Vitamin B 12 deficiency Social History Tobacco [...] 04/25/2024 10:00 AM EDT Office Visit [facility] [address] [place] [phone] Name, MD Krzysztof [address] [place] [address] 05/05/2024 1:00 PM EDT Clinical Support [address] [address] documented as of this encounter Visit Diagnoses [...] documented as of this encounter Care Teams Senior Health Physics Technician Relationship Specialty Start Date End Date Name, MD Krzysztof [address] [place] [address] PCP - General Family Medicine 02/12/18 documented as of this encounter
--- OUTSIDE RECORDS SUMMARY | 2024-04-18 10:07 | XMS_ITS | Encounter Summary ---
Demographics Address [address] [place] [address] Mobile Phone Home Phone Email Address Preferred Language en Marital Status Legally Sikhism Affiliation Unknown Race White Ethnic Group Not or Lati no Author Organization [employer] Address [address] [facility] [address] [address] 7t [place] [address] Care Team Providers Care Control Specialist Name Role Phone Name, Krzysztof PERSON Primary Care Provider [phone] Encounter Details Date Type Department Care Team [...] Visit [facility] [address] [place] [phone] Name, MD Krzysztof [address] [place] [phone] 05/05/2024 1:00 PM EDT Clinical Support [address] [address] documented as of this encounter Visit Diagnoses Not on filedocumented in this encounter Additional Health Concerns Assessment Noted Time PHQ-9 Depression Total Score: 0 05/29/19 24 9:06 AM EDT documented as of this encounter Care Teams Control Specialist Relationship Specialty Start Date End Date NameKrzysztof MD [address] [place] [address] PCP - General Family Medicine 02/12/18 documented as of this encounter
== END 2024-04-18 09:57 | disposition home or self-care (01) ==
PROVIDERS: PCP Internal Medicine Geriatric Medicine; Visit Provider Orthopaedic Surgery
DX: M70.61 Trochanteric bursitis, right hip (principal)
CPT/HCPCS: 99213

== ENCOUNTER → 2024-04-18 09:19 | Outpatient (BNVA) | payer MEDICARE, MEDICAID, SELFPAY | PROVIDERS: PCP Internal Medicine Geriatric Medicine; Visit Provider Orthopaedic Surgery | DX: M70.61 Trochanteric bursitis, right hip (principal) | CPT/HCPCS: 99212 ==

== ENCOUNTER 2024-06-18 13:59 | Outpatient (AMB) | payer MEDICARE, MEDICAID, SELFPAY ==
--- NOTE | 2024-06-18 14:12 | MHC.OFFVIS ---
Vital Signs 06/18/24 14:14 Height 5 ft 6 in Weight 208 lb BMI 33.6 BP 142/82 H Blood Pressure Location Lt brachial Position Sitting Respiration 16 Pulse 110 H Pulse Source Pulse Oximeter Pulse Oximetry (%) 96 Oxygen Delivery Method Room Air Intake Visit Reasons: Trochanteric bursitis of rt hip Timber Estimator Required: No Allergies sertraline [From ZOLOFT] Allergy (Severe, Verified 06/18/24 14:15) GI UPSET/LETHARGY/CONFUSION atorvastatin [ATORVASTATIN] Allergy (Intermediate, Verified 06/18/24 14:15) SEVER MUSCLE/FOOT PAIN oxycodone [OXYCODONE] Allergy (Intermediate, Verified 06/18/24 14:15) GI UPSET,CONFUSION cefaclor [From Ceclor] Allergy (Mild, Verified 06/18/24 14:15) DYSPNEA Penicillins Allergy (Mild, Verified 06/18/24 14:15) DYSPNEA vancomycin [Vancomycin] Allergy (Mild, Verified 06/18/24 14:15) ITCHING acetaminophen [Tylenol-Codeine #3] Allergy (Unknown, Verified 06/18/24 14:15) Unknown penicillin V Allergy (Unknown, Verified 06/18/24 14:15) unknown metronidazole [From Flagyl] Adverse Reaction (Unknown, Verified 06/18/24 14:15) Unknown Bactrim Allergy (Unknown, Uncoded 06/18/24 14:15) Unknown Medication List - Last Reconciled 06/18/24 by Nadeen Greenfield LPN [ABD gauze pads 1 box As directed] acetaminophen 1,000 mg (2 x 500 mg) PO Q6H PRN albuterol sulfate 90 mcg/actuation inhalation PRN cholecalciferol (vitamin D3) (Vitamin D3) 25 mcg PO DAILY cyanocobalamin (vitamin B-12) 1,000 mcg IM docusate sodium 100 mg PO BID fluticasone furoate 100 mcg/actuation (Arnuity Ellipta) 1 inh inhalation DAILY hydrocodone-acetaminophen 5-325 mg 1 tab PO Q6H PRN ibuprofen 800 mg PO TID [Kerlix gauze pads 1 box As directed] levothyroxine 50 mcg PO DAILY loratadine 10 mg PO DAILY mometasone 0.1% appl topical DAILY naloxone 4 mg/actuation 0 sprays intranasal paroxetine HCl 10 mg PO DAILY gjlyixuao-bqzxii-akgekhxa-scop 16.2-0.1037 -0.0194 mg (Phenohytro) 1 tab PO TID polyethylene glycol 3350 17 grams PO DAILY HPI Comments Details: The patient is a 63-year-old female presenting with chronic right hip and lateral thigh pain resulting from a fall in September of the previous year. Initially treated with a cortisone injection by orthopedics and physical therapy, her symptoms persisted, indicating potential sacroiliac joint dysfunction and iliotibial band syndrome not fully addressed by previous interventions. Despite imaging results showing no abnormalities, the patient continues to experience significant pain in the hip radiating to the lower extremities, which affects mobility and daily functions. Patient is currently active in physical therapy though she states it is not helping her pain. They recommended she hold off further sessions until being evaluated in our office. She is currently alternating Motrin and Vicodin throughout the day. This provides her some relief though pain persists. - Onset: September of the previous year, post-fall at the grocery store. - Quality and Character: Severe, radiating from hip down the thigh, occasionally into the groin. - Primary Location: Right hip. - Radiation: Down the leg to the knee, sometimes into the groin. - Exacerbating Factors: Prolonged sitting, standing, walking, stair descent, adverse weather. - Relieving Factors: Heat application; alternative topical treatment with ?snake oil.? - Interference: Walking, dressing, showering, and other activities of daily living severely impacted. - Affect: Pain significantly affects mood and daily functioning. - Analgesia: Current medications include Vicodin and Motrin, providing partial relief. - Adverse Effects: No reported adverse effects from current pain medications. - Activities of Daily Living: Major limitations in mobility and daily activities, needing assistance. - Aberrant Drug Related Behaviors: None reported. [facility] Medical History (Updated 06/18/24 @ 16:38 by Juliana Okeefe APRN, HOURLY SALES STAFF) Nicotine dependence, cigarettes, uncomplicated Abdominal wall mass Female bladder prolapse B12 deficiency Depression Hyperlipidemia Osteopenia Obesity Thyroid nodule Hypothyroidism (~2014) Surgical History Hx of abdominal surgery (04/30/23) History of incisional hernia repair (12/11/22) Previous section Hx of laparoscopy History of partial hysterectomy (05/2022) History of colonoscopy History of foot surgery Hx of mammogram Hx of cholecystectomy Hx of tonsillectomy History of esophagogastroduodenoscopy (EGD) Family History Father Heart disease Mother Cardiomyopathy Goiter Maternal Grandfather Stomach cancer Social History Alcohol intake: current Alcohol intake frequency: does not drink Patient Tobacco Use Status: Current everyday Tobacco user Tobacco use type: Cigarette Cigarette Packs Per Day: 0.5 Cigarettes Per Day: 10.0 Years Smoked: 40 - onset 22, 1.5-2ppd x 40yrs, 60+PYH Second Hand Smoke Exposure: No Review of Systems Const Details: - Musculoskeletal: Reports pain in the hip, knee, groin, ankle, and sacroiliac region. - Neurological: Reports episodic electrical shock sensation from leg to head. - General: Denies head injury from the fall. - Integumentary: Reports swelling in the hip area. Physical Exam Vital Signs: Last Vital Signs Pulse 110 H 06/18/24 14:14 Resp 16 06/18/24 14:14 BP 142/82 H 06/18/24 14:14 Pulse Ox 96 06/18/24 14:14 Oxygen Delivery Method Room Air 06/18/24 14:14 BMI result Body Mass Index 33.6 Results Reviewed Results Reviewed: 11/16/23 XR/XR hip RT min 2V IMPRESSION: Normal right hip. 11/09/23 MR/MR lumbar spine wo con IMPRESSION: Lower lumbar facet arthropathy, worst at L5-S1. Otherwise unremarkable MRI of the lumbar spine. No significant spinal canal stenosis, neural foraminal narrowing, or evidence of nerve impingement. Assessment & Plan Assessment & Plan (1) Greater trochanteric bursitis of right hip: Code(s): M70.61 - Trochanteric bursitis, right hip Category: Medical (2) Chronic pain syndrome: Code(s): G89.4 - Chronic pain syndrome Category: Medical (3) Sacroiliac joint dysfunction of right side: Code(s): M53.3 - Sacrococcygeal disorders, not elsewhere classified Category: Medical (4) ITB syndrome: Code(s): M76.30 - Iliotibial band syndrome, unspecified leg Category: Medical Plan I suggested a diagnostic injection for sacroiliac joint dysfunction to ascertain its role in her symptomatology, planned under x-ray guidance to verify needle placement and efficacy of anesthetic relief. This will guide further management, potentially with steroids if indicated. I reassured her regarding the minimal risks and benefits of the procedure. Continued physical therapy focusing on pelvic alignment is advised, with instruction to maintain pain diaries to monitor symptom changes post-procedure. Upon procedural approval, scheduling will take place at the hospital's procedure unit. I thoroughly discussed with the patient the potential diagnosis of sacroiliac joint dysfunction and iliotibial band syndrome based on her presentation and the relief anticipated from a diagnostic injection. We covered the procedural aspects, including the use of numbing agents like lidocaine and ropivacaine, alongside minimal risk factors such as bleeding, infection, and lack of steroid-related complications. I explained the subsequent step of steroid use contingent on successful diagnostic relief, highlighting the procedural benefits of targeted symptom alleviation. Additionally, we discussed maintaining current medication regimens and incorporating physical therapy adjustments to enhance alignment and manage iliotibial band symptoms. I advised that she remain in contact for follow-up upon procedure outcome observation. Patient has exhausted conservative therapy including PT, home exercise program, prescription medications, with the current medications, nonsteroidal anti-inflammatory medications all without improvement of her symptoms. Will schedule for fluoroscopy guided right diagnostic sacroiliac joint injection with local anesthetic. Patient was informed and verbally consented to the use of an ambient scribe for clinic note documentation during this visit. Patient Instructions: - Await scheduling for the planned diagnostic injection at the hospital's procedure unit. - Continue physical therapy sessions, focusing on pelvic alignment. - Maintain a pain diary to track pain levels post-procedure. - Use heat application as necessary for symptom relief. - Report any significant changes in symptoms or increased pain promptly. Coding Level of Care Code New Pt Level 4 (10464) Complex EM visit Add On G2211 Diagnoses Greater trochanteric bursitis of right hip M70.61 Chronic pain syndrome G89.4 Sacroiliac joint dysfunction of right side M53.3 ITB syndrome M76.30
[2024-06-18 14:14] VITALS: BP 142/82; PULSE 110; RESP 16; O2SAT 96; BMI 33.6
--- OUTSIDE RECORDS SUMMARY | 2024-06-18 15:16 | XMS_ITS | Encounter Summary ---
Author Organization [employer] Address [address] 7t [place] [address] Care Team Providers Care Manufacturing Management Associate Name Role Phone Name, Krzysztof PERSON Primary Care Provider [phone] Reason for Visit * Reason Onset Date Comments Med Refill 06/11/2024 Encounter Details Date Type Department Care Team ([facility] st Contact Info) Description 06/11/2024 Refill [facility] [address] [place], [place] [phone] Name, MD Krzysztof [address] [place], [place] [phone] Lumbar back pain with radiculopathy affecting left lower extremity Social History Tobacco Use Types Packs/Day Years [...] is your housing situation today? I have andreaevy pruitt 05/29/[address] you [...] enough money to get more: Never True 04/ Transportation Answer Date Recorded In the past [...] Care Team (Late st Contact Info) Description 06/23/2024 3:30 PM EDT Clinical Support [facility] [address] [place] [address] documented as of this encounter Visit Diagnoses Diagnosis Lumbar back pain with radiculopathy affecting left lower extremity documented in this encounter Additional Health Concerns Assessment Noted Time PHQ-9 Depression Total Score: 0 05/29/19 24 9:06 AM EDT documented as of this encounter Care Teams Manufacturing Management Associate Relationship Specialty Start Date End Date Name, MD Krzysztof [address] [place] [address] PCP - General Family Medicine 02/12/18 documented as of this encounter
--- OUTSIDE RECORDS SUMMARY | 2024-06-18 15:16 | XMS_ITS | Encounter Summary ---
Demographics Address [address] [place] [address] Mobile Phone Home Phone Email Address Preferred Language en Marital Status Legally Church Affiliation Unknown Race White Ethnic Group Unknown Author Organization [employer] Address [address] [facility] 7t [place] [address] Care Team Providers Care Bulwark Carpenter Name Role Phone Name, Krzysztof PERSON Primary Care Provider [phone] Reason for Visit * Reason Onset Date Comments PA Clarification 12/19/2022 Prior Authorization 12/19/2022 Phenobarbita l Encounter Details Date Type Department Care Team ([facility] st Contact Info) Description 12/19/2022 Telephone [facility] [address] [place], [place] [phone] Name, MD Krzysztof [address] [place] [address] PA Clarification ; Prior Authorization (Phenobarbital) Social [...] 1:27 PM EST TW returned call to [facility], a clarification of dosage was needed and was corrected with information on in chart. [facility] determined that a PA was not needed for this medication and that the Pharmacy was to call the Pharmacy Help Desk at [phone]. Pharmacy was called and informed. * Telephone Encounter - Mauro Figueroa - 12/19/2022 11:53 AM EST Tc from Cam with [facility] requesting a call from a nurse or provider in regards to a PA form that was received. ( Did specify which medication) Cam states that in order to approve some verification and clarification most be revised. Please contact Cam at [phone] documented in this encounter Plan of Treatment Upcoming Encounters Date Type Department Care Team (Late st Contact Info) Description 06/23/2024 3:30 PM EDT Clinical Support [facility] [address] [place] [address] documented as of this encounter Visit Diagnoses Not on filedocumented in this encounter Care Teams Bulwark Carpenter Relationship Specialty Start Date End Date Name, MD Krzysztof [address] [place] [address] PCP - General Family Medicine 1/1/19 documented as of this encounter
--- OUTSIDE RECORDS SUMMARY | 2024-06-18 15:16 | XMS_ITS | Encounter Summary ---
Author Organization [employer] Address [address] [facility] [address] [place] [address] Care Team Providers Care Slunk Skin Curer Name Role Phone Name, Krzysztof PERSON Primary Care Provider [phone] Reason for Visit * Reason Onset Date Comments Med Refill 05/21/2024 Encounter Details Date Type Department Care Team ([facility] st Contact Info) Description 05/21/2024 Refill [facility] [address] [place], [place] [phone] Name, MD Krzysztof [address] [place], [place] [phone] Social History Tobacco Use Types Packs/Day Years [...] Description 06/23/2024 3:30 PM EDT Clinical Support [facility] [address] [place] [address] documented as of this encounter Visit Diagnoses Not on filedocumented in this encounter Additional Health Concerns Assessment Noted Time PHQ-9 Depression Total Score: 0 05/29/19 24 9:06 AM EDT documented as of this encounter Care Teams Slunk Skin Curer Relationship Specialty Start Date End Date Name, MD Krzysztof [address] [place] [address] PCP - General Family Medicine 02/12/18 documented as of this encounter
--- OUTSIDE RECORDS SUMMARY | 2024-06-18 15:16 | XMS_ITS | Encounter Summary ---
Author Organization [employer] Address [address] [facility] 7t [place] [address] Care Team Providers Care Sludge Control Attendant Name Role Phone Name, Krzysztof PERSON Primary Care Provider [phone] Encounter Details Date Type Department Care Team (Late st Contact Info) Description 08/31/2022 Orders Only [facility] [address] [place] [address] [phone] Name, MD Krzysztof [address] [place] [address] [phone] Subclinical hypothyroidism Social History Tobacco Use Types [...] Description 06/23/2024 3:30 PM EDT Clinical Support [facility] [address] [place] [address] [phone] documented as of this encounter Procedures Procedure Name Priority Date/Time Associated Diagnosis Comments TSH W/REFLEX TO FT4 Routine 08/31/2022 8:48 AM EDT Subclinical hypothyroidism documented in this encounter Results * (ABNORMAL) TSH W/Reflex to FT4 (08/31/2022 8:48 AM EDT) TSH reflex Free T4 4.39(H) 0.32 - 4.0 uIU/mL [facility] Blood 08/31/2022 8:48 AM EDT 08/31/2022 11:21 AM EDT us Krzysztof Name LAB BLOOD ORDERABLES Final Resul t [facility] [address] [place] [phone] documented in this encounter Visit Diagnoses Diagnosis Subclinical hypothyroidism Other specified acquired hypothyroidism documented in this encounter Care Teams Sludge Control Attendant Relationship Specialty Start Date End Date Name, MD Krzysztof [address] [place] [address] PCP - General Family Medicine 02/12/18 documented as of this encounter
--- OUTSIDE RECORDS SUMMARY | 2024-06-18 15:16 | XMS_ITS | Clinical Summary ---
Author Organization [facility] [address] [place] [address] [place] [phone] Phone Care Team Providers Care Emergency Services Director Name Role Phone Name, Krzysztof PERSON Primary Care Provider [phone] Allergies Active Allergy Reactions Criticality Noted Date [...] tablet Take 1 tablet by mouth. Active Surgical History Surgery Date Site/Laterality Comments OTHER [...] Mother a t the age of 66.goiter, INTERNATIONAL MARKETING COORDINATOR cancer ? Breast cancer Neg Hx Colon [...] Tdap) 12/10/2033 12/11/2023, 01/01/2013, 10/21/2008 RSV Immunization Adult Patients (1 - 1-dose 75+ series) 2037 Influenza [...] age to complete this topic Meningococcal B Vaccine Aged Out No l onger eligible based on patient's age to complete this topic RSV Immunization Patients Under 20 months Aged Out No longer eligible based on patient's age to complete this topic Varicella Vaccines Aged Out No longer eligible based on patient's age to complete this topic Procedures Procedure Name Priority Date/Time Associated Diagnosis Comments MG MAMMO DIGITAL SCREENING W DEVNE BILAT Routine 02/09/2024 8:44 AM EST Encounter for screening mammogram for breast cancer from Last 3 Months or Most Recently Relevant to Health Maintenance Results * MG Mammo Digital Screening w Deven bilat (02/09/2024 8:44 AM EST) Anatomical Region Laterality Modality Breast Bilateral Mammography 02/11/2024 7:32 PM EST Impressions 02/11/2024 7:33 PM EST No mammographic evidence of malignancy. BREAST DENSITY: B - There are scattered areas of fibroglandular density. BI-RADS CATEGORY: 1 - NEGATIVE RECOMMENDATION: Screening bilateral mammogram is recommended in 1 year. MAMMO LOCATION: [facility], [address] [place] [address], [address], . -------- FINAL REPORT -------- Dictated By: Ashli Tirado Dictated Date: 02/11/2024 19:32 ET Assigned Physician: Ashli Tirado Reviewed and Electronically Signed By: Ashli Tirado Signed Date: 02/11/2024 19:33 ET Workstation ID: [id number] Transcribed By: Self Edit Transcribed Date: 02/11/2024 [...] is recommended in 1 year. MAMMO LOCATION: [facility], [address] [place] [address], [address], . -------- FINAL REPORT -------- Dictated By: Ashli Tirado Dictated Date: 02/11/2024 19:32 ET Assigned Physician: Ashli Tirado Reviewed and Electronically Signed By: Ashli Tirado Signed Date: 02/11/2024 19:33 ET Workstation ID: [id number] Transcribed By: Self Edit Transcribed Date: 02/11/2024 19:32 ET us Krzysztof Name IMG BI PROCEDURES Final Result from Last 3 Months or Most Recently Relevant to Health Maintenance Insurance MEDICAID - [place] MEDICARE Care Teams Emergency Services Director Relationship Specialty Start Date End Date Name, MD Krzysztof [address] [place], [place] PCP - General Internal Medicine 12/22/10
--- OUTSIDE RECORDS SUMMARY | 2024-06-18 15:16 | XMS_ITS | Encounter Summary ---
Author Organization [employer] Address [address] 7t [place] [address] Care Team Providers Care Register In Chancery Name Role Phone Name, Krzysztof PERSON Primary Care Provider Encounter Details Date Type Department Care Team ([facility] st Contact Info) Description 09/20/2023 Orders Only [facility] [address] [place], [place] [phone] Angelica Kyle RN Vitamin B 12 deficiency [...] Description 06/23/2024 3:30 PM EDT Clinical Support [facility] 230 [place] [address] documented as of this encounter Procedures Procedure [...] EDT Narrative 09/28/2023 3:06 PM EDT ? [facility] ?[address] ?[place] [address] ?XRay Report ? Signed ? Patient: Robert,Tenisha V ?MR#: [id number] ?? 14 ? : 1960 ?Acct:[id number] ? Age/Sex: 62 / F ?ADM Date: 08/16/24 ? Loc: HO.ED ? Attending Dr: ? Ordering Physician: Tamica Bullard ?? Date of Service: 09/28/23 ?? Procedure(s): XR tibia fibula LT 2V ?? Accession Number(s): [id number] ? cc: Tamica Bullard; Name,Krzysztof PERSON ? [...] 1502 ? DD/ 1449 ? TD/TT: ? Cad Drafter: CB ? Procedure Note Loyter, Image - 09/28/2023 [place] [address] XRay Report Signed Patient: Tenisha Jones VMR#: [id number] 14 : 1960Acct:[id number] Age/Sex: 62 / FADM Date: 09/28/23 Loc: HO.ED Attending Dr: Ordering Physician: Tamica Bullard Date of Service: 09/28/23 Procedure(s): XR tibia fibula LT 2V Accession Number(s): [id number] cc: Tamica Bullard; Name,Krzysztof PERSON EXAMINATION: XR [...] DO inOV> 09/28/23 1502 DD/ 1449 TD/TT: Cad Drafter: CB us [facility] External Provider IMG XR PROCEDURES Final Result * XR Knee 4+ Views Right (09/28/2023 1:34 PM EDT) Anatomical Region Laterality Modality Lower Extremities, Knee Right Radiogra phic Imaging 09/28/2023 1:34 PM EDT Narrative 09/28/2023 3:13 PM EDT ? [facility] ?[address] ?[place], [place] [address] ?XRay Report ? Signed ? Patient: Robert,Tenisha V ?MR#: [id number] ?? 14 ? : 1960 ?Acct:[id number] ? Age/Sex: 62 / F ?ADM Date: 09/28/23 ? Loc: HO.ED ? Attending Dr: ? Ordering Physician: Nella Mercer ?? Date of Service: 09/28/23 ?? Procedure(s): XR knee RT 4V ?? Accession Number(s): [id number] ? cc: Krzysztof Martell MD; Nella Mercer [...] 1509 ? DD/ 1334 ? TD/TT: ? Cad Drafter: CB ? Procedure Note Jerzy, Tom - 09/28/2023 [place] [address] [place] [address] XRay Report Signed Patient: Tenisha Jones VMR#: [id number] 14 : 1960Acct:[id number] Age/Sex: 62 / FADM Date: 09/28/23 Loc: HO.ED Attending Dr: Ordering Physician: Nella Mercer Date of Service: 09/28/23 Procedure(s): XR knee RT 4V Accession Number(s): [id number] cc: Name,Krzysztof PERSON; Nella Mercer EXAMINATION: XR KNEE, RIGHT CLINICAL [...] DO inOV> 09/28/23 1509 DD/ 1334 TD/TT: Cad Drafter: TA [facility] External Provider IMG XR PROCEDURES Final Result documented in this encounter Visit Diagnoses Diagnosis Vitamin B 12 deficiency Other B-complex deficiencies documented in this encounter Additional Health Concerns Assessment Noted Time PHQ-9 Depression Total Score: 0 05/29/19 24 9:06 AM EDT documented as of this encounter Care Teams Register In Chancery Relationship Specialty Start Date End Date Name, MD Krzysztof [address] [place] [address] PCP - General Family Medicine 02/12/18 documented as of this encounter
--- OUTSIDE RECORDS SUMMARY | 2024-06-18 15:16 | XMS_ITS | Encounter Summary ---
Author Organization [employer] Address [address] 7[address] [place] [address] Care Team Providers Care Medical Psychotherapist Name Role Phone Name, Krzysztof PERSON Primary Care Provider [phone] Reason for Visit * Reason Onset Date Comments Durable Medical Equipment 02/21/2023 Encounter Details Date Type Department Care Team ([facility] st Contact Info) Description 02/21/2023 Telephone [facility] 230 [place], [place] [phone] Name, MD Krzysztof 230 [place], [place] [phone] Durable Medical Equipment Social History Tobacco Use [...] requesting script to be send to a [employer] that does deliver DME. documented in this encounter Plan of Treatment Upcoming Encounters Date Type Department Care Team (Late st Contact Info) Description 06/23/2024 3:30 PM EDT Clinical Support [facility] [address] [place] [address] documented as of this encounter Visit Diagnoses Not on filedocumented in this encounter Care Teams Medical Psychotherapist Relationship Specialty Start Date End Date Name, MD Krzysztof 230 [place] [address] PCP - General Family Medicine 02/12/18 documented as of this encounter
--- OUTSIDE RECORDS SUMMARY | 2024-06-18 15:16 | XMS_ITS | Encounter Summary ---
Author Organization [employer] Address [address] [place] [address] 7t [place] [address] Care Team Providers Care Dye House Wheel Operator Name Role Phone Name, Krzysztof PERSON Primary Care Provider [phone] Encounter Details Date Type Department Care Team ([facility] Contact Info) Description 07/14/2022 Abstract [facility] [address] [place] [phone] Name, MD Krzysztof 230 [place], [place] [phone] Social History Tobacco Use Types Packs/Day Years [...] Department Care Team (Late Contact Info) Description 06/23/2024 3:30 PM EDT Clinical Support [facility] [address] [place] [phone] documented as of this encounter Procedures Procedure [...] PM EST Recommended routine annual mammo ( [facility]) us Historical Provider HEALTH MAINTENANCE Edited Result - Final documented in this encounter Visit Diagnoses Not on filedocumented in this encounter Care Teams Dye House Wheel Operator Relationship Specialty Start Date End Date Name, MD Krzysztof [address] [place] [address] PCP - General Family Medicine 02/12/18 documented as of this encounter
--- OUTSIDE RECORDS SUMMARY | 2024-06-18 15:16 | XMS_ITS | Encounter Summary ---
Author Organization [employer] Address [address] [facility] 7t [place] [address] Care Team Providers Care Auto Parts Handler Name Role Phone Name, Krzysztof PERSON Primary Care Provider [phone] Reason for Visit * Reason Onset Date Comments Med Refill 05/21/2024 Encounter Details Date Type Department Care Team (Late st Contact Info) Description 05/21/2024 Refill [facility] [address] [place], [place] [phone] Odilia Niño FNP [address] [place] [address] Vitamin B 12 deficiency Social History Tobacco [...] Description 06/23/2024 3:30 PM EDT Clinical Support [facility] [address] [place] [address] documented as of this encounter Visit Diagnoses Diagnosis Vitamin B 12 deficiency Other B-complex deficiencies documented in this encounter Additional Health Concerns Assessment Noted Time PHQ-9 Depression Total Score: 0 05/29/19 24 9:06 AM EDT documented as of this encounter Care Teams Auto Parts Handler Relationship Specialty Start Date End Date Name, MD Krzysztof 230 [place] [address] PCP - General Family Medicine 02/12/18 documented as of this encounter
--- OUTSIDE RECORDS SUMMARY | 2024-06-18 15:16 | XMS_ITS | Encounter Summary ---
Author Organization [employer] Address [address] [place] [address] 7 [place] [address] Care Team Providers Care Heavy Duty Mechanic Name Role Phone Name, Krzysztof PERSON Primary Care Provider [phone] Encounter Details Date Type Department Care Team (Late st Contact Info) Description 07/01/2022 Orders Only [facility] [address] [place], [place] [phone] Nils Meza MD [address] [place], [place] [phone] Social History Tobacco Use Types Packs/Day Years [...] Description 06/23/2024 3:30 PM EDT Clinical Support [facility] 230 [place] [address] documented as of this encounter Visit Diagnoses Not on filedocumented in this encounter Care Teams Heavy Duty Mechanic Relationship Specialty Start Date End Date Name, MD Krzysztof 230 [place] [address] PCP - General Family Medicine 02/12/18 documented as of this encounter
--- OUTSIDE RECORDS SUMMARY | 2024-06-18 15:16 | XMS_ITS | Encounter Summary ---
Author Organization [employer] Address [address] [place] [address] 7t [place] [address] Care Team Providers Care Medical Grade Shoemaker Name Role Phone Name, Krzysztof PERSON Primary Care Provider [phone] Reason for Visit * Reason Onset Date Comments Med Refill 08/21/2022 Encounter Details Date Type Department Care Team (Late st Contact Info) Description 08/21/2022 Refill [facility] [address] [place] [phone] Name, MD Krzysztof [address] [place] [address] Social History Tobacco Use Types Packs/Day Years [...] Description 06/23/2024 3:30 PM EDT Clinical Support [facility] 230 [place] [address] documented as of this encounter Visit Diagnoses Not on filedocumented in this encounter Care Teams Medical Grade Shoemaker Relationship Specialty Start Date End Date Name, MD Krzysztof [address] [place] [address] PCP - General Family Medicine 02/12/18 documented as of this encounter
--- OUTSIDE RECORDS SUMMARY | 2024-06-18 15:16 | XMS_ITS | Clinical Summary ---
Demographics Address [address] [place] [address] Mobile Phone Home Phone Email Address Preferred Language en Marital Status Legally Christian Affiliation Unknown Race White Ethnic Group Unknown Author Organization [employer] Address [address] [place] [address] 7t [place] [address] Care Team Providers Care Ssis Architect Name Role Phone Name, Krzysztof PERSON Primary Care Provider [phone] Allergies Active Allergy Reactions Criticality Noted Date [...] sprays into affected nostril(s) at bed time. Active folic acid (Folvite) 1 MG tablet [...] 100 mg by mouth 2 times daily. Active omeprazole OTC (PriLOSEC OTC) 20 MG [...] Do not swallow. 1 each 5 024 Active levothyroxine (Synthroid, Levoxyl) 50 MCG tablet TAKE 1 TABLET (50 MCG) BY MOUTH BEFORE BREAKFAST 90 tablet 3 024 2024 Active mometasone (Elocon) 0.1 % ointment Apply topically Once per day. 45 g 2 024 2024 Active docusate sodium (Colace) 100 MG capsule Take 1 capsule (100 mg) by mouth 2 times daily. 180 capsule 1 024 Active Multiple Vitamin (multivitamin) capsuleIndicat ions:Tiredness Take [...] EVERY DAY 90 tablet 3 025 Active Probiotic, Lactobacillus, capsule Take 1 capsule by mouth 2 times daily. 60 capsule 2 025 Active loratadine (Claritin) 10 MG tablet TAKE 1 TABLET BY MOUTH EVERY DAY 90 tablet 1 025 Active HYDROcodone-ac etaminophen (Hilham) 5-325 MG tabletIndicati ons:Pain Take 1 tablet by mouth every 6 (six) hours if needed for severe pain. 28 tablet 025 Active loratadine (Claritin) 10 MG tablet TAKE 1 TABLET BY MOUTH EVERY DAY 90 tablet 1 024 2024 Discontinued(R eorder (will not trigger notification to Pharmacy)) HYDROcodone-ac etaminophen (Hilham) 5-325 MG tabletIndicati ons:Pain Take 1 tablet by mouth every 6 (six) hours if needed for severe pain. 2024 Discontinued(R eorder (will not trigger notification to Pharmacy)) HYDROcodone-ac etaminophen (Hilham) 5-325 MG tabletIndicati ons:Pain Take 1 tablet by mouth every 6 (six) hours if needed for severe pain. 28 tablet 025 2024 Discontinued(R eorder (will not trigger notification [...] Encounters Date Type Department Care Team Description 06/12/2024 Telephone [facility] [place] [address] Krzysztof Martell MD 06/12/2024 Orders Only [facility] [address] [place] [address] Krzysztof Martell MD Lumbar back pain with radiculopathy affecting left lower extremity 06/11/2024 Refill [facility] [place] [address] Krzysztof Martell MD Lumbar back pain with radiculopathy affecting left lower extremity 05/27/2024 Orders Only [facility] [place] [address] Krzysztof Martell MD Trochanteric bursitis of right hip (Primary Dx); Chronic hip pain, unspecified laterality 05/22/2024 3:00 PM EDT Clinical Support [facility] [place] [address] Yvonne Danielson, SAMRA 05/22/2024 Travel 05/22/2024 Refill [facility] [place] [address] Krzysztof Martell MD Lumbar back pain with radiculopathy affecting left lower extremity (Primary Dx) 05/22/2024 Refill [facility] [address] [facility] [place] [address] Krzysztof Martell MD 05/21/2024 Refill [facility] [place] [address] Krzysztof Martell MD 05/21/2024 Refill [facility] [address] 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); Acquired hypothyroidism; Trochanteric bursitis of right hip; Otitis externa of right ear, unspecified chronicity, unspecified type 04/25/2024 Population Health Risk Score [facility] ([facility]) Department [address] [place] [phone] Provider, Population Health Generic 04/25/2024 Travel 04/12/2024 Refill [facility] [address] [place] [address] Name, MD Krzysztof Anxiety 04/12/2024 Refill [facility] [address] [place] [address] Odilia Niño FNP Vitamin B 12 deficiency; Anxiety 04/04/2024 11:00 AM EST Clinical Support [facility] [address] [place] [address] Chitra Madrid, SAMRA Vitamin B 12 deficiency 04/03/2024 Travel from Last 3 Months Immunizations Name [...] Sign Reading Time Taken Comments Blood Pressure 132/94 05/22/2024 3:27 PM EDT Pulse 81 05/22/2024 3:26 PM EDT Temperature 36.7 ??C (98 ??F) 05/22/2024 3:26 PM EDT Respiratory Rate 18 05/22/2024 3:26 PM EDT Oxygen Saturation 96% 05/22/2024 3:26 PM EDT Inhaled Oxygen Concentration - - Weight 92.5 kg (204 lb) 04/25/2024 10:10 AM EDT Height 167.6 cm (5' 6 ) 12/11/2023 9:04 AM EDT Body Mass Index 32.93 12/11/2023 9:04 AM EDT Plan of Treatment Upcoming Encounters Date Type Department Care Team (Late st Contact Info) Description 06/23/2024 3:30 PM EDT Clinical Support [address] [phone] Health Maintenance Due Date Last Done Comments [...] 05/28/2024 05/29/2023 Alcohol/Substance Use Screening 09/11/2024 09/12/2023 Mammogram 02/08/2025 02/09/2024, 01/13, 01/03/2022 Tobacco Screening 04/25/2025 04/25/2024 Colonoscopy 08/24/2026 08/24/2016 Colorectal Cancer Screening 08/24/2026 [...] Procedure Name Priority Date/Time Associated Diagnosis Comments LIPID PANEL, STANDARD Routine 06/29/2022 7:58 AM EDT Hyperlipidemia, unspecified hyperlipidemia type NSAID long-term use Cobalamin deficiency Acquired hypothyroidism PAP/HPV Routine 05/09/2022 12:00 AM EDT MAMMOGRAPHY Routine 01/03/2022 2:56 PM EST COLONOSCOPY Routine 08/24/2016 from Last 3 Months or Most Recently Relevant to Health Maintenance Results * (ABNORMAL) Lipid Panel, Standard (06/29/2022 7:58 AM EDT) Cholesterol, Total 267(H) <200 mg/dL [facility] HDL Cholesterol 52 > OR = 50 mg/dL [facility] [place] [facility] Triglycerides 151(H) <150 mg/dL [facility] [place] [facility] LDL Cholesterol 185(H) mg/dL (calc) [facility] [place] [facility] Comment: Reference range: <100 Desirable range <100 mg/dL for primary prevention; ?? <70 mg/dL for patients with CHD or diabetic patients with > or = 2 CHD risk factors. LDL-C is now calculated using the Leora calculation, which is a validated novel method providing better accuracy than the Friedewald equation in the estimation of LDL-C. Ankur ALMANZAR et al. JOSE ALEJANDRO. 2013;310(19): 9233-3681 (http://education.[employer].UXFLIP/faq/UFP547) Chol/HDLC Ratio 5.1(H) <5.0 (calc) [facility] Non-HDL Cholesterol 215(H) <130 mg/dL (calc) [facility] Comment: For patients with diabetes plus 1 major ASCVD risk factor, treating to a non-HDL-C goal of <100 mg/dL (LDL-C of <70 mg/dL) is considered a therapeutic option. Blood Venous blood specimen / Unknown 06/29/2022 7:58 AM EDT 06/29/2022 7:58 AM EDT Narrative [facility] - 06/29/2022 10:32 PM EDT FASTING:YES FASTING: YES Krzysztof Martell MD LAB BLOOD ORDERABLES Final Resul t [facility] [address], [place] [address] [facility] [place] [facility] [address] [place] [address] * Pap Smear (05/09/2022 12:00 AM EDT) Historical Provider HEALTH MAINTENANCE Final Result * Mammography (01/03/2022 2:56 PM EST) Mammogram Birads-1 Anatomical Region Laterality Modality Other Narrative 01/03/2022 2:56 PM EST Recommended routine annual mammo ( [facility]) Historical Provider HEALTH MAINTENANCE Edited Result - Final * Colonoscopy (08/24/2016) Colonoscopy performed Historical Provider HEALTH MAINTENANCE Final Result from Last 3 Months or Most Recently Relevant to Health Maintenance Insurance * Guarantor: Tenisha Jones V Account Type Relation to Patient Date of Phone Billing Address Personal/Family Self 1960 [address] [place] [address] MEDICARE [facility] STANDARD Care Teams Ssis Architect Relationship Specialty Start Date End Date Name, MD Krzysztof [address] [place] [address] [place] [address] PCP - General Family Medicine 02/12/18
--- OUTSIDE RECORDS SUMMARY | 2024-06-18 15:16 | XMS_ITS | Encounter Summary ---
Author Organization [employer] Address [address] [facility] 7t [place] [address] Care Team Providers Care Punch Finisher Name Role Phone Name, Krzysztof PERSON Primary Care Provider [phone] Encounter Details Date Type Department Care Team (Late st Contact Info) Description 01/18/2022 Abstract [facility] [address] [place], [place] [phone] Name, MD Krzysztof [address] [place] [address] [phone] Social History Tobacco Use Types Packs/Day Years [...] 3:30 PM EDT Clinical Support [facility] [address] [place] [address] [phone] documented as of this encounter Visit Diagnoses Not on filedocumented in this encounter Care Teams Punch Finisher Relationship Specialty Start Date End Date Name, MD Krzysztof [address] [place] [address] PCP - General Family Medicine 02/12/18 documented as of this encounter
== END 2024-06-18 14:43 | disposition home or self-care (01) ==
PROVIDERS: PCP Internal Medicine Geriatric Medicine; Referring Provider Internal Medicine Geriatric Medicine; Visit Provider Registered Nurse Emergency
DX: M70.61 Trochanteric bursitis, right hip (principal); G89.4 Chronic pain syndrome; M53.3 Sacrococcygeal disorders, not elsewhere classified; M76.30 Iliotibial band syndrome, unspecified leg
CPT/HCPCS: 99204; G2211

== ENCOUNTER → 2024-06-18 13:59 | Outpatient (BNVA) | payer MEDICARE, MEDICAID, SELFPAY | PROVIDERS: PCP Internal Medicine Geriatric Medicine; Referring Provider Internal Medicine Geriatric Medicine; Visit Provider Registered Nurse Emergency | DX: M70.61 Trochanteric bursitis, right hip (principal); M53.3 Sacrococcygeal disorders, not elsewhere classified; M76.30 Iliotibial band syndrome, unspecified leg; G89.4 Chronic pain syndrome | CPT/HCPCS: 99202 ==

== ENCOUNTER 2024-07-10 12:56 | Outpatient (RCR) | payer MEDICARE, MEDICAID, SELFPAY ==
--- NOTE | 2024-05-06 15:07 | MHC.PT.EP ---
[facility] [place] Office [place] Office [place] Office [address] Rich[address] K[address] [phone] F: [phone] F: [phone] F: [phone] F: [phone] Physical Therapy Plan of Care Date of Evaluation: 05/06/24 Date of Surgery: Diagnosis: trochanteric bursitis B hips Assessment: 63 y/o female referred to PT with trochanteric bursitis resulting in pain and difficulty with ascend/descending stairs, walking, standing, don/doffing shoes, and getting in/out of car. Examination shows decreased R hip ROM, decreased R hip strength, pain, impaired gait pattern and altered SI mechanics. Recommend PT 2x/week for 5/weeks to address impairments, implement HEP, and optimize functional mobility. Frequency and Duration: The patient will be seen 2x/week for 5 weeks Short Term Goals: 3weeks I with HEP Carbide Grinder Goals: 5 weeks I with HEp and self management of sx Pt will be able to ascend/descend stairs in step though pattern Pt will be able to walk > 15 minutes with pain < 3/10 Treatment Plan: Modalities to reduce pain, spasms and effusion. Manual therapy to restore motion and function. Therapeutic exercise to improve strength and flexibility. Neuromuscular re-education for posture and balance. Therapeutic activities to return to functional activities of daily living. Electronically signed by: Helena Weber PT Please sign and return to therapist. Thank you for your referral.
--- NOTE | 2024-08-11 07:38 | MHC.PT.DC ---
[facility] [place] Office [place] Office [place] Office [address] Vira Khoury [address] [phone] F: [phone] F: [phone] F: [phone] F: [phone] Physical Therapy Discharge Report Diagnosis: trochanteric bursitis B hips Date of Surgery: DOI 09/20/23 Date of Evaluation: 05/06/24 Date of Discharge: 08/11/24 Treatments to Date: 11 Cancellations to Date: 3 No Shows to Date: 1 Discharge Status: Independent with HEP Patient Elected to Stop Recommend MD Follow-up Discharge Summary: Throughout course of PT, she had minimal improvement in regards to pain levels. However her bed mobility, trasnfers, and gait pattern improved with smoother transitions, less compensatory movements, and less analgia noted. She was I with HEP and at this time, she will f/u with MD regarding continued pain. Electronically signed by: Helena Weber PT Please sign and return to therapist. Thank you for your referral.
== END 2024-08-11 07:39 | disposition home or self-care (01) ==
LOC: HO.PT 12:56
PROVIDERS: PCP Internal Medicine Geriatric Medicine; Visit Provider Orthopaedic Surgery
DX: M70.61 Trochanteric bursitis, right hip (principal)
CPT/HCPCS: 97035; 97110; 97140; 97162

== ENCOUNTER → 2024-09-15 18:18 | Outpatient (BNV) | payer MEDICARE, MEDICAID, SELFPAY | PROVIDERS: PCP Internal Medicine Geriatric Medicine; Visit Provider Radiology Diagnostic Radiology | DX: S73.191A Other sprain of right hip, initial encounter (principal) | CPT/HCPCS: 73721 ==

== ENCOUNTER 2024-09-15 18:32 | Outpatient (REF) | payer MEDICARE, MEDICAID, SELFPAY ==
--- NOTE | ~2024-09-15 | MR_ITS ---
EXAMINATION: MRI of the right hip was performed without contrast TECHNIQUE: Multiplanar multisequence MR imaging through a lower extremity joints was performed without intra-articular contrast INDICATION: Since falling on September 20, 2023, right lateral hip region tenderness and pain extending to the thigh Prior: X-ray November 16, 2023 FINDINGS: Labrum: There is intermediate and high linear signal in the anterior hip labrum at 2:00 and a small paralabral cyst consistent with a tear. Articular Cartilage/Joint fluid: There is mild to moderate thinning of articular cartilage in the posterior hip joint, acetabulum greater than femoral head. Ligament/Muscle/Tendon: There is fluid signal encircling the distal right gluteus minimus tendon. The tendon is thickened and frayed with increased signal. Gluteus medius tendon is intact. There is fluid in the adjacent greater trochanteric bursa measuring 6 mm in thickness. Ligament of teres is intact. Hamstring tendon is intact. There is no muscle edema. There is diffuse mild fatty streaking of the musculature. Neurovascular: Major neurovascular structures are unremarkable and symmetrical. Deep and superficial soft tissues: Uterus is not visualized and likely surgically absent. There is no intrapelvic mass or ascites. Visualized bowel is grossly unremarkable. Subcutaneous soft tissues are within normal limits. There is no adenopathy. Bones/Marrow: Bone marrow signal is physiologic. SI joints are symmetrical without erosions, or ankylosis. Pubic symphysis joint is unremarkable. MR/MR hip RT wo con IMPRESSION: Anterior right hip labral tear at 2:00. Grade 2 strain of distal gluteus medius and minimus tendon and adjacent greater trochanteric bursal effusion. 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 Electronically signed by: Inocencio Piper MD 09/16/2024 10:00 AM EDT
== END 2024-09-15 18:33 | disposition home or self-care (01) ==
LOC: HO.MRI 18:32
PROVIDERS: PCP Internal Medicine Geriatric Medicine; Visit Provider Nurse Practitioner Family
DX: M25.551 Pain in right hip (principal); M71.9 Bursopathy, unspecified
CPT/HCPCS: 73721

== ENCOUNTER 2024-10-20 13:56 | Outpatient (RCR) | payer MEDICARE, MEDICAID, SELFPAY | END 2024-11-20 08:41 | disposition home or self-care (01) | LOC: HO.PT 13:56 | PROVIDERS: PCP Internal Medicine Geriatric Medicine; Visit Provider Internal Medicine Geriatric Medicine | DX: M70.61 Trochanteric bursitis, right hip (principal); S73.191S Other sprain of right hip, sequela | CPT/HCPCS: 97110; 97162 ==

== ENCOUNTER 2024-10-24 20:18 | Emergency (ER) | payer MEDICARE, MEDICAID, SELFPAY ==
[2024-10-24 20:22] VITALS: BP 138/88; PULSE 67; O2SAT 97
[2024-10-24 20:24] VITALS: BP 159/86; PULSE 77; RESP 18; TEMP 36.8; O2SAT 97; BMI 36.0
--- OUTSIDE RECORDS SUMMARY | 2024-10-24 20:44 | XMS_ITS | Encounter Summary ---
Author Organization [employer] Address [address] 7t [place] [address] Care Team Providers Care Painter Plate Name Role Phone Name, Krzysztof PERSON Primary Care Provider [phone] Encounter Details Date Type Department Care Team ([facility] st Contact Info) Description 09/16/2024 Results Follow-Up [facility]INE [address] [place] [address] Trina August, ANNE [address] [place] [address] MR Hip w/o Contrast Right Social History Tobacco Use Types Packs/Day Years Used Date Smoking Tobacco: Every Day Cigarettes Smokeless Tobacco: Current Alcohol Use Standard Drinks/Week Comments Yes 0 (1 standard drink = 0.6 oz pur e alcohol) occassionally Depression Answer Date Recorded Patient Health Questionnaire-9 Score 15 09/05/2024 Patient Health Questionnaire-9 Score 15 09/05/2024 Last PHQ-9: Questionnaire Data Not on file 0 09/05/2024 Housing Stability Answer Date Recorded What is your housing situation today? I have andrea pruitt 09/05/[address] you li ve. Do you have problems with any of the following? Water leaks;Mold 09/05/2024 Food Insecurity Answer Date Recorded Within the past 12 months, y ou worried that your food would run out before you got money to buy more: Sometimes True 2024 Within the past 12 months,th e food you bought just didn't last and you didn't have enough money to get more: Sometimes True 09/05/2024 Transportation Answer Date Recorded In the past 12 months, has l ack of transportation kept you from medical appts, meetings, work or from getting things needed for daily living? No 09/05/2024 Utilities Answer Date Recorded In the past 12 months, has t he electric, gas, oil or water company threatened to shut off services in your home? No 09/05/2024 Depression Answer Date Recorded Patient Health Questionnaire-2 Score 5 09/05/2024 Internet Access Answer Date Recorded Internet Access Q1 Yes 09/05/2024 Internet Access Q2 Not on file 09/05/2024 Comments Unknown Sex and Gender Information Value Date Recorded Sex Assigned at Female 12/12/2021 10:29 AM EDT Legal Sex Female 10:29 AM EDT Gender Identity Female 12/12/2021 10:29 AM EDT Sexual Orientation Straight 12/12/2021 10 :29 AM EDT documented as of this encounter Plan of Treatment Upcoming Encounters Date Type Department Care Team (Late st Contact Info) Description 10/28/2024 11:30 AM EDT Clinical Support [address] [address] 11/10/2024 1:30 PM EDT Clinical Support [facility] [address] [place] [address] Keely Person, SAMRA documented as of this encounter Visit Diagnoses Not on filedocumented in this encounter Additional Health Concerns Assessment Noted Time PHQ-9 Depression Total Score: 15 025 3:53 PM EDT documented as of this encounter Care Teams Painter Plate Relationship Specialty Start Date End Date Name, MD Krzysztof [address] [place] [address] PCP - General Family Medicine 02/12/18 documented as of this encounter
--- OUTSIDE RECORDS SUMMARY | 2024-10-24 20:44 | XMS_ITS | Clinical Summary ---
Author Organization [facility] [address] [place] [address] [place] [phone] Phone Care Team Providers Care Tile Installer Name Role Phone Name, Krzysztof PERSON Primary Care Provider [phone] Allergies Active Allergy Reactions Criticality Noted Date [...] Mother a t the age of 66.goiter, SEWER cancer ? Breast cancer Neg Hx Colon [...] 3 3 Date Outcome GA Total Labor Labor//3rd Weight Sex Type Anes PTL Anni A1 [...] Years (1 of 2 - PCV) 1981 Cervical Cancer Screening: HPV 12/21/1983 Zoster Vaccines (1 of 2) 2012 Colorectal Cancer Screening: Colonoscopy 01/21/2022 HIV Screening 01/21/2022 Hepatitis C Screening 01/21/2022 Medicare Annual Wellness Visit 01/21/2022 Social Influencers of Health Screening 01/21/2022 Depression Screening 02/13/2024 COVID-19 Vaccine ( season) 2024 01/18/2022, 03/02/2021, 05/19/2020, Additional history exists Influenza Vaccine (#1) 2024 4, 11/28/2022, 11/01/2021, Additional history exists Breast Cancer Screening 02/08/2026 02/09/20 24, 01/06/2023, 12/31/2021, Additional history exists Cholesterol Screening (Lipid Panel) 06/30/2027 06/29/2022 DTaP,Tdap,and Td Vaccines (4 - Td or Tdap) 12/10/2033 12/11/2023, 01/01/2013, 10/21/2008 RSV Immunization Adult Patients (1 - 1-dose 75+ series) 2037 HIB Vaccines Aged Out No longer eligi [...] Diagnosis Comments MG MAMMO DIGITAL SCREENING W DEVEN BILAT [...] is recommended in 1 year. MAMMO LOCATION: [facility], [address] [place] [address], [phone], . -------- FINAL REPORT -------- Dictated By: Ashli Tirado Dictated Date: 02/11/2024 19:32 ET Assigned Physician: Ashli Tirado Reviewed and Electronically Signed By: Ashli Tirado Signed Date: 02/11/2024 19:33 ET Workstation ID: [id number] Transcribed By: Self Edit Transcribed Date: 02/11/2024 [...] is recommended in 1 year. MAMMO LOCATION: [facility], [address] [place] [address], [address], . -------- FINAL REPORT -------- Dictated By: Ashli Tirado Dictated Date: 02/11/2024 19:32 ET Assigned Physician: Ashli Tirado Reviewed and Electronically Signed By: Ashli Tirado Signed Date: 02/11/2024 19:33 ET Workstation ID: [id number] Transcribed By: Self Edit Transcribed Date: 02/11/2024 19:32 ET Krzysztof Martell MD IMG BI PROCEDURES Final Result from Last 3 Months or Most Recently Relevant to Health Maintenance Insurance MEDICAID - [place] MEDICARE Care Teams Tile Installer Relationship Specialty Start Date End Date Name, MD Krzysztof [address] [place], [place] PCP - General Internal Medicine 12/22/10
--- OUTSIDE RECORDS SUMMARY | 2024-10-24 20:44 | XMS_ITS | Encounter Summary ---
Author Organization [employer] Address [address] [facility] 7t [place] [address] Care Team Providers Care Marine Painter Name Role Phone Name, Krzysztof PERSON Primary Care Provider [phone] Reason for Visit * Reason Onset Date Comments Med Refill 05/21/2024 Encounter Details Date Type Department Care Team ([facility] st Contact Info) Description 05/21/2024 Refill [facility] [address] [place], [place] [phone] Name, MD Krzysztof 230 [place] [address] Social History Tobacco Use Types Packs/Day Years [...] Description 10/28/2024 11:30 AM EDT Clinical Support [address] [address] 11/10/2024 1:30 PM EDT Clinical Support [address] [address] Keely Person, RN documented as of this encounter Visit Diagnoses Not on filedocumented in this encounter Additional Health Concerns Assessment Noted Time PHQ-9 Depression Total Score: 0 05/29/19 24 9:06 AM EDT documented as of this encounter Care Teams Marine Painter Relationship Specialty Start Date End Date Name, MD Krzyzstof [address] [place] [phone] PCP - General Family Medicine 02/12/18 documented as of this encounter
--- OUTSIDE RECORDS SUMMARY | 2024-10-24 20:44 | XMS_ITS | Encounter Summary ---
Author Organization [employer] Address [address] [facility] 7t [place] [address] Care Team Providers Care Hackler Doll Wigs Name Role Phone Name, Krzysztof PERSON Primary Care Provider [phone] Reason for Visit * Reason Onset Date Comments Med Refill 05/21/2024 Encounter Details Date Type Department Care Team (Late st Contact Info) Description 05/21/2024 Refill [facility] [address] [place] [address] Odilia Niño FNP [address] [place] [address] Vitamin B 12 deficiency Social History Tobacco [...] Description 10/28/2024 11:30 AM EDT Clinical Support [address] [address] 11/10/2024 1:30 PM EDT Clinical Support [address] [address] Keely Person, SAMRA documented as of this encounter Visit Diagnoses Diagnosis Vitamin B 12 deficiency Other B-complex deficiencies documented in this encounter Additional Health Concerns Assessment Noted Time PHQ-9 Depression Total Score: 0 05/29/19 24 9:06 AM EDT documented as of this encounter Care Teams Hackler Doll Wigs Relationship Specialty Start Date End Date Name, MD Krzysztof [address] [place] [phone] PCP - General Family Medicine 02/12/18 documented as of this encounter
--- OUTSIDE RECORDS SUMMARY | 2024-10-24 20:44 | XMS_ITS | Encounter Summary ---
Author Organization [employer] Address [address] [facility] 7t [place] [address] Care Team Providers Care Licensed Practical Nurse Name Role Phone Name, Krzysztof PERSON Primary Care Provider [phone] Reason for Visit * Reason Onset Date Comments Med Refill 09/04/2024 Encounter Details Date Type Department Care Team ([facility] st Contact Info) Description 09/04/2024 Refill [facility] MED[facility]INE 230 [place], [place] [phone] Name, MD Krzysztof [address] [place] [address] Social History Tobacco Use Types Packs/Day Years [...] AM EDT documented as of this encounter Functional Status * Over the past 2 weeks, how often have you been bothered by any of the following problems? Question Answer Date of Assessment Author Patient Health Questionnaire -2 Score 5 09/05/2024 3:53 PM EDT Jeanie Osman MA * Little interest or pleasure in doing things Answer Date of Assessment Author Nearly every day 09/05/2024 3:53 PM EDT Jeanie Osman MA * Feeling down, depressed, or hopeless Answer Date of Assessment Author More than half the days 09/05/2024 3:53 PM EDT Jeanie Mullen MA * Trouble falling or staying asleep, or sleeping too much Answer Date of Assessment Author Nearly every day 09/05/2024 3:53 PM EDT Jeanie Osman MA * Feeling tired or having little energy Answer Date of Assessment Author Nearly every day 09/05/2024 3:53 PM EDT Jeanie Osman MA * Poor appetite or overeating Answer Date of Assessment Author More than half the days 09/05/2024 3:53 PM EDT Jeanie Mullen MA * Feeling bad about yourself - or that you are a failure or have let yourself or your family down Answer Date of Assessment Author Not at all 09/05/2024 3:53 PM EDT Sandro Osman MA * Trouble concentrating on things, such as reading the newspaper or watching television Answer Date of Assessment Author More than half the days 09/05/2024 3:53 PM EDT Jeanie Mullen MA * Moving or speaking so slowly that other people could have noticed? Or the opposite - being so fidgety or restless that you have been moving around a lot more than usual. Answer Date of Assessment Author Not at all 09/05/2024 3:53 PM LOUIST Sandro Osman MA * Thoughts that you would be better off or hurting yourself in some way Answer Date of Assessment Author Not at all 09/05/2024 3:53 PM Sandro Mckenzie MA * Patient Health Questionnaire-9 Score Answer Date of Assessment Author 15 09/05/2024 3:53 PM Sandro Mckenzie MA * How difficult have these problems made it for you to do your work, take care of things at home, or get along with other people? Answer Date of Assessment Author Very difficult 09/05/2024 3:53 PM Sandro Mckenzie MA * Over the last 2 weeks, how often have you been bothered by any of the following problems? Question Answer Date of Assessment Author Feeling nervous, anxious, or on edge 0 09/05/2024 3:53 PM LOUIST Jeanie Osman MA Not being able to stop or co ntrol worrying 2 09/05/2024 3:53 PM LOUIST Jeanie Osman MA Worrying too much about diff erent things 2 09/05/2024 3:53 PM EDT Jeanie Osman MA Trouble relaxing 2 09/05/2024 3:53 PM EDT Jeanie Mullen MA Being so restless that it is hard to sit still 3 09/05/2024 3:53 PM Jeanie Mckenzie MA Becoming easily annoyed or irritable 2 09/05/2024 3:53 PM LOUIST Jeanie Osman MA Feeling afraid as if somethi ng awful might happen 0 09/05/2024 3:53 PM Jeanie Mckenzie MA SOLO-7 Total Score 11 09/05/2024 3:53 PM EDT Jeanie Osman MA documented as of this encounter Plan of Treatment Upcoming Encounters Date Type Department Care Team (Late st Contact Info) Description 10/28/2024 11:30 AM EDT Clinical Support [address] [address] 11/10/2024 1:30 PM EDT Clinical Support [address] [address] Keely Person, SAMRA documented as of this encounter Visit Diagnoses Not on filedocumented in this encounter Additional Health Concerns Assessment Noted Time PHQ-9 Depression Total Score: 0 05/29/19 24 9:06 AM EDT documented as of this encounter Care Teams Licensed Practical Nurse Relationship Specialty Start Date End Date Name, MD Krzysztof [address] [place] [id number] PCP - General Family Medicine 02/12/18 documented as of this encounter
--- OUTSIDE RECORDS SUMMARY | 2024-10-24 20:45 | XMS_ITS | Encounter Summary ---
Author Organization [employer] Address [address] [facility] 7 [place] [address] Care Team Providers Care Business Teacher Name Role Phone Name, Krzysztof PERSON Primary Care Provider [phone] Encounter Details Date Type Department Care Team (Late st Contact Info) Description 08/31/2022 Orders Only [facility] MEDICINE [address] [place] [phone] Name, MD Krzysztof [address] [place] [phone] Subclinical hypothyroidism Social History Tobacco Use Types [...] Description 10/28/2024 11:30 AM EDT Clinical Support [facility] [address] [place] [address] 11/10/2024 1:30 PM EDT Clinical Support [facility] [address] [place] [address] Keely Person RN documented as of this encounter Procedures Procedure Name Priority Date/Time Associated Diagnosis Comments TSH W/REFLEX TO FT4 Routine 08/31/2022 8:48 AM EDT Subclinical hypothyroidism documented in this encounter Results * (ABNORMAL) TSH W/Reflex to FT4 (08/31/2022 8:48 AM EDT) TSH reflex Free T4 4.39(H) 0.32 - 4.0 uIU/mL [facility] Blood 08/31/2022 8:48 AM EDT 08/31/2022 11:21 AM EDT us Krzysztof Martell MD LAB BLOOD ORDERABLES Final Resul t Performing Organization Address City/State/[facility] Co de Phone Number [facility] [address] [place] [phone] documented in this encounter Visit Diagnoses Diagnosis Subclinical hypothyroidism Other specified acquired hypothyroidism documented in this encounter Care Teams Business Teacher Relationship Specialty Start Date End Date Name, MD [place] [address] PCP - General Family Medicine 02/12/18 documented as of this encounter
--- OUTSIDE RECORDS SUMMARY | 2024-10-24 20:45 | XMS_ITS | Encounter Summary ---
Author Organization [employer] Address [address] [facility] 7t [place] [address] Care Team Providers Care Administration Manager Name Role Phone Name, Krzysztof PERSON Primary Care Provider [phone] Reason for Visit * Reason Onset Date Comments Med Refill 06/11/2024 Encounter Details Date Type Department Care Team ([facility] st Contact Info) Description 06/11/2024 Refill [facility] MED[facility]INE 230 [place], [place] [phone] Name, MD Krzysztof [address] [place] [address] Lumbar back pain with radiculopathy affecting left [...] Description 10/28/2024 11:30 AM EDT Clinical Support [address] [address] 11/10/2024 1:30 PM EDT Clinical Support [address] [address] Keely Person, SAMRA documented as of this encounter Visit Diagnoses Diagnosis Lumbar back pain with radiculopathy affecting left lower extremity documented in this encounter Additional Health Concerns Assessment Noted Time PHQ-9 Depression Total Score: 0 05/29/19 24 9:06 AM EDT documented as of this encounter Care Teams Administration Manager Relationship Specialty Start Date End Date Name, MD Krzysztof [address] [place] [phone] PCP - General Family Medicine 02/12/18 documented as of this encounter
--- OUTSIDE RECORDS SUMMARY | 2024-10-24 20:45 | XMS_ITS | Encounter Summary ---
Author Organization [employer] Address [address] [place] [address] 7 [place] [address] Care Team Providers Care Bell Clerk Name Role Phone Name, Krzysztof PERSON Primary Care Provider Encounter Details Date Type Department Care Team ([facility] st Contact Info) Description 01/18/[address] [facility] MEDICINE [address] [place] [address] Name, MD Krzysztof 230 [place] [address] Social History Tobacco Use Types Packs/Day Years [...] AM EST documented as of this encounter Functional Status * Over the past 2 weeks, how often have you been bothered by any of the following problems? Question Answer Date of Assessment Author Little interest or pleasure in doing things Not at all 01/18/2022 10:31 AM Tatyana Puente MA Feeling down, depressed, or hopeless Not at all 01/18/2022 10:31 AM Tatyana Puente MA Patient Health Questionnaire -2 Score 0 01/18/2022 10:31 AM Tatyana Puente MA documented as of this encounter Plan of Treatment Upcoming Encounters Date Type Department Care Team (Late st Contact Info) Description 10/28/2024 11:30 AM EDT Clinical Support [address] [address] 11/10/2024 1:30 PM EDT Clinical Support [address] [address] Keely Person, SAMRA documented as of this encounter Visit Diagnoses Not on filedocumented in this encounter Care Teams Bell Clerk Relationship Specialty Start Date End Date Name, MD Krzysztof [address] [place] [phone] PCP - General Family Medicine 02/12/18 documented as of this encounter
--- OUTSIDE RECORDS SUMMARY | 2024-10-24 20:45 | XMS_ITS | Encounter Summary ---
Author Organization [employer] Address [address] [facility] [address] 7[address] [place] [address] Care Team Providers Care Education Consultant Name Role Phone Name, Krzysztof PERSON Primary Care Provider [phone] Reason for Visit * Reason Onset Date Comments Durable Medical Equipment 02/21/2023 Encounter Details Date Type Department Care Team ([facility] st Contact Info) Description 02/21/2023 Telephone [facility]INE 230 [place], [place] [phone] Name, MD Krzysztof 230 [place], [place] [phone] Durable Medical Equipment Social History Tobacco Use [...] requesting script to be send to a [employer] that does deliver DME. documented in this encounter Plan of Treatment Upcoming Encounters Date Type Department Care Team (Late st Contact Info) Description 10/28/2024 11:30 AM EDT Clinical Support [facility] [address] [place] [phone] 11/10/2024 1:30 PM EDT Clinical Support [facility] [address] [place] [address] Keely Person, SAMRA documented as of this encounter Visit Diagnoses Not on filedocumented in this encounter Care Teams Education Consultant Relationship Specialty Start Date End Date Name, MD Krzysztof [address] [place] [address] PCP - General Family Medicine 02/12/18 documented as of this encounter
--- OUTSIDE RECORDS SUMMARY | 2024-10-24 20:45 | XMS_ITS | Clinical Summary ---
Author Organization [employer] Address [address] [place] [address] [address] [place] [address] Care Team Providers Care Station Cleaning Porter Name Role Phone Name, Krzysztof PERSON Primary Care Provider [phone] Allergies Active Allergy Reactions Criticality Noted Date [...] Itching Low 04/21/2005 Other reaction(s): Itching Medications folic acid (Folvite) 1 MG tablet Take 1 tablet by mouth at bed time. 022 Active ketotifen (Zaditor) 0.025 % ophthalmic solution Administer 1 drop into affected eye(s) every 12 (twelve) hours. 018 Active loperamide (Imodium) 2 MG capsule take 2 capsule by oral route after 1st loose stool, followed by 1 capsule after each subsequent loose stool not to exceed 8mg per day 018 Active melatonin tablet One tab once a bedtime Active trimethoprim-niesha ymyxin b (Polytrim) ophthalmic solution Administer 1 drop into affected eye(s) every 6 (six) hours. 022 Active albuterol (Ventolin HFA) 108 (90 Base) MCG/ACT inhalerIndicatio ns:Wheeze TAKE 2 PUFFS BY MOUTH EVERY 4 TO 6 HOURS IF NEEDED 18 g 1 023 Active doxycycline (Vibra-Tabs) 100 MG tablet Take 100 mg by mouth 2 times daily. 023 Active Mometasone Furoate (Asmanex HFA) 100 MCG/ACT aerosolIndicatio ns:Cough, unspecified type,Wheezing INHALE 1 PUFF BY MOUTH TWICE A DAY. RINSE MOUTH WITH WATER AFTER USE TO REDUCE AFTERTASTE AND INCIDENCE OF CANDIDIASIS. DO NOT SWALLOW. 13 g 2 024 Active fluticasone furoate (Arnuity Ellipta) 100 MCG/ACT inhaler Inhale 1 puff in the morning. Rinse mouth with water after use to reduce aftertaste and incidence of candidiasis. Do not swallow. 1 each 5 Active Multiple Vitamin (multivitamin) capsuleIndicatio ns:Tiredness Take 1 capsule by mouth Once per day. 30 capsule 024 2024 Active cholecalciferol (Vitamin D-3) 25 MCG (1000 UT) capsuleIndicatio ns:Vitamin D deficiency Take 1 capsule (25 mcg) by mouth Once per day. 30 capsule 024 2024 Active cyanocobalamin (Vitamin B-12) 1000 MCG/ML injectionIndicat ions:Vitamin B 12 deficiency INJECT 1 ML INTRAMUSCULARLY EVERY MONTH 3 mL 3 Active PARoxetine (Paxil) 10 MG tabletIndication s:Anxiety TAKE 1 TABLET BY MOUTH EVERY DAY 90 tablet 3 Active levothyroxine (Synthroid, Levoxyl) 50 MCG tabletIndication s:Acquired hypothyroidism Take 1 tablet (50 mcg) by mouth before breakfast. 90 tablet 3 025 2025 Active polyethylene glycol, PEG, 3350 (Glycolax) 17 GM/SCOOP powderIndication s:Irritable bowel syndrome with both constipation and diarrhea DISSOLVE 17 GRAMS IN 8 OZ OF FLUID LIQUID DRINK DAILY DIRECTED 238 g 2 Active docusate sodium (Colace) 100 MG capsule TAKE 1 CAPSULE BY MOUTH TWICE A DAY 180 capsule 1 Active Probiotic, Lactobacillus, capsule Take 1 capsule by mouth 2 times daily. TAKE 1 CAPSULE BY MOUTH TWICE A DAYTake 1 capsule by mouth 2 times daily. 60 capsule 2 Active PHENobarbital-hy oscyamine-atropi ne-scopoloamine () 16.2 MG tablet TAKE 1 TABLET BY MOUTH THREE TIMES A DAY 21 tablet Active loratadine (Claritin) 10 MG tablet TAKE 1 TABLET BY MOUTH EVERY DAY 90 tablet 1 Active naloxone (Narcan) 4 mg/0.1 mL nasal sprayIndications :Lumbar back pain with radiculopathy affecting left lower extremity Administer 1 spray (4 mg) into affected nostril(s) if needed for opioid reversal. May repeat every 2-3 minutes if needed, alternating nostrils, until medical assistance becomes available. 2 each 3 025 2025 Active fluticasone (Flonase) 50 MCG/ACT nasal spray SPRAY 1 TO 2 SPRAYS INTO EACH NOSTRIL EVERY DAY 48 g Active omeprazole OTC (PriLOSEC OTC) 20 MG EC tablet Take 1 tablet (20 mg) by mouth before breakfast. Do not crush, chew, or split. 30 tablet 11 025 2025 Active tiZANidine (Zanaflex) 2 MG tablet Take 1 tablet (2 mg) by mouth at bedtime. 30 tablet 025 2024 Active omeprazole OTC (PriLOSEC OTC) 20 MG EC tablet Take 1 tablet (20 mg) by mouth before breakfast. Do not crush, chew, or split. 30 tablet 11 023 2024 Discontinued( Reorder (will not trigger notification to Pharmacy)) mometasone (Elocon) 0.1 % ointment Apply topically Once per day. 45 g 2 024 2024 HYDROcodone-acet aminophen (Valentine) 5-325 MG tabletIndication s:Pain Take 1 tablet by mouth every 6 (six) hours if needed for severe pain for up to 28 days. 112 tablet 025 2024 celecoxib (CeleBREX) 200 MG capsule Take 1 capsule (200 mg) by mouth 2 times daily for 20 days. 40 capsule 025 2024 Discontinued( Patient refused) ibuprofen 800 MG tablet Take 1 tablet (800 mg) by mouth if needed in the morning, at noon, and at bedtime for moderate pain for up to 20 days. 60 tablet 025 2024 Hospital, Clinic, or Other Facility Administered Medication Ordered Dose Route Frequency Start Date End Date Status cyanocobalamin (Vitamin B-12) injection 1,000 mcgIndications:Cobalamin deficiency 1000 mcg IM Every 30 days 02/10/2022 Active cyanocobalamin (Vitamin B-12) injection 1,000 mcgIndications:Cobalamin deficiency 1000 mcg IM Every 30 days 08/17/2022 Active cyanocobalamin (Vitamin B-12) injection 1,000 mcgIndications:Vitamin B 12 deficiency 1000 mcg IM Every 30 days 08/22/2023 Active cyanocobalamin (Vitamin B-12) injection 1,000 mcgIndications:Vitamin B 12 deficiency 1000 mcg IM Every 30 days 08/22/2024 Active Active Problems Problem Noted Date Diagnosed Date Right hip pain 09/05/2024 Assessment & Plan (10/19/2024 7:17 PM EDT): Pt with chronic right hip pain, now interfering with activity and gait, has pursued physical therapy, reasonable to order MRI Long-term current use of opiate analgesic 2024 Ulcerative rectosigmoiditis without complication 09/12/2023 Abnormal bowel [...] 01/07/2018 10/12/2022 Vaginal pessary in situ 07/21/2016 060 03/2022 Midline cystocele 01/27/2016 07/14/2022 Overview (07/14/2022): [...] Encounters Date Type Department Care Team Description 10/17/2024 2:00 PM EDT Office Visit [facility] [address] [place] [phone] Name, MD Krzysztof Chronic right hip pain (Primary Dx); NSAID long-term use; Hypothyroidism, unspecified type; Encounter for immunization 10/17/2024 Travel 10/16/2024 Telephone [facility] [address] [place] [address] Name, MD Krzysztof Chart Prep 09/25/2024 3:30 PM EDT Clinical Support [facility] [address] [place] [address] Chitra Madrid, SAMRA Vitamin B 12 deficiency 09/25/2024 Travel 09/18/2024 Orders Only [facility] [place] [phone] Krzysztof Martell MD Tear of right acetabular labrum, sequela (Primary Dx); Trochanteric bursitis of right hip 09/16/2024 Travel 09/16/2024 Telephone [facility] [place] [phone] Krzysztof Martell MD Med Refill 09/16/2024 Refill [facility] [place] [place] [phone] Trina August NP Irritable bowel syndrome with both constipation and diarrhea 09/16/2024 Results Follow-Up [facility] [place] [phone] Trina August NP MR Hip w/o Contrast Right 09/05/2024 3:45 PM EDT Office Visit [facility] [place] [phone] Trina August NP Right hip pain (Primary Dx) 09/05/2024 Travel 09/04/2024 Refill [facility] [place] [phone] Krzysztof Martell MD 09/04/2024 Refill [facility] [place] [address] Trina August NP Irritable bowel syndrome with both constipation and diarrhea 09/04/2024 Travel 09/04/2024 Telephone [facility] [place] [address] Trina August NP Chart Prep 09/03/2024 2:00 PM EDT Clinical Support [facility] [place] [phone] Keely Person, SAMRA Long-term current use of opiate analgesic (Primary Dx) 09/03/2024 Refill [facility] [place] [phone] Keely Person, RN Lumbar back pain with radiculopathy affecting left lower extremity 09/03/2024 Travel 09/03/2024 Telephone [facility] [address] [place] [phone] Keely Person, RN 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 08/28/2024 Travel 08/23/2024 Refill [facility] [address] [place] [phone] Krzysztof Martell MD 08/22/2024 9:30 AM EDT Clinical Support [facility] [address] [place] [phone] Yvonne Danielson, SAMRA Vitamin B 12 deficiency 08/22/2024 Travel 08/21/2024 Refill [facility] [address] [place] [address] Trina August NP 08/21/2024 Refill [facility] [address] [place] [phone] Trina August NP Irritable bowel syndrome with both constipation and diarrhea; Lumbar back pain with radiculopathy affecting left lower extremity 08/21/2024 Refill [facility] [address] [place] [address] Odilia Niño FNP Vitamin B 12 deficiency 08/21/2024 Refill [facility] [address] [place] [phone] Krzysztof Martell MD Vitamin B 12 deficiency 08/21/2024 Travel 08/21/2024 Orders Only [facility] [address] [place] [phone] NameKrzysztof MD Vitamin B 12 deficiency (Primary Dx) 07/29/2024 Telephone [facility] [address] [place] [phone] Keely Person, RN Reinstate on AIRCRAFT ENGINE SPECIALIST; Schedule [employer]CRA[employer] ENGINE SPECIALIST Renewal appt from Last 3 Months Immunizations Immunization Administration Dates Next Due Influenza injectable quadriv alent IIV4 with preservative 11/06/2017,11/20/2016,11/25/2015 Influenza injectable quadriv alent preservative free 11/28/2022,11/01/2021,11/19/2020,10/27,10/31/2018 Influenza, IIV3, injectable 11/26/2020, 4 Influenza, seasonal, injecta ble, preservative free 12/11/2023,12/08/2014 Moderna Covid-19 Vaccine 12+ 03/02/2021,05/20/19 21,04/21/2020 Moderna Covid-19 Vaccine 6+ Bivalent 01/18/2022 PPD Test 03/21/2001,03/19/2001 Pneumococcal Conjugate PCV 20 10/17/2024 Rabies, intramuscular 01/04/2013,01/01/2013 Td (adult), 5 Lf tetanus tox oid, preservative free, adsorbed 01/01/2013 Tdap 12/11/2023,10/21/2008 Social History Tobacco Use Types Packs/Day Years Used Date Smoking Tobacco: Every Day Cigarettes Smokeless Tobacco: Current Tobacco Cessation:Ready to Q uit: Not Asked; Counseling Given: Not Answered Alcohol Use Standard Drinks/Week Comments Yes 0 (1 standard drink = 0.6 oz pur e alcohol) occassionally Alcohol Answer Date Recorded How often do you have a drink containing alcohol ? 0 10/17/2024 How many drinks containing a lcohol do you have on a typical day when you are drinking? 0 10/17/2024 How often do you have six or more drinks on one occasion? 0 10/17/2024 Depression Answer Date Recorded Patient Health Questionnaire-9 [...] Sign Reading Time Taken Comments Blood Pressure 128/80 10/17/2024 1:53 PM EDT Pulse 103 10/17/2024 1:53 PM EDT Temperature 36.3 C (97.4 F) 10/17/2024 1:53 PM EDT Respiratory Rate 25 10/17/2024 1:53 PM EDT Oxygen Saturation 93% 10/17/2024 1:53 PM EDT Inhaled Oxygen Concentration - - Weight 98.5 kg (217 lb 3.2 oz) 10/17/2024 1:53 P M EDT Height 167.6 cm (5' 6 ) 10/17/2024 1:53 PM EDT Body Mass Index 35.06 10/17/2024 1:53 PM EDT Plan of Treatment Upcoming Encounters Date Type Department Care Team (Late st Contact Info) Description 10/28/2024 11:30 AM EDT Clinical Support [facility] [address] [place] [phone] 11/10/2024 1:30 PM EDT Clinical Support [facility] [address] [place] [phone] Keely Person, SAMRA Health Maintenance Due Date Last Done Comments CT Colonography 1960 FIT DNA/Cologuard 1960 FIT 1960 FOBT 1960 HIV Screening 1960 Sigmoidoscopy 1960 Hepatitis C Screening 1980 Zoster Vaccines (1 of 2) 2012 COVID-19 Vaccine ( season) 2024 01/18/2022, 03/02/2021, 05/19/2020, Additional history exists Influenza Vaccine (#1) 2024 , 11/28/2022, 11/01/2021, Additional history exists Mammogram 02/08/2025 02/09/2024, 01/13, 01/03/2022 Depression Monitoring 03/08/2025 09/05/2024, 025 Disability Screening 09/05/2025 09/05/2024 SDOH Screening 09/05/2025 09/05/2024 Alcohol/Substance Use Screening 10/17/2025 10/17/2024 Tobacco Screening 10/17/2025 10/17/2024 Colonoscopy 08/24/2026 08/24/2016 Colorectal Cancer Screening 08/24/2026 Cervical Cancer Screening 05/10/2027 HPV/Cotest 05/10/2027 Pap Smear 05/10/2027 05/09/2022 Lipid Panel 06/30/2027 06/29/2022, 04/12, 10/27/2020, Additional history exists DTaP/Tdap/Td Vaccines (4 - Td or Tdap) 12/10/2033 12/11/2023, 01/01/2013, 10/21/2008 RSV Patients and Patients Aged 60 years or older (1 - 1-dose 75+ series) 2037 Pneumococcal Vaccine: 50+ Years Completed 10/17/2024 HIB Vaccines Aged Out No longer eligi [...] Procedure Name Priority Date/Time Associated Diagnosis Comments MR HIP WO CONTRAST RIGHT Routine 09/15/2024 6:40 PM EDT Right hip pain POCT MAINOR-14 URINE DRUG SCREEN Routine 09/03/2024 2:21 PM EDT Long-term current use of opiate analgesic LIPID PANEL, STANDARD Routine 06/29/2022 7:58 AM EDT Hyperlipidemia, unspecified hyperlipidemia type NSAID long-term use Cobalamin deficiency Acquired hypothyroidism HM PAP/HPV Routine 05/09/2022 12:00 AM EDT HM MAMMOGRAPHY Routine 01/03/2022 2:56 PM EST HM COLONOSCOPY Routine 08/24/2016 from Last 3 Months or Most Recently Relevant to Health Maintenance Results * MR Hip w/o Contrast Right (09/15/2024 6:40 PM EDT) Anatomical Region Laterality Modality Magnetic Resonan ce 09/15/2024 6:40 PM EDT Narrative 09/16/2024 10:03 AM EDT [place] [address] Magnetic Resonance Report Signed Patient: Tenisha Jones V MR#: [id number] 14 : 1960 Acct:[id number] Age/Sex: 63 / F ADM Date: 09/15/24 Loc: HO.MRI Attending Dr: Trina August NP Ordering Physician: Trina August NP Date of Service: 09/15/24 Procedure(s): MR hip RT wo con Accession Number(s): [id number] cc: Trina August NP; Name,Krzysztof PERSON EXAMINATION: MRI of the right hip was performed without contrast TECHNIQUE: Multiplanar multisequence MR imaging through a lower extremity joints was performed without intra-articular contrast INDICATION: Since falling on September 20, 2023, right lateral hip region tenderness and pain extending to the thigh Prior: X-ray November 16, 2023 FINDINGS: Labrum: There is intermediate and high linear signal in the anterior hip labrum at 2:00 and a small paralabral cyst consistent with a tear. Articular Cartilage/Joint fluid: There is mild to moderate thinning of articular cartilage in the posterior hip joint, acetabulum greater than femoral head. Ligament/Muscle/Tendon: There is fluid signal encircling the distal right gluteus minimus tendon. The tendon is thickened and frayed with increased signal. Gluteus medius tendon is intact. There is fluid in the adjacent greater trochanteric bursa measuring 6 mm in thickness. Ligament of teres is intact. Hamstring tendon is intact. There is no muscle edema. There is diffuse mild fatty streaking of the musculature. Neurovascular: Major neurovascular structures are unremarkable and symmetrical. Deep and superficial soft tissues: Uterus is not visualized and likely surgically absent. There is no intrapelvic mass or ascites. Visualized bowel is grossly unremarkable. Subcutaneous soft tissues are within normal limits. There is no adenopathy. Bones/Marrow: Bone marrow signal is physiologic. SI joints are symmetrical without erosions, or ankylosis. Pubic symphysis joint is unremarkable. MR/MR hip RT wo con IMPRESSION: Anterior right hip labral tear at 2:00. Grade 2 strain of distal gluteus medius and minimus tendon and adjacent greater trochanteric bursal effusion. 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 Electronically signed by: Inocencio Piper MD 09/16/2024 10:00 AM EDT Dictated By: Inocencio Piper MD Signed By: <Electronically signed by Inocencio Ppier MD in OV> 09/16/24 1000 DD/ 1840 TD/TT: 09/15/24 1858 Bulk Intake Worker: Procedure Note Donotuseinterpreter, Image - 09/16/[address] [address] Magnetic Resonance Report Signed Patient: Tenisha Jones VMR#: [id number] 14 : 1960Acct:[id number] Age/Sex: 63 / FADM Date: 09/15/24 Loc: HO.MRI Attending Dr: Trina August NP Ordering Physician: Trina August NP Date of Service: 09/15/24 Procedure(s): MR hip RT wo con Accession Number(s): [id number] cc: Trina August CUSTOMER RELATIONS ADVISOR; Name,Krzysztof PERSON EXAMINATION: MRI of the right hip was performed without contrast TECHNIQUE: Multiplanar multisequence MR imaging through a lower extremity joints was performed without intra-articular contrast INDICATION: Since falling on September 20, 2023, right lateral hip region tenderness and pain extending to the thigh Prior: X-ray November 16, 2023 FINDINGS: Labrum: There is intermediate and high linear signal in the anterior hip labrum at 2:00 and a small paralabral cyst consistent with a tear. Articular Cartilage/Joint fluid: There is mild to moderate thinning of articular cartilage in the posterior hip joint, acetabulum greater than femoral head. Ligament/Muscle/Tendon: There is fluid signal encircling the distal right gluteus minimus tendon. The tendon is thickened and frayed with increased signal. Gluteus medius tendon is intact. There is fluid in the adjacent greater trochanteric bursa measuring 6 mm in thickness. Ligament of teres is intact. Hamstring tendon is intact. There is no muscle edema. There is diffuse mild fatty streaking of the musculature. Neurovascular: Major neurovascular structures are unremarkable and symmetrical. Deep and superficial soft tissues: Uterus is not visualized and likely surgically absent. There is no intrapelvic mass or ascites. Visualized bowel is grossly unremarkable. Subcutaneous soft tissues are within normal limits. There is no adenopathy. Bones/Marrow: Bone marrow signal is physiologic. SI joints are symmetrical without erosions, or ankylosis. Pubic symphysis joint is unremarkable. MR/MR hip RT wo con IMPRESSION: Anterior right hip labral tear at 2:00. Grade 2 strain of distal gluteus medius and minimus tendon and adjacent greater trochanteric bursal effusion. 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 Electronically signed by: Inocencio Piper MD 09/16/2024 10:00 AM EDT Dictated By: Inocencio Piper MD Signed By: <Electronically signed by Inocencio Piper MD in OV> 09/16/24 1000 DD/ 1840 TD/TT: 09/15/24 1858 Bulk Intake Worker: Trina August NP IMG MRI PROCEDURES Edited Result - Final * POCT MAINOR-14 Urine Drug Screen (09/03/2024 2:21 PM EDT) THC Negative Negative Cocaine Screen, Urine Negative Negative Opiate Screen, Urine Negative Negative Methamphetamine Screen Urine Negative Negative Amphetamine Screen, Urine Negative Negative Benzodiazepines Screen, Urine Negative Negative Barbiturate Screen, Urine Negative Negative Methadone Screen, Urine Negative Negative Buprenophine Screen, Urine Negative Negative TCA, Urine Negative Negative MDMA Urine Negative Negative ng/mL Oxycodone Screen, Urine Negative Negative Phencyclidine (PCP), Urine Negative Negative Propoxyphene, Urine Negative Negative Fentanyl, Urine Negative Negative Urine Urine specimen obtained by clean catch procedure / Unknown 09/03/2024 2:21 PM EDT eKely Dunbar RN - 09/03/2024 2:21 PM EDT UTOX cup Lot#[id number] Exp. 11/18/25 Internal Pass Control Krzysztof Martell MD POINT OF CARE TEST ENTER/EDIT OR DERABLES Final Result * (ABNORMAL) Lipid Panel, Standard (06/29/2022 7:58 AM EDT) Cholesterol, Total 267(H) <200 mg/dL [facility] HDL Cholesterol 52 > OR = 50 mg/dL [facility] Triglycerides 151(H) <150 mg/dL [facility] LDL Cholesterol 185(H) mg/dL (calc) [facility] Comment: Reference range: <100 Desirable range <100 mg/dL for primary prevention; <70 mg/dL for patients with CHD or diabetic patients with > or = 2 CHD risk factors. LDL-C is now calculated using the Leora calculation, which is a validated novel method providing better accuracy than the Friedewald equation in the estimation of LDL-C. Ankur ALMANZAR et al. JOSE ALEJANDRO. 2013;310(19): 6389-7296 (http://education.Relive/faq/EKZ290) Chol/HDLC Ratio 5.1(H) <5.0 (calc) [facility] Non-HDL Cholesterol 215(H) <130 mg/dL (calc) [facility] Comment: For patients with diabetes plus 1 major ASCVD risk factor, treating to a non-HDL-C goal of <100 mg/dL (LDL-C of <70 mg/dL) is considered a therapeutic option. Blood Venous blood specimen / Unknown 06/29/2022 7:58 AM EDT 06/29/2022 7:58 AM EDT Narrative [facility] - 06/29/2022 10:32 PM EDT FASTING:YES FASTING: YES Krzysztof aMrtell MD LAB BLOOD ORDERABLES Final [facility] [employer] [address] [place] [address], [place] [address] [facility] [address] [place] [address] * Pap Smear (05/09/2022 12:00 AM EDT) Result [facility] Historical Provider HEALTH MAINTENANCE Final Result * Mammography (01/03/2022 2:56 PM EST) Mammogram Birads-1 Anatomical Region Laterality Modality Other Narrative 01/03/2022 2:56 PM EST Recommended routine annual mammo ( [facility]) Result [facility] Historical Provider HEALTH MAINTENANCE Edited Result - Final * Colonoscopy (08/24/2016) Colonoscopy performed Historical Provider HEALTH MAINTENANCE Final Result from Last 3 Months or Most Recently Relevant to Health Maintenance Insurance * Guarantor: Tenisha Jones V Account Type Relation to Patient Date of Phone Billing Address Personal/Family Self 1960 [address] [place] [address] MEDICARE [facility] STANDARD * Guarantor: Tenisha Jones V Account Type Relation to Patient Date of Phone Billing Address Personal/Family Self 1960 [address] [place] [address] * Guarantor: Tenisha Jones V Account Type Relation to Patient Date of Phone Billing Address Personal/Family Self 1960 [address] [place] [address] * Guarantor: Robert Tenisha V Account Type Relation to Patient Date of Phone Billing Address Personal/Family Self 1960 [address] [place] [address] Care Teams Station Cleaning Porter Relationship Specialty Start Date End Date Name, MD Krzysztof [address] [place] [address] PCP - General Family Medicine 02/12/18
--- OUTSIDE RECORDS SUMMARY | 2024-10-24 20:45 | XMS_ITS | Encounter Summary ---
Author Organization [employer] Address [address] [facility] [address] [place] [address] Care Team Providers Care Research Investigator Name Role Phone Name, Krzysztof PERSON Primary Care Provider [phone] Encounter Details Date Type Department Care Team (Late Contact Info) Description 07/14/2022 Abstract [facility] [address] [place] [phone] Name, MD Krzysztof [address] [place] [phone] Social History Tobacco Use Types Packs/Day Years [...] Description 10/28/2024 11:30 AM EDT Clinical Support [facility] [address] [place] [phone] 11/10/2024 1:30 PM EDT Clinical Support [facility] [address] [place] [address] Keely Person, SAMRA documented as of this encounter Procedures Procedure [...] PM EST Recommended routine annual mammo ( [facility]) Historical Provider HEALTH MAINTENANCE Edited Result - Final documented in this encounter Visit Diagnoses Not on filedocumented in this encounter Care Teams Research Investigator Relationship Specialty Start Date End Date Name, MD [facility] [place] [address] PCP - General Family Medicine 02/12/18 documented as of this encounter
--- OUTSIDE RECORDS SUMMARY | 2024-10-24 20:45 | XMS_ITS | Encounter Summary ---
Author Organization [employer] Address [address] [facility] 7 [place] [address] Care Team Providers Care Systems Program Manager Name Role Phone NameKrzysztof MD Primary Care Provider [phone] Reason for Visit * Reason Onset Date Comments PA Clarification 12/19/2022 Prior Authorization 12/19/2022 Phenobarbita l Encounter Details Date Type Department Care Team ([facility] st Contact Info) Description 12/19/2022 Telephone [facility] MEDICINE [address] [place] [address] Name, MD Krzysztof [address] [place] [address] PA Clarification ; Prior Authorization (Phenobarbital) Social [...] 1:27 PM EST TW returned call to [facility], a clarification of dosage was needed and was corrected with information on in chart. [facility] determined that a PA was not needed for this medication and that the Pharmacy was to call the Pharmacy Help Desk at [phone]. Pharmacy was called and informed. * Telephone Encounter - Mauro Figueroa - 12/19/2022 11:53 AM EST Tc from Cam with [facility] requesting a call from a nurse or provider in regards to a PA form that was received. ( Did specify which medication) Cam states that in order to approve some verification and clarification most be revised. Please contact Cam at [phone] documented in this encounter Plan of Treatment Upcoming Encounters Date Type Department Care Team (Late st Contact Info) Description 10/28/2024 11:30 AM EDT Clinical Support [facility] MEDICINE [address] [place] [address] 11/10/2024 1:30 PM EDT Clinical Support [facility] MEDICINE [address] [place] [address] Keely Person RN documented as of this encounter Visit Diagnoses Not on filedocumented in this encounter Care Teams Systems Program Manager Relationship Specialty Start Date End Date Name, MD Krzysztof [address] [place] [address] PCP - General Family Medicine 02/12/18 documented as of this encounter
--- OUTSIDE RECORDS SUMMARY | 2024-10-24 20:45 | XMS_ITS | Encounter Summary ---
Author Organization [employer] Address [address] [facility] 7t [place] [address] Care Team Providers Care Bleach Maker Name Role Phone Name, Krzysztof PERSON Primary Care Provider [phone] Reason for Visit * Reason Onset Date Comments Med Refill 08/21/2024 Encounter Details Date Type Department Care Team ([facility] st Contact Info) Description 08/21/2024 Refill [facility] CHC MED & PEDS [address] [place], [place] [phone] Odilia Niño, LYNNETTE [address] [place] [address] Vitamin B 12 deficiency Social History Tobacco [...] Description 10/28/2024 11:30 AM EDT Clinical Support [address] [address] 11/10/2024 1:30 PM EDT Clinical Support [address] [address] Keely Person, SAMRA documented as of this encounter Visit Diagnoses Diagnosis Vitamin B 12 deficiency Other B-complex deficiencies documented in this encounter Additional Health Concerns Assessment Noted Time PHQ-9 Depression Total Score: 0 05/29/19 24 9:06 AM EDT documented as of this encounter Care Teams Bleach Maker Relationship Specialty Start Date End Date Name, MD Krzysztof [address] [place] [address] PCP - General Family Medicine 02/12/18 documented as of this encounter
--- OUTSIDE RECORDS SUMMARY | 2024-10-24 20:45 | XMS_ITS | Encounter Summary ---
Author Organization [employer] Address [address] [facility] [address] 7t [place] [address] Care Team Providers Care Legal Arbitrator Name Role Phone Name, Krzysztof PERSON Primary Care Provider [phone] Encounter Details Date Type Department Care Team ([facility] st Contact Info) Description 09/20/2023 Orders Only [facility] MEDICINE [address] [place] [address] Angelica Kyle RN Vitamin B 12 deficiency [...] Description 10/28/2024 11:30 AM EDT Clinical Support [facility] MED[facility]INE [address] [place] [address] 11/10/2024 1:30 PM EDT Clinical Support [address] [address] Keely Person RN documented as of this [...] PM EDT Narrative 09/28/2023 3:06 PM EDT [address] [address] XRay Report Signed Patient: Tenisha Jones V MR#: [id number] 14 : 1960 Acct:[id number] Age/Sex: 62 / F ADM Date: 09/28/23 Loc: .ED Attending Dr: Ordering Physician: Tamica Bullard Date of Service: 09/28/23 Procedure(s): XR tibia fibula LT 2V Accession Number(s): [id number] cc: Tamica Bullard; Name,Krzysztof PERSON EXAMINATION: XR [...] <Electronically signed by Charly Jackson Jr, DO in OV> 09/28/23 1502 DD/ 1449 TD/TT: Mission Analyst: TA Procedure Note Donotuseinterpreter, Image - 09/28/2023 [place] [address] XRay Report Signed Patient: Tenisha Jones VMR#: [id number] 14 : 1960Acct:[id number] Age/Sex: 62 / FADM Date: 09/28/23 Loc: HO.ED Attending Dr: Ordering Physician: Tamica Bullard Date of Service: 09/28/23 Procedure(s): XR tibia fibula LT 2V Accession Number(s): [id number] cc: Tamica Bullard; Krzysztof Martell MD EXAMINATION: XR TIBIA AND FIBULA, LEFT CLINICAL [...] DO inOV> 09/28/23 1502 DD/ 1449 TD/TT: Mission Analyst: TA us [facility] External Provider IMG XR PROCEDURES Final Result * XR Knee 4+ Views Right (09/28/2023 1:34 PM EDT) Anatomical Region Laterality Modality Lower Extremities, Knee Right Radiogra phic Imaging 09/28/2023 1:34 PM EDT Narrative 09/28/2023 3:13 PM EDT [address] [address] XRay Report Signed Patient: Tenisha Jones V MR#: [id number] 14 : 1960 Acct:[id number] Age/Sex: 62 / F ADM Date: 09/28/23 Loc: HO.ED Attending Dr: Ordering Physician: Nella Mercer Date of Service: 09/28/23 Procedure(s): XR knee RT 4V Accession Number(s): [id number] cc: Name,Krzysztof PERSON; Nella Mercer EXAMINATION: XR [...] <Electronically signed by Charly Jackson Jr, DO in OV> 09/28/23 1509 DD/ 1334 TD/TT: Mission Analyst: TA Procedure Note Donotuseinterpreter, Image - 09/28/[address] [address] XRay Report Signed Patient: Tenisha Jones VMR#: [id number] 14 : 1960Acct:[id number] Age/Sex: 62 / FADM Date: 09/28/23 Loc: HO.ED Attending Dr: Ordering Physician: Nella Mercer Date of Service: 09/28/23 Procedure(s): XR knee RT 4V Accession Number(s): [id number] cc: Krzysztof Martell MD; Nella Mercer EXAMINATION: [...] By: <Electronically signed by Charly Jackson Jr, inOV> 09/28/23 1509 DD/ 1334 TD/TT: Mission Analyst: TA [facility] External Provider IMG XR PROCEDURES Final Result documented in this encounter Visit Diagnoses Diagnosis Vitamin B 12 deficiency Other B-complex deficiencies documented in this encounter Additional Health Concerns Assessment Noted Time PHQ-9 Depression Total Score: 0 05/29/19 24 9:06 AM EDT documented as of this encounter Care Teams Legal Arbitrator Relationship Specialty Start Date End Date Name, MD Krzysztof [address] [place] [address] PCP - General Family Medicine 02/12/18 documented as of this encounter
--- OUTSIDE RECORDS SUMMARY | 2024-10-24 20:45 | XMS_ITS | Encounter Summary ---
Author Organization [employer] Address 75 [facility] 7t [place] [address] Care Team Providers Care Director Speech And Hearing Name Role Phone Name, Krzysztof PERSON Primary Care Provider [phone] Reason for Visit * Reason Onset Date Comments Med Refill 09/16/2024 Encounter Details Date Type Department Care Team ([facility] st Contact Info) Description 09/16/2024 Refill [facility] MEDICINE [address] [place], [place] [phone] Trina August NP [address] [place], [place] [phone] Irritable bowel syndrome with both constipation and diarrhea Social History Tobacco Use Types Packs/Day Years [...] your housing situation today? I have andrea sing 09/05/[address] you li [...] Description 10/28/2024 11:30 AM EDT Clinical Support [address] [address] 11/10/2024 1:30 PM EDT Clinical Support [address] [address] Keely Person, SAMRA documented as of this encounter Visit Diagnoses Diagnosis Irritable bowel syndrome with both constipation and diarrhea documented in this encounter Additional Health Concerns Assessment Noted Time PHQ-9 Depression Total Score: 15 025 3:53 PM EDT documented as of this encounter Care Teams Director Speech And Hearing Relationship Specialty Start Date End Date Name, MD Krzysztof [address] [place] [address] PCP - General Family Medicine 02/12/18 documented as of this encounter
--- OUTSIDE RECORDS SUMMARY | 2024-10-24 20:45 | XMS_ITS | Encounter Summary ---
Author Organization [employer] Address [address] [place] [address] 7 [place] [address] Care Team Providers Care Web Applications Developer Name Role Phone Name, Krzysztof PERSON Primary Care Provider [phone] Reason for Visit * Reason Onset Date Comments Med Refill 08/21/2022 Encounter Details Date Type Department Care Team (Late st Contact Info) Description 08/21/2022 Refill [facility] MEDICINE [address] [place] [phone] Name, MD Krzysztof [address] [place] [address] Social History Tobacco Use Types Packs/Day Years [...] Description 10/28/2024 11:30 AM EDT Clinical Support [facility] MEDICINE [address] [place] [address] 11/10/2024 1:30 PM EDT Clinical Support [facility] MEDICINE [address] [phone] Keely Person RN documented as of this encounter Visit Diagnoses Not on filedocumented in this encounter Care Teams Web Applications Developer Relationship Specialty Start Date End Date Name, MD Krzysztof [address] [place] [address] PCP - General Family Medicine 02/12/18 documented as of this encounter
--- OUTSIDE RECORDS SUMMARY | 2024-10-24 20:45 | XMS_ITS | Encounter Summary ---
Author Organization [employer] Address [address] [facility] [address] 7t [place] [address] Care Team Providers Care Change Control Coordinator Name Role Phone Name, Krzysztof PERSON Primary Care Provider [phone] Reason for Visit * Reason Onset Date Comments Med Refill 08/21/2024 Encounter Details Date Type Department Care Team ([facility] st Contact Info) Description 08/21/2024 Refill [facility] CHC MED & PEDS [address] [place] [address] Trina August, ANNE [address] [place] [address] Social History Tobacco Use Types Packs/Day Years [...] Description 10/28/2024 11:30 AM EDT Clinical Support [address] [address] 11/10/2024 1:30 PM EDT Clinical Support [address] [address] Keely Person, SAMRA documented as of this encounter Visit Diagnoses Not on filedocumented in this encounter Additional Health Concerns Assessment Noted Time PHQ-9 Depression Total Score: 0 05/29/19 24 9:06 AM EDT documented as of this encounter Care Teams Change Control Coordinator Relationship Specialty Start Date End Date Name, MD Krzysztof [address] [place] [address] PCP - General Family Medicine 02/12/18 documented as of this encounter
--- OUTSIDE RECORDS SUMMARY | 2024-10-24 20:45 | XMS_ITS | Encounter Summary ---
Author Organization [employer] Address [address] [place] [address] 7 [place] [address] Care Team Providers Care Customs Brokerage Manager Name Role Phone Name, Krzysztof PERSON Primary Care Provider [phone] Encounter Details Date Type Department Care Team (Late Contact Info) Description 07/01/2022 Orders Only [facility] CHC MED & PEDS [address] [place], [place] [phone] Nils Meza MD [address] [place] [address] Social History Tobacco Use Types Packs/Day Years [...] Description 10/28/2024 11:30 AM EDT Clinical Support [address] [phone] 11/10/2024 1:30 PM EDT Clinical Support [address] [phone] Keely Person RN documented as of this encounter Visit Diagnoses Not on filedocumented in this encounter Care Teams Customs Brokerage Manager Relationship Specialty Start Date End Date Name, MD Krzysztof [address] [place] [address] PCP - General Family Medicine 02/12/18 documented as of this encounter
--- NOTE | 2024-10-24 22:01 | ED.BACK ---
HPI - Back Pain/Injury General Chief Complaint: Back Pain/Injury Stated Complaint: L hip pain Time Seen by Provider: 10/24/24 21:35 Source: patient Mode of arrival: ambulatory Limitations: no limitations History of Present Illness ED Provider: Joaquim VAUGHN HPI Narrative: The patient is a 63-year-old female presenting to the ED reporting approximately 6-7 days ago she was lowering a window shade when she felt her lower back ?lock up? with severe pain in the left low back radiating to the left leg. Patient denies fall to the ground, denies associated bowel/bladder incontinence, urinary retention, saddle paresthesias, lower extremity weakness, or fever. The patient denies surgical spinal history. The patient reports she attempted taking her regularly prescribed hydrocodone (chronic left foot postoperative pain) without significant improvement. The patient reports she was seen by her PCP for a routine scheduled visit and during that appointment advised him of her back pain, patient was prescribed tizanidine which she attempted taking today without any relief and presents to the ED for additional management. The patient denies recurrent injury. Patient denies any dysuria, hematuria, fever/chills, nausea, vomiting, constipation, diarrhea, hematochezia, melena, or distal paresthesias. Related Data Home Medications ?Medication ?Instructions ?Recorded ?Confirmed albuterol sulfate 90 mcg/actuation inhalation PRN Shortness Of Breath 03/31/20 06/18/24 aerosol inhaler Or Wheezing cyanocobalamin (vitamin B-12) 1,000 mcg IM 03/31/20 06/18/24 1,000 mcg/mL injection solution mometasone 0.1 % topical cream appl topical DAILY 03/31/20 06/18/24 paroxetine HCl 10 mg tablet 10 mg PO DAILY 03/31/20 06/18/24 polyethylene glycol 3350 17 17 g PO DAILY 03/31/20 06/18/24 gram/dose oral powder levothyroxine 50 mcg tablet 50 mcg PO DAILY 06/14/20 06/18/24 naloxone 4 mg/actuation nasal spray 0 spray intranasal 04/04/22 06/18/24 fczhcikcg-idyfonnxg-cjqpowtr-scop 1 tab PO TID 12/01/22 06/18/24 16.2 mg-0.1037 mg-0.0194 mg tablet (Phenohytro) docusate sodium 100 mg capsule 100 mg PO BID 12/11/22 06/18/24 ibuprofen 800 mg tablet 800 mg PO TID 03/12/23 06/18/24 fluticasone furoate 100 1 inh inhalation DAILY 06/18/23 06/18/24 mcg/actuation blister powder for inhalation (Arnuity Ellipta) loratadine 10 mg tablet 10 mg PO DAILY 06/18/23 06/18/24 cholecalciferol (vitamin D3) 25 25 mcg PO DAILY 04/14/24 06/18/24 mcg (1,000 unit) capsule (Vitamin D3) hydrocodone 5 mg-acetaminophen 325 1 tab PO Q6H PRN 06/18/24 06/18/24 mg tablet Previous Rx's ?Medication ?Instructions ?Recorded ABD gauze pads 1 box #1 ea 05/21/23 Kerlix gauze pads 1 box #1 ea 05/21/23 acetaminophen 500 mg capsule 1,000 mg (2 x 500 mg) PO Q6H PRN 04/14/24 pain #60 caps diazepam 2 mg tablet (Valium) 2 mg PO TID PRN muscle spasm #7 10/25/24 tabs ibuprofen 600 mg tablet 600 mg PO Q8H PRN fever or pain 10/25/24 #30 tabs Allergies Allergy/AdvReac Type Severity Reaction Status Date / Time sertraline (From ZOLOFT) Allergy Severe GI Verified 10/24/24 20:32 UPSET/LETHARGY/CONFUSION atorvastatin (ATORVASTATIN) Allergy Intermediate SEVER Verified 10/24/24 20:32 MUSCLE/FOOT PAIN oxycodone (OXYCODONE) Allergy Intermediate GI Verified 10/24/24 20:32 UPSET,CONFUSION cefaclor (From Ceclor) Allergy Mild DYSPNEA Verified 10/24/24 20:32 Penicillins Allergy Mild DYSPNEA Verified 10/24/24 20:32 vancomycin (Vancomycin) Allergy Mild ITCHING Verified 10/24/24 20:32 acetaminophen Allergy Unknown Unknown Verified 10/24/24 20:32 (Tylenol-Codeine #3) penicillin V Allergy Unknown unknown Verified 10/24/24 20:32 metronidazole (From Flagyl) AdvReac Unknown Unknown Verified 10/24/24 20:32 Bactrim Allergy Unknown Unknown Uncoded 10/24/24 20:32 Review of Systems Review of Systems: Yes all other systems are reviewed and are negative PMFSH Past Medical History Medical History (Updated 10/25/24 @ 00:08 by Joaquim Benitez PA-C) Nicotine dependence, cigarettes, uncomplicated Abdominal wall mass Female bladder prolapse B12 deficiency Depression Hyperlipidemia Osteopenia Obesity Thyroid nodule Hypothyroidism (~2014) Surgical History Hx of abdominal surgery (04/30/23) History of incisional hernia repair (12/11/22) Previous section Hx of laparoscopy History of partial hysterectomy (05/2022) History of colonoscopy History of foot surgery Hx of mammogram Hx of cholecystectomy Hx of tonsillectomy History of esophagogastroduodenoscopy (EGD) Family History Family History Father Heart disease Mother Cardiomyopathy Goiter Maternal Grandfather Stomach cancer Social History Social History Alcohol intake: current Alcohol intake frequency: does not drink Patient Tobacco Use Status: Current everyday Tobacco user Tobacco use type: Cigarette Cigarette Packs Per Day: 0.5 Cigarettes Per Day: 10.0 Years Smoked: 40 - onset 22, 1.5-2ppd x 40yrs, 60+PYH Second Hand Smoke Exposure: No Advance Directives: No Advance Directives Information Provided: No Physical Exam Vital Signs: Vital Signs: Last Vital Signs Temp 98.1 F 10/24/24 23:51 Pulse 74 10/24/24 23:51 Resp 18 10/24/24 20:24 BP 173/95 H 10/24/24 23:51 Pulse Ox 97 10/24/24 23:51 O2 Del Method Room Air 10/24/24 23:51 BMI result Body Mass Index 36.0 CONSTITUTIONAL: The patient appears non-toxic, well nourished and in no acute distress. Vital signs as documented. HEAD: Atraumatic, normocephalic. EYES: EOMs grossly intact, pupils equal, conjunctiva clear, no exudate. ENT: Nares patent, no discharge. Airway patent, no audible stridor, visible mucosa is pink and moist without noted lesions. NECK: Trachea is midline, no obvious masses or gross abnormalities. CHEST: Symmetric movement, normal appearance. LUNGS: LS present and CTAB, no w/r/r. Non-labored work of breathing. CARDIAC: Regular Rhythm, S1/S2 appreciated, no murmurs, rubs or gallops. ABDOMEN: Abdomen soft and non-tender x4 quadrants, no palpable masses or organomegaly. BACK: Pain noted/reported with active straight leg raise, no pain with passive straight leg raise, LLE shows distal CSM is intact, 2+ DP/PT pulses. No midline lumbar spinous process tenderness, no crepitus or step-off. No palpable SI deformity or tenderness. : Deferred. EXTREMITIES: Normal tone, moves all extremities spontaneously without reported pain. No obvious acute injury or deformity noted. NEURO: Alert and oriented x3, CN II-XII appear grossly intact. Cerebellar Functioning grossly intact. No obvious sensory or motor deficits. Speech clear and appropriate. PSYCH: normal affect, appropriate eye contact, fluid speech, with appropriate response to questioning. No reported suicidality or homicidality. SKIN: Warm, dry, color appropriate, normal turgor. No rashes noted. Medications Administered Discontinued Medications Generic Name Dose Route Start Last Admin Trade Name [place] PRN Reason Stop Dose Admin Hydrocodone Bitart/Acetaminophen 1 tab 10/24/24 22:47 10/24/24 22:59 Hydrocodone Bit/Acetam 5/325 Tablet PO 10/24/24 22:48 1 tab ONCE ONE Administration Diazepam 2 mg 10/24/24 22:47 10/24/24 22:59 Diazepam 2 Mg Tablet PO 10/24/24 22:48 2 mg ONCE ONE Administration Ketorolac Tromethamine 30 mg 10/24/24 22:47 10/24/24 22:59 Ketorolac Tromethamine 30 Mg/Ml Vial IM 10/24/24 22:48 30 mg ONCE ONE Administration Lidocaine 1 patch 10/24/24 22:47 10/24/24 22:59 Lidocaine 4 % Patch Adh..Patch TRANSDERMA 10/24/24 22:48 1 patch ONCE ONE Administration Protocol Medical Decision Making Medical Decision Making MDM Narrative: 11:57 PM 10/24/2024 (Nat VAUGHN): The patient is a 63-year-old female presenting to the ED reporting approximately 6-7 days ago she was lowering a window shade when she felt her lower back ?lock up? with severe pain in the left low back radiating to the left leg. Patient denies fall to the ground, denies associated bowel/bladder incontinence, urinary retention, saddle paresthesias, lower extremity weakness, or fever. The patient denies surgical spinal history. The patient reports she attempted taking her regularly prescribed hydrocodone (chronic left foot postoperative pain) without significant improvement. The patient reports she was seen by her PCP for a routine scheduled visit and during that appointment advised him of her back pain, patient was prescribed tizanidine which she attempted taking today without any relief and presents to the ED for additional management. The patient denies recurrent injury. Patient denies any dysuria, hematuria, fever/chills, nausea, vomiting, constipation, diarrhea, hematochezia, melena, or distal paresthesias. The patient's exam is positive for pain with active straight leg raise, no pain with passive straight leg raise, distal CSM is intact, 2+ DP/PT pulses. No midline lumbar spinous process tenderness, no crepitus or step-off. No palpable SI deformity or tenderness. No concern for cauda equina, no recent fall or trauma, no indication for imaging at this time. Patient's presentation is consistent with likely muscle strain with subsequent spasm and sciatica. Patient was treated with diazepam, her regularly prescribed hydrocodone, Toradol, and a lidocaine patch. Just now the patient was reassessed and advises she is having marked improvement in her symptoms, reports she was able to walk safely to the bathroom to urinate. At this time patient will be discharged home with ibuprofen, a short course of Valium, and instructions to obtain lidocaine patches as needed. Admission/Observation Consideration of admission/observation: Escalation of care including admission/observation considered External Record Review External record reviewed: Outpatient record Tests considered The following testing was considered but not selected: Lumbar Spine CT, MRI Spine Prescription Management I considered prescription management with: Pain Medication and Other (Antispasmodic) Discharge Plan Discharge Clinical Impression: Lumbar radiculopathy Strain of lumbar region Qualifiers: Encounter type: initial encounter Qualified Code(s): S39.012A - Strain of muscle, fascia and tendon of lower back, initial encounter Sciatica Qualifiers: Laterality: left Qualified Code(s): M54.32 - Sciatica, left side Patient Disposition: Home, Self-Care Instructions: Sciatica (ED), Low Back Strain (ED), Lumbar Radiculopathy (ED), P.R.I.C.E. Treatment (ED) Additional Instructions: Thank you for choosing [facility] for your care today. Thankfully your presentation and exam today had no symptoms or findings concerning for an emergent cause for your back pain, there was no indication for advanced imaging or surgical intervention. Given your reassuring presentation and workup, as well as your improvement in symptoms following interventions, at this time there is no indication for admission to the hospital or continued ED observation, and it is safe to discharge you home. Your symptoms appear consistent with a musculoskeletal strain causing inflammation and compression of your sciatic nerve running into your left leg, a condition known as sciatica, also known as lumbar radiculopathy. You should take ibuprofen 600mg every 8 hours in addition to your regularly prescribed hydrocodone. Please rest the injured area, and apply ice for 20 minutes every hour. Please stay well hydrated and get plenty of rest. As a part of your care plan, you have also been prescribed a muscle relaxer called Valium. Please take this medication only for severe pain or spasm that is not relieved by ibuprofen and/or hydrocodone. Muscle relaxer medications can carry high risk of unintentional addiction and abuse. Take this medication only as directed and only if absolutely necessary. This medicine can make you drowsy, you are not allowed to drive, operate heavy machinery, or be the sole care provider for children while taking this medication. We have treated you with a lidocaine patch, if you find this provides you significant relief additional patches can be purchased at any local pharmacy without a prescription. Please follow up with your primary care physician for re-evaluation, additional management of your symptoms, and continued preventative care. If you do not have a primary care physician, please call the [facility] at [phone] to establish a new primary care physician. While waiting to establish your new primary care physician, you can call our [facility] at [phone] for non-emergency needs. Please return to the emergency department if you develop a severe or sudden change in your symptoms, a fever over 100.4 that does not improve with Tylenol or Ibuprofen, recurrent vomiting, or any other new or worsening symptoms or concerns. Prescriptions: New ibuprofen 600 mg tablet 600 mg PO Q8H PRN (Reason: fever or pain) Qty: 30 0RF diazepam [Valium] 2 mg tablet 2 mg PO TID PRN (Reason: muscle spasm) Qty: 7 0RF No Action (DME) ABD gauze pads 1 box 9x5 See Rx Instructions .Route .MEDSUPPLY Qty: 1 6RF Rx Instructions: As directed (DME) Kerlix gauze pads 1 box 6x6 See Rx Instructions .Route .MEDSUPPLY Qty: 1 1RF Rx Instructions: As directed docusate sodium 100 mg capsule 100 mg PO BID levothyroxine 50 mcg tablet 50 mcg PO DAILY cyanocobalamin (vitamin B-12) 1,000 mcg/mL solution 1,000 mcg IM paroxetine HCl 10 mg tablet 10 mg PO DAILY polyethylene glycol 3350 17 gram/dose powder 17 g PO DAILY albuterol sulfate 90 mcg/actuation HFA aerosol inhaler inhalation PRN (Reason: Shortness Of Breath Or Wheezing) mometasone 0.1 % cream topical DAILY naloxone 4 mg/actuation spray,non-aerosol 0 spray intranasal ibuprofen 800 mg tablet 800 mg PO TID loratadine 10 mg tablet 10 mg PO DAILY Arnuity Ellipta 100 mcg/actuation blister with device 1 inh inhalation DAILY cholecalciferol (vitamin D3) [Vitamin D3] 25 mcg (1,000 unit) capsule 25 mcg PO DAILY acetaminophen 500 mg capsule 1,000 mg PO Q6H PRN (Reason: pain) Qty: 60 0RF zipoisrny-rhuvgj-dwrbsdkv-scop [Phenohytro] 16.2-0.1037 -0.0194 mg tablet 1 tab PO TID hydrocodone-acetaminophen 5-325 mg tablet 1 tab PO Q6H PRN Referrals: Physician,Unknown J [Primary Care Provider, Medical] Clinical Impression: Lumbar radiculopathy; Sciatica Print Language: Greenlandic
[2024-10-24] MEDS: HYDROcodone Bit/Acetam 5/325 TABLET 1 TAB PO (22:59)
[2024-10-24] MEDS: Lidocaine 4 % Patch ADH..PATCH 1 PATCH TRANSDERMA (22:59)
[2024-10-24 23:51] VITALS: BP 173/95; PULSE 74; TEMP 36.7; O2SAT 97
[2024-10-25] MEDS: Lidocaine 4 % Patch ADH..PATCH 1 PATCH TRANSDERMA (00:15)
[2024-10-25 00:28] VITALS: BP 173/95; PULSE 74; RESP 16; TEMP 36.7; O2SAT 97
== END 2024-10-25 00:29 | disposition home or self-care (01) ==
PROVIDERS: Emergency Provider Emergency Medicine
DX: S39.012A Strain of muscle, fascia and tendon of lower back, initial encounter (principal); M54.32 Sciatica, left side; X50.9XXA Other and unspecified overexertion or strenuous movements or postures, initial encounter; Y93.89 Activity, other specified; Y92.098 Other place in other non-institutional residence as the place of occurrence of the external cause; Y99.8 Other external cause status
CPT/HCPCS: 96372; 99284; J1885

== ENCOUNTER 2024-11-25 08:11 | Outpatient (REF) | payer MEDICARE, MEDICAID, SELFPAY ==
[2024-11-25 11:35] LABS: MANUAL DIFF FLAG NO
[2024-11-25 12:00] LABS: Hematocrit 48.3 % (37.0-47.0); Hemoglobin 14.9 g/dl (12.0-16.0); Imm Gran Abs Auto 0.03 X10*3/uL (0.00-0.03); Imm Gran Pct Auto 0.3 % (0.0-0.4); Lymphocytes Absolute Auto 2.4 X10*3/uL (1.2-4.9); Mean Corpuscular HGB Conc 30.8 g/dl (31.0-35.0); Mean Corpuscular Hemoglobin 28.8 pg (27.0-33.0); Mean Corpuscular Volume 93.2 fL (80.0-98.0); NRBC Abs Auto 0.000 X10*3/uL (0.0-0.012); NRBC Pct Auto 0.0 /100WBC (0.0-0.2); Platelet Count 318 X10*3/uL (160-400); Red Blood Count 5.18 X10*6/uL (4.20-5.50); White Blood Count 10.9 X10*3/uL (4.8-10.8)
[2024-11-25 12:28] LABS: Alanine Aminotransferase 22 U/L (0-31); Albumin Level 4.0 g/dL (3.5-5.0); Alkaline Phosphatase 94 U/L (39-117); Anion Gap 11 (12-20); Aspartate Amino Transferase 21 U/L (5-31); Blood Urea Nitrogen 17 mg/dL (9-16); Calcium 9.4 mg/dL (8.4-10.2); Carbon Dioxide 27 mmol/L (22-29); Chloride 106 mmol/L (96-108); Estimated Glomerular Filt Rate > 60; Potassium 4.4 mmol/L (3.3-5.1); Sodium 140 mmol/L (135-145); Total Protein 6.9 g/dL (6.5-8.0)
[2024-11-25 12:47] LABS: Free T4 (Free Thyroxine) 1.23 ng/dL (0.71-1.85); Thyroid Stimulating Hormone 0.76 uIU/mL (0.32-4.0)
== END 2024-11-25 08:12 | disposition home or self-care (01) ==
LOC: HO.HHCL 08:11
PROVIDERS: Student in an Organized Health Care Education/Training Program; PCP Internal Medicine Geriatric Medicine; Visit Provider Internal Medicine Geriatric Medicine
DX: M25.551 Pain in right hip (principal); G89.29 Other chronic pain; E04.1 Nontoxic single thyroid nodule; E03.9 Hypothyroidism, unspecified; Z79.1 Long term (current) use of non-steroidal anti-inflammatories (NSAID)
CPT/HCPCS: 36415; 80053; 84439; 84443; 85025

== ENCOUNTER 2024-12-22 14:07 | Outpatient (AMB) | payer MEDICARE, MEDICAID, SELFPAY ==
[2024-12-22 14:10] VITALS: BP 136/76; PULSE 101; BMI 34.9
--- NOTE | 2024-12-22 14:10 | A.OFFVIS_ITS ---
Vital Signs 12/22/24 14:10 Height 5 ft 6 in Weight 216 lb 0.848 oz BMI 34.9 BP 136/76 Blood Pressure Location Lt brachial Position Sitting Pulse 101 H Intake Visit Reasons: f/u, pt does not want entyvio Intake Note: Tenisha presents in the office as as follow up. CC: severe diarrhea for 5 days now - she states it is not gluten or any of that. She is having bloating in her stomach - nothing is helpling. Baker Bench Required: No Allergies sertraline (From ZOLOFT) Allergy (Severe, Verified 12/22/24 14:19) GI UPSET/LETHARGY/CONFUSION atorvastatin (ATORVASTATIN) Allergy (Intermediate, Verified 12/22/24 14:19) SEVER MUSCLE/FOOT PAIN oxycodone (OXYCODONE) Allergy (Intermediate, Verified 12/22/24 14:19) GI UPSET,CONFUSION cefaclor (From Ceclor) Allergy (Mild, Verified 12/22/24 14:19) DYSPNEA Penicillins Allergy (Mild, Verified 12/22/24 14:19) DYSPNEA vancomycin (Vancomycin) Allergy (Mild, Verified 12/22/24 14:19) ITCHING acetaminophen (Tylenol-Codeine #3) Allergy (Unknown, Verified 12/22/24 14:19) Unknown penicillin V Allergy (Unknown, Verified 12/22/24 14:19) unknown metronidazole (From Flagyl) Adverse Reaction (Unknown, Verified 12/22/24 14:19) Unknown Bactrim Allergy (Unknown, Uncoded 12/22/24 14:19) Unknown HPI HPI f/u, pt does not want entyvio: Details: 64 yr old f here for f/u RECAP: Had been seeing May, ongoing diarrhea with constipation bouts she can go up to 8 times a day, feels prolapse has came back she takes colace she has gas bloating with veg says she has had lazy colon and IBS etc since GB removed aged 19 she had rectal and vaginal prolapse surgery 05/2022 she was intolerant of cholestyramine -made her sick recovering from ventral hernia repair abscess and just finished ABx, finally healing ibuprofen every other day at least OD colonoscopy 2016--- no random bx done. hyperplastic polyp removed LABS: stool PCR GI--neg c diff neg celiac neg RAST--pos for egg whites, shrimp and scallop EGD/colonscopy 2023- severe diverticulosis colitis fecal lactoferrin 920!!! (2024) INTERIM: she does not want entyvio she wants to repeat colonoscopy\, she is not sure she needs entyvio due to possible SE she was reluctant to take budesonide or mesalamine but will try now she has diarrhea, and loose stools no blood appetite is fair EXAM: GENERAL: The patient is well developed and nontoxic. VITAL SIGNS:see workflow HEENT: Nonicteric sclerae, PERRLA, EOMI. Oropharynx clear. Moist mucous membranes. Conjunctivae appear well perfused. No thyroid mass. CHEST: Chest wall is nontender. HEART: Regular rate and rhythm without murmurs. LUNGS: Clear to auscultation bilaterally. ABDOMEN: Soft, positive bowel sounds, generally tender all over, no organomeg kelle.no flank tenderness-- SKIN: No rash, no excessive bruising, petechiae, or purpura. NEUROLOGIC: Cranial nerves II-XII intact without motor/sensory deficit. Psych: nml affect A/P: 1/ Abn bowel habit with chronic colitis on the left side and active esophagitis 2/ satiety, nausea--r/o GOO PLAN: 1/ she will try mesalamine --will give apriso 2/ she is ok to repeat stool tests 3/ we will do colo again if ongoing sx and no response to above, but suspect will eventually need entyvio [facility] Medical History Nicotine dependence, cigarettes, uncomplicated Abdominal wall mass Female bladder prolapse B12 deficiency Depression Hyperlipidemia Osteopenia Obesity Thyroid nodule Hypothyroidism (~2014) Surgical History Hx of abdominal surgery (04/30/23) History of incisional hernia repair (12/11/22) Previous section Hx of laparoscopy History of partial hysterectomy (05/2022) History of colonoscopy History of foot surgery Hx of mammogram Hx of cholecystectomy Hx of tonsillectomy History of esophagogastroduodenoscopy (EGD) Family History Father Heart disease Mother Cardiomyopathy Goiter Maternal Grandfather Stomach cancer Social History Alcohol intake: current Alcohol intake frequency: does not drink Patient Tobacco Use Status: Current everyday Tobacco user Tobacco use type: Cigarette Cigarette Packs Per Day: 0.5 Cigarettes Per Day: 10.0 Years Smoked: 40 - onset 22, 1.5-2ppd x 40yrs, 60+PYH Second Hand Smoke Exposure: No Physical Exam Vital Signs: Last Vital Signs Pulse 101 H 12/22/24 14:10 BP 136/76 12/22/24 14:10 BMI result Body Mass Index 34.9 Assessment & Plan Assessment & Plan (1) Colitis: Code(s): K52.9 - Noninfective gastroenteritis and colitis, unspecified Category: Medical Plan: as above Orders: Orders Lactoferrin, Fecal, Quant. Today K51.50 - Left sided colitis without complications GI Panel Today R19.7 - Diarrhea, unspecified CDiff Gene PCR Today R19.7 - Diarrhea, unspecified Medications: New mesalamine ER (Apriso) 1.5 grams (4 x 0.375 gram) PO QAM 120 caps 2RF Coding Level of Care Code Est Pt Level 3 (67206) Diagnoses Colitis K52.9
--- OUTSIDE RECORDS SUMMARY | 2024-12-22 16:27 | XMS_ITS | Clinical Summary ---
Author Organization [facility] [address] [place] [address] [place] [phone] Phone Care Team Providers Care Oil Burner Mechanic Name Role Phone Name, Krzysztof PERSON Primary Care Provider [phone] Allergies Active Allergy Reactions Criticality Noted Date [...] Mother a t the age of 66.goiter, [address] [employer] cancer ? Breast cancer Neg Hx Colon [...] 04/16/2023 2:10 PM EST Plan of Treatment Upcoming Encounters Date Type Department Care Team (Late st Contact Info) Description 02/09/2025 11:00 AM EST Appointment Radiology Department [address] [phone] Health Maintenance Due Date Last Done Comments Colorectal Cancer Screening: Colonoscopy 1962 Pneumococcal Vaccine: 50+ Years (1 of 2 - PCV) 1981 Cervical Cancer Screening: HPV 12/21/1983 Zoster Vaccines (1 of 2) 2012 HIV Screening 01/21/2022 Hepatitis C Screening 01/21/2022 [...] is recommended in 1 year. MAMMO LOCATION: [facility], [address] [place] [address], [id number], . -------- FINAL REPORT -------- Dictated By: Ashli Tirado Dictated Date: 02/11/2024 19:32 ET Assigned Physician: Ashli Tirado Reviewed and Electronically Signed By: Ashli Tirado Signed Date: 02/11/2024 19:33 ET Workstation ID: [id number] Transcribed By: Self Edit Transcribed Date: 02/11/2024 [...] is recommended in 1 year. MAMMO LOCATION: [facility], [address] [place] [address], [id number], . -------- FINAL REPORT -------- Dictated By: Ashli Tirado Dictated Date: 02/11/2024 19:32 ET Assigned Physician: Ashli Tirado Reviewed and Electronically Signed By: Ashli Tirado Signed Date: 02/11/2024 19:33 ET Workstation ID: [id number] Transcribed By: Self Edit Transcribed Date: 02/11/2024 19:32 ET Krzysztof Name [employer] BI PROCEDURES Final Result from Last 3 Months or Most Recently Relevant to Health Maintenance Insurance MEDICAID - [place] MEDICARE Care Teams Oil Burner Mechanic Relationship Specialty Start Date End Date Name, MD Krzysztof [address] [place] [address] PCP - General Internal Medicine 12/22/10
--- OUTSIDE RECORDS SUMMARY | 2024-12-22 16:27 | XMS_ITS | Encounter Summary ---
Author Organization [employer] Address [address] [facility] [address] [place] [address] Care Team Providers Care It Teacher Name Role Phone Name, Krzysztof PERSON Primary Care Provider [phone] Reason for Visit * Reason Onset Date Comments Med Refill 05/21/2024 Encounter Details Date Type Department Care Team ([facility] st Contact Info) Description 05/21/2024 Refill [facility] [address] [place], [place] [phone] Name, MD Krzysztof [address] [place] [address] Social History Tobacco Use Types Packs/Day Years [...] Care Team (Late st Contact Info) Description 01/12/2025 1:30 PM EST Nurse Only [address] [address] 02/10/2025 1:30 PM EST Clinical Support [address] [address] Keely Person RN 02/18/2025 9:30 AM EST Office Visit [address] [address] Name, MD Krzysztof [address] [place] [phone] documented as of this encounter Visit Diagnoses Not on filedocumented in this encounter Additional Health Concerns Assessment Noted Time PHQ-9 Depression Total Score: 0 05/29/19 24 9:06 AM EDT documented as of this encounter Care Teams It Teacher Relationship Specialty Start Date End Date Name, MD Krzysztof [address] [place] [phone] PCP - General Family Medicine 02/12/18 documented as of this encounter
--- OUTSIDE RECORDS SUMMARY | 2024-12-22 16:27 | XMS_ITS | Encounter Summary ---
Author Organization [employer] Address [address] [facility] [address] [place] [address] Care Team Providers Care Associate Professor Of Geography Name Role Phone Name, Krzysztof PERSON Primary Care Provider [phone] Reason for Visit * Reason Onset Date Comments Med Refill 08/21/2024 Encounter Details Date Type Department Care Team ([facility] st Contact Info) Description 08/21/2024 Refill [facility] [address] [place] [address] Trina August, ANNE [address] [place] [address] Social History Tobacco Use Types Packs/Day Years [...] Description 01/12/2025 1:30 PM EST Nurse Only [address] [address] 02/10/2025 1:30 PM EST Clinical Support [address] [address] Keely Person, SAMRA 02/18/2025 9:30 AM EST Office Visit [address] [address] Name, MD Krzysztof [address] [place] [phone] documented as of this encounter Visit Diagnoses Not on filedocumented in this encounter Additional Health Concerns Assessment Noted Time PHQ-9 Depression Total Score: 0 05/29/19 24 9:06 AM EDT documented as of this encounter Care Teams Associate Professor Of Geography Relationship Specialty Start Date End Date Name, MD Krzysztof [address] [place] [phone] PCP - General Family Medicine 02/12/18 documented as of this encounter
--- OUTSIDE RECORDS SUMMARY | 2024-12-22 16:27 | XMS_ITS | Encounter Summary ---
Author Organization [employer] Address [address] [facility] 7t [place] [address] Care Team Providers Care Life Skills Instructor Name Role Phone Name, Krzysztof PERSON Primary Care Provider [phone] Reason for Visit * Reason Onset Date Comments Med Refill 06/11/2024 Encounter Details Date Type Department Care Team ([facility] st Contact Info) Description 06/11/2024 Refill [facility] [address] [place], [place] [phone] Name, MD Krzysztof [address] [place] [address] Lumbar back pain with radiculopathy affecting left [...] Description 01/12/2025 1:30 PM EST Nurse Only [address] [address] 02/10/2025 1:30 PM EST Clinical Support [address] [address] Keely Person RN 02/18/2025 9:30 AM EST Office Visit [address] [address] Name, MD Krzysztof [address] [place] [phone] documented as of this encounter Visit Diagnoses Diagnosis Lumbar back pain with radiculopathy affecting left lower extremity documented in this encounter Additional Health Concerns Assessment Noted Time PHQ-9 Depression Total Score: 0 05/29/19 24 9:06 AM EDT documented as of this encounter Care Teams Life Skills Instructor Relationship Specialty Start Date End Date Name, MD Krzysztof [address] [place] [id number] PCP - General Family Medicine 02/12/18 documented as of this encounter
--- OUTSIDE RECORDS SUMMARY | 2024-12-22 16:27 | XMS_ITS | Encounter Summary ---
Author Organization [employer] Address [address] [facility] 7t [place] [address] Care Team Providers Care Senior Accountant Analyst Name Role Phone Name, Krzysztof PERSON Primary Care Provider Reason for Visit * Reason Onset Date Comments Med Refill 09/04/2024 Encounter Details Date Type Department Care Team ([facility] st Contact Info) Description 09/04/2024 Refill [facility] [address] [place], [place] [phone] Name, MD Krzysztof [address] [place] [address] Social History Tobacco Use Types Packs/Day Years [...] 01/12/2025 1:30 PM EST Nurse Only [address] [place] [address] 02/10/2025 1:30 PM EST Clinical Support [address] [address] Keely Person, SAMRA 02/18/2025 9:30 AM EST Office Visit [address] [address] Name, MD Krzysztof [address] [place] [address] documented as of this encounter Visit Diagnoses Not on filedocumented in this encounter Additional Health Concerns Assessment Noted Time PHQ-9 Depression Total Score: 0 05/29/19 24 9:06 AM EDT documented as of this encounter Care Teams Senior Accountant Analyst Relationship Specialty Start Date End Date Name, MD Krzysztof [address] [place] [phone] PCP - General Family Medicine 02/12/18 documented as of this encounter
--- OUTSIDE RECORDS SUMMARY | 2024-12-22 16:27 | XMS_ITS | Encounter Summary ---
Author Organization [employer] Address [address] [place] [address] 7t [place] [address] Care Team Providers Care Clasp Machine Operator Name Role Phone Name, Krzysztof PERSON Primary Care Provider [phone] Encounter Details Date Type Department Care Team (Late Contact Info) Description 07/14/2022 Abstract [facility] [address] [place] [address] [phone] Name, MD Krzysztof [address] [place] [phone] Social History Tobacco Use Types Packs/Day Years [...] Upcoming Encounters Date Type Department Care Team ([facility] Contact Info) Description 01/12/2025 1:30 PM EST Nurse Only [facility] [address] [place] [address] [phone] 02/10/2025 1:30 PM EST Clinical Support [facility] [address] [facility] [place] [address] Keely Person RN 02/18/2025 9:30 AM EST Office Visit [facility] [place] [address] Name, MD Krzysztof [facility] [place] [address] documented as of this encounter Procedures Procedure [...] on filedocumented in this encounter Care Teams Clasp Machine Operator Relationship Specialty Start Date End Date Name, MD Krzysztof [facility] [place] [address] PCP - General Family Medicine 02/12/18 documented as of this encounter
--- OUTSIDE RECORDS SUMMARY | 2024-12-22 16:27 | XMS_ITS | Encounter Summary ---
Author Organization [employer] Address [address] [facility] [address] 7[address] [place] [address] Care Team Providers Care Head Buyer Tobacco Name Role Phone Name, Krzysztof PERSON Primary Care Provider Encounter Details Date Type Department Care Team ([facility] st Contact Info) Description 09/20/2023 Orders Only [facility] [address] [place] [address] Angelica Kyle RN Vitamin B 12 deficiency [...] Description 01/12/2025 1:30 PM EST Nurse Only [address] [address] 02/10/2025 1:30 PM EST Clinical Support [address] [address] Keely Person RN 02/18/2025 9:30 AM EST Office Visit [address] [address] Name, MD Krzysztof [address] [place] [address] documented as of this encounter Procedures Procedure [...] PM EDT Narrative 09/28/2023 3:06 PM EDT [address] [address] XRay Report Signed Patient: Tenisha Jones V MR#: [id number] 14 : 1960 Acct:[id number] Age/Sex: 62 / F ADM Date: 09/28/23 Loc: HO.ED Attending Dr: Ordering Physician: Tamica Bullard Date of Service: 09/28/23 Procedure(s): XR tibia fibula LT 2V Accession Number(s): [id number] cc: Tamica Bullard; Krzysztof Martell MD EXAMINATION: [...] By: <Electronically signed by Charly Jackson Jr, in OV> 09/28/23 1502 DD/ 1449 TD/TT: Artificial Foliage Arranger: TA Procedure Note Donotuseinterpreter, Image - 09/28/2023 [place] [address] XRay Report Signed Patient: Tenisha Jones VMR#: [id number] 14 : 1960Acct:[id number] Age/Sex: 62 / FADM Date: 09/28/23 Loc: HO.ED Attending Dr: Ordering Physician: Tamica Bullard Date of Service: 09/28/23 Procedure(s): XR tibia fibula LT 2V Accession Number(s): [id number] cc: Tamica Bullard; NameKrzysztof MD EXAMINATION: XR TIBIA AND FIBULA, LEFT [...] DO inOV> 09/28/23 1502 DD/ 1449 TD/TT: Artificial Foliage Arranger: TA us [facility] External Provider IMG XR PROCEDURES Final Result * XR Knee 4+ Views Right (09/28/2023 1:34 PM EDT) Anatomical Region Laterality Modality Lower Extremities, Knee Right Radiogra phic Imaging 09/28/2023 1:34 PM EDT Narrative 09/28/2023 3:13 PM EDT [address] [address] XRay Report Signed Patient: Tenisha Jones V MR#: [id number] [birth year] : 1960 Acct:[id number] Age/Sex: 62 / F ADM Date: 09/28/23 Loc: HO.ED Attending Dr: Ordering Physician: Nella Mercer Date of Service: 09/28/23 Procedure(s): XR knee RT 4V Accession Number(s): [id number] cc: Krzysztof Martell MD; Nella Mercer EXAMINATION: [...] in OV> 09/28/23 1509 DD/ 1334 TD/TT: Artificial Foliage Arranger: TA Procedure Note Donotuseinterpreter, Image - 09/28/2023 [facility] [address] [place] [address] XRay Report Signed Patient: Tenisha Jones VMR#: [id number] 14 : 1960Acct:[id number] Age/Sex: 62 / FADM Date: 09/28/23 Loc: HO.ED Attending Dr: Ordering Physician: Nella Mercer Date of Service: 09/28/23 Procedure(s): XR knee RT 4V Accession Number(s): [id number] cc: Name,Krzysztof PERSON; eNlla Mercer EXAMINATION: XR KNEE, RIGHT CLINICAL INFORMATION: [...] DO inOV> 09/28/23 1509 DD/ 1334 TD/TT: Artificial Foliage Arranger: TA [facility] External Provider IMG XR PROCEDURES Final Result documented in this encounter Visit Diagnoses Diagnosis Vitamin B 12 deficiency Other B-complex deficiencies documented in this encounter Additional Health Concerns Assessment Noted Time PHQ-9 Depression Total Score: 0 05/29/19 24 9:06 AM EDT documented as of this encounter Care Teams Head Buyer Tobacco Relationship Specialty Start Date End Date Name, MD Krzysztof [address] [place] [address] PCP - General Family Medicine 02/12/18 documented as of this encounter
--- OUTSIDE RECORDS SUMMARY | 2024-12-22 16:27 | XMS_ITS | Encounter Summary ---
Author Organization [email or web address] Address [address] [facility] 7t [place] [address] Care Team Providers Care Dinkey Motor Operator Name Role Phone Name, Krzysztof PERSON Primary Care Provider [phone] Reason for Visit * Reason Onset Date Comments Med Refill 08/21/2024 Encounter Details Date Type Department Care Team ([facility] st Contact Info) Description 08/21/2024 Refill [facility] [address] [place], [place] [phone] Odilia Niño, LYNNETTE [address] [place] [address] Vitamin B 12 deficiency Social History Tobacco [...] Description 01/12/2025 1:30 PM EST Nurse Only [address] [address] 02/10/2025 1:30 PM EST Clinical Support [address] [address] Keely Person, SAMRA 02/18/2025 9:30 AM EST Office Visit [address] [address] Name, MD Krzysztof [address] [place] [address] documented as of this encounter Visit Diagnoses Diagnosis Vitamin B 12 deficiency Other B-complex deficiencies documented in this encounter Additional Health Concerns Assessment Noted Time PHQ-9 Depression Total Score: 0 05/29/19 24 9:06 AM EDT documented as of this encounter Care Teams Dinkey Motor Operator Relationship Specialty Start Date End Date Name, MD Krzysztof [address] [place] [address] PCP - General Family Medicine 02/12/18 documented as of this encounter
--- OUTSIDE RECORDS SUMMARY | 2024-12-22 16:27 | XMS_ITS | Clinical Summary ---
Author Organization [employer] Address [address] [place] [address] 7t [place] [address] Care Team Providers Care Wallpaper Consultant Name Role Phone Name, Krzysztof PERSON Primary Care Provider [phone] Allergies Active Allergy Reactions Criticality Noted Date [...] melatonin tablet One tab once a bedtime 022 Active trimethoprim-niesha ymyxin b (Polytrim) ophthalmic solution [...] not swallow. 1 each 5 024 Active cyanocobalamin (Vitamin B-12) 1000 MCG/ML injectionIndicat ions:Vitamin B 12 deficiency INJECT 1 ML INTRAMUSCULARLY EVERY MONTH 3 mL 3 025 Active PARoxetine (Paxil) 10 MG tabletIndication s:Anxiety TAKE 1 TABLET BY MOUTH EVERY DAY 90 tablet 3 025 Active levothyroxine (Synthroid, Levoxyl) 50 MCG tabletIndication s:Acquired hypothyroidism Take 1 tablet (50 mcg) by mouth before breakfast. 90 tablet 3 025 2025 Active polyethylene glycol, PEG, 3350 (Glycolax) 17 GM/SCOOP powderIndication s:Irritable bowel syndrome with both constipation and diarrhea DISSOLVE 17 GRAMS IN 8 OZ OF FLUID LIQUID DRINK DAILY DIRECTED 238 g 2 025 Active docusate sodium (Colace) 100 MG capsule TAKE 1 CAPSULE BY MOUTH TWICE A DAY 180 capsule 1 025 Active Probiotic, Lactobacillus, capsule Take 1 [...] split. 30 tablet 11 025 2025 Active D3-1000 25 MCG (1000 UT) capsuleIndicatio ns:Vitamin D deficiency TAKE 1 CAPSULE (25 MCG) BY MOUTH ONCE PER DAY. 90 capsule 3 025 Active polyethylene glycol, PEG, 3350 (Glycolax) 17 GM/SCOOP powder DISSOLVE 17 GRAMS IN 8 OZ OF FLUID LIQUID DRINK DAILY DIRECTED 238 g 3 025 Active tiZANidine (Zanaflex) 2 MG tablet TAKE 1 TABLET BY MOUTH EVERYDAY AT BEDTIME 30 tablet Active tiZANidine (Zanaflex) 2 MG tablet TAKE 1 TABLET BY MOUTH AT BEDTIME 30 tablet 025 2024 Discontinued HYDROcodone-acet aminophen (Palmer) 5-325 MG tabletIndication s:Lumbar back pain with radiculopathy affecting left lower extremity Take 1 tablet by mouth every 6 (six) hours if needed for severe pain for up to 28 days. 112 tablet 025 2024 nystatin (Mycostatin) 707379 UNIT/ML suspensionIndica tions:Oral thrush Take 5 mL (500,000 Units) by mouth 4 times daily for 14 days. Swish and spit before meals and bedtime 280 mL 025 2024 polyethylene glycol, PEG, 3350 (Miralax) 17 g packet Take 17 g by mouth Once per day. 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) 09/12/2023 Abnormal bowel habits 09/11/2023 Elevated serum [...] Encounters Date Type Department Care Team Description 12/13/2024 Refill [facility] [address] [facility] [place] [address] Name, MD Krzysztof 12/12/2024 9:30 AM EDT Nurse Only [facility] [address] [facility] [place] [address] Yvonne Danielson, SAMRA Vitamin B 12 deficiency 12/12/2024 Refill [facility] [address] [facility] [place] [address] Name, MD Krzysztof 12/12/2024 Travel 12/11/2024 Refill [facility] [address] [facility] [place] [address] Trina August NP Irritable bowel syndrome with both constipation and diarrhea 12/11/2024 Refill [facility] [address] [facility] [place] [address] Name, MD Krzysztof 12/11/2024 Travel 11/28/2024 9:20 AM EDT Office Visit [facility] [place] [address] Morris Brambila MD Oral thrush (Primary Dx) 11/28/2024 Refill [facility] [address] [place] [phone] Krzysztof Martell MD 11/28/2024 Travel 11/27/[address] [address] Krzysztof Martell MD 11/27/2024 Travel 11/25/[address] [address] Krzysztof Martell MD Nurse Triage 11/25/2024 Orders Only GENERIC EXTERNAL DATA DEPARTMENT Provider, Generic External Data 11/12/2024 9:30 AM EDT Clinical Support [address] [address] Chitra Madrid RN Encounter for immunization; Vitamin B 12 deficiency 11/12/2024 Travel 11/10/2024 10:30 AM EDT Telemedicine [address] [address] Keely Person, SAMRA Long-term current use of opiate analgesic 11/10/[address] [address] Keely Person, RN Lumbar back pain with radiculopathy affecting left lower extremity (Primary Dx) 11/10/2024 Travel 11/09/2024 Travel 11/08/[address] [address] Krzysztof Martell MD 10/25/2024 Refill [facility] [address] [place] [address] Krzysztof Martell MD Vitamin D deficiency 10/17/2024 2:00 PM EDT Office Visit [address] [address] Krzysztof Martell MD Chronic right hip pain (Primary Dx); NSAID long-term use; Hypothyroidism, unspecified type; Encounter for immunization 10/17/2024 Travel 10/16/2024 Telephone [facility] [address] [place] [address] Name, MD Krzysztof Chart Prep 09/25/2024 3:30 PM EDT Clinical Support [facility] [address] [place] [address] Chitra Madrid, RN Vitamin B 12 deficiency 09/25/2024 Travel from Last 3 Months Immunizations Immunization Administration Dates Next Due Influenza injectable quadriv alent IIV4 with preservative 11/06/2017,11/20/2016,11/25/2015 Influenza injectable quadriv alent preservative free 11/28/2022,11/01/2021,11/19/2020,10/27,10/31/2018 Influenza, IIV3, injectable 11/26/2020, 4 Influenza, seasonal, injecta ble, preservative free 11/12/2024,12/11/2023,12/08/2014 Moderna Covid-19 Vaccine 12+ 03/02/2021,05/20/19 21,04/21/2020 Moderna Covid-19 Vaccine 6+ Bivalent 01/18/2022 PPD Test 03/21/2001,03/19/2001 Pneumococcal Conjugate PCV 20 10/17/2024 Rabies, intramuscular 01/04/2013,01/01/2013 Td (adult), 5 Lf tetanus tox oid, preservative free, adsorbed 01/01/2013 Tdap 12/11/2023,10/21/2008 Social History Tobacco Use Types Packs/Day Years Used Date Smoking Tobacco: Every Day Cigarettes Passive Smoke Exposure: Current Smokeless Tobacco: Current Tobacco Cessation:Ready to Q [...] Sign Reading Time Taken Comments Blood Pressure 146/100 11/28/2024 9:08 AM EDT Pulse 97 11/28/2024 9:06 AM EDT Temperature 37.1 C (98.7 F) 11/28/2024 9:06 AM EDT Respiratory Rate 19 11/28/2024 9:06 AM EDT Oxygen Saturation 94% 11/28/2024 9:06 AM EDT Inhaled Oxygen Concentration - - Weight 98.5 kg (217 lb 3.2 oz) 10/17/2024 1:53 P M EDT Height 167.6 cm (5' 6 ) 10/17/2024 1:53 PM EDT Body Mass Index 35.06 10/17/2024 1:53 PM EDT Plan of Treatment Upcoming Encounters Date Type Department Care Team (Late st Contact Info) Description 01/12/2025 1:30 PM EST Nurse Only [address] [address] 02/10/2025 1:30 PM EST Clinical Support [address] [address] Keely Person, SAMRA 02/18/2025 9:30 AM EST Office Visit [address] [address] Name, MD Krzysztof [address] [place] [phone] Health Maintenance Due Date Last Done Comments CT Colonography 1960 FIT DNA/Cologuard 1960 FIT 1962 FOBT 1960 HIV Screening 1960 Sigmoidoscopy 1960 Hepatitis C Screening 1980 Zoster Vaccines (1 of 2) 2012 COVID-19 Vaccine ( season) 2024 01/18/2022, 03/02/2021, 05/19/2020, Additional history exists Mammogram 02/08/2025 02/09/2024, 01/13, 01/03/2022 Depression Monitoring 03/08/2025 09/05/2024, 025 Disability Screening 09/05/2025 09/05/2024 SDOH Screening 09/05/2025 09/05/2024 Alcohol/Substance Use Screening 10/17/2025 10/17/2024 Tobacco Screening 11/28/2025 11/28/2024 Colonoscopy 08/24/2026 08/24/2016 Colorectal Cancer Screening 08/24/2026 Cervical Cancer Screening 05/10/2027 HPV/Cotest 05/10/2027 Pap Smear 05/10/2027 05/09/2022 Lipid Panel 06/30/2027 06/29/2022, 04/12, 10/27/2020, Additional history exists DTaP/Tdap/Td Vaccines (4 - Td or Tdap) 12/10/2033 12/11/2023, 01/01/2013, 10/21/2008 RSV Patients and Patients Aged 60 years or older (1 - 1-dose 75+ series) 2037 Pneumococcal Vaccine: 50+ Years Completed 10/17/2024 Influenza Vaccine Completed 11/12/2024, , 11/28/2022, Additional history exists HIB Vaccines Aged Out [...] Priority Date/Time Associated Diagnosis Comments TSH Routine 11/25/2024 8:26 AM EDT T4, FREE Routine 11/25/2024 8:26 AM EDT TSH W/REFLEX TO FT4 Routine 11/25/2024 8 :26 AM EDT Hypothyroidism, unspecified type CBC WITH AUTO DIFFERENTIAL Routine 11/25/2024 8:26 AM EDT Chronic right hip pain NSAID long-term use COMPREHENSIVE METABOLIC PANEL Routine 11/25/2024 8:26 AM EDT Chronic right hip pain NSAID long-term use AMB REFERRAL TO ORTHOPAEDIC SURGERY Routine 11/17/2024 Tear of right acetabular labrum, sequela Trochanteric bursitis of right hip LIPID PANEL, STANDARD Routine 06/29/2022 7:58 AM EDT Hyperlipidemia, unspecified hyperlipidemia type NSAID long-term use Cobalamin deficiency Acquired hypothyroidism PAP/HPV Routine 05/09/2022 12:00 AM EDT MAMMOGRAPHY Routine 01/03/2022 2:56 PM EST COLONOSCOPY Routine 08/24/2016 from Last 3 Months or Most Recently Relevant to Health Maintenance Results * TSH W/Reflex to FT4 (11/25/2024 8:26 AM EDT) TSH reflex Free T4 3.45 0.32 - 4.0 uIU/mL [facility] Blood Venous blood specimen / Unknown 11/25/2024 8:26 AM EDT 11/25/2024 11:35 AM EDT us Krzysztof Name LAB BLOOD ORDERABLES Final Resul t [facility] [address] [place] [phone] * (ABNORMAL) CBC auto differential (11/25/2024 8:26 AM EDT) White Blood Count 10.9(H) 4.8 - 10.8 X10*3/uL [facility] Red Blood Count 5.18 4.20 - 5.50 X10*6/uL [facility] Hemoglobin 14.9 12.0 - 16.0 g/dl [facility] Hematocrit 48.3(H) 37.0 - 47.0 % [facility] Mean Corpuscular Volume 93.2 80.0 - 98.0 fL [facility] Mean Corpuscular Hemoglobin 28.8 27.0 - 33.0 pg [facility] Mean Corpuscular HGB Conc 30.8(L) 31.0 - 35.0 g/dl [facility] Red Cell Distribution Width 14.6 11.0 - 16.0 % [facility] Platelet Count 318 160 - 400 X10*3/uL [facility] Mean Platelet Volume 10.3 9.4 - 12.3 fL [facility] Neutrophils Percent Auto 67.9 45 - 73 % [facility] Imm Gran Pct Auto 0.3 0.0 - 0.4 % [facility] Lymphocytes Percent Auto 22.3 20 - 40 % [facility] Monocytes Percent Auto 8.0 2 - 11 % [facility] Eosinophils Percent Auto 1.3 0 - 4 % [facility] Basophils Percent Auto 0.2 0 - 2 % [facility] NRBC Pct Auto 0.0 0.0 - 0.2 /100WBC [facility] Neutrophils Absolute Auto 7.4 2.0 - 8.3 x10*3/uL [facility] Imm Gran Abs Auto 0.03 0.00 - 0.03 X10*3/uL [facility] Lymphocytes Absolute Auto 2.4 1.2 - 4.9 X10*3/uL [facility] Monocytes Absolute Auto 0.9 0.1 - 1.2 X10*3/uL [facility] Eosinophils Absolute Auto 0.1 0.0 - 0.4 X10*3/uL [facility] Basophils Absolute Auto 0.0 0.0 - 0.2 X10*3/uL [facility] NRBC Abs Auto 0.000 0.0 - 0.012 X10*3/uL [facility] Blood Venous blood specimen / Unknown 11/25/2024 8:26 AM EDT 11/25/2024 11:31 AM EDT us Krzysztof Name LAB BLOOD ORDERABLES Final Resul t [facility] [address] [place] [phone] * TSH (11/25/2024 8:26 AM EDT) Thyroid Stimulating Hormone 0.76 0.32 - 4.0 uIU/mL [facility] Comment:TSH 3rd Generation ( [facility]) 11/25/2024 8:26 AM EDT 11/25/2024 11:35 AM EDT us Generic External Data Provider LAB BLOOD ORDERAB LES Final Result Performing Organization Address City/[facility]/ZIP Co de Phone Number [facility] [address] [place] [phone] * T4, Free (11/25/2024 8:26 AM EDT) Free T4 (Free Thyroxine) 1.23 0.71 - 1.85 ng/dL [facility] 11/25/2024 8:26 AM EDT 11/25/2024 11:35 AM EDT Generic External Data Provider LAB BLOOD ORDERAB LES Final Result Performing Organization Address [facility] de Phone Number [facility] [address] [place] [phone] * (ABNORMAL) Comprehensive Metabolic Panel (11/25/2024 8:26 AM EDT) Pathologist [facility] Sodium 140 135 - 145 mmol/L [facility] Potassium 4.4 3.3 - 5.1 mmol/L [facility] Chloride 106 96 - 108 mmol/L [facility] Carbon Dioxide 27 22 - 29 mmol/L [facility] Anion Gap 11(L) 12 - 20 [facility] Urea Nitrogen (BUN) 17(H) 9 - 16 mg/dL [facility] Creatinine, Serum 0.77 0.5 - 1.4 mg/dL [facility] Estimated Glomerular Filt Rate >60 [facility] Comment:Chronic Kidney Disea se: Estimated GFR < 60 mL/min/1.45d8Fvxbie Kidney Disease: Estimated GFR < 15 mL/min/1.73m2 Glucose 85 60 - 115 mg/dL [facility] Calcium 9.4 8.4 - 10.2 mg/dL [facility] Bilirubin, Total 0.5 0.0 - 1.0 mg/dL [facility] Aspartate Amino Transferase 21 5 - 31 U/L [facility] Alanine Aminotransferase 22 0 - 31 U/L [facility] Total Protein 6.9 6.5 - 8.0 g/dL [facility] Albumin Level 4.0 3.5 - 5.0 g/dL [facility] Alkaline Phosphatase 94 39 - 117 U/L [facility] Blood Venous blood specimen / Unknown 11/25/2024 8:26 AM EDT 11/25/2024 11:35 AM EDT us Krzysztof Martell MD LAB BLOOD ORDERABLES Final Resul t [facility] [address] [place] [phone] * Referral to Orthopaedic Surgery (11/17/2024) us Krzysztof Martell MD OUTPATIENT REFERRAL ORDERABLES F inal Result * (ABNORMAL) Lipid Panel, Standard (06/29/2022 7:58 AM EDT) Cholesterol, Total 267(H) <200 mg/dL [facility] HDL Cholesterol 52 > OR = 50 mg/dL [facility] Triglycerides 151(H) <150 mg/dL [facility] LDL Cholesterol 185(H) mg/dL (calc) [facility] Comment: Reference range: <100 Desirable range <100 mg/dL for primary prevention; <70 mg/dL for patients with CHD or diabetic patients with > or = 2 CHD risk factors. LDL-C is now calculated using the Leora calculation, which is a validated novel method providing better accuracy than the Friedewald equation in the estimation of LDL-C. Ankur ALMANZAR et al. JOSE ALEJANDRO. 2013;310(19): 2496-7574 (http://education.Cognea.Moment/faq/AYQ305) Chol/HDLC Ratio 5.1(H) <5.0 (calc) [facility] Non-HDL Cholesterol 215(H) <130 mg/dL (calc) [facility] Comment: For patients with diabetes plus 1 major ASCVD risk factor, treating to a non-HDL-C goal of <100 mg/dL (LDL-C of <70 mg/dL) is considered a therapeutic option. Blood Venous blood specimen / Unknown 06/29/2022 7:58 AM EDT 06/29/2022 7:58 AM EDT Narrative [facility] - 06/29/2022 10:32 PM EDT FASTING:YES FASTING: YES Krzysztof Name LAB BLOOD ORDERABLES Final Resul t [facility] [address] [place] [phone] [facility] [address] [place] [address] * Pap Smear (05/09/2022 12:00 AM EDT) Historical Provider HEALTH MAINTENANCE Final Result * Mammography (01/03/2022 2:56 PM EST) Mammogram Birads-1 Anatomical Region Laterality Modality Other Narrative 01/03/2022 2:56 PM EST Recommended routine annual mammo ( [facility]) Result [facility] Historical Provider HEALTH MAINTENANCE Edited Result - Final * Colonoscopy (08/24/2016) Colonoscopy performed Historical Provider HEALTH MAINTENANCE Final Result from Last 3 Months or Most Recently Relevant to Health Maintenance Insurance MEDICARE [facility] STANDARD * Guarantor: Tenisha Jones V Account Type Relation to Patient Date of Phone Billing Address Personal/Family Self 1960 [address] [place] [address] * Guarantor: Tenisha Jones V Account Type Relation to Patient Date of Phone Billing Address Personal/Family Self 1960 [address] [place] [address] * Guarantor: Tenisha Jones V Account Type Relation to Patient Date of Phone Billing Address Personal/Family Self 1960 [address] [place] [address] Care Teams Wallpaper Consultant Relationship Specialty Start Date End Date Name, MD Krzysztof [address] [place] [phone] PCP - General Family Medicine 02/12/18
--- OUTSIDE RECORDS SUMMARY | 2024-12-22 16:27 | XMS_ITS | Encounter Summary ---
Author Organization [employer] Address [address] [facility] 7t [place] [address] Care Team Providers Care Sound Tester Name Role Phone Name, Krzysztof PERSON Primary Care Provider [phone] Reason for Visit * Reason Onset Date Comments Med Refill 05/21/2024 Encounter Details Date Type Department Care Team (Late st Contact Info) Description 05/21/2024 Refill [facility] [address] [place] [address] Odilia Niño FNP [address] [place] [address] Vitamin B 12 deficiency Social History Tobacco [...] 01/12/2025 1:30 PM EST Nurse Only [address] [address] 02/10/2025 1:30 PM EST Clinical Support [address] [address] Keely Person, SAMRA 02/18/2025 9:30 AM EST Office Visit [address] [address] Name, MD Krzysztof [address] [place] [address] documented as of this encounter Visit Diagnoses Diagnosis Vitamin B 12 deficiency Other B-complex deficiencies documented in this encounter Additional Health Concerns Assessment Noted Time PHQ-9 Depression Total Score: 0 05/29/19 24 9:06 AM EDT documented as of this encounter Care Teams Sound Tester Relationship Specialty Start Date End Date Name, MD Krzysztof [address] [place] [phone] PCP - General Family Medicine 02/12/18 documented as of this encounter
--- OUTSIDE RECORDS SUMMARY | 2024-12-22 16:28 | XMS_ITS | Encounter Summary ---
Author Organization [employer] Address [address] [facility] 7 [place] [address] Care Team Providers Care Order Puller Name Role Phone NameKrzysztof MD Primary Care Provider [phone] Reason for Visit * Reason Onset Date Comments PA Clarification 12/19/2022 Prior Authorization 12/19/2022 Phenobarbita l Encounter Details Date Type Department Care Team ([facility] st Contact Info) Description 12/19/2022 Telephone [facility] [address] [place] [address] Name, MD Krzysztof [address] [place] [address] PA Clarification ; Prior Authorization (Phenobarbital) Social [...] 1:27 PM EST TW returned call to [facility], a clarification of dosage was needed and was corrected with information on in chart. [facility] determined that a PA was not needed for this medication and that the Pharmacy was to call the Pharmacy Help Desk at [phone]. Pharmacy was called and informed. * Telephone Encounter - Mauro Figueroa - 12/19/2022 11:53 AM EST Tc from Cam with [facility] requesting a call from a nurse or provider in regards to a PA form that was received. ( Did specify which medication) Cam states that in order to approve some verification and clarification most be revised. Please contact Cam at [phone] documented in this encounter Plan of Treatment Upcoming Encounters Date Type Department Care Team (Late st Contact Info) Description 01/12/2025 1:30 PM EST Nurse Only [facility] [address] [place] [phone] 02/10/2025 1:30 PM EST Clinical Support [address] [address] Keely Person RN 02/18/2025 9:30 AM EST Office Visit [address] [address] Name, MD Krzysztof [address] [place] [address] documented as of this encounter Visit Diagnoses Not on filedocumented in this encounter Care Teams Order Puller Relationship Specialty Start Date End Date Name, MD Krzysztof [address] [place] [address] PCP - General Family Medicine 02/12/18 documented as of this encounter
--- OUTSIDE RECORDS SUMMARY | 2024-12-22 16:28 | XMS_ITS | Encounter Summary ---
Author Organization [employer] Address [address] [facility] 7t [place] [address] Care Team Providers Care Studio Operation Engineer Name Role Phone Name, Krzysztof PERSON Primary Care Provider [phone] Reason for Visit * Reason Onset Date Comments Med Refill 09/16/2024 Encounter Details Date Type Department Care Team ([facility] st Contact Info) Description 09/16/2024 Refill [facility] [address] [place], [place] [phone] Trina August NP [address] [place], [place] [phone] Irritable bowel syndrome with both constipation and [...] 01/12/2025 1:30 PM EST Nurse Only [address] [address] 02/10/2025 1:30 PM EST Clinical Support [address] [address] Keely Person, SAMRA 02/18/2025 9:30 AM EST Office Visit [address] [address] Name, MD Krzysztof [address] [place] [address] documented as of this encounter Visit Diagnoses Diagnosis Irritable bowel syndrome with both constipation and diarrhea documented in this encounter Additional Health Concerns Assessment Noted Time PHQ-9 Depression Total Score: 15 025 3:53 PM EDT documented as of this encounter Care Teams Studio Operation Engineer Relationship Specialty Start Date End Date NameKrzysztof MD [address] [place] [phone] PCP - General Family Medicine 02/12/18 documented as of this encounter
--- OUTSIDE RECORDS SUMMARY | 2024-12-22 16:28 | XMS_ITS | Encounter Summary ---
Author Organization [employer] Address [address] [place] [address] 7t [place] [address] Care Team Providers Care Bridge Welder Name Role Phone Name, Krzysztof PERSON Primary Care Provider [phone] Encounter Details Date Type Department Care Team (Late st Contact Info) Description 08/31/2022 Orders Only [facility] [address] [place] [phone] Name, MD Krzysztof [address] [place] [phone] Subclinical hypothyroidism Social History Tobacco Use Types [...] Description 01/12/2025 1:30 PM EST Nurse Only [facility] [address] [place] [phone] 02/10/2025 1:30 PM EST Clinical Support [facility] [place] [address] Keely Person RN 02/18/2025 9:30 AM EST Office Visit [facility] [address] [facility] [place] [address] Name, MD [place] [address] documented as of this encounter Procedures Procedure Name Priority Date/Time Associated Diagnosis Comments TSH W/REFLEX TO FT4 Routine 08/31/2022 8:48 AM EDT Subclinical hypothyroidism documented in this encounter Results * (ABNORMAL) TSH W/Reflex to FT4 (08/31/2022 8:48 AM EDT) TSH reflex Free T4 4.39(H) 0.32 - 4.0 uIU/mL [facility] Blood 08/31/2022 8:48 AM EDT 08/31/2022 11:21 AM EDT us Krzysztof Martell MD LAB BLOOD ORDERABLES Final Resul t [facility] [address] [place] [phone] documented in this encounter Visit Diagnoses Diagnosis Subclinical hypothyroidism Other specified acquired hypothyroidism documented in this encounter Care Teams Bridge Welder Relationship Specialty Start Date End Date Name, MD [place] [address] PCP - General Family Medicine 02/12/18 documented as of this encounter
--- OUTSIDE RECORDS SUMMARY | 2024-12-22 16:28 | XMS_ITS | Encounter Summary ---
Author Organization [employer] Address [address] [place] [address] 7 [place] [address] Care Team Providers Care Horseback Riding Instructor Name Role Phone Name, Krzysztof PERSON Primary Care Provider [phone] Reason for Visit * Reason Onset Date Comments Med Refill 08/21/2022 Encounter Details Date Type Department Care Team (Late st Contact Info) Description 08/21/2022 Refill [facility] [address] [place] [address] [phone] Name, MD Krzysztof [address] [place] [address] Social History Tobacco Use Types Packs/Day Years [...] Department Care Team (Late Contact Info) Description 01/12/2025 1:30 PM EST Nurse Only [facility] [address] [place] [address] 02/10/2025 1:30 PM EST Clinical Support [facility] [place] [address] Keely Person RN 02/18/2025 9:30 AM EST Office Visit [facility] [place] [address] Name, MD [place] [address] documented as of this encounter Visit Diagnoses Not on filedocumented in this encounter Care Teams Horseback Riding Instructor Relationship Specialty Start Date End Date Name, MD [place] [address] PCP - General Family Medicine 02/12/18 documented as of this encounter
--- OUTSIDE RECORDS SUMMARY | 2024-12-22 16:28 | XMS_ITS | Encounter Summary ---
Author Organization [employer] Address [address] [place] [address] 7 [place] [address] Care Team Providers Care Geological Engineer Name Role Phone Name, Krzysztof PERSON Primary Care Provider [phone] Encounter Details Date Type Department Care Team ([facility] st Contact Info) Description 01/18/2022 Abstract [facility] [address] [place] [address] Name, MD Krzysztof [address] [place] [address] Social History Tobacco Use Types Packs/Day Years [...] Questionnaire -2 Score 0 01/18/2022 10:31 AM EST Tatyana Luna [place] documented as of this encounter Plan of Treatment Upcoming Encounters Date Type Department Care Team (Late st Contact Info) Description 01/12/2025 1:30 PM EST Nurse Only [address] [address] 02/10/2025 1:30 PM EST Clinical Support [address] [address] Keely Person, RN 02/18/2025 9:30 AM EST Office Visit [address] [address] Name, MD Krzysztof [address] [place] [address] documented as of this encounter Visit Diagnoses Not on filedocumented in this encounter Care Teams Geological Engineer Relationship Specialty Start Date End Date Name, MD Krzysztof [address] [place] [address] PCP - General Family Medicine 02/12/18 documented as of this encounter
--- OUTSIDE RECORDS SUMMARY | 2024-12-22 16:28 | XMS_ITS | Encounter Summary ---
Author Organization [employer] Address [address] [facility] 7t [place] [address] Care Team Providers Care Flue Blower Name Role Phone Name, Krzysztof PERSON Primary Care Provider [phone] Reason for Visit * Reason Comments Med Refill Encounter Details Date Type Department Care Team ([facility] st Contact Info) Description 11/28/2024 Refill [facility] [address] [place], [place] [phone] Name, MD Krzysztof [address] [place] [address] Social History Tobacco Use Types Packs/Day Years Used Date Smoking Tobacco: Every Day Cigarettes Passive Smoke Exposure: Current Smokeless Tobacco: Current Alcohol Use Standard Drinks/Week [...] Description 01/12/2025 1:30 PM EST Nurse Only [address] [address] 02/10/2025 1:30 PM EST Clinical Support [address] [address] Keely Person RN 02/18/2025 9:30 AM EST Office Visit [address] [address] Name, MD Krzysztof [address] [place] [address] documented as of this encounter Visit Diagnoses Not on filedocumented in this encounter Additional Health Concerns Assessment Noted Time PHQ-9 Depression Total Score: 15 025 3:53 PM EDT documented as of this encounter Care Teams Flue Blower Relationship Specialty Start Date End Date NameKrzysztof MD [address] [place] [address] PCP - General Family Medicine 02/12/18 documented as of this encounter
--- OUTSIDE RECORDS SUMMARY | 2024-12-22 16:28 | XMS_ITS | Encounter Summary ---
Author Organization [employer] Address [address] [place] [address] 7 [place] [address] Care Team Providers Care Rod Mill Operator Name Role Phone Name, Krzysztof PERSON Primary Care Provider [phone] Encounter Details Date Type Department Care Team (Late st Contact Info) Description 07/01/2022 Orders Only [facility] MED & PEDS [address] [place], [place] [phone] Nils Meza MD 505 [place] [address] Social History Tobacco Use Types Packs/Day Years [...] Description 01/12/2025 1:30 PM EST Nurse Only [address] [phone] 02/10/2025 1:30 PM EST Clinical Support [address] [phone] Keely Person, SAMRA 02/18/2025 9:30 AM EST Office Visit [address] [phone] Krzysztof Martell MD [address] [place] [address] documented as of this encounter Visit Diagnoses Not on filedocumented in this encounter Care Teams Rod Mill Operator Relationship Specialty Start Date End Date Name, MD Krzysztof [address] [place] [address] PCP - General Family Medicine 02/12/18 documented as of this encounter
--- OUTSIDE RECORDS SUMMARY | 2024-12-22 16:28 | XMS_ITS | Encounter Summary ---
Author Organization [employer] Address [address] [facility] [address] 7t [place] [address] Care Team Providers Care Director Sales And Trade Marketing Name Role Phone Name, Krzysztof PERSON Primary Care Provider Reason for Visit * Reason Onset Date Comments Durable Medical Equipment 02/21/2023 Encounter Details Date Type Department Care Team ([facility] st Contact Info) Description 02/21/2023 Telephone [facility] [address] [place], [place] [phone] Name, MD Krzysztof [address] [place] [address] Durable Medical Equipment Social History Tobacco Use [...] requesting script to be send to a [employer] that does deliver DME. documented in this encounter Plan of Treatment Upcoming Encounters Date Type Department Care Team (Late st Contact Info) Description 01/12/2025 1:30 PM EST Nurse Only [facility] [address] [place] [phone] 02/10/2025 1:30 PM EST Clinical Support [address] [address] Keely Person RN 02/18/2025 9:30 AM EST Office Visit [address] [address] Name, MD Krzysztof [address] [place] [address] documented as of this encounter Visit Diagnoses Not on filedocumented in this encounter Care Teams Director Sales And Trade Marketing Relationship Specialty Start Date End Date Name, MD Krzysztof [address] [place] [address] PCP - General Family Medicine 02/12/18 documented as of this encounter
== END 2024-12-22 14:53 | disposition home or self-care (01) ==
LOC: HO.HGI 14:08
PROVIDERS: PCP Internal Medicine Geriatric Medicine; Visit Provider Internal Medicine Gastroenterology
DX: K52.9 Noninfective gastroenteritis and colitis, unspecified (principal)
CPT/HCPCS: 99213

== ENCOUNTER → 2024-12-22 14:07 | Outpatient (BNVA) | payer MEDICARE, MEDICAID, SELFPAY | PROVIDERS: PCP Internal Medicine Geriatric Medicine; Visit Provider Internal Medicine Gastroenterology | DX: K52.9 Noninfective gastroenteritis and colitis, unspecified (principal) | CPT/HCPCS: 99212 ==

== ENCOUNTER 2024-12-25 14:22 | Outpatient (REF) | payer MEDICARE, MEDICAID, SELFPAY ==
[2024-12-25 15:58] LABS: CDiff Gene PCR NEGATIVE (Negative)
[2024-12-25 16:13] LABS: E. coli EAEC Not Detected (Not Detect.); E. coli EPEC Not Detected (Not Detect.); E. coli ETEC Not Detected (Not Detect.); E. coli STEC Not Detected (Not Detect.); Shigella sp./EIEC Not Detected (Not Detect.)
--- OUTSIDE RECORDS SUMMARY | 2024-12-25 17:49 | XMS_ITS | Encounter Summary ---
Author Organization [facility] Address [address] [place] [address] Care Team Providers Care Product Marketing Manager Name Role Phone Name, Krzysztof PERSON Primary Care Provider Unavailabl e Encounter Details Date Type Department Care Team Description 03/08/2022 Release of Information Medical Records [address] [place] [address] Abstract, Provider Social History Tobacco Use Types [...] filedocumented in this encounter Care Teams Product Marketing Manager Relationship Specialty Start Date End Date Name, MD Krzysztof PCP - General Internal Medicine 04/06/15 documented as of this encounter
--- OUTSIDE RECORDS SUMMARY | 2024-12-25 17:49 | XMS_ITS | Encounter Summary ---
Author Organization [facility] Address [address] [place] [address] Care Team Providers Care Repair Welder Name Role Phone Name, Krzysztof PERSON Primary Care Provider Unavailabl e Reason for Visit * Reason Onset Date Comments Surgery (Schedule) 01/26/2022 Encounter Details Date Type Department Care Team Description 01/26/2022 Telephone Urogy[address] [phone] Nikole Arzola MD [address] [place] [address] [place] [address] Surgery (Schedule) Social History Tobacco Use Types [...] suspected to have Coronavirus/COVID-19? No / Unsure 01/24/2022 8:28 AM EST documented as of this encounter Miscellaneous Notes * Telephone Encounter - Slime Renee Nitin - 01/30/2022 2:15 PM EST Please also call patient to schedule urodynamics (60 min appt) as well as a televisit (1 week after) 1st message left to schedule urodynamics procedure and telehealth visit 1 week after * Telephone Encounter - Erica Sukh - 01/26/2022 2:30 PM EST Patient is calling to let us know that she would like to go forward with Dr. Arzola's treatment plan/surgery. She was advised to call our office once she had made a decision. She is requesting a call back to discuss next steps. documented in this encounter Plan of Treatment Not on file documented as of this encounter Visit Diagnoses Not on filedocumented in this encounter Care Teams Repair Welder Relationship Specialty Start Date End Date Name, MD Krzysztof PCP - General Internal Medicine 04/06/15 documented as of this encounter
--- OUTSIDE RECORDS SUMMARY | 2024-12-25 17:49 | XMS_ITS | Encounter Summary ---
Author Organization 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
--- OUTSIDE RECORDS SUMMARY | 2024-12-25 17:49 | XMS_ITS | Encounter Summary ---
Author Organization [facility] Address [address] [place] [address] Care Team Providers Care Single Spindle Screw Machine Operator Name Role Phone Name, Krzysztof PERSON Primary Care Provider Unavailabl e Encounter Details Date Type Department Care Team Description 06/06/2017 Transfer Records Medical Records [address] [place] [address] Abstract, Provider Social History Tobacco Use Types [...] on filedocumented in this encounter Care Teams Single Spindle Screw Machine Operator Relationship Specialty Start Date End Date Name, MD Krzysztof PCP - General Internal Medicine 04/06/15 documented as of this encounter
--- OUTSIDE RECORDS SUMMARY | 2024-12-25 17:49 | XMS_ITS | Encounter Summary ---
Author Organization [facility] Address [address] [place] [address] Care Team Providers Care Truck Cleaner Name Role Phone Name, Krzysztof PERSON Primary Care Provider Unavailabl e Encounter Details Date Type Department Care Team Description 04/30/2017 Business Doc Medical Records [address] [place] [address] Abstract, Provider Social History Tobacco Use Types [...] on filedocumented in this encounter Care Teams Truck Cleaner Relationship Specialty Start Date End Date Name, MD Krzysztof PCP - General Internal Medicine 04/06/15 documented as of this encounter
--- OUTSIDE RECORDS SUMMARY | 2024-12-25 17:49 | XMS_ITS | Encounter Summary ---
Author Organization [facility] Address [address] [place] [address] Care Team Providers Care At Risk Specialist Name Role Phone Name, Krzysztof PERSON Primary Care Provider Unavailabl e Encounter Details Date Type Department Care Team Description 03/06/2022 Release of Information Medical Records [address] [place] [phone] Abstract, Provider Social History Tobacco Use Types [...] AM EST documented as of this encounter Nursing Notes * Tenisha Diaz - 03/06/2022 8:40 PM EST FAXED TO [facility] TO OBTAIN RECORDS. 03/06/22 ID# [id number] documented in this encounter Plan of Treatment Not on file documented as of this encounter Visit Diagnoses Not on filedocumented in this encounter Care Teams At Risk Specialist Relationship Specialty Start Date End Date Name, MD Krzysztof PCP - General Internal Medicine 04/06/15 documented as of this encounter
--- OUTSIDE RECORDS SUMMARY | 2024-12-25 17:49 | XMS_ITS | Encounter Summary ---
Author Organization [employer] Address [address] [place] [address] 7 [place] [address] Care Team Providers Care Accounting Intern Name Role Phone Name, Krzysztof PERSON Primary Care Provider [phone] Encounter Details Date Type Department Care Team (Late st Contact Info) Description 08/31/2022 Orders Only [facility] [address] [place] [address] [phone] Name, MD Krzysztof [address] [place] [address] Subclinical hypothyroidism Social History Tobacco Use Types [...] Description 01/12/2025 1:30 PM EST Nurse Only [facility] [address] [place] [address] [phone] 02/10/2025 1:30 PM EST Clinical [facility] [place] [address] Keely Person RN 02/18/2025 9:30 AM EST Office Visit [facility] [place] [address] Name, MD [place] [address] documented as of this encounter Procedures Procedure Name Priority Date/Time Associated Diagnosis Comments TSH W/REFLEX TO FT4 Routine 08/31/2022 8:48 AM EDT Subclinical hypothyroidism documented in this encounter Results * (ABNORMAL) TSH W/Reflex to FT4 (08/31/2022 8:48 AM EDT) TSH reflex Free T4 4.39(H) 0.32 - 4.0 uIU/mL [facility] Blood 08/31/2022 8:48 AM EDT 08/31/2022 11:21 AM EDT us Krzysztof Martell MD LAB BLOOD ORDERABLES Final Resul t [facility] [address] [place] [phone] documented in this encounter Visit Diagnoses Diagnosis Subclinical hypothyroidism Other specified acquired hypothyroidism documented in this encounter Care Teams Accounting Intern Relationship Specialty Start Date End Date Name, MD [place] [address] PCP - General Family Medicine 02/12/18 documented as of this encounter
--- OUTSIDE RECORDS SUMMARY | 2024-12-25 17:49 | XMS_ITS | Encounter Summary ---
Author Organization [facility] Address [address] [place] [address] Care Team Providers Care Optician Manager Name Role Phone Name, Krzysztof PERSON Primary Care Provider Unavailabl e Encounter Details Date Type Department Care Team Description 05/03/2017 Release of Information Medical Records [address] [place] [address] Abstract, Provider Social History Tobacco Use Types [...] on filedocumented in this encounter Care Teams Optician Manager Relationship Specialty Start Date End Date Name, MD Krzysztof PCP - General Internal Medicine 04/06/15 documented as of this encounter
--- OUTSIDE RECORDS SUMMARY | 2024-12-25 17:49 | XMS_ITS | Encounter Summary ---
Author Organization [employer] Address [address] [place] [address] 7 [place] [address] Care Team Providers Care Documentation Lead Name Role Phone Name, Krzysztof PERSON Primary Care Provider Encounter Details Date Type Department Care Team (Late st Contact Info) Description 07/01/2022 Orders Only [facility] CHC MED & PEDS [address] [place], [place] [phone] Nils Meza MD [address] [place] [address] Social History Tobacco Use Types Packs/Day Years [...] Description 01/12/2025 1:30 PM EST Nurse Only [address] [phone] 02/10/2025 1:30 PM EST Clinical Support [address] [phone] Keely Person, SAMRA 02/18/2025 9:30 AM EST Office Visit [address] [phone] Krzysztof Martell MD [address] [place] [address] documented as of this encounter Visit Diagnoses Not on filedocumented in this encounter Care Teams Documentation Lead Relationship Specialty Start Date End Date Name, MD Krzysztof [address] [place] [address] PCP - General Family Medicine 02/12/18 documented as of this encounter
--- OUTSIDE RECORDS SUMMARY | 2024-12-25 17:49 | XMS_ITS | Encounter Summary ---
Author Organization [employer] Address [address] [place] [address] 7 [place] [address] Care Team Providers Care Pasta Press Operator Name Role Phone Name, Krzysztof PERSON Primary Care Provider [phone] Reason for Visit * Reason Onset Date Comments Med Refill 08/21/2022 Encounter Details Date Type Department Care Team (Late st Contact Info) Description 08/21/2022 Refill [facility] MEDICINE [address] [place] [address] [phone] Name, MD Krzysztof [address] [place] [address] Social History Tobacco Use Types Packs/Day Years [...] 01/12/2025 1:30 PM EST Nurse Only [facility] [address] [place] [address] 02/10/2025 1:30 PM EST Clinical Support [facility] [place] [address] Keely Person RN 02/18/2025 9:30 AM EST Office Visit [facility] [place] [address] Name, MD [place] [address] documented as of this encounter Visit Diagnoses Not on filedocumented in this encounter Care Teams Pasta Press Operator Relationship Specialty Start Date End Date Name, [place] [address] PCP - General Family Medicine 02/12/18 documented as of this encounter
--- OUTSIDE RECORDS SUMMARY | 2024-12-25 17:49 | XMS_ITS | Encounter Summary ---
Author Organization [facility] Address [address] [place] [address] Care Team Providers Care Devulcanizer Charger Name Role Phone Name, Krzysztof PERSON Primary Care Provider Unavailabl e Encounter Details Date Type Department Care Team Description 03/01/2022 Orders Only Urogynecology [address] [phone] Nikole Arzola MD [address] [place] [address] [place] [address] Uterovaginal prolapse, incomplete (Primary Dx); FATOU (stress urinary incontinence, female); Overactive bladder; Cystocele, midline; Rectocele Social History Tobacco Use Types Packs/Day Years [...] as of this encounter Visit Diagnoses Diagnosis Uterovaginal prolapse, incomplete- Primary FATOU (stress urinary incontinence, female) Female stress incontinence Overactive bladder Hypertonicity of bladder Cystocele, midline Rectocele documented in this encounter Care Teams Devulcanizer Charger Relationship Specialty Start Date End Date Name, MD Krzysztof PCP - General Internal Medicine 04/06/15 documented as of this encounter
--- OUTSIDE RECORDS SUMMARY | 2024-12-25 17:49 | XMS_ITS | Encounter Summary ---
Author Organization [employer] Address [address] [place] [address] 7t [place] [address] Care Team Providers Care Hot Dipper Name Role Phone Name, Krzysztof PERSON Primary Care Provider [phone] Encounter Details Date Type Department Care Team (Late Contact Info) Description 07/14/2022 Abstract [facility] MEDICINE [address] [place] [address] [phone] Name, MD Krzysztof [address] [place] [phone] Social History Tobacco Use Types Packs/Day Years [...] Upcoming Encounters Date Type Department Care Team ([facility] Contact Info) Description 01/12/2025 1:30 PM EST Nurse Only [facility] [address] [place] [address] [phone] 02/10/2025 1:30 PM EST Clinical Support [facility] [address] [facility] [place] [address] Keely Person RN 02/18/2025 9:30 AM EST Office Visit [facility] [place] [address] Name, MD Krzysztof [facility] [place] [address] documented as of this encounter Procedures Procedure [...] on filedocumented in this encounter Care Teams Hot Dipper Relationship Specialty Start Date End Date Name, MD Krzysztof [facility] [place] [address] PCP - General Family Medicine 02/12/18 documented as of this encounter
--- OUTSIDE RECORDS SUMMARY | 2024-12-25 17:49 | XMS_ITS | Encounter Summary ---
Author Organization [facility] Address [address] [place] [address] Care Team Providers Care 4 H Youth Development Specialist Name Role Phone Name, Krzysztof PERSON Primary Care Provider Unavailabl e Name, Krzysztof PERSON Primary Care Provider Unavailabl e Encounter Details Date Type Department Care Team Description 02/14/2011 [employer] Report Medical Records [address] [place] [address] Babar Thurman MD Social History Tobacco Use [...] on filedocumented in this encounter Care Teams 4 H Youth Development Specialist Relationship Specialty Start Date End Date Krzysztof Martell MD PCP - General Internal Medicine 12/22/10 04/05/15 Krzysztof Martell MD PCP - General Internal Medicine 04/06/15 documented as of this encounter
--- OUTSIDE RECORDS SUMMARY | 2024-12-25 17:49 | XMS_ITS | Encounter Summary ---
Author Organization [facility] Address [address] [place] [address] Care Team Providers Care New Grad Rn Name Role Phone Krzysztof Arellano MD Primary Care Provider Unavailabl e Krzysztof Arellano MD Primary Care Provider Unavailabl e Reason for Visit * Reason Onset Date Comments Follow-up Appt Unavailable 01/26/2012 Encounter Details Date Type Department Care Team Description 01/26/2012 Telephone Adult Medicine [address] [address] NameKrzysztof MD Follow-up Appt Unavailable Social History [...] on filedocumented in this encounter Care Teams New Grad Rn Relationship Specialty Start Date End Date Name, MD Krzysztof PCP - General Internal Medicine 12/22/10 04/05/15 Name, MD Krzysztof PCP - General Internal Medicine 04/06/15 documented as of this encounter
--- OUTSIDE RECORDS SUMMARY | 2024-12-25 17:49 | XMS_ITS | Encounter Summary ---
Author Organization [facility] Address [address] [place] [address] Care Team Providers Care Lumber Sticker Name Role Phone Name, Krzysztof PERSON Primary Care Provider Unavailabl e Encounter Details Date Type Department Care Team Description 03/24/2022 Transfer Records Medical Records [address] [place] [address] Abstract, Provider Social History Tobacco Use Types [...] on filedocumented in this encounter Care Teams Lumber Sticker Relationship Specialty Start Date End Date Name, MD Krzysztof PCP - General Internal Medicine 04/06/15 documented as of this encounter
--- OUTSIDE RECORDS SUMMARY | 2024-12-25 17:50 | XMS_ITS | Encounter Summary ---
Author Organization [employer] Address [address] [facility] 7t [place] [address] Care Team Providers Care Self Propelled Mining Machine Operator Name Role Phone Name, Krzysztof PERSON Primary Care Provider [phone] Reason for Visit * Reason Onset Date Comments Med Refill 09/16/2024 Encounter Details Date Type Department Care Team ([facility] st Contact Info) Description 09/16/2024 Refill [facility] MEDICINE [address] [place], [place] [phone] Trina August NP [address] [place], [place] [phone] Irritable bowel syndrome with both constipation and [...] Description 01/12/2025 1:30 PM EST Nurse Only [address] [address] 02/10/2025 1:30 PM EST Clinical Support [address] [address] Keely Person, SAMRA 02/18/2025 9:30 AM EST Office Visit [address] [address] Name, MD Krzysztof [address] [place] [address] documented as of this encounter Visit Diagnoses Diagnosis Irritable bowel syndrome with both constipation and diarrhea documented in this encounter Additional Health Concerns Assessment Noted Time PHQ-9 Depression Total Score: 15 025 3:53 PM EDT documented as of this encounter Care Teams Self Propelled Mining Machine Operator Relationship Specialty Start Date End Date NameKrzysztof MD [address] [place] [address] PCP - General Family Medicine 02/12/18 documented as of this encounter
--- OUTSIDE RECORDS SUMMARY | 2024-12-25 17:50 | XMS_ITS | Encounter Summary ---
Author Organization [facility] Address [address] [place] [address] Care Team Providers Care Natural Resources Instructor Name Role Phone Krzysztof Martell MD Primary Care Provider Unavailabl e Krzysztof Martell MD Primary Care Provider Unavailabl e Reason for Visit * Reason Onset Date Comments Provider Call Back 11/28/2013 Encounter Details Date Type Department Care Team Description 11/28/2013 Telephone Adult Medicine [address] [address] Krzysztof Martell MD Provider Call Back Social [...] 11/28/2013 1:21 PM EDT TCt pt at [phone] (home), left message for pt to call [...] on filedocumented in this encounter Care Teams Natural Resources Instructor Relationship Specialty Start Date End Date Jasbir, MD Krzysztof PCP - General Internal Medicine 12/22/10 04/05/15 Krzysztof Martell MD PCP - General Internal Medicine 04/06/15 documented as of this encounter
--- OUTSIDE RECORDS SUMMARY | 2024-12-25 17:50 | XMS_ITS | Encounter Summary ---
Author Organization [employer] Address [address] [facility] [address] 7t [place] [address] Care Team Providers Care Bass String Winder Name Role Phone Name, Krzysztof PERSON Primary Care Provider [phone] Encounter Details Date Type Department Care Team ([facility] st Contact Info) Description 09/20/2023 Orders Only [facility] MEDICINE 230 [place] [address] Angelica Kyle RN Vitamin B 12 deficiency [...] Description 01/12/2025 1:30 PM EST Nurse Only [address] [address] 02/10/2025 1:30 PM EST Clinical Support [address] [address] Keely Person RN 02/18/2025 9:30 AM EST Office Visit [address] [address] Name, MD Krzysztof [address] [place] [address] documented as of this encounter Procedures Procedure [...] PM EDT Narrative 09/28/2023 3:06 PM EDT [address] [address] XRay Report Signed Patient: Tenisha Jones V MR#: [id number] 14 : 1960 Acct:[id number] Age/Sex: 62 / F ADM Date: 09/28/23 Loc: HO.ED Attending Dr: Ordering Physician: Tamica Bullard Date of Service: 09/28/23 Procedure(s): XR tibia fibula LT 2V Accession Number(s): [id number] cc: Tamica Bullard; Krzysztof Martell MD EXAMINATION: [...] in OV> 09/28/23 1502 DD/ 1449 TD/TT: Dock Attendant: TA Procedure Note Donotuseinterpreter, Image - 09/28/2023 [place] [address] XRay Report Signed Patient: Tenisha Jones VMR#: [id number] 14 : 1960Acct:[id number] Age/Sex: 62 / FADM Date: 09/28/23 Loc: HO.ED Attending Dr: Ordering Physician: Tamica Bullard Date of Service: 09/28/23 Procedure(s): XR tibia fibula LT 2V Accession Number(s): [id number] cc: Tamica Bullard; NameKrzysztof MD EXAMINATION: XR [...] DO inOV> 09/28/23 1502 DD/ 1449 TD/TT: Dock Attendant: TA us [facility] External Provider IMG XR PROCEDURES Final Result * XR Knee 4+ Views Right (09/28/2023 1:34 PM EDT) Anatomical Region Laterality Modality Lower Extremities, Knee Right Radiogra phic Imaging 09/28/2023 1:34 PM EDT Narrative 09/28/2023 3:13 PM EDT [address] [address] XRay Report Signed Patient: Tenisha Jones V MR#: [id number] 14 : 1960 Acct:[id number] Age/Sex: 62 / F ADM Date: 09/28/23 Loc: HO.ED Attending Dr: Ordering Physician: Nella Mercer Date of Service: 09/28/23 Procedure(s): XR knee RT 4V Accession Number(s): [id number] cc: Krzysztof Martell MD; Nella Mercer EXAMINATION: [...] in OV> 09/28/23 1509 DD/ 1334 TD/TT: Dock Attendant: TA Procedure Note Donotuseinterpreter, Image - 09/28/2023 [facility] [address] [place] [address] XRay Report Signed Patient: Tenisha Jones VMR#: [id number] 14 : 1960Acct:[id number] Age/Sex: 62 / FADM Date: 09/28/23 Loc: HO.ED Attending Dr: Ordering Physician: Nella Mercer Date of Service: 09/28/23 Procedure(s): XR knee RT 4V Accession Number(s): [id number] cc: Name,Krzysztof PERSON; Nella Mercer EXAMINATION: XR [...] DO inOV> 09/28/23 1509 DD/ 1334 TD/TT: Dock Attendant: TA [facility] External Provider IMG XR PROCEDURES Final Result documented in this encounter Visit Diagnoses Diagnosis Vitamin B 12 deficiency Other B-complex deficiencies documented in this encounter Additional Health Concerns Assessment Noted Time PHQ-9 Depression Total Score: 0 05/29/19 24 9:06 AM EDT documented as of this encounter Care Teams Bass String Winder Relationship Specialty Start Date End Date Name, MD Krzysztof [address] [place] [address] PCP - General Family Medicine 02/12/18 documented as of this encounter
--- OUTSIDE RECORDS SUMMARY | 2024-12-25 17:50 | XMS_ITS | Encounter Summary ---
Author Organization [employer] Address 75 [facility] 7t [place] [address] Care Team Providers Care Medical Secretary Teacher Name Role Phone Name, Krzysztof PERSON Primary Care Provider [phone] Reason for Visit * Reason Comments Med Refill Encounter Details Date Type Department Care Team ([facility] st Contact Info) Description 11/28/2024 Refill [facility] MEDICINE [address] [place], [place] [phone] Name, MD Krzysztof [address] [place] [address] Social History Tobacco Use Types Packs/Day Years [...] Description 01/12/2025 1:30 PM EST Nurse Only [address] [address] 02/10/2025 1:30 PM EST Clinical Support [address] [address] Keely Person RN 02/18/2025 9:30 AM EST Office Visit [address] [address] Name, MD Krzysztof [address] [place] [address] documented as of this encounter Visit Diagnoses Not on filedocumented in this encounter Additional Health Concerns Assessment Noted Time PHQ-9 Depression Total Score: 15 025 3:53 PM EDT documented as of this encounter Care Teams Medical Secretary Teacher Relationship Specialty Start Date End Date NameKrzysztof MD [address] [place] [address] PCP - General Family Medicine 02/12/18 documented as of this encounter
--- OUTSIDE RECORDS SUMMARY | 2024-12-25 17:50 | XMS_ITS | Encounter Summary ---
Author Organization [facility] Address [address] [place] [address] Care Team Providers Care Grants Director Name Role Phone Arvind Berry MD Primary Care Provider [phone] Krzysztof Martell MD Primary Care Provider Unavailabl e Name, Krzyzstof PERSON Primary Care Provider Unavailabl e Encounter Details Date Type Department Care Team Description 05/02/2010 Night Triage Doc Medical Records [address] [place] [address] Abstract, Provider Social History Tobacco Use Types [...] on filedocumented in this encounter Care Teams Grants Director Relationship Specialty Start Date End Date Arvind Berry MD [address] [place] [address] PCP - General 08/14/00 12/21/10 Krzysztof Martell MD [address] [place] [address] PCP - General Internal Medicine 12/22/10 04/05/15 Krzysztof Martell MD [address] [place] [address] PCP - General Internal Medicine 04/06/15 documented as of this encounter
--- OUTSIDE RECORDS SUMMARY | 2024-12-25 17:50 | XMS_ITS | Encounter Summary ---
Author Organization [facility] Address [address] [place] [address] Care Team Providers Care Braille Typist Name Role Phone Name, Krzysztof PERSON Primary Care Provider Unavailabl e Name, Krzysztof PERSON Primary Care Provider Unavailabl e Encounter Details Date Type Department Care Team Description 01/01/2013 Night Triage Doc Medical Records [address] [place] [address] Abstract, Provider Social History Tobacco Use Types [...] on filedocumented in this encounter Care Teams Braille Typist Relationship Specialty Start Date End Date Krzysztof Martell MD PCP - General Internal Medicine 12/22/10 04/05/15 Krzysztof Martell MD PCP - General Internal Medicine 04/06/15 documented as of this encounter
--- OUTSIDE RECORDS SUMMARY | 2024-12-25 17:50 | XMS_ITS | Encounter Summary ---
Author Organization [facility] Address [address] [place] [address] Care Team Providers Care Calculation Reviewer Name Role Phone Name, Krzysztof PERSON Primary Care Provider Unavailabl e Name, Krzysztof PERSON Primary Care Provider Unavailabl e Encounter Details Date Type Department Care Team Description 05/13/2013 Controlled Substance Contract with Plan Medical Records [address] [place] [address] Abstract, Provider Social History Tobacco Use Types [...] on filedocumented in this encounter Care Teams Calculation Reviewer Relationship Specialty Start Date End Date Krzysztof Martell MD PCP - General Internal Medicine 12/22/10 04/05/15 Krzysztof Martell MD PCP - General Internal Medicine 04/06/15 documented as of this encounter
--- OUTSIDE RECORDS SUMMARY | 2024-12-25 17:50 | XMS_ITS | Encounter Summary ---
Author Organization [employer] Address [address] [facility] [address] 7t [place] [address] Care Team Providers Care Insurance Salesperson Name Role Phone Name, Krzysztof PERSON Primary Care Provider [phone] Reason for Visit * Reason Onset Date Comments Durable Medical Equipment 02/21/2023 Encounter Details Date Type Department Care Team ([facility] st Contact Info) Description 02/21/2023 Telephone [facility] MEDICINE [address] [place], [place] [phone] Name, MD Krzysztof [address] [place] [address] Durable Medical Equipment Social History Tobacco Use [...] requesting script to be send to a [facility] that does deliver DME. documented in this encounter Plan of Treatment Upcoming Encounters Date Type Department Care Team (Late st Contact Info) Description 01/12/2025 1:30 PM EST Nurse Only [facility] MEDICINE [address] [place] [address] 02/10/2025 1:30 PM EST Clinical Support [address] [address] Keely Person RN 02/18/2025 9:30 AM EST Office Visit [address] [address] Name, MD Krzysztof [address] [place] [address] documented as of this encounter Visit Diagnoses Not on filedocumented in this encounter Care Teams Insurance Salesperson Relationship Specialty Start Date End Date Name, MD Krzysztof [address] [place] [address] PCP - General Family Medicine 02/12/18 documented as of this encounter
--- OUTSIDE RECORDS SUMMARY | 2024-12-25 17:50 | XMS_ITS | Encounter Summary ---
Author Organization [employer] Address 75 [facility] 7t [place] [address] Care Team Providers Care Truck Greaser Name Role Phone Name, Krzysztof PERSON Primary Care Provider [phone] Reason for Visit * Reason Onset Date Comments Med Refill 08/21/2024 Encounter Details Date Type Department Care Team ([facility] st Contact Info) Description 08/21/2024 Refill [facility] MED & PEDS [address] [place], [place] [phone] Odilia Niño, LYNNETTE [address] [place] [address] Vitamin B 12 deficiency Social History Tobacco [...] Description 01/12/2025 1:30 PM EST Nurse Only [address] [address] 02/10/2025 1:30 PM EST Clinical Support [address] [address] Keely Person, SAMRA 02/18/2025 9:30 AM EST Office Visit [address] [address] Name, MD Krzysztof [address] [place] [address] documented as of this encounter Visit Diagnoses Diagnosis Vitamin B 12 deficiency Other B-complex deficiencies documented in this encounter Additional Health Concerns Assessment Noted Time PHQ-9 Depression Total Score: 0 05/29/19 24 9:06 AM EDT documented as of this encounter Care Teams Truck Greaser Relationship Specialty Start Date End Date Name, MD Krzysztof [address] [place] [address] PCP - General Family Medicine 02/12/18 documented as of this encounter
--- OUTSIDE RECORDS SUMMARY | 2024-12-25 17:50 | XMS_ITS | Encounter Summary ---
Author Organization [facility] Address [address] [place] [address] Care Team Providers Care Inside Sales Director Name Role Phone Name, Krzysztof PERSON Primary Care Provider Unavailabl e Name, Krzysztof PERSON Primary Care Provider Unavailabl e Reason for Visit * Reason Comments E-prescribe Rx Request Encounter Details Date Type Department Care Team Description 05/05/2013 Refill Adult Medicine [address] [address] Lashonda Corbett NP E-prescribe Rx Request Social [...] an upcoming appointment? No-[facility] to refill request. Appt due (THE MEDICATION REQUESTED IS ON THE MED LIST ABOVE) All of the medications requested were on the CURRENT MEDS list Did you check the Pharmacy information above?: YES Patient wants: 30 -day supply Is this a mail order prescription request ? NO Patients current insurance carrier is: Payor: SocialThreader Plan: [facility] TYPE II $10/$18 [id number] Product Type: HMO [id number] documented in this encounter Plan of Treatment Not on file documented as of this encounter Visit Diagnoses Not on filedocumented in this encounter Care Teams Inside Sales Director Relationship Specialty Start Date End Date Name, MD Krzysztof PCP - General Internal Medicine 12/22/10 04/05/15 Name, MD Krzysztof PCP - General Internal Medicine 04/06/15 documented as of this encounter
--- OUTSIDE RECORDS SUMMARY | 2024-12-25 17:50 | XMS_ITS | Encounter Summary ---
Author Organization [facility] Address [address] [place] [address] Care Team Providers Care Hat Braider Name Role Phone NameKrzysztof MD Primary Care Provider Unavailabl e NameKrzysztof MD Primary Care Provider Unavailabl e Reason for Visit * Reason Onset Date Comments Special Procedure 07/31/2013 colonoscopy Encounter Details Date Type Department Care Team Description 07/31/2013 Telephone Gastroenterology - [address] [address] Name, MD Krzysztof Special Procedure (colonoscopy) Social [...] on filedocumented in this encounter Care Teams Hat Braider Relationship Specialty Start Date End Date Krzysztof Martell MD PCP - General Internal Medicine 12/22/10 04/05/15 Name, MD Krzysztof PCP - General Internal Medicine 04/06/15 documented as of this encounter
--- OUTSIDE RECORDS SUMMARY | 2024-12-25 17:50 | XMS_ITS | Encounter Summary ---
Author Organization [facility] Address [address] [place] [address] Care Team Providers Care Chicken Cleaner Name Role Phone Name, Krzysztof PERSON Primary Care Provider Unavailabl e Name, Krzysztof PERSON Primary Care Provider Unavailabl e Reason for Visit * Reason Onset Date Comments refill request 01/13/2014 Encounter Details Date Type Department Care Team Description 01/13/2014 Refill Adult Medicine [address] [address] Name, MD Krzysztof refill request Social History [...] like script to be: PLACED IN PATIENT PREPARED FOODS PRODUCTION TEAM MEMBER WHEN WAS THE PATIENT'S LAST APPOINTMENT IN [...] / Plan[place] / Product Type: MEDICAID [id number] documented in this encounter Plan of Treatment Not on file documented as of this encounter Visit Diagnoses Diagnosis Chronic pain Other chronic pain Neuropathic pain Neuralgia, neuritis, and radiculitis, unspecified documented in this encounter Care Teams Chicken Cleaner Relationship Specialty Start Date End Date Krzysztof Martell MD PCP - General Internal Medicine 12/22/10 04/05/15 Krzysztof Martell MD PCP - General Internal Medicine 04/06/15 documented as of this encounter
--- OUTSIDE RECORDS SUMMARY | 2024-12-25 17:50 | XMS_ITS | Encounter Summary ---
Author Organization [facility] Address [address] [place] [address] Care Team Providers Care Vest Backer Name Role Phone Name, Krzysztof PERSON Primary Care Provider Unavailabl e Encounter Details Date Type Department Care Team Description 04/11/2016 Power Plant Engineer Report Medical Records [address] [place] [address] Kinga Clark MD Social History Tobacco Use [...] on filedocumented in this encounter Care Teams Vest Backer Relationship Specialty Start Date End Date Name, MD Krzysztof PCP - General Internal Medicine 04/06/15 documented as of this encounter
--- OUTSIDE RECORDS SUMMARY | 2024-12-25 17:50 | XMS_ITS | Clinical Summary ---
Author Organization [facility] [address] [place] [address] [place] [phone] Phone Care Team Providers Care Political Reporter Name Role Phone Name, Krzysztof PERSON Primary Care Provider [phone] Allergies Active Allergy Reactions Criticality Noted Date [...] Mother a t the age of 66.goiter, BALLAST INSPECTOR cancer ? Breast cancer Neg Hx Colon [...] 02/09/2025 11:00 AM EST Appointment Radiology Department [address] [address] Health Maintenance Due Date Last Done Comments [...] is recommended in 1 year. MAMMO LOCATION: [facility], [address] [place] [address], [phone], . -------- FINAL REPORT -------- Dictated By: Ashli Tirado Dictated Date: 02/11/2024 19:32 ET Assigned Physician: Ashli Tirado Reviewed and Electronically Signed By: Ashli Tirado Signed Date: 02/11/2024 19:33 ET Workstation ID: [id number] Transcribed By: Self Edit Transcribed Date: 02/11/2024 [...] is recommended in 1 year. MAMMO LOCATION: [facility], [address] [place] [address], [id number], . -------- FINAL REPORT -------- Dictated By: Ashli iTrado Dictated Date: 02/11/2024 19:32 ET Assigned Physician: Ashli Tirado Reviewed and Electronically Signed By: Ashli Tirado Signed Date: 02/11/2024 19:33 ET Workstation ID: [id number] Transcribed By: Self Edit Transcribed Date: 02/11/2024 19:32 ET Krzysztof Name IMPrecious BI PROCEDURES Final Result from Last 3 Months or Most Recently Relevant to Health Maintenance Insurance MEDICAID - [place] MEDICARE Care Teams Political Reporter Relationship Specialty Start Date End Date Name, MD Krzysztof [address] [place] [address] PCP - General Internal Medicine 12/22/10
--- OUTSIDE RECORDS SUMMARY | 2024-12-25 17:50 | XMS_ITS | Encounter Summary ---
Author Organization [facility] Address [address] [place] [address] Care Team Providers Care Registered Phlebotomist Part Time Name Role Phone Krzysztof Martell MD Primary Care Provider Unavailabl e Krzysztof Martell MD Primary Care Provider Unavailabl e Reason for Referral * Specialist (Routine) - Authorized/Booked Specialty Diagnoses / Procedures Referred By Patricia alvarado Referred To Contact Podiatry Procedures REFERRAL TO PODIATRY Krzysztof Martell MD [address] [place] [address] [address] [place] [address] DR. HARGROVE [address] [place] [address] Referral ID Status Reason Start Date Expiration Date V isits Requested Visits Authorized SEE NOTE Authorized/B ooked 11/24/2014 03/03/2015 1 1 Reason for Visit * Reason Onset Date Comments Retail Salesman Feedback 11/24/2014 Podiatry Encounter Details Date Type Department Care Team Description 11/24/2014 Telephone Adult Medicine [address] [address] Krzysztof Martell MD Retail Salesman Feedback (Podiatry) Social History Tobacco Use Types Packs/Day Years [...] Miscellaneous Notes * Telephone Encounter - Shara Will - 11/24/2014 11:19 AM EDT Please review this patients new referral request. The referral has been pended. Please complete thefollowing: If approved> sign order If denied>please give instructions and route to your practice nursing pool. Practice nurse should inform referrals and the patient if denied. * Telephone Encounter - Kaia Pedroza - 11/24/2014 11:08 AM EDT Did you verify this is patients current insurance? YES Payor: [employer] FFS / Plan: FFS HMO $0 [place] [id number] / Product Type: MEDICAID RISK Effective 11/12/08: BCBS will not retro referral requests over 90 days. If request is for this please instruct patient to call the 800# on their insurance card to appeal. Do not submit a request. Referrals cannot be processed if the insurance is not accurate. If the insurance listed above in red is NO BILLING INFORMATION FOUND FOR THIS ENCOUTNER The patients correct insurance must be obtained and registered in [facility] or their referral can not be processed. Who is calling to request this referral? Patient If the caller is not the patient, what is their name? N/A FIRST and LAST NAME of SPECIALIST PATIENT is seeing: Dr Ruth What specialty is this? Podiatry DIAGNOSIS Patient is being seen for (Not a body part or a procedure): joel Have you seen this SPECIALIST for this PROBLEM/DX before?YES If YES, when: 2011 Have you checked REVIEW or the APPT DESK to see if this referral has already been done or has visits left? YES Who referred the patient to this specialty? Is this visit:Follow Up Address of Specialist: [address] [place] [address] [place] [address] Phone # of Specialist: [phone] Fax #: (if applicable): Does patient have an appointment scheduled?: NO Date of appointment- (including a retro-request): pending this referral Is this appointment related to: Not MVA, WC or Surgery related documented in this encounter Plan of Treatment Not on file documented as of this encounter Visit Diagnoses Not on filedocumented in this encounter Care Teams Registered Phlebotomist Part Time Relationship Specialty Start Date End Date Jasbir, MD Krzysztof PCP - General Internal Medicine 12/22/10 04/05/15 Krzysztof Martell MD PCP - General Internal Medicine 04/06/15 documented as of this encounter
--- OUTSIDE RECORDS SUMMARY | 2024-12-25 17:50 | XMS_ITS | Encounter Summary ---
Author Organization [facility] Address [address] [place] [address] Care Team Providers Care Svp Programmatic Tv Name Role Phone Arvind Berry MD Primary Care Provider [phone] Name, Krzysztof PERSON Primary Care Provider Unavailabl e Name, Krzysztof PERSON Primary Care Provider Unavailabl e Encounter Details Date Type Department Care Team Description 08/17/2010 Hospital Medical Records [address] [place] [address] Darío Tello DO Social History Tobacco Use [...] on filedocumented in this encounter Care Teams Svp Programmatic Tv Relationship Specialty Start Date End Date Arvind Berry MD [address] [place] [address] PCP - General 08/14/00 12/21/10 Krzysztof Martell MD [address] [place] [address] PCP - General Internal Medicine 12/22/10 04/05/15 Krzysztof Martell MD [address] [place] [address] PCP - General Internal Medicine 04/06/15 documented as of this encounter
--- OUTSIDE RECORDS SUMMARY | 2024-12-25 17:50 | XMS_ITS | Encounter Summary ---
Author Organization [employer] Address 75 [facility] 7t [place] [address] Care Team Providers Care Magnetic Tape Typewriter Operator Name Role Phone Name, Krzysztof PERSON Primary Care Provider [phone] Reason for Visit * Reason Onset Date Comments Med Refill 05/21/2024 Encounter Details Date Type Department Care Team ([facility] st Contact Info) Description 05/21/2024 Refill [facility] MEDICINE 230 [place], [place] [phone] Name, MD Krzysztof [address] [place] [address] Social History Tobacco Use Types Packs/Day Years [...] Description 01/12/2025 1:30 PM EST Nurse Only [address] [address] 02/10/2025 1:30 PM EST Clinical Support [address] [address] Keely Person RN 02/18/2025 9:30 AM EST Office Visit [address] [address] Name, MD Krzysztof [address] [place] [address] documented as of this encounter Visit Diagnoses Not on filedocumented in this encounter Additional Health Concerns Assessment Noted Time PHQ-9 Depression Total Score: 0 05/29/19 24 9:06 AM EDT documented as of this encounter Care Teams Magnetic Tape Typewriter Operator Relationship Specialty Start Date End Date Name, MD Krzysztof [address] [place] [address] PCP - General Family Medicine 02/12/18 documented as of this encounter
--- OUTSIDE RECORDS SUMMARY | 2024-12-25 17:50 | XMS_ITS | Encounter Summary ---
Author Organization [employer] Address 75 [facility] 7t [place] [address] Care Team Providers Care Shaping Machine Operator Name Role Phone Name, Krzysztof PERSON Primary Care Provider [phone] Reason for Visit * Reason Onset Date Comments Med Refill 09/04/2024 Encounter Details Date Type Department Care Team ([facility] st Contact Info) Description 09/04/[address] [facility] MEDICINE [address] [place], [place] [phone] Name, MD Krzysztof 230 [place] [address] Social History Tobacco Use Types Packs/Day Years [...] 01/12/2025 1:30 PM EST Nurse Only [address] [place] [address] 02/10/2025 1:30 PM EST Clinical Support [address] [address] Keely Person, SAMRA 02/18/2025 9:30 AM EST Office Visit [address] [address] Name, MD Krzysztof [address] [place] [address] documented as of this encounter Visit Diagnoses Not on filedocumented in this encounter Additional Health Concerns Assessment Noted Time PHQ-9 Depression Total Score: 0 05/29/19 24 9:06 AM EDT documented as of this encounter Care Teams Shaping Machine Operator Relationship Specialty Start Date End Date Name, MD Krzysztof [address] [place] [address] PCP - General Family Medicine 02/12/18 documented as of this encounter
--- OUTSIDE RECORDS SUMMARY | 2024-12-25 17:50 | XMS_ITS | Encounter Summary ---
Author Organization [employer] Address [address] [place] [address] 7 [place] [address] Care Team Providers Care School Patrol Name Role Phone Name, Krzysztof PERSON Primary Care Provider [phone] Encounter Details Date Type Department Care Team ([facility] st Contact Info) Description 01/18/2022 Abstract [facility] MEDICINE 230 [place] [address] Name, MD Krzysztof 230 [place] [address] Social History Tobacco Use Types Packs/Day Years [...] Description 01/12/2025 1:30 PM EST Nurse Only [address] [address] 02/10/2025 1:30 PM EST Clinical Support [address] [address] Keely Person, RN 02/18/2025 9:30 AM EST Office Visit [address] [address] Name, MD Krzysztof [address] [place] [address] documented as of this encounter Visit Diagnoses Not on filedocumented in this encounter Care Teams School Patrol Relationship Specialty Start Date End Date Name, MD Krzysztof [address] [place] [address] PCP - General Family Medicine 02/12/18 documented as of this encounter
--- OUTSIDE RECORDS SUMMARY | 2024-12-25 17:50 | XMS_ITS | Encounter Summary ---
Author Organization [facility] Address [address] [place] [address] Care Team Providers Care Supervisor Bridges And Buildings Name Role Phone Name, Krzysztof PERSON Primary Care Provider Unavailabl e Name, Krzysztof PERSON Primary Care Provider Unavailabl e Encounter Details Date Type Department Care Team Description 11/27/2014 Ticket Worker Report Medical Records [address] [place] [address] Cheri Dempsey MD Social History Tobacco Use Types Packs/Day [...] filedocumented in this encounter Care Teams Supervisor Bridges And Buildings Relationship Specialty Start Date End Date Krzysztof Martell MD PCP - General Internal Medicine 12/22/10 04/05/15 Krzysztof Martell MD PCP - General Internal Medicine 04/06/15 documented as of this encounter
--- OUTSIDE RECORDS SUMMARY | 2024-12-25 17:50 | XMS_ITS | Encounter Summary ---
Author Organization [employer] Address [address] [facility] [address] 7t [place] [address] Care Team Providers Care Pole Classifier Name Role Phone Name, Krzysztof PERSON Primary Care Provider [phone] Reason for Visit * Reason Onset Date Comments Med Refill 08/21/2024 Encounter Details Date Type Department Care Team ([facility] st Contact Info) Description 08/21/2024 Refill [facility] [address] [place] [address] Trina August, ANNE [address] [place] [address] Social History Tobacco Use Types Packs/Day Years [...] Description 01/12/2025 1:30 PM EST Nurse Only [address] [address] 02/10/2025 1:30 PM EST Clinical Support [address] [address] Keely Person, SAMRA 02/18/2025 9:30 AM EST Office Visit [address] [address] Name, MD Krzysztof [address] [place] [address] documented as of this encounter Visit Diagnoses Not on filedocumented in this encounter Additional Health Concerns Assessment Noted Time PHQ-9 Depression Total Score: 0 05/29/19 24 9:06 AM EDT documented as of this encounter Care Teams Pole Classifier Relationship Specialty Start Date End Date Name, MD Krzysztof [address] [place] [address] PCP - General Family Medicine 02/12/18 documented as of this encounter
--- OUTSIDE RECORDS SUMMARY | 2024-12-25 17:50 | XMS_ITS | Encounter Summary ---
Author Organization [employer] Address 75 [facility] 7t [place] [address] Care Team Providers Care Head Up Operator Helper Name Role Phone Name, Krzysztof PERSON Primary Care Provider [phone] Reason for Visit * Reason Onset Date Comments Med Refill 05/21/2024 Encounter Details Date Type Department Care Team ([facility] st Contact Info) Description 05/21/2024 Refill [facility] MEDICINE [address] [place] [address] Odilia Niño FNP [address] [place] [address] Vitamin B 12 deficiency Social History Tobacco [...] Description 01/12/2025 1:30 PM EST Nurse Only [address] [address] 02/10/2025 1:30 PM EST Clinical Support [address] [address] Keely Person, SAMRA 02/18/2025 9:30 AM EST Office Visit [address] [address] Name, MD Krzysztof [address] [place] [address] documented as of this encounter Visit Diagnoses Diagnosis Vitamin B 12 deficiency Other B-complex deficiencies documented in this encounter Additional Health Concerns Assessment Noted Time PHQ-9 Depression Total Score: 0 05/29/19 24 9:06 AM EDT documented as of this encounter Care Teams Head Up Operator Helper Relationship Specialty Start Date End Date Name, MD Krzysztof [address] [place] [address] PCP - General Family Medicine 02/12/18 documented as of this encounter
--- OUTSIDE RECORDS SUMMARY | 2024-12-25 17:50 | XMS_ITS | Clinical Summary ---
Author Organization [employer] Address [address] [place] [address] 7t [place] [address] Care Team Providers Care Hand Trimmer Name Role Phone Name, Krzysztof PERSON Primary Care Provider [phone] Allergies Active Allergy Reactions Criticality Noted Date [...] 30 tablet 025 2024 Discontinued HYDROcodone-acet aminophen ([place]) 5-325 MG tabletIndication s:Lumbar back pain with radiculopathy affecting left lower extremity Take 1 tablet by mouth every 6 (six) hours if needed for severe pain for up to 28 days. 112 tablet 025 2024 nystatin (Mycostatin) 514012 UNIT/ML suspensionIndica tions:Oral thrush Take 5 mL [...] Type Department Care Team Description 12/13/2024 Refill [facility] [address] [facility] [place] [address] Name, MD Krzysztof 12/12/2024 9:30 AM EDT Nurse Only [facility] [address] [facility] [place] [address] Yvonne Danielson, SAMRA Vitamin B 12 deficiency 12/12/2024 Refill [facility] [address] [facility] [place] [address] Name, MD Krzysztof 12/12/2024 Travel 12/11/2024 Refill [facility] [address] [facility] [place] [address] Trina August NP Irritable bowel syndrome with both constipation and diarrhea 12/11/2024 Refill [facility] [address] [facility] [place] [address] Name, MD Krzysztof 12/11/2024 Travel 11/28/2024 9:20 AM EDT Office Visit [facility] [address] Morris Brambila MD Oral thrush (Primary Dx) 11/28/2024 Refill [facility] [address] [place] [address] Krzysztof Martell MD 11/28/2024 Travel 11/27/[address] [address] Krzysztof Martell MD 11/27/2024 Travel 11/25/[address] [address] Krzysztof Martell MD Nurse Triage 11/25/2024 Orders Only GENERIC EXTERNAL DATA DEPARTMENT Provider, Generic External Data 11/12/2024 9:30 AM EDT Clinical Support [address] [address] Chitra Madrid RN Encounter for immunization; Vitamin B 12 deficiency 11/12/2024 Travel 11/10/2024 10:30 AM EDT Telemedicine [address] [address] Keely Person, SAMRA Long-term current use of opiate analgesic 11/10/[address] [address] Keely Person, RN Lumbar back pain with radiculopathy affecting left lower extremity (Primary Dx) 11/10/2024 Travel 11/09/2024 Travel 11/08/[address] [address] Krzysztof Martell MD 10/25/2024 Refill [facility] [address] [place] [address] Krzysztof Martell MD Vitamin D deficiency 10/17/2024 2:00 PM EDT Office Visit [address] [address] Krzysztof Martell MD Chronic right hip pain (Primary Dx); NSAID long-term use; Hypothyroidism, unspecified type; Encounter for immunization 10/17/2024 Travel 10/16/2024 Telephone [facility] [address] [place] [address] Name, MD Krzysztof Chart Prep 09/25/2024 3:30 PM EDT Clinical Support [facility] [address] [place] [address] Chitra Madrid, RN Vitamin B 12 deficiency [...] Description 01/12/2025 1:30 PM EST Nurse Only [address] [address] 02/10/2025 1:30 PM EST Clinical Support [address] [address] Keely Person, SAMRA 02/18/2025 9:30 AM EST Office Visit [address] [address] Name, MD Krzysztof [address] [place] [address] Health Maintenance Due Date Last Done Comments [...] Free T4 3.45 0.32 - 4.0 uIU/mL [facility] Blood Venous blood specimen / Unknown 11/25/2024 8:26 AM EDT 11/25/2024 11:35 AM EDT us Krzysztof Name LAB BLOOD ORDERABLES Final Resul t [facility] [address] [place] [phone] * (ABNORMAL) CBC auto differential (11/25/2024 8:26 AM EDT) White Blood Count 10.9(H) 4.8 - 10.8 X10*3/uL [facility] Red Blood Count 5.18 4.20 - 5.50 X10*6/uL [facility] Hemoglobin 14.9 12.0 - 16.0 g/dl [facility] Hematocrit 48.3(H) 37.0 - 47.0 % [facility] Mean Corpuscular Volume 93.2 80.0 - 98.0 fL [facility] Mean Corpuscular Hemoglobin 28.8 27.0 - 33.0 pg [facility] Mean Corpuscular HGB Conc 30.8(L) 31.0 - 35.0 g/dl [facility] Red Cell Distribution Width 14.6 11.0 - 16.0 % [facility] Platelet Count 318 160 - 400 X10*3/uL [facility] Mean Platelet Volume 10.3 9.4 - 12.3 fL [facility] Neutrophils Percent Auto 67.9 45 - 73 % [facility] Imm Gran Pct Auto 0.3 0.0 - 0.4 % [facility] Lymphocytes Percent Auto 22.3 20 - 40 % [facility] Monocytes Percent Auto 8.0 2 - 11 % [facility] Eosinophils Percent Auto 1.3 0 - 4 % [facility] Basophils Percent Auto 0.2 0 - 2 % [facility] NRBC Pct Auto 0.0 0.0 - 0.2 /100WBC [facility] Neutrophils Absolute Auto 7.4 2.0 - 8.3 x10*3/uL [facility] Imm Gran Abs Auto 0.03 0.00 - 0.03 X10*3/uL [facility] Lymphocytes Absolute Auto 2.4 1.2 - 4.9 X10*3/uL [facility] Monocytes Absolute Auto 0.9 0.1 - 1.2 X10*3/uL [facility] Eosinophils Absolute Auto 0.1 0.0 - 0.4 X10*3/uL [facility] Basophils Absolute Auto 0.0 0.0 - 0.2 X10*3/uL [facility] NRBC Abs Auto 0.000 0.0 - 0.012 X10*3/uL [facility] Blood Venous blood specimen / Unknown 11/25/2024 8:26 AM EDT 11/25/2024 11:31 AM EDT us Krzysztof Name LAB BLOOD ORDERABLES Final Resul t [facility] [address] [place] [phone] * TSH (11/25/2024 8:26 AM EDT) Thyroid Stimulating Hormone 0.76 0.32 - 4.0 uIU/mL [facility] Comment:TSH 3rd Generation ( [facility]) 11/25/2024 8:26 AM EDT 11/25/2024 11:35 AM EDT us Generic External Data Provider LAB BLOOD ORDERAB LES Final Result Performing Organization Address [facility]/ZIP Co de Phone Number [facility] [address] [place] [phone] * T4, Free (11/25/2024 8:26 AM EDT) Free T4 (Free Thyroxine) 1.23 0.71 - 1.85 ng/dL [facility] 11/25/2024 8:26 AM EDT 11/25/2024 11:35 AM EDT Generic External Data Provider LAB BLOOD ORDERAB LES Final Result Performing Organization Address [facility] de Phone Number [facility] [address] [place] [phone] * (ABNORMAL) Comprehensive Metabolic Panel (11/25/2024 8:26 AM EDT) Pathologist [facility] Sodium 140 135 - 145 mmol/L [facility] Potassium 4.4 3.3 - 5.1 mmol/L [facility] Chloride 106 96 - 108 mmol/L [facility] Carbon Dioxide 27 22 - 29 mmol/L [facility] Anion Gap 11(L) 12 - 20 [facility] Urea Nitrogen (BUN) 17(H) 9 - 16 mg/dL [facility] Creatinine, Serum 0.77 0.5 - 1.4 mg/dL [facility] Estimated Glomerular Filt Rate >60 [facility] Comment:Chronic Kidney Disea se: Estimated GFR < 60 mL/min/[id number] Kidney Disease: Estimated GFR < 15 mL/min/1.73m2 Glucose 85 60 - 115 mg/dL [facility] Calcium 9.4 8.4 - 10.2 mg/dL [facility] Bilirubin, Total 0.5 0.0 - 1.0 mg/dL [facility] Aspartate Amino Transferase 21 5 - 31 U/L [facility] Alanine Aminotransferase 22 0 - 31 U/L [facility] Total Protein 6.9 6.5 - 8.0 g/dL [facility] Albumin Level 4.0 3.5 - 5.0 g/dL [facility] Alkaline Phosphatase 94 39 - 117 U/L [facility] Blood Venous blood specimen / Unknown 11/25/2024 8:26 AM EDT 11/25/2024 11:35 AM EDT us Krzysztof Martell MD LAB BLOOD ORDERABLES Final Resul t [facility] [address] [place] [phone] * Referral to Orthopaedic Surgery (11/17/2024) us Krzysztof Martell MD OUTPATIENT REFERRAL ORDERABLES F inal Result * (ABNORMAL) Lipid Panel, Standard (06/29/2022 7:58 AM EDT) Cholesterol, Total 267(H) <200 mg/dL [facility] [place] [email or web address] HDL Cholesterol 52 > OR = 50 mg/dL [facility] [place] [email or web address] Triglycerides 151(H) <150 mg/dL [facility] [place] [email or web address] LDL Cholesterol 185(H) mg/dL (calc) [facility] [place] [email or web address] Comment: Reference range: <100 Desirable range <100 mg/dL for primary prevention; <70 mg/dL for patients with CHD or diabetic patients with > or = 2 CHD risk factors. LDL-C is now calculated using the Leora calculation, which is a validated novel method providing better accuracy than the Friedewald equation in the estimation of LDL-C. Ankur ALMANZAR et al. JOSE ALEJANDRO. 2013;310(19): 0242-4345 (http://education.Navmii.Insightix/faq/LEC731) Chol/HDLC Ratio 5.1(H) <5.0 (calc) [facility] [place] [email or web address] Non-HDL Cholesterol 215(H) <130 mg/dL (calc) [facility] [place] [employer] [facility] Comment: For patients with diabetes plus 1 major ASCVD risk factor, treating to a non-HDL-C goal of <100 mg/dL (LDL-C of <70 mg/dL) is considered a therapeutic option. Blood Venous blood specimen / Unknown 06/29/2022 7:58 AM EDT 06/29/2022 7:58 AM EDT Narrative [facility] - 06/29/2022 10:32 PM EDT FASTING:YES FASTING: YES Krzysztof Name LAB BLOOD ORDERABLES Final Resul t [facility] [address], [place] [address] [facility] [place] [email or web address] [address] [place] [phone] * Pap Smear (05/09/2022 12:00 AM EDT) Historical Provider HEALTH MAINTENANCE Final Result * Mammography (01/03/2022 2:56 PM EST) Mammogram Birads-1 Anatomical Region Laterality Modality Other Narrative 01/03/2022 2:56 PM EST Recommended routine annual mammo ( [facility]) Result [facility] Historical Provider HEALTH MAINTENANCE Edited Result - Final * Colonoscopy (08/24/2016) Colonoscopy performed Historical Provider HEALTH MAINTENANCE Final Result from Last 3 Months or Most Recently Relevant to Health Maintenance Insurance MEDICARE [facility] STANDARD * Guarantor: Tenisha Jones V Account Type Relation to Patient Date of Phone Billing Address Personal/Family Self 1960 [address] [place] [address] * Guarantor: Tenisha Jones V Account Type Relation to Patient Date of Phone Billing Address Personal/Family Self 1960 [address] [place] [address] * Guarantor: Tenisha Jones V Account Type Relation to Patient Date of Phone Billing Address Personal/Family Self 1960 [address] [place] [address] Care Teams Hand Trimmer Relationship Specialty Start Date End Date Name, MD Krzysztof [address] [place] [address] PCP - General Family Medicine 02/12/18
--- OUTSIDE RECORDS SUMMARY | 2024-12-25 17:50 | XMS_ITS | Encounter Summary ---
Author Organization [facility] Address [address] [place] [address] Care Team Providers Care Pier Master Name Role Phone Name, Krzysztof PERSON Primary Care Provider Unavailabl e Encounter Details Date Type Department Care Team Description 09/18/2022 Pt. Non Urgent Medical Question Urogynecology [address] [phone] Nikole Arzola MD [address] [place] [address] [place] [address] Social History Tobacco Use Types Packs/Day Years [...] on filedocumented in this encounter Care Teams Pier Master Relationship Specialty Start Date End Date Name, MD Krzysztof PCP - General Internal Medicine 04/06/15 documented as of this encounter
--- OUTSIDE RECORDS SUMMARY | 2024-12-25 17:50 | XMS_ITS | Encounter Summary ---
Author Organization [employer] Address 75 [facility] 7t [place] [address] Care Team Providers Care Principal Accounts Clerk Name Role Phone Name, Krzysztof PERSON Primary Care Provider [phone] Reason for Visit * Reason Onset Date Comments Med Refill 06/11/2024 Encounter Details Date Type Department Care Team ([facility] st Contact Info) Description 06/11/2024 Refill [facility] [address] [place], [place] [phone] Name, MD Krzysztof 230 [place] [address] Lumbar back pain with radiculopathy affecting left [...] Description 01/12/2025 1:30 PM EST Nurse Only [address] [address] 02/10/2025 1:30 PM EST Clinical Support [address] [address] Keely Person RN 02/18/2025 9:30 AM EST Office Visit [address] [address] Name, MD Krzysztof [address] [place] [address] documented as of this encounter Visit Diagnoses Diagnosis Lumbar back pain with radiculopathy affecting left lower extremity documented in this encounter Additional Health Concerns Assessment Noted Time PHQ-9 Depression Total Score: 0 05/29/19 24 9:06 AM EDT documented as of this encounter Care Teams Principal Accounts Clerk Relationship Specialty Start Date End Date Name, MD Krzysztof [address] [place] [address] PCP - General Family Medicine 02/12/18 documented as of this encounter
--- OUTSIDE RECORDS SUMMARY | 2024-12-25 17:50 | XMS_ITS | Encounter Summary ---
Author Organization [employer] Address 75 [facility] 7 [place] [address] Care Team Providers Care Tie Man Name Role Phone NameKrzysztof MD Primary Care Provider [phone] Reason for Visit * Reason Onset Date Comments PA Clarification 12/19/2022 Prior Authorization 12/19/2022 Phenobarbita l Encounter Details Date Type Department Care Team ([facility] st Contact Info) Description 12/19/2022 Telephone [facility] [address] [place] [address] Name, MD Krzysztof [address] [place] [address] PA Clarification ; Prior Authorization (Phenobarbital) Social [...] 1:27 PM EST TW returned call to [facility], a clarification of dosage was needed and was corrected with information on in chart. [facility] determined that a PA was not needed for this medication and that the Pharmacy was to call the Pharmacy Help Desk at [phone]. Pharmacy was called and informed. * Telephone Encounter - Mauro Figueroa - 12/19/2022 11:53 AM EST Tc from Cam with [facility] requesting a call from a nurse or provider in regards to a PA form that was received. ( Did specify which medication) Cam states that in order to approve some verification and clarification most be revised. Please contact Cam at [phone] documented in this encounter Plan of Treatment Upcoming Encounters Date Type Department Care Team (Late st Contact Info) Description 01/12/2025 1:30 PM EST Nurse Only [facility] [address] [place] [address] 02/10/2025 1:30 PM EST Clinical Support [address] [address] Keely Person RN 02/18/2025 9:30 AM EST Office Visit [address] [address] Name, MD Krzysztof [address] [place] [address] documented as of this encounter Visit Diagnoses Not on filedocumented in this encounter Care Teams Tie Man Relationship Specialty Start Date End Date Name, MD Krzysztof [address] [place] [address] PCP - General Family Medicine 02/12/18 documented as of this encounter
[2024-12-31 06:04] LABS: Lactoferrin, Fecal, Quant. 93.48 mcg/mL (<7.25)
== END 2024-12-25 14:23 | disposition home or self-care (01) ==
LOC: HO.LNP 14:22
PROVIDERS: Visit Provider Internal Medicine Gastroenterology
DX: K51.50 Left sided colitis without complications (principal); R19.7 Diarrhea, unspecified
CPT/HCPCS: 83631; 87493; 87507

== ENCOUNTER 2024-12-31 12:50 | Emergency (ER) | payer MEDICARE, MEDICAID, SELFPAY ==
--- NOTE | ~2024-12-31 | XR_ITS ---
EXAMINATION: XR CHEST CLINICAL INFORMATION: pain COMPARISON: X-ray 11/08/2015 TECHNIQUE: 2 views of the chest were obtained. FINDINGS: The cardiomediastinal silhouette is within normal limits. Mild right hemidiaphragm elevation. There is no focal consolidation, edema, or effusion. No pneumothorax. No acute osseous abnormality. XR/XR chest 2V IMPRESSION: No acute cardiopulmonary findings Electronically signed by: Gerald Lazo MD 12/31/2024 01:45 PM [facility]
--- NOTE | 2024-12-31 12:53 | ECG_ITS ---
Test Reason : CP Blood Pressure : */* mmHG Vent. Rate : 94 BPM Atrial Rate : 94 BPM P-R Int : 146 ms QRS Dur : 84 ms QT Int : 334 ms P-R-T Axes : 56 23 52 degrees QTcB Int : 417 ms Normal sinus rhythm Possible Left atrial enlargement Borderline ECG When compared with ECG of 03-Apr-2015 11:45, No significant change was found Referred By: Generic ED Physician Electronically Signed By: BONNY VENEGAS
[2024-12-31 13:18] VITALS: BP 168/101; PULSE 94; RESP 18; TEMP 36.9; O2SAT 97; BMI 34.2
[2024-12-31 13:37] LABS: MANUAL DIFF FLAG NO
[2024-12-31 13:39] LABS: Hematocrit 47.6 % (37.0-47.0); Hemoglobin 14.8 g/dl (12.0-16.0); Imm Gran Abs Auto 0.02 X10*3/uL (0.00-0.03); Imm Gran Pct Auto 0.2 % (0.0-0.4); Lymphocytes Absolute Auto 2.0 X10*3/uL (1.2-4.9); Mean Corpuscular HGB Conc 31.1 g/dl (31.0-35.0); Mean Corpuscular Hemoglobin 29.7 pg (27.0-33.0); Mean Corpuscular Volume 95.4 fL (80.0-98.0); NRBC Abs Auto 0.000 X10*3/uL (0.0-0.012); NRBC Pct Auto 0.0 /100WBC (0.0-0.2); Platelet Count 262 X10*3/uL (160-400); Red Blood Count 4.99 X10*6/uL (4.20-5.50); White Blood Count 8.4 X10*3/uL (4.8-10.8)
[2024-12-31 14:05] LABS: Alanine Aminotransferase 17 U/L (0-31); Albumin Level 4.1 g/dL (3.5-5.0); Alkaline Phosphatase 105 U/L (39-117); Anion Gap 10 (12-20); Aspartate Amino Transferase 20 U/L (5-31); Blood Urea Nitrogen 8 mg/dL (9-16); Calcium 9.8 mg/dL (8.4-10.2); Carbon Dioxide 30 mmol/L (22-29); Chloride 105 mmol/L (96-108); Creatinine Clr Calc Pharmacy 97.3; Estimated Glomerular Filt Rate > 60; Potassium 4.2 mmol/L (3.3-5.1); Sodium 141 mmol/L (135-145); Total Protein 7.2 g/dL (6.5-8.0)
[2024-12-31 14:14] LABS: Troponin-I High Sensitivity < 2.7 ng/L (<3.5-17.0)
[2024-12-31 14:22] LABS: Resp Syncy Virus RNA Qual PCR NEGATIVE (Negative); SARS COV2 PCR INHOUSE NEGATIVE (Negative)
[2024-12-31 15:00] LABS: Magnesium 1.9 mg/dL (1.6-2.6)
[2024-12-31 16:01] VITALS: BP 160/86; PULSE 87
[2024-12-31 16:02] VITALS: BP 157/93; PULSE 81
[2024-12-31 16:03] VITALS: BP 149/91; PULSE 95; RESP 20; TEMP 36.9; O2SAT 94
--- NOTE | 2024-12-31 16:38 | ED.CHESTPAIN ---
HPI - Chest Pain General Chief Complaint: Chest Pain Stated Complaint: Cp, flu like symptoms Time Seen by Provider: 12/31/24 16:04 Source: patient, RN notes reviewed and old records reviewed Mode of arrival: ambulatory Limitations: no limitations History of Present Illness ED Provider: Evangelista HPI narrative: 64-year-old female presents for evaluation of multiple complaints. Patient reports that she fell 11 days ago She reports that her right knee gave out causing her to fall. She reports multiple previous orthopedic surgeries to both lower extremities causing multiple falls. The patient reports that she also fell yesterday after getting dizzy pain Currently she is not dizzy. She also complains of right-sided flank and back pain pain She complains of cough and subjective fevers and chills. She is concerned for pneumonia. She has been using lidocaine patches, tizanidine and ibuprofen with good relief of her right flank pain She also reports that she has a pimple on her right breast that was draining yesterday. The area is red and painful Related Data Home Medications ?Medication ?Instructions ?Recorded ?Confirmed albuterol sulfate 90 mcg/actuation inhalation PRN Shortness Of Breath 03/31/20 06/18/24 aerosol inhaler Or Wheezing cyanocobalamin (vitamin B-12) 1,000 mcg IM 03/31/20 06/18/24 1,000 mcg/mL injection solution mometasone 0.1 % topical cream appl topical DAILY 03/31/20 06/18/24 paroxetine HCl 10 mg tablet 10 mg PO DAILY 03/31/20 06/18/24 levothyroxine 50 mcg tablet 50 mcg PO DAILY 06/14/20 06/18/24 naloxone 4 mg/actuation nasal spray 0 spray intranasal 04/04/22 06/18/24 kqvrgslpz-itwcvfsiv-joemjcla-scop 1 tab PO TID 12/01/22 06/18/24 16.2 mg-0.1037 mg-0.0194 mg tablet (Phenohytro) ibuprofen 800 mg tablet 800 mg PO TID 03/12/23 06/18/24 fluticasone furoate 100 1 inh inhalation DAILY 06/18/23 06/18/24 mcg/actuation blister powder for inhalation (Arnuity Ellipta) cholecalciferol (vitamin D3) 25 25 mcg PO DAILY 04/14/24 06/18/24 mcg (1,000 unit) capsule (Vitamin D3) hydrocodone 5 mg-acetaminophen 325 1 tab PO Q6H PRN 06/18/24 06/18/24 mg tablet tizanidine 2 mg tablet 2 mg PO BEDTIME 12/22/24 Previous Rx's ?Medication ?Instructions ?Recorded ABD gauze pads 1 box #1 ea 05/21/23 Kerlix gauze pads 1 box #1 ea 05/21/23 acetaminophen 500 mg capsule 1,000 mg (2 x 500 mg) PO Q6H PRN 04/14/24 pain #60 caps diazepam 2 mg tablet (Valium) 2 mg PO TID PRN muscle spasm #7 10/25/24 tabs ibuprofen 600 mg tablet 600 mg PO Q8H PRN fever or pain 10/25/24 #30 tabs mesalamine 0.375 gram 1.5 g (4 x 0.375 gram) PO QAM #120 12/22/24 capsule,extended release 24 hr caps (Apriso) doxycycline hyclate 100 mg tablet 100 mg PO BID #14 tabs 12/31/24 Allergies Allergy/AdvReac Type Severity Reaction Status Date / Time sertraline (From ZOLOFT) Allergy Severe GI Verified 12/31/24 13:18 UPSET/LETHARGY/CONFUSION atorvastatin (ATORVASTATIN) Allergy Intermediate SEVER Verified 12/31/24 13:18 MUSCLE/FOOT PAIN oxycodone (OXYCODONE) Allergy Intermediate GI Verified 12/31/24 13:18 UPSET,CONFUSION cefaclor (From Ceclor) Allergy Mild DYSPNEA Verified 12/31/24 13:18 Penicillins Allergy Mild DYSPNEA Verified 12/31/24 13:18 vancomycin (Vancomycin) Allergy Mild ITCHING Verified 12/31/24 13:18 acetaminophen Allergy Unknown Unknown Verified 12/31/24 13:18 (Tylenol-Codeine #3) penicillin V Allergy Unknown unknown Verified 12/31/24 13:18 metronidazole (From Flagyl) AdvReac Unknown Unknown Verified 12/31/24 13:18 Bactrim Allergy Unknown Unknown Uncoded 12/22/24 14:19 Review of Systems Constitutional: Constitutional: Denies body ache(s), Denies fever(s) and Denies headache(s) Eyes: Eyes: Denies blurry vision ENT: Denies vertigo, Reports dizziness, Denies dry mouth and Denies headache(s) Cardiovascular: Cardiovascular: Denies chest pain, Denies epigastric discomfort, Denies syncope, Denies dyspnea and Denies dyspnea on exertion Respiratory: Respiratory: Reports chest congestion, Reports cough, Denies pain on inspiration, Denies pain with cough, Denies dyspnea and Denies dyspnea on exertion Gastrointestinal: Gastrointestinal: Denies abdominal pain, Denies nausea and Denies vomiting Musculoskeletal: Musculoskeletal: Reports arthralgias, Reports joint swelling and Reports limited range of motion Integumentary/Breasts: Skin/Breast: Denies rash Neurologic: Denies vertigo, Reports dizziness, Denies syncope and Denies headache(s) Psychiatric: Psychiatric: Denies anxiety PMFSH Past Medical History Medical History Nicotine dependence, cigarettes, uncomplicated Abdominal wall mass Female bladder prolapse B12 deficiency Depression Hyperlipidemia Osteopenia Obesity Thyroid nodule Hypothyroidism (~2014) Surgical History Hx of abdominal surgery (04/30/23) History of incisional hernia repair (12/11/22) Previous section Hx of laparoscopy History of partial hysterectomy (05/2022) History of colonoscopy History of foot surgery Hx of mammogram Hx of cholecystectomy Hx of tonsillectomy History of esophagogastroduodenoscopy (EGD) Family History Family History Father Heart disease Mother Cardiomyopathy Goiter Maternal Grandfather Stomach cancer Social History Social History Alcohol intake: current Alcohol intake frequency: does not drink Patient Tobacco Use Status: Current everyday Tobacco user Tobacco use type: Cigarette Cigarette Packs Per Day: 0.5 Cigarettes Per Day: 10.0 Years Smoked: 40 - onset 22, 1.5-2ppd x 40yrs, 60+PYH Second Hand Smoke Exposure: No Advance Directives: No Advance Directives Information Provided: No Physical Exam Vital Signs: Vital Signs: Last Vital Signs Temp 98.4 F 12/31/24 16:03 Pulse 95 12/31/24 16:03 Resp 20 12/31/24 16:03 BP 149/91 H 12/31/24 16:03 Pulse Ox 94 12/31/24 16:03 O2 Del Method Room Air 12/31/24 16:03 BMI result Body Mass Index 34.2 Const: General: healthy appearing, comfortable, no acute distress, alert and awake Nutritional Appearance: well nourished Orientation/consciousness: patient oriented x3 HEENT: Head: Yes normocephalic and Yes atraumatic Eyes: Eyelids: Yes eyelids normal Conjunctivae: conjunctivae normal Sclerae: sclerae normal Corneas: corneas normal Pupils: Equal, round and reactive pupils present EOM: EOMs intact bilaterally Neck: Neck: Yes full ROM Chest: Other: There is a small, 2 cm area of erythema inferior to the right breast at about the 8 o'clock position. There is some induration, no fluctuance. Chest palpation & inspection: normal palpation of entire chest wall and no crepitus Resp: Effort & Inspection: normal respiratory effort, able to speak in complete sentences, no audible wheezes and not labored Auscultation: clear to auscultation bilaterally Cardio: Rate: regular rate Rhythm: regular rhythm GI: Inspection: No distended Palpation (GI): Soft to palpation, not firm, nontender, no guarding and not rigid Skin: General skin exam: elasticity normal Neuro: General: patient oriented x3 Cranial nerves: Yes Equal, round and reactive pupils present and Yes Bilaterally intact EOM present Cognition (Neuro): normal cognition Medical Decision Making Medical Decision Making MDM Narrative: 64-year-old female presents for evaluation of multiple complaints. She reports 4 falls in the last couple of weeks. She states that she follows due to her legs giving out. She reports being dizzy and falling yesterday. Currently she is asymptomatic. I did discuss possible physical therapy evaluation with the patient and she declines. She has no interest in going through intermediate. She feels safe at home. She reports that she has been set up with physical therapy in the past and does not feel that she would benefit from this currently. Given her dizziness and fall yesterday a workup was obtained the includes labs, EKG, a chest x-ray was ordered. The patient's labs show no leukocytosis or significant anemia. Chemistries without any concerning abnormalities warranting intervention. EKG is nonischemic without arrhythmia. The patient's vital signs are stable, she is not hypotensive. She rules out for ACS, no evidence of pneumonia. Wells score of 0. He will suspicion for PE. This time I do not feel the patient requires any additional emergent workup. I did discuss possible rib x-rays but given that the chest x-ray shows no pneumothorax or obvious displaced rib fracture this was not pursued. I will order a course of doxycycline for a mild right breast cellulitis. Differential Diagnosis Differential Diagnoses: The differential diagnosis associated with the presentation includes Cellulitis Upper respiratory infection Pneumonia Abscess ACS Rib fracture Pneumothorax Lab Data MDM Lab Attestation statement: I reviewed the patient's lab results. As discussed above 12/31/24 13:32 12/31/24 13:32 Labs: Lab Results 12/31/24 Range/Units 13:32 WBC 8.4 (4.8-10.8) X10*3/uL RBC 4.99 (4.20-5.50) X10*6/uL Hgb 14.8 (12.0-16.0) g/dl Hct 47.6 H (37.0-47.0) % MCV 95.4 (80.0-98.0) fL MCH 29.7 (27.0-33.0) pg MCHC 31.1 (31.0-35.0) g/dl RDW 14.6 (11.0-16.0) % Plt Count 262 (160-400) X10*3/uL MPV 9.4 (9.4-12.3) fL Immature Gran % (Auto) 0.2 (0.0-0.4) % Neut % (Auto) 65.5 (45-73) % Lymph % (Auto) 23.2 (20-40) % [place] % (Auto) 8.6 (2-11) % Eos % (Auto) 1.8 (0-4) % Baso % (Auto) 0.7 (0-2) % Lymph # (Auto) 2.0 (1.2-4.9) X10*3/uL [place] # (Auto) 0.7 (0.1-1.2) X10*3/uL Eos # (Auto) 0.2 (0.0-0.4) X10*3/uL Baso # (Auto) 0.1 (0.0-0.2) X10*3/uL Abs Immat Gran (auto) 0.02 (0.00-0.03) X10*3/uL Absolute Neuts (auto) 5.5 (2.0-8.3) x10*3/uL Absolute Nucleated RBC 0.000 (0.0-0.012) X10*3/uL Nucleated RBC % (auto) 0.0 (0.0-0.2) /100WBC Sodium 141 (135-145) mmol/L Potassium 4.2 (3.3-5.1) mmol/L Chloride 105 (96-108) mmol/L Carbon Dioxide 30 H (22-29) mmol/L Anion Gap 10 L (12-20) BUN 8 L (9-16) mg/dL Creatinine 0.70 (0.5-1.4) mg/dL Estim Creat Clear Calc 97.3 Estimated GFR > 60 Random Glucose 82 (60-115) mg/dL Calcium 9.8 (8.4-10.2) mg/dL Magnesium 1.9 (1.6-2.6) mg/dL Total Bilirubin 0.4 (0.0-1.0) mg/dL AST 20 (5-31) U/L ALT 17 (0-31) U/L Alkaline Phosphatase 105 (39-117) U/L Troponin I High Sens < 2.7 (<3.5-17.0) ng/L Total Protein 7.2 (6.5-8.0) g/dL Albumin 4.1 (3.5-5.0) g/dL Influenza Type A (PCR) NEGATIVE (Negative) Influenza Type B (PCR) NEGATIVE (Negative) RSV RNA Qual (PCR) NEGATIVE (Negative) SARS-CoV-2 RNA (RT-PCR) NEGATIVE (Negative) Independent Interpretation I performed an independent interpretation of an: EKG (Normal sinus rhythm with a rate of [address]-T changes) and Plain X-Ray Interpretation: No infiltrates, effusions or pneumothorax Discharge Plan Discharge Clinical Impression: Muscle strain, Cellulitis of breast Patient Disposition: Home, Self-Care Instructions: Muscle Strain (ED) Additional Instructions: Your workup in the ER today was reassuring. This includes your EKG, labs and chest x-ray. The pain on your right side and back is likely due to a muscle strain. You did not have pneumonia on x-ray. I recommend taking doxycycline twice daily for 1 week to treat the infection on your right breast. You may wait a day or 2 to see if it gets better without antibiotics Return for new or worsening symptoms Prescriptions: New doxycycline hyclate 100 mg tablet 100 mg PO BID Qty: 14 0RF No Action (DME) ABD gauze pads 1 box 9x5 See Rx Instructions .Route .MEDSUPPLY Qty: 1 6RF Rx Instructions: As directed (DME) Kerlix gauze pads 1 box 6x6 See Rx Instructions .Route .MEDSUPPLY Qty: 1 1RF Rx Instructions: As directed ibuprofen 600 mg tablet 600 mg PO Q8H PRN (Reason: fever or pain) Qty: 30 0RF diazepam [Valium] 2 mg tablet 2 mg PO TID PRN (Reason: muscle spasm) Qty: 7 0RF levothyroxine 50 mcg tablet 50 mcg PO DAILY cyanocobalamin (vitamin B-12) 1,000 mcg/mL solution 1,000 mcg IM paroxetine HCl 10 mg tablet 10 mg PO DAILY albuterol sulfate 90 mcg/actuation HFA aerosol inhaler inhalation PRN (Reason: Shortness Of Breath Or Wheezing) mometasone 0.1 % cream topical DAILY naloxone 4 mg/actuation spray,non-aerosol 0 spray intranasal ibuprofen 800 mg tablet 800 mg PO TID Arnuity Ellipta 100 mcg/actuation blister with device 1 inh inhalation DAILY cholecalciferol (vitamin D3) [Vitamin D3] 25 mcg (1,000 unit) capsule 25 mcg PO DAILY acetaminophen 500 mg capsule 1,000 mg PO Q6H PRN (Reason: pain) Qty: 60 0RF npeldowup-ylmlgj-igyjhntw-scop [Phenohytro] 16.2-0.1037 -0.0194 mg tablet 1 tab PO TID hydrocodone-acetaminophen 5-325 mg tablet 1 tab PO Q6H PRN tizanidine 2 mg tablet 2 mg PO BEDTIME mesalamine [Apriso] 0.375 gram capsule,extended release 24hr 1.5 g PO QAM Qty: 120 2RF Discharge Date/Time: 12/31/24 17:09 Print Language: Anguillan
== END 2024-12-31 17:09 | disposition home or self-care (01) ==
PROVIDERS: Physician Assistant; Emergency Provider Emergency Medicine; PCP Internal Medicine Geriatric Medicine
DX: S29.011A Strain of muscle and tendon of front wall of thorax, initial encounter (principal); N61.0 Mastitis without abscess; X58.XXXA Exposure to other specified factors, initial encounter; Y93.9 Activity, unspecified; Y92.9 Unspecified place or not applicable; Z03.818 Encounter for observation for suspected exposure to other biological agents ruled out; E78.5 Hyperlipidemia, unspecified; F17.200 Nicotine dependence, unspecified, uncomplicated; Z71.6 Tobacco abuse counseling
CPT/HCPCS: 36415; 71046; 80053; 83735; 84484; 85025; 87637; 93005; 99283

== ENCOUNTER → 2024-12-31 12:53 | Outpatient (BNV) | payer MEDICARE, MEDICAID, SELFPAY | PROVIDERS: Emergency Provider Emergency Medicine; PCP Internal Medicine Geriatric Medicine; Visit Provider Internal Medicine | DX: R07.9 Chest pain, unspecified (principal) | CPT/HCPCS: 93010 ==

== ENCOUNTER → 2024-12-31 13:23 | Outpatient (BNV) | payer MEDICARE, MEDICAID, SELFPAY | PROVIDERS: PCP Internal Medicine Geriatric Medicine; Visit Provider Radiology Diagnostic Ultrasound | DX: R07.9 Chest pain, unspecified (principal) | CPT/HCPCS: 71046 ==

== ENCOUNTER 2025-01-30 15:48 | Outpatient (REF) | payer MEDICARE, MEDICAID, SELFPAY ==
--- NOTE | ~2025-01-30 | CT_ITS ---
EXAMINATION: CT LUNG SCREENING HISTORY: F17.210 - Nicotine dependence, cigarettes, uncomplicated TECHNIQUE: Low dose axial images were obtained from the sternal notch to upper abdomen without IV contrast per standard departmental protocol. Sagittal and coronal reformatted images were also obtained and reviewed. One or more of the following techniques was used for dose reduction: Automated exposure control, adjustment of the mA and/or kV according to patient size, use of iterative reconstruction technique. DLP: 72 mGy-cm COMPARISON: Comparison is made with the prior examination dated 01/23/2023. FINDINGS: Lung nodules: Again seen are scattered calcified granulomas in the right upper lobe (series 5, image 38), in the right middle lobe (series 5, image 69), in the right lower lobe (series 5, image 73), and in the left upper lobe (series 5, image 51). There are punctate nodules in the right upper lobe (series 5, images 26 and 55) without change. There is a stable 5 mm nodule in the left lower lobe (series 5, image 90). No new or suspicious pulmonary nodules are identified. Emphysema: none Coronary Calcification: mild Aortic Arch Calcification: mild Potentially Significant Incidentals : none Additional Chest Findings: There is no pleural or pericardial effusion. No mediastinal or axillary lymphadenopathy is identified. Visualized upper abdomen: The visualized portions of the liver, spleen, and adrenals have an unremarkable unenhanced appearance. CT/CT lung screening IMPRESSION: No suspicious pulmonary nodules are identified. LUNG-RADS ASSESSMENT: Lung-RADS 2: Benign MANAGEMENT: Continue annual screening with LDCT in 12 months Category S: N/A Electronically signed by: Stuart Cisneros MD 02/02/2025 07:39 AM [facility]
--- OUTSIDE RECORDS SUMMARY | 2025-01-30 16:41 | XMS_ITS | Encounter Summary ---
Author Organization [employer] Address [address] [place] [address] 7 [place] [address] Care Team Providers Care Linen Supervisor Name Role Phone Name, Krzysztof PERSON Primary Care Provider [phone] Encounter Details Date Type Department Care Team (Late st Contact Info) Description 08/31/2022 Orders Only [facility] MEDICINE [address] [place] [address] [phone] Name, MD Krzysztof [address] [place] [phone] Subclinical hypothyroidism Social History Tobacco Use Types [...] Care Team (Late st Contact Info) Description 02/10/2025 1:30 PM EST Clinical Support [facility] MEDICINE [address] [place] [address] [phone] Keely Person RN 02/11/2025 9:30 AM EST Nurse Only [facility] [place] [address] 02/18/2025 9:30 AM EST Office Visit [facility] [place] [address] Name, MD [place] [address] documented as of this encounter Procedures Procedure Name Priority Date/Time Associated Diagnosis Comments TSH W/REFLEX TO FT4 Routine 08/31/2022 8:48 AM EDT Subclinical hypothyroidism documented in this encounter Results * (ABNORMAL) TSH W/Reflex to FT4 (08/31/2022 8:48 AM EDT) TSH reflex Free T4 4.39(H) 0.32 - 4.0 uIU/mL [facility] Blood 08/31/2022 8:48 AM EDT 08/31/2022 11:21 AM EDT us Krzysztof Martell MD LAB BLOOD ORDERABLES Final Resul t [facility] [address] [place] [phone] documented in this encounter Visit Diagnoses Diagnosis Subclinical hypothyroidism Other specified acquired hypothyroidism documented in this encounter Care Teams Linen Supervisor Relationship Specialty Start Date End Date Name, MD [place] [address] PCP - General Family Medicine 02/12/18 documented as of this encounter
--- OUTSIDE RECORDS SUMMARY | 2025-01-30 16:41 | XMS_ITS | Encounter Summary ---
Author Organization [employer] Address [address] 7[address] [place] [address] Care Team Providers Care Gum Machine Operator Name Role Phone Name, Krzysztof PERSON Primary Care Provider [phone] Reason for Visit * Reason Onset Date Comments Med Refill 08/21/2024 Encounter Details Date Type Department Care Team ([facility] st Contact Info) Description 08/21/2024 Refill [facility] MED & PEDS [address] [place], [place] [phone] Trina August, ANNE [address] [place] [address] Social History Tobacco Use Types Packs/Day Years [...] Description 02/10/2025 1:30 PM EST Clinical Support [address] [phone] Keely Person, SAMRA 02/11/2025 9:30 AM EST Nurse Only [address] [address] 02/18/2025 9:30 AM EST Office Visit [address] [address] Name, MD Krzysztof [address] [place] [phone] documented as of this encounter Visit Diagnoses Not on filedocumented in this encounter Additional Health Concerns Assessment Noted Time PHQ-9 Depression Total Score: 0 05/29/19 24 9:06 AM EDT documented as of this encounter Care Teams Gum Machine Operator Relationship Specialty Start Date End Date Name, MD Krzysztof [address] [place] [phone] PCP - General Family Medicine 02/12/18 documented as of this encounter
--- OUTSIDE RECORDS SUMMARY | 2025-01-30 16:41 | XMS_ITS | Encounter Summary ---
Author Organization [employer] Address [address] [place] [address] Care Team Providers Care Engineer Second Assistant Name Role Phone Name, Krzysztof PERSON Primary Care Provider [phone] Reason for Visit * Reason Onset Date Comments Med Refill 09/04/2024 Encounter Details Date Type Department Care Team ([facility] st Contact Info) Description 09/04/2024 Refill [facility] MEDICINE [address] [place], [place] [phone] Name, MD Krzysztof [address] [place] [address] Social History Tobacco Use Types Packs/Day Years [...] Description 02/10/2025 1:30 PM EST Clinical Support [address] [address] Keely Person RN 02/11/2025 9:30 AM EST Nurse Only [address] [address] 02/18/2025 9:30 AM EST Office Visit [address] [address] Name, MD Krzysztof [address] [place] [phone] documented as of this encounter Visit Diagnoses Not on filedocumented in this encounter Additional Health Concerns Assessment Noted Time PHQ-9 Depression Total Score: 0 05/29/19 24 9:06 AM EDT documented as of this encounter Care Teams Engineer Second Assistant Relationship Specialty Start Date End Date Name, MD Krzysztof [address] [place] [phone] PCP - General Family Medicine 02/12/18 documented as of this encounter
--- OUTSIDE RECORDS SUMMARY | 2025-01-30 16:41 | XMS_ITS | Encounter Summary ---
Author Organization [employer] Address [address] [place] [address] 7 [place] [address] Care Team Providers Care Burr Grinder Name Role Phone Name, Krzysztof PERSON Primary Care Provider [phone] Reason for Visit * Reason Onset Date Comments Med Refill 08/21/2022 Encounter Details Date Type Department Care Team (Late st Contact Info) Description 08/21/2022 Refill [facility] MEDICINE [address] [place] [address] [phone] Name, MD Krzysztof [address] [place] [phone] Social History Tobacco Use Types Packs/Day Years [...] Description 02/10/2025 1:30 PM EST Clinical Support [facility] MEDICINE [address] [place] [phone] Keely Person RN 02/11/2025 9:30 AM EST Nurse Only [facility] MEDICINE [address] [place] [phone] 02/18/2025 9:30 AM EST Office Visit [facility] MEDICINE [address] [place] [phone] Name, [place] [address] documented as of this encounter Visit Diagnoses Not on filedocumented in this encounter Care Teams Burr Grinder Relationship Specialty Start Date End Date Name, [place] [address] PCP - General Family Medicine 02/12/18 documented as of this encounter
--- OUTSIDE RECORDS SUMMARY | 2025-01-30 16:41 | XMS_ITS | Encounter Summary ---
Author Organization [employer] Address [address] 7[address] [place] [address] Care Team Providers Care Cloth Weaver Name Role Phone Name, Krzysztof PERSON Primary Care Provider [phone] Reason for Visit * Reason Onset Date Comments Med Refill 08/21/2024 Encounter Details Date Type Department Care Team ([facility] st Contact Info) Description 08/21/2024 Refill [facility] CH[facility] MED & PEDS [address] [place], [place] [phone] Odilia Niño, LYNNETTE [address] [place] [address] Vitamin B 12 deficiency Social History Tobacco [...] Description 02/10/2025 1:30 PM EST Clinical Support [address] [address] Keely Person RN 02/11/2025 9:30 AM EST Nurse Only [address] [address] 02/18/2025 9:30 AM EST Office Visit [address] [address] Name, MD Krzysztof [address] [place] [phone] documented as of this encounter Visit Diagnoses Diagnosis Vitamin B 12 deficiency Other B-complex deficiencies documented in this encounter Additional Health Concerns Assessment Noted Time PHQ-9 Depression Total Score: 0 05/29/19 24 9:06 AM EDT documented as of this encounter Care Teams Cloth Weaver Relationship Specialty Start Date End Date Name, MD Krzysztof [address] [place] [id number] PCP - General Family Medicine 02/12/18 documented as of this encounter
--- OUTSIDE RECORDS SUMMARY | 2025-01-30 16:41 | XMS_ITS | Clinical Summary ---
Author Organization [employer] Address [address] [place] [address] 7t [place] [address] Care Team Providers Care Shipping Order Clerk Name Role Phone Name, Krzysztof PERSON Primary Care Provider [phone] Allergies Active Allergy Reactions Criticality Noted Date [...] IF NEEDED 18 g 1 023 Active Mometasone Furoate (Asmanex HFA) 100 [...] times daily. 60 capsule 2 025 Active PHENobarbital-hy oscyamine-atropi ne-scopoloamine () 16.2 MG tablet TAKE 1 TABLET BY MOUTH THREE TIMES A DAY 21 tablet 025 Active loratadine (Claritin) 10 MG tablet TAKE 1 TABLET BY MOUTH EVERY DAY 90 tablet 1 025 Active naloxone (Narcan) 4 mg/0.1 mL nasal [...] INTO EACH NOSTRIL EVERY DAY 48 g 025 Active omeprazole OTC (PriLOSEC OTC) 20 MG [...] DAILY DIRECTED 238 g 3 025 Active HYDROcodone-acet aminophen ([employer] Mdl) 5-325 MG tabletIndication s:Chronic right hip pain Take 1 tablet by mouth every 6 (six) hours if needed for severe pain. 112 tablet 025 Active tiZANidine (Zanaflex) 2 MG tablet TAKE 1 TABLET BY MOUTH EVERYDAY AT BEDTIME 90 tablet 1 025 Active Multiple Vitamin (Daily-Willie Multivitamin) tabletIndication s:Tiredness TAKE 1 TABLET BY MOUTH EVERY DAY 90 tablet 3 025 Active doxycycline (Vibra-Tabs) 100 MG tablet Take 1 tablet (100 mg) by mouth 2 times daily for 10 days. Take with a full glass of water and do not lie down for at least 30 minutes after. 20 tablet 025 2024 Active doxycycline (Vibra-Tabs) 100 MG tablet Take 100 mg by mouth 2 times daily. 023 2024 Discontinued Multiple Vitamin (multivitamin) capsuleIndicatio ns:Tiredness Take 1 capsule by mouth Once per day. 30 capsule 11 024 2024 Discontinued tiZANidine (Zanaflex) 2 MG tablet TAKE 1 TABLET BY MOUTH EVERYDAY AT BEDTIME 30 tablet 025 2024 Discontinued HYDROcodone-acet aminophen ([employer] Mdl) 5-325 MG tablet 2024 Discontinued( Reorder (will not trigger notification to Pharmacy)) Hospital, [...] 01/07/2018 10/12/2022 Vaginal pessary in situ 07/21/2016 0603/2022 Midline cystocele 01/27/2016 07/14/2022 Overview (07/14/2022): Last [...] Encounters Date Type Department Care Team Description 01/23/2025 Orders Only [facility] [address] [facility] [place] [address] Name, MD Krzysztof 01/20/2025 Refill [facility] [address] [facility] [place] [place] [address] Name, MD Krzysztof Tiredness 01/15/2025 Refill [facility] [address] [facility] [place] [address] Name, MD Krzysztof 01/12/2025 2:00 PM EST Nurse Only [facility] [address] [facility] [place] [address] Skala, Angelica, RN B12 deficiency 01/12/2025 Telephone [facility] [address] [facility] [place] [address] Krzysztof Martell MD Appointment Request 01/12/2025 Refill [facility] [address] [facility] [place] [address] Krzysztof Martell MD Chronic right hip pain (Primary Dx) 01/12/2025 Travel 12/31/2024 Orders Only GENERIC EXTERNAL DATA DEPARTMENT Provider, Generic External Data 12/13/2024 Refill [facility] [address] [facility] [place] [address] Krzysztof Martell MD 12/12/2024 9:30 AM EDT Nurse Only [facility] [address] [facility] [place] [address] Yvonne Danielson, SAMRA Vitamin B 12 deficiency 12/12/2024 Refill [facility] [address] [place] [address] Krzysztof Martell MD 12/12/2024 Travel 12/11/2024 Refill [facility] [address] [place] [address] Trina August NP Irritable bowel syndrome with both constipation and diarrhea 12/11/2024 Refill [facility] [address] [place] [address] Krzysztof Martell MD 12/11/2024 Travel 11/28/2024 9:20 AM EDT Office Visit [facility] [address] [place] [address] Morris Brambila MD Oral thrush (Primary Dx) 11/28/2024 Refill [facility] [address] [place] [address] Krzysztof Martell MD 11/28/2024 Travel 11/27/2024 Telephone [facility] [address] [place] [address] Krzysztof Martell MD 11/27/2024 Travel 11/25/2024 Telephone [facility] [address] [place] [address] Krzysztof Martell MD Nurse Triage 11/25/2024 Orders Only GENERIC EXTERNAL DATA DEPARTMENT Provider, Generic External Data 11/12/2024 9:30 AM EDT Clinical Support [facility] [address] [place] [address] Chitra Madrid RN Encounter for immunization; Vitamin B 12 deficiency 11/12/2024 Travel 11/10/2024 10:30 AM EDT Telemedicine [address] [address] Keely Person RN Long-term current use of opiate analgesic 11/10/[address] [address] Keely Person RN Lumbar back pain with radiculopathy affecting left lower extremity (Primary Dx) 11/10/2024 Travel 11/09/2024 Travel 11/08/[address] [address] Name, MD Krzysztof from Last 3 Months Immunizations Immunization Administration [...] Description 02/10/2025 1:30 PM EST Clinical Support [address] [address] Keely Person, SAMRA 02/11/2025 9:30 AM EST Nurse Only [address] [address] 02/18/2025 9:30 AM EST Office Visit [address] [address] Name, MD Krzysztof [address] [place] [address] Health Maintenance Due Date Last Done Comments CT Colonography 1960 FIT DNA/Cologuard 1960 FOBT 1960 HIV Screening 1960 Sigmoidoscopy 1960 Hepatitis C Screening 1980 RSV Patients and Patients Aged 60 years or older (1 - Risk 50-74 years 1-dose series) 2012 Zoster Vaccines (1 of 2) 2012 FIT 11/03/2023 11/02/2022 COVID-19 Vaccine ( season) 2024 01/18/2022, 03/02/2021, 05/19/2020, Additional history exists Mammogram 02/08/2025 02/09/2024, 01/13, 01/03/2022 Depression Monitoring 03/08/2025 09/05/2024, 025 Disability Screening 09/05/2025 09/05/2024 SDOH Screening 09/05/2025 09/05/2024 Alcohol/Substance Use Screening 10/17/2025 10/17/2024 Tobacco Screening 11/28/2025 11/28/2024 Cervical Cancer Screening 05/10/2027 HPV/Cotest 05/10/2027 Pap Smear 05/10/2027 05/09/2022 Lipid Panel 06/30/2027 06/29/2022, 04/12, 10/27/2020, Additional history exists Colonoscopy 07/12/2033 07/13/2023, 08/24/2016 Colorectal Cancer Screening 07/12/2033 DTaP/Tdap/Td Vaccines (4 - Td or Tdap) 12/10/2033 12/11/2023, 01/01/2013, 10/21/2008 Pneumococcal Vaccine: 50+ Years Completed 10/17/2024 Influenza [...] Name Priority Date/Time Associated Diagnosis Comments XR CHEST 2 VIEWS Routine 12/31/2024 1:38 PM EST MAGNESIUM Routine 12/31/2024 1:32 PM EST HIGH SENSITIVITY TROPONIN I Routine 12/31/2024 1:32 PM EST COMPREHENSIVE METABOLIC PANEL Routine 12/31/2024 1:32 PM EST CBC WITH AUTO DIFFERENTIAL Routine 12/31/2024 1:32 PM EST SARS COV2/INFLUENZA A/B AND RSV RNA QL NAAT Routine 12/31/2024 1:32 PM EST TSH Routine 11/25/2024 8:26 AM EDT T4, [...] Recently Relevant to Health Maintenance Results * XR Chest 2 Views (12/31/2024 1:38 PM EST) Anatomical Region Laterality Modality Chest Radiographic Starla ging 12/31/2024 1:38 PM EST Narrative 12/31/2024 1:48 PM EST [address] [address] XRay Report Signed Patient: Tenisha Jones V MR#: [id number] 14 : 1960 Acct:[id number] Age/Sex: 64 / F ADM Date: 12/31/24 Loc: HO.ED Attending Dr: Ordering Physician: Generic ED Physician Date of Service: 12/31/24 Procedure(s): XR chest 2V Accession Number(s): [id number] cc: Generic ED Physician; Name,Krzysztof PERSON Reason for Exam: pain EXAMINATION: XR CHEST CLINICAL INFORMATION: pain COMPARISON: X-ray 11/08/2015 TECHNIQUE: 2 views of the chest were obtained. FINDINGS: The cardiomediastinal silhouette is within normal limits. Mild right hemidiaphragm elevation. There is no focal consolidation, edema, or effusion. No pneumothorax. No acute osseous abnormality. XR/XR chest 2V IMPRESSION: No acute cardiopulmonary findings Electronically signed by: Gerald Lazo MD 12/31/2024 01:45 PM [facility] Dictated By: Gerald Lazo MD Signed By: <Electronically signed by Gerald Lazo MD in OV> 12/31/24 1345 DD/ 1338 TD/TT: 12/31/24 1342 Supervisor [employer]: Procedure Note Donotuseinterpreter, Image - 12/31/2024 [place] [address] XRay Report Signed Patient: Tenisha Jones R#: [id number] 14 : 1960Acct:[id number] Age/Sex: 64 / FADM Date: 12/31/24 Loc: HO.ED Attending Dr: Ordering Physician: Generic ED Physician Date of Service: 12/31/24 Procedure(s): XR chest 2V Accession Number(s): [id number] cc: Generic ED Physician; Name,Krzysztof PERSON Reason for Exam: pain EXAMINATION: XR CHEST CLINICAL INFORMATION: pain COMPARISON: X-ray 11/08/2015 TECHNIQUE: 2 views of the chest were obtained. FINDINGS: The cardiomediastinal silhouette is within normal limits. Mild right hemidiaphragm elevation. There is no focal consolidation, edema, or effusion. No pneumothorax. No acute osseous abnormality. XR/XR chest 2V IMPRESSION: No acute cardiopulmonary findings Electronically signed by: Gerald Lazo MD 12/31/2024 01:45 PM EST Dictated By: Gerald Lazo MD Signed By: <Electronically signed by Gerald Lazo MD in OV> 12/31/24 1345 DD/ 1338 TD/TT: 12/31/24 1342 Supervisor [employer]: MEETA [facility] External Provider IMG XR PROCEDURES Final Result * High Sensitivity Troponin I (12/31/2024 1:32 PM EST) Pathologist [facility] TROPONIN I HIGH SENSITIVITY <2.7 <3.5 - 17.0 ng/L [facility] Comment:The Retana high sens itivity Troponin-I results should beused in conjunction with other diagnostic information suchas ECG, clinical observations and information, and patientsymptoms to aid in the diagnosis of MS. 12/31/2024 1:32 PM EST 12/31/2024 1:36 PM EST Generic External Data Provider LAB BLOOD ORDERAB LES Final Result [facility] [address] [place] [phone] * SARS-CoV-2 RNA, Influenza A/B, and RSV RNA, Ql NAAT (12/31/2024 1:32 PM EST) Pathologist [facility] Influenza A PCR NEGATIVE Negative [facility] Influenza B PCR NEGATIVE Negative [facility] Resp Syncy Virus RNA Qual PCR NEGATIVE Negative [facility] SARS COV2 PCR NEGATIVE Negative [facility] Comment:All test results mus t be correlated with clinical findings.Negative results do not preclude SARS-CoV2, influenza Avirus, influenza B virus and/or RSV infectionand should not be used as the sole basis for treatment orother patient management decisions. Negative results must becombined with clinical observations, patient history, andepidemiological information.This test has not been evaluated for monitoring treatment ofinfection.This test has been authorized by the FDA under an EmergencyUse Authorization (EUA) for use by authorized laboratories.Testing performed on the FusionOne GeneXpert utilizingreal-time RT-PCR.All SARS CoV2 and positive influenza A/B results arereported to [facility]. 12/31/2024 1:32 PM EST 12/31/2024 1:36 PM EST us Generic External Data Provider LAB MICROBIOLOGY - GENERAL ORDERABLES Final Result [facility] [address] [place] [phone] * (ABNORMAL) CBC auto differential (12/31/2024 1:32 PM EST) Only the most recent of2 resultswithin the time period is included. White Blood Count 8.4 4.8 - 10.8 X10*3/uL [facility] Red Blood Count 4.99 4.20 - 5.50 X10*6/uL [facility] Hemoglobin 14.8 12.0 - 16.0 g/dl [facility] Hematocrit 47.6(H) 37.0 - 47.0 % [facility] Mean Corpuscular Volume 95.4 80.0 - 98.0 fL [facility] Mean Corpuscular Hemoglobin 29.7 27.0 - 33.0 pg [facility] Mean Corpuscular HGB Conc 31.1 31.0 - 35.0 g/dl [facility] Red Cell Distribution Width 14.6 11.0 - 16.0 % [facility] Platelet Count 262 160 - 400 X10*3/uL [facility] Mean Platelet Volume 9.4 9.4 - 12.3 fL [facility] Neutrophils Percent Auto 65.5 45 - 73 % [facility] Imm Gran Pct Auto 0.2 0.0 - 0.4 % [facility] Lymphocytes Percent Auto 23.2 20 - 40 % [facility] Monocytes Percent Auto 8.6 2 - 11 % [facility] Eosinophils Percent Auto 1.8 0 - 4 % [facility] Basophils Percent Auto 0.7 0 - 2 % [facility] NRBC Pct Auto 0.0 0.0 - 0.2 /100WBC [facility] Neutrophils Absolute Auto 5.5 2.0 - 8.3 x10*3/uL [facility] Imm Gran Abs Auto 0.02 0.00 - 0.03 X10*3/uL [facility] Lymphocytes Absolute Auto 2.0 1.2 - 4.9 X10*3/uL [facility] Monocytes Absolute Auto 0.7 0.1 - 1.2 X10*3/uL [facility] Eosinophils Absolute Auto 0.2 0.0 - 0.4 X10*3/uL [facility] Basophils Absolute Auto 0.1 0.0 - 0.2 X10*3/uL [facility] NRBC Abs Auto 0.000 0.0 - 0.012 X10*3/uL [facility] 12/31/2024 1:32 PM EST 12/31/2024 1:36 PM EST us Generic External Data Provider LAB BLOOD ORDERAB LES Final Result Performing Organization Address [facility]/ZIP Co de Phone Number [facility] [address] [place] [phone] * Magnesium (12/31/2024 1:32 PM EST) Magnesium 1.9 1.6 - 2.6 mg/dL [facility] 12/31/2024 1:32 PM EST 12/31/2024 1:36 PM EST Generic External Data Provider LAB BLOOD ORDERAB LES Final Result Performing Organization Address [facility] Co de Phone Number [facility] [address] [place] [phone] * (ABNORMAL) Comprehensive Metabolic Panel (12/31/2024 1:32 PM EST) Only the most recent of2 resultswithin the time period is included. Sodium 141 135 - 145 mmol/L [facility] Potassium 4.2 3.3 - 5.1 mmol/L [facility] Chloride 105 96 - 108 mmol/L [facility] Carbon Dioxide 30(H) 22 - 29 mmol/L [facility] Anion Gap 10(L) 12 - 20 [facility] Urea Nitrogen (BUN) 8(L) 9 - 16 mg/dL [facility] Creatinine, Serum 0.70 0.5 - 1.4 mg/dL [facility] Creatinine Clr Calc Pharmacy 97.3 [facility] Comment:Provided height and weight: 167.64 cm,96.162 kg.eGFR (calculated from the MDRD study equation) and eCrCl(calculated from the Cockcroft-Gault equation) are based ondifferent parameters and may not yield comparable results.If eCrCl result is absurd, please check patient'sheight/weight. Estimated Glomerular Filt Rate >60 [facility] Comment:Chronic Kidney Disea se: Estimated GFR < 60 mL/min/1.03u8Ajlugu Kidney Disease: Estimated GFR < 15 mL/min/1.73m2 Glucose 82 60 - 115 mg/dL [facility] Calcium 9.8 8.4 - 10.2 mg/dL [facility] Bilirubin, Total 0.4 0.0 - 1.0 mg/dL [facility] Aspartate Amino Transferase 20 5 - 31 U/L [facility] Alanine Aminotransferase 17 0 - 31 U/L [facility] Total Protein 7.2 6.5 - 8.0 g/dL [facility] Albumin Level 4.1 3.5 - 5.0 g/dL [facility] Alkaline Phosphatase 105 39 - 117 U/L [facility] 12/31/2024 1:32 PM EST 12/31/2024 1:36 PM EST us Generic External Data Provider LAB BLOOD ORDERAB LES Final Result [facility] [address] [place] [phone] * TSH W/Reflex to FT4 (11/25/2024 8:26 AM EDT) TSH reflex Free T4 3.45 0.32 - 4.0 uIU/mL [facility] Blood Venous blood specimen / Unknown 11/25/2024 8:26 AM EDT 11/25/2024 11:35 AM EDT Krzysztof Martell MD LAB BLOOD ORDERABLES Final Resul t Performing Organization Address [facility] Co de Phone Number [facility] [address] [place] [phone] * TSH (11/25/2024 8:26 AM EDT) Thyroid Stimulating Hormone 0.76 0.32 - 4.0 uIU/mL [facility] Comment:TSH 3rd Generation ( [employer]) 11/25/2024 8:26 AM EDT 11/25/2024 11:35 AM EDT us Generic External Data Provider LAB BLOOD ORDERAB LES Final Result Performing Organization Address [facility] de Phone Number [facility] [address] [place] [phone] * T4, Free (11/25/2024 8:26 AM EDT) Free T4 (Free Thyroxine) 1.23 0.71 - 1.85 ng/dL [facility] 11/25/2024 8:26 AM EDT 11/25/2024 11:35 AM EDT us Generic External Data Provider LAB BLOOD ORDERAB LES Final Result Performing Organization Address [facility] Co de Phone Number [facility] [address] [place] [phone] * Referral to Orthopaedic Surgery (11/17/2024) Krzysztof Martell MD OUTPATIENT REFERRAL ORDERABLES F inal Result * (ABNORMAL) Lipid Panel, Standard (06/29/2022 7:58 AM EDT) Cholesterol, Total 267(H) <200 mg/dL [facility] HDL Cholesterol 52 > OR = 50 mg/dL [facility] Triglycerides 151(H) <150 mg/dL [facility] LDL Cholesterol 185(H) mg/dL (calc) [facility] Comment: Reference range: <100 Desirable range <100 mg/dL for primary prevention; <70 mg/dL for patients with CHD or diabetic patients with > or = 2 CHD risk factors. LDL-C is now calculated using the Leora calculation, which is a validated novel method providing better accuracy than the Friedewald equation in the estimation of LDL-C. Ankur ALMANZAR et al. JOSE ALEJANDRO. 2013;310(19): 3466-2317 (http://education.Carlotz/faq/CRM767) Chol/HDLC Ratio 5.1(H) <5.0 (calc) [facility] Non-HDL Cholesterol 215(H) <130 mg/dL (calc) [facility] Comment: For patients with diabetes plus 1 major ASCVD risk factor, treating to a non-HDL-C goal of <100 mg/dL (LDL-C of <70 mg/dL) is considered a therapeutic option. Blood Venous blood specimen / Unknown 06/29/2022 7:58 AM EDT 06/29/2022 7:58 AM EDT Narrative [facility] - 06/29/2022 10:32 PM EDT FASTING:YES FASTING: YES us Krzysztof Martell MD LAB BLOOD ORDERABLES Final Resul t [facility] [address], [place] [phone] [facility] [address] [place] [phone] * Pap Smear (05/09/2022 12:00 AM EDT) [...] Personal/Family Self 1960 [address] [place] [address] MEDICARE [facility] * Guarantor: Tenisha Jones V Account Type Relation to Patient Date of Phone Billing Address Personal/Family Self 1960 [address] [place] [address] * Guarantor: Tenisha Jones V Account Type Relation to Patient Date of Phone Billing Address Personal/Family Self 1960 [address] [place] [address] * Guarantor: Tenisha Jones V Account Type Relation to Patient Date of Phone Billing Address Personal/Family Self 1960 [address] [place] [address] Care Teams Shipping Order Clerk Relationship Specialty Start Date End Date Name, MD Krzysztof [address] [place] [phone] PCP - General Family Medicine 02/12/18
--- OUTSIDE RECORDS SUMMARY | 2025-01-30 16:41 | XMS_ITS | Encounter Summary ---
Author Organization [employer] Address [address] [facility] 7t [place] [address] Care Team Providers Care Appliance Servicer Name Role Phone Name, Krzysztof PERSON Primary Care Provider Reason for Visit * Reason Onset Date Comments Med Refill 09/16/2024 Encounter Details Date Type Department Care Team ([facility] st Contact Info) Description 09/16/2024 Refill [facility] [address] [place], [place] [phone] Trina August NP [address] [place], [place] [phone] Irritable bowel syndrome with both constipation and [...] Description 02/10/2025 1:30 PM EST Clinical Support [address] [address] Keely Person, SAMRA 02/11/2025 9:30 AM EST Nurse Only [address] [address] 02/18/2025 9:30 AM EST Office Visit [address] [address] Name, MD Krzysztof [address] [place] [address] documented as of this encounter Visit Diagnoses Diagnosis Irritable bowel syndrome with both constipation and diarrhea documented in this encounter Additional Health Concerns Assessment Noted Time PHQ-9 Depression Total Score: 15 025 3:53 PM EDT documented as of this encounter Care Teams Appliance Servicer Relationship Specialty Start Date End Date NameKrzysztof MD [address] [place] [address] PCP - General Family Medicine 02/12/18 documented as of this encounter
--- OUTSIDE RECORDS SUMMARY | 2025-01-30 16:41 | XMS_ITS | Encounter Summary ---
Author Organization [employer] Address [address] [facility] 7t [place] [address] Care Team Providers Care Facilities Manager Name Role Phone Name, Krzysztof PERSON Primary Care Provider [phone] Reason for Visit * Reason Comments Med Refill Encounter Details Date Type Department Care Team ([facility] st Contact Info) Description 11/28/2024 Refill [facility] [address] [place], [place] [phone] Name, MD Krzysztof [address] [place] [address] Social History Tobacco Use Types Packs/Day Years [...] Description 02/10/2025 1:30 PM EST Clinical Support [address] [address] Keely Person RN 02/11/2025 9:30 AM EST Nurse Only [address] [address] 02/18/2025 9:30 AM EST Office Visit [address] [address] Name, MD Krzysztof [address] [place] [address] documented as of this encounter Visit Diagnoses Not on filedocumented in this encounter Additional Health Concerns Assessment Noted Time PHQ-9 Depression Total Score: 15 025 3:53 PM EDT documented as of this encounter Care Teams Facilities Manager Relationship Specialty Start Date End Date NameKrzysztof MD [address] [place] [phone] PCP - General Family Medicine 02/12/18 documented as of this encounter
--- OUTSIDE RECORDS SUMMARY | 2025-01-30 16:41 | XMS_ITS | Encounter Summary ---
Author Organization [employer] Address [address] [facility] 7t [place] [address] Care Team Providers Care Cook Box Filler Name Role Phone Name, Krzysztof PERSON Primary Care Provider [phone] Reason for Visit * Reason Onset Date Comments Med Refill 05/21/2024 Encounter Details Date Type Department Care Team ([facility] st Contact Info) Description 05/21/2024 Refill [facility] [address] [place], [place] [phone] Odilia Niño FNP [address] [place] [address] Vitamin B 12 deficiency Social History Tobacco [...] Description 02/10/2025 1:30 PM EST Clinical Support [address] [address] Keely Person RN 02/11/2025 9:30 AM EST Nurse Only [address] [address] 02/18/2025 9:30 AM EST Office Visit [address] [address] Name, MD Krzysztof [address] [place] [address] documented as of this encounter Visit Diagnoses Diagnosis Vitamin B 12 deficiency Other B-complex deficiencies documented in this encounter Additional Health Concerns Assessment Noted Time PHQ-9 Depression Total Score: 0 05/29/19 24 9:06 AM EDT documented as of this encounter Care Teams Cook Box Filler Relationship Specialty Start Date End Date Name, MD Krzysztof [address] [place] [address] PCP - General Family Medicine 02/12/18 documented as of this encounter
--- OUTSIDE RECORDS SUMMARY | 2025-01-30 16:41 | XMS_ITS | Encounter Summary ---
Author Organization [employer] Address [address] [place] [address] 7t [place] [address] Care Team Providers Care Power Manager Name Role Phone Name, Krzysztof PERSON Primary Care Provider [phone] Encounter Details Date Type Department Care Team (Late Contact Info) Description 07/14/2022 Abstract [facility] [address] [place] [address] [phone] Name, MD Krzysztof [address] [place] [address] Social History Tobacco Use Types Packs/Day Years [...] Department Care Team (Late Contact Info) Description 02/10/2025 1:30 PM EST Clinical Support [facility] [address] [place] [address] [phone] Keely Person RN 02/11/2025 9:30 AM EST Nurse Only [facility] [place] [address] 02/18/2025 9:30 AM EST Office Visit [facility] [place] [address] Name, [place] [address] documented as of this encounter Procedures Procedure [...] on filedocumented in this encounter Care Teams Power Manager Relationship Specialty Start Date End Date Name, [place] [address] PCP - General Family Medicine 02/12/18 documented as of this encounter
--- OUTSIDE RECORDS SUMMARY | 2025-01-30 16:41 | XMS_ITS | Encounter Summary ---
Author Organization [employer] Address [address] [facility] 7t [place] [address] Care Team Providers Care Billing And Accounting Staff Assistant Name Role Phone Name, Krzysztof PERSON Primary Care Provider [phone] Reason for Visit * Reason Onset Date Comments Med Refill 06/11/2024 Encounter Details Date Type Department Care Team ([facility] st Contact Info) Description 06/11/2024 Refill [facility] [address] [place], [place] [phone] Name, MD Krzysztof [address] [place], [place] [phone] Lumbar back pain with radiculopathy affecting left [...] Description 02/10/2025 1:30 PM EST Clinical Support [address] [address] Keely Person RN 02/11/2025 9:30 AM EST Nurse Only [address] [address] 02/18/2025 9:30 AM EST Office Visit [address] [address] Name, MD Krzysztof [address] [place] [address] documented as of this encounter Visit Diagnoses Diagnosis Lumbar back pain with radiculopathy affecting left lower extremity documented in this encounter Additional Health Concerns Assessment Noted Time PHQ-9 Depression Total Score: 0 05/29/19 24 9:06 AM EDT documented as of this encounter Care Teams Billing And Accounting Staff Assistant Relationship Specialty Start Date End Date Name, MD Krzysztof [address] [place] [address] PCP - General Family Medicine 02/12/18 documented as of this encounter
--- OUTSIDE RECORDS SUMMARY | 2025-01-30 16:41 | XMS_ITS | Encounter Summary ---
Author Organization [employer] Address [address] 7t [place] [address] Care Team Providers Care Obgyn Nurse Name Role Phone Name, Krzysztof PERSON Primary Care Provider [phone] Encounter Details Date Type Department Care Team ([facility] st Contact Info) Description 09/20/2023 Orders Only [facility]INE [address] [place], [place] [phone] Angelica Kyle RN Vitamin B 12 deficiency [...] 02/10/2025 1:30 PM EST Clinical Support [address] [address] Keely Person RN 02/11/2025 9:30 AM EST Nurse Only [address] [address] 02/18/2025 9:30 AM EST Office Visit [address] [address] Name, MD Krzysztof [address] [place] [address] documented as of this encounter Procedures Procedure [...] PM EDT Narrative 09/28/2023 3:06 PM EDT [address] [address] XRay Report Signed Patient: Tenisha Jones V MR#: [id number] 14 : 1960 Acct:[id number] Age/Sex: 62 / F ADM Date: 09/28/23 Loc: HO.ED Attending Dr: Ordering Physician: Tamica Bullard Date of Service: 09/28/23 Procedure(s): XR tibia fibula LT 2V Accession Number(s): [id number] cc: Tamica Bullard; Krzysztof Martell MD EXAMINATION: [...] in OV> 09/28/23 1502 DD/ 1449 TD/TT: Svp Monetization: TA Procedure Note Donotuseinterpreter, Image - 09/28/2023 [place] [address] XRay Report Signed Patient: Tenisha Jones VMR#: [id number] 14 : 1960Acct:[id number] Age/Sex: 62 / FADM Date: 09/28/23 Loc: HO.ED Attending Dr: Ordering Physician: Tamica Bullard Date of Service: 09/28/23 Procedure(s): XR tibia fibula LT 2V Accession Number(s): [id number] cc: Tamica Bullard; NameKrzysztof MD EXAMINATION: XR [...] DO inOV> 09/28/23 1502 DD/ 1449 TD/TT: Svp Monetization: TA us [facility] External Provider IMG XR PROCEDURES Final Result * XR Knee 4+ Views Right (09/28/2023 1:34 PM EDT) Anatomical Region Laterality Modality Lower Extremities, Knee Right Radiogra phic Imaging 09/28/2023 1:34 PM EDT Narrative 09/28/2023 3:13 PM EDT [address] [address] XRay Report Signed Patient: Tenisha Jones V MR#: [id number] 14 : 1960 Acct:[id number] Age/Sex: 62 / F ADM Date: 09/28/23 Loc: HO.ED Attending Dr: Ordering Physician: Nella Mercer Date of Service: 09/28/23 Procedure(s): XR knee RT 4V Accession Number(s): [id number] cc: Krzysztof Martell MD; Nella Mercer EXAMINATION: [...] in OV> 09/28/23 1509 DD/ 1334 TD/TT: Svp Monetization: TA Procedure Note Donotuseinterpreter, Image - 09/28/2023 [facility] [address] [place] [address] XRay Report Signed Patient: Tenisha Jones VMR#: [id number] 14 : 1960Acct:[id number] Age/Sex: 62 / FADM Date: 09/28/23 Loc: HO.ED Attending Dr: Ordering Physician: Nella Mercer Date of Service: 09/28/23 Procedure(s): XR knee RT 4V Accession Number(s): [id number] cc: Name,Krzysztof PERSON; Nella Mercer EXAMINATION: XR [...] DO inOV> 09/28/23 1509 DD/ 1334 TD/TT: Svp Monetization: TA [facility] External Provider IMG XR PROCEDURES Final Result documented in this encounter Visit Diagnoses Diagnosis Vitamin B 12 deficiency Other B-complex deficiencies documented in this encounter Additional Health Concerns Assessment Noted Time PHQ-9 Depression Total Score: 0 05/29/19 24 9:06 AM EDT documented as of this encounter Care Teams Obgyn Nurse Relationship Specialty Start Date End Date Name, MD Krzysztof [address] [place] [address] PCP - General Family Medicine 02/12/18 documented as of this encounter
--- OUTSIDE RECORDS SUMMARY | 2025-01-30 16:41 | XMS_ITS | Encounter Summary ---
Author Organization [employer] Address [address] [facility] [address] 7t [place] [address] Care Team Providers Care Electronics Supervisor Name Role Phone Name, Krzysztof PERSON Primary Care Provider [phone] Reason for Visit * Reason Onset Date Comments Durable Medical Equipment 02/21/2023 Encounter Details Date Type Department Care Team ([facility] st Contact Info) Description 02/21/2023 Telephone [facility] [address] [place], [place] [phone] Name, MD Krzysztof [address] [place], [place] [phone] Durable Medical Equipment Social History Tobacco Use [...] requesting script to be send to a [employer] that does deliver DME. documented in this encounter Plan of Treatment Upcoming Encounters Date Type Department Care Team (Late st Contact Info) Description 02/10/2025 1:30 PM EST Clinical Support [address] [address] Keely Person RN 02/11/2025 9:30 AM EST Nurse Only [address] [address] 02/18/2025 9:30 AM EST Office Visit [address] [address] Name, MD Krzysztof [address] [place] [address] documented as of this encounter Visit Diagnoses Not on filedocumented in this encounter Care Teams Electronics Supervisor Relationship Specialty Start Date End Date Name, MD Krzysztof [address] [place] [address] PCP - General Family Medicine 02/12/18 documented as of this encounter
--- OUTSIDE RECORDS SUMMARY | 2025-01-30 16:41 | XMS_ITS | Encounter Summary ---
Author Organization [employer] Address [address] [place] [address] 7t [place] [address] Care Team Providers Care Drawing Instructor Name Role Phone Name, Krzysztof PERSON Primary Care Provider [phone] Encounter Details Date Type Department Care Team (Late st Contact Info) Description 01/18/2022 Abstract [facility] MEDICINE [address] [place] [address] [phone] Name, MD Krzysztof [address] [place] [address] Social History Tobacco Use Types Packs/Day Years [...] Support [facility]INE [address] [place] [address] [phone] Keely Person, SAMRA 02/11/2025 9:30 AM EST Nurse Only [facility]INE [address] [place] [address] [phone] 02/18/2025 9:30 AM EST Office Visit [facility] [address] [facility] [place] [id number] Name, MD Krzysztof [facility] [place] [id number] documented as of this encounter Visit Diagnoses Not on filedocumented in this encounter Care Teams Drawing Instructor Relationship Specialty Start Date End Date Name, [place] [id number] PCP - General Family Medicine 02/12/18 documented as of this encounter
--- OUTSIDE RECORDS SUMMARY | 2025-01-30 16:41 | XMS_ITS | Encounter Summary ---
Author Organization [employer] Address [address] [place] [address] 7 [place] [address] Care Team Providers Care Foundry Engineer Name Role Phone Name, Krzysztof PERSON Primary Care Provider [phone] Encounter Details Date Type Department Care Team (Late st Contact Info) Description 07/01/[address] [facility] [address] [place], [place] [phone] Nils Meza MD [address] [place], [place] [phone] Social History Tobacco Use Types Packs/Day Years [...] Description 02/10/2025 1:30 PM EST Clinical Support [facility] [address] [place] [address] [phone] Keely Person, SAMRA 02/11/2025 9:30 AM EST Nurse Only [address] [phone] 02/18/2025 9:30 AM EST Office Visit [address] [phone] Name, MD Krzysztof 230 [place] [address] documented as of this encounter Visit Diagnoses Not on filedocumented in this encounter Care Teams Foundry Engineer Relationship Specialty Start Date End Date Name, MD Krzysztof [address] [place] [address] PCP - General Family Medicine 02/12/18 documented as of this encounter
--- OUTSIDE RECORDS SUMMARY | 2025-01-30 16:41 | XMS_ITS | Encounter Summary ---
Author Organization [employer] Address [address] [facility] 7 [place] [address] Care Team Providers Care Undercutter Name Role Phone NameKrzysztof MD Primary Care Provider [phone] Reason for Visit * Reason Onset Date Comments PA Clarification 12/19/2022 Prior Authorization 12/19/2022 Phenobarbita l Encounter Details Date Type Department Care Team ([facility] st Contact Info) Description 12/19/2022 Telephone [facility] [address] [place] [address] Name, MD Krzysztof [address] [place] [address] PA Clarification ; Prior Authorization (Phenobarbital) Social [...] 1:27 PM EST TW returned call to [facility], a clarification of dosage was needed and was corrected with information on in chart. [facility] determined that a PA was not needed for this medication and that the Pharmacy was to call the Pharmacy Help Desk at [phone]. Pharmacy was called and informed. * Telephone Encounter - Mauro Figueroa - 12/19/2022 11:53 AM EST Tc from Cam with [facility] requesting a call from a nurse or provider in regards to a PA form that was received. ( Did specify which medication) Cam states that in order to approve some verification and clarification most be revised. Please contact Cam at [phone] documented in this encounter Plan of Treatment Upcoming Encounters Date Type Department Care Team (Late st Contact Info) Description 02/10/2025 1:30 PM EST Clinical Support [facility] [address] [place] [address] Keely Person, SAMRA 02/11/2025 9:30 AM EST Nurse Only [facility] [address] [place] [address] 02/18/2025 9:30 AM EST Office Visit [address] [address] Name, MD Krzysztof [address] [place] [address] documented as of this encounter Visit Diagnoses Not on filedocumented in this encounter Care Teams Undercutter Relationship Specialty Start Date End Date Name, MD Krzysztof [address] [place] [address] PCP - General Family Medicine 02/12/18 documented as of this encounter
--- OUTSIDE RECORDS SUMMARY | 2025-01-30 16:41 | XMS_ITS | Clinical Summary ---
Author Organization [facility] [address] [place] [address] [place] [phone] Phone Care Team Providers Care Aircraft Shipping Checker Name Role Phone Name, Krzysztof PERSON Primary Care Provider [phone] Allergies Active Allergy Reactions Criticality Noted Date [...] Mother a t the age of 66.goiter, CRANBERRY GROWER cancer ? Breast cancer Neg Hx Colon [...] 02/09/2025 11:00 AM EST Appointment Radiology Department [address] [phone] Health Maintenance Due Date Last Done Comments [...] is recommended in 1 year. MAMMO LOCATION: [facility], [address] [place] [address], [address], . -------- FINAL REPORT -------- Dictated By: Ashli Tirado Dictated Date: 02/11/2024 19:32 ET Assigned Physician: Ashli Tirado Reviewed and Electronically Signed By: Ashli Tirado Signed Date: 02/11/2024 19:33 ET Workstation ID: [id number] Transcribed By: Self Edit Transcribed Date: 02/11/2024 [...] is recommended in 1 year. MAMMO LOCATION: [facility], [address] [place] [address], [address], . -------- FINAL REPORT -------- Dictated By: Ashli Tirado Dictated Date: 02/11/2024 19:32 ET Assigned Physician: Ashli Tirado Reviewed and Electronically Signed By: Ashli Tirado Signed Date: 02/11/2024 19:33 ET Workstation ID: [id number] Transcribed By: Self Edit Transcribed Date: 02/11/2024 19:32 ET Krzysztof Name [employer] BI PROCEDURES Final Result from Last 3 Months or Most Recently Relevant to Health Maintenance Insurance MEDICAID - [place] MEDICARE Care Teams Aircraft Shipping Checker Relationship Specialty Start Date End Date Name, MD Krzysztof [address] [place] [address] PCP - General Internal Medicine 12/22/10
--- OUTSIDE RECORDS SUMMARY | 2025-01-30 16:41 | XMS_ITS | Encounter Summary ---
Author Organization [employer] Address [address] [facility] 7t [place] [address] Care Team Providers Care Loaders Name Role Phone Name, Krzysztof PERSON Primary Care Provider [phone] Reason for Visit * Reason Onset Date Comments Med Refill 05/21/2024 Encounter Details Date Type Department Care Team ([facility] st Contact Info) Description 05/21/2024 Refill [facility] [address] [place], [place] [phone] Name, MD Krzysztof [address] [place] [address] Social History Tobacco Use Types Packs/Day Years [...] Description 02/10/2025 1:30 PM EST Clinical Support [address] [address] Keely Person RN 02/11/2025 9:30 AM EST Nurse Only [address] [address] 02/18/2025 9:30 AM EST Office Visit [address] [address] Name, MD Krzysztof [address] [place] [address] documented as of this encounter Visit Diagnoses Not on filedocumented in this encounter Additional Health Concerns Assessment Noted Time PHQ-9 Depression Total Score: 0 05/29/19 24 9:06 AM EDT documented as of this encounter Care Teams Loaders Relationship Specialty Start Date End Date Name, MD Krzysztof [address] [place] [address] PCP - General Family Medicine 02/12/18 documented as of this encounter
== END 2025-01-30 15:49 | disposition home or self-care (01) ==
LOC: HO.CT 15:48
PROVIDERS: PCP Internal Medicine Geriatric Medicine; Visit Provider Physician Assistant Medical
DX: F17.210 Nicotine dependence, cigarettes, uncomplicated (principal)
CPT/HCPCS: 71271

== ENCOUNTER → 2025-01-30 15:50 | Outpatient (BNV) | payer MEDICARE, MEDICAID, SELFPAY | PROVIDERS: PCP Internal Medicine Geriatric Medicine; Visit Provider Radiology Diagnostic Radiology | DX: Z12.2 Encounter for screening for malignant neoplasm of respiratory organs (principal); Z87.891 Personal history of nicotine dependence | CPT/HCPCS: 71271 ==